=== PATIENT | female | born 1955 | race Caucasian/White ===

== ENCOUNTER 2016-08-14 08:03 | Outpatient (CLI) | payer MEDICAID | END 2016-08-14 08:04 | disposition home or self-care (01) | DX: I10 Essential (primary) hypertension (principal); Z13.1 Encounter for screening for diabetes mellitus; Z13.220 Encounter for screening for lipoid disorders; Z13.29 Encounter for screening for other suspected endocrine disorder ==

== ENCOUNTER 2016-09-26 16:17 | Outpatient (CLI) | payer MEDICAID | END 2016-09-26 16:18 | disposition home or self-care (01) | DX: M19.012 Primary osteoarthritis, left shoulder (principal); M75.92 Shoulder lesion, unspecified, left shoulder ==

== ENCOUNTER 2017-04-07 09:47 | Outpatient (CLI) | payer MEDICAID ==
--- NOTE | 2017-04-07 13:15 | XRAY Report ---
COMPLETE LUMBAR SPINE: 04/07/2017 CLINICAL INDICATION: Degenerative disk disease. COMPARISON: 12/24/2010 FINDINGS: AP, lateral, oblique, coned-down views of the lumbar spine demonstrate moderate degenerati ve changes, with disk space narrowing worst at L5-S1. There is no evidence of interval compression f racture. Left nephrolithiasis has decreased in the interval. IMPRESSION: MODERATE DEGENERATIVE DISC AND FACET DISEASE. 13:9:18 JOB #: [id number] EXT JOB #:[id number]
== END 2017-04-07 09:48 | disposition home or self-care (01) ==
LOC: DI.S 09:47
PROVIDERS: ATTEND Nurse Practitioner Family
DX: M51.36 Other intervertebral disc degeneration, lumbar region (principal); M47.896 Other spondylosis, lumbar region
CPT/HCPCS: 72110

== ENCOUNTER 2017-05-09 09:53 | Emergency (ER) | payer MEDICAID ==
--- NOTE | 2017-05-09 11:29 | ED Physician Documentation ---
PD HPI UPPER EXT INJURY - Stated complaint Stated Complaint: LEFT SHOULDER PX - Chief complaint Chief Complaint: Ext Problem - History obtained from History obtained from: Patient - History of Present Illness Location: Left, Shoulder Type of injury: Other (has had pain in the shoulder due to arthritis, with prior steroid injection to it. Has increased pain over baseline, without new injury. Same symptoms at anterolateral shoulder, worse with any ROM. Does not have sling.). No: Fall, Twist Timing - duration: Days (increased pain in shoulder for several days without apparent new injury.) Timing - details: Gradual onset, Still present Improved by: Immobilization Worsened by: Moving, Palpating Associated symptoms: Numbness (lateral upper arm). No: Weakness, Swelling, Discolored Similar symptoms before: Diagnosis (shoulder arthritis) Review of Systems Constitutional: denies: Fever, Chills Skin: denies: Rash, Lesions Musculoskeletal: denies: Neck pain, Back pain Neurologic: reports: Numbness (lateral upper arm. 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 : Incontinence, Frequency HEENT: None Psych: Anxiety, Panic attacks Musculoskeletal: None Derm: None - Past Surgical History Past Surgical History: Yes General: Appendectomy Ortho: Hip replacement - Present Medications Home Medications: Ambulatory Orders Medication Instructions Recorded Confirmed Loratadine [Claritin] 10 mg PO DAILY 02/01/13 05/09/17 Oxybutynin [Ditropan] 5 mg PO BID 02/01/13 05/09/17 Ranitidine HCl 75 mg PO DAILY 02/01/13 05/09/17 Ipratropium/Albuterol [Duoneb] 3 ml INH BID #1 08/31/15 05/09/17 Albuterol Sulfate [Proair 1 puffs INH DAILY 11/09/15 05/09/17 Respiclick] Esomeprazole Magnesium [Nexium] 20 mg PO DAILY 11/09/15 05/09/17 Senna [Senokot] 1 tab PO DAILY PRN 11/09/15 05/09/17 Dexamethasone [Decadron] 4 mg PO DAILY #5 tablet 05/09/17 HYDROcod/ACETAM 5/325 [[place] 5/325] 1 tab PO Q6H PRN #15 tablet 05/09/17 - Allergies Allergies/Adverse Reactions: Allergies Allergy/AdvReac Type Severity Reaction Status Date / Time morphine Allergy Severe Rash Verified 05/09/17 10:03 Penicillins Allergy Intermediate Rash Verified 05/09/17 10:03 - Social History Does the pt smoke?: No Smoking Status: Never smoker Does the pt drink ETOH?: No Does the pt have substance abuse?: No - Immunizations Immunizations are current?: No Immunizations: TDAP >10years/unknown - POLST Patient has POLST: No PD ED PE NORMAL - Vitals Vital signs reviewed: Yes - General General: Alert and oriented X 3, No acute distress, Well developed/nourished - Neck Neck: Supple, no meningeal sign, No bony TTP, No adenopathy - Cardiac Cardiac: RRR, No murmur - Respiratory Respiratory: Clear bilaterally - Derm Derm: Normal color, Warm and dry, No rash - Extremities Extremities: Other (left shoulder tender lateral and anteriorly mostly. No obvious deformity. No rash. She is guarding motion of the shoulder. Pain with any attempted ROM, but owrse with abduction and external rotation. ) Results - Vitals Vitals: Vital Signs - 24 hr 05/09/17 05/09/17 10:00 12:29 Temperature 36.5 C Heart Rate 89 77 Respiratory 16 17 Rate Blood Pressure 148/83 H 131/65 H O2 Saturation 100 100 Oxygen O2 Source Room air Departure - Departure Disposition: 01 Home, Self Care Clinical Impression: Shoulder pain, left Qualifiers: Chronicity: acute Qualified Code(s): M25.512 - Pain in left shoulder Condition: Stable Record reviewed to determine appropriate education?: Yes Follow-Up: Debby Hendrix ARNP [Primary Care Provider] - Prescriptions: Dexamethasone [Decadron] 4 mg PO DAILY #5 tablet HYDROcod/ACETAM 5/325 [[place] 5/325] 1 tab PO Q6H PRN #15 tablet PRN Reason: Pain Comments: Continue the Aleve twice daily. Add Decadron daily for 5 more days to try to reduce inflammation in the shoulder. Add Tylenol 500 mg every 6 hours as needed for pain. Alternatively hydrocodone every 6 hours for pain. Follow-up with your primary care or orthopedics, call for an appointment. Discharge Date/Time: 05/09/17 12:39
[2017-05-09] MEDS ORDERED: DEXAMETHASONE 10 MG/ML VIAL PO STA (12:18)
[2017-05-09] MEDS ORDERED: HYDROcod/ACETAM 5/325 MG TABLET PO STA (12:18)
[2017-05-09] MEDS ORDERED: DEXAMETHASONE 10 MG/ML VIAL ONE (12:29)
[2017-05-09] MEDS ORDERED: HYDROcod/ACETAM 5/325 MG TABLET ONE (12:29)
[2017-05-09] MEDS ORDERED: CHERRY SYRUP 10 ML UDC PO ONE (12:30)
[2017-05-09 12:32] VITALS: BP 131/65
== END 2017-05-09 12:39 | disposition home or self-care (01) ==
LOC: ED 09:53
DX: M25.512 Pain in left shoulder (principal); I10 Essential (primary) hypertension; J45.909 Unspecified asthma, uncomplicated; K21.9 Gastro-esophageal reflux disease without esophagitis
CPT/HCPCS: 99283; A9270

== ENCOUNTER 2017-06-16 07:41 | Outpatient (CLI) | payer MEDICAID ==
--- NOTE | 2017-06-16 11:27 | MRI Report ---
EXAM: LEFT SHOULDER MRI WITHOUT CONTRAST EXAM DATE: 06/16/2017 08:19 AM. CLINICAL HISTORY: Left rotator cuff tear. Chronic pain. COMPARISON: Prior MRI 09/26/2016. TECHNIQUE: Multiplanar, multisequence T1-weighted and fluid-sensitive sequences of the shoulder witho ut contrast. Other: None. FINDINGS: Acromioclavicular Region: The acromion is type II. There is marked edema of the distal acromion where it overlies the humeral head. The inferior cortical surface of the acromion appears discontinuous jansen ggesting erosion or fracture. The acromioclavicular joint appears unremarkable. There is fluid in the subacromial bursa. Glenohumeral Region: There is subchondral cyst formation in the posterior half of the bony glenoid, w ith remodeling of the subchondral bone and thinning of the overlying hyaline cartilage. There is post erior and superior subluxation of the humeral head with osteophyte formation. There is moderate thick ening of the humeral hyaline cartilage. Bone Marrow: See above. Labrum: The posterior labrum appears torn in both the posterior superior and posteroinferior quadrant s. The anterior and superior labrum appear intact. Musculature/Rotator Cuff: There is tendinosis and low-grade partial thickness tearing of supraspinatu s without atrophy. Infraspinatus and subscapularis appear intact. No edema or fatty atrophy. Biceps Tendon: The long head of the biceps tendon and biceps nicolas are intact. Other: The subcutaneous tissues are unremarkable. IMPRESSION: 1. Findings suggestive of prior posterior dislocation with osteochondral injury of the posterior half of the bony glenoid. There is moderate glenohumeral osteoarthritis. The finding is unchanged when co mpared with the prior study. 2. Posterior and superior subluxation of the humeral head, unchanged. 3. Marked marrow edema affecting the acromion where it overlies the humeral head, suggesting either s evere reactive edema from pseudoarticulation, or a nondisplaced fracture from recent trauma. This fin ding was not present on the prior study. 4. Subacromial bursal effusion. [facility] MUSCULOSKELETAL RADIOLOGY SECTION Referring Provider Line: [phone] SITE ID: [id number]
== END 2017-06-16 07:42 | disposition home or self-care (01) ==
LOC: DI 07:41
PROVIDERS: ATTEND Orthopaedic Surgery
DX: M75.102 Unspecified rotator cuff tear or rupture of left shoulder, not specified as traumatic (principal); M75.02 Adhesive capsulitis of left shoulder; M19.012 Primary osteoarthritis, left shoulder; M25.412 Effusion, left shoulder

== ENCOUNTER 2017-09-05 14:00 | Emergency (ER) | payer MEDICAID ==
[2017-09-05 14:16] VITALS: BP 154/90
--- NOTE | 2017-09-05 15:25 | ED Physician Documentation ---
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 : Incontinence, Frequency HEENT: None Psych: Anxiety, Panic attacks Musculoskeletal: None Derm: None - Past Surgical History Past Surgical History: Yes General: Appendectomy Ortho: Hip replacement - Present Medications Home Medications: Ambulatory Orders Medication Instructions Recorded Confirmed Loratadine [Claritin] 10 mg PO DAILY 02/01/13 05/09/17 Oxybutynin [Ditropan] 5 mg PO BID 02/01/13 05/09/17 Ranitidine HCl 75 mg PO DAILY 02/01/13 05/09/17 Ipratropium/Albuterol [Duoneb] 3 ml INH BID #1 08/31/15 05/09/17 Albuterol Sulfate [Proair 1 puffs INH DAILY 11/09/15 05/09/17 Respiclick] Esomeprazole Magnesium [Nexium] 20 mg PO DAILY 11/09/15 05/09/17 Senna [Senokot] 1 tab PO DAILY PRN 11/09/15 05/09/17 Dexamethasone [Decadron] 4 mg PO DAILY #5 tablet 05/09/17 HYDROcod/ACETAM 5/325 [[place] 5/325] 1 tab PO Q6H PRN #15 tablet 05/09/17 Clindamycin [Cleocin] 300 mg PO Q6H 7 Days capsule 09/05/17 oxyCODONE [Roxicodone] 5 mg PO Q4-6H PRN #6 tablet 09/05/17 - Allergies Allergies/Adverse Reactions: Allergies Allergy/AdvReac Type Severity Reaction Status Date / Time morphine Allergy Severe Rash Verified 05/09/17 10:03 Penicillins Allergy Intermediate Rash Verified 05/09/17 10:03 - Social History Does the pt smoke?: No Smoking Status: Never smoker Does the pt drink ETOH?: No Does the pt have substance abuse?: No - Immunizations Immunizations are current?: No Immunizations: TDAP >10years/unknown - POLST Patient has POLST: No PD ED PE NORMAL - Vitals Vital signs reviewed: Yes - HEENT HEENT: Other (extensive decay with teeth rotted to the gum lines, no trsimus but tender to palpate upper gum line, no visible abscess to anish) - Neck Neck: Supple, no meningeal sign - Cardiac Cardiac: RRR - Respiratory Respiratory: No respiratory distress - Abdomen Abdomen: Soft, Non tender - Neuro Neuro: Alert and oriented X 3 Results - Vitals Vitals: Vital Signs - 24 hr 09/05/17 14:13 Temperature 36.9 C Heart Rate 101 H Respiratory 18 Rate Blood Pressure 154/90 H O2 Saturation 96 Oxygen O2 Source Room air Departure - Departure Disposition: Home, Self Care Clinical Impression: Dental infection Condition: Good Instructions: ED Tooth Pain Prescriptions: Clindamycin [Cleocin] 300 mg PO Q6H 7 Days capsule oxyCODONE [Roxicodone] 5 mg PO Q4-6H PRN #6 tablet PRN Reason: Pain Comments: Take the clindamycin Take tylenol for mild to moderate pain - no more than 3000 mg per day May take oxycodone as needed for severe pain but please limit use of narcotics. Follow up with [facility] - the antibiotics will help for the short term but will not solve the underlying problem
== END 2017-09-05 15:35 | disposition home or self-care (01) ==
LOC: ED 14:00
DX: K04.7 Periapical abscess without sinus (principal); I10 Essential (primary) hypertension; Z96.649 Presence of unspecified artificial hip joint
CPT/HCPCS: 99283

== ENCOUNTER 2017-10-21 07:48 | Day surgery (SDC) | payer MEDICAID ==
[2017-10-21] MEDS ORDERED: KETOROLAC 60 MG/2 ML VIAL IVP STA (08:08)
--- NOTE | 2017-10-21 08:11 | ED Physician Documentation ---
PD HPI ABD PAIN - Stated complaint Stated Complaint: ABD PX - Chief complaint Chief Complaint: Abd Pain - History obtained from History obtained from: Patient - History of Present Illness Timing - onset: How many weeks ago (1) Timing - details: Intermittant Quality: Pain Location: RUQ Worsened by: Eating Associated symptoms: No: Fever, Nausea, Vomiting, Diarrhea, Dysuria Similar symptoms before: Has not had sx before - Additional information Additional information: The patient is a 62-year-old female who presents with right upper quadrant abdominal pain. She has had similar pain intermittently for the past week. It is worse after eating. She denies fever, vomiting, diarrhea, or dysuria. She denies history of similar symptoms in the past. Past medical history is significant for asthma. She is status post appendectomy. Review of Systems Constitutional: denies: Fever Nose: denies: Congestion Throat: denies: Sore throat Cardiac: denies: Chest pain / pressure Respiratory: denies: Dyspnea, Cough GI: reports: Abdominal Pain. 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 : Incontinence, Frequency HEENT: None Psych: Anxiety, Panic attacks Musculoskeletal: None Derm: None - Past Surgical History Past Surgical History: Yes General: Appendectomy Ortho: Hip replacement - Present Medications Home Medications: Ambulatory Orders Medication Instructions Recorded Confirmed Loratadine [Claritin] 10 mg PO DAILY 02/01/13 10/21/17 Oxybutynin [Ditropan] 5 mg PO BID 02/01/13 10/21/17 Ranitidine HCl 75 mg PO DAILY 02/01/13 10/21/17 Ipratropium/Albuterol [Duoneb] 3 ml INH BID #1 08/31/15 10/21/17 Albuterol Sulfate [Proair 1 puffs INH DAILY 11/09/15 10/21/17 Respiclick] Esomeprazole Magnesium [Nexium] 20 mg PO DAILY 11/09/15 10/21/17 Senna [Senokot] 1 tab PO DAILY PRN 11/09/15 10/21/17 - Allergies Allergies/Adverse Reactions: Allergies Allergy/AdvReac Type Severity Reaction Status Date / Time morphine Allergy Severe Rash Verified 05/09/17 10:03 Penicillins Allergy Intermediate Rash Verified 05/09/17 10:03 - Social History Does the pt smoke?: No Smoking Status: Never smoker Does the pt drink ETOH?: No Does the pt have substance abuse?: No - Immunizations Immunizations are current?: No Immunizations: TDAP >10years/unknown - POLST Patient has POLST: No PD ED PE NORMAL - Vitals Vital signs reviewed: Yes (Systolic hypertension initially.) - General General: Alert and oriented X 3, Well developed/nourished - HEENT HEENT: Atraumatic, Pharynx benign - Neck Neck: No adenopathy, No JVD - Cardiac Cardiac: RRR, No murmur - Respiratory Respiratory: No respiratory distress, Clear bilaterally - Abdomen Abdomen: Normal bowel sounds, Soft, No organomegaly, Other (Tenderness to palpation in the right upper quadrant, without rebound tenderness or guarding.) - Back Back: Other (Mild right CVA tenderness to percussion.) - Derm Derm: No rash - Extremities Extremities: No edema, No calf tenderness / cord - Neuro Neuro: Alert and oriented X 3, No motor deficit, Normal speech Results - Vitals Vitals: Vital Signs - 24 hr 10/21/17 10/21/17 07:57 09:47 Temperature 36.0 C L Heart Rate 80 75 Respiratory 17 16 Rate Blood Pressure 148/73 H 119/66 O2 Saturation 100 100 Oxygen O2 Source Room air - Labs Labs: Laboratory Tests 10/21/17 10/21/17 10/21/17 08:08 08:19 08:19 WBC 8.1 RBC 4.56 Hgb 13.7 Hct 40.1 MCV 88.0 MCH 30.0 MCHC 34.1 RDW 13.5 Plt Count 178 MPV 8.9 Neut # 3.4 Lymph # 3.3 [place] # 1.0 Eos # 0.4 Baso # 0.1 Absolute Nucleated RBC 0.00 Nucleated RBC % 0.0 Sodium 137 Potassium 3.9 Chloride 99 L Carbon Dioxide 31 Anion Gap 7.0 BUN 22 H Creatinine 0.7 Estimated GFR (MDRD) 85 L Glucose 89 Calcium 10.1 Total Bilirubin 0.6 AST 43 H ALT 178 H Alkaline Phosphatase 116 Total Protein 7.4 Albumin 4.3 Globulin 3.1 Albumin/Globulin Ratio 1.4 Lipase 19 L Urine Color YELLOW Urine Clarity CLEAR Urine pH 6.5 Ur Specific [place] <=1.005 Urine Protein NEGATIVE Urine Glucose (UA) NEGATIVE Urine Ketones NEGATIVE Urine Occult Blood NEGATIVE Urine Nitrite NEGATIVE Urine Bilirubin NEGATIVE Urine Urobilinogen 0.2 (NORMAL) Ur Leukocyte Esterase NEGATIVE Ur Microscopic Review NOT INDICATED Urine Culture Comments NOT INDICATED - Rads (name of study) RUQ U/S Radiology: Prelim report reviewed, EMP read contemporaneously, See rad report ( Cholelithiasis. No biliary dilatation, common bile duct 5 mm. Fatty liver.) PD MEDICAL DECISION MAKING - ED course Complexity details: reviewed results, re-evaluated patient, considered differential, d/w patient, d/w consultant education ED course: The patient's presentation is most consistent with symptomatic cholelithiasis, with tenderness to palpation of the right upper quadrant, and with ultrasound that reveals gallstones, with out evidence of acute cholecystitis. Her CBC reveals a normal white count of 8.1. Liver enzymes are normal except for mildly elevated ALT of 178. Treatment in the emergency department included administration of ketorolac 30 mg IV. The patient's pain improved with the above treatment. I discussed her condition with Dr. Cruz, who plans surgical intervention. Departure - Departure Disposition: ED Transfer to [facility] Clinical Impression: Symptomatic cholelithiasis Condition: Stable
[2017-10-21 08:22] LABS: BILIRUBIN,URINE NEGATIVE (NEGATIVE); GLUCOSE, URINE (UA) NEGATIVE (NEGATIVE); KETONES,URINE (UA) NEGATIVE (NEGATIVE); LEUKOCYTE ESTERASE, URINE NEGATIVE (NEGATIVE); NITRITE,URINE NEGATIVE (NEGATIVE); OCCULT BLOOD,URINE NEGATIVE (NEGATIVE); PH,URINE 6.5 PH (5.0-7.5); PROTEIN,URINE NEGATIVE (NEGATIVE); UROBILINOGEN,URINE 0.2 (NORMAL) E.U./dL (NORMAL)
[2017-10-21 08:26] LABS: BASOPHILS # (AUTO) 0.1 10^3/uL (0.0-0.1); BASOPHILS % (AUTO) 0.8 %; EOSINOPHILS # (AUTO) 0.4 10^3/uL (0.0-0.7); EOSINOPHILS % (AUTO) 4.8 %; HGB - HEMOGLOBIN 13.7 g/dL (12.0-16.0); LYMPHOCYTES # (AUTO) 3.3 10^3/uL (1.5-3.5); LYMPHOCYTES % (AUTO) 40.6 %; MEAN CORPUSCULAR HGB CONC 34.1 g/dL (32.0-36.0); MEAN PLATELET VOLUME 8.9 fL (7.9-10.8); MONOCYTES % (AUTO) 11.8 %; NEUTROPHILS # (AUTO) 3.4 10^3/uL (1.5-6.6); PLT - PLATELET COUNT 178 10^3/uL (130-450); RED BLOOD COUNT 4.56 10^6/uL (4.20-5.40); RED CELL DISTRIBUTION WIDTH 13.5 % (12.0-15.0); WHITE BLOOD COUNT 8.1 x10^3/uL (4.8-10.8)
[2017-10-21 08:28] LABS: CLARITY,URINE CLEAR (CLEAR)
[2017-10-21 08:38] LABS: ALBUMIN 4.3 g/dL (3.2-5.5); ALBUMIN/GLOBULIN RATIO 1.4 (1.0-2.2); BILIRUBIN,TOTAL 0.6 mg/dL (0.2-1.0); CALCIUM 10.1 mg/dL (8.5-10.3); CREATININE 0.7 mg/dL (0.4-1.0); TOTAL PROTEIN 7.4 g/dL (6.7-8.2)
--- NOTE | 2017-10-21 09:59 | Ultrasound Report ---
RIGHT UPPER QUADRANT ULTRASOUND: 10/21/2017 CLINICAL INDICATION: Pain. TECHNIQUE: Real-time scanning was performed with traffic representative static images obtained. FINDINGS: The liver measures 20 cm. Hepatic echogenicity is increased, compatible with fatty infiltration. No focal hepatic lesion or intrahepatic biliary dilatation is present. The common bile duct measures 5 mm. The gallbladder demonstrates multiple calculi. No wall thickening or pericholecystic fluid is present. The right kidney measures 11.7 cm, and demonstrates no hydronephrosis. No free fluid is present. IMPRESSION: CHOLELITHIASIS, WITHOUT EVIDENCE OF BILIARY OBSTRUCTION. FATTY INFILTRATION OF THE LIVER. TD: 10/21/2017 09:58
--- NOTE | 2017-10-21 10:38 | CONSULTATION NOTE ---
Referring Provider Name of Referring Provider:: MD Tereza Consult Date: 10/21/17 Chief Complaint - Chief Complaint Chief Complaint: RUQ pain worsened with eating History of Present Illness - Admitted From Admitted From:: NOT admitted but brought in as outpatient for outpatient surgery - History Obtained From Records Reviewed: Yes History obtained from: Patient Exam Limitations: None - History of Present Illness HPI Comment/Other: Dr. Starks called me on consultation on this very pleasant 62-year-old female who was interviewed in room 8 at [facility]'s emergency department. Her pain started approximately 1 week ago. She is dieting attempt to lose weight and when the pain started her daughter thought it was because she had not eaten anything. The daughter recommended that she eats some food and she had some chicken which made the pain worse. Since that occurred she has had waxing and waning pain for the past 24-36 hours the pain was unremitting and she came to the emergency department. Has not been associated with nausea, vomiting, melena, hematochezia, hematemesis, constipation, or diarrhea. 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 : reports: Incontinence, Frequency HEENT: reports: None Psych: reports: Anxiety, Panic attacks Musculoskeletal: reports: None Derm: reports: None MRSA Hx?: Yes - Past Surgical History General: reports: Appendectomy Ortho: reports: Hip replacement - Substance History Use: Uses substance without health or social issues: NONE Abuse: Recurrent use of substance despite neg consequences: NONE Dependence: Experiences withdrawal or developed tolerances: NONE - POLST Patient has POLST: No Meds/Allgy - Home Medications Home Medications: Ambulatory Orders Medication Instructions Recorded Confirmed Loratadine [Claritin] 10 mg PO DAILY 02/01/13 10/21/17 Oxybutynin [Ditropan] 5 mg PO BID 02/01/13 10/21/17 Ranitidine HCl 75 mg PO DAILY 02/01/13 10/21/17 Ipratropium/Albuterol [Duoneb] 3 ml INH BID #1 08/31/15 10/21/17 Albuterol Sulfate [Proair 1 puffs INH DAILY 05/12/16 04/24/18 Respiclick] Esomeprazole Magnesium [Nexium] 20 mg PO DAILY 11/09/15 10/21/17 Senna [Senokot] 1 tab PO DAILY PRN 11/09/15 10/21/17 - Allergies Allergies/Adverse Reactions: Allergies Allergy/AdvReac Type Severity Reaction Status Date / Time morphine Allergy Severe Rash Verified 05/09/17 10:03 Penicillins Allergy Intermediate Rash Verified 05/09/17 10:03 Review of Systems - Constitutional Constitutional: denies: Fatigue, Fever, Chills, Malaise - Eyes Eyes: denies: Pain - Ears, Nose & Throat Ears, Nose & Throat: denies: Ear pain - Cardiovascular Cariovascular: denies: Irregular heart rate - Respiratory Respiratory: reports: Wheezing - Gastrointestinal Gastrointestinal: reports: Abdominal pain. denies: Diarrhea, Rectal bleeding, Black stools, Bloody stools, Nausea, Vomiting, Bile emesis, Gautam blood emesis - Genitourinary Genitourinary: denies: Dysuria - Musculoskeletal Musculoskeletal: denies: Muscle pain - Integumentary Integumentary: denies: Rash - Neurological Neurological: denies: General weakness, Focal weakness Exam - Vital Signs Reviewed Vital Signs: Yes Vital Signs: Vital Signs x48h Temp Pulse Resp BP Pulse Ox 10/21/17 09:47 75 16 119/66 100 10/21/17 07:57 36.0 C L 80 17 148/73 H 100 - Physical Exam General Appearance: positive: No acute distress Eyes Bilateral: positive: No lid inflammation, Conjunctivae nml, No scleral icterus ENT: positive: Dry mucous membranes, Other (Poor dentition.) Neck: positive: Trachea midline Respiratory: positive: Chest non-tender, No respiratory distress, Breath sounds nml Cardiovascular: positive: Regular rate & rhythm Abdomen: positive: Nml bowel sounds, Tenderness (In right upper quadrant.). negative: Hepatomegaly, Splenomegaly Skin: positive: Color nml Extremities: positive: Nml appearance Neurologic/Psychiatric: positive: Oriented x3 Conclusion/Plan - Diagnosis Diagnosis: Symptomatic cholelithiasis - Plan Plan: Laparoscopic cholecystectomy, possible open cholecystectomy, possible intraoperative cholangiogran, possible common bile duct exploration. The indications, procedure, alternatives including no surgery, ingestion of Actigall , possible risks including infection (deep or superficial), bleeding requiring transfusion (with all of its risks), common bile duct injury requring repair and additional surgery, and were fully explained to the patient and all questions answered. I also explained the pathophysiology. I explained that following the surgery I did not want her lifting anything over 15 pounds for 6 weeks to allow for optimal healing and to decrease the likelihood that a hernia would occur. All questions were fully answered. Verbal and written consent was obtained. The patient, in preparation for surgery will be nothing by mouth , and receive 2 gm of Cephalexin with induction. I asked her to contact me with any surgical questions and her concerns and she stated that she would. I asked her to let me know if there is any way we can make her stay at [facility] more comfortable and she stated that she would let me know. 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 I explained that she could definitely be part of the paper sealer but that she may be tired. The plan is to do this operation as an outpatient procedure and to discharge her home following the procedure. 35 minutes of [id number] time spent with the patient, over 80% in discussion and coordination of her care - Lab Results Fish Bones: 10/21/17 08:19 10/21/17 08:19 - Diagnostic Imaging Results Diagnostic Imaging Results: positive: Prelim report reviewed (She had a cup of coffee with creamer at 0630 this morning.), Final report reviewed
[2017-10-21] MEDS ORDERED: BUPIVACAINE 0.5% PF 30 ML VIAL ONE (10:40)
[2017-10-21] MEDS ORDERED: LACTATED RINGERS 1,000 ML IV ONE ×2 (11:09→12:01)
[2017-10-21] MEDS ORDERED: ONDANSETRON 4 MG/2 ML VIAL IVP ONE (11:30)
[2017-10-21] MEDS ORDERED: MIDAZOLAM 2 MG/2 ML VIAL IVP ONE (11:30)
[2017-10-21] MEDS ORDERED: SUCCINYLCHOLINE 200 MG/10 ML VIAL IVP ONE (11:30)
[2017-10-21] MEDS ORDERED: METOPROLOL 5 MG/5 ML VIAL IVP ONE (11:30)
[2017-10-21] MEDS ORDERED: ceFAZolin 1 GM VIAL IV ONE (11:30)
[2017-10-21] MEDS ORDERED: KETOROLAC 30 MG/ML VIAL IVP ONE (11:30)
[2017-10-21] MEDS ORDERED: fentaNYL 250 MCG/5 ML VIAL IVP ONE (11:30)
[2017-10-21] MEDS ORDERED: PROPOFOL 200 MG/20 ML VIAL IVP ONE (11:30)
[2017-10-21] MEDS ORDERED: ROCURONIUM 50 MG/5 ML VIAL IVP ONE (11:30)
[2017-10-21] MEDS ORDERED: DEXAMETHASONE 4 MG/ML VIAL IVP ONE (11:30)
[2017-10-21] MEDS ORDERED: LIDOCAINE-MPF 2% 5 ML VIAL IM ONE (11:30)
[2017-10-21] MEDS ORDERED: BUPIVACAINE 0.5% PF 30 ML VIAL INFIL ONE ×2 (11:45→12:09)
--- NOTE | 2017-10-21 12:41 | OPERATIVE REPORT ---
Operative Report - General Procedure Date: 10/21/17 Planned Procedure: Laparoscopic cholecystectomy Pre-Op Diagnosis: Symptomatic cholelithiasis Procedure Performed: Laparoscopic cholecystectomy Post Op Diagnosis: Symptomatic cholelithiasis - Procedure Note Primary Surgeon: Dave Maxwell MD Anesthesia Provider: Yaniv Kidd CRNA Anesthesia Technique: General ET tube, Local (30 mL half percent Marcaine) IV Fluids (mL): 1,200 Estimated Blood Loss (mL): 5 Complications: None. - Other Other Information/Narrative: OPERATIVE DESCRIPTION/REPORT: After verbal and written informed consent was obtained detailing the risks of infection, bleeding with all of its risks including transfusion, common bile duct injury, and the patient was brought to the operative suite and placed in the supine position on the operating room table. Monitoring devices were applied along with TEDs and pneumatic compressive stockings. Care was taken to avoid pressure points. Prophylactic antibiotics were given. An adequate level of general endotracheal anesthesia was established by Yaniv Kidd. The abdomen was then prepped with ChloraPrep and draped in a sterile fashion. A "time in" then confirmed that the patient was identified with 3 identifiers (name, date and medical record number), the history and physical was in the chart, the signed consent confirming the procedure was in the chart, the patient was in the correct position, the aforementioned prophylactic measures were in place or given, we had the correct personnel and equipment to complete the procedure and that anesthesia, surgery and nursing were given an opportunity to express any concerns. The initial incision was at the umbilicus and dissection to the linea alba was completed using blunt dissection. The linea alba was grasped with a Trip and incised. In a similar manner the peritoneum was grasped and incised using Metzenbaum scissors. In this location, a 12 mm blunt tipped, balloon tipped port was placed and the balloon was inflated to keep the port in position. The abdominal cavity was insufflated with carbon dioxide to steady-state pressure of 15 mmHg. Three additional 5 mm ports were placed in standard location for laparoscopic cholecystectomy (subxiphoid and 2 right subcostal) under direct vision of the 30 degree laparoscope and without incident. The patient was then placed in reverse Trendelenburg position and was rotated slightly to their left. The gallbladder fundus was grasped with an atraumatic grasper. Multiple adhesions had to be taken down by blunt and sharp dissection along with electrocautery. Eventually, we identified the infundibulum, and this was then grasped and retracted inferior and laterally. Dissection was then begun in the angle of Calot. The cystic duct and (slightly medially and posteriorly) cystic artery were clearly identified. The critical view was obtained. Two clips proximally and one clip distally were used to control both the cystic duct and cystic artery. The clips were carefully placed to avoid occluding the juncture with the common bile duct. Both the cystic duct and then the cystic artery were then transected with laparoscopic zakia. The gallbladder was then removed from its fossa in a retrograde fashion using electrocautery. With the 30 degree 5 mm scope in the subxiphoid position, the gallbladder was placed in an EndoCatch bag to be extracted through the 12 mm port site. I irrigated the right upper quadrant with a liter of warm sterile saline, and the area was aspirated dry. I inspected the gallbladder fossa and there was no bleeding or bile leak. Clips on the cystic duct and cystic artery appeared to be secure. I briefly visually explored the abdomen. There was no other evidence of overt pathology. I injected the port sites at the peritoneal, fascial, and skin levels under direct vision with 0.5% Marcaine. All ports and the EndoCatch containing the gallbladder were removed. Following gallbladder removal, the remaining carbon dioxide was expelled from the abdomen. The fascia at the umbilicus was reapproximated using 2 gvzvlz-mr-jpzkl 0 Vicryl sutures. The skin at each port site was approximated using a subcuticular 4-0 Monocryl. The surgical count of instruments, needles and sponges was reported as correct twice. Mastisol, Steri-Strips and sterile surgical dressings were applied. The patient was then awakened from anesthesia, extubated, and having tolerated the procedure well, was transported to the recovery room. No complications were encountered. A "time out" confirmed the operation performed , the fluids given, the estimated blood loss and anesthesia, surgery and nursing were given an opportunity to express any concerns.
[2017-10-21] MEDS ORDERED: ONDANSETRON 4 MG/2 ML VIAL ONE (13:39)
[2017-10-21] MEDS ORDERED: oxyCOD/ACETAMIN 5 MG/325 MG TABLET PO ONE (13:39)
[2017-10-21 14:03] VITALS: BP 106/89
== END 2017-10-21 10:11 | disposition home or self-care (01) ==
LOC: ED 07:48 → SDS 10:10
PROVIDERS: ATTEND Surgery
PROC: 0FT44ZZ Resection of Gallbladder, Percutaneous Endoscopic Approach (ICD-10-PCS; principal; 2017-10-21 10:30)
DX: K80.10 Calculus of gallbladder with chronic cholecystitis without obstruction (principal); I10 Essential (primary) hypertension; J45.909 Unspecified asthma, uncomplicated
CPT/HCPCS: 36415; 47562; 76705; 80053; 81003; 83690; 85025; 96374; 99283; 99284; A9270; J0330; J3010; J7120; 81001; 87086

== ENCOUNTER 2018-05-28 08:32 | Emergency (ER) | payer MEDICAID ==
--- NOTE | 2018-05-28 08:49 | ED Physician Documentation ---
PD HPI HEENT - Stated complaint Stated Complaint: FACIAL SWELLING - Chief complaint Chief Complaint: Heent - History obtained from History obtained from: Patient - History of Present Illness Timing - onset: How many days ago (2-3) Timing - duration: Days Timing - details: Abrupt onset, Still present (worse into today) Location: Tooth (left upper tooth pain with swelling and now facial swelling. Extends to lower eyelid. No pain in eye socket nor any feeling of pressure around the eye itself.) Worsens: Temperatures, Other (palpation) Associated symptoms: Facial swelling. 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 HEENT: None Psych: Anxiety, Panic attacks Musculoskeletal: None Derm: None - Past Surgical History Past Surgical History: Yes General: Appendectomy Ortho: Hip replacement - Present Medications Home Medications: Ambulatory Orders Medication Instructions Recorded Confirmed Loratadine [Claritin] 10 mg PO DAILY 02/01/13 10/21/17 Oxybutynin [Ditropan] 5 mg PO BID 02/01/13 10/21/17 Ranitidine HCl 75 mg PO DAILY 02/01/13 10/21/17 Ipratropium/Albuterol [Duoneb] 3 ml INH BID #1 08/31/15 10/21/17 Albuterol Sulfate [Proair 1 puffs INH DAILY 11/09/15 10/21/17 Respiclick] Esomeprazole Magnesium [Nexium] 20 mg PO DAILY 11/09/15 10/21/17 Senna [Senokot] 1 tab PO DAILY PRN 11/09/15 10/21/17 Clindamycin HCl [Clindamycin 300MG 300 mg PO TID #21 capsule 05/28/18 CAP] Ondansetron Odt [Zofran] 4 mg TL Q6H PRN #10 tablet 05/28/18 Oxycodone HCl/Acetaminophen 1 each PO Q6H PRN #15 tablet 05/28/18 [Percocet 5-325 mg Tablet] - Allergies Allergies/Adverse Reactions: Allergies Allergy/AdvReac Type Severity Reaction Status Date / Time morphine Allergy Severe Rash Verified 05/28/18 08:46 Penicillins Allergy Intermediate Rash Verified 05/28/18 08:46 - Social History Does the pt smoke?: No Smoking Status: Never smoker Does the pt drink ETOH?: No Does the pt have substance abuse?: No - Immunizations Immunizations are current?: No Immunizations: TDAP >10years/unknown - POLST Patient has POLST: No PD ED PE NORMAL - Vitals Vital signs reviewed: Yes - General General: Alert and oriented X 3, Well developed/nourished - HEENT HEENT: PERRL, EOMI (without eye pain), Other (left cheek to lower eyelid with redness and swelling. No fluctuance. Some firmness just at cheek adjacent to upper teeth. Gumline with redness and swelling. No fluctuance felt. Teeth decaye d to gumline. ) - Neck Neck: Supple, no meningeal sign, No adenopathy - Cardiac Cardiac: RRR, No murmur - Respiratory Respiratory: Clear bilaterally Results - Vitals Vitals: Vital Signs - 24 hr 05/28/18 05/28/18 08:43 08:57 Temperature 36.5 C 37.1 C Heart Rate 107 H 90 Respiratory 24 18 Rate Blood Pressure 168/82 H 147/79 H O2 Saturation 99 97 Oxygen O2 Source Room air Departure - Departure Disposition: 01 Home, Self Care Clinical Impression: Dental abscess, Facial cellulitis Condition: Stable Record reviewed to determine appropriate education?: Yes Instructions: ED Cellulitis Facial, ED Abscess Dental Follow-Up: Debby Hendrix ARNP [Primary Care Provider] - Prescriptions: Clindamycin HCl [Clindamycin 300MG CAP] 300 mg PO TID #21 capsule Ondansetron Odt [Zofran] 4 mg TL Q6H PRN #10 tablet PRN Reason: Nausea / Vomiting Oxycodone HCl/Acetaminophen [Percocet 5-325 mg Tablet] 1 each PO Q6H PRN #15 tablet PRN Reason: pain Comments: Drink lots of fluids. Warm towels to the area of infection to improve blood flow and help fight the infection. Clindamycin as directed for the infection. Tylenol or Percocet if needed for pain. He can use some Aleve twice a day with food for inflammation and pain. Zofran if need for nausea from medications. Recheck if not improving over the next few days. Call your dentist to make an appointment for next week for more definitive care of the teeth cavities. Discharge Date/Time: 05/28/18 09:25
[2018-05-28 08:58] VITALS: BP 147/79
[2018-05-28] MEDS ORDERED: ACETAMINOPHEN 325 MG TABLET PO STA (09:10)
[2018-05-28] MEDS ORDERED: ONDANSETRON ODT 4 MG TABLET TL STA (09:10)
[2018-05-28] MEDS ORDERED: CLINDAMYCIN 150 MG CAPSULE PO STA (09:10)
[2018-05-28] MEDS ORDERED: DEXAMETHASONE 10 MG/ML VIAL PO STA (09:10)
[2018-05-28] MEDS ORDERED: CHERRY SYRUP 10 ML UDC PO ONE (09:20)
== END 2018-05-28 09:25 | disposition home or self-care (01) ==
LOC: ED 08:32
DX: K04.7 Periapical abscess without sinus (principal); L03.211 Cellulitis of face; I10 Essential (primary) hypertension; Z96.649 Presence of unspecified artificial hip joint
CPT/HCPCS: 99283; A9270; Q0162

== ENCOUNTER 2018-08-24 13:00 | Outpatient (CLI) | payer MEDICAID ==
--- NOTE | 2018-08-25 11:01 | XRAY Report ---
Reason: RIB PAIN,LEFT SIDED Procedure Date: 08/24/2018 Accession Number: [id number] / [id number] Procedure: XR - Ribs 2 View LT CPT Code: FULL RESULT: EXAM: LEFT RIB RADIOGRAPHY EXAM DATE: 08/24/2018 01:41 PM. CLINICAL HISTORY: RIB PAIN,LEFT SIDED. COMPARISON: CHEST 2 VIEW PA/LAT 02/01/2013 10:40 AM. TECHNIQUE: 2 views. FINDINGS: Bones: DJD spine No fracture or bone lesion. Lungs: No focal opacities evident. No pneumothorax or pleural effusions. Mediastinum: Heart and cardiomediastinal contours are unremarkable. Other: None. IMPRESSION: Normal rib radiography. RADIA
== END 2018-08-24 13:01 | disposition home or self-care (01) ==
LOC: DI 13:00
PROVIDERS: ATTEND Registered Nurse
DX: R07.81 Pleurodynia (principal)

== ENCOUNTER 2018-09-22 16:28 | Emergency (ER) | payer MEDICAID ==
[2018-09-22 19:00] LABS: BASOPHILS # (AUTO) 0.1 10^3/uL (0.0-0.1); BASOPHILS % (AUTO) 1.2 %; EOSINOPHILS # (AUTO) 0.6 10^3/uL (0.0-0.7); EOSINOPHILS % (AUTO) 6.6 %; HGB - HEMOGLOBIN 12.9 g/dL (12.0-16.0); LYMPHOCYTES # (AUTO) 3.4 10^3/uL (1.5-3.5); LYMPHOCYTES % (AUTO) 34.9 %; MEAN CORPUSCULAR HGB CONC 32.8 g/dL (32.0-36.0); MEAN CORPUSCULAR VOLUME 85.5 fL (81.0-99.0); MONOCYTES # (AUTO) 0.7 10^3/uL (0.0-1.0); MONOCYTES % (AUTO) 7.4 %; NEUTROPHILS # (AUTO) 4.9 10^3/uL (1.5-6.6); NEUTROPHILS % (AUTO) 49.9 %; PLT - PLATELET COUNT 216 10^3/uL (130-450); RED CELL DISTRIBUTION WIDTH 13.5 % (12.0-15.0); WHITE BLOOD COUNT 9.8 x10^3/uL (4.8-10.8)
[2018-09-22 19:10] LABS: ALBUMIN 4.5 g/dL (3.2-5.5); ALBUMIN/GLOBULIN RATIO 1.6 (1.0-2.2); BILIRUBIN,TOTAL 0.2 mg/dL (0.2-1.0); CALCIUM 10.4 mg/dL (8.5-10.3); CREATININE 0.8 mg/dL (0.4-1.0); TOTAL PROTEIN 7.3 g/dL (6.7-8.2)
--- NOTE | 2018-09-22 19:15 | ED Physician Documentation ---
PD HPI GI BLEED - Stated complaint Stated Complaint: RECTAL BLEED - Chief complaint Chief Complaint: Abd Pain - History obtained from History obtained from: Patient - History of Present Illness Timing - onset: Today Timing - duration: Hours Timing - details: Abrupt onset (she had a firm bowel movement earlier today and noted some blood with wiping, and then had some red blood in underwear later in the day. denies abd pain nor rectal pain.) Associated symptoms: BRBPR. 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 HEENT: None Psych: Anxiety, Panic attacks Musculoskeletal: None Derm: None - Past Surgical History Past Surgical History: Yes General: Appendectomy Ortho: Hip replacement - Present Medications Home Medications: Ambulatory Orders Medication Instructions Recorded Confirmed Loratadine [Claritin] 10 mg PO DAILY 02/01/13 10/21/17 Oxybutynin [Ditropan] 5 mg PO BID 02/01/13 10/21/17 Ranitidine HCl 75 mg PO DAILY 02/01/13 10/21/17 Ipratropium/Albuterol [Duoneb] 3 ml INH BID #1 08/31/15 10/21/17 Albuterol Sulfate [Proair 1 puffs INH DAILY 11/09/15 10/21/17 Respiclick] Esomeprazole Magnesium [Nexium] 20 mg PO DAILY 11/09/15 10/21/17 Senna [Senokot] 1 tab PO DAILY PRN 11/09/15 10/21/17 Clindamycin HCl [Clindamycin 300MG 300 mg PO TID #21 capsule 05/28/18 CAP] Ondansetron Odt [Zofran] 4 mg TL Q6H PRN #10 tablet 05/28/18 Oxycodone HCl/Acetaminophen 1 each PO Q6H PRN #15 tablet 11/29/18 [Percocet 5-325 mg Tablet] Hydrocortisone Acetate [Anucort-Hc] 25 mg RC DAILY #5 supp.rect 09/22/18 - Allergies Allergies/Adverse Reactions: Allergies Allergy/AdvReac Type Severity Reaction Status Date / Time morphine Allergy Severe Rash Verified 05/28/18 08:46 Penicillins Allergy Intermediate Rash Verified 05/28/18 08:46 - Social History Does the pt smoke?: No Smoking Status: Never smoker Does the pt drink ETOH?: No Does the pt have substance abuse?: No - Immunizations Immunizations are current?: No Immunizations: TDAP >10years/unknown - POLST Patient has POLST: No PD ED PE NORMAL - Vitals Vital signs reviewed: Yes - General General: Alert and oriented X 3, No acute distress, Well developed/nourished - Abdomen Abdomen: Soft, Non tender - Female Female : Deferred - Rectal Rectal: Other (external hemorrhoid inflammed but not thrombosed. slight bleeding. Rectal digital exam with soft brown stool in vault, which is guiac negative. ) - Back Back: No CVA TTP, No spinal TTP - Derm Derm: Normal color, Warm and dry Results - Vitals Vitals: Oxygen O2 Source Room air - Labs Labs: Microbiology 09/22/18 19:08 Urine Culture - Preliminary Urine,Random Escherichia Coli Laboratory Tests 09/22/18 09/22/18 09/22/18 18:52 18:52 19:08 WBC 9.8 RBC 4.60 Hgb 12.9 Hct 39.4 MCV 85.5 MCH 28.0 MCHC 32.8 RDW 13.5 Plt Count 216 MPV 10.0 Neut # (Auto) 4.9 Lymph # (Auto) 3.4 [place]ger # (Auto) 0.7 Eos # (Auto) 0.6 Baso # (Auto) 0.1 Absolute Nucleated RBC 0.00 Nucleated RBC % 0.0 Sodium 138 Potassium 3.8 Chloride 103 Carbon Dioxide 25 Anion Gap 10.0 BUN 21 H Creatinine 0.8 Estimated GFR (MDRD) 73 L Glucose 98 Calcium 10.4 H Total Bilirubin 0.2 AST 28 ALT 25 Alkaline Phosphatase 74 Total Protein 7.3 Albumin 4.5 Globulin 2.8 Albumin/Globulin Ratio 1.6 Lipase 24 Urine Color LT. YELLOW Urine Clarity HAZY Urine pH 6.5 Ur Specific Cuddy 1.010 Urine Protein NEGATIVE Urine Glucose (UA) NEGATIVE Urine Ketones NEGATIVE Urine Occult Blood NEGATIVE Urine Nitrite NEGATIVE Urine Bilirubin NEGATIVE Urine Urobilinogen 0.2 (NORMAL) Ur Leukocyte Esterase TRACE H Urine RBC None Seen Urine WBC 4-5 Ur Squamous Epith Cells NONE SEEN Urine Bacteria Many H Ur Microscopic Review INDICATED Urine Culture Comments INDICATED PD MEDICAL DECISION MAKING - ED course Complexity details: considered differential, d/w patient Departure - Departure Disposition: 01 Home, Self Care Clinical Impression: External hemorrhoid, bleeding Condition: Stable Record reviewed to determine appropriate education?: Yes Instructions: ED Hemorrhoids Follow-Up: Maryjane Thrasher ARNP [Primary Care Provider] - Prescriptions: Hydrocortisone Acetate [Anucort-Hc] 25 mg RC DAILY #5 supp.rect Comments: It does look like external hemorrhoids that had been bleeding. There is no signs of colon bleeding at this time. Hemorrhoid is slightly inflamed from and not bleeding currently. You can use thde-oih-mchqdth hemorrhoid cream such as Preparation H. You could use the prescription suppository for inflammation daily for 5 days. You could use both actually. Recheck if persistent over several days or more. Discharge Date/Time: 09/22/18 19:47
[2018-09-22 19:23] LABS: BILIRUBIN,URINE NEGATIVE (NEGATIVE); GLUCOSE, URINE (UA) NEGATIVE (NEGATIVE); KETONES,URINE (UA) NEGATIVE (NEGATIVE); LEUKOCYTE ESTERASE, URINE TRACE (NEGATIVE); NITRITE,URINE NEGATIVE (NEGATIVE); OCCULT BLOOD,URINE NEGATIVE (NEGATIVE); PH,URINE 6.5 PH (5.0-7.5); PROTEIN,URINE NEGATIVE (NEGATIVE); UROBILINOGEN,URINE 0.2 (NORMAL) E.U./dL (NORMAL)
[2018-09-22 19:25] LABS: CLARITY,URINE HAZY (CLEAR)
[2018-09-22 19:45] LABS: BACTERIA,URINE Many /HPF (None Seen); RBC,URINE None Seen /HPF (0-5); SQUAMOUS EPITHELIAL CELL,UR NONE SEEN (<= Few)
[2018-09-22 19:46] VITALS: BP 147/97
== END 2018-09-22 19:47 | disposition home or self-care (01) ==
LOC: ED 16:28
DX: K64.8 Other hemorrhoids (principal); I10 Essential (primary) hypertension
CPT/HCPCS: 36415; 80053; 81001; 81003; 83690; 85025; 87086; 87181; 99283

== ENCOUNTER 2019-12-06 11:05 | Outpatient (CLI) | payer MEDICAID | END 2019-12-06 23:59 | disposition home or self-care (01) | LOC: LAB.R 11:05 | PROVIDERS: ATTEND Registered Nurse | DX: R35.0 Frequency of micturition (principal) | CPT/HCPCS: 87086; 87181 ==

== ENCOUNTER 2020-03-03 09:58 | Outpatient (CLI) | payer MEDICAID ==
[2020-03-03 15:02] LABS: BASOPHILS # (AUTO) 0.1 10^3/uL (0.0-0.1); BASOPHILS % (AUTO) 0.8 %; EOSINOPHILS # (AUTO) 0.6 10^3/uL (0.0-0.7); EOSINOPHILS % (AUTO) 9.3 %; HGB - HEMOGLOBIN 11.3 g/dL (12.0-16.0); LYMPHOCYTES # (AUTO) 2.1 10^3/uL (1.5-3.5); LYMPHOCYTES % (AUTO) 34.5 %; MEAN CORPUSCULAR HEMOGLOBIN 26.2 pg (27.0-31.0); MEAN CORPUSCULAR HGB CONC 30.5 g/dL (32.0-36.0); MEAN CORPUSCULAR VOLUME 85.9 fL (81.0-99.0); MONOCYTES # (AUTO) 0.5 10^3/uL (0.0-1.0); MONOCYTES % (AUTO) 8.1 %; NEUTROPHILS # (AUTO) 2.9 10^3/uL (1.5-6.6); PLT - PLATELET COUNT 212 10^3/uL (130-450); RED BLOOD COUNT 4.32 10^6/uL (4.20-5.40); RED CELL DISTRIBUTION WIDTH 14.8 % (12.0-15.0); WHITE BLOOD COUNT 6.2 x10^3/uL (4.8-10.8)
[2020-03-03 15:25] LABS: ALBUMIN 3.9 g/dL (3.2-5.5); ALBUMIN/GLOBULIN RATIO 1.3 (1.0-2.2); ALKALINE PHOSPHATASE 76 IU/L (42-121); ALT ALANINE AMINOTRANSFERASE 35 IU/L (10-60); AST ASPARTATE AMINOTRANSFERASE 27 IU/L (10-42); BILIRUBIN,TOTAL 0.3 mg/dL (0.2-1.0); BUN - BLOOD UREA NITROGEN 16 mg/dL (6-20); CARBON DIOXIDE - CO2 26 mmol/L (21-32); CHLORIDE 102 mmol/L (101-111); CHOL/HDL RATIO 6.7 (<4.4); CHOLESTEROL 207 mg/dL; CREATININE 0.9 mg/dL (0.4-1.0); GLUCOSE 103 mg/dL (70-100); HDL CHOLESTEROL 31 mg/dL; LDL CHOLESTEROL,CALCULATED 131 mg/dL; LDL/HDL RATIO 4.2 (<4.4); SODIUM 137 mmol/L (135-145); TOTAL PROTEIN 6.9 g/dL (6.7-8.2); VLDL CHOLESTEROL 45 mg/dL
== END 2020-03-03 09:59 | disposition home or self-care (01) ==
LOC: LAB.S 09:58
PROVIDERS: ATTEND Registered Nurse
DX: R35.0 Frequency of micturition (principal); G43.909 Migraine, unspecified, not intractable, without status migrainosus; J45.909 Unspecified asthma, uncomplicated; F41.9 Anxiety disorder, unspecified; R19.8 Other specified symptoms and signs involving the digestive system and abdomen
CPT/HCPCS: 36415; 80053; 80061; 83721; 84443; 85025

== ENCOUNTER 2020-03-17 08:00 | Outpatient (CLI) | payer MEDICAID | END 2020-03-17 23:59 | disposition home or self-care (01) | LOC: LAB.R 08:00 | PROVIDERS: ATTEND Physician Assistant | DX: L03.039 Cellulitis of unspecified toe (principal) | CPT/HCPCS: 81599; 87070; 87075; 87077; 87186; 87205 ==

== ENCOUNTER 2021-07-05 08:00 | Outpatient (CLI) | payer MEDICAID ==
[2021-07-05 15:29] LABS: BASOPHILS # (AUTO) 0.1 10^3/uL (0.0-0.1); BASOPHILS % (AUTO) 1.2 %; EOSINOPHILS # (AUTO) 0.3 10^3/uL (0.0-0.7); EOSINOPHILS % (AUTO) 5.7 %; HCT - HEMATOCRIT 35.8 % (37.0-47.0); HGB - HEMOGLOBIN 11.2 g/dL (12.0-16.0); LYMPHOCYTES # (AUTO) 1.9 10^3/uL (1.5-3.5); LYMPHOCYTES % (AUTO) 31.8 %; MEAN CORPUSCULAR HEMOGLOBIN 26.2 pg (27.0-31.0); MEAN CORPUSCULAR HGB CONC 31.3 g/dL (32.0-36.0); MEAN CORPUSCULAR VOLUME 83.8 fL (81.0-99.0); MEAN PLATELET VOLUME 13.2 fL (7.9-10.8); MONOCYTES # (AUTO) 0.4 10^3/uL (0.0-1.0); MONOCYTES % (AUTO) 6.5 %; NEUTROPHILS # (AUTO) 3.2 10^3/uL (1.5-6.6); NEUTROPHILS % (AUTO) 54.6 %; PLT - PLATELET COUNT 220 10^3/uL (130-450); RED BLOOD COUNT 4.27 10^6/uL (4.20-5.40); RED CELL DISTRIBUTION WIDTH 14.6 % (12.0-15.0); WHITE BLOOD COUNT 5.8 x10^3/uL (4.8-10.8)
[2021-07-05 15:57] LABS: ALBUMIN/GLOBULIN RATIO 1.3 (1.0-2.2); ALKALINE PHOSPHATASE 75 IU/L (42-121); ALT ALANINE AMINOTRANSFERASE 31 IU/L (10-60); AST ASPARTATE AMINOTRANSFERASE 27 IU/L (10-42); BILIRUBIN,TOTAL 0.5 mg/dL (0.2-1.0); BUN - BLOOD UREA NITROGEN 15 mg/dL (6-20); CALCIUM 10.5 mg/dL (8.5-10.3); CARBON DIOXIDE - CO2 26 mmol/L (21-32); CHLORIDE 104 mmol/L (101-111); CHOL/HDL RATIO 6.6 (<4.4); CHOLESTEROL 191 mg/dL; CREATININE 0.9 mg/dL (0.4-1.0); GFR - MDRD 63 (>89); GLUCOSE 103 mg/dL (70-100); HDL CHOLESTEROL 29 mg/dL; LDL CHOLESTEROL,CALCULATED 122 mg/dL; LDL/HDL RATIO 4.2 (<4.4); MAGNESIUM 1.8 mg/dL (1.7-2.8); POTASSIUM 3.9 mmol/L (3.5-5.0); SODIUM 138 mmol/L (135-145); TRIGLYCERIDES 202 mg/dL; VLDL CHOLESTEROL 40 mg/dL
[2021-07-05 16:07] LABS: THYROID STIMULATING HORMONE 2.62 uIU/mL (0.34-5.60)
== END 2021-07-05 23:59 ==
LOC: LAB.S 08:00
PROVIDERS: ATTEND Physician Assistant Medical
DX: Z51.81 Encounter for therapeutic drug level monitoring (principal); E78.5 Hyperlipidemia, unspecified; M62.838 Other muscle spasm; Z79.899 Other long term (current) drug therapy
CPT/HCPCS: 36415; 80053; 80061; 83721; 83735; 84443; 85025

== ENCOUNTER 2022-01-08 08:00 | Outpatient (CLI) | payer MEDICARE, MEDICAID ==
--- NOTE | 2022-01-08 16:37 | XRAY Report ---
PROCEDURE: Lumbar Spine 2 View INDICATIONS: LOW BACK PAIN TECHNIQUE: 3 views of the lumbar spine were acquired. COMPARISON: 04/07/2017 FINDINGS: There are five [id number] lumbar-type vertebral bodies of normal height and alignment. Disc heig ht loss from L2 L3 through L5 S1 with associated degenerative endplate change and facet hypertrophy. Probable moderate to severe neural foraminal narrowing from L3-L4 through L5-S1. Findings are progres sed from the prior study. 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 Consider MRI, particularly if there are radicular symptoms, as there is suspected at leas t mild to moderate spinal canal and neural foraminal narrowing in the lower lumbar spine. Reviewed by: Leonel Chavarria MD on 01/08/2022 4:36 PM PDT Approved by: Leonel Chavarria MD on 01/08/2022 4:36 PM PDT Station ID: [id number]
== END 2022-01-08 23:59 | disposition home or self-care (01) ==
LOC: DI.S 08:00
PROVIDERS: ATTEND Physician Assistant
DX: M47.816 Spondylosis without myelopathy or radiculopathy, lumbar region (principal); M51.36 Other intervertebral disc degeneration, lumbar region; M51.37 Other intervertebral disc degeneration, lumbosacral region; M47.817 Spondylosis without myelopathy or radiculopathy, lumbosacral region

== ENCOUNTER 2022-01-15 08:00 | Outpatient (CLI) | payer MEDICARE, MEDICAID ==
--- NOTE | 2022-01-15 16:01 | XRAY Report ---
PROCEDURE: Shoulder 3 View LT INDICATIONS: SHOULDER PX TECHNIQUE: 3 views of the shoulder were acquired. COMPARISON: None. FINDINGS: Bones: No fractures or dislocations. No suspicious bony lesions. Visualized ribs appear intact. M oderate acromioclavicular degenerative narrowing. Small humeral spur is noted at the acromioclavicula r joint space Soft tissues: No suspicious soft tissue calcifications. IMPRESSION: Arthritic changes as above. Reviewed by: Sally Rodriguez MD on 01/15/2022 3:59 PM PDT Approved by: Sally Rodriguez MD on 01/15/2022 3:59 PM PDT Station ID: [id number]
== END 2022-01-15 23:59 | disposition home or self-care (01) ==
LOC: DI 08:00
PROVIDERS: ATTEND Physician Assistant Surgical
DX: M19.012 Primary osteoarthritis, left shoulder (principal); M25.712 Osteophyte, left shoulder

== ENCOUNTER 2022-05-06 13:15 | Outpatient (CLI) | payer MEDICARE, MEDICAID ==
[~2022-05-06 13:15] MED LIST: TRIAMCINOLONE 40 MG/ML VIAL ONE; iohexoL-240 10 ML VIAL IVP ONE; lidocaine 1% 20 ML MDV ONE
[2022-05-06] MEDS ORDERED: TRIAMCINOLONE 40 MG/ML VIAL IM ONE (14:06)
[2022-05-06] MEDS ORDERED: iohexoL-240 10 ML VIAL IVP ONE (14:07)
[2022-05-06] MEDS ORDERED: lidocaine 1% 20 ML MDV SUBQ ONE (14:08)
--- NOTE | 2022-05-06 14:33 | XRAY Report ---
PROCEDURE: Inj/Aspiration Major Joint INDICATIONS: DJD LEFT SHOULDER CONTRAST: 2 cc Omnipaque 240 FLUORO DOSAGE: 34 mGy FLUORO TIME: 1.4 MIN TECHNIQUE: The indications, alternatives, benefits, risks, and complications of the procedure were explained to the patient. Written informed consent was obtained and placed in the chart. The patient was placed in an appropriate position on the fluoroscopy table, and a site was chosen for percutaneous access un jonah fluoroscopic guidance. Local anesthetic was administered using a 1% lidocaine solution. A hypod ermic or spinal needle was then used to access the symptomatic joint. Intra-articular location of th e needle tip was confirmed by injecting a small amount of contrast, followed by steroid administratio n. The needle was then withdrawn, and a bandage applied to the puncture site. FINDINGS: Joint injected: Left glenohumeral Medications injected: 1 mL of 40 mg/mL Kenalog and I cc 1% lidocaine. Complications: None IMPRESSION: Successful fluoroscopically guided administration of steroid and anaesthetic solution into the left g lenohumeral joint. Reviewed by: Jude Beltran MD on 05/06/2022 2:32 PM PST Approved by: Jude Beltran MD on 05/06/2022 2:32 PM PST Station ID: [id number]
== END 2022-05-06 13:16 | disposition home or self-care (01) ==
LOC: DI 13:15
PROVIDERS: ATTEND Physician Assistant Surgical
DX: M19.012 Primary osteoarthritis, left shoulder (principal)
CPT/HCPCS: 20610; 77002; Q9966

== ENCOUNTER 2022-09-17 12:59 | Outpatient (CLI) | payer MEDICARE, MEDICAID ==
--- NOTE | 2022-09-18 09:28 | Mammography Report ---
BILATERAL DIGITAL SCREENING MAMMOGRAM 3D/2D: 09/17/2022 CLINICAL: Routine screening. Comparison is made to exams dated: 10/24/2015 mammogram and 04/12/2011 mammogram - [facility]. There are scattered areas of fibroglandular density in both breasts (category b / 25%-50% glandular t issue). No significant masses, calcifications, or other findings are seen in either breast. There has been no significant interval change. IMPRESSION: NEGATIVE There is no mammographic evidence of malignancy. A 1 year screening mammogram is recommended. Based on the Tyrer Cuzick model (a risk assessment model) the patients lifetime risk is 5.2% and her 10 year risk is 2.5%. According to the ACR, ACS, and NCCN guidelines, an annual breast MRI exam dami g with mammogram is recommended if the patients lifetime risk is 20% or greater. This exam was interpreted at Station ID: [id number]. NOTE: For mammograms, a report in lay terms will be sent to the patient. Approximately 15% of breast malignancies will not be visualized mammographically. In the management of a palpable breast mass, a negative mammogram must not discourage biopsy of a clinically suspicious lesion. Electronically Signed By: Hien [email or web address]/huy:09/17/2022 17:09:34 letter sent: No_Letter ACR BI-RADS Category 1: Negative 3341F PARENCHYMAL PATTERN: (A) - The breast(s) demonstrate(s) scattered fibroglandular densities. BI-RADS CATEGORY: (1) - 1 Mammogram [id number] 1 year screening LATERALITY: (B)
== END 2022-09-17 13:00 | disposition home or self-care (01) ==
LOC: DI.S 12:59
DX: Z12.31 Encounter for screening mammogram for malignant neoplasm of breast (principal)

== ENCOUNTER 2022-10-02 12:26 | Outpatient (CLI) | payer MEDICARE, MEDICAID ==
[2022-10-02 14:28] LABS: BASOPHILS # (AUTO) 0.1 10^3/uL (0.0-0.1); BASOPHILS % (AUTO) 1.1 %; EOSINOPHILS # (AUTO) 0.5 10^3/uL (0.0-0.7); EOSINOPHILS % (AUTO) 7.4 %; HCT - HEMATOCRIT 35.5 % (37.0-47.0); HGB - HEMOGLOBIN 10.5 g/dL (12.0-16.0); LYMPHOCYTES # (AUTO) 2.7 10^3/uL (1.5-3.5); LYMPHOCYTES % (AUTO) 37.3 %; MEAN CORPUSCULAR HEMOGLOBIN 24.1 pg (27.0-31.0); MEAN CORPUSCULAR HGB CONC 29.6 g/dL (32.0-36.0); MEAN CORPUSCULAR VOLUME 81.4 fL (81.0-99.0); MEAN PLATELET VOLUME 13.3 fL (7.9-10.8); MONOCYTES # (AUTO) 0.5 10^3/uL (0.0-1.0); MONOCYTES % (AUTO) 6.9 %; NEUTROPHILS # (AUTO) 3.4 10^3/uL (1.5-6.6); NEUTROPHILS % (AUTO) 46.9 %; PLT - PLATELET COUNT 236 10^3/uL (130-450); RED BLOOD COUNT 4.36 10^6/uL (4.20-5.40); RED CELL DISTRIBUTION WIDTH 15.2 % (12.0-15.0); WHITE BLOOD COUNT 7.3 x10^3/uL (4.8-10.8)
[2022-10-02 15:24] LABS: ALBUMIN 3.8 g/dL (3.2-5.5); ALBUMIN/GLOBULIN RATIO 1.3 (1.0-2.2); ALKALINE PHOSPHATASE 68 IU/L (42-121); ALT ALANINE AMINOTRANSFERASE 52 IU/L (10-60); AST ASPARTATE AMINOTRANSFERASE 48 IU/L (10-42); BILIRUBIN,TOTAL 0.4 mg/dL (0.2-1.0); BUN - BLOOD UREA NITROGEN 19 mg/dL (6-20); CARBON DIOXIDE - CO2 29 mmol/L (21-32); CHLORIDE 104 mmol/L (101-111); CHOL/HDL RATIO 8.9 (<4.4); CHOLESTEROL 250 mg/dL; GFR - MDRD 56 (>89); GLUCOSE 115 mg/dL (70-100); HDL CHOLESTEROL 28 mg/dL; LDL CHOLESTEROL,CALCULATED 147 mg/dL; LDL/HDL RATIO 5.3 (<4.4); POTASSIUM 4.1 mmol/L (3.5-5.0); SODIUM 138 mmol/L (135-145); TOTAL PROTEIN 6.7 g/dL (6.7-8.2); TRIGLYCERIDES 373 mg/dL; VLDL CHOLESTEROL 75 mg/dL
[2022-10-02 15:32] LABS: THYROID STIMULATING HORMONE 2.8 uIU/mL (0.34-5.60)
== END 2022-10-02 12:27 | disposition home or self-care (01) ==
LOC: LAB.S 12:26
PROVIDERS: ATTEND Registered Nurse
DX: Z79.899 Other long term (current) drug therapy (principal); Z13.220 Encounter for screening for lipoid disorders; Z13.29 Encounter for screening for other suspected endocrine disorder
CPT/HCPCS: 36415; 80053; 80061; 83721; 84443; 85025

== ENCOUNTER 2023-01-04 14:52 | Outpatient (CLI) | payer MEDICARE, MEDICAID | END 2023-01-04 14:53 | disposition EMS.NT | LOC: EMS 14:52 | DX: Z03.89 Encounter for observation for other suspected diseases and conditions ruled out (principal) ==

== ENCOUNTER 2023-01-05 11:48 | Outpatient (CLI) | payer MEDICARE, MEDICAID | END 2023-01-05 23:59 | disposition left against medical advice (07) | LOC: EMS 11:48 | DX: R53.1 Weakness (principal); R63.8 Other symptoms and signs concerning food and fluid intake; R23.8 Other skin changes ==

== ENCOUNTER 2023-01-05 15:25 | Inpatient (IN) | payer MEDICARE, MEDICAID ==
--- NOTE | 2023-01-05 15:58 | ED Physician Documentation ---
History of Present Illness - Stated complaint Stated Complaint: GLF - Chief complaint Chief Complaint: General - Additonal information Additional information: 67-year-old female who has a past medical history most significant for asthma and GERD presents to the emergency department for evaluation of syncope and confusion. Reportedly over the last 24 hours she has had 2 falls at home. She does not remember falling and thinks that she fainted. EMS has been out to her house twice but twice she refused transport. This morning she notified her family that she had fallen in the bathroom and family members found her in the bathroom on the floor. On presentation to the emergency department she appears quite disheveled. She is having a large volume of diarrhea. She also has large areas of abrasion and blistering on her left arm and left leg. She at this time her Son reports that she seems confused though she is able to answer person place, date and time correctly. She also has no focal deficits. Review of Systems Unable to obtain: Confused Skin: reports: Abrasion (s) Neurologic: reports: Syncope, Confused. denies: Headache, Head injury PD PAST MEDICAL HISTORY - Past Medical History Cardiovascular: Hypertension Respiratory: Asthma, Shortness of breath Endocrine/Autoimmune: None GI: GERD, Chronic constipation COLD ROLL CATCHER: None : Incontinence, Frequency HEENT: None Psych: Anxiety, Panic attacks Musculoskeletal: None Derm: None - Past Surgical History Past Surgical History: Yes General: Appendectomy Ortho: Hip replacement - Present Medications Home Medications: Ambulatory Orders Medication Instructions Recorded Confirmed Loratadine [Claritin] 10 mg PO DAILY 02/01/13 10/21/17 Oxybutynin [Ditropan] 5 mg PO BID 02/01/13 10/21/17 Ranitidine HCl 75 mg PO DAILY 02/01/13 10/21/17 Ipratropium/Albuterol [Duoneb] 3 ml INH BID #1 08/31/15 10/21/17 Albuterol Sulfate [Proair 1 puffs INH DAILY 11/09/15 10/21/17 Respiclick] Esomeprazole Magnesium [Nexium] 20 mg PO DAILY 11/09/15 10/21/17 Senna [Senokot] 1 tab PO DAILY PRN 11/09/15 10/21/17 Clindamycin HCl [Clindamycin 300MG 300 mg PO TID #21 capsule 05/28/18 CAP] Ondansetron Odt [Zofran] 4 mg TL Q6H PRN #10 tablet 05/28/18 Oxycodone HCl/Acetaminophen 1 each PO Q6H PRN #15 tablet 05/28/18 [Percocet 5-325 mg Tablet] Hydrocortisone Acetate [Anucort-Hc] 25 mg RC DAILY #5 supp.rect 09/22/18 - Allergies Allergies/Adverse Reactions: Allergies Allergy/AdvReac Type Severity Reaction Status Date / Time morphine Allergy Severe Rash Verified 05/28/18 08:46 Penicillins Allergy Intermediate Rash Verified 05/28/18 08:46 - Social History Does the pt smoke?: No Smoking Status: Never smoker Does the pt drink ETOH?: No Does the pt have substance abuse?: No - Immunizations Immunizations are current?: No Immunizations: TDAP >10years/unknown - POLST Patient has POLST: No PD ED PE EXPANDED - General General: Alert, Other (Disheveled, poor hygiene) - Cardiac Cardiac: Regular Rate, Radial strong equal, Pedal strong equal, Cap refill < 2 sec. No: Murmur Present - Respiratory Respiratory: Clear to ausultation karen. No: Distress, Labored - Abdomen Abdomen: Normal Bowel sounds, Distended. No: Tender to palpation - Derm Derm: Other (Large areas of abrasion and blistering on the left forearm left lateral thigh and hip) - Neuro Neuro: Alert and Oriented X 3, CNII-XII intact - GCS Eye Opening: Spontaneous Motor: Obeys Commands Verbal: Oriented Total: 15 Results - Vitals Vitals: Vital Signs - 24 hr 01/05/23 01/05/23 01/05/23 15:33 18:07 18:41 Temperature 36.4 C L 36.4 C L Heart Rate 108 H 100 99 Respiratory 22 16 20 Rate Blood Pressure 108/50 L 124/103 H 156/70 H O2 Saturation 96 100 100 Oxygen O2 Source Room air - EKG (time done) 1650 EKG releavant findings:: EKG personally interpreted by author of this note. Relevant findings are: Rate: Rate (enter#) (107) Rhythm: Sinus tachycardia [place]: Normal Intervals: Normal [place] QRS: Normal Ischemia: Non specific changes Compare to prior EKG: Old EKG unavailable Computer interpretation: Agree with computer - Labs Labs: Microbiology 01/05/23 16:30 Occult Blood - Final Stool Laboratory Tests 01/05/23 01/05/23 01/05/23 16:13 16:13 16:13 WBC 22.3 H RBC 4.00 L Hgb 10.2 L Hct 32.8 L MCV 82.0 MCH 25.5 L MCHC 31.1 L RDW 17.4 H Plt Count 245 MPV 13.1 H Neut # (Auto) Not Reportable Lymph # (Auto) Not Reportable [place] # (Auto) Not Reportable Eos # (Auto) Not Reportable Baso # (Auto) Not Reportable Absolute Nucleated RBC Not Reportable Total Counted 100 Band Neuts % (Manual) 3 Abnorm Lymph % (Manual) 0 Nucleated RBC % Not Reportable Neutrophils # (Manual) 19.2 H Lymphocytes # (Manual) 1.6 Monocytes # (Manual) 1.3 H Eosinophils # (Manual) 0.2 Basophils # (Manual) 0.0 Differential Comment MANUAL DIFFERENTIAL Platelet Estimate NORMAL (130-450,000) Platelet Morphology NORMAL APPEARANCE RBC Morph Micro Appear NORMAL APPEARANCE Sodium 140 Potassium 4.1 Chloride 107 Carbon Dioxide 23 Anion Gap 10.0 BUN 48 H Creatinine 3.3 H Estimated GFR (MDRD) 14 L Glucose 205 H Lactic Acid Calcium 10.5 H Total Bilirubin 0.7 AST 273 H ALT 112 H Alkaline Phosphatase 73 B-Natriuretic Peptide 34 Total Protein 7.2 Albumin 3.9 Globulin 3.3 Albumin/Globulin Ratio 1.2 Lipase 20 L Urine Color Urine Clarity Urine pH Ur Specific [place] Urine Protein Urine Glucose (UA) Urine Ketones Urine Occult Blood Urine Nitrite Urine Bilirubin Urine Urobilinogen Ur Leukocyte Esterase Urine RBC Urine WBC Ur Squamous Epith Cells Amorphous Sediment Urine Bacteria Urine Casts Ur Microscopic Review Urine Culture Comments Stl C. diff Tox B Gene 01/05/23 01/05/23 01/05/23 16:38 16:43 17:23 WBC RBC Hgb Hct MCV MCH MCHC RDW Plt Count MPV Neut # (Auto) Lymph # (Auto) [place] # (Auto) Eos # (Auto) Baso # (Auto) Absolute Nucleated RBC Total Counted Band Neuts % (Manual) Abnorm Lymph % (Manual) Nucleated RBC % Neutrophils # (Manual) Lymphocytes # (Manual) Monocytes # (Manual) Eosinophils # (Manual) Basophils # (Manual) Differential Comment Platelet Estimate Platelet Morphology RBC Morph Micro Appear Sodium Potassium Chloride Carbon Dioxide Anion Gap BUN Creatinine Estimated GFR (MDRD) Glucose Lactic Acid 1.4 Calcium Total Bilirubin AST ALT Alkaline Phosphatase B-Natriuretic Peptide Total Protein Albumin Globulin Albumin/Globulin Ratio Lipase Urine Color YELLOW Urine Clarity CLOUDY Urine pH 5.0 Ur Specific [place] >=1.030 H Urine Protein 100 H Urine Glucose (UA) NEGATIVE Urine Ketones 15 H Urine Occult Blood LARGE H Urine Nitrite POSITIVE H Urine Bilirubin NEGATIVE Urine Urobilinogen 0.2 (NORMAL) Ur Leukocyte Esterase NEGATIVE Urine RBC 6-10 H Urine WBC 6-10 H Ur Squamous Epith Cells FEW Squamous Amorphous Sediment Few Urine Bacteria Many H Urine Casts 6-10 Fine Granular Ur Microscopic Review INDICATED Urine Culture Comments INDICATED Stl C. diff Tox B Gene NEGATIVE - Rads (name of study) Ct head Relevant Findings:: Final report received (No acute intracranial abnormality. Microvascular scheming disease and age-related cerebral volume loss.) Ct abd wo Relevant Findings:: Final report received (No hydronephrosis or obstructing renal stone) PD Medical Decision Making - ED course Complexity details: reviewed results, re-evaluated patient, d/w patient ED course: 67-year-old female presents emergency department for evaluation of 2 syncopal episodes over the last 24 hours. She is also been having some diarrhea. When she is fallen she has bumped her left arm and left leg against the wall and now has some bruising and blistering. On presentation to the emergency department she was alert oriented and talkative as well as ambulatory but was having a large volume of diarrhea. She appeared very disheveled and with poor hygiene. She was difficult to understand that she is a dentulous. Initially her vital signs showed no fever, tachycardia or hypotension. We did obtain CBC, electrolytes and urinalysis. CBC shows marked leukocytosis white count of 22,000. LFTs also show acute kidney injury with an elevated BUN of 48 and creatinine of 3.8. Most recent labs several years ago however showed normal renal function. She does have some elevated AST ALT. No abdominal tenderness was elicited on exam. An in and out urine Alysis showed that the patient does have acute cystitis. Blood cultures are pending. C. difficile was negative. We did obtain a CT of the head that showed no acute intracranial findings and a noncontrast CT of the belly was also without obvious findings. Clinically the patient presents as septic with a urinary tract infection and leukocytosis though she is not in shock. Patient was administered 2 L of IV fluids here in the immediate emergency department as well as a gram of ceftriaxone for her urinary tract infection I attempted to contact the admitting hospitalist at 1645 several times but the phone call was never returned as such we contacted the nighttime telehospitalist at 1900 Dr. Colon who graciously agrees to admit the patient for further evaluation and management of her sepsis - Sepsis Event Sepsis Onset Date: 01/05/23 Sepsis Onset Time: 16:15 Current Stage of Sepsis: Sepsis Initial Hypotension: Not hypotensive Possible source of Sepsis: Genitourinary Mental/Cognitive Status: Alert/Oriented X3 Reason for not giving 30ml/kg crystalloid fluids: Not in septic shock Capillary refill: Less than 2 seconds Peripheral Pulse Strength: 2+ Slightly Diminished Peripheral Pulse Location: Pedal Bedside ultrasound performed: No Departure - Departure Disposition: 67 [facility] DC/Xfer Clinical Impression: Acute kidney injury, Encephalopathy, LFTs abnormal Diarrhea Qualifiers: Diarrhea type: unspecified type Qualified Code(s): R19.7 - Diarrhea, unspecified Leukocytosis Qualifiers: Leukocytosis type: unspecified Qualified Code(s): D72.829 - Elevated white blood cell count, unspecified Sepsis Qualifiers: Sepsis type: sepsis due to unspecified organism Sepsis acute organ dysfunction status: with acute organ dysfunction Severe sepsis acute organ dysfunction type: acute renal failure Acute renal failure type: unspecified Severe sepsis shock status: without septic shock Qualified Code(s): A41.9 - Sepsis, unspecified organism UTI (urinary tract infection) Qualifiers: Urinary tract infection type: site unspecified Hematuria presence: without hematuria Qualified Code(s): N39.0 - Urinary tract infection, site not specified Condition: Poor
[2023-01-05] MEDS ORDERED: SODIUM CHLORIDE 0.9% 1,000 ML IV STA ×2 (16:01→17:06)
[2023-01-05 16:22] LABS: BASOPHILS % (AUTO) 0.4 %; EOSINOPHILS % (AUTO) 0.3 %; HCT - HEMATOCRIT 32.8 % (37.0-47.0); HGB - HEMOGLOBIN 10.2 g/dL (12.0-16.0); LYMPHOCYTES % (AUTO) 11.1 %; MEAN CORPUSCULAR HEMOGLOBIN 25.5 pg (27.0-31.0); MEAN CORPUSCULAR HGB CONC 31.1 g/dL (32.0-36.0); MEAN PLATELET VOLUME 13.1 fL (7.9-10.8); MONOCYTES % (AUTO) 6.1 %; NEUTROPHILS % (AUTO) 81.6 %; PLT - PLATELET COUNT 245 10^3/uL (130-450); RED CELL DISTRIBUTION WIDTH 17.4 % (12.0-15.0); WHITE BLOOD COUNT 22.3 x10^3/uL (4.8-10.8)
[2023-01-05 16:23] LABS: ABNORMAL LYMPHS % (MANUAL) 0 %
--- OUTSIDE RECORDS SUMMARY | 2023-01-05 16:23 | EXTERNAL MEDICAL SUMMARY RPT | Continuity of Care Document ---
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 Name Role Phone Jaylene Mishra Unavailable Unavailable Allergies and Intolerances date description facility type (no date) [facility] (unknown) Medications date description facility 2022-10-16 00:00 Omeprazole [facility] 2022-10-16 00:00 Acetaminophen [facility] 2022-10-16 00:00 Albuterol Sulfate [facility] 2022-10-16 00:00 Loratadine [facility] 2022-10-16 00:00 Methylprednisolone [facility] 2022-11-18 00:00 Cyclobenzaprine [facility] 2022-10-16 00:00 Diclofenac Sodium [facility] 2022-10-16 00:00 Amitriptyline [facility] 2022-10-16 00:00 Metoprolol Succinate [facility] Problems date description facility 2022-10-15 15:15 Primary osteoarthritis, left [facility] 2022-10-16 00:00 Lumbar [facility]iculopathy [facility] 2022-10-16 00:00 Low back pain [facility] 2022-10-24 10:11 Radiculopathy, lumbar region Is [facility] 2022-10-24 10:23 Radiculopathy, lumbar region Is [facility] 2022-10-28 14:08 Other chronic pain [facility] 2022-10-28 14:08 Radiculopathy, lumbar region Is [facility] 2022-10-28 14:08 Lumbago with sciatica, left jey e [facility] 2022-11-18 00:00 Spinal stenosis of l umbar region with neurogenic claudication [facility] 2022-12-04 09:31 Spinal stenosis, lum bar region with neurogenic claudication [facility] 2022-12-04 09:31 Radiculopathy, lumbar region Is [facility] 2022-12-04 10:00 Spinal stenosis, lum bar region with neurogenic claudication [facility] 2022-12-04 10:00 Radiculopathy, lumbar region Is [facility] Results/Labs test date author facility value unit interpretation Result panel 1 (unknown) (no date) (unknown) (unknown) (no value) (units unknown) (unknown) (unknown) (no date) (unknown) (unknown) (0=absent, 1=s light response, 2=brisk/normal, 3=very brisk, 4=clonus) (units unknown) (unknown) (unknown) (no date) (unknown) (unknown) (segments are from the International Standards for Neurological Classification (units unknown) (unknown) (unknown) (no date) (unknown) (unknown) - Activity: Co ntinue activity as tolerated. [] (units unknown) (unknown) (unknown) (no date) (unknown) (unknown) - Chiropractor , acupuncture[] (units unknown) (unknown) (unknown) (no date) (unknown) (unknown) - Continues cl inician directed home exercise program including exercises learned (units unknown) (unknown) (unknown) (no date) (unknown) (unknown) - Education: C auda equina and associated symptoms, including motor weakness, (units unknown) (unknown) (unknown) (no date) (unknown) (unknown) - FADIR: [(-/+ ) on the R side / L side / bilaterally] (units unknown) (unknown) (unknown) (no date) (unknown) (unknown) - Follow-up: [] (uni ts unknown) (unknown) (unknown) (no date) (unknown) (unknown) - Hip ROM is: [WNL / limited and painful on the R sided / L side / bilaterally] (units unknown) (unknown) (unknown) (no date) (unknown) (unknown) - I discussed risks, benefits and side effects. Additionally, patient was (units unknown) (unknown) (unknown) (no date) (unknown) (unknown) - Imaging: No new imaging indicated at this time. [] (units unknown) (unknown) (unknown) (no date) (unknown) (unknown) - Interventional/Surgica l procedures: None indicated at this time. [] (units unknown) (unknown) (unknown) (no date) (unknown) (unknown) - Lumbar facet loading: [(-/+) on the R side / L side / bilaterally] (units unknown) (unknown) (unknown) (no date) (unknown) (unknown) - Medications: No new prescription at this time. Patient will continue current (units unknown) (unknown) (unknown) (no date) (unknown) (unknown) - Medications: acetaminophen, NSAIDS, neuropathics, muscle relaxants [] (units unknown) (unknown) (unknown) (no date) (unknown) (unknown) - Physical The rapy: Completed 6 week course in the last 6 months OR Patient (units unknown) (unknown) (unknown) (no date) (unknown) (unknown) - Physical therapy/modalities/DME : Patient will likely benefit from physical (units unknown) (unknown) (unknown) (no date) (unknown) (unknown) - Prescription provided and uptitration instructions given if necessary. [] (units unknown) (unknown) (unknown) (no date) (unknown) (unknown) - Previous [] on [] provided []% relief of pain for the expected duration of the (units unknown) (unknown) (unknown) (no date) (unknown) (unknown) - Referrals: N one indicated at this time. [] (units unknown) (unknown) (unknown) (no date) (unknown) (unknown) - SIJ provocat ion testing: [ (+/-) Kristen's finger test, posterior thrust, (units unknown) (unknown) (unknown) (no date) (unknown) (unknown) - Straight Leg Raise: [(-/+) on the L side / R side / bilaterally] (units unknown) (unknown) (unknown) (no date) (unknown) (unknown) [id number] (units unknown) (unknown) (unknown) (no date) (unknown) (unknown) 10/04/22 (units unknown) (unknown) (unknown) (no date) (unknown) (unknown) 1.?Multilevel? degenera tive?disc?and?facet?di sease,?as?well?as?liga mentum?flavum? (units unknown) (unknown) (unknown) (no date) (unknown) (unknown) 1.Limited?rang e?of?mot ion?and?multilevel?lum bar?spine?spondylosis, ?most?notably? (units unknown) (unknown) (unknown) (no date) (unknown) (unknown) 15:37??? (units unknown) (unknown) (unknown) (no date) (unknown) (unknown) 2.?Multilevel? canal?st enoses,?worst?at?L4-L5 ?where?there?is?severe ?canal?stenosi (units unknown) (unknown) (unknown) (no date) (unknown) (unknown) ,?14:34. (uni ts unknown) (unknown) (unknown) (no date) (unknown) (unknown) 3.?Multilevel? foramina l?stenoses,?worst?at?L 5-S1?where?there?is?as sociated?intra (units unknown) (unknown) (unknown) (no date) (unknown) (unknown) 4.??Left?iliop soas?mus ronald?atrophy.?? (units unknown) (unknown) (unknown) (no date) (unknown) (unknown) ? Inspection - ? No gross appendicular or axial deformities (units unknown) (unknown) (unknown) (no date) (unknown) (unknown) ? Palpation -? [Tender to palpation of / No tenderness to palpation] (units unknown) (unknown) (unknown) (no date) (unknown) (unknown) ? ROM - [Lumba r flexion/ extension/ lateral rotation is limited due to pain / (units unknown) (unknown) (unknown) (no date) (unknown) (unknown) ? Special tests (uni ts unknown) (unknown) (unknown) (no date) (unknown) (unknown) ?09/20/2022?at?15:01 (units unknown) (unknown) (unknown) (no date) (unknown) (unknown) ??5?lumbar?typ e?verteb ral?bodies?are?present ?by?plain?film.??There ?is?loss?of?no (units unknown) (unknown) (unknown) (no date) (unknown) (unknown) ??5?nonrib-viviana ring?bre tebrae?are?present.??3 ?mm?retrolisthesis?L2- L3,?L3-L4?and? (units unknown) (unknown) (unknown) (no date) (unknown) (unknown) ??5?views?of?t he?lumba r?spine?acquired,?incl uding?flexion?and?exte nsion?views.? (units unknown) (unknown) (unknown) (no date) (unknown) (unknown) ? Acetaminophen (units unknown) (unknown) (unknown) (no date) (unknown) (unknown) ? Antidepressants (units unknown) (unknown) (unknown) (no date) (unknown) (unknown) ? Antiepileptics (units unknown) (unknown) (unknown) (no date) (unknown) (unknown) ? Mu scle Relaxants (units unknown) (unknown) (unknown) (no date) (unknown) (unknown) ? NSAIDs ( units unknown) (unknown) (unknown) (no date) (unknown) (unknown) ? Opioids (units unknown) (unknown) (unknown) (no date) (unknown) (unknown) ? Steroids (units unknown) (unknown) (unknown) (no date) (unknown) (unknown) ? Topicals (units unknown) (unknown) (unknown) (no date) (unknown) (unknown) ???Transcribed?by:?J C (units unknown) (unknown) (unknown) (no date) (unknown) (unknown) ??Conus?medull cade?ter minates?at?the?lower?L 1?level.??Visualized?c ord?demonstrat (units unknown) (unknown) (unknown) (no date) (unknown) (unknown) ??Marrow?is?of ?normal? overall?signal.??No?ac [place]?vertebral?body?com pression?fract (units unknown) (unknown) (unknown) (no date) (unknown) (unknown) ??Moderate?dis c?desicc ation.??Mild?disc?heig ht?loss?and?diffuse?di sc?bulge.??Mil (units unknown) (unknown) (unknown) (no date) (unknown) (unknown) ??Moderate?dis c?desicc ation.??Mild?disc?heig ht?loss?and?diffuse?di sc?bulge.??Mod (units unknown) (unknown) (unknown) (no date) (unknown) (unknown) ??Moderate?dis c?height ?loss?and?desiccation. ??Mild?diffuse?disc?bu lge.??Mild?fac (units unknown) (unknown) (unknown) (no date) (unknown) (unknown) ??Moderate?dis c?height ?loss?and?desiccation. ??No?significant?canal ,?or?foraminal (units unknown) (unknown) (unknown) (no date) (unknown) (unknown) ??No?paraverte bral?mas ses.??There?is?asymmet david?left?ileo?psoas?at rophy. (units unknown) (unknown) (unknown) (no date) (unknown) (unknown) ??Overlying?israel wel?gas? pattern?is?normal.??No ?suspicious?soft?tissu e?calcificatio (units unknown) (unknown) (unknown) (no date) (unknown) (unknown) ??[facility],?CR,?XR?LUMBAR?SPIN E?WITH?FLEXION?EXTENSI ON?5?VIEWS,?1/ (units unknown) (unknown) (unknown) (no date) (unknown) (unknown) ??There?is?sanchez ited?ran ge?of?motion,?with?pre served?normal?alignmen t.?? (units unknown) (unknown) (unknown) (no date) (unknown) (unknown) ?at?the?L5-S1? level.?? Moderate?facet?petros (units unknown) (unknown) (unknown) (no date) (unknown) (unknown) ?canal?stenosi s.??Mode rate?bilateral?foramin al?stenosis. (units unknown) (unknown) (unknown) (no date) (unknown) (unknown) ?stenosis. (units unknown) (unknown) (unknown) (no date) (unknown) (unknown) ?subarticular? foramina l?stenosis?bilaterally . (units unknown) (unknown) (unknown) (no date) (unknown) (unknown) Age/Sex: 67 / F Date of Service: (units unknown) (unknown) (unknown) (no date) (unknown) (unknown) Aggravating fa ctors include: (units unknown) (unknown) (unknown) (no date) (unknown) (unknown) Alignment?and? [place]: (units unknown) (unknown) (unknown) (no date) (unknown) (unknown) All other syst ems reviewed and are unremarkable except as noted in HPI. (units unknown) (unknown) (unknown) (no date) (unknown) (unknown) Allergies (units unknown) (unknown) (unknown) (no date) (unknown) (unknown) Amitriptyline 10 mg (units unknown) (unknown) (unknown) (no date) (unknown) (unknown) [place] [address] (units unknown) (unknown) (unknown) (no date) (unknown) (unknown) Assessment + Plan (u nits unknown) (unknown) (unknown) (no date) (unknown) (unknown) Assessment: (units unknown) (unknown) (unknown) (no date) (unknown) (unknown) Attending Dr: Robin Morel MD (units unknown) (unknown) (unknown) (no date) (unknown) (unknown) Erika's Caitlin ngoing Downgoing (units unknown) (unknown) (unknown) (no date) (unknown) (unknown) Bilateral?hip? arthropl asties?incompletely?vi sualized. (units unknown) (unknown) (unknown) (no date) (unknown) (unknown) Bone?Marrow: (units unknown) (unknown) (unknown) (no date) (unknown) (unknown) Bones: (units unknown) (unknown) (unknown) (no date) (unknown) (unknown) Bowel and blad jonah: No loss of control (units unknown) (unknown) (unknown) (no date) (unknown) (unknown) COMPARISON: (units unknown) (unknown) (unknown) (no date) (unknown) (unknown) COMPARISON:??None. ( units unknown) (unknown) (unknown) (no date) (unknown) (unknown) Cardiovascular : No edema or cyanosis. 2+ peripheral pulses (units unknown) (unknown) (unknown) (no date) (unknown) (unknown) Chart review: (units unknown) (unknown) (unknown) (no date) (unknown) (unknown) Judi is a 67-year-old female with a history of [PMH] who presents for further (units unknown) (unknown) (unknown) (no date) (unknown) (unknown) Chief Complaint (uni ts unknown) (unknown) (unknown) (no date) (unknown) (unknown) Chief Complain t: Low back and leg pain (units unknown) (unknown) (unknown) (no date) (unknown) (unknown) Clonus None None (un its unknown) (unknown) (unknown) (no date) (unknown) (unknown) Conservative management includes: (units unknown) (unknown) (unknown) (no date) (unknown) (unknown) Continue [facility] physical therapy. [] (units unknown) (unknown) (unknown) (no date) (unknown) (unknown) Continue home exercise program. [] (units unknown) (unknown) (unknown) (no date) (unknown) (unknown) : 7 Acct:[id number] (units unknown) (unknown) (unknown) (no date) (unknown) (unknown) Denies recent trauma, fever or weight loss of unknown origin, immunocompromise (units unknown) (unknown) (unknown) (no date) (unknown) (unknown) Dept at . (units unknown) (unknown) (unknown) (no date) (unknown) (unknown) Details: (units unknown) (unknown) (unknown) (no date) (unknown) (unknown) Diclofenac 75 mg (un its unknown) (unknown) (unknown) (no date) (unknown) (unknown) Documented By: Robin Morel MD 10/15/22 1511 (units unknown) (unknown) (unknown) (no date) (unknown) (unknown) Draft (units unknown) (unknown) (unknown) (no date) (unknown) (unknown) Exam Narrative (unit s unknown) (unknown) (unknown) (no date) (unknown) (unknown) Exam Narrative: (uni ts unknown) (unknown) (unknown) (no date) (unknown) (unknown) Exam (units unknown) (unknown) (unknown) (no date) (unknown) (unknown) Fay MUHAMMAD n's, Pelvic rocking on the R/L side / bilaterally] (units unknown) (unknown) (unknown) (no date) (unknown) (unknown) FINDINGS:?? (units unknown) (unknown) (unknown) (no date) (unknown) (unknown) Flexion/extension: ( units unknown) (unknown) (unknown) (no date) (unknown) (unknown) Gait/Station - [Non-antalgic gait. Heel (L5 strength) and toe (S1 strength) (units unknown) (unknown) (unknown) (no date) (unknown) (unknown) General: Well-nourished, well-developed, [sex] in no acute distress (units unknown) (unknown) (unknown) (no date) (unknown) (unknown) HPI (units unknown) (unknown) (unknown) (no date) (unknown) (unknown) IMPRESSION:?? (units unknown) (unknown) (unknown) (no date) (unknown) (unknown) INDICATIONS:?? lumbar?p ain (units unknown) (unknown) (unknown) (no date) (unknown) (unknown) INDICATIONS:??pain ( units unknown) (unknown) (unknown) (no date) (unknown) (unknown) Image?quality: ??Excell ent.?? (units unknown) (unknown) (unknown) (no date) (unknown) (unknown) Injections: (units unknown) (unknown) (unknown) (no date) (unknown) (unknown) Intake (units unknown) (unknown) (unknown) (no date) (unknown) (unknown) Intervention: Date: Outcome: (units unknown) (unknown) (unknown) (no date) (unknown) (unknown) JUSTIFICATION OF MEDICAL NECESSITY (units unknown) (unknown) (unknown) (no date) (unknown) (unknown) L-spine/T-spin e/C-spin e MRI ordered to better delineate the anatomy and help (units unknown) (unknown) (unknown) (no date) (unknown) (unknown) L1-L2: (units unknown) (unknown) (unknown) (no date) (unknown) (unknown) L2 Hip Flexion 5/5 5/5? (units unknown) (unknown) (unknown) (no date) (unknown) (unknown) L2-L3: (units unknown) (unknown) (unknown) (no date) (unknown) (unknown) L3 Knee Extens ion 5/5 5/5 (units unknown) (unknown) (unknown) (no date) (unknown) (unknown) L3-L4: (units unknown) (unknown) (unknown) (no date) (unknown) (unknown) L4 Ankle Dorsi flexion 5/5 5/5 (units unknown) (unknown) (unknown) (no date) (unknown) (unknown) L4 Patella 2+ 2 (uni ts unknown) (unknown) (unknown) (no date) (unknown) (unknown) L4-L5: (units unknown) (unknown) (unknown) (no date) (unknown) (unknown) L5 Long Toe Ex tension 5/ 5/5 (units unknown) (unknown) (unknown) (no date) (unknown) (unknown) L5-S1.??Multil evel?dis c?height?loss?with?end plate?sclerosis?and?sp urring,?severe (units unknown) (unknown) (unknown) (no date) (unknown) (unknown) L5-S1: (units unknown) (unknown) (unknown) (no date) (unknown) (unknown) Loc: PAIN (units unknown) (unknown) (unknown) (no date) (unknown) (unknown) Lyrica 150 mg (units unknown) (unknown) (unknown) (no date) (unknown) (unknown) MSK: System re viewed and no additional complaints, except as documented. (units unknown) (unknown) (unknown) (no date) (unknown) (unknown) Medications: (units unknown) (unknown) (unknown) (no date) (unknown) (unknown) Morphine Aller gy (Unknown, Uncoded 10/08/17 11:46) (units unknown) (unknown) (unknown) (no date) (unknown) (unknown) Motor (units unknown) (unknown) (unknown) (no date) (unknown) (unknown) Musculoskeletal: (un its unknown) (unknown) (unknown) (no date) (unknown) (unknown) Neuro: System reviewed and no additional complaints, except as documented. (units unknown) (unknown) (unknown) (no date) (unknown) (unknown) Neurologic: (units unknown) (unknown) (unknown) (no date) (unknown) (unknown) Noncontrast?sa gittal?T 1?spin?echo?and?T2?fas t?echo,?sagittal?STIR, ?and?T2?fast?s (units unknown) (unknown) (unknown) (no date) (unknown) (unknown) Not indicated at this time. 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 SPINE?WITHOUT?CONTRAST (units unknown) (unknown) (unknown) (no date) (unknown) (unknown) PROCEDURE:??XR ?LUMBAR? SPINE?WITH?FLEXION?EXT ENSION?5?VIEWS (units unknown) (unknown) (unknown) (no date) (unknown) (unknown) PT: Last PT wa s on []. [He/she] has attended for [sessions] (units unknown) (unknown) (unknown) (no date) (unknown) (unknown) Pain Visit (units unknown) (unknown) (unknown) (no date) (unknown) (unknown) Pain location/Radiation: (units unknown) (unknown) (unknown) (no date) (unknown) (unknown) Pain rating: / 10 today, /10 at worst (units unknown) (unknown) (unknown) (no date) (unknown) (unknown) Paraspinous?So ft?Tissu es: (units unknown) (unknown) (unknown) (no date) (unknown) (unknown) Patient will r eturn for []. Risks and benefits were discussed. (units unknown) (unknown) (unknown) (no date) (unknown) (unknown) Patient's pain has been present for >6 weeks and is an average of >6/10 on 0-10 (units unknown) (unknown) (unknown) (no date) (unknown) (unknown) Patient: Judi Aguilar MR#: [id number] (units unknown) (unknown) (unknown) (no date) (unknown) (unknown) Penicillins Al miangy (Verified 10/15/22 15:14) (units unknown) (unknown) (unknown) (no date) (unknown) (unknown) Pertinent medi cations include: (units unknown) (unknown) (unknown) (no date) (unknown) (unknown) Plan (units unknown) (unknown) (unknown) (no date) (unknown) (unknown) Plan/Recommendations : (units unknown) (unknown) (unknown) (no date) (unknown) (unknown) Prescriptions Written: [] (units unknown) (unknown) (unknown) (no date) (unknown) (unknown) Previous pain treatments included: (units unknown) (unknown) (unknown) (no date) (unknown) (unknown) Psych: Appropr iate affect, answers questions appropriately (units unknown) (unknown) (unknown) (no date) (unknown) (unknown) Quality and ti alirio of pain: (units unknown) (unknown) (unknown) (no date) (unknown) (unknown) LUISA?on?07/24?at ?14:50?Approved?by: ?Leonel?Luisa?Clayton?on ?07/24/2022?at? (units unknown) (unknown) (unknown) (no date) (unknown) (unknown) ROS Narrative (units unknown) (unknown) (unknown) (no date) (unknown) (unknown) ROS Narrative: (unit s unknown) (unknown) (unknown) (no date) (unknown) (unknown) ROS (units unknown) (unknown) (unknown) (no date) (unknown) (unknown) Reason For Visit (un its unknown) (unknown) (unknown) (no date) (unknown) (unknown) Red flag symptoms: ( units unknown) (unknown) (unknown) (no date) (unknown) (unknown) Reflex Right Left (u nits unknown) (unknown) (unknown) (no date) (unknown) (unknown) Reflexes: (units unknown) (unknown) (unknown) (no date) (unknown) (unknown) Relieving fact ors include: (units unknown) (unknown) (unknown) (no date) (unknown) (unknown) Respiratory: Non-labored breathing pattern on RA. No respiratory distress (units unknown) (unknown) (unknown) (no date) (unknown) (unknown) Reviewed?by:?J eff?Chof fel?RRA?Interpreted:?Luther pathakn?Luisa??on?07/24?at?14:49 (units unknown) (unknown) (unknown) (no date) (unknown) (unknown) Reviewed?by:?Johnathon lutz?Gonzalo yolanda,?M.D.?on?09/20/2022 ?at?14:57???Transcribe d?by:?CANNON?on (units unknown) (unknown) (unknown) (no date) (unknown) (unknown) S1 Achilles 2+ 2 (un its unknown) (unknown) (unknown) (no date) (unknown) (unknown) S1 Ankle Plantarflexion 5/5 5/5 (units unknown) (unknown) (unknown) (no date) (unknown) (unknown) Saddle anesthe kelby: denies (units unknown) (unknown) (unknown) (no date) (unknown) (unknown) Segment Action Right Left (units unknown) (unknown) (unknown) (no date) (unknown) (unknown) Segment Reflex Right Left (units unknown) (unknown) (unknown) (no date) (unknown) (unknown) Sensory -? Int act to light touch of bilateral lower extremities. Allodynia (units unknown) (unknown) (unknown) (no date) (unknown) (unknown) Signed By: (units unknown) (unknown) (unknown) (no date) (unknown) (unknown) Skin: No appre ciable rashes or skin breakdown (units unknown) (unknown) (unknown) (no date) (unknown) (unknown) Soft?tissues: (units unknown) (unknown) (unknown) (no date) (unknown) (unknown) Spinal?Cord: (units unknown) (unknown) (unknown) (no date) (unknown) (unknown) Standing: (units unknown) (unknown) (unknown) (no date) (unknown) (unknown) Surgery: Patie nt is s/p (units unknown) (unknown) (unknown) (no date) (unknown) (unknown) T12-L1: (units unknown) (unknown) (unknown) (no date) (unknown) (unknown) T2?fast?spin?e cho?may? be?performed.?? (units unknown) (unknown) (unknown) (no date) (unknown) (unknown) TECHNIQUE: (units unknown) (unknown) (unknown) (no date) (unknown) (unknown) TECHNIQUE:?? 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 (units unknown) (unknown) (unknown) (no date) (unknown) (unknown) We reviewed et iology, predisposing factor(s), natural course, imaging results as (units unknown) (unknown) (unknown) (no date) (unknown) (unknown) Weakness: denies (un its unknown) (unknown) (unknown) (no date) (unknown) (unknown) at?the?L5-S1?level. (units unknown) (unknown) (unknown) (no date) (unknown) (unknown) benefits of va rious treatment options were discussed with the patient in great (units unknown) (unknown) (unknown) (no date) (unknown) (unknown) bowel/bladder dysfunction, and perineal numbness were discussed. The patient was (units unknown) (unknown) (unknown) (no date) (unknown) (unknown) cannot tolerat e physical therapy at the current time due to the intensity of the (units unknown) (unknown) (unknown) (no date) (unknown) (unknown) d?facet?and?li gamentum ?flavum?hypertrophy.?? Mild?epidural?lipomato sis.??Moderate (units unknown) (unknown) (unknown) (no date) (unknown) (unknown) detail. (units unknown) (unknown) (unknown) (no date) (unknown) (unknown) enosis.??Mild? bilatera l?foraminal?stenosis. (units unknown) (unknown) (unknown) (no date) (unknown) (unknown) erate?facet?an d?ligame ntum?flavum?hypertroph y.??Severe?canal?steno sis.??Moderate (units unknown) (unknown) (unknown) (no date) (unknown) (unknown) es?normal?sign al?and?s ize.?? (units unknown) (unknown) (unknown) (no date) (unknown) (unknown) et?and?ligamen jolly?flav um?hypertrophy.??Mild? canal?stenosis.??Sever e?bilateral?fo (units unknown) (unknown) (unknown) (no date) (unknown) (unknown) et?and?ligamen jolly?flav um?hypertrophy.??Mild? epidural?lipomatosis.? ?Mild?canal?st (units unknown) (unknown) (unknown) (no date) (unknown) (unknown) et?and?ligamen jolly?flav um?hypertrophy.??Moder ate?canal?stenosis.??M ild?bi (units unknown) (unknown) (unknown) (no date) (unknown) (unknown) evaluation of low back and leg pain. (units unknown) (unknown) (unknown) (no date) (unknown) (unknown) foraminal?nerv e?root?c ompression.?Recommend? correlation?with?clini rashaad?symptoms?t (units unknown) (unknown) (unknown) (no date) (unknown) (unknown) have occurred. If there are any questions, please contact the Medical Records (units unknown) (unknown) (unknown) (no date) (unknown) (unknown) hypertrophy?an d?epidur al?lipomatosis. (units unknown) (unknown) (unknown) (no date) (unknown) (unknown) improved sleep , improved mobility, etc. (units unknown) (unknown) (unknown) (no date) (unknown) (unknown) in PT. [] (units unknown) (unknown) (unknown) (no date) (unknown) (unknown) instructed to report to the Emergency department, if these symptoms occur. (units unknown) (unknown) (unknown) (no date) (unknown) (unknown) instructed to stop if any side effects. [] (units unknown) (unknown) (unknown) (no date) (unknown) (unknown) intravenous dr ug use, sustained glucocorticoid use, osteoporosis, or a focal (units unknown) (unknown) (unknown) (no date) (unknown) (unknown) lateral?forami nal?sten osis. (units unknown) (unknown) (unknown) (no date) (unknown) (unknown) local anesthet ic. During that time patient able to participate in ADLs, had (units unknown) (unknown) (unknown) (no date) (unknown) (unknown) may occur. Occ asional wrong-word or 'sound-alike' substitutions may have (units unknown) (unknown) (unknown) (no date) (unknown) (unknown) meds. [] (units unknown) (unknown) (unknown) (no date) (unknown) (unknown) nd?L5?on?S1. (units unknown) (unknown) (unknown) (no date) (unknown) (unknown) negative, Hype ralgesia - negative (units unknown) (unknown) (unknown) (no date) (unknown) (unknown) neurological d eficit with progressive or disabling symptoms. (units unknown) (unknown) (unknown) (no date) (unknown) (unknown) ns.??Cholecyst ectomy?c lips. (units unknown) (unknown) (unknown) (no date) (unknown) (unknown) nt?arthropathy ?L4-L5?a nd?L5-S1.??No?vertebra l?body?compression?fra ctures.??No?jansen (units unknown) (unknown) (unknown) (no date) (unknown) (unknown) o?ascertain?re levance? of?this?finding.? (units unknown) (unknown) (unknown) (no date) (unknown) (unknown) occurred due t o the inherent limitations of voice recognition software. Please (units unknown) (unknown) (unknown) (no date) (unknown) (unknown) of Spinal Cord Injur y) (units unknown) (unknown) (unknown) (no date) (unknown) (unknown) or immunosuppr essive therapy, previous or current cancer diagnosis, history of (units unknown) (unknown) (unknown) (no date) (unknown) (unknown) pain. [] (units unknown) (unknown) (unknown) (no date) (unknown) (unknown) pin?echo?throu gh?the?l umbar?spine.??In?cases ?with?scoliosis,?addit ional?coronal? (units unknown) (unknown) (unknown) (no date) (unknown) (unknown) racic?spine. (units unknown) (unknown) (unknown) (no date) (unknown) (unknown) raminal?stenos is?with? bilateral?L5?nerve?ghanshyam t?compression. (units unknown) (unknown) (unknown) (no date) (unknown) (unknown) read the note carefully and recognize, using context, where these substitutions (units unknown) (unknown) (unknown) (no date) (unknown) (unknown) record, includ ing relevant provider notes, laboratory work, and imaging. (units unknown) (unknown) (unknown) (no date) (unknown) (unknown) rmal?lumbar?lo rdosis.? ?3?mm?of?retrolisthesi s?of?L1?on?L2,?L2?on?L 3,?L3?on?L4,?a (units unknown) (unknown) (unknown) (no date) (unknown) (unknown) s.??Moderate?c anal?james nosis?at?L2-L3?and?L3- L4. (units unknown) (unknown) (unknown) (no date) (unknown) (unknown) scale and/or p ain interferes with ADLs. (units unknown) (unknown) (unknown) (no date) (unknown) (unknown) software. 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 lesions. ?? (units unknown) (unknown) (unknown) (no date) (unknown) (unknown) stability intact.] ( units unknown) (unknown) (unknown) (no date) (unknown) (unknown) therapeutic in jections and surgery. The risks, consequences, alternatives and (units unknown) (unknown) (unknown) (no date) (unknown) (unknown) therapy. ?A re ferral was provided for the patient. [] (units unknown) (unknown) (unknown) (no date) (unknown) (unknown) ures.??Mild?re active?s ignal?throughout?the?e ndplates?of?the?lumbar ?and?lower?tho (units unknown) (unknown) (unknown) (no date) (unknown) (unknown) walking intact . Tandem gait normal without evidence of ataxia. Lower quarter (units unknown) (unknown) (unknown) (no date) (unknown) (unknown) well as treatm ent options including medications, physical therapy/exercise, (units unknown) (unknown) (unknown) (no date) (unknown) (unknown) with future tr eatment planning. [] (units unknown) (unknown) Result panel 2 (unknown) (no date) (unknown) (unknown) (no value) (units unknown) (unknown) (unknown) (no date) (unknown) (unknown) (0=absent, 1=s light response, 2=brisk/normal, 3=very brisk, 4=clonus) (units unknown) (unknown) (unknown) (no date) (unknown) (unknown) (segments are from the International Standards for Neurological Classification (units unknown) (unknown) (unknown) (no date) (unknown) (unknown) - Activity: Co ntinue activity as tolerated. [] (units unknown) (unknown) (unknown) (no date) (unknown) (unknown) - Chiropractor , acupuncture[] (units unknown) (unknown) (unknown) (no date) (unknown) (unknown) - Continues cl inician directed home exercise program including exercises learned (units unknown) (unknown) (unknown) (no date) (unknown) (unknown) - Education: C auda equina and associated symptoms, including motor weakness, (units unknown) (unknown) (unknown) (no date) (unknown) (unknown) - FADIR: [(-/+ ) on the R side / L side / bilaterally] (units unknown) (unknown) (unknown) (no date) (unknown) (unknown) - Follow-up: [] (uni ts unknown) (unknown) (unknown) (no date) (unknown) (unknown) - Hip ROM is: [WNL / limited and painful on the R sided / L side / bilaterally] (units unknown) (unknown) (unknown) (no date) (unknown) (unknown) - I discussed risks, benefits and side effects. Additionally, patient was (units unknown) (unknown) (unknown) (no date) (unknown) (unknown) - Imaging: No new imaging indicated at this time. [] (units unknown) (unknown) (unknown) (no date) (unknown) (unknown) - Interventional/Surgica l procedures: None indicated at this time. [] (units unknown) (unknown) (unknown) (no date) (unknown) (unknown) - Lumbar facet loading: [(-/+) on the R side / L side / bilaterally] (units unknown) (unknown) (unknown) (no date) (unknown) (unknown) - Medications: No new prescription at this time. Patient will continue current (units unknown) (unknown) (unknown) (no date) (unknown) (unknown) - Medications: acetaminophen, NSAIDS, neuropathics, muscle relaxants [] (units unknown) (unknown) (unknown) (no date) (unknown) (unknown) - Physical The rapy: Completed 6 week course in the last 6 months OR Patient (units unknown) (unknown) (unknown) (no date) (unknown) (unknown) - Physical therapy/modalities/DME : Patient will likely benefit from physical (units unknown) (unknown) (unknown) (no date) (unknown) (unknown) - Prescription provided and uptitration instructions given if necessary. [] (units unknown) (unknown) (unknown) (no date) (unknown) (unknown) - Previous [] on [] provided []% relief of pain for the expected duration of the (units unknown) (unknown) (unknown) (no date) (unknown) (unknown) - Referrals: N one indicated at this time. [] (units unknown) (unknown) (unknown) (no date) (unknown) (unknown) - SIJ provocat ion testing: [ (+/-) Kristen's finger test, posterior thrust, (units unknown) (unknown) (unknown) (no date) (unknown) (unknown) - Straight Leg Raise: [(-/+) on the L side / R side / bilaterally] (units unknown) (unknown) (unknown) (no date) (unknown) (unknown) [id number] (units unknown) (unknown) (unknown) (no date) (unknown) (unknown) 10/04/22 (units unknown) (unknown) (unknown) (no date) (unknown) (unknown) 1.?Multilevel? degenera tive?disc?and?facet?di sease,?as?well?as?liga mentum?flavum? (units unknown) (unknown) (unknown) (no date) (unknown) (unknown) 1.Limited?rang e?of?mot ion?and?multilevel?lum bar?spine?spondylosis, ?most?notably? (units unknown) (unknown) (unknown) (no date) (unknown) (unknown) 2.?Multilevel? canal?st enoses,?worst?at?L4-L5 ?where?there?is?severe ?canal?stenosi (units unknown) (unknown) (unknown) (no date) (unknown) (unknown) ,?14:34. (uni ts unknown) (unknown) (unknown) (no date) (unknown) (unknown) 3.?Multilevel? foramina l?stenoses,?worst?at?L 5 (units unknown) (unknown) (unknown) (no date) (unknown) (unknown) 4.??Left?iliop soas?mus ronald?atrophy.?? (units unknown) (unknown) (unknown) (no date) (unknown) (unknown) ? Inspection - ? No gross appendicular or axial deformities (units unknown) (unknown) (unknown) (no date) (unknown) (unknown) ? Palpation -? [Tender to palpation of / No tenderness to palpation] (units unknown) (unknown) (unknown) (no date) (unknown) (unknown) ? ROM - [Lumba r flexion/ extension/ lateral rotation is limited due to pain / (units unknown) (unknown) (unknown) (no date) (unknown) (unknown) ? Special tests (uni ts unknown) (unknown) (unknown) (no date) (unknown) (unknown) ?09/20/2022?at?15:01 (units unknown) (unknown) (unknown) (no date) (unknown) (unknown) ??5?lumbar?typ e?verteb ral?bodies?are?present ?by?plain?film.??There ?is?loss?of?no (units unknown) (unknown) (unknown) (no date) (unknown) (unknown) ??5?nonrib-viviana ring?bre tebrae?are?present.??3 ?mm?retrolisthesis?L2- L3,?L3-L4?and? (units unknown) (unknown) (unknown) (no date) (unknown) (unknown) ??5?views?of?t he?lumba r?spine?acquired,?incl uding?flexion?and?exte nsion?views.? (units unknown) (unknown) (unknown) (no date) (unknown) (unknown) ? Acetaminophen (units unknown) (unknown) (unknown) (no date) (unknown) (unknown) ? Antidepressants -current (units unknown) (unknown) (unknown) (no date) (unknown) (unknown) ? Antiepileptics -current (units unknown) (unknown) (unknown) (no date) (unknown) (unknown) ? Mu scle Relaxants -cyclobenzaprine (units unknown) (unknown) (unknown) (no date) (unknown) (unknown) ? NS AIDs -current (units unknown) (unknown) (unknown) (no date) (unknown) (unknown) ? Opioids (units unknown) (unknown) (unknown) (no date) (unknown) (unknown) ? Steroids (units unknown) (unknown) (unknown) (no date) (unknown) (unknown) ? Topicals (units unknown) (unknown) (unknown) (no date) (unknown) (unknown) ???Transcribed ?by:?DIANA MORAN?on?07/24/2022?at ?14:50?Approved?by: ?Leonel?Luisa, (units unknown) (unknown) (unknown) (no date) (unknown) (unknown) ??Conus?medull cade?ter minates?at?the?lower?L 1?level.??Visualized?c ord?demonstrat (units unknown) (unknown) (unknown) (no date) (unknown) (unknown) ??Marrow?is?of ?normal? overall?signal.??No?ac [place]?vertebral?body?com pression?fract (units unknown) (unknown) (unknown) (no date) (unknown) (unknown) ??Moderate?dis c?desicc ation.??Mild?disc?heig ht?loss?and?diffuse?di sc?bulge.??Mil (units unknown) (unknown) (unknown) (no date) (unknown) (unknown) ??Moderate?dis c?desicc ation.??Mild?disc?heig ht?loss?and?diffuse?di sc?bulge.??Mod (units unknown) (unknown) (unknown) (no date) (unknown) (unknown) ??Moderate?dis c?height ?loss?and?desiccation. ??Mild?diffuse?disc?bu lge.??Mild?fac (units unknown) (unknown) (unknown) (no date) (unknown) (unknown) ??Moderate?dis c?height ?loss?and?desiccation. ??No?significant?canal ,?or?foraminal (units unknown) (unknown) (unknown) (no date) (unknown) (unknown) ??No?paraverte bral?mas ses.??There?is?asymmet david?left?ileo?psoas?at rophy. (units unknown) (unknown) (unknown) (no date) (unknown) (unknown) ??Overlying?israel wel?gas? pattern?is?normal.??No ?suspicious?soft?tissu e?calcificatio (units unknown) (unknown) (unknown) (no date) (unknown) (unknown) ??[facility],?CR,?XR?LUMBAR?SPIN E?WITH?FLEXION?EXTENSI ON?5?VIEWS,?1/ (units unknown) (unknown) (unknown) (no date) (unknown) (unknown) ??There?is?sanchez ited?ran ge?of?motion,?with?pre served?normal?alignmen t.?? (units unknown) (unknown) (unknown) (no date) (unknown) (unknown) ?M.D.?on?2022?at? 15:37??? (units unknown) (unknown) (unknown) (no date) (unknown) (unknown) ?canal?stenosi s.??Mode rate?bilateral?foramin al?stenosis. (units unknown) (unknown) (unknown) (no date) (unknown) (unknown) ?stenosis. (units unknown) (unknown) (unknown) (no date) (unknown) (unknown) ?subarticular? foramina l?stenosis?bilaterally . (units unknown) (unknown) (unknown) (no date) (unknown) (unknown) ?vertebral?bod y?compre ssion?fractures.??No?s uspicious?bony?lesions .?? (units unknown) (unknown) (unknown) (no date) (unknown) (unknown) Age/Sex: 67 / F Date of Service: (units unknown) (unknown) (unknown) (no date) (unknown) (unknown) Aggravating fa ctors include: (units unknown) (unknown) (unknown) (no date) (unknown) (unknown) Alignment?and? [place]: (units unknown) (unknown) (unknown) (no date) (unknown) (unknown) All other syst ems reviewed and are unremarkable except as noted in HPI. (units unknown) (unknown) (unknown) (no date) (unknown) (unknown) Allergies (units unknown) (unknown) (unknown) (no date) (unknown) (unknown) Amitriptyline 10 mg (units unknown) (unknown) (unknown) (no date) (unknown) (unknown) Lang HEIDY [id number] (units unknown) (unknown) (unknown) (no date) (unknown) (unknown) Assessment + Plan (u nits unknown) (unknown) (unknown) (no date) (unknown) (unknown) Assessment: (units unknown) (unknown) (unknown) (no date) (unknown) (unknown) Attending Dr: Robin Morel MD (units unknown) (unknown) (unknown) (no date) (unknown) (unknown) Erika's Caitlin ngoing Downgoing (units unknown) (unknown) (unknown) (no date) (unknown) (unknown) Bilateral?hip? arthropl asties?incompletely?vi sualized. (units unknown) (unknown) (unknown) (no date) (unknown) (unknown) Bone?Marrow: (units unknown) (unknown) (unknown) (no date) (unknown) (unknown) Bones: (units unknown) (unknown) (unknown) (no date) (unknown) (unknown) Bowel and blad jonah: No loss of control (units unknown) (unknown) (unknown) (no date) (unknown) (unknown) COMPARISON: (units unknown) (unknown) (unknown) (no date) (unknown) (unknown) COMPARISON:??None. ( units unknown) (unknown) (unknown) (no date) (unknown) (unknown) Cardiovascular : No edema or cyanosis. 2+ peripheral pulses (units unknown) (unknown) (unknown) (no date) (unknown) (unknown) Chart review: (units unknown) (unknown) (unknown) (no date) (unknown) (unknown) Judi is a 67-year-old female with a history of chronic low back pain, lumbar (units unknown) (unknown) (unknown) (no date) (unknown) (unknown) Chief Complaint (uni ts unknown) (unknown) (unknown) (no date) (unknown) (unknown) Chief Complain t: Low back and leg pain (units unknown) (unknown) (unknown) (no date) (unknown) (unknown) Clonus None None (un its unknown) (unknown) (unknown) (no date) (unknown) (unknown) Conservative management includes: (units unknown) (unknown) (unknown) (no date) (unknown) (unknown) Continue [facility] physical therapy. [] (units unknown) (unknown) (unknown) (no date) (unknown) (unknown) Continue home exercise program. [] (units unknown) (unknown) (unknown) (no date) (unknown) (unknown) : 7 Acct:[id number] (units unknown) (unknown) (unknown) (no date) (unknown) (unknown) Denies recent trauma, fever or weight loss of unknown origin, immunocompromise (units unknown) (unknown) (unknown) (no date) (unknown) (unknown) Dept at [phone]. (units unknown) (unknown) (unknown) (no date) (unknown) (unknown) Details: (units unknown) (unknown) (unknown) (no date) (unknown) (unknown) Diclofenac 75 mg (un its unknown) (unknown) (unknown) (no date) (unknown) (unknown) Documented By: Robin Morel MD 10/15/22 1511 (units unknown) (unknown) (unknown) (no date) (unknown) (unknown) Draft (units unknown) (unknown) (unknown) (no date) (unknown) (unknown) Exam Narrative (unit s unknown) (unknown) (unknown) (no date) (unknown) (unknown) Exam Narrative: (uni ts unknown) (unknown) (unknown) (no date) (unknown) (unknown) Exam (units unknown) (unknown) (unknown) (no date) (unknown) (unknown) Fay MUHAMMAD's, Pelvic rocking on the R/L side / bilaterally] (units unknown) (unknown) (unknown) (no date) (unknown) (unknown) FINDINGS:?? (units unknown) (unknown) (unknown) (no date) (unknown) (unknown) Flexion/extension: ( units unknown) (unknown) (unknown) (no date) (unknown) (unknown) Gait/Station - [Non-antalgic gait. Heel (L5 strength) and toe (S1 strength) (units unknown) (unknown) (unknown) (no date) (unknown) (unknown) General: Well-nourished, well-developed, [sex] in no acute distress (units unknown) (unknown) (unknown) (no date) (unknown) (unknown) HPI (units unknown) (unknown) (unknown) (no date) (unknown) (unknown) IMPRESSION:?? (units unknown) (unknown) (unknown) (no date) (unknown) (unknown) INDICATIONS:?? lumbar?p ain (units unknown) (unknown) (unknown) (no date) (unknown) (unknown) INDICATIONS:??pain ( units unknown) (unknown) (unknown) (no date) (unknown) (unknown) Image?quality: ??Excell ent.?? (units unknown) (unknown) (unknown) (no date) (unknown) (unknown) Injections: (units unknown) (unknown) (unknown) (no date) (unknown) (unknown) Intake (units unknown) (unknown) (unknown) (no date) (unknown) (unknown) Intervention: Date: Outcome: (units unknown) (unknown) (unknown) (no date) (unknown) (unknown) JUSTIFICATION OF MEDICAL NECESSITY (units unknown) (unknown) (unknown) (no date) (unknown) (unknown) L-spine/T-spin e/C-spin e MRI ordered to better delineate the anatomy and help (units unknown) (unknown) (unknown) (no date) (unknown) (unknown) L1-L2: (units unknown) (unknown) (unknown) (no date) (unknown) (unknown) L2 Hip Flexion 5/5 5/5? (units unknown) (unknown) (unknown) (no date) (unknown) (unknown) L2-L3: (units unknown) (unknown) (unknown) (no date) (unknown) (unknown) L3 Knee Extens ion 5/5 5/5 (units unknown) (unknown) (unknown) (no date) (unknown) (unknown) L3-L4: (units unknown) (unknown) (unknown) (no date) (unknown) (unknown) L4 Ankle Dorsi flexion 5/5 5/5 (units unknown) (unknown) (unknown) (no date) (unknown) (unknown) L4 Patella 2+ 2 (uni ts unknown) (unknown) (unknown) (no date) (unknown) (unknown) L4-L5: (units unknown) (unknown) (unknown) (no date) (unknown) (unknown) L5 Long Toe Ex tension 5/5 5/5 (units unknown) (unknown) (unknown) (no date) (unknown) (unknown) L5-S1.??Multil evel?dis c?height?loss?with?end plate?sclerosis?and?sp urring,?s (units unknown) (unknown) (unknown) (no date) (unknown) (unknown) L5-S1: (units unknown) (unknown) (unknown) (no date) (unknown) (unknown) Loc: PAIN (units unknown) (unknown) (unknown) (no date) (unknown) (unknown) Lyrica 150 mg (units unknown) (unknown) (unknown) (no date) (unknown) (unknown) MSK: System re viewed and no additional complaints, except as documented. (units unknown) (unknown) (unknown) (no date) (unknown) (unknown) Medications: (units unknown) (unknown) (unknown) (no date) (unknown) (unknown) Morphine Aller gy (Unknown, Uncoded 10/08/17 11:46) (units unknown) (unknown) (unknown) (no date) (unknown) (unknown) Motor (units unknown) (unknown) (unknown) (no date) (unknown) (unknown) Musculoskeletal: (un its unknown) (unknown) (unknown) (no date) (unknown) (unknown) Neuro: System reviewed and no additional complaints, except as documented. (units unknown) (unknown) (unknown) (no date) (unknown) (unknown) Neurologic: (units unknown) (unknown) (unknown) (no date) (unknown) (unknown) Noncontrast?sa gittal?T 1?spin?echo?and?T2?fas t?echo,?sagittal?STIR, ?and?T2?fast?s (units unknown) (unknown) (unknown) (no date) (unknown) (unknown) Not indicated at this time. 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 SPINE?WITHOUT?CONTRAST (units unknown) (unknown) (unknown) (no date) (unknown) (unknown) PROCEDURE:??XR ?LUMBAR? SPINE?WITH?FLEXION?EXT ENSION?5?VIEWS (units unknown) (unknown) (unknown) (no date) (unknown) (unknown) PT:[employer] (u nits unknown) (unknown) (unknown) (no date) (unknown) (unknown) Pain Visit (units unknown) (unknown) (unknown) (no date) (unknown) (unknown) Pain location/Radiation: (units unknown) (unknown) (unknown) (no date) (unknown) (unknown) Pain rating: / 10 today, /10 at worst (units unknown) (unknown) (unknown) (no date) (unknown) (unknown) Paraspinous?So ft?Tissu es: (units unknown) (unknown) (unknown) (no date) (unknown) (unknown) Patient will r eturn for []. Risks and benefits were discussed. (units unknown) (unknown) (unknown) (no date) (unknown) (unknown) Patient's pain has been present for >6 weeks and is an average of >6/10 on 0-10 (units unknown) (unknown) (unknown) (no date) (unknown) (unknown) Patient: Judi Aguilar MR#: [id number] (units unknown) (unknown) (unknown) (no date) (unknown) (unknown) [place] Al t[place]mina (Verified 10/15/22 15:14) (units unknown) (unknown) (unknown) (no date) (unknown) (unknown) Pertinent medi cations include: (units unknown) (unknown) (unknown) (no date) (unknown) (unknown) Plan (units unknown) (unknown) (unknown) (no date) (unknown) (unknown) Plan/Recommendations : (units unknown) (unknown) (unknown) (no date) (unknown) (unknown) Prescriptions Written: [] (units unknown) (unknown) (unknown) (no date) (unknown) (unknown) Previous pain treatments included: (units unknown) (unknown) (unknown) (no date) (unknown) (unknown) Psych: Appropr iate affect, answers questions appropriately (units unknown) (unknown) (unknown) (no date) (unknown) (unknown) Quality and ti alirio of pain: (units unknown) (unknown) (unknown) (no date) (unknown) (unknown) ROS Narrative (units unknown) (unknown) (unknown) (no date) (unknown) (unknown) ROS Narrative: (unit s unknown) (unknown) (unknown) (no date) (unknown) (unknown) ROS (units unknown) (unknown) (unknown) (no date) (unknown) (unknown) Reason For Visit (un its unknown) (unknown) (unknown) (no date) (unknown) (unknown) Red flag symptoms: ( units unknown) (unknown) (unknown) (no date) (unknown) (unknown) Reflex Right Left (u nits unknown) (unknown) (unknown) (no date) (unknown) (unknown) Reflexes: (units unknown) (unknown) (unknown) (no date) (unknown) (unknown) Relieving fact ors include: (units unknown) (unknown) (unknown) (no date) (unknown) (unknown) Respiratory: Non-labored breathing pattern on RA. No respiratory distress (units unknown) (unknown) (unknown) (no date) (unknown) (unknown) Reviewed?by:?J eff?Chof fel?RRA?Interpreted:?J ason?Luisa??on?07/24?at?14:49 (units unknown) (unknown) (unknown) (no date) (unknown) (unknown) Reviewed?by:?Johnathon lutz?Kyle?Clayton?on?09/20/2022 ?at?14:57???Transcribe d?by:?KASSANDRA?on (units unknown) (unknown) (unknown) (no date) (unknown) (unknown) S1 Achilles 2+ 2 (un its unknown) (unknown) (unknown) (no date) (unknown) (unknown) S1 Ankle Plantarflexion 5/5 5/5 (units unknown) (unknown) (unknown) (no date) (unknown) (unknown) S1?where?there ?is?asso ciated?intraforaminal? nerve?root?compression .?Recommend?co (units unknown) (unknown) (unknown) (no date) (unknown) (unknown) Saddle anesthe kelby: denies (units unknown) (unknown) (unknown) (no date) (unknown) (unknown) Segment Action Right Left (units unknown) (unknown) (unknown) (no date) (unknown) (unknown) Segment Reflex Right Left (units unknown) (unknown) (unknown) (no date) (unknown) (unknown) Sensory -? Int act to light touch of bilateral lower extremities. Allodynia (units unknown) (unknown) (unknown) (no date) (unknown) (unknown) Signed By: (units unknown) (unknown) (unknown) (no date) (unknown) (unknown) Skin: No appre ciable rashes or skin breakdown (units unknown) (unknown) (unknown) (no date) (unknown) (unknown) Soft?tissues: (units unknown) (unknown) (unknown) (no date) (unknown) (unknown) Spinal?Cord: (units unknown) (unknown) (unknown) (no date) (unknown) (unknown) Standing: (units unknown) (unknown) (unknown) (no date) (unknown) (unknown) Surgery: Patie nt is s/p (units unknown) (unknown) (unknown) (no date) (unknown) (unknown) T12-L1: (units unknown) (unknown) (unknown) (no date) (unknown) (unknown) T2?fast?spin?e cho?may? be?performed.?? (units unknown) (unknown) (unknown) (no date) (unknown) (unknown) TECHNIQUE: (units unknown) (unknown) (unknown) (no date) (unknown) (unknown) TECHNIQUE:?? 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 (units unknown) (unknown) (unknown) (no date) (unknown) (unknown) We reviewed et iology, predisposing factor(s), natural course, imaging results as (units unknown) (unknown) (unknown) (no date) (unknown) (unknown) Weakness: denies (un its unknown) (unknown) (unknown) (no date) (unknown) (unknown) X-ray has been performed which is consistent with lumbar spondylosis, most (units unknown) (unknown) (unknown) (no date) (unknown) (unknown) at?the?L5-S1?level. (units unknown) (unknown) (unknown) (no date) (unknown) (unknown) benefits of va rious treatment options were discussed with the patient in great (units unknown) (unknown) (unknown) (no date) (unknown) (unknown) bowel/bladder dysfunction, and perineal numbness were discussed. The patient was (units unknown) (unknown) (unknown) (no date) (unknown) (unknown) cannot tolerat e physical therapy at the current time due to the intensity of the (units unknown) (unknown) (unknown) (no date) (unknown) (unknown) d?facet?and?li gamentum ?flavum?hypertrophy.?? Mild?epidural?lipomato sis.??Moderate (units unknown) (unknown) (unknown) (no date) (unknown) (unknown) detail. (units unknown) (unknown) (unknown) (no date) (unknown) (unknown) enosis.??Mild? bilatera l?foraminal?stenosis. (units unknown) (unknown) (unknown) (no date) (unknown) (unknown) erate?facet?an d?ligame ntum?flavum?hypertroph y.??Severe?canal?steno sis.??Moderate (units unknown) (unknown) (unknown) (no date) (unknown) (unknown) es?normal?sign al?and?s ize.?? (units unknown) (unknown) (unknown) (no date) (unknown) (unknown) et?and?ligamen jolly?flav um?hypertrophy.??Mild? canal?stenosis.??Sever e?bilateral?fo (units unknown) (unknown) (unknown) (no date) (unknown) (unknown) et?and?ligamen jolly?flav um?hypertrophy.??Mild? epidural?lipomatosis.? ?Mild?canal?st (units unknown) (unknown) (unknown) (no date) (unknown) (unknown) et?and?ligamen jolly?flav um?hypertrophy.??Moder ate?canal?stenosis.??M ild?bilateral? (units unknown) (unknown) (unknown) (no date) (unknown) (unknown) evere?at?the?L 5-S1?lev el.??Moderate?facet?ddee int?arthropathy?L4-L5? and?L5-S1.??No (units unknown) (unknown) (unknown) (no date) (unknown) (unknown) facet arthropa thy who presents for further evaluation of low back and leg pain. (units unknown) (unknown) (unknown) (no date) (unknown) (unknown) foraminal?stenosis. (units unknown) (unknown) (unknown) (no date) (unknown) (unknown) have occurred. If there are any questions, please contact the Medical Records (units unknown) (unknown) (unknown) (no date) (unknown) (unknown) hypertrophy?an d?epidur al?lipomatosis. (units unknown) (unknown) (unknown) (no date) (unknown) (unknown) improved sleep , improved mobility, etc. (units unknown) (unknown) (unknown) (no date) (unknown) (unknown) in PT. [] (units unknown) (unknown) (unknown) (no date) (unknown) (unknown) instructed to report to the Emergency department, if these symptoms occur. (units unknown) (unknown) (unknown) (no date) (unknown) (unknown) instructed to stop if any side effects. [] (units unknown) (unknown) (unknown) (no date) (unknown) (unknown) intravenous dr ug use, sustained glucocorticoid use, osteoporosis, or a focal (units unknown) (unknown) (unknown) (no date) (unknown) (unknown) local anesthet ic. During that time patient able to participate in ADLs, had (units unknown) (unknown) (unknown) (no date) (unknown) (unknown) may occur. Occ asional wrong-word or 'sound-alike' substitutions may have (units unknown) (unknown) (unknown) (no date) (unknown) (unknown) meds. [] (units unknown) (unknown) (unknown) (no date) (unknown) (unknown) nd?L5?on?S1. (units unknown) (unknown) (unknown) (no date) (unknown) (unknown) negative, Hype ralgesia - negative (units unknown) (unknown) (unknown) (no date) (unknown) (unknown) neurological d eficit with progressive or disabling symptoms. (units unknown) (unknown) (unknown) (no date) (unknown) (unknown) ns.??Cholecyst ectomy?c lips. (units unknown) (unknown) (unknown) (no date) (unknown) (unknown) occurred due t o the inherent limitations of voice recognition software. Please (units unknown) (unknown) (unknown) (no date) (unknown) (unknown) of Spinal Cord Injur y) (units unknown) (unknown) (unknown) (no date) (unknown) (unknown) or immunosuppr essive therapy, previous or current cancer diagnosis, history of (units unknown) (unknown) (unknown) (no date) (unknown) (unknown) pain. [] (units unknown) (unknown) (unknown) (no date) (unknown) (unknown) pin?echo?throu gh?the?l umbar?spine.??In?cases ?with?scoliosis,?addit ional?coronal? (units unknown) (unknown) (unknown) (no date) (unknown) (unknown) racic?spine. (units unknown) (unknown) (unknown) (no date) (unknown) (unknown) radiculopathy, lumbar spinal stenosis with neurogenic claudication and lumbar (units unknown) (unknown) (unknown) (no date) (unknown) (unknown) raminal?stenos is?with? bilateral?L5?nerve?ghanshyam t?compression. (units unknown) (unknown) (unknown) (no date) (unknown) (unknown) read the note carefully and recognize, using context, where these substitutions (units unknown) (unknown) (unknown) (no date) (unknown) (unknown) record, includ ing relevant provider notes, laboratory work, and imaging. (units unknown) (unknown) (unknown) (no date) (unknown) (unknown) rmal?lumbar?lo rdosis.? ?3?mm?of?retrolisthesi s?of?L1?on?L2,?L2?on?L 3,?L3?on?L4,?a (units unknown) (unknown) (unknown) (no date) (unknown) (unknown) rrelation?with ?clinica l?symptoms?to?ascertai n?relevance?of?this?fi nding.? (units unknown) (unknown) (unknown) (no date) (unknown) (unknown) s.??Moderate?c anal?james nosis?at?L2-L3?and?L3- L4. (units unknown) (unknown) (unknown) (no date) (unknown) (unknown) scale and/or p ain interferes with ADLs. (units unknown) (unknown) (unknown) (no date) (unknown) (unknown) severe at the L5-S1 level. MRI concerning for multilevel central canal (units unknown) (unknown) (unknown) (no date) (unknown) (unknown) software. Alth ough every effort is made to edit content, managed security sales consultant errors (units unknown) (unknown) (unknown) (no date) (unknown) (unknown) stability intact.] ( units unknown) (unknown) (unknown) (no date) (unknown) (unknown) stenosis at L5 -S1. She is seen by Dr. Licona with Orthopedic spine surgery and (units unknown) (unknown) (unknown) (no date) (unknown) (unknown) stenosis, wors e at L4-5 and L5-S1. There is also bilateral neural foraminal (units unknown) (unknown) (unknown) (no date) (unknown) (unknown) therapeutic in jections and surgery. The risks, consequences, alternatives and (units unknown) (unknown) (unknown) (no date) (unknown) (unknown) therapy. ?A re ferral was provided for the patient. [] (units unknown) (unknown) (unknown) (no date) (unknown) (unknown) ures.??Mild?re active?s ignal?throughout?the?e ndplates?of?the?lumbar ?and?lower?tho (units unknown) (unknown) (unknown) (no date) (unknown) (unknown) wait for surge ry until after consultation with pain management. (units unknown) (unknown) (unknown) (no date) (unknown) (unknown) walking intact . Tandem gait normal without evidence of ataxia. Lower quarter (units unknown) (unknown) (unknown) (no date) (unknown) (unknown) was felt to be a surgical candidate for laminectomy at L4-5. Patient elected to (units unknown) (unknown) (unknown) (no date) (unknown) (unknown) well as treatm ent options including medications, physical therapy/exercise, (units unknown) (unknown) (unknown) (no date) (unknown) (unknown) with future tr eatment planning. [] (units unknown) (unknown) Result panel 3 (unknown) (no date) (unknown) (unknown) (no value) (units unknown) (unknown) (unknown) (no date) (unknown) (unknown) (0=absent, 1=s light response, 2=brisk/normal, 3=very brisk, 4=clonus) (units unknown) (unknown) (unknown) (no date) (unknown) (unknown) (segments are from the International Standards for Neurological Classification (units unknown) (unknown) (unknown) (no date) (unknown) (unknown) - Activity: Co ntinue activity as tolerated. [] (units unknown) (unknown) (unknown) (no date) (unknown) (unknown) - Chiropractor , acupuncture[] (units unknown) (unknown) (unknown) (no date) (unknown) (unknown) - Continues cl inician directed home exercise program including exercises learned (units unknown) (unknown) (unknown) (no date) (unknown) (unknown) - Education: C auda equina and associated symptoms, including motor weakness, (units unknown) (unknown) (unknown) (no date) (unknown) (unknown) - FADIR: [(-/+ ) on the R side / L side / bilaterally] (units unknown) (unknown) (unknown) (no date) (unknown) (unknown) - Follow-up: [] (uni ts unknown) (unknown) (unknown) (no date) (unknown) (unknown) - Hip ROM is: [WNL / limited and painful on the R sided / L side / bilaterally] (units unknown) (unknown) (unknown) (no date) (unknown) (unknown) - I discussed risks, benefits and side effects. Additionally, patient was (units unknown) (unknown) (unknown) (no date) (unknown) (unknown) - Imaging: No new imaging indicated at this time. [] (units unknown) (unknown) (unknown) (no date) (unknown) (unknown) - Interventional/Surgica l procedures: None indicated at this time. [] (units unknown) (unknown) (unknown) (no date) (unknown) (unknown) - Lumbar facet loading: [(-/+) on the R side / L side / bilaterally] (units unknown) (unknown) (unknown) (no date) (unknown) (unknown) - Medications: No new prescription at this time. Patient will continue current (units unknown) (unknown) (unknown) (no date) (unknown) (unknown) - Medications: acetaminophen, NSAIDS, neuropathics, muscle relaxants [] (units unknown) (unknown) (unknown) (no date) (unknown) (unknown) - Physical The rapy: Completed 6 week course in the last 6 months OR Patient (units unknown) (unknown) (unknown) (no date) (unknown) (unknown) - Physical therapy/modalities/DME : Patient will likely benefit from physical (units unknown) (unknown) (unknown) (no date) (unknown) (unknown) - Prescription provided and uptitration instructions given if necessary. [] (units unknown) (unknown) (unknown) (no date) (unknown) (unknown) - Previous [] on [] provided []% relief of pain for the expected duration of the (units unknown) (unknown) (unknown) (no date) (unknown) (unknown) - Referrals: N one indicated at this time. [] (units unknown) (unknown) (unknown) (no date) (unknown) (unknown) - SIJ provocat ion testing: [ (+/-) Kristen's finger test, posterior thrust, (units unknown) (unknown) (unknown) (no date) (unknown) (unknown) - Straight Leg Raise: [(-/+) on the L side / R side / bilaterally] (units unknown) (unknown) (unknown) (no date) (unknown) (unknown) [id number] (units unknown) (unknown) (unknown) (no date) (unknown) (unknown) 10/04/22 (units unknown) (unknown) (unknown) (no date) (unknown) (unknown) 1.?Multilevel? degenera tive?disc?and?facet?di sease,?as?well?as?liga mentum?flavum? (units unknown) (unknown) (unknown) (no date) (unknown) (unknown) 1.Limited?rang e?of?mot ion?and?multilevel?lum bar?spine?spondylosis, ?most?notably? (units unknown) (unknown) (unknown) (no date) (unknown) (unknown) 2.?Multilevel? canal?st enoses,?worst?at?L4-L5 ?where?there?is?severe ?canal?stenosi (units unknown) (unknown) (unknown) (no date) (unknown) (unknown) ,?14:34. (uni ts unknown) (unknown) (unknown) (no date) (unknown) (unknown) 3.?Multilevel? foramina l?stenoses,?worst?at?L 5 (units unknown) (unknown) (unknown) (no date) (unknown) (unknown) 4.??Left?iliop soas?mus ronald?atrophy.?? (units unknown) (unknown) (unknown) (no date) (unknown) (unknown) ? Inspection - ? No gross appendicular or axial deformities (units unknown) (unknown) (unknown) (no date) (unknown) (unknown) ? Palpation -? [Tender to palpation of / No tenderness to palpation] (units unknown) (unknown) (unknown) (no date) (unknown) (unknown) ? ROM - [Lumba r flexion/ extension/ lateral rotation is limited due to pain / (units unknown) (unknown) (unknown) (no date) (unknown) (unknown) ? Special tests (uni ts unknown) (unknown) (unknown) (no date) (unknown) (unknown) ?09/20/2022?at?15:01 (units unknown) (unknown) (unknown) (no date) (unknown) (unknown) ??5?lumbar?typ e?verteb ral?bodies?are?present ?by?plain?film.??There ?is?loss?of?no (units unknown) (unknown) (unknown) (no date) (unknown) (unknown) ??5?nonrib-viviana ring?bre tebrae?are?present.??3 ?mm?retrolisthesis?L2- L3,?L3-L4?and? (units unknown) (unknown) (unknown) (no date) (unknown) (unknown) ??5?views?of?t he?lumba r?spine?acquired,?incl uding?flexion?and?exte nsion?views.? (units unknown) (unknown) (unknown) (no date) (unknown) (unknown) ? Acetaminophen (units unknown) (unknown) (unknown) (no date) (unknown) (unknown) ? Antidepressants -current (units unknown) (unknown) (unknown) (no date) (unknown) (unknown) ? Antiepileptics -current (units unknown) (unknown) (unknown) (no date) (unknown) (unknown) ? Mu scle Relaxants -cyclobenzaprine (units unknown) (unknown) (unknown) (no date) (unknown) (unknown) ? NS AIDs -current (units unknown) (unknown) (unknown) (no date) (unknown) (unknown) ? Opioids (units unknown) (unknown) (unknown) (no date) (unknown) (unknown) ? Steroids (units unknown) (unknown) (unknown) (no date) (unknown) (unknown) ? Topicals (units unknown) (unknown) (unknown) (no date) (unknown) (unknown) ???Transcribed ?by:?DIANA MORAN?on?07/24/2022?at ?14:50?Approved?by: ?Leonel?Luisa, (units unknown) (unknown) (unknown) (no date) (unknown) (unknown) ??Conus?medull cade?ter minates?at?the?lower?L 1?level.??Visualized?c ord?demonstrat (units unknown) (unknown) (unknown) (no date) (unknown) (unknown) ??Marrow?is?of ?normal? overall?signal.??No?ac [place]?vertebral?body?com pression?fract (units unknown) (unknown) (unknown) (no date) (unknown) (unknown) ??Moderate?dis c?desicc ation.??Mild?disc?heig ht?loss?and?diffuse?di sc?bulge.??Mil (units unknown) (unknown) (unknown) (no date) (unknown) (unknown) ??Moderate?dis c?desicc ation.??Mild?disc?heig ht?loss?and?diffuse?di sc?bulge.??Mod (units unknown) (unknown) (unknown) (no date) (unknown) (unknown) ??Moderate?dis c?height ?loss?and?desiccation. ??Mild?diffuse?disc?bu lge.??Mild?fac (units unknown) (unknown) (unknown) (no date) (unknown) (unknown) ??Moderate?dis c?height ?loss?and?desiccation. ??No?significant?canal ,?or?foraminal (units unknown) (unknown) (unknown) (no date) (unknown) (unknown) ??No?paraverte bral?mas ses.??There?is?asymmet david?left?ileo?psoas?at rophy. (units unknown) (unknown) (unknown) (no date) (unknown) (unknown) ??Overlying?israel wel?gas? pattern?is?normal.??No ?suspicious?soft?tissu e?calcificatio (units unknown) (unknown) (unknown) (no date) (unknown) (unknown) ??[facility],?CR,?XR?LUMBAR?SPIN E?WITH?FLEXION?EXTENSI ON?5?VIEWS,?1/ (units unknown) (unknown) (unknown) (no date) (unknown) (unknown) ??There?is?sanchez ited?ran ge?of?motion,?with?pre served?normal?alignmen t.?? (units unknown) (unknown) (unknown) (no date) (unknown) (unknown) ?M.D.?on?2022?at? 15:37??? (units unknown) (unknown) (unknown) (no date) (unknown) (unknown) ?canal?stenosi s.??Mode rate?bilateral?foramin al?stenosis. (units unknown) (unknown) (unknown) (no date) (unknown) (unknown) ?stenosis. (units unknown) (unknown) (unknown) (no date) (unknown) (unknown) ?subarticular? foramina l?stenosis?bilaterally . (units unknown) (unknown) (unknown) (no date) (unknown) (unknown) ?vertebral?bod y?compre ssion?fractures.??No?s uspicious?bony?lesions .?? (units unknown) (unknown) (unknown) (no date) (unknown) (unknown) Age/Sex: 67 / F Date of Service: (units unknown) (unknown) (unknown) (no date) (unknown) (unknown) Aggravating fa ctors include: (units unknown) (unknown) (unknown) (no date) (unknown) (unknown) Alignment?and? [place]: (units unknown) (unknown) (unknown) (no date) (unknown) (unknown) All other syst ems reviewed and are unremarkable except as noted in HPI. (units unknown) (unknown) (unknown) (no date) (unknown) (unknown) Allergies (units unknown) (unknown) (unknown) (no date) (unknown) (unknown) Amitriptyline 10 mg (units unknown) (unknown) (unknown) (no date) (unknown) (unknown) [place] [id number] (units unknown) (unknown) (unknown) (no date) (unknown) (unknown) Assessment + Plan (u nits unknown) (unknown) (unknown) (no date) (unknown) (unknown) Assessment: (units unknown) (unknown) (unknown) (no date) (unknown) (unknown) Attending Dr: Robin Morel MD (units unknown) (unknown) (unknown) (no date) (unknown) (unknown) Erika's Caitlin ngoing Downgoing (units unknown) (unknown) (unknown) (no date) (unknown) (unknown) Bilateral?hip? arthropl asties?incompletely?vi sualized. (units unknown) (unknown) (unknown) (no date) (unknown) (unknown) Bone?Marrow: (units unknown) (unknown) (unknown) (no date) (unknown) (unknown) Bones: (units unknown) (unknown) (unknown) (no date) (unknown) (unknown) Bowel and blad jonah: No loss of control (units unknown) (unknown) (unknown) (no date) (unknown) (unknown) COMPARISON: (units unknown) (unknown) (unknown) (no date) (unknown) (unknown) COMPARISON:??None. ( units unknown) (unknown) (unknown) (no date) (unknown) (unknown) Cardiovascular : No edema or cyanosis. 2+ peripheral pulses (units unknown) (unknown) (unknown) (no date) (unknown) (unknown) Chart review: (units unknown) (unknown) (unknown) (no date) (unknown) (unknown) Judi is a 67-year-old female with a history of chronic low back pain, lumbar (units unknown) (unknown) (unknown) (no date) (unknown) (unknown) Chief Complaint (uni ts unknown) (unknown) (unknown) (no date) (unknown) (unknown) Chief Complain t: Low back and leg pain (units unknown) (unknown) (unknown) (no date) (unknown) (unknown) Clonus None None (un its unknown) (unknown) (unknown) (no date) (unknown) (unknown) Conservative management includes: (units unknown) (unknown) (unknown) (no date) (unknown) (unknown) Continue curre nt physical therapy. [] (units unknown) (unknown) (unknown) (no date) (unknown) (unknown) Continue home exercise program. [] (units unknown) (unknown) (unknown) (no date) (unknown) (unknown) : 7 Acct:[id number] (units unknown) (unknown) (unknown) (no date) (unknown) (unknown) Denies recent trauma, fever or weight loss of unknown origin, immunocompromise (units unknown) (unknown) (unknown) (no date) (unknown) (unknown) Dept at [phone]. (units unknown) (unknown) (unknown) (no date) (unknown) (unknown) Details: (units unknown) (unknown) (unknown) (no date) (unknown) (unknown) Diclofenac 75 mg (un its unknown) (unknown) (unknown) (no date) (unknown) (unknown) Documented By: Robin Morel MD 10/15/22 1511 (units unknown) (unknown) (unknown) (no date) (unknown) (unknown) Draft (units unknown) (unknown) (unknown) (no date) (unknown) (unknown) Exam Narrative (unit s unknown) (unknown) (unknown) (no date) (unknown) (unknown) Exam Narrative: (uni ts unknown) (unknown) (unknown) (no date) (unknown) (unknown) Exam (units unknown) (unknown) (unknown) (no date) (unknown) (unknown) Fay [facility] n's, Pelvic rocking on the R/L side / bilaterally] (units unknown) (unknown) (unknown) (no date) (unknown) (unknown) FINDINGS:?? (units unknown) (unknown) (unknown) (no date) (unknown) (unknown) Flexion/extension: ( units unknown) (unknown) (unknown) (no date) (unknown) (unknown) Gait/Station - [Non-antalgic gait. Heel (L5 strength) and toe (S1 strength) (units unknown) (unknown) (unknown) (no date) (unknown) (unknown) General: Well-nourished, well-developed, [sex] in no acute distress (units unknown) (unknown) (unknown) (no date) (unknown) (unknown) HPI (units unknown) (unknown) (unknown) (no date) (unknown) (unknown) IMPRESSION:?? (units unknown) (unknown) (unknown) (no date) (unknown) (unknown) INDICATIONS:?? lumbar?p ain (units unknown) (unknown) (unknown) (no date) (unknown) (unknown) INDICATIONS:??pain ( units unknown) (unknown) (unknown) (no date) (unknown) (unknown) Image?quality: ??Excell ent.?? (units unknown) (unknown) (unknown) (no date) (unknown) (unknown) Injections: (units unknown) (unknown) (unknown) (no date) (unknown) (unknown) Intake (units unknown) (unknown) (unknown) (no date) (unknown) (unknown) Intervention: Date: Outcome: (units unknown) (unknown) (unknown) (no date) (unknown) (unknown) JUSTIFICATION OF MEDICAL NECESSITY (units unknown) (unknown) (unknown) (no date) (unknown) (unknown) L-spine/T-spin e/C-spin e MRI ordered to better delineate the anatomy and help (units unknown) (unknown) (unknown) (no date) (unknown) (unknown) L1-L2: (units unknown) (unknown) (unknown) (no date) (unknown) (unknown) L2 Hip Flexion 5/5 5/5? (units unknown) (unknown) (unknown) (no date) (unknown) (unknown) L2-L3: (units unknown) (unknown) (unknown) (no date) (unknown) (unknown) L3 Knee Extens ion 5/5 5/5 (units unknown) (unknown) (unknown) (no date) (unknown) (unknown) L3-L4: (units unknown) (unknown) (unknown) (no date) (unknown) (unknown) L4 Ankle Dorsi flexion 5/5 5/5 (units unknown) (unknown) (unknown) (no date) (unknown) (unknown) L4 Patella 2+ 2 (uni ts unknown) (unknown) (unknown) (no date) (unknown) (unknown) L4-L5: (units unknown) (unknown) (unknown) (no date) (unknown) (unknown) L5 Long Toe Ex tension 5/5 5/5 (units unknown) (unknown) (unknown) (no date) (unknown) (unknown) L5-S1.??Multil evel?dis c?height?loss?with?end plate?sclerosis?and?sp urring,?s (units unknown) (unknown) (unknown) (no date) (unknown) (unknown) L5-S1: (units unknown) (unknown) (unknown) (no date) (unknown) (unknown) Loc: PAIN (units unknown) (unknown) (unknown) (no date) (unknown) (unknown) Lyrica 150 mg (units unknown) (unknown) (unknown) (no date) (unknown) (unknown) MSK: System re viewed and no additional complaints, except as documented. (units unknown) (unknown) (unknown) (no date) (unknown) (unknown) Medications: (units unknown) (unknown) (unknown) (no date) (unknown) (unknown) Morphine Aller gy (Unknown, Uncoded 10/08/17 11:46) (units unknown) (unknown) (unknown) (no date) (unknown) (unknown) Motor (units unknown) (unknown) (unknown) (no date) (unknown) (unknown) Musculoskeletal: (un its unknown) (unknown) (unknown) (no date) (unknown) (unknown) Neuro: System reviewed and no additional complaints, except as documented. (units unknown) (unknown) (unknown) (no date) (unknown) (unknown) Neurologic: (units unknown) (unknown) (unknown) (no date) (unknown) (unknown) Noncontrast?sa gittal?T 1?spin?echo?and?T2?fas t?echo,?sagittal?STIR, ?and?T2?fast?s (units unknown) (unknown) (unknown) (no date) (unknown) (unknown) Not indicated at this time. 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 SPINE?WITHOUT?CONTRAST (units unknown) (unknown) (unknown) (no date) (unknown) (unknown) PROCEDURE:??XR ?LUMBAR? SPINE?WITH?FLEXION?EXT ENSION?5?VIEWS (units unknown) (unknown) (unknown) (no date) (unknown) (unknown) PT:[employer] (u nits unknown) (unknown) (unknown) (no date) (unknown) (unknown) Pain Visit (units unknown) (unknown) (unknown) (no date) (unknown) (unknown) Pain location/Radiation: (units unknown) (unknown) (unknown) (no date) (unknown) (unknown) Pain rating: / 10 today, /10 at worst (units unknown) (unknown) (unknown) (no date) (unknown) (unknown) Paraspinous?So ft?Tissu es: (units unknown) (unknown) (unknown) (no date) (unknown) (unknown) Patient will r eturn for []. Risks and benefits were discussed. (units unknown) (unknown) (unknown) (no date) (unknown) (unknown) Patient's pain has been present for >6 weeks and is an average of >6/10 on 0-10 (units unknown) (unknown) (unknown) (no date) (unknown) (unknown) Patient: Judi Aguilar MR#: [id number] (units unknown) (unknown) (unknown) (no date) (unknown) (unknown) [place] Al t[place]mina (Verified 10/15/22 15:14) (units unknown) (unknown) (unknown) (no date) (unknown) (unknown) Pertinent medi cations include: (units unknown) (unknown) (unknown) (no date) (unknown) (unknown) Plan (units unknown) (unknown) (unknown) (no date) (unknown) (unknown) Plan/Recommendations : (units unknown) (unknown) (unknown) (no date) (unknown) (unknown) Prescriptions Written: [] (units unknown) (unknown) (unknown) (no date) (unknown) (unknown) Previous pain treatments included: (units unknown) (unknown) (unknown) (no date) (unknown) (unknown) Psych: Appropr iate affect, answers questions appropriately (units unknown) (unknown) (unknown) (no date) (unknown) (unknown) Quality and ti alirio of pain: (units unknown) (unknown) (unknown) (no date) (unknown) (unknown) ROS Narrative (units unknown) (unknown) (unknown) (no date) (unknown) (unknown) ROS Narrative: (unit s unknown) (unknown) (unknown) (no date) (unknown) (unknown) ROS (units unknown) (unknown) (unknown) (no date) (unknown) (unknown) Reason For Visit (un its unknown) (unknown) (unknown) (no date) (unknown) (unknown) Red flag symptoms: ( units unknown) (unknown) (unknown) (no date) (unknown) (unknown) Reflex Right Left (u nits unknown) (unknown) (unknown) (no date) (unknown) (unknown) Reflexes: (units unknown) (unknown) (unknown) (no date) (unknown) (unknown) Relieving fact ors include: (units unknown) (unknown) (unknown) (no date) (unknown) (unknown) Respiratory: Non-labored breathing pattern on RA. No respiratory distress (units unknown) (unknown) (unknown) (no date) (unknown) (unknown) Reviewed?by:?J eff?Chof fel?RRA?Interpreted:?Luther pathakn?Luisa??on?07/24?at?14:49 (units unknown) (unknown) (unknown) (no date) (unknown) (unknown) Reviewed?by:?Johnathon lutz?Kyle?Clayton?on?09/20/2022 ?at?14:57???Transcribe d?by:?KASSANDRA?on (units unknown) (unknown) (unknown) (no date) (unknown) (unknown) S1 Achilles 2+ 2 (un its unknown) (unknown) (unknown) (no date) (unknown) (unknown) S1 Ankle Plantarflexion 5/5 5/5 (units unknown) (unknown) (unknown) (no date) (unknown) (unknown) S1?where?there ?is?asso ciated?intraforaminal? nerve?root?compression .?Recommend?co (units unknown) (unknown) (unknown) (no date) (unknown) (unknown) Saddle anesthe kelby: denies (units unknown) (unknown) (unknown) (no date) (unknown) (unknown) Segment Action Right Left (units unknown) (unknown) (unknown) (no date) (unknown) (unknown) Segment Reflex Right Left (units unknown) (unknown) (unknown) (no date) (unknown) (unknown) Sensory -? Int act to light touch of bilateral lower extremities. Allodynia (units unknown) (unknown) (unknown) (no date) (unknown) (unknown) Signed By: (units unknown) (unknown) (unknown) (no date) (unknown) (unknown) Skin: No appre ciable rashes or skin breakdown (units unknown) (unknown) (unknown) (no date) (unknown) (unknown) Soft?tissues: (units unknown) (unknown) (unknown) (no date) (unknown) (unknown) Spinal?Cord: (units unknown) (unknown) (unknown) (no date) (unknown) (unknown) Standing: (units unknown) (unknown) (unknown) (no date) (unknown) (unknown) Surgery: Patie nt is s/p (units unknown) (unknown) (unknown) (no date) (unknown) (unknown) T12-L1: (units unknown) (unknown) (unknown) (no date) (unknown) (unknown) T2?fast?spin?e cho?may? be?performed.?? (units unknown) (unknown) (unknown) (no date) (unknown) (unknown) TECHNIQUE: (units unknown) (unknown) (unknown) (no date) (unknown) (unknown) TECHNIQUE:?? 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 (units unknown) (unknown) (unknown) (no date) (unknown) (unknown) We reviewed et iology, predisposing factor(s), natural course, imaging results as (units unknown) (unknown) (unknown) (no date) (unknown) (unknown) Weakness: denies (un its unknown) (unknown) (unknown) (no date) (unknown) (unknown) X-ray has been performed which is consistent with lumbar spondylosis, most (units unknown) (unknown) (unknown) (no date) (unknown) (unknown) at?the?L5-S1?level. (units unknown) (unknown) (unknown) (no date) (unknown) (unknown) benefits of va rious treatment options were discussed with the patient in great (units unknown) (unknown) (unknown) (no date) (unknown) (unknown) bowel/bladder dysfunction, and perineal numbness were discussed. The patient was (units unknown) (unknown) (unknown) (no date) (unknown) (unknown) cannot tolerat e physical therapy at the current time due to the intensity of the (units unknown) (unknown) (unknown) (no date) (unknown) (unknown) d?facet?and?li gamentum ?flavum?hypertrophy.?? Mild?epidural?lipomato sis.??Moderate (units unknown) (unknown) (unknown) (no date) (unknown) (unknown) detail. (units unknown) (unknown) (unknown) (no date) (unknown) (unknown) enosis.??Mild? bilatera l?foraminal?stenosis. (units unknown) (unknown) (unknown) (no date) (unknown) (unknown) erate?facet?an d?ligame ntum?flavum?hypertroph y.??Severe?canal?steno sis.??Moderate (units unknown) (unknown) (unknown) (no date) (unknown) (unknown) es?normal?sign al?and?s ize.?? (units unknown) (unknown) (unknown) (no date) (unknown) (unknown) et?and?ligamen jolly?flav um?hypertrophy.??Mild? canal?stenosis.??Sever e?bilateral?fo (units unknown) (unknown) (unknown) (no date) (unknown) (unknown) et?and?ligamen jolly?flav um?hypertrophy.??Mild? epidural?lipomatosis.? ?Mild?canal?st (units unknown) (unknown) (unknown) (no date) (unknown) (unknown) et?and?ligamen jolly?flav um?hypertrophy.??Moder ate?canal?stenosis.??M ild?bilateral? (units unknown) (unknown) (unknown) (no date) (unknown) (unknown) evere?at?the?L 5-S1?lev el.??Moderate?facet?dede int?arthropathy?L4-L5? and?L5-S1.??No (units unknown) (unknown) (unknown) (no date) (unknown) (unknown) facet arthropa thy who presents for further evaluation of low back and leg pain. (units unknown) (unknown) (unknown) (no date) (unknown) (unknown) foraminal?stenosis. (units unknown) (unknown) (unknown) (no date) (unknown) (unknown) have occurred. If there are any questions, please contact the Medical Records (units unknown) (unknown) (unknown) (no date) (unknown) (unknown) hypertrophy?an d?epidur al?lipomatosis. (units unknown) (unknown) (unknown) (no date) (unknown) (unknown) improved sleep , improved mobility, etc. (units unknown) (unknown) (unknown) (no date) (unknown) (unknown) in PT. [] (units unknown) (unknown) (unknown) (no date) (unknown) (unknown) instructed to report to the Emergency department, if these symptoms occur. (units unknown) (unknown) (unknown) (no date) (unknown) (unknown) instructed to stop if any side effects. [] (units unknown) (unknown) (unknown) (no date) (unknown) (unknown) intravenous dr ug use, sustained glucocorticoid use, osteoporosis, or a focal (units unknown) (unknown) (unknown) (no date) (unknown) (unknown) local anesthet ic. During that time patient able to participate in ADLs, had (units unknown) (unknown) (unknown) (no date) (unknown) (unknown) may occur. Occ asional wrong-word or 'sound-alike' substitutions may have (units unknown) (unknown) (unknown) (no date) (unknown) (unknown) meds. [] (units unknown) (unknown) (unknown) (no date) (unknown) (unknown) nd?L5?on?S1. (units unknown) (unknown) (unknown) (no date) (unknown) (unknown) negative, Hype ralgesia - negative (units unknown) (unknown) (unknown) (no date) (unknown) (unknown) neurological d eficit with progressive or disabling symptoms. (units unknown) (unknown) (unknown) (no date) (unknown) (unknown) ns.??Cholecyst ectomy?c lips. (units unknown) (unknown) (unknown) (no date) (unknown) (unknown) occurred due t o the inherent limitations of voice recognition software. Please (units unknown) (unknown) (unknown) (no date) (unknown) (unknown) of Spinal Cord Injur y) (units unknown) (unknown) (unknown) (no date) (unknown) (unknown) or immunosuppr essive therapy, previous or current cancer diagnosis, history of (units unknown) (unknown) (unknown) (no date) (unknown) (unknown) pain. [] (units unknown) (unknown) (unknown) (no date) (unknown) (unknown) pin?echo?throu gh?the?l umbar?spine.??In?cases ?with?scoliosis,?addit ional?coronal? (units unknown) (unknown) (unknown) (no date) (unknown) (unknown) racic?spine. (units unknown) (unknown) (unknown) (no date) (unknown) (unknown) radiculopathy, lumbar spinal stenosis with neurogenic claudication and lumbar (units unknown) (unknown) (unknown) (no date) (unknown) (unknown) raminal?stenos is?with? bilateral?L5?nerve?ghanshyam t?compression. (units unknown) (unknown) (unknown) (no date) (unknown) (unknown) read the note carefully and recognize, using context, where these substitutions (units unknown) (unknown) (unknown) (no date) (unknown) (unknown) record, includ ing relevant provider notes, laboratory work, and imaging. (units unknown) (unknown) (unknown) (no date) (unknown) (unknown) rmal?lumbar?lo rdosis.? ?3?mm?of?retrolisthesi s?of?L1?on?L2,?L2?on?L 3,?L3?on?L4,?a (units unknown) (unknown) (unknown) (no date) (unknown) (unknown) rrelation?with ?clinica l?symptoms?to?ascertai n?relevance?of?this?fi nding.? (units unknown) (unknown) (unknown) (no date) (unknown) (unknown) s.??Moderate?c anal?james nosis?at?L2-L3?and?L3- L4. (units unknown) (unknown) (unknown) (no date) (unknown) (unknown) scale and/or p ain interferes with ADLs. (units unknown) (unknown) (unknown) (no date) (unknown) (unknown) severe at the L5-S1 level. MRI concerning for multilevel central canal (units unknown) (unknown) (unknown) (no date) (unknown) (unknown) software. Alth ough every effort is made to edit content, managed security sales consultant errors (units unknown) (unknown) (unknown) (no date) (unknown) (unknown) stability intact.] ( units unknown) (unknown) (unknown) (no date) (unknown) (unknown) stenosis at L5 -S1. She is seen by Dr. Licona with Orthopedic spine surgery and (units unknown) (unknown) (unknown) (no date) (unknown) (unknown) stenosis, wors e at L4-5 and L5-S1. There is also bilateral neural foraminal (units unknown) (unknown) (unknown) (no date) (unknown) (unknown) therapeutic in jections and surgery. The risks, consequences, alternatives and (units unknown) (unknown) (unknown) (no date) (unknown) (unknown) therapy. ?A re ferral was provided for the patient. [] (units unknown) (unknown) (unknown) (no date) (unknown) (unknown) ures.??Mild?re active?s ignal?throughout?the?e ndplates?of?the?lumbar ?and?lower?tho (units unknown) (unknown) (unknown) (no date) (unknown) (unknown) wait for surge ry until after consultation with pain management. (units unknown) (unknown) (unknown) (no date) (unknown) (unknown) walking intact . Tandem gait normal without evidence of ataxia. Lower quarter (units unknown) (unknown) (unknown) (no date) (unknown) (unknown) was felt to be a surgical candidate for laminectomy at L4-5. Patient elected to (units unknown) (unknown) (unknown) (no date) (unknown) (unknown) well as treatm ent options including medications, physical therapy/exercise, (units unknown) (unknown) (unknown) (no date) (unknown) (unknown) with future tr eatment planning. [] (units unknown) (unknown) Result panel 4 (unknown) (no date) (unknown) (unknown) (no value) (units unknown) (unknown) (unknown) (no date) (unknown) (unknown) (0=absent, 1=s light response, 2=brisk/normal, 3=very brisk, 4=clonus) (units unknown) (unknown) (unknown) (no date) (unknown) (unknown) (segments are from the International Standards for Neurological Classification (units unknown) (unknown) (unknown) (no date) (unknown) (unknown) - Activity: Co ntinue activity as tolerated. [] (units unknown) (unknown) (unknown) (no date) (unknown) (unknown) - Chiropractor , acupuncture[] (units unknown) (unknown) (unknown) (no date) (unknown) (unknown) - Continues cl inician directed home exercise program including exercises learned (units unknown) (unknown) (unknown) (no date) (unknown) (unknown) - Education: C auda equina and associated symptoms, including motor weakness, (units unknown) (unknown) (unknown) (no date) (unknown) (unknown) - FADIR: [(-/+ ) on the R side / L side / bilaterally] (units unknown) (unknown) (unknown) (no date) (unknown) (unknown) - Follow-up: [] (uni ts unknown) (unknown) (unknown) (no date) (unknown) (unknown) - Hip ROM is: [WNL / limited and painful on the R sided / L side / bilaterally] (units unknown) (unknown) (unknown) (no date) (unknown) (unknown) - I discussed risks, benefits and side effects. Additionally, patient was (units unknown) (unknown) (unknown) (no date) (unknown) (unknown) - Imaging: No new imaging indicated at this time. [] (units unknown) (unknown) (unknown) (no date) (unknown) (unknown) - Interventional/Surgica l procedures: None indicated at this time. [] (units unknown) (unknown) (unknown) (no date) (unknown) (unknown) - Lumbar facet loading: [(-/+) on the R side / L side / bilaterally] (units unknown) (unknown) (unknown) (no date) (unknown) (unknown) - Medications: No new prescription at this time. Patient will continue current (units unknown) (unknown) (unknown) (no date) (unknown) (unknown) - Medications: acetaminophen, NSAIDS, neuropathics, muscle relaxants [] (units unknown) (unknown) (unknown) (no date) (unknown) (unknown) - Physical The rapy: Completed 6 week course in the last 6 months OR Patient (units unknown) (unknown) (unknown) (no date) (unknown) (unknown) - Physical therapy/modalities/DME : Patient will likely benefit from physical (units unknown) (unknown) (unknown) (no date) (unknown) (unknown) - Prescription provided and uptitration instructions given if necessary. [] (units unknown) (unknown) (unknown) (no date) (unknown) (unknown) - Previous [] on [] provided []% relief of pain for the expected duration of the (units unknown) (unknown) (unknown) (no date) (unknown) (unknown) - Referrals: N one indicated at this time. [] (units unknown) (unknown) (unknown) (no date) (unknown) (unknown) - SIJ provocat ion testing: [ (+/-) Kristen's finger test, posterior thrust, (units unknown) (unknown) (unknown) (no date) (unknown) (unknown) - Straight Leg Raise: [(-/+) on the L side / R side / bilaterally] (units unknown) (unknown) (unknown) (no date) (unknown) (unknown) [id number] (units unknown) (unknown) (unknown) (no date) (unknown) (unknown) 10/16/22 [Hist ory Confirmed 10/16/22] (units unknown) (unknown) (unknown) (no date) (unknown) (unknown) 10/16/22 (units unknown) (unknown) (unknown) (no date) (unknown) (unknown) 10/16/22] (units unknown) (unknown) (unknown) (no date) (unknown) (unknown) 1.?Multilevel? degenera tive?disc?and?facet?di sease,?as?well?as?liga mentum?flavum? (units unknown) (unknown) (unknown) (no date) (unknown) (unknown) 1.Limited?rang e?of?mot ion?and?multilevel?lum bar?spine?spondylosis, ?most?notably? (units unknown) (unknown) (unknown) (no date) (unknown) (unknown) 15:37??? (units unknown) (unknown) (unknown) (no date) (unknown) (unknown) 2.?Multilevel? canal?st enoses,?worst?at?L4-L5 ?where?there?is?severe ?canal?stenosi (units unknown) (unknown) (unknown) (no date) (unknown) (unknown) ,?14:34. (uni ts unknown) (unknown) (unknown) (no date) (unknown) (unknown) 3.?Multilevel? foramina l?stenoses,?worst?at?L 5-S1?where?there?is?as sociated?intra (units unknown) (unknown) (unknown) (no date) (unknown) (unknown) 4.??Left?iliop soas?mus ronald?atrophy.?? (units unknown) (unknown) (unknown) (no date) (unknown) (unknown) ? Inspection - ? No gross appendicular or axial deformities (units unknown) (unknown) (unknown) (no date) (unknown) (unknown) ? Palpation -? [Tender to palpation of / No tenderness to palpation] (units unknown) (unknown) (unknown) (no date) (unknown) (unknown) ? ROM - [Lumba r flexion/ extension/ lateral rotation is limited due to pain / (units unknown) (unknown) (unknown) (no date) (unknown) (unknown) ? Special tests (uni ts unknown) (unknown) (unknown) (no date) (unknown) (unknown) ?09/20/2022?at?15:01 (units unknown) (unknown) (unknown) (no date) (unknown) (unknown) ??5?lumbar?typ e?verteb ral?bodies?are?present ?by?plain?film.??There ?is?loss?of?no (units unknown) (unknown) (unknown) (no date) (unknown) (unknown) ??5?nonrib-viviana ring?bre tebrae?are?present.??3 ?mm?retrolisthesis?L2- L3,?L3-L4?and? (units unknown) (unknown) (unknown) (no date) (unknown) (unknown) ??5?views?of?t he?lumba r?spine?acquired,?incl uding?flexion?and?exte nsion?views.? (units unknown) (unknown) (unknown) (no date) (unknown) (unknown) ? Acetaminophen (units unknown) (unknown) (unknown) (no date) (unknown) (unknown) ? Antidepressants -current (units unknown) (unknown) (unknown) (no date) (unknown) (unknown) ? Antiepileptics -current (units unknown) (unknown) (unknown) (no date) (unknown) (unknown) ? Mu scle Relaxants -cyclobenzaprine (units unknown) (unknown) (unknown) (no date) (unknown) (unknown) ? NS AIDs -current (units unknown) (unknown) (unknown) (no date) (unknown) (unknown) ? Opioids (units unknown) (unknown) (unknown) (no date) (unknown) (unknown) ? Steroids (units unknown) (unknown) (unknown) (no date) (unknown) (unknown) ? Topicals (units unknown) (unknown) (unknown) (no date) (unknown) (unknown) ???Transcribed?by:?J C (units unknown) (unknown) (unknown) (no date) (unknown) (unknown) ??Conus?medull cade?ter minates?at?the?lower?L 1?level.??Visualized?c ord?demonstrat (units unknown) (unknown) (unknown) (no date) (unknown) (unknown) ??Marrow?is?of ?normal? overall?signal.??No?ac [place]?vertebral?body?com pression?fract (units unknown) (unknown) (unknown) (no date) (unknown) (unknown) ??Moderate?dis c?desicc ation.??Mild?disc?heig ht?loss?and?diffuse?di sc?bulge.??Mil (units unknown) (unknown) (unknown) (no date) (unknown) (unknown) ??Moderate?dis c?desicc ation.??Mild?disc?heig ht?loss?and?diffuse?di sc?bulge.??Mod (units unknown) (unknown) (unknown) (no date) (unknown) (unknown) ??Moderate?dis c?height ?loss?and?desiccation. ??Mild?diffuse?disc?bu lge.??Mild?fac (units unknown) (unknown) (unknown) (no date) (unknown) (unknown) ??Moderate?dis c?height ?loss?and?desiccation. ??No?significant?canal ,?or?foraminal (units unknown) (unknown) (unknown) (no date) (unknown) (unknown) ??No?paraverte bral?mas ses.??There?is?asymmet david?left?ileo?psoas?at rophy. (units unknown) (unknown) (unknown) (no date) (unknown) (unknown) ??Overlying?israel wel?gas? pattern?is?normal.??No ?suspicious?soft?tissu e?calcificatio (units unknown) (unknown) (unknown) (no date) (unknown) (unknown) ??[facility],?CR,?XR?LUMBAR?SPIN E?WITH?FLEXION?EXTENSI ON?5?VIEWS,?1/ (units unknown) (unknown) (unknown) (no date) (unknown) (unknown) ??There?is?sanchez ited?ran ge?of?motion,?with?pre served?normal?alignmen t.?? (units unknown) (unknown) (unknown) (no date) (unknown) (unknown) ?and?L5?on?S1. (unit s unknown) (unknown) (unknown) (no date) (unknown) (unknown) ?at?the?L5-S1? level.?? Moderate?facet?petros (units unknown) (unknown) (unknown) (no date) (unknown) (unknown) ?canal?stenosi s.??Mode rate?bilateral?foramin al?stenosis. (units unknown) (unknown) (unknown) (no date) (unknown) (unknown) ?foraminal?james nosis?wi th?bilateral?L5?nerve? root?compression. (units unknown) (unknown) (unknown) (no date) (unknown) (unknown) ?stenosis. (units unknown) (unknown) (unknown) (no date) (unknown) (unknown) ?subarticular? foramina l?stenosis?bilaterally . (units unknown) (unknown) (unknown) (no date) (unknown) (unknown) Accompanied by : Self / Same As Patient (units unknown) (unknown) (unknown) (no date) (unknown) (unknown) Age/Sex: 67 / F Date of Service: (units unknown) (unknown) (unknown) (no date) (unknown) (unknown) Aggravating fa ctors include: (units unknown) (unknown) (unknown) (no date) (unknown) (unknown) Alignment?and? [place]: (units unknown) (unknown) (unknown) (no date) (unknown) (unknown) All other syst ems reviewed and are unremarkable except as noted in HPI. (units unknown) (unknown) (unknown) (no date) (unknown) (unknown) Allergies (units unknown) (unknown) (unknown) (no date) (unknown) (unknown) Amitriptyline 10 mg (units unknown) (unknown) (unknown) (no date) (unknown) (unknown) [place] [address] (units unknown) (unknown) (unknown) (no date) (unknown) (unknown) Assessment + Plan (u nits unknown) (unknown) (unknown) (no date) (unknown) (unknown) Assessment: (units unknown) (unknown) (unknown) (no date) (unknown) (unknown) Attending Dr: Robin Morel MD (units unknown) (unknown) (unknown) (no date) (unknown) (unknown) [employer]going (units unknown) (unknown) (unknown) (no date) (unknown) (unknown) Bilateral?hip? arthropl asties?incompletely?vi sualized. (units unknown) (unknown) (unknown) (no date) (unknown) (unknown) Bone?Marrow: (units unknown) (unknown) (unknown) (no date) (unknown) (unknown) Bones: (units unknown) (unknown) (unknown) (no date) (unknown) (unknown) Bowel and blad jonah: No loss of control (units unknown) (unknown) (unknown) (no date) (unknown) (unknown) COMPARISON: (units unknown) (unknown) (unknown) (no date) (unknown) (unknown) COMPARISON:??None. ( units unknown) (unknown) (unknown) (no date) (unknown) (unknown) Cardiovascular : No edema or cyanosis. 2+ peripheral pulses (units unknown) (unknown) (unknown) (no date) (unknown) (unknown) Chart review: (units unknown) (unknown) (unknown) (no date) (unknown) (unknown) Judi is a 67-year-old female with a history of chronic low back pain, lumbar (units unknown) (unknown) (unknown) (no date) (unknown) (unknown) Chief Complaint (uni ts unknown) (unknown) (unknown) (no date) (unknown) (unknown) Chief Complain t: Low back and leg pain (units unknown) (unknown) (unknown) (no date) (unknown) (unknown) Clonus None None (un its unknown) (unknown) (unknown) (no date) (unknown) (unknown) Confirmed 10/16/22] (units unknown) (unknown) (unknown) (no date) (unknown) (unknown) Conservative management includes: (units unknown) (unknown) (unknown) (no date) (unknown) (unknown) Continue [facility] physical therapy. [] (units unknown) (unknown) (unknown) (no date) (unknown) (unknown) Continue home exercise program. [] (units unknown) (unknown) (unknown) (no date) (unknown) (unknown) : 7 Acct:[id number] (units unknown) (unknown) (unknown) (no date) (unknown) (unknown) Denies recent trauma, fever or weight loss of unknown origin, immunocompromise (units unknown) (unknown) (unknown) (no date) (unknown) (unknown) Dept at . (units unknown) (unknown) (unknown) (no date) (unknown) (unknown) Details: (units unknown) (unknown) (unknown) (no date) (unknown) (unknown) Diclofenac 75 mg (un its unknown) (unknown) (unknown) (no date) (unknown) (unknown) Documented By: Robin Morel MD 10/15/22 1511 (units unknown) (unknown) (unknown) (no date) (unknown) (unknown) Draft (units unknown) (unknown) (unknown) (no date) (unknown) (unknown) Exam Narrative (unit s unknown) (unknown) (unknown) (no date) (unknown) (unknown) Exam Narrative: (uni ts unknown) (unknown) (unknown) (no date) (unknown) (unknown) Exam (units unknown) (unknown) (unknown) (no date) (unknown) (unknown) Fay [facility] n's, Pelvic rocking on the R/L side / bilaterally] (units unknown) (unknown) (unknown) (no date) (unknown) (unknown) FINDINGS:?? (units unknown) (unknown) (unknown) (no date) (unknown) (unknown) Flexion/extension: ( units unknown) (unknown) (unknown) (no date) (unknown) (unknown) Gait/Station - [Non-antalgic gait. Heel (L5 strength) and toe (S1 strength) (units unknown) (unknown) (unknown) (no date) (unknown) (unknown) General: Well-nourished, well-developed, [sex] in no acute distress (units unknown) (unknown) (unknown) (no date) (unknown) (unknown) HPI (units unknown) (unknown) (unknown) (no date) (unknown) (unknown) IMPRESSION:?? (units unknown) (unknown) (unknown) (no date) (unknown) (unknown) INDICATIONS:?? lumbar?p ain (units unknown) (unknown) (unknown) (no date) (unknown) (unknown) INDICATIONS:??pain ( units unknown) (unknown) (unknown) (no date) (unknown) (unknown) Image?quality: ??Excell ent.?? (units unknown) (unknown) (unknown) (no date) (unknown) (unknown) Injections: (units unknown) (unknown) (unknown) (no date) (unknown) (unknown) Intake Clinical Staf f (units unknown) (unknown) (unknown) (no date) (unknown) (unknown) Intake Note: (units unknown) (unknown) (unknown) (no date) (unknown) (unknown) Intake perform ed by: Gisselle Gastelum (units unknown) (unknown) (unknown) (no date) (unknown) (unknown) Intake (units unknown) (unknown) (unknown) (no date) (unknown) (unknown) Intervention: Date: Outcome: (units unknown) (unknown) (unknown) (no date) (unknown) (unknown) Is patient in pain?: Yes Pain scale (1-10): 6 (units unknown) (unknown) (unknown) (no date) (unknown) (unknown) JUSTIFICATION OF MEDICAL NECESSITY (units unknown) (unknown) (unknown) (no date) (unknown) (unknown) L-spine/T-spin e/C-spin e MRI ordered to better delineate the anatomy and help (units unknown) (unknown) (unknown) (no date) (unknown) (unknown) L1-L2: (units unknown) (unknown) (unknown) (no date) (unknown) (unknown) L2 Hip Flexion 5/5 5/5? (units unknown) (unknown) (unknown) (no date) (unknown) (unknown) L2-L3: (units unknown) (unknown) (unknown) (no date) (unknown) (unknown) L3 Knee Extens ion 5/5 5/5 (units unknown) (unknown) (unknown) (no date) (unknown) (unknown) L3-L4: (units unknown) (unknown) (unknown) (no date) (unknown) (unknown) L4 Ankle Dorsi flexion 5/5 5/5 (units unknown) (unknown) (unknown) (no date) (unknown) (unknown) L4 Patella 2+ 2 (uni ts unknown) (unknown) (unknown) (no date) (unknown) (unknown) L4-L5: (units unknown) (unknown) (unknown) (no date) (unknown) (unknown) L5 Long Toe Ex tension 5/5 5/5 (units unknown) (unknown) (unknown) (no date) (unknown) (unknown) L5-S1.??Multil evel?dis c?height?loss?with?end plate?sclerosis?and?sp urring,?severe (units unknown) (unknown) (unknown) (no date) (unknown) (unknown) L5-S1: (units unknown) (unknown) (unknown) (no date) (unknown) (unknown) Loc: PAIN (units unknown) (unknown) (unknown) (no date) (unknown) (unknown) Lyrica 150 mg (units unknown) (unknown) (unknown) (no date) (unknown) (unknown) MSK: System re viewed and no additional complaints, except as documented. (units unknown) (unknown) (unknown) (no date) (unknown) (unknown) Medications (units unknown) (unknown) (unknown) (no date) (unknown) (unknown) Medications: (units unknown) (unknown) (unknown) (no date) (unknown) (unknown) Morphine Aller gy (Mild, Uncoded 10/16/22 13:06) (units unknown) (unknown) (unknown) (no date) (unknown) (unknown) Motor (units unknown) (unknown) (unknown) (no date) (unknown) (unknown) Musculoskeletal: (un its unknown) (unknown) (unknown) (no date) (unknown) (unknown) Neuro: System reviewed and no additional complaints, except as documented. (units unknown) (unknown) (unknown) (no date) (unknown) (unknown) Neurologic: (units unknown) (unknown) (unknown) (no date) (unknown) (unknown) Noncontrast?sa gittal?T 1?spin?echo?and?T2?fas t?echo,?sagittal?STIR, ?and?T2?fast?s (units unknown) (unknown) (unknown) (no date) (unknown) (unknown) Not indicated at this time. 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 SPINE?WITHOUT?CONTRAST (units unknown) (unknown) (unknown) (no date) (unknown) (unknown) PROCEDURE:??XR ?LUMBAR? SPINE?WITH?FLEXION?EXT ENSION?5?VIEWS (units unknown) (unknown) (unknown) (no date) (unknown) (unknown) PT:[facility] (u nits unknown) (unknown) (unknown) (no date) (unknown) (unknown) Pain Scale (units unknown) (unknown) (unknown) (no date) (unknown) (unknown) Pain Visit (units unknown) (unknown) (unknown) (no date) (unknown) (unknown) Pain location/Radiation: (units unknown) (unknown) (unknown) (no date) (unknown) (unknown) Pain rating: / 10 today, /10 at worst (units unknown) (unknown) (unknown) (no date) (unknown) (unknown) Paraspinous?So ft?Tissu es: (units unknown) (unknown) (unknown) (no date) (unknown) (unknown) Patient will r eturn for []. Risks and benefits were discussed. (units unknown) (unknown) (unknown) (no date) (unknown) (unknown) Patient's pain has been present for >6 weeks and is an average of >6/10 on 0-10 (units unknown) (unknown) (unknown) (no date) (unknown) (unknown) Patient: Judi Aguilar MR#: [id number] (units unknown) (unknown) (unknown) (no date) (unknown) (unknown) Penicillins Al lergy (Verified 10/16/22 13:06) (units unknown) (unknown) (unknown) (no date) (unknown) (unknown) Pertinent medi cations include: (units unknown) (unknown) (unknown) (no date) (unknown) (unknown) Plan (units unknown) (unknown) (unknown) (no date) (unknown) (unknown) Plan/Recommendations : (units unknown) (unknown) (unknown) (no date) (unknown) (unknown) Prescriptions Written: [] (units unknown) (unknown) (unknown) (no date) (unknown) (unknown) Previous pain treatments included: (units unknown) (unknown) (unknown) (no date) (unknown) (unknown) Psych: Appropr iate affect, answers questions appropriately (units unknown) (unknown) (unknown) (no date) (unknown) (unknown) Quality and ti alirio of pain: (units unknown) (unknown) (unknown) (no date) (unknown) (unknown) LUISA?on?07/24?at ?14:50?Approved?by: ?Leonel?Luisa?Clayton?on ?07/24/2022?at? (units unknown) (unknown) (unknown) (no date) (unknown) (unknown) ROS Narrative (units unknown) (unknown) (unknown) (no date) (unknown) (unknown) ROS Narrative: (unit s unknown) (unknown) (unknown) (no date) (unknown) (unknown) ROS (units unknown) (unknown) (unknown) (no date) (unknown) (unknown) Rash (units unknown) (unknown) (unknown) (no date) (unknown) (unknown) Reason For Visit (un its unknown) (unknown) (unknown) (no date) (unknown) (unknown) Red flag symptoms: ( units unknown) (unknown) (unknown) (no date) (unknown) (unknown) Reflex Right Left (u nits unknown) (unknown) (unknown) (no date) (unknown) (unknown) Reflexes: (units unknown) (unknown) (unknown) (no date) (unknown) (unknown) Relieving fact ors include: (units unknown) (unknown) (unknown) (no date) (unknown) (unknown) Respiratory: Non-labored breathing pattern on RA. No respiratory distress (units unknown) (unknown) (unknown) (no date) (unknown) (unknown) Reviewed?by:?J eff?Chof fel?RRA?Interpreted:?Luther eric?Luisa??on?07/24?at?14:49 (units unknown) (unknown) (unknown) (no date) (unknown) (unknown) Reviewed?by:?Johnathon lutz?Kyle,?M.D.?on?09/20/2022 ?at?14:57???Transcribe d?by:?CANNON?on (units unknown) (unknown) (unknown) (no date) (unknown) (unknown) S1 Achilles 2+ 2 (un its unknown) (unknown) (unknown) (no date) (unknown) (unknown) S1 Ankle Plantarflexion 5/5 5/5 (units unknown) (unknown) (unknown) (no date) (unknown) (unknown) Saddle anesthe kelby: denies (units unknown) (unknown) (unknown) (no date) (unknown) (unknown) Segment Action Right Left (units unknown) (unknown) (unknown) (no date) (unknown) (unknown) Segment Reflex Right Left (units unknown) (unknown) (unknown) (no date) (unknown) (unknown) Sensory -? Int act to light touch of bilateral lower extremities. Allodynia (units unknown) (unknown) (unknown) (no date) (unknown) (unknown) Signed By: (units unknown) (unknown) (unknown) (no date) (unknown) (unknown) Skin: No appre ciable rashes or skin breakdown (units unknown) (unknown) (unknown) (no date) (unknown) (unknown) Smoking Status : Never smoker (units unknown) (unknown) (unknown) (no date) (unknown) (unknown) Soft?tissues: (units unknown) (unknown) (unknown) (no date) (unknown) (unknown) Spinal?Cord: (units unknown) (unknown) (unknown) (no date) (unknown) (unknown) Standing: (units unknown) (unknown) (unknown) (no date) (unknown) (unknown) Surgery: Patie nt is s/p (units unknown) (unknown) (unknown) (no date) (unknown) (unknown) T12-L1: (units unknown) (unknown) (unknown) (no date) (unknown) (unknown) T2?fast?spin?e cho?may? be?performed.?? (units unknown) (unknown) (unknown) (no date) (unknown) (unknown) TECHNIQUE: (units unknown) (unknown) (unknown) (no date) (unknown) (unknown) TECHNIQUE:?? (units unknown) (unknown) (unknown) (no date) (unknown) (unknown) [facility] (units unknown) (unknown) (unknown) (no date) (unknown) (unknown) This note may have been all or partially generated using voice recognition (units unknown) (unknown) (unknown) (no date) (unknown) (unknown) Tobacco + Subs tance Use (units unknown) (unknown) (unknown) (no date) (unknown) (unknown) Tobacco Status (unit s unknown) (unknown) (unknown) (no date) (unknown) (unknown) Today I have r eviewed available medical information in the patient's medical (units unknown) (unknown) (unknown) (no date) (unknown) (unknown) Upper Motor Ne uron Signs: (units unknown) (unknown) (unknown) (no date) (unknown) (unknown) 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 (units unknown) (unknown) (unknown) (no date) (unknown) (unknown) We reviewed et iology, predisposing factor(s), natural course, imaging results as (units unknown) (unknown) (unknown) (no date) (unknown) (unknown) Weakness: denies (un its unknown) (unknown) (unknown) (no date) (unknown) (unknown) X-ray has been performed which is consistent with lumbar spondylosis, most (units unknown) (unknown) (unknown) (no date) (unknown) (unknown) [History Confi rmed 10/16/22] (units unknown) (unknown) (unknown) (no date) (unknown) (unknown) acetaminophen 500 mg tablet (Tylenol Extra Strength) 500 mg PO Q6H PRN 10/16/22 (units unknown) (unknown) (unknown) (no date) (unknown) (unknown) albuterol sulf ate 90 mcg/actuation aerosol inhaler 2 puff inhalation Q6H PRN (units unknown) (unknown) (unknown) (no date) (unknown) (unknown) amitriptyline 10 mg tablet 10 mg PO BEDTIME 10/16/22 [History Confirmed (units unknown) (unknown) (unknown) (no date) (unknown) (unknown) at?the?L5-S1?level. (units unknown) (unknown) (unknown) (no date) (unknown) (unknown) benefits of va rious treatment options were discussed with the patient in great (units unknown) (unknown) (unknown) (no date) (unknown) (unknown) bowel/bladder dysfunction, and perineal numbness were discussed. The patient was (units unknown) (unknown) (unknown) (no date) (unknown) (unknown) cannot tolerat e physical therapy at the current time due to the intensity of the (units unknown) (unknown) (unknown) (no date) (unknown) (unknown) cyclobenzaprin e 10 mg tablet 10 mg PO BEDTIME 10/16/22 [History Confirmed (units unknown) (unknown) (unknown) (no date) (unknown) (unknown) d?facet?and?li gamentum ?flavum?hypertrophy.?? Mild?epidural?lipomato sis.??Moderate (units unknown) (unknown) (unknown) (no date) (unknown) (unknown) detail. (units unknown) (unknown) (unknown) (no date) (unknown) (unknown) diclofenac sod ium 75 mg tablet,delayed release 75 mg PO BID PRN 10/16/22 (units unknown) (unknown) (unknown) (no date) (unknown) (unknown) enosis.??Mild? bilatera l?foraminal?stenosis. (units unknown) (unknown) (unknown) (no date) (unknown) (unknown) erate?facet?an d?ligame ntum?flavum?hypertroph y.??Severe?canal?steno sis.??Moderate (units unknown) (unknown) (unknown) (no date) (unknown) (unknown) es?normal?sign al?and?s ize.?? (units unknown) (unknown) (unknown) (no date) (unknown) (unknown) et?and?ligamen jolly?flav um?hypertrophy.??Mild? canal?stenosis.??Sever e?bilateral (units unknown) (unknown) (unknown) (no date) (unknown) (unknown) et?and?ligamen jolly?flav um?hypertrophy.??Mild? epidural?lipomatosis.? ?Mild?canal?st (units unknown) (unknown) (unknown) (no date) (unknown) (unknown) et?and?ligamen jolly?flav um?hypertrophy.??Moder ate?canal?stenosis.??M ild?bilateral? (units unknown) (unknown) (unknown) (no date) (unknown) (unknown) facet arthropa thy who presents for further evaluation of low back and leg pain. (units unknown) (unknown) (unknown) (no date) (unknown) (unknown) foraminal?nerv e?root?c ompression.?Recommend? correlation?with?clini rashaad?symptoms?t (units unknown) (unknown) (unknown) (no date) (unknown) (unknown) foraminal?stenosis. (units unknown) (unknown) (unknown) (no date) (unknown) (unknown) have occurred. If there are any questions, please contact the Medical Records (units unknown) (unknown) (unknown) (no date) (unknown) (unknown) hypertrophy?an d?epidur al?lipomatosis. (units unknown) (unknown) (unknown) (no date) (unknown) (unknown) improved sleep , improved mobility, etc. (units unknown) (unknown) (unknown) (no date) (unknown) (unknown) in PT. [] (units unknown) (unknown) (unknown) (no date) (unknown) (unknown) instructed to report to the Emergency department, if these symptoms occur. (units unknown) (unknown) (unknown) (no date) (unknown) (unknown) instructed to stop if any side effects. [] (units unknown) (unknown) (unknown) (no date) (unknown) (unknown) intravenous dr ug use, sustained glucocorticoid use, osteoporosis, or a focal (units unknown) (unknown) (unknown) (no date) (unknown) (unknown) local anesthet ic. During that time patient able to participate in ADLs, had (units unknown) (unknown) (unknown) (no date) (unknown) (unknown) loratadine 10 mg tablet (Allergy Relief (loratadine)) 10 mg PO DAILY 10/16/22 (units unknown) (unknown) (unknown) (no date) (unknown) (unknown) may occur. Occ asional wrong-word or 'sound-alike' substitutions may have (units unknown) (unknown) (unknown) (no date) (unknown) (unknown) meds. [] (units unknown) (unknown) (unknown) (no date) (unknown) (unknown) metoprolol suc cinate 25 mg tablet,extended release 24 hr 25 mg PO DAILY 10/16/22 (units unknown) (unknown) (unknown) (no date) (unknown) (unknown) negative, Hype ralgesia - negative (units unknown) (unknown) (unknown) (no date) (unknown) (unknown) neurological d eficit with progressive or disabling symptoms. (units unknown) (unknown) (unknown) (no date) (unknown) (unknown) ns.??Cholecyst ectomy?c lips. (units unknown) (unknown) (unknown) (no date) (unknown) (unknown) nt?arthropathy ?L4-L5?a nd?L5-S1.??No?vertebra l?body?compression?fra ctures.??No?jansen (units unknown) (unknown) (unknown) (no date) (unknown) (unknown) o?ascertain?re levance? of?this?finding.? (units unknown) (unknown) (unknown) (no date) (unknown) (unknown) occurred due t o the inherent limitations of voice recognition software. Please (units unknown) (unknown) (unknown) (no date) (unknown) (unknown) of Spinal Cord Injur y) (units unknown) (unknown) (unknown) (no date) (unknown) (unknown) omeprazole 20 mg capsule,delayed release 20 mg PO DAILY 10/16/22 [History (units unknown) (unknown) (unknown) (no date) (unknown) (unknown) or immunosuppr essive therapy, previous or current cancer diagnosis, history of (units unknown) (unknown) (unknown) (no date) (unknown) (unknown) ower?thoracic?spine. (units unknown) (unknown) (unknown) (no date) (unknown) (unknown) pain. [] (units unknown) (unknown) (unknown) (no date) (unknown) (unknown) pin?echo?throu gh?the?l umbar?spine.??In?cases ?with?scoliosis,?addit ional?coronal? (units unknown) (unknown) (unknown) (no date) (unknown) (unknown) pregabalin 150 mg capsule 150 mg PO BID 10/16/22 [History Confirmed 10/16/22] (units unknown) (unknown) (unknown) (no date) (unknown) (unknown) radiculopathy, lumbar spinal stenosis with neurogenic claudication and lumbar (units unknown) (unknown) (unknown) (no date) (unknown) (unknown) read the note carefully and recognize, using context, where these substitutions (units unknown) (unknown) (unknown) (no date) (unknown) (unknown) record, includ ing relevant provider notes, laboratory work, and imaging. (units unknown) (unknown) (unknown) (no date) (unknown) (unknown) rmal?lumbar?lo rdosis.? ?3?mm?of?retrolisthesi s?of?L1?on?L2,?L2?on?L 3,?L3?on?L4, (units unknown) (unknown) (unknown) (no date) (unknown) (unknown) s.??Moderate?c anal?james nosis?at?L2-L3?and?L3- L4. (units unknown) (unknown) (unknown) (no date) (unknown) (unknown) scale and/or p ain interferes with ADLs. (units unknown) (unknown) (unknown) (no date) (unknown) (unknown) severe at the L5-S1 level. MRI concerning for multilevel central canal (units unknown) (unknown) (unknown) (no date) (unknown) (unknown) software. 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 lesions. ?? (units unknown) (unknown) (unknown) (no date) (unknown) (unknown) stability intact.] ( units unknown) (unknown) (unknown) (no date) (unknown) (unknown) stenosis at L5 -S1. She is seen by Dr. Licona with Orthopedic spine surgery and (units unknown) (unknown) (unknown) (no date) (unknown) (unknown) stenosis, wors e at L4-5 and L5-S1. There is also bilateral neural foraminal (units unknown) (unknown) (unknown) (no date) (unknown) (unknown) therapeutic in jections and surgery. The risks, consequences, alternatives and (units unknown) (unknown) (unknown) (no date) (unknown) (unknown) therapy. ?A re ferral was provided for the patient. [] (units unknown) (unknown) (unknown) (no date) (unknown) (unknown) ures.??Mild?re active?s ignal?throughout?the?e ndplates?of?the?lumbar ?and?l (units unknown) (unknown) (unknown) (no date) (unknown) (unknown) wait for surge ry until after consultation with pain management. (units unknown) (unknown) (unknown) (no date) (unknown) (unknown) walking intact . Tandem gait normal without evidence of ataxia. Lower quarter (units unknown) (unknown) (unknown) (no date) (unknown) (unknown) was felt to be a surgical candidate for laminectomy at L4-5. Patient elected to (units unknown) (unknown) (unknown) (no date) (unknown) (unknown) well as treatm ent options including medications, physical therapy/exercise, (units unknown) (unknown) (unknown) (no date) (unknown) (unknown) with future tr eatment planning. [] (units unknown) (unknown) Result panel 5 (unknown) (no date) (unknown) (unknown) (no value) (units unknown) (unknown) (unknown) (no date) (unknown) (unknown) (0=absent, 1=s light response, 2=brisk/normal, 3=very brisk, 4=clonus) (units unknown) (unknown) (unknown) (no date) (unknown) (unknown) (segments are from the International Standards for Neurological Classification (units unknown) (unknown) (unknown) (no date) (unknown) (unknown) - Activity: Co ntinue activity as tolerated. [] (units unknown) (unknown) (unknown) (no date) (unknown) (unknown) - Chiropractor , acupuncture[] (units unknown) (unknown) (unknown) (no date) (unknown) (unknown) - Continues cl inician directed home exercise program including exercises learned (units unknown) (unknown) (unknown) (no date) (unknown) (unknown) - Education: C auda equina and associated symptoms, including motor weakness, (units unknown) (unknown) (unknown) (no date) (unknown) (unknown) - FADIR: [(-/+ ) on the R side / L side / bilaterally] (units unknown) (unknown) (unknown) (no date) (unknown) (unknown) - Follow-up: [] (uni ts unknown) (unknown) (unknown) (no date) (unknown) (unknown) - Hip ROM is: [WNL / limited and painful on the R sided / L side / bilaterally] (units unknown) (unknown) (unknown) (no date) (unknown) (unknown) - I discussed risks, benefits and side effects. Additionally, patient was (units unknown) (unknown) (unknown) (no date) (unknown) (unknown) - Imaging: No new imaging indicated at this time. [] (units unknown) (unknown) (unknown) (no date) (unknown) (unknown) - Interventional/Surgica l procedures: None indicated at this time. [] (units unknown) (unknown) (unknown) (no date) (unknown) (unknown) - Lumbar facet loading: [(-/+) on the R side / L side / bilaterally] (units unknown) (unknown) (unknown) (no date) (unknown) (unknown) - Medications: No new prescription at this time. Patient will continue current (units unknown) (unknown) (unknown) (no date) (unknown) (unknown) - Medications: acetaminophen, NSAIDS, neuropathics, muscle relaxants [] (units unknown) (unknown) (unknown) (no date) (unknown) (unknown) - Physical The rapy: Completed 6 week course in the last 6 months OR Patient (units unknown) (unknown) (unknown) (no date) (unknown) (unknown) - Physical therapy/modalities/DME : Patient will likely benefit from physical (units unknown) (unknown) (unknown) (no date) (unknown) (unknown) - Prescription provided and uptitration instructions given if necessary. [] (units unknown) (unknown) (unknown) (no date) (unknown) (unknown) - Previous [] on [] provided []% relief of pain for the expected duration of the (units unknown) (unknown) (unknown) (no date) (unknown) (unknown) - Referrals: N one indicated at this time. [] (units unknown) (unknown) (unknown) (no date) (unknown) (unknown) - SIJ provocat ion testing: [ (+/-) Kristen's finger test, posterior thrust, (units unknown) (unknown) (unknown) (no date) (unknown) (unknown) - Straight Leg Raise: [(-/+) on the L side / R side / bilaterally] (units unknown) (unknown) (unknown) (no date) (unknown) (unknown) [id number] (units unknown) (unknown) (unknown) (no date) (unknown) (unknown) 10/16/22 [Hist ory Confirmed 10/16/22] (units unknown) (unknown) (unknown) (no date) (unknown) (unknown) 10/16/22 (units unknown) (unknown) (unknown) (no date) (unknown) (unknown) 10/16/22] (units unknown) (unknown) (unknown) (no date) (unknown) (unknown) 1.?Multilevel? degenera tive?disc?and?facet?di sease,?as?well?as?liga mentum?flavum? (units unknown) (unknown) (unknown) (no date) (unknown) (unknown) 1.Limited?rang e?of?mot ion?and?multilevel?lum bar?spine?spondylosis, ?most?notably? (units unknown) (unknown) (unknown) (no date) (unknown) (unknown) 13:16 (units unknown) (unknown) (unknown) (no date) (unknown) (unknown) 2.?Multilevel? canal?st enoses,?worst?at?L4-L5 ?where?there?is?severe ?canal?stenosi (units unknown) (unknown) (unknown) (no date) (unknown) (unknown) ,?14:34. (uni ts unknown) (unknown) (unknown) (no date) (unknown) (unknown) 3.?Multilevel? foramina l?stenoses,?worst?at?L 5-S1?where?there?is?as sociated?intra (units unknown) (unknown) (unknown) (no date) (unknown) (unknown) 4.??Left?iliop soas?mus ronald?atrophy.?? (units unknown) (unknown) (unknown) (no date) (unknown) (unknown) ? Inspection - ? No gross appendicular or axial deformities (units unknown) (unknown) (unknown) (no date) (unknown) (unknown) ? Palpation -? [Tender to palpation of / No tenderness to palpation] (units unknown) (unknown) (unknown) (no date) (unknown) (unknown) ? ROM - [Lumba r flexion/ extension/ lateral rotation is limited due to pain / (units unknown) (unknown) (unknown) (no date) (unknown) (unknown) ? Special tests (uni ts unknown) (unknown) (unknown) (no date) (unknown) (unknown) ?09/20/2022?at?15:01 (units unknown) (unknown) (unknown) (no date) (unknown) (unknown) ??5?lumbar?typ e?verteb ral?bodies?are?present ?by?plain?film.??There ?is?loss?of?no (units unknown) (unknown) (unknown) (no date) (unknown) (unknown) ??5?nonrib-viviana ring?bre tebrae?are?present.??3 ?mm?retrolisthesis?L2- L3,?L3-L4?and? (units unknown) (unknown) (unknown) (no date) (unknown) (unknown) ??5?views?of?t he?lumba r?spine?acquired,?incl uding?flexion?and?exte nsion?views.? (units unknown) (unknown) (unknown) (no date) (unknown) (unknown) ? Acetaminophen (units unknown) (unknown) (unknown) (no date) (unknown) (unknown) ? Antidepressants -current (units unknown) (unknown) (unknown) (no date) (unknown) (unknown) ? Antiepileptics -current (units unknown) (unknown) (unknown) (no date) (unknown) (unknown) ? Mu scle Relaxants -cyclobenzaprine (units unknown) (unknown) (unknown) (no date) (unknown) (unknown) ? NS AIDs -current (units unknown) (unknown) (unknown) (no date) (unknown) (unknown) ? Opioids (units unknown) (unknown) (unknown) (no date) (unknown) (unknown) ? Steroids (units unknown) (unknown) (unknown) (no date) (unknown) (unknown) ? Topicals (units unknown) (unknown) (unknown) (no date) (unknown) (unknown) ???Transcribed ?by:?DIANA MORAN?on?07/24/2022?at ?14:50?Approved?by: ?Leonel (units unknown) (unknown) (unknown) (no date) (unknown) (unknown) ??Conus?medull cade?ter minates?at?the?lower?L 1?level.??Visualized?c ord?demonstrat (units unknown) (unknown) (unknown) (no date) (unknown) (unknown) ??Marrow?is?of ?normal? overall?signal.??No?ac [place]?vertebral?body?com pression?fract (units unknown) (unknown) (unknown) (no date) (unknown) (unknown) ??Moderate?dis c?desicc ation.??Mild?disc?heig ht?loss?and?diffuse?di sc?bulge.??Mil (units unknown) (unknown) (unknown) (no date) (unknown) (unknown) ??Moderate?dis c?desicc ation.??Mild?disc?heig ht?loss?and?diffuse?di sc?bulge.??Mod (units unknown) (unknown) (unknown) (no date) (unknown) (unknown) ??Moderate?dis c?height ?loss?and?desiccation. ??Mild?diffuse?disc?bu lge.??Mild?fac (units unknown) (unknown) (unknown) (no date) (unknown) (unknown) ??Moderate?dis c?height ?loss?and?desiccation. ??No?significant?canal ,?or?foraminal (units unknown) (unknown) (unknown) (no date) (unknown) (unknown) ??No?paraverte bral?mas ses.??There?is?asymmet david?left?ileo?psoas?at rophy. (units unknown) (unknown) (unknown) (no date) (unknown) (unknown) ??Overlying?israel wel?gas? pattern?is?normal.??No ?suspicious?soft?tissu e?calcificatio (units unknown) (unknown) (unknown) (no date) (unknown) (unknown) ??[facility],?CR,?XR?LUMBAR?SPIN E?WITH?FLEXION?EXTENSI ON?5?VIEWS,?1/ (units unknown) (unknown) (unknown) (no date) (unknown) (unknown) ??There?is?sanchez ited?ran ge?of?motion,?with?pre served?normal?alignmen t.?? (units unknown) (unknown) (unknown) (no date) (unknown) (unknown) ?Moran,?M.D.? on?2022?at?15:37??? (units unknown) (unknown) (unknown) (no date) (unknown) (unknown) ?at?the?L5-S1? level.?? Moderate?facet?petros (units unknown) (unknown) (unknown) (no date) (unknown) (unknown) ?canal?stenosi s.??Mode rate?bilateral?foramin al?stenosis. (units unknown) (unknown) (unknown) (no date) (unknown) (unknown) ?stenosis. (units unknown) (unknown) (unknown) (no date) (unknown) (unknown) ?subarticular? foramina l?stenosis?bilaterally . (units unknown) (unknown) (unknown) (no date) (unknown) (unknown) Accompanied by : Self / Same As Patient (units unknown) (unknown) (unknown) (no date) (unknown) (unknown) Age/Sex: 67 / F Date of Service: (units unknown) (unknown) (unknown) (no date) (unknown) (unknown) Aggravating fa ctors include: (units unknown) (unknown) (unknown) (no date) (unknown) (unknown) Alignment?and? [place]: (units unknown) (unknown) (unknown) (no date) (unknown) (unknown) All other syst ems reviewed and are unremarkable except as noted in HPI. (units unknown) (unknown) (unknown) (no date) (unknown) (unknown) Allergies (units unknown) (unknown) (unknown) (no date) (unknown) (unknown) Amitriptyline 10 mg (units unknown) (unknown) (unknown) (no date) (unknown) (unknown) [place] [address] (units unknown) (unknown) (unknown) (no date) (unknown) (unknown) Assessment + Plan (u nits unknown) (unknown) (unknown) (no date) (unknown) (unknown) Assessment: (units unknown) (unknown) (unknown) (no date) (unknown) (unknown) Attending Dr: Robin Morel MD (units unknown) (unknown) (unknown) (no date) (unknown) (unknown) BMI 40.8 (units unknown) (unknown) (unknown) (no date) (unknown) (unknown) BP 156/90 H (units unknown) (unknown) (unknown) (no date) (unknown) (unknown) Erika's Caitlin ngoing Downgoing (units unknown) (unknown) (unknown) (no date) (unknown) (unknown) Bilateral?hip? arthropl asties?incompletely?vi sualized. (units unknown) (unknown) (unknown) (no date) (unknown) (unknown) Blood Pressure Location Rt brachial (units unknown) (unknown) (unknown) (no date) (unknown) (unknown) Bone?Marrow: (units unknown) (unknown) (unknown) (no date) (unknown) (unknown) Bones: (units unknown) (unknown) (unknown) (no date) (unknown) (unknown) Bowel and blad jonah: No loss of control (units unknown) (unknown) (unknown) (no date) (unknown) (unknown) COMPARISON: (units unknown) (unknown) (unknown) (no date) (unknown) (unknown) COMPARISON:??None. ( units unknown) (unknown) (unknown) (no date) (unknown) (unknown) Cardiovascular : No edema or cyanosis. 2+ peripheral pulses (units unknown) (unknown) (unknown) (no date) (unknown) (unknown) Chart review: (units unknown) (unknown) (unknown) (no date) (unknown) (unknown) Judi is a 67-year-old female with a history of chronic low back pain, lumbar (units unknown) (unknown) (unknown) (no date) (unknown) (unknown) Chief Complaint (uni ts unknown) (unknown) (unknown) (no date) (unknown) (unknown) Chief Complain t: Low back and leg pain (units unknown) (unknown) (unknown) (no date) (unknown) (unknown) Clonus None None (un its unknown) (unknown) (unknown) (no date) (unknown) (unknown) Confirmed 10/16/22] (units unknown) (unknown) (unknown) (no date) (unknown) (unknown) Conservative management includes: (units unknown) (unknown) (unknown) (no date) (unknown) (unknown) [facility]. [] (units unknown) (unknown) (unknown) (no date) (unknown) (unknown) Continue home exercise program. [] (units unknown) (unknown) (unknown) (no date) (unknown) (unknown) : 7 Acct:[id number] (units unknown) (unknown) (unknown) (no date) (unknown) (unknown) Denies recent trauma, fever or weight loss of unknown origin, immunocompromise (units unknown) (unknown) (unknown) (no date) (unknown) (unknown) Dept at . (units unknown) (unknown) (unknown) (no date) (unknown) (unknown) Details: (units unknown) (unknown) (unknown) (no date) (unknown) (unknown) Diclofenac 75 mg (un its unknown) (unknown) (unknown) (no date) (unknown) (unknown) Documented By: Robin Morel MD 10/15/22 1511 (units unknown) (unknown) (unknown) (no date) (unknown) (unknown) Draft (units unknown) (unknown) (unknown) (no date) (unknown) (unknown) Exam Narrative (unit s unknown) (unknown) (unknown) (no date) (unknown) (unknown) Exam Narrative: (uni ts unknown) (unknown) (unknown) (no date) (unknown) (unknown) Exam (units unknown) (unknown) (unknown) (no date) (unknown) (unknown) Fay [place] n's, Pelvic rocking on the R/L side / bilaterally] (units unknown) (unknown) (unknown) (no date) (unknown) (unknown) FINDINGS:?? (units unknown) (unknown) (unknown) (no date) (unknown) (unknown) Flexion/extension: ( units unknown) (unknown) (unknown) (no date) (unknown) (unknown) Gait/Station - [Non-antalgic gait. Heel (L5 strength) and toe (S1 strength) (units unknown) (unknown) (unknown) (no date) (unknown) (unknown) General: Well-nourished, well-developed, [sex] in no acute distress (units unknown) (unknown) (unknown) (no date) (unknown) (unknown) HPI (units unknown) (unknown) (unknown) (no date) (unknown) (unknown) Height 5 ft 7 in (un its unknown) (unknown) (unknown) (no date) (unknown) (unknown) IMPRESSION:?? (units unknown) (unknown) (unknown) (no date) (unknown) (unknown) INDICATIONS:?? lumbar?p ain (units unknown) (unknown) (unknown) (no date) (unknown) (unknown) INDICATIONS:??pain ( units unknown) (unknown) (unknown) (no date) (unknown) (unknown) Image?quality: ??Excell ent.?? (units unknown) (unknown) (unknown) (no date) (unknown) (unknown) Injections: (units unknown) (unknown) (unknown) (no date) (unknown) (unknown) Intake Clinical Staf f (units unknown) (unknown) (unknown) (no date) (unknown) (unknown) Intake Note: (units unknown) (unknown) (unknown) (no date) (unknown) (unknown) Intake perform ed by: Gisselle Gastelum (units unknown) (unknown) (unknown) (no date) (unknown) (unknown) Intake (units unknown) (unknown) (unknown) (no date) (unknown) (unknown) Intervention: Date: Outcome: (units unknown) (unknown) (unknown) (no date) (unknown) (unknown) Is patient in pain?: Yes Pain scale (1-10): 6 (units unknown) (unknown) (unknown) (no date) (unknown) (unknown) JUSTIFICATION OF MEDICAL NECESSITY (units unknown) (unknown) (unknown) (no date) (unknown) (unknown) L-spine/T-spin e/C-spin e MRI ordered to better delineate the anatomy and help (units unknown) (unknown) (unknown) (no date) (unknown) (unknown) L1-L2: (units unknown) (unknown) (unknown) (no date) (unknown) (unknown) L2 Hip Flexion 5/5 5/5? (units unknown) (unknown) (unknown) (no date) (unknown) (unknown) L2-L3: (units unknown) (unknown) (unknown) (no date) (unknown) (unknown) L3 Knee Extens ion 5/5 5/5 (units unknown) (unknown) (unknown) (no date) (unknown) (unknown) L3-L4: (units unknown) (unknown) (unknown) (no date) (unknown) (unknown) L4 Ankle Dorsi flexion 5/5 5/5 (units unknown) (unknown) (unknown) (no date) (unknown) (unknown) L4 Patella 2+ 2 (uni ts unknown) (unknown) (unknown) (no date) (unknown) (unknown) L4-L5: (units unknown) (unknown) (unknown) (no date) (unknown) (unknown) L5 Long Toe Ex tension 5/5 5/5 (units unknown) (unknown) (unknown) (no date) (unknown) (unknown) L5-S1.??Multil evel?dis c?height?loss?with?end plate?sclerosis?and?sp urring,?severe (units unknown) (unknown) (unknown) (no date) (unknown) (unknown) L5-S1: (units unknown) (unknown) (unknown) (no date) (unknown) (unknown) Loc: PAIN (units unknown) (unknown) (unknown) (no date) (unknown) (unknown) Lyrica 150 mg (units unknown) (unknown) (unknown) (no date) (unknown) (unknown) MSK: System re viewed and no additional complaints, except as documented. (units unknown) (unknown) (unknown) (no date) (unknown) (unknown) Medications (units unknown) (unknown) (unknown) (no date) (unknown) (unknown) Medications: (units unknown) (unknown) (unknown) (no date) (unknown) (unknown) Morphine Aller gy (Mild, Uncoded 10/16/22 13:06) (units unknown) (unknown) (unknown) (no date) (unknown) (unknown) Motor (units unknown) (unknown) (unknown) (no date) (unknown) (unknown) Musculoskeletal: (un its unknown) (unknown) (unknown) (no date) (unknown) (unknown) Neuro: System reviewed and no additional complaints, except as documented. (units unknown) (unknown) (unknown) (no date) (unknown) (unknown) Neurologic: (units unknown) (unknown) (unknown) (no date) (unknown) (unknown) Noncontrast?sa gittal?T 1?spin?echo?and?T2?fas t?echo,?sagittal?STIR, ?and?T2?fast?s (units unknown) (unknown) (unknown) (no date) (unknown) (unknown) Not indicated at this time. 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 SPINE?WITHOUT?CONTRAST (units unknown) (unknown) (unknown) (no date) (unknown) (unknown) PROCEDURE:??XR ?LUMBAR? SPINE?WITH?FLEXION?EXT ENSION?5?VIEWS (units unknown) (unknown) (unknown) (no date) (unknown) (unknown) PT:TencentidStorrz (u nits unknown) (unknown) (unknown) (no date) (unknown) (unknown) Pain Scale (units unknown) (unknown) (unknown) (no date) (unknown) (unknown) Pain Visit (units unknown) (unknown) (unknown) (no date) (unknown) (unknown) Pain location/Radiation: (units unknown) (unknown) (unknown) (no date) (unknown) (unknown) Pain rating: / 10 today, /10 at worst (units unknown) (unknown) (unknown) (no date) (unknown) (unknown) Paraspinous?So ft?Tissu es: (units unknown) (unknown) (unknown) (no date) (unknown) (unknown) Patient will r eturn for []. Risks and benefits were discussed. (units unknown) (unknown) (unknown) (no date) (unknown) (unknown) Patient's pain has been present for >6 weeks and is an average of >6/10 on 0-10 (units unknown) (unknown) (unknown) (no date) (unknown) (unknown) Patient: Judi Aguilar MR#: [id number] (units unknown) (unknown) (unknown) (no date) (unknown) (unknown) Penicillins Al miangy (Verified 10/16/22 13:06) (units unknown) (unknown) (unknown) (no date) (unknown) (unknown) Pertinent medi cations include: (units unknown) (unknown) (unknown) (no date) (unknown) (unknown) Plan (units unknown) (unknown) (unknown) (no date) (unknown) (unknown) Plan/Recommendations : (units unknown) (unknown) (unknown) (no date) (unknown) (unknown) Position Sitting (un its unknown) (unknown) (unknown) (no date) (unknown) (unknown) Prescriptions Written: [] (units unknown) (unknown) (unknown) (no date) (unknown) (unknown) Previous pain treatments included: (units unknown) (unknown) (unknown) (no date) (unknown) (unknown) Psych: Appropr iate affect, answers questions appropriately (units unknown) (unknown) (unknown) (no date) (unknown) (unknown) Pulse 86 (units unknown) (unknown) (unknown) (no date) (unknown) (unknown) Pulse Oximetry (%) 9 6 (units unknown) (unknown) (unknown) (no date) (unknown) (unknown) Pulse Source Monitor (units unknown) (unknown) (unknown) (no date) (unknown) (unknown) Quality and ti alirio of pain: (units unknown) (unknown) (unknown) (no date) (unknown) (unknown) REFERRAL FROM DR. JEAN LICONA (units unknown) (unknown) (unknown) (no date) (unknown) (unknown) ROS Narrative (units unknown) (unknown) (unknown) (no date) (unknown) (unknown) ROS Narrative: (unit s unknown) (unknown) (unknown) (no date) (unknown) (unknown) ROS (units unknown) (unknown) (unknown) (no date) (unknown) (unknown) Rash (units unknown) (unknown) (unknown) (no date) (unknown) (unknown) Reason For Visit (un its unknown) (unknown) (unknown) (no date) (unknown) (unknown) Red flag symptoms: ( units unknown) (unknown) (unknown) (no date) (unknown) (unknown) Reflex Right Left (u nits unknown) (unknown) (unknown) (no date) (unknown) (unknown) Reflexes: (units unknown) (unknown) (unknown) (no date) (unknown) (unknown) Relieving fact ors include: (units unknown) (unknown) (unknown) (no date) (unknown) (unknown) Respiratory: Non-labored breathing pattern on RA. No respiratory distress (units unknown) (unknown) (unknown) (no date) (unknown) (unknown) Reviewed?by:?J eff?Chof fel?RRA?Interpreted:?Luther eric?Luisa??on?07/24?at?14:49 (units unknown) (unknown) (unknown) (no date) (unknown) (unknown) Reviewed?by:?Johnathon lutz?Kyle?Clayton?on?09/20/2022 ?at?14:57???Transcribe d?by:?KASSANDRA?on (units unknown) (unknown) (unknown) (no date) (unknown) (unknown) S1 Achilles 2+ 2 (un its unknown) (unknown) (unknown) (no date) (unknown) (unknown) S1 Ankle Plantarflexion 5/5 5/5 (units unknown) (unknown) (unknown) (no date) (unknown) (unknown) Saddle anesthe kelby: denies (units unknown) (unknown) (unknown) (no date) (unknown) (unknown) Segment Action Right Left (units unknown) (unknown) (unknown) (no date) (unknown) (unknown) Segment Reflex Right Left (units unknown) (unknown) (unknown) (no date) (unknown) (unknown) Sensory -? Int act to light touch of bilateral lower extremities. Allodynia (units unknown) (unknown) (unknown) (no date) (unknown) (unknown) Signed By: (units unknown) (unknown) (unknown) (no date) (unknown) (unknown) Skin: No appre ciable rashes or skin breakdown (units unknown) (unknown) (unknown) (no date) (unknown) (unknown) Smoking Status : Never smoker (units unknown) (unknown) (unknown) (no date) (unknown) (unknown) Soft?tissues: (units unknown) (unknown) (unknown) (no date) (unknown) (unknown) Spinal?Cord: (units unknown) (unknown) (unknown) (no date) (unknown) (unknown) Standing: (units unknown) (unknown) (unknown) (no date) (unknown) (unknown) Surgery: Patie nt is s/p (units unknown) (unknown) (unknown) (no date) (unknown) (unknown) T12-L1: (units unknown) (unknown) (unknown) (no date) (unknown) (unknown) T2?fast?spin?e cho?may? be?performed.?? (units unknown) (unknown) (unknown) (no date) (unknown) (unknown) TECHNIQUE: (units unknown) (unknown) (unknown) (no date) (unknown) (unknown) TECHNIQUE:?? (units unknown) (unknown) (unknown) (no date) (unknown) (unknown) Temp 98.4 F (units unknown) (unknown) (unknown) (no date) (unknown) (unknown) Temp Source Te mporal Artery Scan (units unknown) (unknown) (unknown) (no date) (unknown) (unknown) [facility] (units unknown) (unknown) (unknown) (no date) (unknown) (unknown) This note may have been all or partially generated using voice recognition (units unknown) (unknown) (unknown) (no date) (unknown) (unknown) Tobacco + Subs tance Use (units unknown) (unknown) (unknown) (no date) (unknown) (unknown) Tobacco Status (unit s unknown) (unknown) (unknown) (no date) (unknown) (unknown) Today I have r eviewed available medical information in the patient's medical (units unknown) (unknown) (unknown) (no date) (unknown) (unknown) Upper Motor [place] uron Signs: (units unknown) (unknown) (unknown) (no date) (unknown) (unknown) 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 (units unknown) (unknown) (unknown) (no date) (unknown) (unknown) We reviewed et iology, predisposing factor(s), natural course, imaging results as (units unknown) (unknown) (unknown) (no date) (unknown) (unknown) Weakness: denies (un its unknown) (unknown) (unknown) (no date) (unknown) (unknown) Weight 261 lb (units unknown) (unknown) (unknown) (no date) (unknown) (unknown) X-ray has been performed which is consistent with lumbar spondylosis, most (units unknown) (unknown) (unknown) (no date) (unknown) (unknown) [History Confi rmed 10/16/22] (units unknown) (unknown) (unknown) (no date) (unknown) (unknown) acetaminophen 500 mg tablet (Tylenol Extra Strength) 500 mg PO Q6H PRN 10/16/22 (units unknown) (unknown) (unknown) (no date) (unknown) (unknown) al?foraminal?stenosi s. (units unknown) (unknown) (unknown) (no date) (unknown) (unknown) albuterol sulf ate 90 mcg/actuation aerosol inhaler 2 puff inhalation Q6H PRN (units unknown) (unknown) (unknown) (no date) (unknown) (unknown) amitriptyline 10 mg tablet 10 mg PO BEDTIME 10/16/22 [History Confirmed (units unknown) (unknown) (unknown) (no date) (unknown) (unknown) at?the?L5-S1?level. (units unknown) (unknown) (unknown) (no date) (unknown) (unknown) benefits of va julio césar treatment options were discussed with the patient in great (units unknown) (unknown) (unknown) (no date) (unknown) (unknown) bowel/bladder dysfunction, and perineal numbness were discussed. The patient was (units unknown) (unknown) (unknown) (no date) (unknown) (unknown) cannot tolerat e physical therapy at the current time due to the intensity of the (units unknown) (unknown) (unknown) (no date) (unknown) (unknown) cyclobenzaprin e 10 mg tablet 10 mg PO BEDTIME 10/16/22 [History Confirmed (units unknown) (unknown) (unknown) (no date) (unknown) (unknown) d?facet?and?li gamentum ?flavum?hypertrophy.?? Mild?epidural?lipomato sis.??Moderate (units unknown) (unknown) (unknown) (no date) (unknown) (unknown) detail. (units unknown) (unknown) (unknown) (no date) (unknown) (unknown) diclofenac sod ium 75 mg tablet,delayed release 75 mg PO BID PRN 10/16/22 (units unknown) (unknown) (unknown) (no date) (unknown) (unknown) enosis.??Mild? bilatera l?foraminal?stenosis. (units unknown) (unknown) (unknown) (no date) (unknown) (unknown) erate?facet?an d?ligame ntum?flavum?hypertroph y.??Severe?canal?steno sis.??Moderate (units unknown) (unknown) (unknown) (no date) (unknown) (unknown) es?normal?sign al?and?s ize.?? (units unknown) (unknown) (unknown) (no date) (unknown) (unknown) et?and?ligamen jolly?flav um?hypertrophy.??Mild? canal?stenosis.??Sever e?bilateral?fo (units unknown) (unknown) (unknown) (no date) (unknown) (unknown) et?and?ligamen jolly?flav um?hypertrophy.??Mild? epidural?lipomatosis.? ?Mild?canal?st (units unknown) (unknown) (unknown) (no date) (unknown) (unknown) et?and?ligamen jolly?flav um?hypertrophy.??Moder ate?canal?stenosis.??M ild?bilater (units unknown) (unknown) (unknown) (no date) (unknown) (unknown) facet arthropa thy who presents for further evaluation of low back and leg pain. (units unknown) (unknown) (unknown) (no date) (unknown) (unknown) foraminal?nerv e?root?c ompression.?Recommend? correlation?with?clini rashaad?symptoms?t (units unknown) (unknown) (unknown) (no date) (unknown) (unknown) have occurred. If there are any questions, please contact the Medical Records (units unknown) (unknown) (unknown) (no date) (unknown) (unknown) hypertrophy?an d?epidur al?lipomatosis. (units unknown) (unknown) (unknown) (no date) (unknown) (unknown) improved sleep , improved mobility, etc. (units unknown) (unknown) (unknown) (no date) (unknown) (unknown) in PT. [] (units unknown) (unknown) (unknown) (no date) (unknown) (unknown) instructed to report to the Emergency department, if these symptoms occur. (units unknown) (unknown) (unknown) (no date) (unknown) (unknown) instructed to stop if any side effects. [] (units unknown) (unknown) (unknown) (no date) (unknown) (unknown) intravenous dr ug use, sustained glucocorticoid use, osteoporosis, or a focal (units unknown) (unknown) (unknown) (no date) (unknown) (unknown) local anesthet ic. During that time patient able to participate in ADLs, had (units unknown) (unknown) (unknown) (no date) (unknown) (unknown) loratadine 10 mg tablet (Allergy Relief (loratadine)) 10 mg PO DAILY 10/16/22 (units unknown) (unknown) (unknown) (no date) (unknown) (unknown) may occur. Occ asional wrong-word or 'sound-alike' substitutions may have (units unknown) (unknown) (unknown) (no date) (unknown) (unknown) meds. [] (units unknown) (unknown) (unknown) (no date) (unknown) (unknown) metoprolol suc cinate 25 mg tablet,extended release 24 hr 25 mg PO DAILY 10/16/22 (units unknown) (unknown) (unknown) (no date) (unknown) (unknown) nd?L5?on?S1. (units unknown) (unknown) (unknown) (no date) (unknown) (unknown) negative, Hype ralgesia - negative (units unknown) (unknown) (unknown) (no date) (unknown) (unknown) neurological d eficit with progressive or disabling symptoms. (units unknown) (unknown) (unknown) (no date) (unknown) (unknown) ns.??Cholecyst ectomy?c lips. (units unknown) (unknown) (unknown) (no date) (unknown) (unknown) nt?arthropathy ?L4-L5?a nd?L5-S1.??No?vertebra l?body?compression?fra ctures.??No?jansen (units unknown) (unknown) (unknown) (no date) (unknown) (unknown) o?ascertain?re levance? of?this?finding.? (units unknown) (unknown) (unknown) (no date) (unknown) (unknown) occurred due t o the inherent limitations of voice recognition software. Please (units unknown) (unknown) (unknown) (no date) (unknown) (unknown) of Spinal Cord Injur y) (units unknown) (unknown) (unknown) (no date) (unknown) (unknown) omeprazole 20 mg capsule,delayed release 20 mg PO DAILY 10/16/22 [History (units unknown) (unknown) (unknown) (no date) (unknown) (unknown) or immunosuppr essive therapy, previous or current cancer diagnosis, history of (units unknown) (unknown) (unknown) (no date) (unknown) (unknown) pain. [] (units unknown) (unknown) (unknown) (no date) (unknown) (unknown) pin?echo?throu gh?the?l umbar?spine.??In?cases ?with?scoliosis,?addit ional?coronal? (units unknown) (unknown) (unknown) (no date) (unknown) (unknown) pregabalin 150 mg capsule 150 mg PO BID 10/16/22 [History Confirmed 10/16/22] (units unknown) (unknown) (unknown) (no date) (unknown) (unknown) racic?spine. (units unknown) (unknown) (unknown) (no date) (unknown) (unknown) radiculopathy, lumbar spinal stenosis with neurogenic claudication and lumbar (units unknown) (unknown) (unknown) (no date) (unknown) (unknown) raminal?stenos is?with? bilateral?L5?nerve?ghanshyam t?compression. (units unknown) (unknown) (unknown) (no date) (unknown) (unknown) read the note carefully and recognize, using context, where these substitutions (units unknown) (unknown) (unknown) (no date) (unknown) (unknown) record, includ ing relevant provider notes, laboratory work, and imaging. (units unknown) (unknown) (unknown) (no date) (unknown) (unknown) rmal?lumbar?lo rdosis.? ?3?mm?of?retrolisthesi s?of?L1?on?L2,?L2?on?L 3,?L3?on?L4,?a (units unknown) (unknown) (unknown) (no date) (unknown) (unknown) s.??Moderate?c anal?james nosis?at?L2-L3?and?L3- L4. (units unknown) (unknown) (unknown) (no date) (unknown) (unknown) scale and/or p ain interferes with ADLs. (units unknown) (unknown) (unknown) (no date) (unknown) (unknown) severe at the L5-S1 level. MRI concerning for multilevel central canal (units unknown) (unknown) (unknown) (no date) (unknown) (unknown) software. 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 lesions. ?? (units unknown) (unknown) (unknown) (no date) (unknown) (unknown) stability intact.] ( units unknown) (unknown) (unknown) (no date) (unknown) (unknown) stenosis at L5 -S1. She is seen by Dr. Licona with Orthopedic spine surgery and (units unknown) (unknown) (unknown) (no date) (unknown) (unknown) stenosis, wors e at L4-5 and L5-S1. There is also bilateral neural foraminal (units unknown) (unknown) (unknown) (no date) (unknown) (unknown) therapeutic in jections and surgery. The risks, consequences, alternatives and (units unknown) (unknown) (unknown) (no date) (unknown) (unknown) therapy. ?A re ferral was provided for the patient. [] (units unknown) (unknown) (unknown) (no date) (unknown) (unknown) ures.??Mild?re active?s ignal?throughout?the?e ndplates?of?the?lumbar ?and?lower?tho (units unknown) (unknown) (unknown) (no date) (unknown) (unknown) wait for surge ry until after consultation with pain management. (units unknown) (unknown) (unknown) (no date) (unknown) (unknown) walking intact . Tandem gait normal without evidence of ataxia. Lower quarter (units unknown) (unknown) (unknown) (no date) (unknown) (unknown) was felt to be a surgical candidate for laminectomy at L4-5. Patient elected to (units unknown) (unknown) (unknown) (no date) (unknown) (unknown) well as treatm ent options including medications, physical therapy/exercise, (units unknown) (unknown) (unknown) (no date) (unknown) (unknown) with future tr eatment planning. [] (units unknown) (unknown) Result panel 6 (unknown) (no date) (unknown) (unknown) (no value) (units unknown) (unknown) (unknown) (no date) (unknown) (unknown) (0=absent, 1=s light response, 2=brisk/normal, 3=very brisk, 4=clonus) (units unknown) (unknown) (unknown) (no date) (unknown) (unknown) (segments are from the International Standards for Neurological Classification (units unknown) (unknown) (unknown) (no date) (unknown) (unknown) - Activity: Co ntinue activity as tolerated. [] (units unknown) (unknown) (unknown) (no date) (unknown) (unknown) - Chiropractor , acupuncture[] (units unknown) (unknown) (unknown) (no date) (unknown) (unknown) - Continues cl inician directed home exercise program including exercises learned (units unknown) (unknown) (unknown) (no date) (unknown) (unknown) - Education: C auda equina and associated symptoms, including motor weakness, (units unknown) (unknown) (unknown) (no date) (unknown) (unknown) - FADIR: [(-/+ ) on the R side / L side / bilaterally] (units unknown) (unknown) (unknown) (no date) (unknown) (unknown) - Follow-up: [] (uni ts unknown) (unknown) (unknown) (no date) (unknown) (unknown) - Hip ROM is: [WNL / limited and painful on the R sided / L side / bilaterally] (units unknown) (unknown) (unknown) (no date) (unknown) (unknown) - I discussed risks, benefits and side effects. Additionally, patient was (units unknown) (unknown) (unknown) (no date) (unknown) (unknown) - Imaging: No new imaging indicated at this time. [] (units unknown) (unknown) (unknown) (no date) (unknown) (unknown) - Interventional/Surgica l procedures: None indicated at this time. [] (units unknown) (unknown) (unknown) (no date) (unknown) (unknown) - Lumbar facet loading: [(-/+) on the R side / L side / bilaterally] (units unknown) (unknown) (unknown) (no date) (unknown) (unknown) - Medications: No new prescription at this time. Patient will continue current (units unknown) (unknown) (unknown) (no date) (unknown) (unknown) - Medications: acetaminophen, NSAIDS, neuropathics, muscle relaxants [] (units unknown) (unknown) (unknown) (no date) (unknown) (unknown) - Physical The rapy: Completed 6 week course in the last 6 months OR Patient (units unknown) (unknown) (unknown) (no date) (unknown) (unknown) - Physical therapy/modalities/DME : Patient will likely benefit from physical (units unknown) (unknown) (unknown) (no date) (unknown) (unknown) - Prescription provided and uptitration instructions given if necessary. [] (units unknown) (unknown) (unknown) (no date) (unknown) (unknown) - Previous [] on [] provided []% relief of pain for the expected duration of the (units unknown) (unknown) (unknown) (no date) (unknown) (unknown) - Referrals: N one indicated at this time. [] (units unknown) (unknown) (unknown) (no date) (unknown) (unknown) - SIJ provocat ion testing: [ (+/-) Kristen's finger test, posterior thrust, (units unknown) (unknown) (unknown) (no date) (unknown) (unknown) - Straight Leg Raise: [(-/+) on the L side / R side / bilaterally] (units unknown) (unknown) (unknown) (no date) (unknown) (unknown) [id number] (units unknown) (unknown) (unknown) (no date) (unknown) (unknown) 10/16/22 [Hist ory Confirmed 10/16/22] (units unknown) (unknown) (unknown) (no date) (unknown) (unknown) 10/16/22 (units unknown) (unknown) (unknown) (no date) (unknown) (unknown) 10/16/22] (units unknown) (unknown) (unknown) (no date) (unknown) (unknown) 1.?Multilevel? degenera tive?disc?and?facet?di sease,?as?well?as?liga mentum?flavum? (units unknown) (unknown) (unknown) (no date) (unknown) (unknown) 1.Limited?rang e?of?mot ion?and?multilevel?lum bar?spine?spondylosis, ?most?notably? (units unknown) (unknown) (unknown) (no date) (unknown) (unknown) 13:16 (units unknown) (unknown) (unknown) (no date) (unknown) (unknown) 2.?Multilevel? canal?st enoses,?worst?at?L4-L5 ?where?there?is?severe ?canal?stenosi (units unknown) (unknown) (unknown) (no date) (unknown) (unknown) ,?14:34. (uni ts unknown) (unknown) (unknown) (no date) (unknown) (unknown) 3.?Multilevel? foramina l?stenoses,?worst?at?L 5 (units unknown) (unknown) (unknown) (no date) (unknown) (unknown) 4.??Left?iliop soas?mus ronald?atrophy.?? (units unknown) (unknown) (unknown) (no date) (unknown) (unknown) ? Inspection - ? No gross appendicular or axial deformities (units unknown) (unknown) (unknown) (no date) (unknown) (unknown) ? Palpation -? [Tender to palpation of / No tenderness to palpation] (units unknown) (unknown) (unknown) (no date) (unknown) (unknown) ? ROM - [Lumba r flexion/ extension/ lateral rotation is limited due to pain / (units unknown) (unknown) (unknown) (no date) (unknown) (unknown) ? Special tests (uni ts unknown) (unknown) (unknown) (no date) (unknown) (unknown) ?09/20/2022?at?15:01 (units unknown) (unknown) (unknown) (no date) (unknown) (unknown) ??5?lumbar?typ e?verteb ral?bodies?are?present ?by?plain?film.??There ?is?loss?of?no (units unknown) (unknown) (unknown) (no date) (unknown) (unknown) ??5?nonrib-viviana ring?bre tebrae?are?present.??3 ?mm?retrolisthesis?L2- L3,?L3-L4?and? (units unknown) (unknown) (unknown) (no date) (unknown) (unknown) ??5?views?of?t he?lumba r?spine?acquired,?incl uding?flexion?and?exte nsion?views.? (units unknown) (unknown) (unknown) (no date) (unknown) (unknown) ? Acetaminophen (units unknown) (unknown) (unknown) (no date) (unknown) (unknown) ? Antidepressants -current (units unknown) (unknown) (unknown) (no date) (unknown) (unknown) ? Antiepileptics -current (units unknown) (unknown) (unknown) (no date) (unknown) (unknown) ? Mu scle Relaxants -cyclobenzaprine (units unknown) (unknown) (unknown) (no date) (unknown) (unknown) ? NS AIDs -current (units unknown) (unknown) (unknown) (no date) (unknown) (unknown) ? Opioids (units unknown) (unknown) (unknown) (no date) (unknown) (unknown) ? Steroids (units unknown) (unknown) (unknown) (no date) (unknown) (unknown) ? Topicals (units unknown) (unknown) (unknown) (no date) (unknown) (unknown) ???Transcribed ?by:?DIANA MORAN?on?07/24/2022?at ?14:50?Approved?by: ?Leonel?Luisa, (units unknown) (unknown) (unknown) (no date) (unknown) (unknown) ??Conus?medull cade?ter minates?at?the?lower?L 1?level.??Visualized?c ord?demonstrat (units unknown) (unknown) (unknown) (no date) (unknown) (unknown) ??Marrow?is?of ?normal? overall?signal.??No?ac [place]?vertebral?body?com pression?fract (units unknown) (unknown) (unknown) (no date) (unknown) (unknown) ??Moderate?dis c?desicc ation.??Mild?disc?heig ht?loss?and?diffuse?di sc?bulge.??Mil (units unknown) (unknown) (unknown) (no date) (unknown) (unknown) ??Moderate?dis c?desicc ation.??Mild?disc?heig ht?loss?and?diffuse?di sc?bulge.??Mod (units unknown) (unknown) (unknown) (no date) (unknown) (unknown) ??Moderate?dis c?height ?loss?and?desiccation. ??Mild?diffuse?disc?bu lge.??Mild?fac (units unknown) (unknown) (unknown) (no date) (unknown) (unknown) ??Moderate?dis c?height ?loss?and?desiccation. ??No?significant?canal ,?or?foraminal (units unknown) (unknown) (unknown) (no date) (unknown) (unknown) ??No?paraverte bral?mas ses.??There?is?asymmet david?left?ileo?psoas?at rophy. (units unknown) (unknown) (unknown) (no date) (unknown) (unknown) ??Overlying?israel wel?gas? pattern?is?normal.??No ?suspicious?soft?tissu e?calcificatio (units unknown) (unknown) (unknown) (no date) (unknown) (unknown) ??[facility],?CR,?XR?LUMBAR?SPIN E?WITH?FLEXION?EXTENSI ON?5?VIEWS,?1/ (units unknown) (unknown) (unknown) (no date) (unknown) (unknown) ??There?is?sanchez ited?ran ge?of?motion,?with?pre served?normal?alignmen t.?? (units unknown) (unknown) (unknown) (no date) (unknown) (unknown) ?M.D.?on?2022?at? 15:37??? (units unknown) (unknown) (unknown) (no date) (unknown) (unknown) ?canal?stenosi s.??Mode rate?bilateral?foramin al?stenosis. (units unknown) (unknown) (unknown) (no date) (unknown) (unknown) ?stenosis. (units unknown) (unknown) (unknown) (no date) (unknown) (unknown) ?subarticular? foramina l?stenosis?bilaterally . (units unknown) (unknown) (unknown) (no date) (unknown) (unknown) ?vertebral?bod y?compre ssion?fractures.??No?s uspicious?bony?lesions .?? (units unknown) (unknown) (unknown) (no date) (unknown) (unknown) Accompanied by : Self / Same As Patient (units unknown) (unknown) (unknown) (no date) (unknown) (unknown) Age/Sex: 67 / F Date of Service: (units unknown) (unknown) (unknown) (no date) (unknown) (unknown) Aggravating fa ctors include: standing, walking (units unknown) (unknown) (unknown) (no date) (unknown) (unknown) Alignment?and? [place]: (units unknown) (unknown) (unknown) (no date) (unknown) (unknown) All other syst ems reviewed and are unremarkable except as noted in HPI. (units unknown) (unknown) (unknown) (no date) (unknown) (unknown) Allergies (units unknown) (unknown) (unknown) (no date) (unknown) (unknown) Amitriptyline 10 mg (units unknown) (unknown) (unknown) (no date) (unknown) (unknown) [place] [address] (units unknown) (unknown) (unknown) (no date) (unknown) (unknown) Assessment + Plan (u nits unknown) (unknown) (unknown) (no date) (unknown) (unknown) Assessment: (units unknown) (unknown) (unknown) (no date) (unknown) (unknown) Attending Dr: Robin Morel MD (units unknown) (unknown) (unknown) (no date) (unknown) (unknown) BMI 40.8 (units unknown) (unknown) (unknown) (no date) (unknown) (unknown) BP 156/90 H (units unknown) (unknown) (unknown) (no date) (unknown) (unknown) RosendoComposeright's Caitlin ngoing Downgoing (units unknown) (unknown) (unknown) (no date) (unknown) (unknown) Bilateral?hip? arthropl asties?incompletely?vi sualized. (units unknown) (unknown) (unknown) (no date) (unknown) (unknown) Blood Pressure Location Rt brachial (units unknown) (unknown) (unknown) (no date) (unknown) (unknown) Bone?Marrow: (units unknown) (unknown) (unknown) (no date) (unknown) (unknown) Bones: (units unknown) (unknown) (unknown) (no date) (unknown) (unknown) Bowel and blad jonah: Chronic bladder incontinence (units unknown) (unknown) (unknown) (no date) (unknown) (unknown) COMPARISON: (units unknown) (unknown) (unknown) (no date) (unknown) (unknown) COMPARISON:??None. ( units unknown) (unknown) (unknown) (no date) (unknown) (unknown) Cardiovascular : No edema or cyanosis. 2+ peripheral pulses (units unknown) (unknown) (unknown) (no date) (unknown) (unknown) Chart review: (units unknown) (unknown) (unknown) (no date) (unknown) (unknown) Judi is a 67-year-old female with a history of chronic low back pain, lumbar (units unknown) (unknown) (unknown) (no date) (unknown) (unknown) Chief Complaint (uni ts unknown) (unknown) (unknown) (no date) (unknown) (unknown) Chief Complain t: Low back and leg pain (units unknown) (unknown) (unknown) (no date) (unknown) (unknown) Chronic, inter mittent LBP with radiation to b/l legs without inciting event. (units unknown) (unknown) (unknown) (no date) (unknown) (unknown) Clonus None None (un its unknown) (unknown) (unknown) (no date) (unknown) (unknown) Confirmed 10/16/22] (units unknown) (unknown) (unknown) (no date) (unknown) (unknown) Conservative management includes: (units unknown) (unknown) (unknown) (no date) (unknown) (unknown) Continue [facility] physical therapy. [] (units unknown) (unknown) (unknown) (no date) (unknown) (unknown) Continue home exercise program. [] (units unknown) (unknown) (unknown) (no date) (unknown) (unknown) : 7 Acct:[id number] (units unknown) (unknown) (unknown) (no date) (unknown) (unknown) Denies recent trauma, fever or weight loss of unknown origin, immunocompromise (units unknown) (unknown) (unknown) (no date) (unknown) (unknown) Dept at . (units unknown) (unknown) (unknown) (no date) (unknown) (unknown) Details: (units unknown) (unknown) (unknown) (no date) (unknown) (unknown) Diclofenac 75 mg (un its unknown) (unknown) (unknown) (no date) (unknown) (unknown) Documented By: Robin Morel MD 10/15/22 1511 (units unknown) (unknown) (unknown) (no date) (unknown) (unknown) Draft (units unknown) (unknown) (unknown) (no date) (unknown) (unknown) Exam Narrative (unit s unknown) (unknown) (unknown) (no date) (unknown) (unknown) Exam Narrative: (uni ts unknown) (unknown) (unknown) (no date) (unknown) (unknown) Exam (units unknown) (unknown) (unknown) (no date) (unknown) (unknown) SABINAFay n's, Pelvic rocking on the R/L side / bilaterally] (units unknown) (unknown) (unknown) (no date) (unknown) (unknown) FINDINGS:?? (units unknown) (unknown) (unknown) (no date) (unknown) (unknown) Flexion/extension: ( units unknown) (unknown) (unknown) (no date) (unknown) (unknown) Gait/Station - [Non-antalgic gait. Heel (L5 strength) and toe (S1 strength) (units unknown) (unknown) (unknown) (no date) (unknown) (unknown) General: Well-nourished, well-developed, [sex] in no acute distress (units unknown) (unknown) (unknown) (no date) (unknown) (unknown) HPI (units unknown) (unknown) (unknown) (no date) (unknown) (unknown) Height 5 ft 7 in (un its unknown) (unknown) (unknown) (no date) (unknown) (unknown) IMPRESSION:?? (units unknown) (unknown) (unknown) (no date) (unknown) (unknown) INDICATIONS:?? lumbar?p ain (units unknown) (unknown) (unknown) (no date) (unknown) (unknown) INDICATIONS:??pain ( units unknown) (unknown) (unknown) (no date) (unknown) (unknown) Image?quality: ??Excell ent.?? (units unknown) (unknown) (unknown) (no date) (unknown) (unknown) Injections: (units unknown) (unknown) (unknown) (no date) (unknown) (unknown) Intake Clinical Staf f (units unknown) (unknown) (unknown) (no date) (unknown) (unknown) Intake Note: (units unknown) (unknown) (unknown) (no date) (unknown) (unknown) Intake perform ed by: Gisselle Gastelum (units unknown) (unknown) (unknown) (no date) (unknown) (unknown) Intake (units unknown) (unknown) (unknown) (no date) (unknown) (unknown) Intervention: Date: Outcome: (units unknown) (unknown) (unknown) (no date) (unknown) (unknown) Is patient in pain?: Yes Pain scale (1-10): 6 (units unknown) (unknown) (unknown) (no date) (unknown) (unknown) JUSTIFICATION OF MEDICAL NECESSITY (units unknown) (unknown) (unknown) (no date) (unknown) (unknown) L-spine/T-spin e/C-spin e MRI ordered to better delineate the anatomy and help (units unknown) (unknown) (unknown) (no date) (unknown) (unknown) L1-L2: (units unknown) (unknown) (unknown) (no date) (unknown) (unknown) L2 Hip Flexion 5/5 5/5? (units unknown) (unknown) (unknown) (no date) (unknown) (unknown) L2-L3: (units unknown) (unknown) (unknown) (no date) (unknown) (unknown) L3 Knee Extens ion 5/5 5/5 (units unknown) (unknown) (unknown) (no date) (unknown) (unknown) L3-L4: (units unknown) (unknown) (unknown) (no date) (unknown) (unknown) L4 Ankle Dorsi flexion 5/5 5/5 (units unknown) (unknown) (unknown) (no date) (unknown) (unknown) L4 Patella 2+ 2 (uni ts unknown) (unknown) (unknown) (no date) (unknown) (unknown) L4-L5: (units unknown) (unknown) (unknown) (no date) (unknown) (unknown) L5 Long Toe Ex tension 5/5 5/5 (units unknown) (unknown) (unknown) (no date) (unknown) (unknown) L5-S1.??Multil evel?dis c?height?loss?with?end plate?sclerosis?and?sp urring,?s (units unknown) (unknown) (unknown) (no date) (unknown) (unknown) L5-S1: (units unknown) (unknown) (unknown) (no date) (unknown) (unknown) Loc: PAIN (units unknown) (unknown) (unknown) (no date) (unknown) (unknown) Lyrica 150 mg (units unknown) (unknown) (unknown) (no date) (unknown) (unknown) MSK: System re viewed and no additional complaints, except as documented. (units unknown) (unknown) (unknown) (no date) (unknown) (unknown) Medications (units unknown) (unknown) (unknown) (no date) (unknown) (unknown) Medications: (units unknown) (unknown) (unknown) (no date) (unknown) (unknown) Morphine Aller gy (Mild, Uncoded 10/16/22 13:06) (units unknown) (unknown) (unknown) (no date) (unknown) (unknown) Motor (units unknown) (unknown) (unknown) (no date) (unknown) (unknown) Musculoskeletal: (un its unknown) (unknown) (unknown) (no date) (unknown) (unknown) Neuro: System reviewed and no additional complaints, except as documented. (units unknown) (unknown) (unknown) (no date) (unknown) (unknown) Neurologic: (units unknown) (unknown) (unknown) (no date) (unknown) (unknown) Noncontrast?sa gittal?T 1?spin?echo?and?T2?fas t?echo,?sagittal?STIR, ?and?T2?fast?s (units unknown) (unknown) (unknown) (no date) (unknown) (unknown) Not indicated at this time. [] (units unknown) (unknown) (unknown) (no date) (unknown) (unknown) Numbness/Tingl ing: b/l posterior thighs (units unknown) (unknown) (unknown) (no date) (unknown) (unknown) Objective Data (unit s unknown) (unknown) (unknown) (no date) (unknown) (unknown) Objective Data: (uni ts unknown) (unknown) (unknown) (no date) (unknown) (unknown) Onset/Context of haritha n: (units unknown) (unknown) (unknown) (no date) (unknown) (unknown) Onset: insidious (un its unknown) (unknown) (unknown) (no date) (unknown) (unknown) Other: denies (units unknown) (unknown) (unknown) (no date) (unknown) (unknown) Oxygen Deliver y Method room air (units unknown) (unknown) (unknown) (no date) (unknown) (unknown) PATIENT IS HER E FOR LOW BACK PAIN (units unknown) (unknown) (unknown) (no date) (unknown) (unknown) PFSH (units unknown) (unknown) (unknown) (no date) (unknown) (unknown) PROCEDURE:??MR ?LUMBAR? SPINE?WITHOUT?CONTRAST (units unknown) (unknown) (unknown) (no date) (unknown) (unknown) PROCEDURE:??XR ?LUMBAR? SPINE?WITH?FLEXION?EXT ENSION?5?VIEWS (units unknown) (unknown) (unknown) (no date) (unknown) (unknown) PT: Amilcarjocelynn He alth 6 visits in the last 6 months (units unknown) (unknown) (unknown) (no date) (unknown) (unknown) Pain Scale (units unknown) (unknown) (unknown) (no date) (unknown) (unknown) Pain Visit (units unknown) (unknown) (unknown) (no date) (unknown) (unknown) Pain location/Radiation: low back pain radiating to b/l posterior thighs (units unknown) (unknown) (unknown) (no date) (unknown) (unknown) Pain ratin /10 today, 9/10 at worst (units unknown) (unknown) (unknown) (no date) (unknown) (unknown) Paraspinous?So ft?Tissu es: (units unknown) (unknown) (unknown) (no date) (unknown) (unknown) Patient will r eturn for []. Risks and benefits were discussed. (units unknown) (unknown) (unknown) (no date) (unknown) (unknown) Patient's pain has been present for >6 weeks and is an average of >6/10 on 0-10 (units unknown) (unknown) (unknown) (no date) (unknown) (unknown) Patient: Judi Aguilar MR#: [id number] (units unknown) (unknown) (unknown) (no date) (unknown) (unknown) [facility] (Verified 10/16/22 13:06) (units unknown) (unknown) (unknown) (no date) (unknown) (unknown) Pertinent medi cations include: (units unknown) (unknown) (unknown) (no date) (unknown) (unknown) Plan (units unknown) (unknown) (unknown) (no date) (unknown) (unknown) Plan/Recommendations : (units unknown) (unknown) (unknown) (no date) (unknown) (unknown) Position Sitting (un its unknown) (unknown) (unknown) (no date) (unknown) (unknown) Prescriptions Written: [] (units unknown) (unknown) (unknown) (no date) (unknown) (unknown) Previous pain treatments included: (units unknown) (unknown) (unknown) (no date) (unknown) (unknown) Psych: Appropr iate affect, answers questions appropriately (units unknown) (unknown) (unknown) (no date) (unknown) (unknown) Pulse 86 (units unknown) (unknown) (unknown) (no date) (unknown) (unknown) Pulse Oximetry (%) 9 6 (units unknown) (unknown) (unknown) (no date) (unknown) (unknown) Pulse Source Monitor (units unknown) (unknown) (unknown) (no date) (unknown) (unknown) Quality and ti alirio of pain: Back - sharp or dull, intermittent; Legs - hurt and (units unknown) (unknown) (unknown) (no date) (unknown) (unknown) REFERRAL FROM DR. JEAN LICONA (units unknown) (unknown) (unknown) (no date) (unknown) (unknown) ROS Narrative (units unknown) (unknown) (unknown) (no date) (unknown) (unknown) ROS Narrative: (unit s unknown) (unknown) (unknown) (no date) (unknown) (unknown) ROS (units unknown) (unknown) (unknown) (no date) (unknown) (unknown) Rash (units unknown) (unknown) (unknown) (no date) (unknown) (unknown) Reason For Visit (un its unknown) (unknown) (unknown) (no date) (unknown) (unknown) Red flag symptoms: ( units unknown) (unknown) (unknown) (no date) (unknown) (unknown) Reflex Right Left (u nits unknown) (unknown) (unknown) (no date) (unknown) (unknown) Reflexes: (units unknown) (unknown) (unknown) (no date) (unknown) (unknown) Relieving fact ors include: heat (units unknown) (unknown) (unknown) (no date) (unknown) (unknown) Respiratory: Non-labored breathing pattern on RA. No respiratory distress (units unknown) (unknown) (unknown) (no date) (unknown) (unknown) Reviewed?by:?J eff?Chof fel?RRA?Interpreted:?Luther eric?Luisa??on?07/24?at?14:49 (units unknown) (unknown) (unknown) (no date) (unknown) (unknown) Reviewed?by:?Johnathon lutz?Gonzalo yolanda,?M.D.?on?09/20/2022 ?at?14:57???Transcribe d?by:?CANNON?on (units unknown) (unknown) (unknown) (no date) (unknown) (unknown) S1 Achilles 2+ 2 (un its unknown) (unknown) (unknown) (no date) (unknown) (unknown) S1 Ankle Plantarflexion 5/5 5/5 (units unknown) (unknown) (unknown) (no date) (unknown) (unknown) S1?where?there ?is?asso ciated?intraforaminal? nerve?root?compression .?Recommend?co (units unknown) (unknown) (unknown) (no date) (unknown) (unknown) Saddle anesthe kelby: denies (units unknown) (unknown) (unknown) (no date) (unknown) (unknown) Segment Action Right Left (units unknown) (unknown) (unknown) (no date) (unknown) (unknown) Segment Reflex Right Left (units unknown) (unknown) (unknown) (no date) (unknown) (unknown) Sensory -? Int act to light touch of bilateral lower extremities. Allodynia (units unknown) (unknown) (unknown) (no date) (unknown) (unknown) Signed By: (units unknown) (unknown) (unknown) (no date) (unknown) (unknown) Skin: No appre ciable rashes or skin breakdown (units unknown) (unknown) (unknown) (no date) (unknown) (unknown) Smoking Status : Never smoker (units unknown) (unknown) (unknown) (no date) (unknown) (unknown) Soft?tissues: (units unknown) (unknown) (unknown) (no date) (unknown) (unknown) Spinal?Cord: (units unknown) (unknown) (unknown) (no date) (unknown) (unknown) Standing: incr eased LBP (units unknown) (unknown) (unknown) (no date) (unknown) (unknown) Surgery: denies (uni ts unknown) (unknown) (unknown) (no date) (unknown) (unknown) T12-L1: (units unknown) (unknown) (unknown) (no date) (unknown) (unknown) T2?fast?spin?e cho?may? be?performed.?? (units unknown) (unknown) (unknown) (no date) (unknown) (unknown) TECHNIQUE: (units unknown) (unknown) (unknown) (no date) (unknown) (unknown) TECHNIQUE:?? (units unknown) (unknown) (unknown) (no date) (unknown) (unknown) Temp 98.4 F (units unknown) (unknown) (unknown) (no date) (unknown) (unknown) Temp Source Te mporal Artery Scan (units unknown) (unknown) (unknown) (no date) (unknown) (unknown) [facility] (units unknown) (unknown) (unknown) (no date) (unknown) (unknown) This note may have been all or partially generated using voice recognition (units unknown) (unknown) (unknown) (no date) (unknown) (unknown) Tobacco + Subs tance Use (units unknown) (unknown) (unknown) (no date) (unknown) (unknown) Tobacco Status (unit s unknown) (unknown) (unknown) (no date) (unknown) (unknown) Today I have r eviewed available medical information in the patient's medical (units unknown) (unknown) (unknown) (no date) (unknown) (unknown) Tylenol (units unknown) (unknown) (unknown) (no date) (unknown) (unknown) Upper Motor Ne uron Signs: (units unknown) (unknown) (unknown) (no date) (unknown) (unknown) 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 (units unknown) (unknown) (unknown) (no date) (unknown) (unknown) We reviewed et iology, predisposing factor(s), natural course, imaging results as (units unknown) (unknown) (unknown) (no date) (unknown) (unknown) Weakness: denies (un its unknown) (unknown) (unknown) (no date) (unknown) (unknown) Weight 261 lb (units unknown) (unknown) (unknown) (no date) (unknown) (unknown) X-ray has been performed which is consistent with lumbar spondylosis, most (units unknown) (unknown) (unknown) (no date) (unknown) (unknown) [History Confi rmed 10/16/22] (units unknown) (unknown) (unknown) (no date) (unknown) (unknown) acetaminophen 500 mg tablet (Tylenol Extra Strength) 500 mg PO Q6H PRN 10/16/22 (units unknown) (unknown) (unknown) (no date) (unknown) (unknown) albuterol sulf ate 90 mcg/actuation aerosol inhaler 2 puff inhalation Q6H PRN (units unknown) (unknown) (unknown) (no date) (unknown) (unknown) amitriptyline 10 mg tablet 10 mg PO BEDTIME 10/16/22 [History Confirmed (units unknown) (unknown) (unknown) (no date) (unknown) (unknown) at?the?L5-S1?level. (units unknown) (unknown) (unknown) (no date) (unknown) (unknown) benefits of va rious treatment options were discussed with the patient in great (units unknown) (unknown) (unknown) (no date) (unknown) (unknown) bowel/bladder dysfunction, and perineal numbness were discussed. The patient was (units unknown) (unknown) (unknown) (no date) (unknown) (unknown) cannot tolerat e physical therapy at the current time due to the intensity of the (units unknown) (unknown) (unknown) (no date) (unknown) (unknown) cyclobenzaprin e 10 mg tablet 10 mg PO BEDTIME 10/16/22 [History Confirmed (units unknown) (unknown) (unknown) (no date) (unknown) (unknown) d?facet?and?li gamentum ?flavum?hypertrophy.?? Mild?epidural?lipomato sis.??Moderate (units unknown) (unknown) (unknown) (no date) (unknown) (unknown) detail. (units unknown) (unknown) (unknown) (no date) (unknown) (unknown) diclofenac sod ium 75 mg tablet,delayed release 75 mg PO BID PRN 10/16/22 (units unknown) (unknown) (unknown) (no date) (unknown) (unknown) enosis.??Mild? bilatera l?foraminal?stenosis. (units unknown) (unknown) (unknown) (no date) (unknown) (unknown) erate?facet?an d?ligame ntum?flavum?hypertroph y.??Severe?canal?steno sis.??Moderate (units unknown) (unknown) (unknown) (no date) (unknown) (unknown) es?normal?sign al?and?s ize.?? (units unknown) (unknown) (unknown) (no date) (unknown) (unknown) et?and?ligamen jolly?flav um?hypertrophy.??Mild? canal?stenosis.??Sever e?bilateral?fo (units unknown) (unknown) (unknown) (no date) (unknown) (unknown) et?and?ligamen jolly?flav um?hypertrophy.??Mild? epidural?lipomatosis.? ?Mild?canal?st (units unknown) (unknown) (unknown) (no date) (unknown) (unknown) et?and?ligamen jolly?flav um?hypertrophy.??Moder ate?canal?stenosis.??M ild?bilateral? (units unknown) (unknown) (unknown) (no date) (unknown) (unknown) evere?at?the?L 5-S1?lev el.??Moderate?facet?dede int?arthropathy?L4-L5? and?L5-S1.??No (units unknown) (unknown) (unknown) (no date) (unknown) (unknown) facet arthropa thy who presents for further evaluation of low back and leg pain. (units unknown) (unknown) (unknown) (no date) (unknown) (unknown) foraminal?stenosis. (units unknown) (unknown) (unknown) (no date) (unknown) (unknown) have occurred. If there are any questions, please contact the Medical Records (units unknown) (unknown) (unknown) (no date) (unknown) (unknown) hypertrophy?an d?epidur al?lipomatosis. (units unknown) (unknown) (unknown) (no date) (unknown) (unknown) improved sleep , improved mobility, etc. (units unknown) (unknown) (unknown) (no date) (unknown) (unknown) in PT. [] (units unknown) (unknown) (unknown) (no date) (unknown) (unknown) instructed to report to the Emergency department, if these symptoms occur. (units unknown) (unknown) (unknown) (no date) (unknown) (unknown) instructed to stop if any side effects. [] (units unknown) (unknown) (unknown) (no date) (unknown) (unknown) intravenous dr ug use, sustained glucocorticoid use, osteoporosis, or a focal (units unknown) (unknown) (unknown) (no date) (unknown) (unknown) local anesthet ic. During that time patient able to participate in ADLs, had (units unknown) (unknown) (unknown) (no date) (unknown) (unknown) loratadine 10 mg tablet (Allergy Relief (loratadine)) 10 mg PO DAILY 10/16/22 (units unknown) (unknown) (unknown) (no date) (unknown) (unknown) may occur. Occ asional wrong-word or 'sound-alike' substitutions may have (units unknown) (unknown) (unknown) (no date) (unknown) (unknown) meds. [] (units unknown) (unknown) (unknown) (no date) (unknown) (unknown) metoprolol suc cinate 25 mg tablet,extended release 24 hr 25 mg PO DAILY 10/16/22 (units unknown) (unknown) (unknown) (no date) (unknown) (unknown) nd?L5?on?S1. (units unknown) (unknown) (unknown) (no date) (unknown) (unknown) negative, Hype ralgesia - negative (units unknown) (unknown) (unknown) (no date) (unknown) (unknown) neurological d eficit with progressive or disabling symptoms. (units unknown) (unknown) (unknown) (no date) (unknown) (unknown) ns.??Cholecyst ectomy?c lips. (units unknown) (unknown) (unknown) (no date) (unknown) (unknown) occurred due t o the inherent limitations of voice recognition software. Please (units unknown) (unknown) (unknown) (no date) (unknown) (unknown) of Spinal Cord Injur y) (units unknown) (unknown) (unknown) (no date) (unknown) (unknown) omeprazole 20 mg capsule,delayed release 20 mg PO DAILY 10/16/22 [History (units unknown) (unknown) (unknown) (no date) (unknown) (unknown) or immunosuppr essive therapy, previous or current cancer diagnosis, history of (units unknown) (unknown) (unknown) (no date) (unknown) (unknown) pain. [] (units unknown) (unknown) (unknown) (no date) (unknown) (unknown) pin?echo?throu gh?the?l umbar?spine.??In?cases ?with?scoliosis,?addit ional?coronal? (units unknown) (unknown) (unknown) (no date) (unknown) (unknown) pregabalin 150 mg capsule 150 mg PO BID 10/16/22 [History Confirmed 10/16/22] (units unknown) (unknown) (unknown) (no date) (unknown) (unknown) racic?spine. (units unknown) (unknown) (unknown) (no date) (unknown) (unknown) radiculopathy, lumbar spinal stenosis with neurogenic claudication and lumbar (units unknown) (unknown) (unknown) (no date) (unknown) (unknown) raminal?stenos is?with? bilateral?L5?nerve?ghanshyam t?compression. (units unknown) (unknown) (unknown) (no date) (unknown) (unknown) read the note carefully and recognize, using context, where these substitutions (units unknown) (unknown) (unknown) (no date) (unknown) (unknown) record, includ ing relevant provider notes, laboratory work, and imaging. (units unknown) (unknown) (unknown) (no date) (unknown) (unknown) rmal?lumbar?lo rdosis.? ?3?mm?of?retrolisthesi s?of?L1?on?L2,?L2?on?L 3,?L3?on?L4,?a (units unknown) (unknown) (unknown) (no date) (unknown) (unknown) rrelation?with ?clinica l?symptoms?to?ascertai n?relevance?of?this?fi nding.? (units unknown) (unknown) (unknown) (no date) (unknown) (unknown) s.??Moderate?c anal?jmaes nosis?at?L2-L3?and?L3- L4. (units unknown) (unknown) (unknown) (no date) (unknown) (unknown) scale and/or p ain interferes with ADLs. (units unknown) (unknown) (unknown) (no date) (unknown) (unknown) severe at the L5-S1 level. MRI concerning for multilevel central canal (units unknown) (unknown) (unknown) (no date) (unknown) (unknown) software. Alth ough every effort is made to edit content, managed security sales consultant errors (units unknown) (unknown) (unknown) (no date) (unknown) (unknown) stability intact.] ( units unknown) (unknown) (unknown) (no date) (unknown) (unknown) stenosis at L5 -S1. She is seen by Dr. Licona with Orthopedic spine surgery and (units unknown) (unknown) (unknown) (no date) (unknown) (unknown) stenosis, wors e at L4-5 and L5-S1. There is also bilateral neural foraminal (units unknown) (unknown) (unknown) (no date) (unknown) (unknown) therapeutic in jections and surgery. The risks, consequences, alternatives and (units unknown) (unknown) (unknown) (no date) (unknown) (unknown) therapy. ?A re ferral was provided for the patient. [] (units unknown) (unknown) (unknown) (no date) (unknown) (unknown) ures.??Mild?re active?s ignal?throughout?the?e ndplates?of?the?lumbar ?and?lower?tho (units unknown) (unknown) (unknown) (no date) (unknown) (unknown) wait for surge ry until after consultation with pain management. (units unknown) (unknown) (unknown) (no date) (unknown) (unknown) walking intact . Tandem gait normal without evidence of ataxia. Lower quarter (units unknown) (unknown) (unknown) (no date) (unknown) (unknown) was felt to be a surgical candidate for laminectomy at L4-5. Patient elected to (units unknown) (unknown) (unknown) (no date) (unknown) (unknown) weak (units unknown) (unknown) (unknown) (no date) (unknown) (unknown) well as treatm ent options including medications, physical therapy/exercise, (units unknown) (unknown) (unknown) (no date) (unknown) (unknown) with future tr eatment planning. [] (units unknown) (unknown) Result panel 7 (unknown) (no date) (unknown) (unknown) (no value) (units unknown) (unknown) (unknown) (no date) (unknown) (unknown) (0=absent, 1=s light response, 2=brisk/normal, 3=very brisk, 4=clonus) (units unknown) (unknown) (unknown) (no date) (unknown) (unknown) (segments are from the International Standards for Neurological Classification (units unknown) (unknown) (unknown) (no date) (unknown) (unknown) - Activity: Co ntinue activity as tolerated. [] (units unknown) (unknown) (unknown) (no date) (unknown) (unknown) - Chiropractor , acupuncture[] (units unknown) (unknown) (unknown) (no date) (unknown) (unknown) - Continues cl inician directed home exercise program including exercises learned (units unknown) (unknown) (unknown) (no date) (unknown) (unknown) - Education: C auda equina and associated symptoms, including motor weakness, (units unknown) (unknown) (unknown) (no date) (unknown) (unknown) - FADIR: [(-/+ ) on the R side / L side / bilaterally] (units unknown) (unknown) (unknown) (no date) (unknown) (unknown) - Follow-up: [] (uni ts unknown) (unknown) (unknown) (no date) (unknown) (unknown) - Hip ROM is: [WNL / limited and painful on the R sided / L side / bilaterally] (units unknown) (unknown) (unknown) (no date) (unknown) (unknown) - I discussed risks, benefits and side effects. Additionally, patient was (units unknown) (unknown) (unknown) (no date) (unknown) (unknown) - Imaging: No new imaging indicated at this time. [] (units unknown) (unknown) (unknown) (no date) (unknown) (unknown) - Interventional/Surgica l procedures: None indicated at this time. [] (units unknown) (unknown) (unknown) (no date) (unknown) (unknown) - Lumbar facet loading: [(-/+) on the R side / L side / bilaterally] (units unknown) (unknown) (unknown) (no date) (unknown) (unknown) - Medications: No new prescription at this time. Patient will continue current (units unknown) (unknown) (unknown) (no date) (unknown) (unknown) - Medications: acetaminophen, NSAIDS, neuropathics, muscle relaxants [] (units unknown) (unknown) (unknown) (no date) (unknown) (unknown) - Physical The rapy: Completed 6 week course in the last 6 months OR Patient (units unknown) (unknown) (unknown) (no date) (unknown) (unknown) - Physical therapy/modalities/DME : Patient will likely benefit from physical (units unknown) (unknown) (unknown) (no date) (unknown) (unknown) - Prescription provided and uptitration instructions given if necessary. [] (units unknown) (unknown) (unknown) (no date) (unknown) (unknown) - Previous [] on [] provided []% relief of pain for the expected duration of the (units unknown) (unknown) (unknown) (no date) (unknown) (unknown) - Referrals: N one indicated at this time. [] (units unknown) (unknown) (unknown) (no date) (unknown) (unknown) - SIJ provocat ion testing: [ (+/-) Kristen's finger test, posterior thrust, (units unknown) (unknown) (unknown) (no date) (unknown) (unknown) - Straight Leg Raise: [(-/+) on the L side / R side / bilaterally] (units unknown) (unknown) (unknown) (no date) (unknown) (unknown) [id number] (units unknown) (unknown) (unknown) (no date) (unknown) (unknown) 10/16/22 [Hist ory Confirmed 10/16/22] (units unknown) (unknown) (unknown) (no date) (unknown) (unknown) 10/16/22 (units unknown) (unknown) (unknown) (no date) (unknown) (unknown) 10/16/22] (units unknown) (unknown) (unknown) (no date) (unknown) (unknown) 1.?Multilevel? degenera tive?disc?and?facet?di sease,?as?well?as?liga mentum?flavum? (units unknown) (unknown) (unknown) (no date) (unknown) (unknown) 1.Limited?rang e?of?mot ion?and?multilevel?lum bar?spine?spondylosis, ?most?notably? (units unknown) (unknown) (unknown) (no date) (unknown) (unknown) 13:16 (units unknown) (unknown) (unknown) (no date) (unknown) (unknown) 2.?Multilevel? canal?st enoses,?worst?at?L4-L5 ?where?there?is?severe ?canal?stenosi (units unknown) (unknown) (unknown) (no date) (unknown) (unknown) ,?14:34. (uni ts unknown) (unknown) (unknown) (no date) (unknown) (unknown) 3.?Multilevel? foramina l?stenoses,?worst?at?L 5 (units unknown) (unknown) (unknown) (no date) (unknown) (unknown) 4.??Left?iliop soas?mus ronald?atrophy.?? (units unknown) (unknown) (unknown) (no date) (unknown) (unknown) ? Inspection - ? No gross appendicular or axial deformities (units unknown) (unknown) (unknown) (no date) (unknown) (unknown) ? Palpation -? [Tender to palpation of / No tenderness to palpation] (units unknown) (unknown) (unknown) (no date) (unknown) (unknown) ? ROM - [Lumba r flexion/ extension/ lateral rotation is limited due to pain / (units unknown) (unknown) (unknown) (no date) (unknown) (unknown) ? Special tests (uni ts unknown) (unknown) (unknown) (no date) (unknown) (unknown) ?09/20/2022?at?15:01 (units unknown) (unknown) (unknown) (no date) (unknown) (unknown) ??5?lumbar?typ e?verteb ral?bodies?are?present ?by?plain?film.??There ?is?loss?of?no (units unknown) (unknown) (unknown) (no date) (unknown) (unknown) ??5?nonrib-viviana ring?bre tebrae?are?present.??3 ?mm?retrolisthesis?L2- L3,?L3-L4?and? (units unknown) (unknown) (unknown) (no date) (unknown) (unknown) ??5?views?of?t he?lumba r?spine?acquired,?incl uding?flexion?and?exte nsion?views.? (units unknown) (unknown) (unknown) (no date) (unknown) (unknown) ? Acetaminophen -denies (units unknown) (unknown) (unknown) (no date) (unknown) (unknown) ? Antidepressants -current (units unknown) (unknown) (unknown) (no date) (unknown) (unknown) ? Antiepileptics -current (units unknown) (unknown) (unknown) (no date) (unknown) (unknown) ? Mu scle Relaxants -cyclobenzaprine (units unknown) (unknown) (unknown) (no date) (unknown) (unknown) ? NS AIDs -current (units unknown) (unknown) (unknown) (no date) (unknown) (unknown) ? Op ioids -denies (units unknown) (unknown) (unknown) (no date) (unknown) (unknown) ? St eroids -denies (units unknown) (unknown) (unknown) (no date) (unknown) (unknown) ? To picals -denies (units unknown) (unknown) (unknown) (no date) (unknown) (unknown) ???Transcribed ?by:?PAULINE- MORAN?on?07/24/2022?at ?14:50?Approved?by: ?Leonel?Luisa, (units unknown) (unknown) (unknown) (no date) (unknown) (unknown) ??Conus?medull cade?ter minates?at?the?lower?L 1?level.??Visualized?c ord?demonstrat (units unknown) (unknown) (unknown) (no date) (unknown) (unknown) ??[place]?is?of ?normal? overall?signal.??No?ac [place]?vertebral?body?com pression?fract (units unknown) (unknown) (unknown) (no date) (unknown) (unknown) ??Moderate?dis c?desicc ation.??Mild?disc?heig ht?loss?and?diffuse?di sc?bulge.??Mil (units unknown) (unknown) (unknown) (no date) (unknown) (unknown) ??Moderate?dis c?desicc ation.??Mild?disc?heig ht?loss?and?diffuse?di sc?bulge.??Mod (units unknown) (unknown) (unknown) (no date) (unknown) (unknown) ??Moderate?dis c?height ?loss?and?desiccation. ??Mild?diffuse?disc?bu lge.??Mild?fac (units unknown) (unknown) (unknown) (no date) (unknown) (unknown) ??Moderate?dis c?height ?loss?and?desiccation. ??No?significant?canal ,?or?foraminal (units unknown) (unknown) (unknown) (no date) (unknown) (unknown) ??No?paraverte bral?mas ses.??There?is?asymmet david?left?ileo?psoas?at rophy. (units unknown) (unknown) (unknown) (no date) (unknown) (unknown) ??Overlying?israel wel?gas? pattern?is?normal.??No ?suspicious?soft?tissu e?calcificatio (units unknown) (unknown) (unknown) (no date) (unknown) (unknown) ??[facility],?CR,?XR?LUMBAR?SPIN E?WITH?FLEXION?EXTENSI ON?5?VIEWS,?1/ (units unknown) (unknown) (unknown) (no date) (unknown) (unknown) ??There?is?sanchez ited?ran ge?of?motion,?with?pre served?normal?alignmen t.?? (units unknown) (unknown) (unknown) (no date) (unknown) (unknown) ?M.D.?on?2022?at? 15:37??? (units unknown) (unknown) (unknown) (no date) (unknown) (unknown) ?at?the?L5-S1? level.?? Moderate?facet?petros (units unknown) (unknown) (unknown) (no date) (unknown) (unknown) ?canal?stenosi s.??Mode rate?bilateral?foramin al?stenosis. (units unknown) (unknown) (unknown) (no date) (unknown) (unknown) ?stenosis. (units unknown) (unknown) (unknown) (no date) (unknown) (unknown) ?subarticular? foramina l?stenosis?bilaterally . (units unknown) (unknown) (unknown) (no date) (unknown) (unknown) Accompanied by : Self / Same As Patient (units unknown) (unknown) (unknown) (no date) (unknown) (unknown) Age/Sex: 67 / F Date of Service: (units unknown) (unknown) (unknown) (no date) (unknown) (unknown) Aggravating fa ctors include: standing, walking (units unknown) (unknown) (unknown) (no date) (unknown) (unknown) Alignment?and? [place]: (units unknown) (unknown) (unknown) (no date) (unknown) (unknown) All other syst ems reviewed and are unremarkable except as noted in HPI. (units unknown) (unknown) (unknown) (no date) (unknown) (unknown) Allergies (units unknown) (unknown) (unknown) (no date) (unknown) (unknown) Amitriptyline 10 mg (units unknown) (unknown) (unknown) (no date) (unknown) (unknown) [place] [id number] (units unknown) (unknown) (unknown) (no date) (unknown) (unknown) Assessment + Plan (u nits unknown) (unknown) (unknown) (no date) (unknown) (unknown) Assessment: (units unknown) (unknown) (unknown) (no date) (unknown) (unknown) Attending Dr: Robin Morel MD (units unknown) (unknown) (unknown) (no date) (unknown) (unknown) BMI 40.8 (units unknown) (unknown) (unknown) (no date) (unknown) (unknown) BP 156/90 H (units unknown) (unknown) (unknown) (no date) (unknown) (unknown) Erika's Caitlin ngoing Downgoing (units unknown) (unknown) (unknown) (no date) (unknown) (unknown) Bilateral?hip? arthropl asties?incompletely?vi sualized. (units unknown) (unknown) (unknown) (no date) (unknown) (unknown) Blood Pressure Location Rt brachial (units unknown) (unknown) (unknown) (no date) (unknown) (unknown) Bone?Marrow: (units unknown) (unknown) (unknown) (no date) (unknown) (unknown) Bones: (units unknown) (unknown) (unknown) (no date) (unknown) (unknown) Bowel and blad jonah: Chronic bladder incontinence (units unknown) (unknown) (unknown) (no date) (unknown) (unknown) COMPARISON: (units unknown) (unknown) (unknown) (no date) (unknown) (unknown) COMPARISON:??None. ( units unknown) (unknown) (unknown) (no date) (unknown) (unknown) Cardiovascular : No edema or cyanosis. 2+ peripheral pulses (units unknown) (unknown) (unknown) (no date) (unknown) (unknown) Chart review: (units unknown) (unknown) (unknown) (no date) (unknown) (unknown) Judi is a 67-year-old female with a history of chronic low back pain, lumbar (units unknown) (unknown) (unknown) (no date) (unknown) (unknown) Chief Complaint (uni ts unknown) (unknown) (unknown) (no date) (unknown) (unknown) Chief Complain t: Low back and leg pain (units unknown) (unknown) (unknown) (no date) (unknown) (unknown) Chronic, inter mittent LBP with radiation to b/l legs without inciting event. (units unknown) (unknown) (unknown) (no date) (unknown) (unknown) Clonus None None (un its unknown) (unknown) (unknown) (no date) (unknown) (unknown) Confirmed 10/16/22] (units unknown) (unknown) (unknown) (no date) (unknown) (unknown) Conservative management includes: (units unknown) (unknown) (unknown) (no date) (unknown) (unknown) Continue [facility] physical therapy. [] (units unknown) (unknown) (unknown) (no date) (unknown) (unknown) Continue home exercise program. [] (units unknown) (unknown) (unknown) (no date) (unknown) (unknown) : 7 Acct:[id number] (units unknown) (unknown) (unknown) (no date) (unknown) (unknown) Denies recent trauma, fever or weight loss of unknown origin, immunocompromise (units unknown) (unknown) (unknown) (no date) (unknown) (unknown) Denies (units unknown) (unknown) (unknown) (no date) (unknown) (unknown) Dept at . (units unknown) (unknown) (unknown) (no date) (unknown) (unknown) Details: (units unknown) (unknown) (unknown) (no date) (unknown) (unknown) Diclofenac 75 mg (un its unknown) (unknown) (unknown) (no date) (unknown) (unknown) Documented By: Robin Morel MD 10/15/22 1511 (units unknown) (unknown) (unknown) (no date) (unknown) (unknown) Draft (units unknown) (unknown) (unknown) (no date) (unknown) (unknown) Exam Narrative (unit s unknown) (unknown) (unknown) (no date) (unknown) (unknown) Exam Narrative: (uni ts unknown) (unknown) (unknown) (no date) (unknown) (unknown) Exam (units unknown) (unknown) (unknown) (no date) (unknown) (unknown) Fay [place] n's, Pelvic rocking on the R/L side / bilaterally] (units unknown) (unknown) (unknown) (no date) (unknown) (unknown) FINDINGS:?? (units unknown) (unknown) (unknown) (no date) (unknown) (unknown) Flexion/extension: ( units unknown) (unknown) (unknown) (no date) (unknown) (unknown) Gait/Station - [Non-antalgic gait. Heel (L5 strength) and toe (S1 strength) (units unknown) (unknown) (unknown) (no date) (unknown) (unknown) General: Well-nourished, well-developed, female in no acute distress (units unknown) (unknown) (unknown) (no date) (unknown) (unknown) HPI (units unknown) (unknown) (unknown) (no date) (unknown) (unknown) Height 5 ft 7 in (un its unknown) (unknown) (unknown) (no date) (unknown) (unknown) IMPRESSION:?? (units unknown) (unknown) (unknown) (no date) (unknown) (unknown) INDICATIONS:?? lumbar?p ain (units unknown) (unknown) (unknown) (no date) (unknown) (unknown) INDICATIONS:??pain ( units unknown) (unknown) (unknown) (no date) (unknown) (unknown) Image?quality: ??Excell ent.?? (units unknown) (unknown) (unknown) (no date) (unknown) (unknown) Injections: (units unknown) (unknown) (unknown) (no date) (unknown) (unknown) Instructions P O PER PKG DIR radiculopathy #21 ea 10/16/22 [Rx Confirmed (units unknown) (unknown) (unknown) (no date) (unknown) (unknown) Intake Clinical Staf f (units unknown) (unknown) (unknown) (no date) (unknown) (unknown) Intake Note: (units unknown) (unknown) (unknown) (no date) (unknown) (unknown) Intake perform ed by: Gisselle Gastelum (units unknown) (unknown) (unknown) (no date) (unknown) (unknown) Intake (units unknown) (unknown) (unknown) (no date) (unknown) (unknown) Intervention: Date: Outcome: (units unknown) (unknown) (unknown) (no date) (unknown) (unknown) Is patient in pain?: Yes Pain scale (1-10): 6 (units unknown) (unknown) (unknown) (no date) (unknown) (unknown) JUSTIFICATION OF MEDICAL NECESSITY (units unknown) (unknown) (unknown) (no date) (unknown) (unknown) L-spine/T-spin e/C-spin e MRI ordered to better delineate the anatomy and help (units unknown) (unknown) (unknown) (no date) (unknown) (unknown) L1-L2: (units unknown) (unknown) (unknown) (no date) (unknown) (unknown) L2 Hip Flexion 5/5 5/5? (units unknown) (unknown) (unknown) (no date) (unknown) (unknown) L2-L3: (units unknown) (unknown) (unknown) (no date) (unknown) (unknown) L3 Knee Extens ion 5/5 5/5 (units unknown) (unknown) (unknown) (no date) (unknown) (unknown) L3-L4: (units unknown) (unknown) (unknown) (no date) (unknown) (unknown) L4 Ankle Dorsi flexion 5/5 5/5 (units unknown) (unknown) (unknown) (no date) (unknown) (unknown) L4 Patella 2+ 2 (uni ts unknown) (unknown) (unknown) (no date) (unknown) (unknown) L4-L5: (units unknown) (unknown) (unknown) (no date) (unknown) (unknown) L5 Long Toe Ex tension 5/5 5/5 (units unknown) (unknown) (unknown) (no date) (unknown) (unknown) L5-S1.??Multil evel?dis c?height?loss?with?end plate?sclerosis?and?sp urring,?severe (units unknown) (unknown) (unknown) (no date) (unknown) (unknown) L5-S1: (units unknown) (unknown) (unknown) (no date) (unknown) (unknown) Loc: PAIN (units unknown) (unknown) (unknown) (no date) (unknown) (unknown) Lumbar radiculopathy (units unknown) (unknown) (unknown) (no date) (unknown) (unknown) Lyrica 150 mg (units unknown) (unknown) (unknown) (no date) (unknown) (unknown) MSK: System re viewed and no additional complaints, except as documented. (units unknown) (unknown) (unknown) (no date) (unknown) (unknown) Medical Histor y (units unknown) (unknown) (unknown) (no date) (unknown) (unknown) Medications (units unknown) (unknown) (unknown) (no date) (unknown) (unknown) Medications: (units unknown) (unknown) (unknown) (no date) (unknown) (unknown) Morphine Aller gy (Mild, Uncoded 10/16/22 13:06) (units unknown) (unknown) (unknown) (no date) (unknown) (unknown) Motor (units unknown) (unknown) (unknown) (no date) (unknown) (unknown) Musculoskeletal: (un its unknown) (unknown) (unknown) (no date) (unknown) (unknown) Neuro: System reviewed and no additional complaints, except as documented. (units unknown) (unknown) (unknown) (no date) (unknown) (unknown) Neurologic: (units unknown) (unknown) (unknown) (no date) (unknown) (unknown) New (units unknown) (unknown) (unknown) (no date) (unknown) (unknown) Noncontrast?sa gittal?T 1?spin?echo?and?T2?fas t?echo,?sagittal?STIR, ?and?T2?fast?s (units unknown) (unknown) (unknown) (no date) (unknown) (unknown) Not indicated at this time. [] (units unknown) (unknown) (unknown) (no date) (unknown) (unknown) Numbness/Tingl ing: b/l posterior thighs (units unknown) (unknown) (unknown) (no date) (unknown) (unknown) Objective Data (unit s unknown) (unknown) (unknown) (no date) (unknown) (unknown) Objective Data: (uni ts unknown) (unknown) (unknown) (no date) (unknown) (unknown) Onset/Context of haritha n: (units unknown) (unknown) (unknown) (no date) (unknown) (unknown) Onset: insidious (un its unknown) (unknown) (unknown) (no date) (unknown) (unknown) Orders (units unknown) (unknown) (unknown) (no date) (unknown) (unknown) Orders: (units unknown) (unknown) (unknown) (no date) (unknown) (unknown) Other: denies (units unknown) (unknown) (unknown) (no date) (unknown) (unknown) Oxygen Deliver y Method room air (units unknown) (unknown) (unknown) (no date) (unknown) (unknown) PAIN interlaminar/caudal inj Today M54.16 - Radiculopathy, lumbar region (units unknown) (unknown) (unknown) (no date) (unknown) (unknown) PATIENT IS HER E FOR LOW BACK PAIN (units unknown) (unknown) (unknown) (no date) (unknown) (unknown) PFSH (units unknown) (unknown) (unknown) (no date) (unknown) (unknown) PROCEDURE:??MR ?LUMBAR? SPINE?WITHOUT?CONTRAST (units unknown) (unknown) (unknown) (no date) (unknown) (unknown) PROCEDURE:??XR ?LUMBAR? SPINE?WITH?FLEXION?EXT ENSION?5?VIEWS (units unknown) (unknown) (unknown) (no date) (unknown) (unknown) PT: Aisha He alth 6 visits in the last 6 months (units unknown) (unknown) (unknown) (no date) (unknown) (unknown) Pain Scale (units unknown) (unknown) (unknown) (no date) (unknown) (unknown) Pain Visit (units unknown) (unknown) (unknown) (no date) (unknown) (unknown) Pain location/Radiation: low back pain radiating to b/l posterior thighs (units unknown) (unknown) (unknown) (no date) (unknown) (unknown) Pain ratin /10 today, 9/10 at worst (units unknown) (unknown) (unknown) (no date) (unknown) (unknown) Paraspinous?So ft?Tissu es: (units unknown) (unknown) (unknown) (no date) (unknown) (unknown) Patient will r eturn for []. Risks and benefits were discussed. (units unknown) (unknown) (unknown) (no date) (unknown) (unknown) Patient's pain has been present for >6 weeks and is an average of >6/10 on 0-10 (units unknown) (unknown) (unknown) (no date) (unknown) (unknown) Patient: JeffJudi Lyndon MR#: [id number] (units unknown) (unknown) (unknown) (no date) (unknown) (unknown) Penicillins Clarence tahmina (Verified 10/16/22 13:06) (units unknown) (unknown) (unknown) (no date) (unknown) (unknown) Pertinent medi cations include: (units unknown) (unknown) (unknown) (no date) (unknown) (unknown) Plan (units unknown) (unknown) (unknown) (no date) (unknown) (unknown) Plan/Recommendations : (units unknown) (unknown) (unknown) (no date) (unknown) (unknown) Position Sitting (un its unknown) (unknown) (unknown) (no date) (unknown) (unknown) Prescriptions Written: [] (units unknown) (unknown) (unknown) (no date) (unknown) (unknown) Previous pain treatments included: (units unknown) (unknown) (unknown) (no date) (unknown) (unknown) Psych: Appropr iate affect, answers questions appropriately (units unknown) (unknown) (unknown) (no date) (unknown) (unknown) Pulse 86 (units unknown) (unknown) (unknown) (no date) (unknown) (unknown) Pulse Oximetry (%) 9 6 (units unknown) (unknown) (unknown) (no date) (unknown) (unknown) Pulse Source Monitor (units unknown) (unknown) (unknown) (no date) (unknown) (unknown) Quality and ti alirio of pain: Back - sharp or dull, intermittent; Legs - hurt and (units unknown) (unknown) (unknown) (no date) (unknown) (unknown) REFERRAL FROM DR. JEAN LICONA (units unknown) (unknown) (unknown) (no date) (unknown) (unknown) ROS Narrative (units unknown) (unknown) (unknown) (no date) (unknown) (unknown) ROS Narrative: (unit s unknown) (unknown) (unknown) (no date) (unknown) (unknown) ROS (units unknown) (unknown) (unknown) (no date) (unknown) (unknown) Rash (units unknown) (unknown) (unknown) (no date) (unknown) (unknown) Reason For Visit (un its unknown) (unknown) (unknown) (no date) (unknown) (unknown) Red flag symptoms: ( units unknown) (unknown) (unknown) (no date) (unknown) (unknown) Reflex Right Left (u nits unknown) (unknown) (unknown) (no date) (unknown) (unknown) Reflexes: (units unknown) (unknown) (unknown) (no date) (unknown) (unknown) Relieving fact ors include: heat (units unknown) (unknown) (unknown) (no date) (unknown) (unknown) Respiratory: Non-labored breathing pattern on RA. No respiratory distress (units unknown) (unknown) (unknown) (no date) (unknown) (unknown) Reviewed?by:?J eff?Chof fel?RRA?Interpreted:?J ason?Luisa??on?07/24?at?14:49 (units unknown) (unknown) (unknown) (no date) (unknown) (unknown) Reviewed?by:?Johnathon lutz?Kyle,?M.D.?on?09/20/2022 ?at?14:57???Transcribe d?by:?CANNON?on (units unknown) (unknown) (unknown) (no date) (unknown) (unknown) S1 Achilles 2+ 2 (un its unknown) (unknown) (unknown) (no date) (unknown) (unknown) S1 Ankle Plantarflexion 5/5 5/5 (units unknown) (unknown) (unknown) (no date) (unknown) (unknown) S1?where?there ?is?asso ciated?intraforaminal? nerve?root?compression .?Recommend?co (units unknown) (unknown) (unknown) (no date) (unknown) (unknown) Saddle anesthe kelby: denies (units unknown) (unknown) (unknown) (no date) (unknown) (unknown) Segment Action Right Left (units unknown) (unknown) (unknown) (no date) (unknown) (unknown) Segment Reflex Right Left (units unknown) (unknown) (unknown) (no date) (unknown) (unknown) Sensory -? Int act to light touch of bilateral lower extremities. Allodynia (units unknown) (unknown) (unknown) (no date) (unknown) (unknown) Signed By: (units unknown) (unknown) (unknown) (no date) (unknown) (unknown) Skin: No appre ciable rashes or skin breakdown (units unknown) (unknown) (unknown) (no date) (unknown) (unknown) Smoking Status : Never smoker (units unknown) (unknown) (unknown) (no date) (unknown) (unknown) Soft?tissues: (units unknown) (unknown) (unknown) (no date) (unknown) (unknown) Spinal?Cord: (units unknown) (unknown) (unknown) (no date) (unknown) (unknown) Standing: incr eased LBP (units unknown) (unknown) (unknown) (no date) (unknown) (unknown) Surgery: denies (uni ts unknown) (unknown) (unknown) (no date) (unknown) (unknown) T12-L1: (units unknown) (unknown) (unknown) (no date) (unknown) (unknown) TECHNIQUE: (units unknown) (unknown) (unknown) (no date) (unknown) (unknown) TECHNIQUE:?? (units unknown) (unknown) (unknown) (no date) (unknown) (unknown) Temp 98.4 F (units unknown) (unknown) (unknown) (no date) (unknown) (unknown) Temp Source Te mporal Artery Scan (units unknown) (unknown) (unknown) (no date) (unknown) (unknown) [facility] (units unknown) (unknown) (unknown) (no date) (unknown) (unknown) This note may have been all or partially generated using voice recognition (units unknown) (unknown) (unknown) (no date) (unknown) (unknown) Tobacco + Subs tance Use (units unknown) (unknown) (unknown) (no date) (unknown) (unknown) Tobacco Status (unit s unknown) (unknown) (unknown) (no date) (unknown) (unknown) Today I have r eviewed available medical information in the patient's medical (units unknown) (unknown) (unknown) (no date) (unknown) (unknown) Tylenol (units unknown) (unknown) (unknown) (no date) (unknown) (unknown) Upper Motor Ne uron Signs: (units unknown) (unknown) (unknown) (no date) (unknown) (unknown) 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 (units unknown) (unknown) (unknown) (no date) (unknown) (unknown) We reviewed et iology, predisposing factor(s), natural course, imaging results as (units unknown) (unknown) (unknown) (no date) (unknown) (unknown) Weakness: denies (un its unknown) (unknown) (unknown) (no date) (unknown) (unknown) Weight 261 lb (units unknown) (unknown) (unknown) (no date) (unknown) (unknown) X-ray has been performed which is consistent with lumbar spondylosis, most (units unknown) (unknown) (unknown) (no date) (unknown) (unknown) [History Confi rmed 10/16/22] (units unknown) (unknown) (unknown) (no date) (unknown) (unknown) acetaminophen 500 mg tablet (Tylenol Extra Strength) 500 mg PO Q6H PRN 10/16/22 (units unknown) (unknown) (unknown) (no date) (unknown) (unknown) albuterol sulf ate 90 mcg/actuation aerosol inhaler 2 puff inhalation Q6H PRN (units unknown) (unknown) (unknown) (no date) (unknown) (unknown) amitriptyline 10 mg tablet 10 mg PO BEDTIME 10/16/22 [History Confirmed (units unknown) (unknown) (unknown) (no date) (unknown) (unknown) at?the?L5-S1?level. (units unknown) (unknown) (unknown) (no date) (unknown) (unknown) benefits of va rious treatment options were discussed with the patient in great (units unknown) (unknown) (unknown) (no date) (unknown) (unknown) bowel/bladder dysfunction, and perineal numbness were discussed. The patient was (units unknown) (unknown) (unknown) (no date) (unknown) (unknown) cannot tolerat e physical therapy at the current time due to the intensity of the (units unknown) (unknown) (unknown) (no date) (unknown) (unknown) cyclobenzaprin e 10 mg tablet 10 mg PO BEDTIME 10/16/22 [History Confirmed (units unknown) (unknown) (unknown) (no date) (unknown) (unknown) d?facet?and?li gamentum ?flavum?hypertrophy.?? Mild?epidural?lipomato sis.??Moderate (units unknown) (unknown) (unknown) (no date) (unknown) (unknown) detail. (units unknown) (unknown) (unknown) (no date) (unknown) (unknown) diclofenac sod ium 75 mg tablet,delayed release 75 mg PO BID PRN 10/16/22 (units unknown) (unknown) (unknown) (no date) (unknown) (unknown) enosis.??Mild? bilatera l?foraminal?stenosis. (units unknown) (unknown) (unknown) (no date) (unknown) (unknown) erate?facet?an d?ligame ntum?flavum?hypertroph y.??Severe?canal?steno sis.??Moderate (units unknown) (unknown) (unknown) (no date) (unknown) (unknown) es?normal?sign al?and?s ize.?? (units unknown) (unknown) (unknown) (no date) (unknown) (unknown) et?and?ligamen jolly?flav um?hypertrophy.??Mild? canal?stenosis.??Sever e?bilateral?fo (units unknown) (unknown) (unknown) (no date) (unknown) (unknown) et?and?ligamen jolly?flav um?hypertrophy.??Mild? epidural?lipomatosis.? ?Mild?canal?st (units unknown) (unknown) (unknown) (no date) (unknown) (unknown) et?and?ligamen jolly?flav um?hypertrophy.??Moder ate?canal?stenosis.??M ild?bilateral? (units unknown) (unknown) (unknown) (no date) (unknown) (unknown) facet arthropa thy who presents for further evaluation of low back and leg pain. (units unknown) (unknown) (unknown) (no date) (unknown) (unknown) foraminal?stenosis. (units unknown) (unknown) (unknown) (no date) (unknown) (unknown) have occurred. If there are any questions, please contact the Medical Records (units unknown) (unknown) (unknown) (no date) (unknown) (unknown) hypertrophy?an d?epidur al?lipomatosis. (units unknown) (unknown) (unknown) (no date) (unknown) (unknown) improved sleep , improved mobility, etc. (units unknown) (unknown) (unknown) (no date) (unknown) (unknown) in PT. [] (units unknown) (unknown) (unknown) (no date) (unknown) (unknown) instructed to report to the Emergency department, if these symptoms occur. (units unknown) (unknown) (unknown) (no date) (unknown) (unknown) instructed to stop if any side effects. [] (units unknown) (unknown) (unknown) (no date) (unknown) (unknown) intravenous dr ug use, sustained glucocorticoid use, osteoporosis, or a focal (units unknown) (unknown) (unknown) (no date) (unknown) (unknown) local anesthet ic. During that time patient able to participate in ADLs, had (units unknown) (unknown) (unknown) (no date) (unknown) (unknown) loratadine 10 mg tablet (Allergy Relief (loratadine)) 10 mg PO DAILY 10/16/22 (units unknown) (unknown) (unknown) (no date) (unknown) (unknown) may occur. Occ asional wrong-word or 'sound-alike' substitutions may have (units unknown) (unknown) (unknown) (no date) (unknown) (unknown) meds. [] (units unknown) (unknown) (unknown) (no date) (unknown) (unknown) methylpredniso lone (Medrol (Domingo)) PO PER PKG DIR 21 ea 0RF radiculopathy (units unknown) (unknown) (unknown) (no date) (unknown) (unknown) methylpredniso lone 4 mg tablets in a dose pack (Medrol (Domingo)) See Rx (units unknown) (unknown) (unknown) (no date) (unknown) (unknown) metoprolol suc cinate 25 mg tablet,extended release 24 hr 25 mg PO DAILY 10/16/22 (units unknown) (unknown) (unknown) (no date) (unknown) (unknown) nd?L5?on?S1. (units unknown) (unknown) (unknown) (no date) (unknown) (unknown) negative, Hype ralgesia - negative (units unknown) (unknown) (unknown) (no date) (unknown) (unknown) neurological d eficit with progressive or disabling symptoms. (units unknown) (unknown) (unknown) (no date) (unknown) (unknown) ns.??Cholecyst ectomy?c lips. (units unknown) (unknown) (unknown) (no date) (unknown) (unknown) nt?arthropathy ?L4-L5?a nd?L5-S1.??No?vertebra l?body?compression?fra ctures.??No?jansen (units unknown) (unknown) (unknown) (no date) (unknown) (unknown) occurred due t o the inherent limitations of voice recognition software. Please (units unknown) (unknown) (unknown) (no date) (unknown) (unknown) of Spinal Cord Injur y) (units unknown) (unknown) (unknown) (no date) (unknown) (unknown) omeprazole 20 mg capsule,delayed release 20 mg PO DAILY 10/16/22 [History (units unknown) (unknown) (unknown) (no date) (unknown) (unknown) onal?T2?fast?s pin?echo ?may?be?performed.?? (units unknown) (unknown) (unknown) (no date) (unknown) (unknown) or immunosuppr essive therapy, previous or current cancer diagnosis, history of (units unknown) (unknown) (unknown) (no date) (unknown) (unknown) pain. [] (units unknown) (unknown) (unknown) (no date) (unknown) (unknown) pin?echo?throu gh?the?l umbar?spine.??In?cases ?with?scoliosis,?addit ional?cor (units unknown) (unknown) (unknown) (no date) (unknown) (unknown) pregabalin 150 mg capsule 150 mg PO BID 10/16/22 [History Confirmed 10/16/22] (units unknown) (unknown) (unknown) (no date) (unknown) (unknown) racic?spine. (units unknown) (unknown) (unknown) (no date) (unknown) (unknown) radiculopathy, lumbar spinal stenosis with neurogenic claudication and lumbar (units unknown) (unknown) (unknown) (no date) (unknown) (unknown) raminal?stenos is?with? bilateral?L5?nerve?ghanshyam t?compression. (units unknown) (unknown) (unknown) (no date) (unknown) (unknown) read the note carefully and recognize, using context, where these substitutions (units unknown) (unknown) (unknown) (no date) (unknown) (unknown) record, includ ing relevant provider notes, laboratory work, and imaging. (units unknown) (unknown) (unknown) (no date) (unknown) (unknown) rmal?lumbar?lo rdosis.? ?3?mm?of?retrolisthesi s?of?L1?on?L2,?L2?on?L 3,?L3?on?L4,?a (units unknown) (unknown) (unknown) (no date) (unknown) (unknown) rrelation?with ?clinica l?symptoms?to?ascertai n?relevance?of?this?fi nding.? (units unknown) (unknown) (unknown) (no date) (unknown) (unknown) s.??Moderate?c anal?james nosis?at?L2-L3?and?L3- L4. (units unknown) (unknown) (unknown) (no date) (unknown) (unknown) scale and/or p ain interferes with ADLs. (units unknown) (unknown) (unknown) (no date) (unknown) (unknown) severe at the L5-S1 level. MRI concerning for multilevel central canal (units unknown) (unknown) (unknown) (no date) (unknown) (unknown) software. 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 lesions. ?? (units unknown) (unknown) (unknown) (no date) (unknown) (unknown) stability intact.] ( units unknown) (unknown) (unknown) (no date) (unknown) (unknown) stenosis at L5 -S1. She is seen by Dr. Licona with Orthopedic spine surgery and (units unknown) (unknown) (unknown) (no date) (unknown) (unknown) stenosis, wors e at L4-5 and L5-S1. There is also bilateral neural foraminal (units unknown) (unknown) (unknown) (no date) (unknown) (unknown) therapeutic in jections and surgery. The risks, consequences, alternatives and (units unknown) (unknown) (unknown) (no date) (unknown) (unknown) therapy. ?A re ferral was provided for the patient. [] (units unknown) (unknown) (unknown) (no date) (unknown) (unknown) ures.??Mild?re active?s ignal?throughout?the?e ndplates?of?the?lumbar ?and?lower?tho (units unknown) (unknown) (unknown) (no date) (unknown) (unknown) wait for surge ry until after consultation with pain management. (units unknown) (unknown) (unknown) (no date) (unknown) (unknown) walking intact . Tandem gait normal without evidence of ataxia. Lower quarter (units unknown) (unknown) (unknown) (no date) (unknown) (unknown) was felt to be a surgical candidate for laminectomy at L4-5. Patient elected to (units unknown) (unknown) (unknown) (no date) (unknown) (unknown) weak (units unknown) (unknown) (unknown) (no date) (unknown) (unknown) well as treatm ent options including medications, physical therapy/exercise, (units unknown) (unknown) (unknown) (no date) (unknown) (unknown) with future tr eatment planning. [] (units unknown) (unknown) Result panel 8 (unknown) (no date) (unknown) (unknown) (no value) (units unknown) (unknown) (unknown) (no date) (unknown) (unknown) (0=absent, 1=s light response, 2=brisk/normal, 3=very brisk, 4=clonus) (units unknown) (unknown) (unknown) (no date) (unknown) (unknown) (1) Lumbar radiculopathy: (units unknown) (unknown) (unknown) (no date) (unknown) (unknown) (2) Low back pain: ( units unknown) (unknown) (unknown) (no date) (unknown) (unknown) (segments are from the International Standards for Neurological Classification (units unknown) (unknown) (unknown) (no date) (unknown) (unknown) - Activity: Co ntinue activity as tolerated. (units unknown) (unknown) (unknown) (no date) (unknown) (unknown) - Continues cl inician directed home exercise program including exercises learned (units unknown) (unknown) (unknown) (no date) (unknown) (unknown) - Education: C auda equina and associated symptoms, including motor weakness, (units unknown) (unknown) (unknown) (no date) (unknown) (unknown) - FADIR: Negat eileen bilaterally (units unknown) (unknown) (unknown) (no date) (unknown) (unknown) - Follow-up: After E SI (units unknown) (unknown) (unknown) (no date) (unknown) (unknown) - Hip ROM is: Within normal limits (units unknown) (unknown) (unknown) (no date) (unknown) (unknown) - I discussed risks, benefits and side effects. Additionally, patient was (units unknown) (unknown) (unknown) (no date) (unknown) (unknown) - Imaging: No new imaging indicated at this time. (units unknown) (unknown) (unknown) (no date) (unknown) (unknown) - Interventional/Surgica l procedures: Patient will return for L5-S1 interlaminar (units unknown) (unknown) (unknown) (no date) (unknown) (unknown) - Lumbar facet loading: Positive bilaterally (units unknown) (unknown) (unknown) (no date) (unknown) (unknown) - Medications: Prescriptions Written: Medrol Dosepak (units unknown) (unknown) (unknown) (no date) (unknown) (unknown) - Medications: acetaminophen, NSAIDS, neuropathics, muscle relaxants (units unknown) (unknown) (unknown) (no date) (unknown) (unknown) - Physical The rapy: Completed 6 week course in the last 6 months (units unknown) (unknown) (unknown) (no date) (unknown) (unknown) - Physical therapy/modalities/DME : Continue home exercise program. (units unknown) (unknown) (unknown) (no date) (unknown) (unknown) - Prescription provided and uptitration instructions given if necessary. (units unknown) (unknown) (unknown) (no date) (unknown) (unknown) - Referrals: N one indicated at this time. (units unknown) (unknown) (unknown) (no date) (unknown) (unknown) - SIJ provocat ion testing: Negative bilaterally (units unknown) (unknown) (unknown) (no date) (unknown) (unknown) - Straight Leg Raise: Positive for leg pain on the left (units unknown) (unknown) (unknown) (no date) (unknown) (unknown) .??Moderate?fa cet?join t?arthropathy?L4-L5?an d?L5-S1.??No?vertebral ?body?compress (units unknown) (unknown) (unknown) (no date) (unknown) (unknown) [id number] (units unknown) (unknown) (unknown) (no date) (unknown) (unknown) 10/16/22 1646 (units unknown) (unknown) (unknown) (no date) (unknown) (unknown) 10/16/22 [Hist ory Confirmed 10/16/22] (units unknown) (unknown) (unknown) (no date) (unknown) (unknown) 10/16/22 (units unknown) (unknown) (unknown) (no date) (unknown) (unknown) 10/16/22] (units unknown) (unknown) (unknown) (no date) (unknown) (unknown) 1.?Multilevel? degenera tive?disc?and?facet?di sease,?as?well?as?liga mentum?flavum? (units unknown) (unknown) (unknown) (no date) (unknown) (unknown) 1.Limited?rang e?of?mot ion?and?multilevel?lum bar?spine?spondylosis, ?most?notably? (units unknown) (unknown) (unknown) (no date) (unknown) (unknown) 13:16 (units unknown) (unknown) (unknown) (no date) (unknown) (unknown) 15:37??? (units unknown) (unknown) (unknown) (no date) (unknown) (unknown) 2.?Multilevel? canal?st enoses,?worst?at?L4-L5 ?where?there?is?severe ?canal?stenosi (units unknown) (unknown) (unknown) (no date) (unknown) (unknown) ,?14:34. (uni ts unknown) (unknown) (unknown) (no date) (unknown) (unknown) 3.?Multilevel? foramina l?stenoses,?worst?at?L 5 (units unknown) (unknown) (unknown) (no date) (unknown) (unknown) 4.??Left?iliop soas?mus ronald?atrophy.?? (units unknown) (unknown) (unknown) (no date) (unknown) (unknown) ? Inspection - ? No gross appendicular or axial deformities (units unknown) (unknown) (unknown) (no date) (unknown) (unknown) ? Palpation -n o tenderness to palpation (units unknown) (unknown) (unknown) (no date) (unknown) (unknown) ? ROM -lumbar extension limited due to pain (units unknown) (unknown) (unknown) (no date) (unknown) (unknown) ? Special tests (uni ts unknown) (unknown) (unknown) (no date) (unknown) (unknown) ?09/20/2022?at?15:01 (units unknown) (unknown) (unknown) (no date) (unknown) (unknown) ??5?lumbar?typ e?verteb ral?bodies?are?present ?by?plain?film.??There ?is?loss?of?no (units unknown) (unknown) (unknown) (no date) (unknown) (unknown) ??5?nonrib-viviana ring?bre tebrae?are?present.??3 ?mm?retrolisthesis?L2- L3,?L3-L4?and? (units unknown) (unknown) (unknown) (no date) (unknown) (unknown) ??5?views?of?t he?lumba r?spine?acquired,?incl uding?flexion?and?exte nsion?views.? (units unknown) (unknown) (unknown) (no date) (unknown) (unknown) ? Acetaminophen -denies (units unknown) (unknown) (unknown) (no date) (unknown) (unknown) ? Antidepressants -current (units unknown) (unknown) (unknown) (no date) (unknown) (unknown) ? Antiepileptics -current (units unknown) (unknown) (unknown) (no date) (unknown) (unknown) ? Mu scle Relaxants -cyclobenzaprine (units unknown) (unknown) (unknown) (no date) (unknown) (unknown) ? NS AIDs -current (units unknown) (unknown) (unknown) (no date) (unknown) (unknown) ? Op ioids -denies (units unknown) (unknown) (unknown) (no date) (unknown) (unknown) ? St eroids -denies (units unknown) (unknown) (unknown) (no date) (unknown) (unknown) ? To picals -denies (units unknown) (unknown) (unknown) (no date) (unknown) (unknown) ???Transcribed?by:?J C (units unknown) (unknown) (unknown) (no date) (unknown) (unknown) ??Conus?medull cade?ter minates?at?the?lower?L 1?level.??Visualized?c ord?demonstrat (units unknown) (unknown) (unknown) (no date) (unknown) (unknown) ??Marrow?is?of ?normal? overall?signal.??No?ac [place]?vertebral?body?com pression?fract (units unknown) (unknown) (unknown) (no date) (unknown) (unknown) ??Moderate?dis c?desicc ation.??Mild?disc?heig ht?loss?and?diffuse?di sc?bulge.??Mil (units unknown) (unknown) (unknown) (no date) (unknown) (unknown) ??Moderate?dis c?desicc ation.??Mild?disc?heig ht?loss?and?diffuse?di sc?bulge.??Mod (units unknown) (unknown) (unknown) (no date) (unknown) (unknown) ??Moderate?dis c?height ?loss?and?desiccation. ??Mild?diffuse?disc?bu lge.??Mild?fac (units unknown) (unknown) (unknown) (no date) (unknown) (unknown) ??Moderate?dis c?height ?loss?and?desiccation. ??No?significant?canal ,?or?foraminal (units unknown) (unknown) (unknown) (no date) (unknown) (unknown) ??No?paraverte bral?mas ses.??There?is?asymmet david?left?ileo?psoas?at rophy. (units unknown) (unknown) (unknown) (no date) (unknown) (unknown) ??Overlying?israel wel?gas? pattern?is?normal.??No ?suspicious?soft?tissu e?calcificatio (units unknown) (unknown) (unknown) (no date) (unknown) (unknown) ??[facility],?CR,?XR?LUMBAR?SPIN E?WITH?FLEXION?EXTENSI ON?5?VIEWS,?1/ (units unknown) (unknown) (unknown) (no date) (unknown) (unknown) ??There?is?sanchez ited?ran ge?of?motion,?with?pre served?normal?alignmen t.?? (units unknown) (unknown) (unknown) (no date) (unknown) (unknown) ?at?the?L5-S1?level (units unknown) (unknown) (unknown) (no date) (unknown) (unknown) ?canal?stenosi s.??Mode rate?bilateral?foramin al?stenosis. (units unknown) (unknown) (unknown) (no date) (unknown) (unknown) ?stenosis. (units unknown) (unknown) (unknown) (no date) (unknown) (unknown) ?subarticular? foramina l?stenosis?bilaterally . (units unknown) (unknown) (unknown) (no date) (unknown) (unknown) Accompanied by : Self / Same As Patient (units unknown) (unknown) (unknown) (no date) (unknown) (unknown) Age/Sex: 67 / F Date of Service: (units unknown) (unknown) (unknown) (no date) (unknown) (unknown) Aggravating fa ctors include: standing, walking (units unknown) (unknown) (unknown) (no date) (unknown) (unknown) Alignment?and? [place]: (units unknown) (unknown) (unknown) (no date) (unknown) (unknown) All other syst ems reviewed and are unremarkable except as noted in HPI. (units unknown) (unknown) (unknown) (no date) (unknown) (unknown) Allergies (units unknown) (unknown) (unknown) (no date) (unknown) (unknown) Amitriptyline 10 mg (units unknown) (unknown) (unknown) (no date) (unknown) (unknown) [place] [id number] (units unknown) (unknown) (unknown) (no date) (unknown) (unknown) Assessment + Plan (u nits unknown) (unknown) (unknown) (no date) (unknown) (unknown) Assessment: (units unknown) (unknown) (unknown) (no date) (unknown) (unknown) Attending Dr: Robin Morel MD (units unknown) (unknown) (unknown) (no date) (unknown) (unknown) BMI 40.8 (units unknown) (unknown) (unknown) (no date) (unknown) (unknown) BP 156/90 H (units unknown) (unknown) (unknown) (no date) (unknown) (unknown) Babinski's Caitlin ngoing Downgoing (units unknown) (unknown) (unknown) (no date) (unknown) (unknown) Bilateral?hip? arthropl asties?incompletely?vi sualized. (units unknown) (unknown) (unknown) (no date) (unknown) (unknown) Blood Pressure Location Rt brachial (units unknown) (unknown) (unknown) (no date) (unknown) (unknown) Bone?Marrow: (units unknown) (unknown) (unknown) (no date) (unknown) (unknown) Bones: (units unknown) (unknown) (unknown) (no date) (unknown) (unknown) Bowel and blad jonah: Chronic bladder incontinence (units unknown) (unknown) (unknown) (no date) (unknown) (unknown) COMPARISON: (units unknown) (unknown) (unknown) (no date) (unknown) (unknown) COMPARISON:??None. ( units unknown) (unknown) (unknown) (no date) (unknown) (unknown) Cardiovascular : No edema or cyanosis. 2+ peripheral pulses (units unknown) (unknown) (unknown) (no date) (unknown) (unknown) Chart review: (units unknown) (unknown) (unknown) (no date) (unknown) (unknown) Judi is a 67-year-old female presenting for further evaluation of chronic low (units unknown) (unknown) (unknown) (no date) (unknown) (unknown) Judi is a 67-year-old female with a history of chronic low back pain, lumbar (units unknown) (unknown) (unknown) (no date) (unknown) (unknown) Chief Complaint (uni ts unknown) (unknown) (unknown) (no date) (unknown) (unknown) Chief Complain t: Low back and leg pain (units unknown) (unknown) (unknown) (no date) (unknown) (unknown) Chronic, inter mittent LBP with radiation to b/l legs without inciting event. (units unknown) (unknown) (unknown) (no date) (unknown) (unknown) Chronicity: ch ronic Back pain laterality: bilateral Sciatica presence: (units unknown) (unknown) (unknown) (no date) (unknown) (unknown) Clonus None None (un its unknown) (unknown) (unknown) (no date) (unknown) (unknown) Confirmed 10/16/22] (units unknown) (unknown) (unknown) (no date) (unknown) (unknown) Conservative management includes: (units unknown) (unknown) (unknown) (no date) (unknown) (unknown) : 7 Acct:[id number] (units unknown) (unknown) (unknown) (no date) (unknown) (unknown) Denies recent trauma, fever or weight loss of unknown origin, immunocompromise (units unknown) (unknown) (unknown) (no date) (unknown) (unknown) Denies (units unknown) (unknown) (unknown) (no date) (unknown) (unknown) Dept at . (units unknown) (unknown) (unknown) (no date) (unknown) (unknown) Details: (units unknown) (unknown) (unknown) (no date) (unknown) (unknown) Diclofenac 75 mg (un its unknown) (unknown) (unknown) (no date) (unknown) (unknown) Documented By: Robin Morel MD 10/16/22 8747 (units unknown) (unknown) (unknown) (no date) (unknown) (unknown) ANJEL. Risks and benefits were discussed. (units unknown) (unknown) (unknown) (no date) (unknown) (unknown) Exam Narrative (unit s unknown) (unknown) (unknown) (no date) (unknown) (unknown) Exam Narrative: (uni ts unknown) (unknown) (unknown) (no date) (unknown) (unknown) Exam (units unknown) (unknown) (unknown) (no date) (unknown) (unknown) FINDINGS:?? (units unknown) (unknown) (unknown) (no date) (unknown) (unknown) Flexion/extension: ( units unknown) (unknown) (unknown) (no date) (unknown) (unknown) Gait/Station - Non-antalgic gait. Heel (L5 strength) and toe (S1 strength) (units unknown) (unknown) (unknown) (no date) (unknown) (unknown) General: Well-nourished, well-developed, female in no acute distress (units unknown) (unknown) (unknown) (no date) (unknown) (unknown) HPI (units unknown) (unknown) (unknown) (no date) (unknown) (unknown) Height 5 ft 7 in (un its unknown) (unknown) (unknown) (no date) (unknown) (unknown) IMPRESSION:?? (units unknown) (unknown) (unknown) (no date) (unknown) (unknown) INDICATIONS:?? lumbar?p ain (units unknown) (unknown) (unknown) (no date) (unknown) (unknown) INDICATIONS:??pain ( units unknown) (unknown) (unknown) (no date) (unknown) (unknown) Image?quality: ??Excell ent.?? (units unknown) (unknown) (unknown) (no date) (unknown) (unknown) Injections: (units unknown) (unknown) (unknown) (no date) (unknown) (unknown) Instructions P O PER PKG DIR radiculopathy #21 ea 10/16/22 [Rx Confirmed (units unknown) (unknown) (unknown) (no date) (unknown) (unknown) Intake Clinical Staf f (units unknown) (unknown) (unknown) (no date) (unknown) (unknown) Intake Note: (units unknown) (unknown) (unknown) (no date) (unknown) (unknown) Intake perform ed by: Gisselle Gastelum (units unknown) (unknown) (unknown) (no date) (unknown) (unknown) Intake (units unknown) (unknown) (unknown) (no date) (unknown) (unknown) Intervention: Date: Outcome: (units unknown) (unknown) (unknown) (no date) (unknown) (unknown) Is patient in pain?: Yes Pain scale (1-10): 6 (units unknown) (unknown) (unknown) (no date) (unknown) (unknown) JUSTIFICATION OF MEDICAL NECESSITY (units unknown) (unknown) (unknown) (no date) (unknown) (unknown) L1-L2: (units unknown) (unknown) (unknown) (no date) (unknown) (unknown) L2 Hip Flexion 5/5 5/5? (units unknown) (unknown) (unknown) (no date) (unknown) (unknown) L2-L3: (units unknown) (unknown) (unknown) (no date) (unknown) (unknown) L3 Knee Extens ion 5/5 5/5 (units unknown) (unknown) (unknown) (no date) (unknown) (unknown) L3-L4: (units unknown) (unknown) (unknown) (no date) (unknown) (unknown) L4 Ankle Dorsi flexion 5/5 5/5 (units unknown) (unknown) (unknown) (no date) (unknown) (unknown) L4 [place] 1+ 1 (uni ts unknown) (unknown) (unknown) (no date) (unknown) (unknown) L4-L5: (units unknown) (unknown) (unknown) (no date) (unknown) (unknown) L5 Long Toe Ex tension 5/5 5/5 (units unknown) (unknown) (unknown) (no date) (unknown) (unknown) L5-S1.??Multil evel?dis c?height?loss?with?end plate?sclerosis?and?sp urring,?severe (units unknown) (unknown) (unknown) (no date) (unknown) (unknown) L5-S1: (units unknown) (unknown) (unknown) (no date) (unknown) (unknown) Loc: PAIN (units unknown) (unknown) (unknown) (no date) (unknown) (unknown) Low back pain (units unknown) (unknown) (unknown) (no date) (unknown) (unknown) Lumbar radiculopathy (units unknown) (unknown) (unknown) (no date) (unknown) (unknown) Lyrica 150 mg (units unknown) (unknown) (unknown) (no date) (unknown) (unknown) M54.42 - Lumba go with sciatica, left side; G89.29 - Other chronic pain (units unknown) (unknown) (unknown) (no date) (unknown) (unknown) MSK: System re viewed and no additional complaints, except as documented. (units unknown) (unknown) (unknown) (no date) (unknown) (unknown) Medical Histor y (Updated 10/16/22 @ 16:44 by Robin Morel MD) (units unknown) (unknown) (unknown) (no date) (unknown) (unknown) Medications (units unknown) (unknown) (unknown) (no date) (unknown) (unknown) Medications: (units unknown) (unknown) (unknown) (no date) (unknown) (unknown) Medrol Dosepak was also ordered to help with short-term pain relief. (units unknown) (unknown) (unknown) (no date) (unknown) (unknown) Morphine Aller gy (Mild, Uncoded 10/16/22 13:06) (units unknown) (unknown) (unknown) (no date) (unknown) (unknown) Motor (units unknown) (unknown) (unknown) (no date) (unknown) (unknown) Musculoskeletal: (un its unknown) (unknown) (unknown) (no date) (unknown) (unknown) Neuro: System reviewed and no additional complaints, except as documented. (units unknown) (unknown) (unknown) (no date) (unknown) (unknown) Neurologic: (units unknown) (unknown) (unknown) (no date) (unknown) (unknown) New (units unknown) (unknown) (unknown) (no date) (unknown) (unknown) Noncontrast?sa gittal?T 1?spin?echo?and?T2?fas t?echo,?sagittal?STIR, ?and?T2?fast?s (units unknown) (unknown) (unknown) (no date) (unknown) (unknown) Numbness/Tingl ing: b/l posterior thighs (units unknown) (unknown) (unknown) (no date) (unknown) (unknown) Objective Data (unit s unknown) (unknown) (unknown) (no date) (unknown) (unknown) Objective Data: (uni ts unknown) (unknown) (unknown) (no date) (unknown) (unknown) Onset/Context of haritha n: (units unknown) (unknown) (unknown) (no date) (unknown) (unknown) Onset: insidious (un its unknown) (unknown) (unknown) (no date) (unknown) (unknown) Orders (units unknown) (unknown) (unknown) (no date) (unknown) (unknown) Orders: (units unknown) (unknown) (unknown) (no date) (unknown) (unknown) Other: denies (units unknown) (unknown) (unknown) (no date) (unknown) (unknown) Oxygen Deliver y Method room air (units unknown) (unknown) (unknown) (no date) (unknown) (unknown) PAIN interlaminar/caudal inj Today M54.16 - Radiculopathy, lumbar region (units unknown) (unknown) (unknown) (no date) (unknown) (unknown) PATIENT IS HER E FOR LOW BACK PAIN (units unknown) (unknown) (unknown) (no date) (unknown) (unknown) PFSH (units unknown) (unknown) (unknown) (no date) (unknown) (unknown) PROCEDURE:??MR ?LUMBAR? SPINE?WITHOUT?CONTRAST (units unknown) (unknown) (unknown) (no date) (unknown) (unknown) PROCEDURE:??XR ?LUMBAR? SPINE?WITH?FLEXION?EXT ENSION?5?VIEWS (units unknown) (unknown) (unknown) (no date) (unknown) (unknown) PT: [place] [facility] al[facility] 6 visits in the last 6 months (units unknown) (unknown) (unknown) (no date) (unknown) (unknown) Pain Scale (units unknown) (unknown) (unknown) (no date) (unknown) (unknown) Pain Visit (units unknown) (unknown) (unknown) (no date) (unknown) (unknown) Pain location/Radiation: low back pain radiating to b/l posterior thighs (units unknown) (unknown) (unknown) (no date) (unknown) (unknown) Pain ratin /10 today, 9/10 at worst (units unknown) (unknown) (unknown) (no date) (unknown) (unknown) Paraspinous?So ft?Tissu es: (units unknown) (unknown) (unknown) (no date) (unknown) (unknown) Patient's pain has been present for >6 weeks and is an average of >6/10 on 0-10 (units unknown) (unknown) (unknown) (no date) (unknown) (unknown) Patient: Judi Aguilar MR#: [id number] (units unknown) (unknown) (unknown) (no date) (unknown) (unknown) [place] t[place] (Verified 10/16/22 13:06) (units unknown) (unknown) (unknown) (no date) (unknown) (unknown) Pertinent medi cations include: (units unknown) (unknown) (unknown) (no date) (unknown) (unknown) Plan (units unknown) (unknown) (unknown) (no date) (unknown) (unknown) Plan/Recommendations : (units unknown) (unknown) (unknown) (no date) (unknown) (unknown) Position Sitting (un its unknown) (unknown) (unknown) (no date) (unknown) (unknown) Previous pain treatments included: (units unknown) (unknown) (unknown) (no date) (unknown) (unknown) Psych: Appropr iate affect, answers questions appropriately (units unknown) (unknown) (unknown) (no date) (unknown) (unknown) Pulse 86 (units unknown) (unknown) (unknown) (no date) (unknown) (unknown) Pulse Oximetry (%) 9 6 (units unknown) (unknown) (unknown) (no date) (unknown) (unknown) Pulse Source Monitor (units unknown) (unknown) (unknown) (no date) (unknown) (unknown) Qualifiers: (units unknown) (unknown) (unknown) (no date) (unknown) (unknown) Quality and ti alirio of pain: Back - sharp or dull, intermittent; Legs - hurt and (units unknown) (unknown) (unknown) (no date) (unknown) (unknown) REFERRAL FROM DR. JEAN LICONA (units unknown) (unknown) (unknown) (no date) (unknown) (unknown) LUISA?on?07/24?at ?14:50?Approved?by: ?Leonel?Luisa?Clayton?on ?07/24/2022?at? (units unknown) (unknown) (unknown) (no date) (unknown) (unknown) ROS Narrative (units unknown) (unknown) (unknown) (no date) (unknown) (unknown) ROS Narrative: (unit s unknown) (unknown) (unknown) (no date) (unknown) (unknown) ROS (units unknown) (unknown) (unknown) (no date) (unknown) (unknown) Rash (units unknown) (unknown) (unknown) (no date) (unknown) (unknown) Reason For Visit (un its unknown) (unknown) (unknown) (no date) (unknown) (unknown) Red flag symptoms: ( units unknown) (unknown) (unknown) (no date) (unknown) (unknown) Reflex Right Left (u nits unknown) (unknown) (unknown) (no date) (unknown) (unknown) Reflexes: (units unknown) (unknown) (unknown) (no date) (unknown) (unknown) Relieving fact ors include: heat (units unknown) (unknown) (unknown) (no date) (unknown) (unknown) Respiratory: Non-labored breathing pattern on RA. No respiratory distress (units unknown) (unknown) (unknown) (no date) (unknown) (unknown) Reviewed?by:?J eff?Chof fel?RRA?Interpreted:?J zon?Luisa??on?07/24?at?14:49 (units unknown) (unknown) (unknown) (no date) (unknown) (unknown) Reviewed?by:?Johnathon lutz?Kyle,?M.DUche?on?09/20/2022 ?at?14:57???Transcribe d?by:?CANNON?on (units unknown) (unknown) (unknown) (no date) (unknown) (unknown) S1 Achilles 1+ 1 (un its unknown) (unknown) (unknown) (no date) (unknown) (unknown) S1 Ankle Plantarflexion 5/5 5/5 (units unknown) (unknown) (unknown) (no date) (unknown) (unknown) S1?where?there ?is?asso ciated?intraforaminal? nerve?root?compression .?Recommend?co (units unknown) (unknown) (unknown) (no date) (unknown) (unknown) Saddle anesthe kelby: denies (units unknown) (unknown) (unknown) (no date) (unknown) (unknown) Segment Action Right Left (units unknown) (unknown) (unknown) (no date) (unknown) (unknown) Segment Reflex Right Left (units unknown) (unknown) (unknown) (no date) (unknown) (unknown) Sensory -? Int act to light touch of bilateral lower extremities. Allodynia (units unknown) (unknown) (unknown) (no date) (unknown) (unknown) Signed By: <Electronically signed by Robin Morel MD> (units unknown) (unknown) (unknown) (no date) (unknown) (unknown) Signed (units unknown) (unknown) (unknown) (no date) (unknown) (unknown) Skin: No appre ciable rashes or skin breakdown (units unknown) (unknown) (unknown) (no date) (unknown) (unknown) Smoking Status : Never smoker (units unknown) (unknown) (unknown) (no date) (unknown) (unknown) Soft?tissues: (units unknown) (unknown) (unknown) (no date) (unknown) (unknown) Spinal?Cord: (units unknown) (unknown) (unknown) (no date) (unknown) (unknown) Standing: incr eased LBP (units unknown) (unknown) (unknown) (no date) (unknown) (unknown) Status: Acute (units unknown) (unknown) (unknown) (no date) (unknown) (unknown) Surgery: denies (uni ts unknown) (unknown) (unknown) (no date) (unknown) (unknown) T12-L1: (units unknown) (unknown) (unknown) (no date) (unknown) (unknown) T2?fast?spin?e cho?may? be?performed.?? (units unknown) (unknown) (unknown) (no date) (unknown) (unknown) TECHNIQUE: (units unknown) (unknown) (unknown) (no date) (unknown) (unknown) TECHNIQUE:?? (units unknown) (unknown) (unknown) (no date) (unknown) (unknown) Temp 98.4 F (units unknown) (unknown) (unknown) (no date) (unknown) (unknown) Temp Source Te mporal Artery Scan (units unknown) (unknown) (unknown) (no date) (unknown) (unknown) [facility] (units unknown) (unknown) (unknown) (no date) (unknown) (unknown) This note may have been all or partially generated using voice recognition (units unknown) (unknown) (unknown) (no date) (unknown) (unknown) Tobacco + Subs tance Use (units unknown) (unknown) (unknown) (no date) (unknown) (unknown) Tobacco Status (unit s unknown) (unknown) (unknown) (no date) (unknown) (unknown) Today I have r eviewed available medical information in the patient's medical (units unknown) (unknown) (unknown) (no date) (unknown) (unknown) Tylenol (units unknown) (unknown) (unknown) (no date) (unknown) (unknown) Upper Motor Ne uron Signs: (units unknown) (unknown) (unknown) (no date) (unknown) (unknown) 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 (units unknown) (unknown) (unknown) (no date) (unknown) (unknown) We reviewed et iology, predisposing factor(s), natural course, imaging results as (units unknown) (unknown) (unknown) (no date) (unknown) (unknown) Weakness: denies (un its unknown) (unknown) (unknown) (no date) (unknown) (unknown) Weight 261 lb (units unknown) (unknown) (unknown) (no date) (unknown) (unknown) X-ray has been performed which is consistent with lumbar spondylosis, most (units unknown) (unknown) (unknown) (no date) (unknown) (unknown) [History Confi rmed 10/16/22] (units unknown) (unknown) (unknown) (no date) (unknown) (unknown) acetaminophen 500 mg tablet (Tylenol Extra Strength) 500 mg PO Q6H PRN 10/16/22 (units unknown) (unknown) (unknown) (no date) (unknown) (unknown) albuterol sulf ate 90 mcg/actuation aerosol inhaler 2 puff inhalation Q6H PRN (units unknown) (unknown) (unknown) (no date) (unknown) (unknown) amitriptyline 10 mg tablet 10 mg PO BEDTIME 10/16/22 [History Confirmed (units unknown) (unknown) (unknown) (no date) (unknown) (unknown) at?the?L5-S1?level. (units unknown) (unknown) (unknown) (no date) (unknown) (unknown) back pain with radiation down bilateral lower extremities. Her pain is likely (units unknown) (unknown) (unknown) (no date) (unknown) (unknown) benefits of va rious treatment options were discussed with the patient in great (units unknown) (unknown) (unknown) (no date) (unknown) (unknown) bowel/bladder dysfunction, and perineal numbness were discussed. The patient was (units unknown) (unknown) (unknown) (no date) (unknown) (unknown) cyclobenzaprin e 10 mg tablet 10 mg PO BEDTIME 10/16/22 [History Confirmed (units unknown) (unknown) (unknown) (no date) (unknown) (unknown) d?facet?and?li gamentum ?flavum?hypertrophy.?? Mild?epidural?lipomato sis.??Moderate (units unknown) (unknown) (unknown) (no date) (unknown) (unknown) detail. (units unknown) (unknown) (unknown) (no date) (unknown) (unknown) diclofenac sod ium 75 mg tablet,delayed release 75 mg PO BID PRN 10/16/22 (units unknown) (unknown) (unknown) (no date) (unknown) (unknown) enosis.??Mild? bilatera l?foraminal?stenosis. (units unknown) (unknown) (unknown) (no date) (unknown) (unknown) erate?facet?an d?ligame ntum?flavum?hypertroph y.??Severe?canal?steno sis.??Moderate (units unknown) (unknown) (unknown) (no date) (unknown) (unknown) es?normal?sign al?and?s ize.?? (units unknown) (unknown) (unknown) (no date) (unknown) (unknown) et?and?ligamen jolly?flav um?hypertrophy.??Mild? canal?stenosis.??Sever e?bilateral?fo (units unknown) (unknown) (unknown) (no date) (unknown) (unknown) et?and?ligamen jolly?flav um?hypertrophy.??Mild? epidural?lipomatosis.? ?Mild?canal?st (units unknown) (unknown) (unknown) (no date) (unknown) (unknown) et?and?ligamen jolly?flav um?hypertrophy.??Moder ate?canal?stenosis.??M ild?bilateral? (units unknown) (unknown) (unknown) (no date) (unknown) (unknown) facet arthropa thy who presents for further evaluation of low back and leg pain. (units unknown) (unknown) (unknown) (no date) (unknown) (unknown) foraminal?stenosis. (units unknown) (unknown) (unknown) (no date) (unknown) (unknown) have low back pain after this injection, consider medial branch blocks and RFA. (units unknown) (unknown) (unknown) (no date) (unknown) (unknown) have occurred. If there are any questions, please contact the Medical Records (units unknown) (unknown) (unknown) (no date) (unknown) (unknown) hypertrophy?an d?epidur al?lipomatosis. (units unknown) (unknown) (unknown) (no date) (unknown) (unknown) in PT. (units unknown) (unknown) (unknown) (no date) (unknown) (unknown) instructed to report to the Emergency department, if these symptoms occur. (units unknown) (unknown) (unknown) (no date) (unknown) (unknown) instructed to stop if any side effects. (units unknown) (unknown) (unknown) (no date) (unknown) (unknown) intravenous dr ug use, sustained glucocorticoid use, osteoporosis, or a focal (units unknown) (unknown) (unknown) (no date) (unknown) (unknown) ion?fractures. ??No?jose picious?bony?lesions.? ? (units unknown) (unknown) (unknown) (no date) (unknown) (unknown) likely benefit from an L5-S1 epidural steroid injection. If she continues to (units unknown) (unknown) (unknown) (no date) (unknown) (unknown) loratadine 10 mg tablet (Allergy Relief (loratadine)) 10 mg PO DAILY 10/16/22 (units unknown) (unknown) (unknown) (no date) (unknown) (unknown) may occur. Occ asional wrong-word or 'sound-alike' substitutions may have (units unknown) (unknown) (unknown) (no date) (unknown) (unknown) methylpredniso lone (Medrol (Domingo)) PO PER PKG DIR 21 ea 0RF radiculopathy (units unknown) (unknown) (unknown) (no date) (unknown) (unknown) methylpredniso lone 4 mg tablets in a dose pack (Medrol (Domingo)) See Rx (units unknown) (unknown) (unknown) (no date) (unknown) (unknown) metoprolol suc cinate 25 mg tablet,extended release 24 hr 25 mg PO DAILY 10/16/22 (units unknown) (unknown) (unknown) (no date) (unknown) (unknown) multifactorial with major components of radicular and axial pain. She would (units unknown) (unknown) (unknown) (no date) (unknown) (unknown) nd?L5?on?S1. (units unknown) (unknown) (unknown) (no date) (unknown) (unknown) negative, Hype ralgesia - negative (units unknown) (unknown) (unknown) (no date) (unknown) (unknown) neurological d eficit with progressive or disabling symptoms. (units unknown) (unknown) (unknown) (no date) (unknown) (unknown) ns.??Cholecyst ectomy?c lips. (units unknown) (unknown) (unknown) (no date) (unknown) (unknown) occurred due t o the inherent limitations of voice recognition software. Please (units unknown) (unknown) (unknown) (no date) (unknown) (unknown) of Spinal Cord Injur y) (units unknown) (unknown) (unknown) (no date) (unknown) (unknown) omeprazole 20 mg capsule,delayed release 20 mg PO DAILY 10/16/22 [History (units unknown) (unknown) (unknown) (no date) (unknown) (unknown) or immunosuppr essive therapy, previous or current cancer diagnosis, history of (units unknown) (unknown) (unknown) (no date) (unknown) (unknown) pin?echo?throu gh?the?l umbar?spine.??In?cases ?with?scoliosis,?addit ional?coronal? (units unknown) (unknown) (unknown) (no date) (unknown) (unknown) pregabalin 150 mg capsule 150 mg PO BID 10/16/22 [History Confirmed 10/16/22] (units unknown) (unknown) (unknown) (no date) (unknown) (unknown) racic?spine. (units unknown) (unknown) (unknown) (no date) (unknown) (unknown) radiculopathy, lumbar spinal stenosis with neurogenic claudication and lumbar (units unknown) (unknown) (unknown) (no date) (unknown) (unknown) raminal?stenos is?with? bilateral?L5?nerve?ghanshyam t?compression. (units unknown) (unknown) (unknown) (no date) (unknown) (unknown) read the note carefully and recognize, using context, where these substitutions (units unknown) (unknown) (unknown) (no date) (unknown) (unknown) record, includ ing relevant provider notes, laboratory work, and imaging. (units unknown) (unknown) (unknown) (no date) (unknown) (unknown) rmal?lumbar?lo rdosis.? ?3?mm?of?retrolisthesi s?of?L1?on?L2,?L2?on?L 3,?L3?on?L4,?a (units unknown) (unknown) (unknown) (no date) (unknown) (unknown) rrelation?with ?clinica l?symptoms?to?ascertai n?relevance?of?this?fi nding.? (units unknown) (unknown) (unknown) (no date) (unknown) (unknown) s.??Moderate?c anal?james nosis?at?L2-L3?and?L3- L4. (units unknown) (unknown) (unknown) (no date) (unknown) (unknown) scale and/or p ain interferes with ADLs. (units unknown) (unknown) (unknown) (no date) (unknown) (unknown) severe at the L5-S1 level. MRI concerning for multilevel central canal (units unknown) (unknown) (unknown) (no date) (unknown) (unknown) software. Alth ough every effort is made to edit content, managed security sales consultant errors (units unknown) (unknown) (unknown) (no date) (unknown) (unknown) stability intact. (u nits unknown) (unknown) (unknown) (no date) (unknown) (unknown) stenosis at L5 -S1. She is seen by Dr. Licona with Orthopedic spine surgery and (units unknown) (unknown) (unknown) (no date) (unknown) (unknown) stenosis, wors e at L4-5 and L5-S1. There is also bilateral neural foraminal (units unknown) (unknown) (unknown) (no date) (unknown) (unknown) therapeutic in jections and surgery. The risks, consequences, alternatives and (units unknown) (unknown) (unknown) (no date) (unknown) (unknown) ures.??Mild?re active?s ignal?throughout?the?e ndplates?of?the?lumbar ?and?lower?tho (units unknown) (unknown) (unknown) (no date) (unknown) (unknown) wait for surge ry until after consultation with pain management. (units unknown) (unknown) (unknown) (no date) (unknown) (unknown) walking intact . Tandem gait normal without evidence of ataxia. Lower quarter (units unknown) (unknown) (unknown) (no date) (unknown) (unknown) was felt to be a surgical candidate for laminectomy at L4-5. Patient elected to (units unknown) (unknown) (unknown) (no date) (unknown) (unknown) weak (units unknown) (unknown) (unknown) (no date) (unknown) (unknown) well as treatm ent options including medications, physical therapy/exercise, (units unknown) (unknown) (unknown) (no date) (unknown) (unknown) with sciatica Sciatica laterality: sciatica of left side Qualified Code(s): (units unknown) (unknown) Result panel 9 (unknown) (no date) (unknown) (unknown) (no value) (units unknown) (unknown) (unknown) (no date) (unknown) (unknown) [id number] (units unknown) (unknown) (unknown) (no date) (unknown) (unknown) 10/24/22 (units unknown) (unknown) (unknown) (no date) (unknown) (unknown) 07/24/2022, 14: 34. [facility], MR, MR LUMBAR SPINE WITHOUT CONTRAST, (units unknown) (unknown) (unknown) (no date) (unknown) (unknown) [address] [place] [address] (un its unknown) (unknown) (unknown) (no date) (unknown) (unknown) 09/20/2022, 14:27. (u nits unknown) (unknown) (unknown) (no date) (unknown) (unknown) 5 VIEWS, (units unknown) (unknown) (unknown) (no date) (unknown) (unknown) Accession Numb er: [id number] (units unknown) (unknown) (unknown) (no date) (unknown) (unknown) Age/Sex: 67 / F Date of Service: (units unknown) (unknown) (unknown) (no date) (unknown) (unknown) [place] [address] (units unknown) (unknown) (unknown) (no date) (unknown) (unknown) Approved by: Luther Holder M.D. on 10/24/2022 at 11:22 (units unknown) (unknown) (unknown) (no date) (unknown) (unknown) COMPARISON: [facility], CR, XR LUMBAR SPINE WITH FLEXION EXTENSION (units unknown) (unknown) (unknown) (no date) (unknown) (unknown) : 7 Acct:[id number] (units unknown) (unknown) (unknown) (no date) (unknown) (unknown) Dictated by: Luther Holder M.D. on 10/24/2022 at 11:22 (units unknown) (unknown) (unknown) (no date) (unknown) (unknown) FINDINGS: (units unknown) (unknown) (unknown) (no date) (unknown) (unknown) Fluoroscopic s pot filming was performed to verify placement of a spinal needle (units unknown) (unknown) (unknown) (no date) (unknown) (unknown) IMPRESSION: No significant intraprocedural abnormality. (units unknown) (unknown) (unknown) (no date) (unknown) (unknown) INDICATIONS: L UMBAR RADICULOPATHY (units unknown) (unknown) (unknown) (no date) (unknown) (unknown) [facility] (uni ts unknown) (unknown) (unknown) (no date) (unknown) (unknown) L5-S1 level, a s labeled on the films. Appropriate location of the needle tip (units unknown) (unknown) (unknown) (no date) (unknown) (unknown) Loc: RAD (units unknown) (unknown) (unknown) (no date) (unknown) (unknown) Ordering Provi jonah: Robin Morel MD (units unknown) (unknown) (unknown) (no date) (unknown) (unknown) PROCEDURE: HARITHA N L INTERLAMINAR/CAUDAL INJ (units unknown) (unknown) (unknown) (no date) (unknown) (unknown) Patient: Judi Aguilar MR#: [id number] (units unknown) (unknown) (unknown) (no date) (unknown) (unknown) Procedure: HARITHA N interlaminar/caudal inj (units unknown) (unknown) (unknown) (no date) (unknown) (unknown) Signed (units unknown) (unknown) (unknown) (no date) (unknown) (unknown) XRay Report (units unknown) (unknown) (unknown) (no date) (unknown) (unknown) at the (units unknown) (unknown) (unknown) (no date) (unknown) (unknown) confirmed by i njection of iodinated contrast. (units unknown) (unknown) (unknown) (no date) (unknown) (unknown) was (units unknown) (unknown) Result panel 10 (unknown) (no date) (unknown) (unknown) (no value) (units unknown) (unknown) (unknown) (no date) (unknown) (unknown) [id number] (units unknown) (unknown) (unknown) (no date) (unknown) (unknown) ASA: [] (units unknown) (unknown) (unknown) (no date) (unknown) (unknown) Age/Sex: 67 / F (uni ts unknown) (unknown) (unknown) (no date) (unknown) (unknown) Anesthesia: [l ocal vs sedation] (units unknown) (unknown) (unknown) (no date) (unknown) (unknown) Ax3 (units unknown) (unknown) (unknown) (no date) (unknown) (unknown) Band-Aids appl ied to injection sites. (units unknown) (unknown) (unknown) (no date) (unknown) (unknown) Complications: None (units unknown) (unknown) (unknown) (no date) (unknown) (unknown) Consent: Follo wing review of allergies and potential side effects/complications, (units unknown) (unknown) (unknown) (no date) (unknown) (unknown) Contrast: Isovue 300 M (units unknown) (unknown) (unknown) (no date) (unknown) (unknown) : 7 Acct:[id number] (units unknown) (unknown) (unknown) (no date) (unknown) (unknown) Date of Servic e: 10/24/22 (units unknown) (unknown) (unknown) (no date) (unknown) (unknown) Date of proced ure: 10/24/22 (units unknown) (unknown) (unknown) (no date) (unknown) (unknown) Date/Time/Diagnoses (units unknown) (unknown) (unknown) (no date) (unknown) (unknown) EBL: less than 1 ml (units unknown) (unknown) (unknown) (no date) (unknown) (unknown) Focused Examination: (units unknown) (unknown) (unknown) (no date) (unknown) (unknown) Indications: [ Patient] is presenting for treatment of lumbar radiculopathy with (units unknown) (unknown) (unknown) (no date) (unknown) (unknown) Injectate: Dexamethasone 15mg with 0.25% Bupivacaine 1.5 mL (units unknown) (unknown) (unknown) (no date) (unknown) (unknown) [place] [address] (units unknown) (unknown) (unknown) (no date) (unknown) (unknown) Monitoring: NI BP, Pulse oximetry, 3 lead EKG (units unknown) (unknown) (unknown) (no date) (unknown) (unknown) Mood and affec t are normal (units unknown) (unknown) (unknown) (no date) (unknown) (unknown) Needle used: 1 8 G 3.5? Tuohy (units unknown) (unknown) (unknown) (no date) (unknown) (unknown) Patient: Judi Aguilar MR#: [id number] (units unknown) (unknown) (unknown) (no date) (unknown) (unknown) Physician: Ismael Morel (units unknown) (unknown) (unknown) (no date) (unknown) (unknown) Position: Prone (uni ts unknown) (unknown) (unknown) (no date) (unknown) (unknown) Post Procedure : Patient was taken to the recovery and monitored. The patient was (units unknown) (unknown) (unknown) (no date) (unknown) (unknown) Postoperative diagnosis: Same (units unknown) (unknown) (unknown) (no date) (unknown) (unknown) Preoperative diagnosis: Lumbar radiculopathy (units unknown) (unknown) (unknown) (no date) (unknown) (unknown) Procedure Note (unit s unknown) (unknown) (unknown) (no date) (unknown) (unknown) Procedure Notes (uni ts unknown) (unknown) (unknown) (no date) (unknown) (unknown) Procedure in d etail + Post-procedure care: (units unknown) (unknown) (unknown) (no date) (unknown) (unknown) Provider: Robin Morel MD (units unknown) (unknown) (unknown) (no date) (unknown) (unknown) Signed By: (units unknown) (unknown) (unknown) (no date) (unknown) (unknown) Technique: The skin was prepped with chloraprep and then draped in a sterile (units unknown) (unknown) (unknown) (no date) (unknown) (unknown) Time of proced ure: 11:00 (units unknown) (unknown) (unknown) (no date) (unknown) (unknown) Vital Signs: VSS (un its unknown) (unknown) (unknown) (no date) (unknown) (unknown) [] Interl aminar Epidural Steroid Injection (units unknown) (unknown) (unknown) (no date) (unknown) (unknown) and the spread was consistent with the epidural space. There was no evidence for (units unknown) (unknown) (unknown) (no date) (unknown) (unknown) control, the T uohy needle was guided into the [level] epidural space. The space (units unknown) (unknown) (unknown) (no date) (unknown) (unknown) fashion. Time out was performed as per protocol. Oxygen applied via NC. Skin and (units unknown) (unknown) (unknown) (no date) (unknown) (unknown) including medi cations and physical therapy were reviewed with the patient. All (units unknown) (unknown) (unknown) (no date) (unknown) (unknown) including, but not necessarily limited to, infection, allergic reaction, local (units unknown) (unknown) (unknown) (no date) (unknown) (unknown) instructions w ere provided. Patient was asked to call in the event of worsening (units unknown) (unknown) (unknown) (no date) (unknown) (unknown) intravascular or intrathecal uptake. After negative aspiration, the above (units unknown) (unknown) (unknown) (no date) (unknown) (unknown) low back and leg haritha n. (units unknown) (unknown) (unknown) (no date) (unknown) (unknown) mentioned inje ctate was then slowly administered and the needle withdrawn. The (units unknown) (unknown) (unknown) (no date) (unknown) (unknown) nurse and plac ed in the patient's chart.? Additionally, other treatment options (units unknown) (unknown) (unknown) (no date) (unknown) (unknown) of lidocaine 1 %. Under AP, lateral and contralateral oblique fluoroscopic (units unknown) (unknown) (unknown) (no date) (unknown) (unknown) pain, fever, w eakness, numbness or bladder or bowel incontinence. (units unknown) (unknown) (unknown) (no date) (unknown) (unknown) patient expres sed no unusual discomfort or paresthesias during the injection. (units unknown) (unknown) (unknown) (no date) (unknown) (unknown) physician. Pat ient was stable upon discharge. Detailed post procedure (units unknown) (unknown) (unknown) (no date) (unknown) (unknown) possible , the patient indicated that they understood and agreed to (units unknown) (unknown) (unknown) (no date) (unknown) (unknown) proceed.? An i nformed consent document was signed by the patient, witnessed by a (units unknown) (unknown) (unknown) (no date) (unknown) (unknown) provided a Haritha n Log to continue to record the patient's response to the target (units unknown) (unknown) (unknown) (no date) (unknown) (unknown) questions were answered. Site was then marked. (units unknown) (unknown) (unknown) (no date) (unknown) (unknown) specific proce dure prior to the patient's follow-up visit with the referring (units unknown) (unknown) (unknown) (no date) (unknown) (unknown) subcutaneous structures of the needle entry site was then infiltrated with 3 mL (units unknown) (unknown) (unknown) (no date) (unknown) (unknown) tissue breakdo wn, stroke, temporary or permanent nerve injury, paralysis, and (units unknown) (unknown) (unknown) (no date) (unknown) (unknown) was accessed w ith loss of resistance technique. Isovue 300M was then injected (units unknown) (unknown) Result panel 11 (unknown) (no date) (unknown) (unknown) (no value) (units unknown) (unknown) (unknown) (no date) (unknown) (unknown) [id number] (units unknown) (unknown) (unknown) (no date) (unknown) (unknown) 10/24/22 1057 (units unknown) (unknown) (unknown) (no date) (unknown) (unknown) ASA: 2 (units unknown) (unknown) (unknown) (no date) (unknown) (unknown) Age/Sex: 67 / F (uni ts unknown) (unknown) (unknown) (no date) (unknown) (unknown) Anesthesia: lo rashaad vs sedation (units unknown) (unknown) (unknown) (no date) (unknown) (unknown) Ax3 (units unknown) (unknown) (unknown) (no date) (unknown) (unknown) Complications: None (units unknown) (unknown) (unknown) (no date) (unknown) (unknown) Consent: Follo wing review of allergies and potential side effects/complications, (units unknown) (unknown) (unknown) (no date) (unknown) (unknown) Contrast: Isovue 300 M (units unknown) (unknown) (unknown) (no date) (unknown) (unknown) : 7 Acct:[id number] (units unknown) (unknown) (unknown) (no date) (unknown) (unknown) Date of Servic e: 10/24/22 (units unknown) (unknown) (unknown) (no date) (unknown) (unknown) Date of proced ure: 10/24/22 (units unknown) (unknown) (unknown) (no date) (unknown) (unknown) Date/Time/Diagnoses (units unknown) (unknown) (unknown) (no date) (unknown) (unknown) EBL: less than 1 ml (units unknown) (unknown) (unknown) (no date) (unknown) (unknown) Focused Examination: (units unknown) (unknown) (unknown) (no date) (unknown) (unknown) Indications: Noelle regalado is presenting for treatment of lumbar radiculopathy with low (units unknown) (unknown) (unknown) (no date) (unknown) (unknown) Injectate: Dep o-Medrol 80 mg with 0.25% Bupivacaine 2 mL (units unknown) (unknown) (unknown) (no date) (unknown) (unknown) [place] [address] (units unknown) (unknown) (unknown) (no date) (unknown) (unknown) L5-S1 [place] inar Epidural Steroid Injection (units unknown) (unknown) (unknown) (no date) (unknown) (unknown) Monitoring: NI BP, Pulse oximetry, 3 lead EKG (units unknown) (unknown) (unknown) (no date) (unknown) (unknown) Mood and affec t are normal (units unknown) (unknown) (unknown) (no date) (unknown) (unknown) Needle used: 1 8 G 3.5? Tuohy (units unknown) (unknown) (unknown) (no date) (unknown) (unknown) Patient: Judi Aguilar MR#: [id number] (units unknown) (unknown) (unknown) (no date) (unknown) (unknown) Physician: Ismael Morel (units unknown) (unknown) (unknown) (no date) (unknown) (unknown) Position: Prone (uni ts unknown) (unknown) (unknown) (no date) (unknown) (unknown) Post Procedure : Patient was taken to the recovery and monitored. The patient was (units unknown) (unknown) (unknown) (no date) (unknown) (unknown) Postoperative diagnosis: Same (units unknown) (unknown) (unknown) (no date) (unknown) (unknown) Preoperative diagnosis: Lumbar radiculopathy (units unknown) (unknown) (unknown) (no date) (unknown) (unknown) Procedure Note (unit s unknown) (unknown) (unknown) (no date) (unknown) (unknown) Procedure Notes (uni ts unknown) (unknown) (unknown) (no date) (unknown) (unknown) Procedure in d etail + Post-procedure care: (units unknown) (unknown) (unknown) (no date) (unknown) (unknown) Provider: Robin Morel MD (units unknown) (unknown) (unknown) (no date) (unknown) (unknown) Signed By:<Electronically signed by Robin Morel MD> (units unknown) (unknown) (unknown) (no date) (unknown) (unknown) Technique: The skin was prepped with chloraprep and then draped in a sterile (units unknown) (unknown) (unknown) (no date) (unknown) (unknown) Time of proced ure: 11:00 (units unknown) (unknown) (unknown) (no date) (unknown) (unknown) Total Fluorosc opy time (seconds): 17 (units unknown) (unknown) (unknown) (no date) (unknown) (unknown) Total sedation minutes: 0 (units unknown) (unknown) (unknown) (no date) (unknown) (unknown) Vital Signs: VSS (un its unknown) (unknown) (unknown) (no date) (unknown) (unknown) and the spread was consistent with the epidural space. There was no evidence for (units unknown) (unknown) (unknown) (no date) (unknown) (unknown) aspiration, th e above-mentioned injectate was then slowly administered and the (units unknown) (unknown) (unknown) (no date) (unknown) (unknown) back and leg pain. ( units unknown) (unknown) (unknown) (no date) (unknown) (unknown) control, the T uohy needle was guided into the L5-S1 epidural space. The space (units unknown) (unknown) (unknown) (no date) (unknown) (unknown) during the inj ection. Band-Aids applied to injection sites. (units unknown) (unknown) (unknown) (no date) (unknown) (unknown) fashion. Time out was performed as per protocol. Oxygen applied via NC. Skin and (units unknown) (unknown) (unknown) (no date) (unknown) (unknown) including medi cations and physical therapy were reviewed with the patient. All (units unknown) (unknown) (unknown) (no date) (unknown) (unknown) including, but not necessarily limited to, infection, allergic reaction, local (units unknown) (unknown) (unknown) (no date) (unknown) (unknown) instructions w ere provided. Patient was asked to call in the event of worsening (units unknown) (unknown) (unknown) (no date) (unknown) (unknown) intravascular or intrathecal uptake. Test test was performed with 2 cc 1% (units unknown) (unknown) (unknown) (no date) (unknown) (unknown) lidocaine. Leg strength was maintained after test dose. After negative (units unknown) (unknown) (unknown) (no date) (unknown) (unknown) needle withdra wn. The patient expressed no unusual discomfort or paresthesias (units unknown) (unknown) (unknown) (no date) (unknown) (unknown) nurse and plac ed in the patient's chart.? Additionally, other treatment options (units unknown) (unknown) (unknown) (no date) (unknown) (unknown) of lidocaine 1 %. Under AP, lateral and contralateral oblique fluoroscopic (units unknown) (unknown) (unknown) (no date) (unknown) (unknown) pain, fever, w eakness, numbness or bladder or bowel incontinence. (units unknown) (unknown) (unknown) (no date) (unknown) (unknown) physician. Pat ient was stable upon discharge. Detailed post procedure (units unknown) (unknown) (unknown) (no date) (unknown) (unknown) possible , the patient indicated that they understood and agreed to (units unknown) (unknown) (unknown) (no date) (unknown) (unknown) proceed.? An i nformed consent document was signed by the patient, witnessed by a (units unknown) (unknown) (unknown) (no date) (unknown) (unknown) provided a Haritha n Log to continue to record the patient's response to the target (units unknown) (unknown) (unknown) (no date) (unknown) (unknown) questions were answered. Site was then marked. (units unknown) (unknown) (unknown) (no date) (unknown) (unknown) specific proce dure prior to the patient's follow-up visit with the referring (units unknown) (unknown) (unknown) (no date) (unknown) (unknown) subcutaneous structures of the needle entry site was then infiltrated with 3 mL (units unknown) (unknown) (unknown) (no date) (unknown) (unknown) tissue breakdo wn, stroke, temporary or permanent nerve injury, paralysis, and (units unknown) (unknown) (unknown) (no date) (unknown) (unknown) was accessed w ith loss of resistance technique. Isovue 300M was then injected (units unknown) (unknown) Result panel 12 (unknown) (no date) (unknown) (unknown) (no value) (units unknown) (unknown) (unknown) (no date) (unknown) (unknown) (0=absent, 1=s light response, 2=brisk/normal, 3=very brisk, 4=clonus) (units unknown) (unknown) (unknown) (no date) (unknown) (unknown) (segments are from the International Standards for Neurological Classification (units unknown) (unknown) (unknown) (no date) (unknown) (unknown) - Activity: Co ntinue activity as tolerated. [] (units unknown) (unknown) (unknown) (no date) (unknown) (unknown) - Chiropractor , acupuncture[] (units unknown) (unknown) (unknown) (no date) (unknown) (unknown) - Continues cl inician directed home exercise program including exercises learned (units unknown) (unknown) (unknown) (no date) (unknown) (unknown) - Education: C auda equina and associated symptoms, including motor weakness, (units unknown) (unknown) (unknown) (no date) (unknown) (unknown) - FADIR: Negat eileen bilaterally (units unknown) (unknown) (unknown) (no date) (unknown) (unknown) - Follow-up: [] (uni ts unknown) (unknown) (unknown) (no date) (unknown) (unknown) - Hip ROM is: Within normal limits (units unknown) (unknown) (unknown) (no date) (unknown) (unknown) - I discussed risks, benefits and side effects. Additionally, patient was (units unknown) (unknown) (unknown) (no date) (unknown) (unknown) - Imaging: No new imaging indicated at this time. [] (units unknown) (unknown) (unknown) (no date) (unknown) (unknown) - Interventional/Surgica l procedures: None indicated at this time. [] (units unknown) (unknown) (unknown) (no date) (unknown) (unknown) - Lumbar facet loading: Positive bilaterally (units unknown) (unknown) (unknown) (no date) (unknown) (unknown) - Medications: No new prescription at this time. Patient will continue current (units unknown) (unknown) (unknown) (no date) (unknown) (unknown) - Medications: acetaminophen, NSAIDS, neuropathics, muscle relaxants [] (units unknown) (unknown) (unknown) (no date) (unknown) (unknown) - Physical The rapy: Completed 6 week course in the last 6 months OR Patient (units unknown) (unknown) (unknown) (no date) (unknown) (unknown) - Physical therapy/modalities/DME : Patient will likely benefit from physical (units unknown) (unknown) (unknown) (no date) (unknown) (unknown) - Prescription provided and uptitration instructions given if necessary. [] (units unknown) (unknown) (unknown) (no date) (unknown) (unknown) - Previous [] on [] provided []% relief of pain for the expected duration of the (units unknown) (unknown) (unknown) (no date) (unknown) (unknown) - Referrals: N one indicated at this time. [] (units unknown) (unknown) (unknown) (no date) (unknown) (unknown) - SIJ provocat ion testing: Negative bilaterally (units unknown) (unknown) (unknown) (no date) (unknown) (unknown) - Straight Leg Raise: Positive for leg pain on the left (units unknown) (unknown) (unknown) (no date) (unknown) (unknown) [id number] (units unknown) (unknown) (unknown) (no date) (unknown) (unknown) 10/17/22 (units unknown) (unknown) (unknown) (no date) (unknown) (unknown) 1.?Multilevel? degenera tive?disc?and?facet?di sease,?as?well?as?liga mentum?flavum? (units unknown) (unknown) (unknown) (no date) (unknown) (unknown) 1.Limited?rang e?of?mot ion?and?multilevel?lum bar?spine?spondylosis, ?most?notably? (units unknown) (unknown) (unknown) (no date) (unknown) (unknown) 15:37??? (units unknown) (unknown) (unknown) (no date) (unknown) (unknown) 2.?Multilevel? canal?st enoses,?worst?at?L4-L5 ?where?there?is?severe ?canal?stenosi (units unknown) (unknown) (unknown) (no date) (unknown) (unknown) ,?14:34. (uni ts unknown) (unknown) (unknown) (no date) (unknown) (unknown) 3.?Multilevel? foramina l?stenoses,?worst?at?L 5 (units unknown) (unknown) (unknown) (no date) (unknown) (unknown) 4.??Left?iliop soas?mus ronald?atrophy.?? (units unknown) (unknown) (unknown) (no date) (unknown) (unknown) ? Denies? (units unknown) (unknown) (unknown) (no date) (unknown) (unknown) ? Inspection - ? No gross appendicular or axial deformities (units unknown) (unknown) (unknown) (no date) (unknown) (unknown) ? Palpation -n o tenderness to palpation (units unknown) (unknown) (unknown) (no date) (unknown) (unknown) ? ROM -lumbar extension limited due to pain (units unknown) (unknown) (unknown) (no date) (unknown) (unknown) ? Special tests (uni ts unknown) (unknown) (unknown) (no date) (unknown) (unknown) ?09/20/2022?at?15:01 (units unknown) (unknown) (unknown) (no date) (unknown) (unknown) ??5?lumbar?typ e?verteb ral?bodies?are?present ?by?plain?film.??There ?is?loss?of?no (units unknown) (unknown) (unknown) (no date) (unknown) (unknown) ??5?nonrib-viviana ring?bre tebrae?are?present.??3 ?mm?retrolisthesis?L2- L3,?L3-L4?and? (units unknown) (unknown) (unknown) (no date) (unknown) (unknown) ??5?views?of?t he?lumba r?spine?acquired,?incl uding?flexion?and?exte nsion?views.? (units unknown) (unknown) (unknown) (no date) (unknown) (unknown) ? Acetaminophen -denies (units unknown) (unknown) (unknown) (no date) (unknown) (unknown) ? Antidepressants -current (units unknown) (unknown) (unknown) (no date) (unknown) (unknown) ? Antiepileptics -current (units unknown) (unknown) (unknown) (no date) (unknown) (unknown) ? Mu scle Relaxants -cyclobenzaprine (units unknown) (unknown) (unknown) (no date) (unknown) (unknown) ? NS AIDs -current (units unknown) (unknown) (unknown) (no date) (unknown) (unknown) ? Op ioids -denies (units unknown) (unknown) (unknown) (no date) (unknown) (unknown) ? St eroids -denies (units unknown) (unknown) (unknown) (no date) (unknown) (unknown) ? To picals -denies (units unknown) (unknown) (unknown) (no date) (unknown) (unknown) ???Transcribed?by:?J C (units unknown) (unknown) (unknown) (no date) (unknown) (unknown) ??Conus?medull cade?ter minates?at?the?lower?L 1?level.??Visualized?c ord?demonstrat (units unknown) (unknown) (unknown) (no date) (unknown) (unknown) ??Marrow?is?of ?normal? overall?signal.??No?ac [place]?vertebral?body?com pression?fract (units unknown) (unknown) (unknown) (no date) (unknown) (unknown) ??Moderate?dis c?desicc ation.??Mild?disc?heig ht?loss?and?diffuse?di sc?bulge.??Mil (units unknown) (unknown) (unknown) (no date) (unknown) (unknown) ??Moderate?dis c?desicc ation.??Mild?disc?heig ht?loss?and?diffuse?di sc?bulge.??Mod (units unknown) (unknown) (unknown) (no date) (unknown) (unknown) ??Moderate?dis c?height ?loss?and?desiccation. ??Mild?diffuse?disc?bu lge.??Mild?fac (units unknown) (unknown) (unknown) (no date) (unknown) (unknown) ??Moderate?dis c?height ?loss?and?desiccation. ??No?significant?canal ,?or?foraminal (units unknown) (unknown) (unknown) (no date) (unknown) (unknown) ??No?paraverte bral?mas ses.??There?is?asymmet david?left?ileo?psoas?at rophy. (units unknown) (unknown) (unknown) (no date) (unknown) (unknown) ??Overlying?israel wel?gas? pattern?is?normal.??No ?suspicious?soft?tissu e?calcificatio (units unknown) (unknown) (unknown) (no date) (unknown) (unknown) ??[facility],?CR,?XR?LUMBAR?SPIN E?WITH?FLEXION?EXTENSI ON?5?VIEWS,?1/ (units unknown) (unknown) (unknown) (no date) (unknown) (unknown) ??There?is?sanchez ited?ran ge?of?motion,?with?pre served?normal?alignmen t.?? (units unknown) (unknown) (unknown) (no date) (unknown) (unknown) ?at?the?L5-S1? level.?? Mod (units unknown) (unknown) (unknown) (no date) (unknown) (unknown) ?canal?stenosi s.??Mode rate?bilateral?foramin al?stenosis. (units unknown) (unknown) (unknown) (no date) (unknown) (unknown) ?stenosis. (units unknown) (unknown) (unknown) (no date) (unknown) (unknown) ?subarticular? foramina l?stenosis?bilaterally . (units unknown) (unknown) (unknown) (no date) (unknown) (unknown) Age/Sex: 67 / F Date of Service: (units unknown) (unknown) (unknown) (no date) (unknown) (unknown) Aggravating fa ctors include: standing, walking (units unknown) (unknown) (unknown) (no date) (unknown) (unknown) Alignment?and? [place]: (units unknown) (unknown) (unknown) (no date) (unknown) (unknown) All other syst ems reviewed and are unremarkable except as noted in HPI. (units unknown) (unknown) (unknown) (no date) (unknown) (unknown) Allergies (units unknown) (unknown) (unknown) (no date) (unknown) (unknown) Amitriptyline 10 mg (units unknown) (unknown) (unknown) (no date) (unknown) (unknown) [place] [address] (units unknown) (unknown) (unknown) (no date) (unknown) (unknown) Assessment + Plan (u nits unknown) (unknown) (unknown) (no date) (unknown) (unknown) Assessment: (units unknown) (unknown) (unknown) (no date) (unknown) (unknown) Attending Dr: Robin Morel MD (units unknown) (unknown) (unknown) (no date) (unknown) (unknown) Erika[facility] Caitiln ngoing Downgoing (units unknown) (unknown) (unknown) (no date) (unknown) (unknown) Bilateral?hip? arthropl asties?incompletely?vi sualized. (units unknown) (unknown) (unknown) (no date) (unknown) (unknown) Bone?Marrow: (units unknown) (unknown) (unknown) (no date) (unknown) (unknown) Bones: (units unknown) (unknown) (unknown) (no date) (unknown) (unknown) Bowel and blad jonah: Chronic bladder incontinence (units unknown) (unknown) (unknown) (no date) (unknown) (unknown) Bowel and blad jonah: No loss of control (units unknown) (unknown) (unknown) (no date) (unknown) (unknown) COMPARISON: (units unknown) (unknown) (unknown) (no date) (unknown) (unknown) COMPARISON:??None. ( units unknown) (unknown) (unknown) (no date) (unknown) (unknown) Cardiovascular : No edema or cyanosis. 2+ peripheral pulses (units unknown) (unknown) (unknown) (no date) (unknown) (unknown) Chart review: (units unknown) (unknown) (unknown) (no date) (unknown) (unknown) Chief Complaint (uni ts unknown) (unknown) (unknown) (no date) (unknown) (unknown) Chief Complain t: Follow-up (units unknown) (unknown) (unknown) (no date) (unknown) (unknown) Clonus None None (un its unknown) (unknown) (unknown) (no date) (unknown) (unknown) Conservative management includes: (units unknown) (unknown) (unknown) (no date) (unknown) (unknown) Continue curre physical therapy. [] (units unknown) (unknown) (unknown) (no date) (unknown) (unknown) Continue home exercise program. [] (units unknown) (unknown) (unknown) (no date) (unknown) (unknown) Current VAS: [] ( units unknown) (unknown) (unknown) (no date) (unknown) (unknown) : 7 Acct:[id number] (units unknown) (unknown) (unknown) (no date) (unknown) (unknown) Denies recent trauma, fever or weight loss of unknown origin, immunocompromise (units unknown) (unknown) (unknown) (no date) (unknown) (unknown) Dept at . (units unknown) (unknown) (unknown) (no date) (unknown) (unknown) Details: (units unknown) (unknown) (unknown) (no date) (unknown) (unknown) Diclofenac 75 mg (un its unknown) (unknown) (unknown) (no date) (unknown) (unknown) Documented By: Robin Morel MD 11/14/22 4001 (units unknown) (unknown) (unknown) (no date) (unknown) (unknown) Draft (units unknown) (unknown) (unknown) (no date) (unknown) (unknown) Exam Narrative (unit s unknown) (unknown) (unknown) (no date) (unknown) (unknown) Exam Narrative: (uni ts unknown) (unknown) (unknown) (no date) (unknown) (unknown) Exam (units unknown) (unknown) (unknown) (no date) (unknown) (unknown) FINDINGS:?? (units unknown) (unknown) (unknown) (no date) (unknown) (unknown) Flexion/extension: ( units unknown) (unknown) (unknown) (no date) (unknown) (unknown) Gait/Station - Non-antalgic gait. Heel (L5 strength) and toe (S1 strength) (units unknown) (unknown) (unknown) (no date) (unknown) (unknown) General: Well-nourished, well-developed, female in no acute distress (units unknown) (unknown) (unknown) (no date) (unknown) (unknown) HPI (units unknown) (unknown) (unknown) (no date) (unknown) (unknown) IMPRESSION:?? (units unknown) (unknown) (unknown) (no date) (unknown) (unknown) INDICATIONS:?? lumbar?p ain (units unknown) (unknown) (unknown) (no date) (unknown) (unknown) INDICATIONS:??pain ( units unknown) (unknown) (unknown) (no date) (unknown) (unknown) Image?quality: ??Excell ent.?? (units unknown) (unknown) (unknown) (no date) (unknown) (unknown) Injections: (units unknown) (unknown) (unknown) (no date) (unknown) (unknown) Intake (units unknown) (unknown) (unknown) (no date) (unknown) (unknown) Interval History: (u nits unknown) (unknown) (unknown) (no date) (unknown) (unknown) Intervention:?Date:?Outcome:?? ? (units unknown) (unknown) (unknown) (no date) (unknown) (unknown) JUSTIFICATION OF MEDICAL NECESSITY (units unknown) (unknown) (unknown) (no date) (unknown) (unknown) L-spine/T-spin e/C-spin e MRI ordered to better delineate the anatomy and help (units unknown) (unknown) (unknown) (no date) (unknown) (unknown) L1-L2: (units unknown) (unknown) (unknown) (no date) (unknown) (unknown) L2 Hip Flexion 5/5 5/5? (units unknown) (unknown) (unknown) (no date) (unknown) (unknown) L2-L3: (units unknown) (unknown) (unknown) (no date) (unknown) (unknown) L3 Knee Extens ion 5/5 5/5 (units unknown) (unknown) (unknown) (no date) (unknown) (unknown) L3-L4: (units unknown) (unknown) (unknown) (no date) (unknown) (unknown) L4 Ankle Dorsi flexion 5/5 5/5 (units unknown) (unknown) (unknown) (no date) (unknown) (unknown) L4 Patella 1+ 1 (uni ts unknown) (unknown) (unknown) (no date) (unknown) (unknown) L4-L5: (units unknown) (unknown) (unknown) (no date) (unknown) (unknown) L5 Long Toe Ex tension / 5/5 (units unknown) (unknown) (unknown) (no date) (unknown) (unknown) L5-S1.??Multil evel?dis c?height?loss?with?end plate?sclerosis?and?sp urring,?severe (units unknown) (unknown) (unknown) (no date) (unknown) (unknown) L5-S1: (units unknown) (unknown) (unknown) (no date) (unknown) (unknown) Loc: PAIN (units unknown) (unknown) (unknown) (no date) (unknown) (unknown) Low back pain (units unknown) (unknown) (unknown) (no date) (unknown) (unknown) Lumbar radiculopathy (units unknown) (unknown) (unknown) (no date) (unknown) (unknown) Lyrica 150 mg (units unknown) (unknown) (unknown) (no date) (unknown) (unknown) MSK: System re viewed and no additional complaints, except as documented. (units unknown) (unknown) (unknown) (no date) (unknown) (unknown) Medical Histor y (Updated 10/16/22 @ 16:44 by Robin Morel MD) (units unknown) (unknown) (unknown) (no date) (unknown) (unknown) Medications: (units unknown) (unknown) (unknown) (no date) (unknown) (unknown) Motor (units unknown) (unknown) (unknown) (no date) (unknown) (unknown) Musculoskeletal: (un its unknown) (unknown) (unknown) (no date) (unknown) (unknown) Neuro: System reviewed and no additional complaints, except as documented. (units unknown) (unknown) (unknown) (no date) (unknown) (unknown) Neurologic: (units unknown) (unknown) (unknown) (no date) (unknown) (unknown) Noncontrast?sa gittal?T 1?spin?echo?and?T2?fas t?echo,?sagittal?STIR, ?and?T2?fast?s (units unknown) (unknown) (unknown) (no date) (unknown) (unknown) Not indicated at this time. [] (units unknown) (unknown) (unknown) (no date) (unknown) (unknown) Numbness/Tingl ing: b/l posterior thighs (units unknown) (unknown) (unknown) (no date) (unknown) (unknown) Objective Data (unit s unknown) (unknown) (unknown) (no date) (unknown) (unknown) Objective Data: (uni ts unknown) (unknown) (unknown) (no date) (unknown) (unknown) Onset/Context of haritha n: (units unknown) (unknown) (unknown) (no date) (unknown) (unknown) Onset: insidious (un its unknown) (unknown) (unknown) (no date) (unknown) (unknown) Other: denies (units unknown) (unknown) (unknown) (no date) (unknown) (unknown) PFSH (units unknown) (unknown) (unknown) (no date) (unknown) (unknown) PROCEDURE:??MR ?LUMBAR? SPINE?WITHOUT?CONTRAST (units unknown) (unknown) (unknown) (no date) (unknown) (unknown) PROCEDURE:??XR ?LUMBAR? SPINE?WITH?FLEXION?EXT ENSION?5?VIEWS (units unknown) (unknown) (unknown) (no date) (unknown) (unknown) PT: [place] [facility] 6 visits in the last 6 months (units unknown) (unknown) (unknown) (no date) (unknown) (unknown) Pain Visit (units unknown) (unknown) (unknown) (no date) (unknown) (unknown) Pain location/Radiation: low back pain radiating to b/l posterior thighs (units unknown) (unknown) (unknown) (no date) (unknown) (unknown) Pain ratin /10 today, 9/10 at worst (units unknown) (unknown) (unknown) (no date) (unknown) (unknown) Paraspinous?So ft?Tissu es: (units unknown) (unknown) (unknown) (no date) (unknown) (unknown) Past medical, surgical, social, and family history is unchanged from prior (units unknown) (unknown) (unknown) (no date) (unknown) (unknown) Patient was erickson chi seen here on 10/24/2022 at which time L5-S1 interlaminar ANJEL (units unknown) (unknown) (unknown) (no date) (unknown) (unknown) Patient will r eturn for []. Risks and benefits were discussed. (units unknown) (unknown) (unknown) (no date) (unknown) (unknown) Patient's pain has been present for >6 weeks and is an average of >6/10 on 0-10 (units unknown) (unknown) (unknown) (no date) (unknown) (unknown) Patient: Judi Aguilar MR#: [id number] (units unknown) (unknown) (unknown) (no date) (unknown) (unknown) [place] miangy (Verified 10/16/22 13:06) (units unknown) (unknown) (unknown) (no date) (unknown) (unknown) Pertinent medi cations include: (units unknown) (unknown) (unknown) (no date) (unknown) (unknown) Plan (units unknown) (unknown) (unknown) (no date) (unknown) (unknown) Plan/Recommendations : (units unknown) (unknown) (unknown) (no date) (unknown) (unknown) Prescriptions Written: [] (units unknown) (unknown) (unknown) (no date) (unknown) (unknown) Previous Visit Assessment: Lona is a 67-year-old female presenting for (units unknown) (unknown) (unknown) (no date) (unknown) (unknown) Previous pain treatments included: (units unknown) (unknown) (unknown) (no date) (unknown) (unknown) Psych: Appropr iate affect, answers questions appropriately (units unknown) (unknown) (unknown) (no date) (unknown) (unknown) Quality and ti alirio of pain: Back - sharp or dull, intermittent; Legs - hurt and (units unknown) (unknown) (unknown) (no date) (unknown) (unknown) LUISA?on?07/24?at ?14:50?Approved?by: ?Leonel?Luisa?Clayton?on ?07/24/2022?at? (units unknown) (unknown) (unknown) (no date) (unknown) (unknown) ROS Narrative (units unknown) (unknown) (unknown) (no date) (unknown) (unknown) ROS Narrative: (unit s unknown) (unknown) (unknown) (no date) (unknown) (unknown) ROS (units unknown) (unknown) (unknown) (no date) (unknown) (unknown) Rash (units unknown) (unknown) (unknown) (no date) (unknown) (unknown) Reason For Visit (un its unknown) (unknown) (unknown) (no date) (unknown) (unknown) Red flag symptoms: ( units unknown) (unknown) (unknown) (no date) (unknown) (unknown) Reflex Right Left (u nits unknown) (unknown) (unknown) (no date) (unknown) (unknown) Reflexes: (units unknown) (unknown) (unknown) (no date) (unknown) (unknown) Relieving fact ors include: heat (units unknown) (unknown) (unknown) (no date) (unknown) (unknown) Respiratory: Non-labored breathing pattern on RA. No respiratory distress (units unknown) (unknown) (unknown) (no date) (unknown) (unknown) Reviewed?by:?J eff?Chof fel?RRA?Interpreted:?Luther ason?Luisa??on?07/24?at?14:49 (units unknown) (unknown) (unknown) (no date) (unknown) (unknown) Reviewed?by:?Johnathon lutz?Kyle?Clayton?on?09/20/2022 ?at?14:57???Transcribe d?by:?CANNON?on (units unknown) (unknown) (unknown) (no date) (unknown) (unknown) S1 Achilles 1+ 1 (un its unknown) (unknown) (unknown) (no date) (unknown) (unknown) S1 Ankle Plantarflexion 5/5 5/5 (units unknown) (unknown) (unknown) (no date) (unknown) (unknown) S1?where?there ?is?asso ciated?intraforaminal? nerve?root?compression .?Recommend?co (units unknown) (unknown) (unknown) (no date) (unknown) (unknown) Saddle anesthe kelby: denies (units unknown) (unknown) (unknown) (no date) (unknown) (unknown) Segment Action Right Left (units unknown) (unknown) (unknown) (no date) (unknown) (unknown) Segment Reflex Right Left (units unknown) (unknown) (unknown) (no date) (unknown) (unknown) Sensory -? Int act to light touch of bilateral lower extremities. Allodynia (units unknown) (unknown) (unknown) (no date) (unknown) (unknown) Signed By: (units unknown) (unknown) (unknown) (no date) (unknown) (unknown) Skin: No appre ciable rashes or skin breakdown (units unknown) (unknown) (unknown) (no date) (unknown) (unknown) Smoking Status : Never smoker (units unknown) (unknown) (unknown) (no date) (unknown) (unknown) Soft?tissues: (units unknown) (unknown) (unknown) (no date) (unknown) (unknown) Spinal?Cord: (units unknown) (unknown) (unknown) (no date) (unknown) (unknown) Standing: incr eased LBP (units unknown) (unknown) (unknown) (no date) (unknown) (unknown) Surgery: denies (uni ts unknown) (unknown) (unknown) (no date) (unknown) (unknown) T12-L1: (units unknown) (unknown) (unknown) (no date) (unknown) (unknown) T2?fast?spin?e cho?may? be?performed.?? (units unknown) (unknown) (unknown) (no date) (unknown) (unknown) TECHNIQUE: (units unknown) (unknown) (unknown) (no date) (unknown) (unknown) TECHNIQUE:?? (units unknown) (unknown) (unknown) (no date) (unknown) (unknown) [facility] (units unknown) (unknown) (unknown) (no date) (unknown) (unknown) This note may have been all or partially generated using voice recognition (units unknown) (unknown) (unknown) (no date) (unknown) (unknown) Tobacco + Subs tance Use (units unknown) (unknown) (unknown) (no date) (unknown) (unknown) Tobacco Status (unit s unknown) (unknown) (unknown) (no date) (unknown) (unknown) Today I have r eviewed available medical information in the patient's medical (units unknown) (unknown) (unknown) (no date) (unknown) (unknown) Tylenol (units unknown) (unknown) (unknown) (no date) (unknown) (unknown) Upper Motor Ne uron Signs: (units unknown) (unknown) (unknown) (no date) (unknown) (unknown) Visit Reasons: FOLLOW UP ANJEL (units unknown) (unknown) (unknown) (no date) (unknown) (unknown) Walking: increased L BP (units unknown) (unknown) (unknown) (no date) (unknown) (unknown) [place] Prescription Monitoring Program ([employer]) was reviewed. (units unknown) (unknown) (unknown) (no date) (unknown) (unknown) We reviewed et iology, predisposing factor(s), natural course, imaging results as (units unknown) (unknown) (unknown) (no date) (unknown) (unknown) Weakness: denies (un its unknown) (unknown) (unknown) (no date) (unknown) (unknown) actures.??No?s uspiciou s?bony?lesions.?? (units unknown) (unknown) (unknown) (no date) (unknown) (unknown) anal?stenosis. ??Mild?b ilateral?foraminal?james nosis. (units unknown) (unknown) (unknown) (no date) (unknown) (unknown) at?the?L5-S1?level. (units unknown) (unknown) (unknown) (no date) (unknown) (unknown) benefits of va rious treatment options were discussed with the patient in great (units unknown) (unknown) (unknown) (no date) (unknown) (unknown) bowel/bladder dysfunction, and perineal numbness were discussed. The patient was (units unknown) (unknown) (unknown) (no date) (unknown) (unknown) cannot tolerat e physical therapy at the current time due to the intensity of the (units unknown) (unknown) (unknown) (no date) (unknown) (unknown) consider media l branch blocks and RFA.? Medrol Dosepak was also ordered to help (units unknown) (unknown) (unknown) (no date) (unknown) (unknown) d?facet?and?li gamentum ?flavum?hypertrophy.?? Mild?epidural?lipomato sis.??Moderate (units unknown) (unknown) (unknown) (no date) (unknown) (unknown) detail. (units unknown) (unknown) (unknown) (no date) (unknown) (unknown) erate?facet?an d?ligame ntum?flavum?hypertroph y.??Severe?canal?steno sis.??Moderate (units unknown) (unknown) (unknown) (no date) (unknown) (unknown) erate?facet?dede int?arth ropathy?L4-L5?and?L5-S 1.??No?vertebral?body? compression?fr (units unknown) (unknown) (unknown) (no date) (unknown) (unknown) es?normal?sign al?and?s ize.?? (units unknown) (unknown) (unknown) (no date) (unknown) (unknown) et?and?ligamen jolly?flav um?hypertrophy.??Mild? canal?stenosis.??Sever e?bilateral?fo (units unknown) (unknown) (unknown) (no date) (unknown) (unknown) et?and?ligamen jolly?flav um?hypertrophy.??Mild? epidural?lipomatosis.? ?Mild?c (units unknown) (unknown) (unknown) (no date) (unknown) (unknown) et?and?ligamen jolly?flav um?hypertrophy.??Moder ate?canal?stenosis.??M ild?bilateral? (units unknown) (unknown) (unknown) (no date) (unknown) (unknown) extremities.? Her pain is likely multifactorial with major components of (units unknown) (unknown) (unknown) (no date) (unknown) (unknown) foraminal?stenosis. (units unknown) (unknown) (unknown) (no date) (unknown) (unknown) further evalua tion of chronic low back pain with radiation down bilateral lower (units unknown) (unknown) (unknown) (no date) (unknown) (unknown) have occurred. If there are any questions, please contact the Medical Records (units unknown) (unknown) (unknown) (no date) (unknown) (unknown) hypertrophy?an d?epidur al?lipomatosis. (units unknown) (unknown) (unknown) (no date) (unknown) (unknown) improved sleep , improved mobility, etc. (units unknown) (unknown) (unknown) (no date) (unknown) (unknown) in PT. [] (units unknown) (unknown) (unknown) (no date) (unknown) (unknown) instructed to report to the Emergency department, if these symptoms occur. (units unknown) (unknown) (unknown) (no date) (unknown) (unknown) instructed to stop if any side effects. [] (units unknown) (unknown) (unknown) (no date) (unknown) (unknown) intravenous dr ug use, sustained glucocorticoid use, osteoporosis, or a focal (units unknown) (unknown) (unknown) (no date) (unknown) (unknown) local anesthet ic. During that time patient able to participate in ADLs, had (units unknown) (unknown) (unknown) (no date) (unknown) (unknown) may occur. Occ asional wrong-word or 'sound-alike' substitutions may have (units unknown) (unknown) (unknown) (no date) (unknown) (unknown) meds. [] (units unknown) (unknown) (unknown) (no date) (unknown) (unknown) morphine Aller gy (Mild, Verified 10/24/22 10:22) (units unknown) (unknown) (unknown) (no date) (unknown) (unknown) nd?L5?on?S1. (units unknown) (unknown) (unknown) (no date) (unknown) (unknown) negative, Hype ralgesia - negative (units unknown) (unknown) (unknown) (no date) (unknown) (unknown) neurological d eficit with progressive or disabling symptoms. (units unknown) (unknown) (unknown) (no date) (unknown) (unknown) ns.??Cholecyst ectomy?c lips. (units unknown) (unknown) (unknown) (no date) (unknown) (unknown) occurred due t o the inherent limitations of voice recognition software. Please (units unknown) (unknown) (unknown) (no date) (unknown) (unknown) of Spinal Cord Injur y) (units unknown) (unknown) (unknown) (no date) (unknown) (unknown) or immunosuppr essive therapy, previous or current cancer diagnosis, history of (units unknown) (unknown) (unknown) (no date) (unknown) (unknown) pain. [] (units unknown) (unknown) (unknown) (no date) (unknown) (unknown) pin?echo?throu gh?the?l umbar?spine.??In?cases ?with?scoliosis,?addit ional?coronal? (units unknown) (unknown) (unknown) (no date) (unknown) (unknown) racic?spine. (units unknown) (unknown) (unknown) (no date) (unknown) (unknown) radicular and axial pain.? She would likely benefit from an L5-S1 epidural (units unknown) (unknown) (unknown) (no date) (unknown) (unknown) raminal?stenos is?with? bilateral?L5?nerve?ghanshyam t?compression. (units unknown) (unknown) (unknown) (no date) (unknown) (unknown) read the note carefully and recognize, using context, where these substitutions (units unknown) (unknown) (unknown) (no date) (unknown) (unknown) record, includ ing relevant provider notes, laboratory work, and imaging. (units unknown) (unknown) (unknown) (no date) (unknown) (unknown) rmal?lumbar?lo rdosis.? ?3?mm?of?retrolisthesi s?of?L1?on?L2,?L2?on?L 3,?L3?on?L4,?a (units unknown) (unknown) (unknown) (no date) (unknown) (unknown) rrelation?with ?clinica l?symptoms?to?ascertai n?relevance?of?this?fi nding.? (units unknown) (unknown) (unknown) (no date) (unknown) (unknown) s.??Moderate?c anal?james nosis?at?L2-L3?and?L3- L4. (units unknown) (unknown) (unknown) (no date) (unknown) (unknown) scale and/or p ain interferes with ADLs. (units unknown) (unknown) (unknown) (no date) (unknown) (unknown) software. Alth ough every effort is made to edit content, managed security sales consultant errors (units unknown) (unknown) (unknown) (no date) (unknown) (unknown) stability intact. (u nits unknown) (unknown) (unknown) (no date) (unknown) (unknown) steroid inject ion.? If she continues to have low back pain after this injection, (units unknown) (unknown) (unknown) (no date) (unknown) (unknown) therapeutic in jections and surgery. The risks, consequences, alternatives and (units unknown) (unknown) (unknown) (no date) (unknown) (unknown) therapy. ?A re ferral was provided for the patient. [] (units unknown) (unknown) (unknown) (no date) (unknown) (unknown) ures.??Mild?re active?s ignal?throughout?the?e ndplates?of?the?lumbar ?and?lower?tho (units unknown) (unknown) (unknown) (no date) (unknown) (unknown) visit. (units unknown) (unknown) (unknown) (no date) (unknown) (unknown) walking intact . Tandem gait normal without evidence of ataxia. Lower quarter (units unknown) (unknown) (unknown) (no date) (unknown) (unknown) was performed. Since that time (units unknown) (unknown) (unknown) (no date) (unknown) (unknown) weak (units unknown) (unknown) (unknown) (no date) (unknown) (unknown) well as treatm ent options including medications, physical therapy/exercise, (units unknown) (unknown) (unknown) (no date) (unknown) (unknown) with future tr eatment planning. [] (units unknown) (unknown) (unknown) (no date) (unknown) (unknown) with short-ter m pain relief.' (units unknown) (unknown) Result panel 13 (unknown) (no date) (unknown) (unknown) (no value) (units unknown) (unknown) (unknown) (no date) (unknown) (unknown) (0=absent, 1=s light response, 2=brisk/normal, 3=very brisk, 4=clonus) (units unknown) (unknown) (unknown) (no date) (unknown) (unknown) (segments are from the International Standards for Neurological Classification (units unknown) (unknown) (unknown) (no date) (unknown) (unknown) - Activity: Co ntinue activity as tolerated. [] (units unknown) (unknown) (unknown) (no date) (unknown) (unknown) - Chiropractor , acupuncture[] (units unknown) (unknown) (unknown) (no date) (unknown) (unknown) - Continues cl inician directed home exercise program including exercises learned (units unknown) (unknown) (unknown) (no date) (unknown) (unknown) - Education: C auda equina and associated symptoms, including motor weakness, (units unknown) (unknown) (unknown) (no date) (unknown) (unknown) - FADIR: Negat eileen bilaterally (units unknown) (unknown) (unknown) (no date) (unknown) (unknown) - Follow-up: [] (uni ts unknown) (unknown) (unknown) (no date) (unknown) (unknown) - Hip ROM is: Within normal limits (units unknown) (unknown) (unknown) (no date) (unknown) (unknown) - I discussed risks, benefits and side effects. Additionally, patient was (units unknown) (unknown) (unknown) (no date) (unknown) (unknown) - Imaging: No new imaging indicated at this time. [] (units unknown) (unknown) (unknown) (no date) (unknown) (unknown) - Interventional/Surgica l procedures: None indicated at this time. [] (units unknown) (unknown) (unknown) (no date) (unknown) (unknown) - Lumbar facet loading: Positive bilaterally (units unknown) (unknown) (unknown) (no date) (unknown) (unknown) - Medications: No new prescription at this time. Patient will continue current (units unknown) (unknown) (unknown) (no date) (unknown) (unknown) - Medications: acetaminophen, NSAIDS, neuropathics, muscle relaxants [] (units unknown) (unknown) (unknown) (no date) (unknown) (unknown) - Physical The rapy: Completed 6 week course in the last 6 months OR Patient (units unknown) (unknown) (unknown) (no date) (unknown) (unknown) - Physical therapy/modalities/DME : Patient will likely benefit from physical (units unknown) (unknown) (unknown) (no date) (unknown) (unknown) - Prescription provided and uptitration instructions given if necessary. [] (units unknown) (unknown) (unknown) (no date) (unknown) (unknown) - Previous [] on [] provided []% relief of pain for the expected duration of the (units unknown) (unknown) (unknown) (no date) (unknown) (unknown) - Referrals: N one indicated at this time. [] (units unknown) (unknown) (unknown) (no date) (unknown) (unknown) - SIJ provocat ion testing: Negative bilaterally (units unknown) (unknown) (unknown) (no date) (unknown) (unknown) - Straight Leg Raise: Positive for leg pain on the left (units unknown) (unknown) (unknown) (no date) (unknown) (unknown) [id number] (units unknown) (unknown) (unknown) (no date) (unknown) (unknown) 10/17/22 (units unknown) (unknown) (unknown) (no date) (unknown) (unknown) 1.?Multilevel? degenera tive?disc?and?facet?di sease,?as?well?as?liga mentum?flavum? (units unknown) (unknown) (unknown) (no date) (unknown) (unknown) 1.Limited?rang e?of?mot ion?and?multilevel?lum bar?spine?spondylosis, ?most?notably? (units unknown) (unknown) (unknown) (no date) (unknown) (unknown) 15:37??? (units unknown) (unknown) (unknown) (no date) (unknown) (unknown) 2.?Multilevel? canal?st enoses,?worst?at?L4-L5 ?where?there?is?severe ?canal?stenosi (units unknown) (unknown) (unknown) (no date) (unknown) (unknown) ,?14:34. (uni ts unknown) (unknown) (unknown) (no date) (unknown) (unknown) 3.?Multilevel? foramina l?stenoses,?worst?at?L 5 (units unknown) (unknown) (unknown) (no date) (unknown) (unknown) 4.??Left?iliop soas?mus ronald?atrophy.?? (units unknown) (unknown) (unknown) (no date) (unknown) (unknown) 5-S1?level.??M oderate? facet?joint?arthropath y?L4-L5?and?L5-S1.??No ?vertebral?bod (units unknown) (unknown) (unknown) (no date) (unknown) (unknown) ? Inspection - ? No gross appendicular or axial deformities (units unknown) (unknown) (unknown) (no date) (unknown) (unknown) ? Palpation -n o tenderness to palpation (units unknown) (unknown) (unknown) (no date) (unknown) (unknown) ? ROM -lumbar extension limited due to pain (units unknown) (unknown) (unknown) (no date) (unknown) (unknown) ? Special tests (uni ts unknown) (unknown) (unknown) (no date) (unknown) (unknown) ?09/20/2022?at?15:01 (units unknown) (unknown) (unknown) (no date) (unknown) (unknown) ??5?lumbar?typ e?verteb ral?bodies?are?present ?by?plain?film.??There ?is?loss?of?no (units unknown) (unknown) (unknown) (no date) (unknown) (unknown) ??5?nonrib-viviana ring?bre tebrae?are?present.??3 ?mm?retrolisthesis?L2- L3,?L3-L4?and? (units unknown) (unknown) (unknown) (no date) (unknown) (unknown) ??5?views?of?t he?lumba r?spine?acquired,?incl uding?flexion?and?exte nsion?views.? (units unknown) (unknown) (unknown) (no date) (unknown) (unknown) ? Acetaminophen -denies (units unknown) (unknown) (unknown) (no date) (unknown) (unknown) ? Antidepressants -current (units unknown) (unknown) (unknown) (no date) (unknown) (unknown) ? Antiepileptics -current (units unknown) (unknown) (unknown) (no date) (unknown) (unknown) ? Mu scle Relaxants -cyclobenzaprine (units unknown) (unknown) (unknown) (no date) (unknown) (unknown) ? NS AIDs -current (units unknown) (unknown) (unknown) (no date) (unknown) (unknown) ? Op ioids -denies (units unknown) (unknown) (unknown) (no date) (unknown) (unknown) ? St eroids -denies (units unknown) (unknown) (unknown) (no date) (unknown) (unknown) ? To picals -denies (units unknown) (unknown) (unknown) (no date) (unknown) (unknown) ???Transcribed?by:?J C (units unknown) (unknown) (unknown) (no date) (unknown) (unknown) ??Conus?medull cade?ter minates?at?the?lower?L 1?level.??Visualized?c ord?demonstrat (units unknown) (unknown) (unknown) (no date) (unknown) (unknown) ??Marrow?is?of ?normal? overall?signal.??No?ac [place]?vertebral?body?com pression?fract (units unknown) (unknown) (unknown) (no date) (unknown) (unknown) ??Moderate?dis c?desicc ation.??Mild?disc?heig ht?loss?and?diffuse?di sc?bulge.??Mil (units unknown) (unknown) (unknown) (no date) (unknown) (unknown) ??Moderate?dis c?desicc ation.??Mild?disc?heig ht?loss?and?diffuse?di sc?bulge.??Mod (units unknown) (unknown) (unknown) (no date) (unknown) (unknown) ??Moderate?dis c?height ?loss?and?desiccation. ??Mild?diffuse?disc?bu lge.??Mild?fac (units unknown) (unknown) (unknown) (no date) (unknown) (unknown) ??Moderate?dis c?height ?loss?and?desiccation. ??No?significant?canal ,?or?foraminal (units unknown) (unknown) (unknown) (no date) (unknown) (unknown) ??No?paraverte bral?mas ses.??There?is?asymmet david?left?ileo?psoas?at rophy. (units unknown) (unknown) (unknown) (no date) (unknown) (unknown) ??Overlying?israel wel?gas? pattern?is?normal.??No ?suspicious?soft?tissu e?calcificatio (units unknown) (unknown) (unknown) (no date) (unknown) (unknown) ??[facility],?CR,?XR?LUMBAR?SPIN E?WITH?FLEXION?EXTENSI ON?5?VIEWS,?1/ (units unknown) (unknown) (unknown) (no date) (unknown) (unknown) ??There?is?sanchez ited?ran ge?of?motion,?with?pre served?normal?alignmen t.?? (units unknown) (unknown) (unknown) (no date) (unknown) (unknown) ?at?the?L (units unknown) (unknown) (unknown) (no date) (unknown) (unknown) ?canal?stenosi s.??Mode rate?bilateral?foramin al?stenosis. (units unknown) (unknown) (unknown) (no date) (unknown) (unknown) ?stenosis. (units unknown) (unknown) (unknown) (no date) (unknown) (unknown) Age/Sex: 67 / F Date of Service: (units unknown) (unknown) (unknown) (no date) (unknown) (unknown) Aggravating fa ctors include: standing, walking (units unknown) (unknown) (unknown) (no date) (unknown) (unknown) Alignment?and? [place]: (units unknown) (unknown) (unknown) (no date) (unknown) (unknown) All other syst ems reviewed and are unremarkable except as noted in HPI. (units unknown) (unknown) (unknown) (no date) (unknown) (unknown) Allergies (units unknown) (unknown) (unknown) (no date) (unknown) (unknown) Amitriptyline 10 mg (units unknown) (unknown) (unknown) (no date) (unknown) (unknown) HEIDY [place] [id number] (units unknown) (unknown) (unknown) (no date) (unknown) (unknown) Assessment + Plan (u nits unknown) (unknown) (unknown) (no date) (unknown) (unknown) Assessment: (units unknown) (unknown) (unknown) (no date) (unknown) (unknown) Attending Dr: Robin Morel MD (units unknown) (unknown) (unknown) (no date) (unknown) (unknown) RosendoComposeright's Caitlin ngoing Downgoing (units unknown) (unknown) (unknown) (no date) (unknown) (unknown) Bilateral?hip? arthropl asties?incompletely?vi sualized. (units unknown) (unknown) (unknown) (no date) (unknown) (unknown) Bone?Marrow: (units unknown) (unknown) (unknown) (no date) (unknown) (unknown) Bones: (units unknown) (unknown) (unknown) (no date) (unknown) (unknown) Bowel and blad jonah: Chronic bladder incontinence (units unknown) (unknown) (unknown) (no date) (unknown) (unknown) Bowel and blad jonah: No loss of control (units unknown) (unknown) (unknown) (no date) (unknown) (unknown) COMPARISON: (units unknown) (unknown) (unknown) (no date) (unknown) (unknown) COMPARISON:??None. ( units unknown) (unknown) (unknown) (no date) (unknown) (unknown) Cardiovascular : No edema or cyanosis. 2+ peripheral pulses (units unknown) (unknown) (unknown) (no date) (unknown) (unknown) Chart review: (units unknown) (unknown) (unknown) (no date) (unknown) (unknown) Chief Complaint (uni ts unknown) (unknown) (unknown) (no date) (unknown) (unknown) Chief Complain t: Follow-up (units unknown) (unknown) (unknown) (no date) (unknown) (unknown) Clonus None None (un its unknown) (unknown) (unknown) (no date) (unknown) (unknown) Conservative management includes: (units unknown) (unknown) (unknown) (no date) (unknown) (unknown) Continue [facility] physical therapy. [] (units unknown) (unknown) (unknown) (no date) (unknown) (unknown) Continue home exercise program. [] (units unknown) (unknown) (unknown) (no date) (unknown) (unknown) Current VAS: []10 ( units unknown) (unknown) (unknown) (no date) (unknown) (unknown) : 7 Acct:[id number] (units unknown) (unknown) (unknown) (no date) (unknown) (unknown) Denies recent trauma, fever or weight loss of unknown origin, immunocompromise (units unknown) (unknown) (unknown) (no date) (unknown) (unknown) Dept at . (units unknown) (unknown) (unknown) (no date) (unknown) (unknown) Details: (units unknown) (unknown) (unknown) (no date) (unknown) (unknown) Diclofenac 75 mg (un its unknown) (unknown) (unknown) (no date) (unknown) (unknown) Documented By: Robin Morel MD 11/14/22 [id number] (units unknown) (unknown) (unknown) (no date) (unknown) (unknown) Draft (units unknown) (unknown) (unknown) (no date) (unknown) (unknown) Exam Narrative (unit s unknown) (unknown) (unknown) (no date) (unknown) (unknown) Exam Narrative: (uni ts unknown) (unknown) (unknown) (no date) (unknown) (unknown) Exam (units unknown) (unknown) (unknown) (no date) (unknown) (unknown) FINDINGS:?? (units unknown) (unknown) (unknown) (no date) (unknown) (unknown) Flexion/extension: ( units unknown) (unknown) (unknown) (no date) (unknown) (unknown) Gait/Station - Non-antalgic gait. Heel (L5 strength) and toe (S1 strength) (units unknown) (unknown) (unknown) (no date) (unknown) (unknown) General: Well-nourished, well-developed, female in no acute distress (units unknown) (unknown) (unknown) (no date) (unknown) (unknown) HPI (units unknown) (unknown) (unknown) (no date) (unknown) (unknown) IMPRESSION:?? (units unknown) (unknown) (unknown) (no date) (unknown) (unknown) INDICATIONS:?? lumbar?p ain (units unknown) (unknown) (unknown) (no date) (unknown) (unknown) INDICATIONS:??pain ( units unknown) (unknown) (unknown) (no date) (unknown) (unknown) Image?quality: ??Excell ent.?? (units unknown) (unknown) (unknown) (no date) (unknown) (unknown) Injections: (units unknown) (unknown) (unknown) (no date) (unknown) (unknown) Intake (units unknown) (unknown) (unknown) (no date) (unknown) (unknown) Interval History: (u nits unknown) (unknown) (unknown) (no date) (unknown) (unknown) Intervention:?Date:?Outcome:?? ? (units unknown) (unknown) (unknown) (no date) (unknown) (unknown) JUSTIFICATION OF MEDICAL NECESSITY (units unknown) (unknown) (unknown) (no date) (unknown) (unknown) L-spine/T-spin e/C-spin e MRI ordered to better delineate the anatomy and help (units unknown) (unknown) (unknown) (no date) (unknown) (unknown) L1-L2: (units unknown) (unknown) (unknown) (no date) (unknown) (unknown) L2 Hip Flexion 5/5 5/5? (units unknown) (unknown) (unknown) (no date) (unknown) (unknown) L2-L3: (units unknown) (unknown) (unknown) (no date) (unknown) (unknown) L3 Knee Extens ion 5/5 5/5 (units unknown) (unknown) (unknown) (no date) (unknown) (unknown) L3-L4: (units unknown) (unknown) (unknown) (no date) (unknown) (unknown) L4 Ankle Dorsi flexion 5/5 5/5 (units unknown) (unknown) (unknown) (no date) (unknown) (unknown) L4 Patella 1+ 1 (uni ts unknown) (unknown) (unknown) (no date) (unknown) (unknown) L4-L5: (units unknown) (unknown) (unknown) (no date) (unknown) (unknown) L5 Long Toe Ex tension 5/5 5/5 (units unknown) (unknown) (unknown) (no date) (unknown) (unknown) L5-S1 IL ANJEL? 10/24/2022? (units unknown) (unknown) (unknown) (no date) (unknown) (unknown) L5-S1.??Multil evel?dis c?height?loss?with?end plate?sclerosis?and?sp urring,?severe (units unknown) (unknown) (unknown) (no date) (unknown) (unknown) L5-S1: (units unknown) (unknown) (unknown) (no date) (unknown) (unknown) Loc: PAIN (units unknown) (unknown) (unknown) (no date) (unknown) (unknown) Low back pain (units unknown) (unknown) (unknown) (no date) (unknown) (unknown) Lumbar radiculopathy (units unknown) (unknown) (unknown) (no date) (unknown) (unknown) Lyrica 150 mg (units unknown) (unknown) (unknown) (no date) (unknown) (unknown) MSK: System re viewed and no additional complaints, except as documented. (units unknown) (unknown) (unknown) (no date) (unknown) (unknown) Medical Histor y (Updated 10/16/22 @ 16:44 by Robin Morel MD) (units unknown) (unknown) (unknown) (no date) (unknown) (unknown) Medications: (units unknown) (unknown) (unknown) (no date) (unknown) (unknown) Motor (units unknown) (unknown) (unknown) (no date) (unknown) (unknown) Musculoskeletal: (un its unknown) (unknown) (unknown) (no date) (unknown) (unknown) Neuro: System reviewed and no additional complaints, except as documented. (units unknown) (unknown) (unknown) (no date) (unknown) (unknown) Neurologic: (units unknown) (unknown) (unknown) (no date) (unknown) (unknown) Noncontrast?sa gittal?T 1?spin?echo?and?T2?fas t?echo,?sagittal?STIR, ?and?T2?fast?s (units unknown) (unknown) (unknown) (no date) (unknown) (unknown) Not indicated at this time. [] (units unknown) (unknown) (unknown) (no date) (unknown) (unknown) Numbness/Tingl ing: b/l posterior thighs (units unknown) (unknown) (unknown) (no date) (unknown) (unknown) Objective Data (unit s unknown) (unknown) (unknown) (no date) (unknown) (unknown) Objective Data: (uni ts unknown) (unknown) (unknown) (no date) (unknown) (unknown) Onset/Context of haritha n: (units unknown) (unknown) (unknown) (no date) (unknown) (unknown) Onset: insidious (un its unknown) (unknown) (unknown) (no date) (unknown) (unknown) Other: denies (units unknown) (unknown) (unknown) (no date) (unknown) (unknown) PFSH (units unknown) (unknown) (unknown) (no date) (unknown) (unknown) PROCEDURE:??MR ?LUMBAR? SPINE?WITHOUT?CONTRAST (units unknown) (unknown) (unknown) (no date) (unknown) (unknown) PROCEDURE:??XR ?LUMBAR? SPINE?WITH?FLEXION?EXT ENSION?5?VIEWS (units unknown) (unknown) (unknown) (no date) (unknown) (unknown) PT: Whjocelynn He alth 6 visits in the last 6 months (units unknown) (unknown) (unknown) (no date) (unknown) (unknown) Pain Visit (units unknown) (unknown) (unknown) (no date) (unknown) (unknown) Pain location/Radiation: low back pain radiating to b/l posterior thighs (units unknown) (unknown) (unknown) (no date) (unknown) (unknown) Pain ratin /10 today, 9/10 at worst (units unknown) (unknown) (unknown) (no date) (unknown) (unknown) Paraspinous?So ft?Tissu es: (units unknown) (unknown) (unknown) (no date) (unknown) (unknown) Past medical, surgical, social, and family history is unchanged from prior (units unknown) (unknown) (unknown) (no date) (unknown) (unknown) Patient was la st seen here on 10/24/2022 at which time L5-S1 interlaminar ANJEL (units unknown) (unknown) (unknown) (no date) (unknown) (unknown) Patient will r eturn for []. Risks and benefits were discussed. (units unknown) (unknown) (unknown) (no date) (unknown) (unknown) Patient's pain has been present for >6 weeks and is an average of >6/10 on 0-10 (units unknown) (unknown) (unknown) (no date) (unknown) (unknown) Patient: Judi Aguilar MR#: [id number] (units unknown) (unknown) (unknown) (no date) (unknown) (unknown) [place] miangy (Verified 10/16/22 13:06) (units unknown) (unknown) (unknown) (no date) (unknown) (unknown) Pertinent medi cations include: (units unknown) (unknown) (unknown) (no date) (unknown) (unknown) Plan (units unknown) (unknown) (unknown) (no date) (unknown) (unknown) Plan/Recommendations : (units unknown) (unknown) (unknown) (no date) (unknown) (unknown) Prescriptions Written: [] (units unknown) (unknown) (unknown) (no date) (unknown) (unknown) Previous Visit Assessment: 'Judi is a 67-year-old female presenting for (units unknown) (unknown) (unknown) (no date) (unknown) (unknown) Previous pain treatments included: (units unknown) (unknown) (unknown) (no date) (unknown) (unknown) Psych: Appropr iate affect, answers questions appropriately (units unknown) (unknown) (unknown) (no date) (unknown) (unknown) Quality and ti alirio of pain: Back - sharp or dull, intermittent; Legs - hurt and (units unknown) (unknown) (unknown) (no date) (unknown) (unknown) LUISA?on?07/24?at ?14:50?Approved?by: ?Leonel?Luisa?Clayton?on ?07/24/2022?at? (units unknown) (unknown) (unknown) (no date) (unknown) (unknown) ROS Narrative (units unknown) (unknown) (unknown) (no date) (unknown) (unknown) ROS Narrative: (unit s unknown) (unknown) (unknown) (no date) (unknown) (unknown) ROS (units unknown) (unknown) (unknown) (no date) (unknown) (unknown) Rash (units unknown) (unknown) (unknown) (no date) (unknown) (unknown) Reason For Visit (un its unknown) (unknown) (unknown) (no date) (unknown) (unknown) Red flag symptoms: ( units unknown) (unknown) (unknown) (no date) (unknown) (unknown) Reflex Right Left (u nits unknown) (unknown) (unknown) (no date) (unknown) (unknown) Reflexes: (units unknown) (unknown) (unknown) (no date) (unknown) (unknown) Relieving fact ors include: heat (units unknown) (unknown) (unknown) (no date) (unknown) (unknown) Respiratory: Non-labored breathing pattern on RA. No respiratory distress (units unknown) (unknown) (unknown) (no date) (unknown) (unknown) Reviewed?by:?J eff?Chof fel?RRA?Interpreted:?Luther pathakn?Luisa??on?07/24?at?14:49 (units unknown) (unknown) (unknown) (no date) (unknown) (unknown) Reviewed?by:?Johnathon lutz?Kyle,?M.D.?on?09/20/2022 ?at?14:57???Transcribe d?by:?CANNON?on (units unknown) (unknown) (unknown) (no date) (unknown) (unknown) S1 Achilles 1+ 1 (un its unknown) (unknown) (unknown) (no date) (unknown) (unknown) S1 Ankle Plantarflexion 5/5 5/5 (units unknown) (unknown) (unknown) (no date) (unknown) (unknown) S1?where?there ?is?asso ciated?intraforaminal? nerve?root?compression .?Recommend?co (units unknown) (unknown) (unknown) (no date) (unknown) (unknown) Saddle anesthe kelby: denies (units unknown) (unknown) (unknown) (no date) (unknown) (unknown) Segment Action Right Left (units unknown) (unknown) (unknown) (no date) (unknown) (unknown) Segment Reflex Right Left (units unknown) (unknown) (unknown) (no date) (unknown) (unknown) Sensory -? Int act to light touch of bilateral lower extremities. Allodynia (units unknown) (unknown) (unknown) (no date) (unknown) (unknown) Signed By: (units unknown) (unknown) (unknown) (no date) (unknown) (unknown) Skin: No appre ciable rashes or skin breakdown (units unknown) (unknown) (unknown) (no date) (unknown) (unknown) Smoking Status : Never smoker (units unknown) (unknown) (unknown) (no date) (unknown) (unknown) Soft?tissues: (units unknown) (unknown) (unknown) (no date) (unknown) (unknown) Spinal?Cord: (units unknown) (unknown) (unknown) (no date) (unknown) (unknown) Standing: incr eased LBP (units unknown) (unknown) (unknown) (no date) (unknown) (unknown) Surgery: denies (uni ts unknown) (unknown) (unknown) (no date) (unknown) (unknown) T12-L1: (units unknown) (unknown) (unknown) (no date) (unknown) (unknown) T2?fast?spin?e cho?may? be?performed.?? (units unknown) (unknown) (unknown) (no date) (unknown) (unknown) TECHNIQUE: (units unknown) (unknown) (unknown) (no date) (unknown) (unknown) TECHNIQUE:?? (units unknown) (unknown) (unknown) (no date) (unknown) (unknown) [facility] (units unknown) (unknown) (unknown) (no date) (unknown) (unknown) This note may have been all or partially generated using voice recognition (units unknown) (unknown) (unknown) (no date) (unknown) (unknown) Tobacco + Subs tance Use (units unknown) (unknown) (unknown) (no date) (unknown) (unknown) Tobacco Status (unit s unknown) (unknown) (unknown) (no date) (unknown) (unknown) Today I have r eviewed available medical information in the patient's medical (units unknown) (unknown) (unknown) (no date) (unknown) (unknown) Tylenol (units unknown) (unknown) (unknown) (no date) (unknown) (unknown) Upper Motor Ne uron Signs: (units unknown) (unknown) (unknown) (no date) (unknown) (unknown) Visit Reasons: FOLLOW UP ANJEL (units unknown) (unknown) (unknown) (no date) (unknown) (unknown) Walking: increased L BP (units unknown) (unknown) (unknown) (no date) (unknown) (unknown) [place] Prescription Monitoring Program ([employer]) was reviewed. (units unknown) (unknown) (unknown) (no date) (unknown) (unknown) We reviewed et iology, predisposing factor(s), natural course, imaging results as (units unknown) (unknown) (unknown) (no date) (unknown) (unknown) Weakness: denies (un its unknown) (unknown) (unknown) (no date) (unknown) (unknown) at?the?L5-S1?level. (units unknown) (unknown) (unknown) (no date) (unknown) (unknown) benefits of va rious treatment options were discussed with the patient in great (units unknown) (unknown) (unknown) (no date) (unknown) (unknown) bowel/bladder dysfunction, and perineal numbness were discussed. The patient was (units unknown) (unknown) (unknown) (no date) (unknown) (unknown) cannot tolerat e physical therapy at the current time due to the intensity of the (units unknown) (unknown) (unknown) (no date) (unknown) (unknown) consider media l branch blocks and RFA.? Medrol Dosepak was also ordered to help (units unknown) (unknown) (unknown) (no date) (unknown) (unknown) d?facet?and?li gamentum ?flavum?hypertrophy.?? Mild?epidural?lipomato sis.??Moderate (units unknown) (unknown) (unknown) (no date) (unknown) (unknown) detail. (units unknown) (unknown) (unknown) (no date) (unknown) (unknown) enosis.??Mild? bilatera l?foraminal?stenosis. (units unknown) (unknown) (unknown) (no date) (unknown) (unknown) erate?facet?an d?ligame ntum?flavum?hypertroph y.??Severe?canal?steno sis.??Mod (units unknown) (unknown) (unknown) (no date) (unknown) (unknown) erate?subartic ular?for aminal?stenosis?bilate rally. (units unknown) (unknown) (unknown) (no date) (unknown) (unknown) es?normal?sign al?and?s ize.?? (units unknown) (unknown) (unknown) (no date) (unknown) (unknown) et?and?ligamen jolly?flav um?hypertrophy.??Mild? canal?stenosis.??Sever e?bilateral?fo (units unknown) (unknown) (unknown) (no date) (unknown) (unknown) et?and?ligamen jolly?flav um?hypertrophy.??Mild? epidural?lipomatosis.? ?Mild?canal?st (units unknown) (unknown) (unknown) (no date) (unknown) (unknown) et?and?ligamen jolly?flav um?hypertrophy.??Moder ate?canal?stenosis.??M ild?bilateral? (units unknown) (unknown) (unknown) (no date) (unknown) (unknown) extremities.? Her pain is likely multifactorial with major components of (units unknown) (unknown) (unknown) (no date) (unknown) (unknown) foraminal?stenosis. (units unknown) (unknown) (unknown) (no date) (unknown) (unknown) further evalua tion of chronic low back pain with radiation down bilateral lower (units unknown) (unknown) (unknown) (no date) (unknown) (unknown) have occurred. If there are any questions, please contact the Medical Records (units unknown) (unknown) (unknown) (no date) (unknown) (unknown) hypertrophy?an d?epidur al?lipomatosis. (units unknown) (unknown) (unknown) (no date) (unknown) (unknown) in PT. [] (units unknown) (unknown) (unknown) (no date) (unknown) (unknown) instructed to report to the Emergency department, if these symptoms occur. (units unknown) (unknown) (unknown) (no date) (unknown) (unknown) instructed to stop if any side effects. [] (units unknown) (unknown) (unknown) (no date) (unknown) (unknown) intravenous dr ug use, sustained glucocorticoid use, osteoporosis, or a focal (units unknown) (unknown) (unknown) (no date) (unknown) (unknown) local anesthet ic. During that time patient able to participate in ADLs, had i (units unknown) (unknown) (unknown) (no date) (unknown) (unknown) may occur. Occ asional wrong-word or 'sound-alike' substitutions may have (units unknown) (unknown) (unknown) (no date) (unknown) (unknown) meds. [] (units unknown) (unknown) (unknown) (no date) (unknown) (unknown) morphine Aller gy (Mild, Verified 10/24/22 10:22) (units unknown) (unknown) (unknown) (no date) (unknown) (unknown) mproved sleep, improved mobility, etc. (units unknown) (unknown) (unknown) (no date) (unknown) (unknown) nd?L5?on?S1. (units unknown) (unknown) (unknown) (no date) (unknown) (unknown) negative, Hype ralgesia - negative (units unknown) (unknown) (unknown) (no date) (unknown) (unknown) neurological d eficit with progressive or disabling symptoms. (units unknown) (unknown) (unknown) (no date) (unknown) (unknown) ns.??Cholecyst ectomy?c lips. (units unknown) (unknown) (unknown) (no date) (unknown) (unknown) occurred due t o the inherent limitations of voice recognition software. Please (units unknown) (unknown) (unknown) (no date) (unknown) (unknown) of Spinal Cord Injur y) (units unknown) (unknown) (unknown) (no date) (unknown) (unknown) or immunosuppr essive therapy, previous or current cancer diagnosis, history of (units unknown) (unknown) (unknown) (no date) (unknown) (unknown) pain. [] (units unknown) (unknown) (unknown) (no date) (unknown) (unknown) pin?echo?throu gh?the?l umbar?spine.??In?cases ?with?scoliosis,?addit ional?coronal? (units unknown) (unknown) (unknown) (no date) (unknown) (unknown) racic?spine. (units unknown) (unknown) (unknown) (no date) (unknown) (unknown) radicular and axial pain.? She would likely benefit from an L5-S1 epidural (units unknown) (unknown) (unknown) (no date) (unknown) (unknown) raminal?stenos is?with? bilateral?L5?nerve?ghanshyam t?compression. (units unknown) (unknown) (unknown) (no date) (unknown) (unknown) read the note carefully and recognize, using context, where these substitutions (units unknown) (unknown) (unknown) (no date) (unknown) (unknown) record, includ ing relevant provider notes, laboratory work, and imaging. (units unknown) (unknown) (unknown) (no date) (unknown) (unknown) rmal?lumbar?lo rdosis.? ?3?mm?of?retrolisthesi s?of?L1?on?L2,?L2?on?L 3,?L3?on?L4,?a (units unknown) (unknown) (unknown) (no date) (unknown) (unknown) rrelation?with ?clinica l?symptoms?to?ascertai n?relevance?of?this?fi nding.? (units unknown) (unknown) (unknown) (no date) (unknown) (unknown) s.??Moderate?c anal?james nosis?at?L2-L3?and?L3- L4. (units unknown) (unknown) (unknown) (no date) (unknown) (unknown) scale and/or p ain interferes with ADLs. (units unknown) (unknown) (unknown) (no date) (unknown) (unknown) software. Alth ough every effort is made to edit content, managed security sales consultant errors (units unknown) (unknown) (unknown) (no date) (unknown) (unknown) stability intact. (u nits unknown) (unknown) (unknown) (no date) (unknown) (unknown) steroid inject ion.? If she continues to have low back pain after this injection, (units unknown) (unknown) (unknown) (no date) (unknown) (unknown) therapeutic in jections and surgery. The risks, consequences, alternatives and (units unknown) (unknown) (unknown) (no date) (unknown) (unknown) therapy. ?A re ferral was provided for the patient. [] (units unknown) (unknown) (unknown) (no date) (unknown) (unknown) ures.??Mild?re active?s ignal?throughout?the?e ndplates?of?the?lumbar ?and?lower?tho (units unknown) (unknown) (unknown) (no date) (unknown) (unknown) visit. (units unknown) (unknown) (unknown) (no date) (unknown) (unknown) walking intact . Tandem gait normal without evidence of ataxia. Lower quarter (units unknown) (unknown) (unknown) (no date) (unknown) (unknown) was performed. Since that time (units unknown) (unknown) (unknown) (no date) (unknown) (unknown) weak (units unknown) (unknown) (unknown) (no date) (unknown) (unknown) well as treatm ent options including medications, physical therapy/exercise, (units unknown) (unknown) (unknown) (no date) (unknown) (unknown) with future tr eatment planning. [] (units unknown) (unknown) (unknown) (no date) (unknown) (unknown) with short-ter m pain relief.' (units unknown) (unknown) (unknown) (no date) (unknown) (unknown) y?compression? fracture s.??No?suspicious?bony ?lesions.?? (units unknown) (unknown) Result panel 14 (unknown) (no date) (unknown) (unknown) (no value) (units unknown) (unknown) (unknown) (no date) (unknown) (unknown) (0=absent, 1=s light response, 2=brisk/normal, 3=very brisk, 4=clonus) (units unknown) (unknown) (unknown) (no date) (unknown) (unknown) (segments are from the International Standards for Neurological Classification (units unknown) (unknown) (unknown) (no date) (unknown) (unknown) - Activity: Co ntinue activity as tolerated. [] (units unknown) (unknown) (unknown) (no date) (unknown) (unknown) - Chiropractor , acupuncture[] (units unknown) (unknown) (unknown) (no date) (unknown) (unknown) - Continues cl inician directed home exercise program including exercises learned (units unknown) (unknown) (unknown) (no date) (unknown) (unknown) - Education: C auda equina and associated symptoms, including motor weakness, (units unknown) (unknown) (unknown) (no date) (unknown) (unknown) - FADIR: Negat eileen bilaterally (units unknown) (unknown) (unknown) (no date) (unknown) (unknown) - Follow-up: [] (uni ts unknown) (unknown) (unknown) (no date) (unknown) (unknown) - Hip ROM is: Within normal limits (units unknown) (unknown) (unknown) (no date) (unknown) (unknown) - I discussed risks, benefits and side effects. Additionally, patient was (units unknown) (unknown) (unknown) (no date) (unknown) (unknown) - Imaging: No new imaging indicated at this time. [] (units unknown) (unknown) (unknown) (no date) (unknown) (unknown) - Interventional/Surgica l procedures: None indicated at this time. [] (units unknown) (unknown) (unknown) (no date) (unknown) (unknown) - Lumbar facet loading: Positive bilaterally (units unknown) (unknown) (unknown) (no date) (unknown) (unknown) - Medications: No new prescription at this time. Patient will continue current (units unknown) (unknown) (unknown) (no date) (unknown) (unknown) - Medications: acetaminophen, NSAIDS, neuropathics, muscle relaxants [] (units unknown) (unknown) (unknown) (no date) (unknown) (unknown) - Physical The rapy: Completed 6 week course in the last 6 months OR Patient (units unknown) (unknown) (unknown) (no date) (unknown) (unknown) - Physical therapy/modalities/DME : Patient will likely benefit from physical (units unknown) (unknown) (unknown) (no date) (unknown) (unknown) - Prescription provided and uptitration instructions given if necessary. [] (units unknown) (unknown) (unknown) (no date) (unknown) (unknown) - Previous [] on [] provided []% relief of pain for the expected duration of the (units unknown) (unknown) (unknown) (no date) (unknown) (unknown) - Referrals: N one indicated at this time. [] (units unknown) (unknown) (unknown) (no date) (unknown) (unknown) - SIJ provocat ion testing: Negative bilaterally (units unknown) (unknown) (unknown) (no date) (unknown) (unknown) - Straight Leg Raise: Positive for leg pain on the left (units unknown) (unknown) (unknown) (no date) (unknown) (unknown) [id number] (units unknown) (unknown) (unknown) (no date) (unknown) (unknown) 11/18/22 (units unknown) (unknown) (unknown) (no date) (unknown) (unknown) 1.?Multilevel? degenera tive?disc?and?facet?di sease,?as?well?as?liga mentum?flavum? (units unknown) (unknown) (unknown) (no date) (unknown) (unknown) 1.Limited?rang e?of?mot ion?and?multilevel?lum bar?spine?spondylosis, ?most?notably? (units unknown) (unknown) (unknown) (no date) (unknown) (unknown) 15:37??? (units unknown) (unknown) (unknown) (no date) (unknown) (unknown) 2.?Multilevel? canal?st enoses,?worst?at?L4-L5 ?where?there?is?severe ?canal?stenosi (units unknown) (unknown) (unknown) (no date) (unknown) (unknown) ,?14:34. (uni ts unknown) (unknown) (unknown) (no date) (unknown) (unknown) 3.?Multilevel? foramina l?stenoses,?worst?at?L 5 (units unknown) (unknown) (unknown) (no date) (unknown) (unknown) 4.??Left?iliop soas?mus ronald?atrophy.?? (units unknown) (unknown) (unknown) (no date) (unknown) (unknown) 5-S1?level.??M oderate? facet?joint?arthropath y?L4-L5?and?L5-S1.??No ?vertebral?bod (units unknown) (unknown) (unknown) (no date) (unknown) (unknown) ? Inspection - ? No gross appendicular or axial deformities (units unknown) (unknown) (unknown) (no date) (unknown) (unknown) ? Palpation -n o tenderness to palpation (units unknown) (unknown) (unknown) (no date) (unknown) (unknown) ? ROM -lumbar extension limited due to pain (units unknown) (unknown) (unknown) (no date) (unknown) (unknown) ? Special tests (uni ts unknown) (unknown) (unknown) (no date) (unknown) (unknown) ?09/20/2022?at?15:01 (units unknown) (unknown) (unknown) (no date) (unknown) (unknown) ??5?lumbar?typ e?verteb ral?bodies?are?present ?by?plain?film.??There ?is?loss?of?no (units unknown) (unknown) (unknown) (no date) (unknown) (unknown) ??5?nonrib-viviana ring?bre tebrae?are?present.??3 ?mm?retrolisthesis?L2- L3,?L3-L4?and? (units unknown) (unknown) (unknown) (no date) (unknown) (unknown) ??5?views?of?t he?lumba r?spine?acquired,?incl uding?flexion?and?exte nsion?views.? (units unknown) (unknown) (unknown) (no date) (unknown) (unknown) ? Acetaminophen -denies (units unknown) (unknown) (unknown) (no date) (unknown) (unknown) ? Antidepressants -current (units unknown) (unknown) (unknown) (no date) (unknown) (unknown) ? Antiepileptics -current (units unknown) (unknown) (unknown) (no date) (unknown) (unknown) ? Mu scle Relaxants -cyclobenzaprine (units unknown) (unknown) (unknown) (no date) (unknown) (unknown) ? NS AIDs -current (units unknown) (unknown) (unknown) (no date) (unknown) (unknown) ? Op ioids -denies (units unknown) (unknown) (unknown) (no date) (unknown) (unknown) ? St eroids -denies (units unknown) (unknown) (unknown) (no date) (unknown) (unknown) ? To picals -denies (units unknown) (unknown) (unknown) (no date) (unknown) (unknown) ???Transcribed?by:?J C (units unknown) (unknown) (unknown) (no date) (unknown) (unknown) ??Conus?medull cade?ter minates?at?the?lower?L 1?level.??Visualized?c ord?demonstrat (units unknown) (unknown) (unknown) (no date) (unknown) (unknown) ??Marrow?is?of ?normal? overall?signal.??No?ac [place]?vertebral?body?com pression?fract (units unknown) (unknown) (unknown) (no date) (unknown) (unknown) ??Moderate?dis c?desicc ation.??Mild?disc?heig ht?loss?and?diffuse?di sc?bulge.??Mil (units unknown) (unknown) (unknown) (no date) (unknown) (unknown) ??Moderate?dis c?desicc ation.??Mild?disc?heig ht?loss?and?diffuse?di sc?bulge.??Mod (units unknown) (unknown) (unknown) (no date) (unknown) (unknown) ??Moderate?dis c?height ?loss?and?desiccation. ??Mild?diffuse?disc?bu lge.??Mild?fac (units unknown) (unknown) (unknown) (no date) (unknown) (unknown) ??Moderate?dis c?height ?loss?and?desiccation. ??No?significant?canal ,?or?foraminal (units unknown) (unknown) (unknown) (no date) (unknown) (unknown) ??No?paraverte bral?mas ses.??There?is?asymmet david?left?ileo?psoas?at rophy. (units unknown) (unknown) (unknown) (no date) (unknown) (unknown) ??Overlying?israel wel?gas? pattern?is?normal.??No ?suspicious?soft?tissu e?calcificatio (units unknown) (unknown) (unknown) (no date) (unknown) (unknown) ??[facility],?CR,?XR?LUMBAR?SPIN E?WITH?FLEXION?EXTENSI ON?5?VIEWS,?1/ (units unknown) (unknown) (unknown) (no date) (unknown) (unknown) ??There?is?sanchez ited?ran ge?of?motion,?with?pre served?normal?alignmen t.?? (units unknown) (unknown) (unknown) (no date) (unknown) (unknown) ?at?the?L (units unknown) (unknown) (unknown) (no date) (unknown) (unknown) ?canal?stenosi s.??Mode rate?bilateral?foramin al?stenosis. (units unknown) (unknown) (unknown) (no date) (unknown) (unknown) ?stenosis. (units unknown) (unknown) (unknown) (no date) (unknown) (unknown) Age/Sex: 67 / F Date of Service: (units unknown) (unknown) (unknown) (no date) (unknown) (unknown) Aggravating fa ctors include: standing, walking (units unknown) (unknown) (unknown) (no date) (unknown) (unknown) Alignment?and? [place]: (units unknown) (unknown) (unknown) (no date) (unknown) (unknown) All other syst ems reviewed and are unremarkable except as noted in HPI. (units unknown) (unknown) (unknown) (no date) (unknown) (unknown) Allergies (units unknown) (unknown) (unknown) (no date) (unknown) (unknown) Amitriptyline 10 mg (units unknown) (unknown) (unknown) (no date) (unknown) (unknown) HEIDY [place] [id number] (units unknown) (unknown) (unknown) (no date) (unknown) (unknown) Assessment + Plan (u nits unknown) (unknown) (unknown) (no date) (unknown) (unknown) Assessment: (units unknown) (unknown) (unknown) (no date) (unknown) (unknown) Attending Dr: Robin Morel MD (units unknown) (unknown) (unknown) (no date) (unknown) (unknown) Erika's Caitlin ngoing Downgoing (units unknown) (unknown) (unknown) (no date) (unknown) (unknown) Bilateral?hip? arthropl asties?incompletely?vi sualized. (units unknown) (unknown) (unknown) (no date) (unknown) (unknown) Bone?Marrow: (units unknown) (unknown) (unknown) (no date) (unknown) (unknown) Bones: (units unknown) (unknown) (unknown) (no date) (unknown) (unknown) Bowel and blad jonah: Chronic bladder incontinence (units unknown) (unknown) (unknown) (no date) (unknown) (unknown) Bowel and blad jonah: No loss of control (units unknown) (unknown) (unknown) (no date) (unknown) (unknown) COMPARISON: (units unknown) (unknown) (unknown) (no date) (unknown) (unknown) COMPARISON:??None. ( units unknown) (unknown) (unknown) (no date) (unknown) (unknown) Cardiovascular : No edema or cyanosis. 2+ peripheral pulses (units unknown) (unknown) (unknown) (no date) (unknown) (unknown) Chart review: (units unknown) (unknown) (unknown) (no date) (unknown) (unknown) Chief Complaint (uni ts unknown) (unknown) (unknown) (no date) (unknown) (unknown) Chief Complain t: Follow-up (units unknown) (unknown) (unknown) (no date) (unknown) (unknown) Clonus None None (un its unknown) (unknown) (unknown) (no date) (unknown) (unknown) Conservative management includes: (units unknown) (unknown) (unknown) (no date) (unknown) (unknown) Continue curre nt physical therapy. [] (units unknown) (unknown) (unknown) (no date) (unknown) (unknown) Continue home exercise program. [] (units unknown) (unknown) (unknown) (no date) (unknown) (unknown) Current VAS: [] ( units unknown) (unknown) (unknown) (no date) (unknown) (unknown) : 7 Acct:[id number] (units unknown) (unknown) (unknown) (no date) (unknown) (unknown) Denies recent trauma, fever or weight loss of unknown origin, immunocompromise (units unknown) (unknown) (unknown) (no date) (unknown) (unknown) Dept at . (units unknown) (unknown) (unknown) (no date) (unknown) (unknown) Details: (units unknown) (unknown) (unknown) (no date) (unknown) (unknown) Diclofenac 75 mg (un its unknown) (unknown) (unknown) (no date) (unknown) (unknown) Documented By: Robin Morel MD 11/14/22 7700 (units unknown) (unknown) (unknown) (no date) (unknown) (unknown) Draft (units unknown) (unknown) (unknown) (no date) (unknown) (unknown) Exam Narrative (unit s unknown) (unknown) (unknown) (no date) (unknown) (unknown) Exam Narrative: (uni ts unknown) (unknown) (unknown) (no date) (unknown) (unknown) Exam (units unknown) (unknown) (unknown) (no date) (unknown) (unknown) FINDINGS:?? (units unknown) (unknown) (unknown) (no date) (unknown) (unknown) Flexion/extension: ( units unknown) (unknown) (unknown) (no date) (unknown) (unknown) Gait/Station - Non-antalgic gait. Heel (L5 strength) and toe (S1 strength) (units unknown) (unknown) (unknown) (no date) (unknown) (unknown) General: Well-nourished, well-developed, female in no acute distress (units unknown) (unknown) (unknown) (no date) (unknown) (unknown) HPI (units unknown) (unknown) (unknown) (no date) (unknown) (unknown) IMPRESSION:?? (units unknown) (unknown) (unknown) (no date) (unknown) (unknown) INDICATIONS:?? lumbar?p ain (units unknown) (unknown) (unknown) (no date) (unknown) (unknown) INDICATIONS:??pain ( units unknown) (unknown) (unknown) (no date) (unknown) (unknown) Image?quality: ??Excell ent.?? (units unknown) (unknown) (unknown) (no date) (unknown) (unknown) Injections: (units unknown) (unknown) (unknown) (no date) (unknown) (unknown) Intake (units unknown) (unknown) (unknown) (no date) (unknown) (unknown) Interval History: (u nits unknown) (unknown) (unknown) (no date) (unknown) (unknown) Intervention:?Date:?Outcome:?? ? (units unknown) (unknown) (unknown) (no date) (unknown) (unknown) JUSTIFICATION OF MEDICAL NECESSITY (units unknown) (unknown) (unknown) (no date) (unknown) (unknown) L-spine/T-spin e/C-spin e MRI ordered to better delineate the anatomy and help (units unknown) (unknown) (unknown) (no date) (unknown) (unknown) L1-L2: (units unknown) (unknown) (unknown) (no date) (unknown) (unknown) L2 Hip Flexion 5/5 5/5? (units unknown) (unknown) (unknown) (no date) (unknown) (unknown) L2-L3: (units unknown) (unknown) (unknown) (no date) (unknown) (unknown) L3 Knee Extens ion 5/5 5/5 (units unknown) (unknown) (unknown) (no date) (unknown) (unknown) L3-L4: (units unknown) (unknown) (unknown) (no date) (unknown) (unknown) L4 Ankle Dorsi flexion 5/5 5/5 (units unknown) (unknown) (unknown) (no date) (unknown) (unknown) L4 Patella 1+ 1 (uni ts unknown) (unknown) (unknown) (no date) (unknown) (unknown) L4-L5: (units unknown) (unknown) (unknown) (no date) (unknown) (unknown) L5 Long Toe Ex tension 5/5 5/5 (units unknown) (unknown) (unknown) (no date) (unknown) (unknown) L5-S1 IL ANJEL? 10/24/2022? (units unknown) (unknown) (unknown) (no date) (unknown) (unknown) L5-S1.??Multil evel?dis c?height?loss?with?end plate?sclerosis?and?sp urring,?severe (units unknown) (unknown) (unknown) (no date) (unknown) (unknown) L5-S1: (units unknown) (unknown) (unknown) (no date) (unknown) (unknown) Loc: PAIN (units unknown) (unknown) (unknown) (no date) (unknown) (unknown) Low back pain (units unknown) (unknown) (unknown) (no date) (unknown) (unknown) Lumbar radiculopathy (units unknown) (unknown) (unknown) (no date) (unknown) (unknown) Lyrica 150 mg (units unknown) (unknown) (unknown) (no date) (unknown) (unknown) MSK: System re viewed and no additional complaints, except as documented. (units unknown) (unknown) (unknown) (no date) (unknown) (unknown) Medical Histor y (Updated 10/16/22 @ 16:44 by Robin Morel MD) (units unknown) (unknown) (unknown) (no date) (unknown) (unknown) Medications: (units unknown) (unknown) (unknown) (no date) (unknown) (unknown) Motor (units unknown) (unknown) (unknown) (no date) (unknown) (unknown) Musculoskeletal: (un its unknown) (unknown) (unknown) (no date) (unknown) (unknown) Neuro: System reviewed and no additional complaints, except as documented. (units unknown) (unknown) (unknown) (no date) (unknown) (unknown) Neurologic: (units unknown) (unknown) (unknown) (no date) (unknown) (unknown) Noncontrast?sa gittal?T 1?spin?echo?and?T2?fas t?echo,?sagittal?STIR, ?and?T2?fast?s (units unknown) (unknown) (unknown) (no date) (unknown) (unknown) Not indicated at this time. [] (units unknown) (unknown) (unknown) (no date) (unknown) (unknown) Numbness/Tingl ing: b/l posterior thighs (units unknown) (unknown) (unknown) (no date) (unknown) (unknown) Objective Data (unit s unknown) (unknown) (unknown) (no date) (unknown) (unknown) Objective Data: (uni ts unknown) (unknown) (unknown) (no date) (unknown) (unknown) Onset/Context of haritha n: (units unknown) (unknown) (unknown) (no date) (unknown) (unknown) Onset: insidious (un its unknown) (unknown) (unknown) (no date) (unknown) (unknown) Other: denies (units unknown) (unknown) (unknown) (no date) (unknown) (unknown) PFSH (units unknown) (unknown) (unknown) (no date) (unknown) (unknown) PROCEDURE:??MR ?LUMBAR? SPINE?WITHOUT?CONTRAST (units unknown) (unknown) (unknown) (no date) (unknown) (unknown) PROCEDURE:??XR ?LUMBAR? SPINE?WITH?FLEXION?EXT ENSION?5?VIEWS (units unknown) (unknown) (unknown) (no date) (unknown) (unknown) PT: Amilcarjocelynn He alth 6 visits in the last 6 months (units unknown) (unknown) (unknown) (no date) (unknown) (unknown) Pain Visit (units unknown) (unknown) (unknown) (no date) (unknown) (unknown) Pain location/Radiation: low back pain radiating to b/l posterior thighs (units unknown) (unknown) (unknown) (no date) (unknown) (unknown) Pain ratin /10 today, 9/10 at worst (units unknown) (unknown) (unknown) (no date) (unknown) (unknown) Paraspinous?So ft?Tissu es: (units unknown) (unknown) (unknown) (no date) (unknown) (unknown) Past medical, surgical, social, and family history is unchanged from prior (units unknown) (unknown) (unknown) (no date) (unknown) (unknown) Patient was erickson chi seen here on 10/24/2022 at which time L5-S1 interlaminar ANJEL (units unknown) (unknown) (unknown) (no date) (unknown) (unknown) Patient will r eturn for []. Risks and benefits were discussed. (units unknown) (unknown) (unknown) (no date) (unknown) (unknown) Patient's pain has been present for >6 weeks and is an average of >6/10 on 0-10 (units unknown) (unknown) (unknown) (no date) (unknown) (unknown) Patient: Judi Aguilar MR#: [id number] (units unknown) (unknown) (unknown) (no date) (unknown) (unknown) [place] Clarence martel (Verified 10/16/22 13:06) (units unknown) (unknown) (unknown) (no date) (unknown) (unknown) Pertinent medi cations include: (units unknown) (unknown) (unknown) (no date) (unknown) (unknown) Plan (units unknown) (unknown) (unknown) (no date) (unknown) (unknown) Plan/Recommendations : (units unknown) (unknown) (unknown) (no date) (unknown) (unknown) Prescriptions Written: [] (units unknown) (unknown) (unknown) (no date) (unknown) (unknown) Previous Visit Assessment: Lona is a 67-year-old female presenting for (units unknown) (unknown) (unknown) (no date) (unknown) (unknown) Previous pain treatments included: (units unknown) (unknown) (unknown) (no date) (unknown) (unknown) Psych: Appropr iate affect, answers questions appropriately (units unknown) (unknown) (unknown) (no date) (unknown) (unknown) Quality and ti alirio of pain: Back - sharp or dull, intermittent; Legs - hurt and (units unknown) (unknown) (unknown) (no date) (unknown) (unknown) LUISA?on?07/24?at ?14:50?Approved?by: ?Leonel?Luisa,?Clayton?on ?07/24/2022?at? (units unknown) (unknown) (unknown) (no date) (unknown) (unknown) ROS Narrative (units unknown) (unknown) (unknown) (no date) (unknown) (unknown) ROS Narrative: (unit s unknown) (unknown) (unknown) (no date) (unknown) (unknown) ROS (units unknown) (unknown) (unknown) (no date) (unknown) (unknown) Rash (units unknown) (unknown) (unknown) (no date) (unknown) (unknown) Reason For Visit (un its unknown) (unknown) (unknown) (no date) (unknown) (unknown) Red flag symptoms: ( units unknown) (unknown) (unknown) (no date) (unknown) (unknown) Reflex Right Left (u nits unknown) (unknown) (unknown) (no date) (unknown) (unknown) Reflexes: (units unknown) (unknown) (unknown) (no date) (unknown) (unknown) Relieving fact ors include: heat (units unknown) (unknown) (unknown) (no date) (unknown) (unknown) Respiratory: Non-labored breathing pattern on RA. No respiratory distress (units unknown) (unknown) (unknown) (no date) (unknown) (unknown) Reviewed?by:?J eff?Chof fel?RRA?Interpreted:?J ason?Luisa??on?07/24?at?14:49 (units unknown) (unknown) (unknown) (no date) (unknown) (unknown) Reviewed?by:?Johnathon lutz?Kyle,?M.D.?on?09/20/2022 ?at?14:57???Transcribe d?by:?CANNON?on (units unknown) (unknown) (unknown) (no date) (unknown) (unknown) S1 Achilles 1+ 1 (un its unknown) (unknown) (unknown) (no date) (unknown) (unknown) S1 Ankle Plantarflexion 5/5 5/5 (units unknown) (unknown) (unknown) (no date) (unknown) (unknown) S1?where?there ?is?asso ciated?intraforaminal? nerve?root?compression .?Recommend?co (units unknown) (unknown) (unknown) (no date) (unknown) (unknown) Saddle anesthe kelby: denies (units unknown) (unknown) (unknown) (no date) (unknown) (unknown) Segment Action Right Left (units unknown) (unknown) (unknown) (no date) (unknown) (unknown) Segment Reflex Right Left (units unknown) (unknown) (unknown) (no date) (unknown) (unknown) Sensory -? Int act to light touch of bilateral lower extremities. Allodynia (units unknown) (unknown) (unknown) (no date) (unknown) (unknown) Signed By: (units unknown) (unknown) (unknown) (no date) (unknown) (unknown) Skin: No appre ciable rashes or skin breakdown (units unknown) (unknown) (unknown) (no date) (unknown) (unknown) Smoking Status : Never smoker (units unknown) (unknown) (unknown) (no date) (unknown) (unknown) Soft?tissues: (units unknown) (unknown) (unknown) (no date) (unknown) (unknown) Spinal?Cord: (units unknown) (unknown) (unknown) (no date) (unknown) (unknown) Standing: incr eased LBP (units unknown) (unknown) (unknown) (no date) (unknown) (unknown) Surgery: denies (uni ts unknown) (unknown) (unknown) (no date) (unknown) (unknown) T12-L1: (units unknown) (unknown) (unknown) (no date) (unknown) (unknown) T2?fast?spin?e cho?may? be?performed.?? (units unknown) (unknown) (unknown) (no date) (unknown) (unknown) TECHNIQUE: (units unknown) (unknown) (unknown) (no date) (unknown) (unknown) TECHNIQUE:?? (units unknown) (unknown) (unknown) (no date) (unknown) (unknown) [facility] (units unknown) (unknown) (unknown) (no date) (unknown) (unknown) This note may have been all or partially generated using voice recognition (units unknown) (unknown) (unknown) (no date) (unknown) (unknown) Tobacco + Subs tance Use (units unknown) (unknown) (unknown) (no date) (unknown) (unknown) Tobacco Status (unit s unknown) (unknown) (unknown) (no date) (unknown) (unknown) Today I have r eviewed available medical information in the patient's medical (units unknown) (unknown) (unknown) (no date) (unknown) (unknown) Tylenol (units unknown) (unknown) (unknown) (no date) (unknown) (unknown) Upper Motor Ne uron Signs: (units unknown) (unknown) (unknown) (no date) (unknown) (unknown) Visit Reasons: FOLLOW UP ANJEL (units unknown) (unknown) (unknown) (no date) (unknown) (unknown) Walking: increased L BP (units unknown) (unknown) (unknown) (no date) (unknown) (unknown) [place] Prescription Monitoring Program ([employer]) was reviewed. (units unknown) (unknown) (unknown) (no date) (unknown) (unknown) We reviewed et iology, predisposing factor(s), natural course, imaging results as (units unknown) (unknown) (unknown) (no date) (unknown) (unknown) Weakness: denies (un its unknown) (unknown) (unknown) (no date) (unknown) (unknown) at?the?L5-S1?level. (units unknown) (unknown) (unknown) (no date) (unknown) (unknown) benefits of va rious treatment options were discussed with the patient in great (units unknown) (unknown) (unknown) (no date) (unknown) (unknown) bowel/bladder dysfunction, and perineal numbness were discussed. The patient was (units unknown) (unknown) (unknown) (no date) (unknown) (unknown) cannot tolerat e physical therapy at the current time due to the intensity of the (units unknown) (unknown) (unknown) (no date) (unknown) (unknown) consider media l branch blocks and RFA.? Medrol Dosepak was also ordered to help (units unknown) (unknown) (unknown) (no date) (unknown) (unknown) d?facet?and?li gamentum ?flavum?hypertrophy.?? Mild?epidural?lipomato sis.??Moderate (units unknown) (unknown) (unknown) (no date) (unknown) (unknown) detail. (units unknown) (unknown) (unknown) (no date) (unknown) (unknown) enosis.??Mild? bilatera l?foraminal?stenosis. (units unknown) (unknown) (unknown) (no date) (unknown) (unknown) erate?facet?an d?ligame ntum?flavum?hypertroph y.??Severe?canal?steno sis.??Mod (units unknown) (unknown) (unknown) (no date) (unknown) (unknown) erate?subartic ular?for aminal?stenosis?bilate rally. (units unknown) (unknown) (unknown) (no date) (unknown) (unknown) es?normal?sign al?and?s ize.?? (units unknown) (unknown) (unknown) (no date) (unknown) (unknown) et?and?ligamen jolly?flav um?hypertrophy.??Mild? canal?stenosis.??Sever e?bilateral?fo (units unknown) (unknown) (unknown) (no date) (unknown) (unknown) et?and?ligamen jolly?flav um?hypertrophy.??Mild? epidural?lipomatosis.? ?Mild?canal?st (units unknown) (unknown) (unknown) (no date) (unknown) (unknown) et?and?ligamen jolly?flav um?hypertrophy.??Moder ate?canal?stenosis.??M ild?bilateral? (units unknown) (unknown) (unknown) (no date) (unknown) (unknown) extremities.? Her pain is likely multifactorial with major components of (units unknown) (unknown) (unknown) (no date) (unknown) (unknown) foraminal?stenosis. (units unknown) (unknown) (unknown) (no date) (unknown) (unknown) further evalua tion of chronic low back pain with radiation down bilateral lower (units unknown) (unknown) (unknown) (no date) (unknown) (unknown) have occurred. If there are any questions, please contact the Medical Records (units unknown) (unknown) (unknown) (no date) (unknown) (unknown) hypertrophy?an d?epidur al?lipomatosis. (units unknown) (unknown) (unknown) (no date) (unknown) (unknown) in PT. [] (units unknown) (unknown) (unknown) (no date) (unknown) (unknown) instructed to report to the Emergency department, if these symptoms occur. (units unknown) (unknown) (unknown) (no date) (unknown) (unknown) instructed to stop if any side effects. [] (units unknown) (unknown) (unknown) (no date) (unknown) (unknown) intravenous dr ug use, sustained glucocorticoid use, osteoporosis, or a focal (units unknown) (unknown) (unknown) (no date) (unknown) (unknown) local anesthet ic. During that time patient able to participate in ADLs, had i (units unknown) (unknown) (unknown) (no date) (unknown) (unknown) may occur. Occ asional wrong-word or 'sound-alike' substitutions may have (units unknown) (unknown) (unknown) (no date) (unknown) (unknown) meds. [] (units unknown) (unknown) (unknown) (no date) (unknown) (unknown) morphine Aller gy (Mild, Verified 10/24/22 10:22) (units unknown) (unknown) (unknown) (no date) (unknown) (unknown) mproved sleep, improved mobility, etc. (units unknown) (unknown) (unknown) (no date) (unknown) (unknown) nd?L5?on?S1. (units unknown) (unknown) (unknown) (no date) (unknown) (unknown) negative, Hype ralgesia - negative (units unknown) (unknown) (unknown) (no date) (unknown) (unknown) neurological d eficit with progressive or disabling symptoms. (units unknown) (unknown) (unknown) (no date) (unknown) (unknown) ns.??Cholecyst ectomy?c lips. (units unknown) (unknown) (unknown) (no date) (unknown) (unknown) occurred due t o the inherent limitations of voice recognition software. Please (units unknown) (unknown) (unknown) (no date) (unknown) (unknown) of Spinal Cord Injur y) (units unknown) (unknown) (unknown) (no date) (unknown) (unknown) or immunosuppr essive therapy, previous or current cancer diagnosis, history of (units unknown) (unknown) (unknown) (no date) (unknown) (unknown) pain. [] (units unknown) (unknown) (unknown) (no date) (unknown) (unknown) pin?echo?throu gh?the?l umbar?spine.??In?cases ?with?scoliosis,?addit ional?coronal? (units unknown) (unknown) (unknown) (no date) (unknown) (unknown) racic?spine. (units unknown) (unknown) (unknown) (no date) (unknown) (unknown) radicular and axial pain.? She would likely benefit from an L5-S1 epidural (units unknown) (unknown) (unknown) (no date) (unknown) (unknown) raminal?stenos is?with? bilateral?L5?nerve?ghanshyam t?compression. (units unknown) (unknown) (unknown) (no date) (unknown) (unknown) read the note carefully and recognize, using context, where these substitutions (units unknown) (unknown) (unknown) (no date) (unknown) (unknown) record, includ ing relevant provider notes, laboratory work, and imaging. (units unknown) (unknown) (unknown) (no date) (unknown) (unknown) rmal?lumbar?lo rdosis.? ?3?mm?of?retrolisthesi s?of?L1?on?L2,?L2?on?L 3,?L3?on?L4,?a (units unknown) (unknown) (unknown) (no date) (unknown) (unknown) rrelation?with ?clinica l?symptoms?to?ascertai n?relevance?of?this?fi nding.? (units unknown) (unknown) (unknown) (no date) (unknown) (unknown) s.??Moderate?c anal?james nosis?at?L2-L3?and?L3- L4. (units unknown) (unknown) (unknown) (no date) (unknown) (unknown) scale and/or p ain interferes with ADLs. (units unknown) (unknown) (unknown) (no date) (unknown) (unknown) software. Alth ough every effort is made to edit content, managed security sales consultant errors (units unknown) (unknown) (unknown) (no date) (unknown) (unknown) stability intact. (u nits unknown) (unknown) (unknown) (no date) (unknown) (unknown) steroid inject ion.? If she continues to have low back pain after this injection, (units unknown) (unknown) (unknown) (no date) (unknown) (unknown) therapeutic in jections and surgery. The risks, consequences, alternatives and (units unknown) (unknown) (unknown) (no date) (unknown) (unknown) therapy. ?A re ferral was provided for the patient. [] (units unknown) (unknown) (unknown) (no date) (unknown) (unknown) ures.??Mild?re active?s ignal?throughout?the?e ndplates?of?the?lumbar ?and?lower?tho (units unknown) (unknown) (unknown) (no date) (unknown) (unknown) visit. (units unknown) (unknown) (unknown) (no date) (unknown) (unknown) walking intact . Tandem gait normal without evidence of ataxia. Lower quarter (units unknown) (unknown) (unknown) (no date) (unknown) (unknown) was performed. Since that time (units unknown) (unknown) (unknown) (no date) (unknown) (unknown) weak (units unknown) (unknown) (unknown) (no date) (unknown) (unknown) well as treatm ent options including medications, physical therapy/exercise, (units unknown) (unknown) (unknown) (no date) (unknown) (unknown) with future tr eatment planning. [] (units unknown) (unknown) (unknown) (no date) (unknown) (unknown) with short-ter m pain relief.' (units unknown) (unknown) (unknown) (no date) (unknown) (unknown) y?compression? fracture s.??No?suspicious?bony ?lesions.?? (units unknown) (unknown) Result panel 15 (unknown) (no date) (unknown) (unknown) (no value) (units unknown) (unknown) (unknown) (no date) (unknown) (unknown) (0=absent, 1=s light response, 2=brisk/normal, 3=very brisk, 4=clonus) (units unknown) (unknown) (unknown) (no date) (unknown) (unknown) (segments are from the International Standards for Neurological Classification (units unknown) (unknown) (unknown) (no date) (unknown) (unknown) - Activity: Co ntinue activity as tolerated. [] (units unknown) (unknown) (unknown) (no date) (unknown) (unknown) - Chiropractor , acupuncture[] (units unknown) (unknown) (unknown) (no date) (unknown) (unknown) - Continues cl inician directed home exercise program including exercises learned (units unknown) (unknown) (unknown) (no date) (unknown) (unknown) - Education: C auda equina and associated symptoms, including motor weakness, (units unknown) (unknown) (unknown) (no date) (unknown) (unknown) - FADIR: Negat eileen bilaterally (units unknown) (unknown) (unknown) (no date) (unknown) (unknown) - Follow-up: [] (uni ts unknown) (unknown) (unknown) (no date) (unknown) (unknown) - Hip ROM is: Within normal limits (units unknown) (unknown) (unknown) (no date) (unknown) (unknown) - I discussed risks, benefits and side effects. Additionally, patient was (units unknown) (unknown) (unknown) (no date) (unknown) (unknown) - Imaging: No new imaging indicated at this time. [] (units unknown) (unknown) (unknown) (no date) (unknown) (unknown) - Interventional/Surgica l procedures: None indicated at this time. [] (units unknown) (unknown) (unknown) (no date) (unknown) (unknown) - Lumbar facet loading: Positive bilaterally (units unknown) (unknown) (unknown) (no date) (unknown) (unknown) - Medications: No new prescription at this time. Patient will continue current (units unknown) (unknown) (unknown) (no date) (unknown) (unknown) - Medications: acetaminophen, NSAIDS, neuropathics, muscle relaxants [] (units unknown) (unknown) (unknown) (no date) (unknown) (unknown) - Physical The rapy: Completed 6 week course in the last 6 months OR Patient (units unknown) (unknown) (unknown) (no date) (unknown) (unknown) - Physical therapy/modalities/DME : Patient will likely benefit from physical (units unknown) (unknown) (unknown) (no date) (unknown) (unknown) - Prescription provided and uptitration instructions given if necessary. [] (units unknown) (unknown) (unknown) (no date) (unknown) (unknown) - Previous [] on [] provided []% relief of pain for the expected duration of the (units unknown) (unknown) (unknown) (no date) (unknown) (unknown) - Referrals: N one indicated at this time. [] (units unknown) (unknown) (unknown) (no date) (unknown) (unknown) - SIJ provocat ion testing: Negative bilaterally (units unknown) (unknown) (unknown) (no date) (unknown) (unknown) - Straight Leg Raise: Positive for leg pain on the left (units unknown) (unknown) (unknown) (no date) (unknown) (unknown) .??No?suspicio us?bony? lesions.?? (units unknown) (unknown) (unknown) (no date) (unknown) (unknown) [id number] (units unknown) (unknown) (unknown) (no date) (unknown) (unknown) 10/16/22 [Hist ory Confirmed 11/18/22] (units unknown) (unknown) (unknown) (no date) (unknown) (unknown) 11/18/22 (units unknown) (unknown) (unknown) (no date) (unknown) (unknown) 11/18/22] (units unknown) (unknown) (unknown) (no date) (unknown) (unknown) 1.?Multilevel? degenera tive?disc?and?facet?di sease,?as?well?as?liga mentum?flavum? (units unknown) (unknown) (unknown) (no date) (unknown) (unknown) 1.Limited?rang e?of?mot ion?and?multilevel?lum bar?spine?spondylosis, ?most?notably? (units unknown) (unknown) (unknown) (no date) (unknown) (unknown) 15:37??? (units unknown) (unknown) (unknown) (no date) (unknown) (unknown) 2.?Multilevel? canal?st enoses,?worst?at?L4-L5 ?where?there?is?severe ?canal?stenosi (units unknown) (unknown) (unknown) (no date) (unknown) (unknown) ,?14:34. (uni ts unknown) (unknown) (unknown) (no date) (unknown) (unknown) 3.?Multilevel? foramina l?stenoses,?worst?at?L 5-S1?where?there?is?as sociated?intra (units unknown) (unknown) (unknown) (no date) (unknown) (unknown) 4.??Left?iliop soas?mus ronald?atrophy.?? (units unknown) (unknown) (unknown) (no date) (unknown) (unknown) ? Inspection - ? No gross appendicular or axial deformities (units unknown) (unknown) (unknown) (no date) (unknown) (unknown) ? Palpation -n o tenderness to palpation (units unknown) (unknown) (unknown) (no date) (unknown) (unknown) ? ROM -lumbar extension limited due to pain (units unknown) (unknown) (unknown) (no date) (unknown) (unknown) ? Special tests (uni ts unknown) (unknown) (unknown) (no date) (unknown) (unknown) ?09/20/2022?at?15:01 (units unknown) (unknown) (unknown) (no date) (unknown) (unknown) ??5?lumbar?typ e?verteb ral?bodies?are?present ?by?plain?film.??There ?is?loss?of?no (units unknown) (unknown) (unknown) (no date) (unknown) (unknown) ??5?nonrib-viviana ring?bre tebrae?are?present.??3 ?mm?retrolisthesis?L2- L3,?L3-L4?and? (units unknown) (unknown) (unknown) (no date) (unknown) (unknown) ??5?views?of?t he?lumba r?spine?acquired,?incl uding?flexion?and?exte nsion?views.? (units unknown) (unknown) (unknown) (no date) (unknown) (unknown) ? Acetaminophen -denies (units unknown) (unknown) (unknown) (no date) (unknown) (unknown) ? Antidepressants -current (units unknown) (unknown) (unknown) (no date) (unknown) (unknown) ? Antiepileptics -current (units unknown) (unknown) (unknown) (no date) (unknown) (unknown) ? Mu scle Relaxants -cyclobenzaprine (units unknown) (unknown) (unknown) (no date) (unknown) (unknown) ? NS AIDs -current (units unknown) (unknown) (unknown) (no date) (unknown) (unknown) ? Op ioids -denies (units unknown) (unknown) (unknown) (no date) (unknown) (unknown) ? St eroids -denies (units unknown) (unknown) (unknown) (no date) (unknown) (unknown) ? To picals -denies (units unknown) (unknown) (unknown) (no date) (unknown) (unknown) ???Transcribed?by:?J C (units unknown) (unknown) (unknown) (no date) (unknown) (unknown) ??Conus?medull cade?ter minates?at?the?lower?L 1?level.??Visualized?c ord?demonstrat (units unknown) (unknown) (unknown) (no date) (unknown) (unknown) ??Marrow?is?of ?normal? overall?signal.??No?ac [place]?vertebral?body?com pression?fract (units unknown) (unknown) (unknown) (no date) (unknown) (unknown) ??Moderate?dis c?desicc ation.??Mild?disc?heig ht?loss?and?diffuse?di sc?bulge.??Mil (units unknown) (unknown) (unknown) (no date) (unknown) (unknown) ??Moderate?dis c?desicc ation.??Mild?disc?heig ht?loss?and?diffuse?di sc?bulge.??Mod (units unknown) (unknown) (unknown) (no date) (unknown) (unknown) ??Moderate?dis c?height ?loss?and?desiccation. ??Mild?diffuse?disc?bu lge.??Mild?fac (units unknown) (unknown) (unknown) (no date) (unknown) (unknown) ??Moderate?dis c?height ?loss?and?desiccation. ??No?significant?canal ,?or?foraminal (units unknown) (unknown) (unknown) (no date) (unknown) (unknown) ??No?paraverte bral?mas ses.??There?is?asymmet david?left?ileo?psoas?at rophy. (units unknown) (unknown) (unknown) (no date) (unknown) (unknown) ??Overlying?israel wel?gas? pattern?is?normal.??No ?suspicious?soft?tissu e?calcificatio (units unknown) (unknown) (unknown) (no date) (unknown) (unknown) ??[facility],?CR,?XR?LUMBAR?SPIN E?WITH?FLEXION?EXTENSI ON?5?VIEWS,?1/ (units unknown) (unknown) (unknown) (no date) (unknown) (unknown) ??There?is?sanchez ited?ran ge?of?motion,?with?pre served?normal?alignmen t.?? (units unknown) (unknown) (unknown) (no date) (unknown) (unknown) ?at?the?L5-S1? level.?? Moderate?f (units unknown) (unknown) (unknown) (no date) (unknown) (unknown) ?canal?stenosi s.??Mode rate?bilateral?foramin al?stenosis. (units unknown) (unknown) (unknown) (no date) (unknown) (unknown) ?stenosis. (units unknown) (unknown) (unknown) (no date) (unknown) (unknown) ?subarticular? foramina l?stenosis?bilaterally . (units unknown) (unknown) (unknown) (no date) (unknown) (unknown) Accompanied by : Self / Same As Patient (units unknown) (unknown) (unknown) (no date) (unknown) (unknown) Age/Sex: 67 / F Date of Service: (units unknown) (unknown) (unknown) (no date) (unknown) (unknown) Aggravating fa ctors include: standing, walking (units unknown) (unknown) (unknown) (no date) (unknown) (unknown) Alignment?and? [place]: (units unknown) (unknown) (unknown) (no date) (unknown) (unknown) All other syst ems reviewed and are unremarkable except as noted in HPI. (units unknown) (unknown) (unknown) (no date) (unknown) (unknown) Allergies (units unknown) (unknown) (unknown) (no date) (unknown) (unknown) Amitriptyline 10 mg (units unknown) (unknown) (unknown) (no date) (unknown) (unknown) HEIDY [place]ft [id number] (units unknown) (unknown) (unknown) (no date) (unknown) (unknown) Assessment + Plan (u nits unknown) (unknown) (unknown) (no date) (unknown) (unknown) Assessment: (units unknown) (unknown) (unknown) (no date) (unknown) (unknown) Attending Dr: Robin Morel MD (units unknown) (unknown) (unknown) (no date) (unknown) (unknown) Erika's Caitlin ngoing Downgoing (units unknown) (unknown) (unknown) (no date) (unknown) (unknown) Bilateral?hip? arthropl asties?incompletely?vi sualized. (units unknown) (unknown) (unknown) (no date) (unknown) (unknown) Bone?Marrow: (units unknown) (unknown) (unknown) (no date) (unknown) (unknown) Bones: (units unknown) (unknown) (unknown) (no date) (unknown) (unknown) Bowel and blad jonah: Chronic bladder incontinence (units unknown) (unknown) (unknown) (no date) (unknown) (unknown) Bowel and blad jonah: No loss of control (units unknown) (unknown) (unknown) (no date) (unknown) (unknown) COMPARISON: (units unknown) (unknown) (unknown) (no date) (unknown) (unknown) COMPARISON:??None. ( units unknown) (unknown) (unknown) (no date) (unknown) (unknown) Cardiovascular : No edema or cyanosis. 2+ peripheral pulses (units unknown) (unknown) (unknown) (no date) (unknown) (unknown) Chart review: (units unknown) (unknown) (unknown) (no date) (unknown) (unknown) Chief Complaint (uni ts unknown) (unknown) (unknown) (no date) (unknown) (unknown) Chief Complain t: Follow-up (units unknown) (unknown) (unknown) (no date) (unknown) (unknown) Clonus None None (un its unknown) (unknown) (unknown) (no date) (unknown) (unknown) Confirmed 11/18/22] (units unknown) (unknown) (unknown) (no date) (unknown) (unknown) Conservative management includes: (units unknown) (unknown) (unknown) (no date) (unknown) (unknown) Continue curre nt physical therapy. [] (units unknown) (unknown) (unknown) (no date) (unknown) (unknown) Continue home exercise program. [] (units unknown) (unknown) (unknown) (no date) (unknown) (unknown) Current VAS: [ ( units unknown) (unknown) (unknown) (no date) (unknown) (unknown) : 7 Acct:[id number] (units unknown) (unknown) (unknown) (no date) (unknown) (unknown) Denies recent trauma, fever or weight loss of unknown origin, immunocompromise (units unknown) (unknown) (unknown) (no date) (unknown) (unknown) Dept at . (units unknown) (unknown) (unknown) (no date) (unknown) (unknown) Details: (units unknown) (unknown) (unknown) (no date) (unknown) (unknown) Diclofenac 75 mg (un its unknown) (unknown) (unknown) (no date) (unknown) (unknown) Documented By: Robin Morel MD 11/14/22 [id number] (units unknown) (unknown) (unknown) (no date) (unknown) (unknown) Draft (units unknown) (unknown) (unknown) (no date) (unknown) (unknown) Exam Narrative (unit s unknown) (unknown) (unknown) (no date) (unknown) (unknown) Exam Narrative: (uni ts unknown) (unknown) (unknown) (no date) (unknown) (unknown) Exam (units unknown) (unknown) (unknown) (no date) (unknown) (unknown) FINDINGS:?? (units unknown) (unknown) (unknown) (no date) (unknown) (unknown) FOLLOW UP ANJEL (units unknown) (unknown) (unknown) (no date) (unknown) (unknown) Flexion/extension: ( units unknown) (unknown) (unknown) (no date) (unknown) (unknown) Gait/Station - Non-antalgic gait. Heel (L5 strength) and toe (S1 strength) (units unknown) (unknown) (unknown) (no date) (unknown) (unknown) General: Well-nourished, well-developed, female in no acute distress (units unknown) (unknown) (unknown) (no date) (unknown) (unknown) HPI (units unknown) (unknown) (unknown) (no date) (unknown) (unknown) IMPRESSION:?? (units unknown) (unknown) (unknown) (no date) (unknown) (unknown) INDICATIONS:?? lumbar?p ain (units unknown) (unknown) (unknown) (no date) (unknown) (unknown) INDICATIONS:??pain ( units unknown) (unknown) (unknown) (no date) (unknown) (unknown) Image?quality: ??Excell ent.?? (units unknown) (unknown) (unknown) (no date) (unknown) (unknown) Injections: (units unknown) (unknown) (unknown) (no date) (unknown) (unknown) Instructions P O PER PKG DIR radiculopathy #21 ea 10/16/22 [Rx Confirmed (units unknown) (unknown) (unknown) (no date) (unknown) (unknown) Intake Clinical Staf f (units unknown) (unknown) (unknown) (no date) (unknown) (unknown) Intake Note: (units unknown) (unknown) (unknown) (no date) (unknown) (unknown) Intake perform ed by: Gisselle Gastelum (units unknown) (unknown) (unknown) (no date) (unknown) (unknown) Intake (units unknown) (unknown) (unknown) (no date) (unknown) (unknown) Interval History: (u nits unknown) (unknown) (unknown) (no date) (unknown) (unknown) Intervention:?Date:?Outcome:?? ? (units unknown) (unknown) (unknown) (no date) (unknown) (unknown) JUSTIFICATION OF MEDICAL NECESSITY (units unknown) (unknown) (unknown) (no date) (unknown) (unknown) L-spine/T-spin e/C-spin e MRI ordered to better delineate the anatomy and help (units unknown) (unknown) (unknown) (no date) (unknown) (unknown) L1-L2: (units unknown) (unknown) (unknown) (no date) (unknown) (unknown) L2 Hip Flexion 5/5 5/5? (units unknown) (unknown) (unknown) (no date) (unknown) (unknown) L2-L3: (units unknown) (unknown) (unknown) (no date) (unknown) (unknown) L3 Knee Extens ion 5/5 5/5 (units unknown) (unknown) (unknown) (no date) (unknown) (unknown) L3-L4: (units unknown) (unknown) (unknown) (no date) (unknown) (unknown) L4 Ankle Dorsi flexion 5/5 5/5 (units unknown) (unknown) (unknown) (no date) (unknown) (unknown) L4 Patella 1+ 1 (uni ts unknown) (unknown) (unknown) (no date) (unknown) (unknown) L4-L5: (units unknown) (unknown) (unknown) (no date) (unknown) (unknown) L5 Long Toe Ex tension 5/5 5/5 (units unknown) (unknown) (unknown) (no date) (unknown) (unknown) L5-S1 IL ANJEL? 10/24/2022? (units unknown) (unknown) (unknown) (no date) (unknown) (unknown) L5-S1.??Multil evel?dis c?height?loss?with?end plate?sclerosis?and?sp urring,?severe (units unknown) (unknown) (unknown) (no date) (unknown) (unknown) L5-S1: (units unknown) (unknown) (unknown) (no date) (unknown) (unknown) Loc: PAIN (units unknown) (unknown) (unknown) (no date) (unknown) (unknown) Low back pain (units unknown) (unknown) (unknown) (no date) (unknown) (unknown) Lumbar radiculopathy (units unknown) (unknown) (unknown) (no date) (unknown) (unknown) Lyrica 150 mg (units unknown) (unknown) (unknown) (no date) (unknown) (unknown) MSK: System re viewed and no additional complaints, except as documented. (units unknown) (unknown) (unknown) (no date) (unknown) (unknown) Medical Histor y (Updated 10/16/22 @ 16:44 by Robin Morel MD) (units unknown) (unknown) (unknown) (no date) (unknown) (unknown) Medications (units unknown) (unknown) (unknown) (no date) (unknown) (unknown) Medications: (units unknown) (unknown) (unknown) (no date) (unknown) (unknown) Motor (units unknown) (unknown) (unknown) (no date) (unknown) (unknown) Musculoskeletal: (un its unknown) (unknown) (unknown) (no date) (unknown) (unknown) Neuro: System reviewed and no additional complaints, except as documented. (units unknown) (unknown) (unknown) (no date) (unknown) (unknown) Neurologic: (units unknown) (unknown) (unknown) (no date) (unknown) (unknown) Noncontrast?sa gittal?T 1?spin?echo?and?T2?fas t?echo,?sagittal?STIR, ?and?T2?fast?s (units unknown) (unknown) (unknown) (no date) (unknown) (unknown) Not indicated at this time. [] (units unknown) (unknown) (unknown) (no date) (unknown) (unknown) Numbness/Tingl ing: b/l posterior thighs (units unknown) (unknown) (unknown) (no date) (unknown) (unknown) Objective Data (unit s unknown) (unknown) (unknown) (no date) (unknown) (unknown) Objective Data: (uni ts unknown) (unknown) (unknown) (no date) (unknown) (unknown) Onset/Context of haritha n: (units unknown) (unknown) (unknown) (no date) (unknown) (unknown) Onset: insidious (un its unknown) (unknown) (unknown) (no date) (unknown) (unknown) Other: denies (units unknown) (unknown) (unknown) (no date) (unknown) (unknown) PFSH (units unknown) (unknown) (unknown) (no date) (unknown) (unknown) PROCEDURE:??MR ?LUMBAR? SPINE?WITHOUT?CONTRAST (units unknown) (unknown) (unknown) (no date) (unknown) (unknown) PROCEDURE:??XR ?LUMBAR? SPINE?WITH?FLEXION?EXT ENSION?5?VIEWS (units unknown) (unknown) (unknown) (no date) (unknown) (unknown) PT: [place] [facility] 6 visits in the last 6 months (units unknown) (unknown) (unknown) (no date) (unknown) (unknown) Pain Visit (units unknown) (unknown) (unknown) (no date) (unknown) (unknown) Pain location/Radiation: low back pain radiating to b/l posterior thighs (units unknown) (unknown) (unknown) (no date) (unknown) (unknown) Pain ratin /10 today, 9/10 at worst (units unknown) (unknown) (unknown) (no date) (unknown) (unknown) Paraspinous?So ft?Tissu es: (units unknown) (unknown) (unknown) (no date) (unknown) (unknown) Past medical, surgical, social, and family history is unchanged from prior (units unknown) (unknown) (unknown) (no date) (unknown) (unknown) Patient was erickson chi seen here on 10/24/2022 at which time L5-S1 interlaminar ANJEL (units unknown) (unknown) (unknown) (no date) (unknown) (unknown) Patient will r eturn for []. Risks and benefits were discussed. (units unknown) (unknown) (unknown) (no date) (unknown) (unknown) Patient's pain has been present for >6 weeks and is an average of >6/10 on 0-10 (units unknown) (unknown) (unknown) (no date) (unknown) (unknown) Patient: Judi Aguilar MR#: [id number] (units unknown) (unknown) (unknown) (no date) (unknown) (unknown) [place] (Verified 11/18/22 12:56) (units unknown) (unknown) (unknown) (no date) (unknown) (unknown) Pertinent medi cations include: (units unknown) (unknown) (unknown) (no date) (unknown) (unknown) Plan (units unknown) (unknown) (unknown) (no date) (unknown) (unknown) Plan/Recommendations : (units unknown) (unknown) (unknown) (no date) (unknown) (unknown) Prescriptions Written: [] (units unknown) (unknown) (unknown) (no date) (unknown) (unknown) Previous Visit Assessment: 'Judi is a 67-year-old female presenting for (units unknown) (unknown) (unknown) (no date) (unknown) (unknown) Previous pain treatments included: (units unknown) (unknown) (unknown) (no date) (unknown) (unknown) Psych: Appropr iate affect, answers questions appropriately (units unknown) (unknown) (unknown) (no date) (unknown) (unknown) Quality and ti alirio of pain: Back - sharp or dull, intermittent; Legs - hurt and (units unknown) (unknown) (unknown) (no date) (unknown) (unknown) LUISA?on?07/24?at ?14:50?Approved?by: Marianela?Luisa?Clayton?on ?07/24/2022?at? (units unknown) (unknown) (unknown) (no date) (unknown) (unknown) ROS Narrative (units unknown) (unknown) (unknown) (no date) (unknown) (unknown) ROS Narrative: (unit s unknown) (unknown) (unknown) (no date) (unknown) (unknown) ROS (units unknown) (unknown) (unknown) (no date) (unknown) (unknown) Rash (units unknown) (unknown) (unknown) (no date) (unknown) (unknown) Reason For Visit (un its unknown) (unknown) (unknown) (no date) (unknown) (unknown) Red flag symptoms: ( units unknown) (unknown) (unknown) (no date) (unknown) (unknown) Reflex Right Left (u nits unknown) (unknown) (unknown) (no date) (unknown) (unknown) Reflexes: (units unknown) (unknown) (unknown) (no date) (unknown) (unknown) Relieving fact ors include: heat (units unknown) (unknown) (unknown) (no date) (unknown) (unknown) Respiratory: Non-labored breathing pattern on RA. No respiratory distress (units unknown) (unknown) (unknown) (no date) (unknown) (unknown) Reviewed?by:?J eff?Chof fel?RRA?Interpreted:?Luther eric?Luisa??on?07/24?at?14:49 (units unknown) (unknown) (unknown) (no date) (unknown) (unknown) Reviewed?by:?Johnathon lutz?Kyle?Clayton?on?09/20/2022 ?at?14:57???Transcribe d?by:?KASSANDRA?on (units unknown) (unknown) (unknown) (no date) (unknown) (unknown) S/P L5-S1 IL E SI 10/24/2022 (units unknown) (unknown) (unknown) (no date) (unknown) (unknown) S1 Achilles 1+ 1 (un its unknown) (unknown) (unknown) (no date) (unknown) (unknown) S1 Ankle Plantarflexion 5/5 5/5 (units unknown) (unknown) (unknown) (no date) (unknown) (unknown) Saddle anesthe kelby: denies (units unknown) (unknown) (unknown) (no date) (unknown) (unknown) Segment Action Right Left (units unknown) (unknown) (unknown) (no date) (unknown) (unknown) Segment Reflex Right Left (units unknown) (unknown) (unknown) (no date) (unknown) (unknown) Sensory -? Int act to light touch of bilateral lower extremities. Allodynia (units unknown) (unknown) (unknown) (no date) (unknown) (unknown) Signed By: (units unknown) (unknown) (unknown) (no date) (unknown) (unknown) Skin: No appre ciable rashes or skin breakdown (units unknown) (unknown) (unknown) (no date) (unknown) (unknown) Smoking Status : Never smoker (units unknown) (unknown) (unknown) (no date) (unknown) (unknown) Soft?tissues: (units unknown) (unknown) (unknown) (no date) (unknown) (unknown) Spinal?Cord: (units unknown) (unknown) (unknown) (no date) (unknown) (unknown) Standing: incr eased LBP (units unknown) (unknown) (unknown) (no date) (unknown) (unknown) Surgery: denies (uni ts unknown) (unknown) (unknown) (no date) (unknown) (unknown) T12-L1: (units unknown) (unknown) (unknown) (no date) (unknown) (unknown) T2?fast?spin?e cho?may? be?performed.?? (units unknown) (unknown) (unknown) (no date) (unknown) (unknown) TECHNIQUE: (units unknown) (unknown) (unknown) (no date) (unknown) (unknown) TECHNIQUE:?? (units unknown) (unknown) (unknown) (no date) (unknown) (unknown) [facility] (units unknown) (unknown) (unknown) (no date) (unknown) (unknown) This note may have been all or partially generated using voice recognition (units unknown) (unknown) (unknown) (no date) (unknown) (unknown) Tobacco + Subs tance Use (units unknown) (unknown) (unknown) (no date) (unknown) (unknown) Tobacco Status (unit s unknown) (unknown) (unknown) (no date) (unknown) (unknown) Today I have r eviewed available medical information in the patient's medical (units unknown) (unknown) (unknown) (no date) (unknown) (unknown) Tylenol (units unknown) (unknown) (unknown) (no date) (unknown) (unknown) Upper Motor Ne uron Signs: (units unknown) (unknown) (unknown) (no date) (unknown) (unknown) Visit Reasons: FOLLOW UP ANJEL (units unknown) (unknown) (unknown) (no date) (unknown) (unknown) Walking: increased L BP (units unknown) (unknown) (unknown) (no date) (unknown) (unknown) [place] Prescription Monitoring Program ([employer]) was reviewed. (units unknown) (unknown) (unknown) (no date) (unknown) (unknown) We reviewed et iology, predisposing factor(s), natural course, imaging results as (units unknown) (unknown) (unknown) (no date) (unknown) (unknown) Weakness: denies (un its unknown) (unknown) (unknown) (no date) (unknown) (unknown) [History Confi rmed 11/18/22] (units unknown) (unknown) (unknown) (no date) (unknown) (unknown) acet?joint?art hropathy ?L4-L5?and?L5-S1.??No? vertebral?body?robert noé?fractures (units unknown) (unknown) (unknown) (no date) (unknown) (unknown) acetaminophen 500 mg tablet (Tylenol Extra Strength) 500 mg PO Q6H PRN 10/16/22 (units unknown) (unknown) (unknown) (no date) (unknown) (unknown) albuterol sulf ate 90 mcg/actuation aerosol inhaler 2 puff inhalation Q6H PRN (units unknown) (unknown) (unknown) (no date) (unknown) (unknown) amitriptyline 10 mg tablet 10 mg PO BEDTIME 10/16/22 [History Confirmed (units unknown) (unknown) (unknown) (no date) (unknown) (unknown) at?the?L5-S1?level. (units unknown) (unknown) (unknown) (no date) (unknown) (unknown) benefits of va rious treatment options were discussed with the patient in great (units unknown) (unknown) (unknown) (no date) (unknown) (unknown) bowel/bladder dysfunction, and perineal numbness were discussed. The patient was (units unknown) (unknown) (unknown) (no date) (unknown) (unknown) cannot tolerat e physical therapy at the current time due to the intensity of the (units unknown) (unknown) (unknown) (no date) (unknown) (unknown) consider media l branch blocks and RFA.? Medrol Dosepak was also ordered to help (units unknown) (unknown) (unknown) (no date) (unknown) (unknown) cyclobenzaprin e 10 mg tablet 10 mg PO BEDTIME 10/16/22 [History Confirmed (units unknown) (unknown) (unknown) (no date) (unknown) (unknown) d?facet?and?li gamentum ?flavum?hypertrophy.?? Mild?epidural?lipomato sis.??Moderate (units unknown) (unknown) (unknown) (no date) (unknown) (unknown) detail. (units unknown) (unknown) (unknown) (no date) (unknown) (unknown) diclofenac sod ium 75 mg tablet,delayed release 75 mg PO BID PRN 10/16/22 (units unknown) (unknown) (unknown) (no date) (unknown) (unknown) enosis.??Mild? bilatera l?foraminal?stenosis. (units unknown) (unknown) (unknown) (no date) (unknown) (unknown) erate?facet?an d?ligame ntum?flavum?hypertroph y.??Severe?canal?steno sis.??Moderate (units unknown) (unknown) (unknown) (no date) (unknown) (unknown) es?normal?sign al?and?s ize.?? (units unknown) (unknown) (unknown) (no date) (unknown) (unknown) et?and?ligamen jolly?flav um?hypertrophy.??Mild? canal?stenosis.??Sever e?bilateral?fo (units unknown) (unknown) (unknown) (no date) (unknown) (unknown) et?and?ligamen jolly?flav um?hypertrophy.??Mild? epidural?lipomatosis.? ?Mild?canal?st (units unknown) (unknown) (unknown) (no date) (unknown) (unknown) et?and?ligamen jolly?flav um?hypertrophy.??Moder ate?canal?stenosis.??M ild?bilateral? (units unknown) (unknown) (unknown) (no date) (unknown) (unknown) extremities.? Her pain is likely multifactorial with major components of (units unknown) (unknown) (unknown) (no date) (unknown) (unknown) foraminal?nerv e?root?c ompression.?Recommend? correlation?with?clini rashaad?symp (units unknown) (unknown) (unknown) (no date) (unknown) (unknown) foraminal?stenosis. (units unknown) (unknown) (unknown) (no date) (unknown) (unknown) further evalua tion of chronic low back pain with radiation down bilateral lower (units unknown) (unknown) (unknown) (no date) (unknown) (unknown) have occurred. If there are any questions, please contact the Medical Records (units unknown) (unknown) (unknown) (no date) (unknown) (unknown) herapeutic inj ections and surgery. The risks, consequences, alternatives and (units unknown) (unknown) (unknown) (no date) (unknown) (unknown) hypertrophy?an d?epidur al?lipomatosis. (units unknown) (unknown) (unknown) (no date) (unknown) (unknown) improved sleep , improved mobility, etc. (units unknown) (unknown) (unknown) (no date) (unknown) (unknown) in PT. [] (units unknown) (unknown) (unknown) (no date) (unknown) (unknown) instructed to report to the Emergency department, if these symptoms occur. (units unknown) (unknown) (unknown) (no date) (unknown) (unknown) instructed to stop if any side effects. [] (units unknown) (unknown) (unknown) (no date) (unknown) (unknown) intravenous dr ug use, sustained glucocorticoid use, osteoporosis, or a focal (units unknown) (unknown) (unknown) (no date) (unknown) (unknown) local anesthet ic. During that time patient able to participate in ADLs, had (units unknown) (unknown) (unknown) (no date) (unknown) (unknown) loratadine 10 mg tablet (Allergy Relief (loratadine)) 10 mg PO DAILY 10/16/22 (units unknown) (unknown) (unknown) (no date) (unknown) (unknown) may occur. Occ asional wrong-word or 'sound-alike' substitutions may have (units unknown) (unknown) (unknown) (no date) (unknown) (unknown) meds. [] (units unknown) (unknown) (unknown) (no date) (unknown) (unknown) methylpredniso lone 4 mg tablets in a dose pack (Medrol (Domingo)) See Rx (units unknown) (unknown) (unknown) (no date) (unknown) (unknown) metoprolol suc cinate 25 mg tablet,extended release 24 hr 25 mg PO DAILY 10/16/22 (units unknown) (unknown) (unknown) (no date) (unknown) (unknown) morphine Aller gy (Mild, Verified 11/18/22 12:56) (units unknown) (unknown) (unknown) (no date) (unknown) (unknown) nd?L5?on?S1. (units unknown) (unknown) (unknown) (no date) (unknown) (unknown) negative, Hype ralgesia - negative (units unknown) (unknown) (unknown) (no date) (unknown) (unknown) neurological d eficit with progressive or disabling symptoms. (units unknown) (unknown) (unknown) (no date) (unknown) (unknown) ns.??Cholecyst ectomy?c lips. (units unknown) (unknown) (unknown) (no date) (unknown) (unknown) occurred due t o the inherent limitations of voice recognition software. Please (units unknown) (unknown) (unknown) (no date) (unknown) (unknown) of Spinal Cord Injur y) (units unknown) (unknown) (unknown) (no date) (unknown) (unknown) omeprazole 20 mg capsule,delayed release 20 mg PO DAILY 10/16/22 [History (units unknown) (unknown) (unknown) (no date) (unknown) (unknown) or immunosuppr essive therapy, previous or current cancer diagnosis, history of (units unknown) (unknown) (unknown) (no date) (unknown) (unknown) pain. [] (units unknown) (unknown) (unknown) (no date) (unknown) (unknown) pin?echo?throu gh?the?l umbar?spine.??In?cases ?with?scoliosis,?addit ional?coronal? (units unknown) (unknown) (unknown) (no date) (unknown) (unknown) pregabalin 150 mg capsule 150 mg PO BID 10/16/22 [History Confirmed 11/18/22] (units unknown) (unknown) (unknown) (no date) (unknown) (unknown) racic?spine. (units unknown) (unknown) (unknown) (no date) (unknown) (unknown) radicular and axial pain.? She would likely benefit from an L5-S1 epidural (units unknown) (unknown) (unknown) (no date) (unknown) (unknown) raminal?stenos is?with? bilateral?L5?nerve?ghanshyam t?compression. (units unknown) (unknown) (unknown) (no date) (unknown) (unknown) read the note carefully and recognize, using context, where these substitutions (units unknown) (unknown) (unknown) (no date) (unknown) (unknown) record, includ ing relevant provider notes, laboratory work, and imaging. (units unknown) (unknown) (unknown) (no date) (unknown) (unknown) rmal?lumbar?lo rdosis.? ?3?mm?of?retrolisthesi s?of?L1?on?L2,?L2?on?L 3,?L3?on?L4,?a (units unknown) (unknown) (unknown) (no date) (unknown) (unknown) s.??Moderate?c anal?james nosis?at?L2-L3?and?L3- L4. (units unknown) (unknown) (unknown) (no date) (unknown) (unknown) scale and/or p ain interferes with ADLs. (units unknown) (unknown) (unknown) (no date) (unknown) (unknown) software. Alth ough every effort is made to edit content, managed security sales consultant errors (units unknown) (unknown) (unknown) (no date) (unknown) (unknown) stability intact. (u nits unknown) (unknown) (unknown) (no date) (unknown) (unknown) steroid inject ion.? If she continues to have low back pain after this injection, (units unknown) (unknown) (unknown) (no date) (unknown) (unknown) therapy. ?A re ferral was provided for the patient. [] (units unknown) (unknown) (unknown) (no date) (unknown) (unknown) toms?to?ascert ain?rele ellis?of?this?finding. ? (units unknown) (unknown) (unknown) (no date) (unknown) (unknown) ures.??Mild?re active?s ignal?throughout?the?e ndplates?of?the?lumbar ?and?lower?tho (units unknown) (unknown) (unknown) (no date) (unknown) (unknown) visit. (units unknown) (unknown) (unknown) (no date) (unknown) (unknown) walking intact . Tandem gait normal without evidence of ataxia. Lower quarter (units unknown) (unknown) (unknown) (no date) (unknown) (unknown) was performed. Since that time (units unknown) (unknown) (unknown) (no date) (unknown) (unknown) weak (units unknown) (unknown) (unknown) (no date) (unknown) (unknown) well as treatm ent options including medications, physical therapy/exercise, t (units unknown) (unknown) (unknown) (no date) (unknown) (unknown) with future tr eatment planning. [] (units unknown) (unknown) (unknown) (no date) (unknown) (unknown) with short-ter m pain relief.' (units unknown) (unknown) Result panel 16 (unknown) (no date) (unknown) (unknown) (no value) (units unknown) (unknown) (unknown) (no date) (unknown) (unknown) (0=absent, 1=s light response, 2=brisk/normal, 3=very brisk, 4=clonus) (units unknown) (unknown) (unknown) (no date) (unknown) (unknown) (segments are from the International Standards for Neurological Classification (units unknown) (unknown) (unknown) (no date) (unknown) (unknown) - Activity: Co ntinue activity as tolerated. [] (units unknown) (unknown) (unknown) (no date) (unknown) (unknown) - Chiropractor , acupuncture[] (units unknown) (unknown) (unknown) (no date) (unknown) (unknown) - Continues cl inician directed home exercise program including exercises learned (units unknown) (unknown) (unknown) (no date) (unknown) (unknown) - Education: C auda equina and associated symptoms, including motor weakness, (units unknown) (unknown) (unknown) (no date) (unknown) (unknown) - FADIR: Negat eileen bilaterally (units unknown) (unknown) (unknown) (no date) (unknown) (unknown) - Follow-up: [] (uni ts unknown) (unknown) (unknown) (no date) (unknown) (unknown) - Hip ROM is: Within normal limits (units unknown) (unknown) (unknown) (no date) (unknown) (unknown) - I discussed risks, benefits and side effects. Additionally, patient was (units unknown) (unknown) (unknown) (no date) (unknown) (unknown) - Imaging: No new imaging indicated at this time. [] (units unknown) (unknown) (unknown) (no date) (unknown) (unknown) - Interventional/Surgica l procedures: None indicated at this time. [] (units unknown) (unknown) (unknown) (no date) (unknown) (unknown) - Lumbar facet loading: Positive bilaterally (units unknown) (unknown) (unknown) (no date) (unknown) (unknown) - Medications: No new prescription at this time. Patient will continue current (units unknown) (unknown) (unknown) (no date) (unknown) (unknown) - Medications: acetaminophen, NSAIDS, neuropathics, muscle relaxants [] (units unknown) (unknown) (unknown) (no date) (unknown) (unknown) - Physical The rapy: Completed 6 week course in the last 6 months OR Patient (units unknown) (unknown) (unknown) (no date) (unknown) (unknown) - Physical therapy/modalities/DME : Patient will likely benefit from physical (units unknown) (unknown) (unknown) (no date) (unknown) (unknown) - Prescription provided and uptitration instructions given if necessary. [] (units unknown) (unknown) (unknown) (no date) (unknown) (unknown) - Previous [] on [] provided []% relief of pain for the expected duration of the (units unknown) (unknown) (unknown) (no date) (unknown) (unknown) - Referrals: N one indicated at this time. [] (units unknown) (unknown) (unknown) (no date) (unknown) (unknown) - SIJ provocat ion testing: Negative bilaterally (units unknown) (unknown) (unknown) (no date) (unknown) (unknown) - Straight Leg Raise: Positive for leg pain on the left (units unknown) (unknown) (unknown) (no date) (unknown) (unknown) [id number] (units unknown) (unknown) (unknown) (no date) (unknown) (unknown) 10/16/22 [Hist ory Confirmed 11/18/22] (units unknown) (unknown) (unknown) (no date) (unknown) (unknown) 11/18/22 (units unknown) (unknown) (unknown) (no date) (unknown) (unknown) 11/18/22] (units unknown) (unknown) (unknown) (no date) (unknown) (unknown) 1.?Multilevel? degenera tive?disc?and?facet?di sease,?as?well?as?liga mentum?flavum? (units unknown) (unknown) (unknown) (no date) (unknown) (unknown) 1.Limited?rang e?of?mot ion?and?multilevel?lum bar?spine?spondylosis, ?most?notably? (units unknown) (unknown) (unknown) (no date) (unknown) (unknown) 13:04 (units unknown) (unknown) (unknown) (no date) (unknown) (unknown) 2.?Multilevel? canal?st enoses,?worst?at?L4-L5 ?where?there?is?severe ?canal?stenosi (units unknown) (unknown) (unknown) (no date) (unknown) (unknown) ,?14:34. (uni ts unknown) (unknown) (unknown) (no date) (unknown) (unknown) 3.?Multilevel? foramina l?stenoses,?worst?at?L 5-S1?where?there?is?as sociated?intra (units unknown) (unknown) (unknown) (no date) (unknown) (unknown) 4.??Left?iliop soas?mus ronald?atrophy.?? (units unknown) (unknown) (unknown) (no date) (unknown) (unknown) ? Inspection - ? No gross appendicular or axial deformities (units unknown) (unknown) (unknown) (no date) (unknown) (unknown) ? Palpation -n o tenderness to palpation (units unknown) (unknown) (unknown) (no date) (unknown) (unknown) ? ROM -lumbar extension limited due to pain (units unknown) (unknown) (unknown) (no date) (unknown) (unknown) ? Special tests (uni ts unknown) (unknown) (unknown) (no date) (unknown) (unknown) ?09/20/2022?at?15:01 (units unknown) (unknown) (unknown) (no date) (unknown) (unknown) ??5?lumbar?typ e?verteb ral?bodies?are?present ?by?plain?film.??There ?is?loss?of?no (units unknown) (unknown) (unknown) (no date) (unknown) (unknown) ??5?nonrib-viviana ring?bre tebrae?are?present.??3 ?mm?retrolisthesis?L2- L3,?L3-L4?and? (units unknown) (unknown) (unknown) (no date) (unknown) (unknown) ??5?views?of?t he?lumba r?spine?acquired,?incl uding?flexion?and?exte nsion?views.? (units unknown) (unknown) (unknown) (no date) (unknown) (unknown) ? Acetaminophen -denies (units unknown) (unknown) (unknown) (no date) (unknown) (unknown) ? Antidepressants -current (units unknown) (unknown) (unknown) (no date) (unknown) (unknown) ? Antiepileptics -current (units unknown) (unknown) (unknown) (no date) (unknown) (unknown) ? Mu scle Relaxants -cyclobenzaprine (units unknown) (unknown) (unknown) (no date) (unknown) (unknown) ? NS AIDs -current (units unknown) (unknown) (unknown) (no date) (unknown) (unknown) ? Op ioids -denies (units unknown) (unknown) (unknown) (no date) (unknown) (unknown) ? St eroids -denies (units unknown) (unknown) (unknown) (no date) (unknown) (unknown) ? To picals -denies (units unknown) (unknown) (unknown) (no date) (unknown) (unknown) ???Transcribed ?by:?DIANA MORAN?on?07/24/2022?at ?14:50?Approved?by: ?Leonel?Luisa, (units unknown) (unknown) (unknown) (no date) (unknown) (unknown) ??Conus?medull cade?ter minates?at?the?lower?L 1?level.??Visualized?c ord?demonstrat (units unknown) (unknown) (unknown) (no date) (unknown) (unknown) ??Marrow?is?of ?normal? overall?signal.??No?ac [place]?vertebral?body?com pression?fract (units unknown) (unknown) (unknown) (no date) (unknown) (unknown) ??Moderate?dis c?desicc ation.??Mild?disc?heig ht?loss?and?diffuse?di sc?bulge.??Mil (units unknown) (unknown) (unknown) (no date) (unknown) (unknown) ??Moderate?dis c?desicc ation.??Mild?disc?heig ht?loss?and?diffuse?di sc?bulge.??Mod (units unknown) (unknown) (unknown) (no date) (unknown) (unknown) ??Moderate?dis c?height ?loss?and?desiccation. ??Mild?diffuse?disc?bu lge.??Mild?fac (units unknown) (unknown) (unknown) (no date) (unknown) (unknown) ??Moderate?dis c?height ?loss?and?desiccation. ??No?significant?canal ,?or?foraminal (units unknown) (unknown) (unknown) (no date) (unknown) (unknown) ??No?paraverte bral?mas ses.??There?is?asymmet david?left?ileo?psoas?at rophy. (units unknown) (unknown) (unknown) (no date) (unknown) (unknown) ??Overlying?israel wel?gas? pattern?is?normal.??No ?suspicious?soft?tissu e?calcificatio (units unknown) (unknown) (unknown) (no date) (unknown) (unknown) ??[facility],?CR,?XR?LUMBAR?SPIN E?WITH?FLEXION?EXTENSI ON?5?VIEWS,?1/ (units unknown) (unknown) (unknown) (no date) (unknown) (unknown) ??There?is?sanchez ited?ran ge?of?motion,?with?pre served?normal?alignmen t.?? (units unknown) (unknown) (unknown) (no date) (unknown) (unknown) ?M.D.?on?2022?at? 15:37??? (units unknown) (unknown) (unknown) (no date) (unknown) (unknown) ?at?the?L5-S1? level.?? Moderate?facet?petros (units unknown) (unknown) (unknown) (no date) (unknown) (unknown) ?stenosis. (units unknown) (unknown) (unknown) (no date) (unknown) (unknown) ?subarticular? foramina l?stenosis?bilaterally . (units unknown) (unknown) (unknown) (no date) (unknown) (unknown) Accompanied by : Self / Same As Patient (units unknown) (unknown) (unknown) (no date) (unknown) (unknown) Age/Sex: 67 / F Date of Service: (units unknown) (unknown) (unknown) (no date) (unknown) (unknown) Aggravating fa ctors include: standing, walking (units unknown) (unknown) (unknown) (no date) (unknown) (unknown) Alignment?and? [place]: (units unknown) (unknown) (unknown) (no date) (unknown) (unknown) All other syst ems reviewed and are unremarkable except as noted in HPI. (units unknown) (unknown) (unknown) (no date) (unknown) (unknown) Allergies (units unknown) (unknown) (unknown) (no date) (unknown) (unknown) Amitriptyline 10 mg (units unknown) (unknown) (unknown) (no date) (unknown) (unknown) [place] [id number] (units unknown) (unknown) (unknown) (no date) (unknown) (unknown) Assessment + Plan (u nits unknown) (unknown) (unknown) (no date) (unknown) (unknown) Assessment: (units unknown) (unknown) (unknown) (no date) (unknown) (unknown) Attending Dr: Robin Morel MD (units unknown) (unknown) (unknown) (no date) (unknown) (unknown) BMI 42.0 (units unknown) (unknown) (unknown) (no date) (unknown) (unknown) BP 155/78 H (units unknown) (unknown) (unknown) (no date) (unknown) (unknown) Babinski's Caitlin ngoing Downgoing (units unknown) (unknown) (unknown) (no date) (unknown) (unknown) Bilateral?hip? arthropl asties?incompletely?vi sualized. (units unknown) (unknown) (unknown) (no date) (unknown) (unknown) Blood Pressure Location Rt radial (units unknown) (unknown) (unknown) (no date) (unknown) (unknown) Bone?Marrow: (units unknown) (unknown) (unknown) (no date) (unknown) (unknown) Bones: (units unknown) (unknown) (unknown) (no date) (unknown) (unknown) Bowel and blad jonah: Chronic bladder incontinence (units unknown) (unknown) (unknown) (no date) (unknown) (unknown) Bowel and blad jonah: No loss of control (units unknown) (unknown) (unknown) (no date) (unknown) (unknown) COMPARISON: (units unknown) (unknown) (unknown) (no date) (unknown) (unknown) COMPARISON:??None. ( units unknown) (unknown) (unknown) (no date) (unknown) (unknown) Cardiovascular : No edema or cyanosis. 2+ peripheral pulses (units unknown) (unknown) (unknown) (no date) (unknown) (unknown) Chart review: (units unknown) (unknown) (unknown) (no date) (unknown) (unknown) Chief Complaint (uni ts unknown) (unknown) (unknown) (no date) (unknown) (unknown) Chief Complain t: Follow-up (units unknown) (unknown) (unknown) (no date) (unknown) (unknown) Clonus None None (un its unknown) (unknown) (unknown) (no date) (unknown) (unknown) Confirmed 11/18/22] (units unknown) (unknown) (unknown) (no date) (unknown) (unknown) Conservative management includes: (units unknown) (unknown) (unknown) (no date) (unknown) (unknown) Continue [facility] physical therapy. [] (units unknown) (unknown) (unknown) (no date) (unknown) (unknown) Continue home exercise program. [] (units unknown) (unknown) (unknown) (no date) (unknown) (unknown) Current VAS: [] ( units unknown) (unknown) (unknown) (no date) (unknown) (unknown) : 7 Acct:[id number] (units unknown) (unknown) (unknown) (no date) (unknown) (unknown) Denies recent trauma, fever or weight loss of unknown origin, immunocompromise (units unknown) (unknown) (unknown) (no date) (unknown) (unknown) Dept at . (units unknown) (unknown) (unknown) (no date) (unknown) (unknown) Details: (units unknown) (unknown) (unknown) (no date) (unknown) (unknown) Diclofenac 75 mg (un its unknown) (unknown) (unknown) (no date) (unknown) (unknown) Documented By: Robin Morel MD 11/14/22 2012 (units unknown) (unknown) (unknown) (no date) (unknown) (unknown) Draft (units unknown) (unknown) (unknown) (no date) (unknown) (unknown) Exam Narrative (unit s unknown) (unknown) (unknown) (no date) (unknown) (unknown) Exam Narrative: (uni ts unknown) (unknown) (unknown) (no date) (unknown) (unknown) Exam (units unknown) (unknown) (unknown) (no date) (unknown) (unknown) FINDINGS:?? (units unknown) (unknown) (unknown) (no date) (unknown) (unknown) FOLLOW UP ANJEL (units unknown) (unknown) (unknown) (no date) (unknown) (unknown) Flexion/extension: ( units unknown) (unknown) (unknown) (no date) (unknown) (unknown) Gait/Station - Non-antalgic gait. Heel (L5 strength) and toe (S1 strength) (units unknown) (unknown) (unknown) (no date) (unknown) (unknown) General: Well-nourished, well-developed, female in no acute distress (units unknown) (unknown) (unknown) (no date) (unknown) (unknown) HPI (units unknown) (unknown) (unknown) (no date) (unknown) (unknown) Height 5 ft 7 in (un its unknown) (unknown) (unknown) (no date) (unknown) (unknown) IMPRESSION:?? (units unknown) (unknown) (unknown) (no date) (unknown) (unknown) INDICATIONS:?? lumbar?p ain (units unknown) (unknown) (unknown) (no date) (unknown) (unknown) INDICATIONS:??pain ( units unknown) (unknown) (unknown) (no date) (unknown) (unknown) Image?quality: ??Excell ent.?? (units unknown) (unknown) (unknown) (no date) (unknown) (unknown) Injections: (units unknown) (unknown) (unknown) (no date) (unknown) (unknown) Instructions P O PER PKG DIR radiculopathy #21 ea 10/16/22 [Rx Confirmed (units unknown) (unknown) (unknown) (no date) (unknown) (unknown) Intake Clinical Staf f (units unknown) (unknown) (unknown) (no date) (unknown) (unknown) Intake Note: (units unknown) (unknown) (unknown) (no date) (unknown) (unknown) Intake perform ed by: Gisselle Gastelum (units unknown) (unknown) (unknown) (no date) (unknown) (unknown) Intake (units unknown) (unknown) (unknown) (no date) (unknown) (unknown) Interval History: (u nits unknown) (unknown) (unknown) (no date) (unknown) (unknown) Intervention:?Date:?Outcome:?? ? (units unknown) (unknown) (unknown) (no date) (unknown) (unknown) Is patient in pain?: Yes Pain scale (1-10): 6 (units unknown) (unknown) (unknown) (no date) (unknown) (unknown) JUSTIFICATION OF MEDICAL NECESSITY (units unknown) (unknown) (unknown) (no date) (unknown) (unknown) L-spine/T-spin e/C-spin e MRI ordered to better delineate the anatomy and help (units unknown) (unknown) (unknown) (no date) (unknown) (unknown) L1-L2: (units unknown) (unknown) (unknown) (no date) (unknown) (unknown) L2 Hip Flexion 5/5 5/5? (units unknown) (unknown) (unknown) (no date) (unknown) (unknown) L2-L3: (units unknown) (unknown) (unknown) (no date) (unknown) (unknown) L3 Knee Extens ion 5/5 5/5 (units unknown) (unknown) (unknown) (no date) (unknown) (unknown) L3-L4: (units unknown) (unknown) (unknown) (no date) (unknown) (unknown) L4 Ankle Dorsi flexion 5/5 5/5 (units unknown) (unknown) (unknown) (no date) (unknown) (unknown) L4 Patella 1+ 1 (uni ts unknown) (unknown) (unknown) (no date) (unknown) (unknown) L4-L5: (units unknown) (unknown) (unknown) (no date) (unknown) (unknown) L5 Long Toe Ex tension 5/5 5/5 (units unknown) (unknown) (unknown) (no date) (unknown) (unknown) L5-S1 IL ANJEL? 10/24/2022? (units unknown) (unknown) (unknown) (no date) (unknown) (unknown) L5-S1.??Multil evel?dis c?height?loss?with?end plate?sclerosis?and?sp urring,?severe (units unknown) (unknown) (unknown) (no date) (unknown) (unknown) L5-S1: (units unknown) (unknown) (unknown) (no date) (unknown) (unknown) Loc: PAIN (units unknown) (unknown) (unknown) (no date) (unknown) (unknown) Low back pain (units unknown) (unknown) (unknown) (no date) (unknown) (unknown) Lumbar radiculopathy (units unknown) (unknown) (unknown) (no date) (unknown) (unknown) Lyrica 150 mg (units unknown) (unknown) (unknown) (no date) (unknown) (unknown) MSK: System re viewed and no additional complaints, except as documented. (units unknown) (unknown) (unknown) (no date) (unknown) (unknown) Medical Histor y (Updated 10/16/22 @ 16:44 by Robin Morel MD) (units unknown) (unknown) (unknown) (no date) (unknown) (unknown) Medications (units unknown) (unknown) (unknown) (no date) (unknown) (unknown) Medications: (units unknown) (unknown) (unknown) (no date) (unknown) (unknown) Motor (units unknown) (unknown) (unknown) (no date) (unknown) (unknown) Musculoskeletal: (un its unknown) (unknown) (unknown) (no date) (unknown) (unknown) Neuro: System reviewed and no additional complaints, except as documented. (units unknown) (unknown) (unknown) (no date) (unknown) (unknown) Neurologic: (units unknown) (unknown) (unknown) (no date) (unknown) (unknown) Noncontrast?sa gittal?T 1?spin?echo?and?T2?fas t?echo,?sagittal?STIR, ?and?T2?fast?s (units unknown) (unknown) (unknown) (no date) (unknown) (unknown) Not indicated at this time. [] (units unknown) (unknown) (unknown) (no date) (unknown) (unknown) Numbness/Tingl ing: b/l posterior thighs (units unknown) (unknown) (unknown) (no date) (unknown) (unknown) Objective Data (unit s unknown) (unknown) (unknown) (no date) (unknown) (unknown) Objective Data: (uni ts unknown) (unknown) (unknown) (no date) (unknown) (unknown) Onset/Context of haritha n: (units unknown) (unknown) (unknown) (no date) (unknown) (unknown) Onset: insidious (un its unknown) (unknown) (unknown) (no date) (unknown) (unknown) Other: denies (units unknown) (unknown) (unknown) (no date) (unknown) (unknown) Oxygen Deliver y Method room air (units unknown) (unknown) (unknown) (no date) (unknown) (unknown) PFSH (units unknown) (unknown) (unknown) (no date) (unknown) (unknown) PROCEDURE:??MR ?LUMBAR? SPINE?WITHOUT?CONTRAST (units unknown) (unknown) (unknown) (no date) (unknown) (unknown) PROCEDURE:??XR ?LUMBAR? SPINE?WITH?FLEXION?EXT ENSION?5?VIEWS (units unknown) (unknown) (unknown) (no date) (unknown) (unknown) PT: Whjocelynn He alth 6 visits in the last 6 months (units unknown) (unknown) (unknown) (no date) (unknown) (unknown) Pain Scale (units unknown) (unknown) (unknown) (no date) (unknown) (unknown) Pain Visit (units unknown) (unknown) (unknown) (no date) (unknown) (unknown) Pain location/Radiation: low back pain radiating to b/l posterior thighs (units unknown) (unknown) (unknown) (no date) (unknown) (unknown) Pain ratin /10 today, 9/10 at worst (units unknown) (unknown) (unknown) (no date) (unknown) (unknown) Paraspinous?So ft?Tissu es: (units unknown) (unknown) (unknown) (no date) (unknown) (unknown) Past medical, surgical, social, and family history is unchanged from prior (units unknown) (unknown) (unknown) (no date) (unknown) (unknown) Patient was erickson chi seen here on 10/24/2022 at which time L5-S1 interlaminar ANJEL (units unknown) (unknown) (unknown) (no date) (unknown) (unknown) Patient will r eturn for []. Risks and benefits were discussed. (units unknown) (unknown) (unknown) (no date) (unknown) (unknown) Patient's pain has been present for >6 weeks and is an average of >6/10 on 0-10 (units unknown) (unknown) (unknown) (no date) (unknown) (unknown) Patient: Judi Aguilar MR#: [id number] (units unknown) (unknown) (unknown) (no date) (unknown) (unknown) [place] Clarence martel (Verified 11/18/22 12:56) (units unknown) (unknown) (unknown) (no date) (unknown) (unknown) Pertinent medi cations include: (units unknown) (unknown) (unknown) (no date) (unknown) (unknown) Plan (units unknown) (unknown) (unknown) (no date) (unknown) (unknown) Plan/Recommendations : (units unknown) (unknown) (unknown) (no date) (unknown) (unknown) Position Sitting (un its unknown) (unknown) (unknown) (no date) (unknown) (unknown) Prescriptions Written: [] (units unknown) (unknown) (unknown) (no date) (unknown) (unknown) Previous Visit Assessment: Lona is a 67-year-old female presenting for (units unknown) (unknown) (unknown) (no date) (unknown) (unknown) Previous pain treatments included: (units unknown) (unknown) (unknown) (no date) (unknown) (unknown) Psych: Appropr iate affect, answers questions appropriately (units unknown) (unknown) (unknown) (no date) (unknown) (unknown) Pulse 101 H (units unknown) (unknown) (unknown) (no date) (unknown) (unknown) Pulse Oximetry (%) 9 7 (units unknown) (unknown) (unknown) (no date) (unknown) (unknown) Pulse Source Monitor (units unknown) (unknown) (unknown) (no date) (unknown) (unknown) Quality and ti alirio of pain: Back - sharp or dull, intermittent; Legs - hurt and (units unknown) (unknown) (unknown) (no date) (unknown) (unknown) ROS Narrative (units unknown) (unknown) (unknown) (no date) (unknown) (unknown) ROS Narrative: (unit s unknown) (unknown) (unknown) (no date) (unknown) (unknown) ROS (units unknown) (unknown) (unknown) (no date) (unknown) (unknown) Rash (units unknown) (unknown) (unknown) (no date) (unknown) (unknown) Reason For Visit (un its unknown) (unknown) (unknown) (no date) (unknown) (unknown) Red flag symptoms: ( units unknown) (unknown) (unknown) (no date) (unknown) (unknown) Reflex Right Left (u nits unknown) (unknown) (unknown) (no date) (unknown) (unknown) Reflexes: (units unknown) (unknown) (unknown) (no date) (unknown) (unknown) Relieving fact ors include: heat (units unknown) (unknown) (unknown) (no date) (unknown) (unknown) Respiratory: Non-labored breathing pattern on RA. No respiratory distress (units unknown) (unknown) (unknown) (no date) (unknown) (unknown) Reviewed?by:?J eff?Chof fel?RRA?Interpreted:?Luther eric?Luisa??on?07/24?at?14:49 (units unknown) (unknown) (unknown) (no date) (unknown) (unknown) Reviewed?by:?Johnathon lutz?Kyle,?M.D.?on?09/20/2022 ?at?14:57???Transcribe d?by:?CANNON?on (units unknown) (unknown) (unknown) (no date) (unknown) (unknown) S/P L5-S1 IL E SI 10/24/2022 (units unknown) (unknown) (unknown) (no date) (unknown) (unknown) S1 Achilles 1+ 1 (un its unknown) (unknown) (unknown) (no date) (unknown) (unknown) S1 Ankle Plantarflexion 5/5 5/5 (units unknown) (unknown) (unknown) (no date) (unknown) (unknown) Saddle anesthe kelby: denies (units unknown) (unknown) (unknown) (no date) (unknown) (unknown) Segment Action Right Left (units unknown) (unknown) (unknown) (no date) (unknown) (unknown) Segment Reflex Right Left (units unknown) (unknown) (unknown) (no date) (unknown) (unknown) Sensory -? Int act to light touch of bilateral lower extremities. Allodynia (units unknown) (unknown) (unknown) (no date) (unknown) (unknown) Signed By: (units unknown) (unknown) (unknown) (no date) (unknown) (unknown) Skin: No appre ciable rashes or skin breakdown (units unknown) (unknown) (unknown) (no date) (unknown) (unknown) Smoking Status : Never smoker (units unknown) (unknown) (unknown) (no date) (unknown) (unknown) Soft?tissues: (units unknown) (unknown) (unknown) (no date) (unknown) (unknown) Spinal?Cord: (units unknown) (unknown) (unknown) (no date) (unknown) (unknown) Standing: incr eased LBP (units unknown) (unknown) (unknown) (no date) (unknown) (unknown) Surgery: denies (uni ts unknown) (unknown) (unknown) (no date) (unknown) (unknown) T12-L1: (units unknown) (unknown) (unknown) (no date) (unknown) (unknown) T2?fast?spin?e cho?may? be?performed.?? (units unknown) (unknown) (unknown) (no date) (unknown) (unknown) TECHNIQUE: (units unknown) (unknown) (unknown) (no date) (unknown) (unknown) TECHNIQUE:?? (units unknown) (unknown) (unknown) (no date) (unknown) (unknown) Temp 98.1 F (units unknown) (unknown) (unknown) (no date) (unknown) (unknown) Temp Source Te mporal Artery Scan (units unknown) (unknown) (unknown) (no date) (unknown) (unknown) [facility] (units unknown) (unknown) (unknown) (no date) (unknown) (unknown) This note may have been all or partially generated using voice recognition (units unknown) (unknown) (unknown) (no date) (unknown) (unknown) Tobacco + Subs tance Use (units unknown) (unknown) (unknown) (no date) (unknown) (unknown) Tobacco Status (unit s unknown) (unknown) (unknown) (no date) (unknown) (unknown) Today I have r eviewed available medical information in the patient's medical (units unknown) (unknown) (unknown) (no date) (unknown) (unknown) Tylenol (units unknown) (unknown) (unknown) (no date) (unknown) (unknown) Upper Motor Ne uron Signs: (units unknown) (unknown) (unknown) (no date) (unknown) (unknown) Visit Reasons: FOLLOW UP ANJEL (units unknown) (unknown) (unknown) (no date) (unknown) (unknown) Vitals (units unknown) (unknown) (unknown) (no date) (unknown) (unknown) Walking: increased L BP (units unknown) (unknown) (unknown) (no date) (unknown) (unknown) [place] Prescription Monitoring Program (E[employer]) was reviewed. (units unknown) (unknown) (unknown) (no date) (unknown) (unknown) We reviewed et iology, predisposing factor(s), natural course, imaging results as (units unknown) (unknown) (unknown) (no date) (unknown) (unknown) Weakness: denies (un its unknown) (unknown) (unknown) (no date) (unknown) (unknown) Weight 268 lb 4 oz ( units unknown) (unknown) (unknown) (no date) (unknown) (unknown) [History Confi rmed 11/18/22] (units unknown) (unknown) (unknown) (no date) (unknown) (unknown) acetaminophen 500 mg tablet (Tylenol Extra Strength) 500 mg PO Q6H PRN 10/16/22 (units unknown) (unknown) (unknown) (no date) (unknown) (unknown) albuterol sulf ate 90 mcg/actuation aerosol inhaler 2 puff inhalation Q6H PRN (units unknown) (unknown) (unknown) (no date) (unknown) (unknown) amitriptyline 10 mg tablet 10 mg PO BEDTIME 10/16/22 [History Confirmed (units unknown) (unknown) (unknown) (no date) (unknown) (unknown) at?the?L5-S1?level. (units unknown) (unknown) (unknown) (no date) (unknown) (unknown) benefits of va rious treatment options were discussed with the patient in great (units unknown) (unknown) (unknown) (no date) (unknown) (unknown) bowel/bladder dysfunction, and perineal numbness were discussed. The patient was (units unknown) (unknown) (unknown) (no date) (unknown) (unknown) cannot tolerat e physical therapy at the current time due to the intensity of the (units unknown) (unknown) (unknown) (no date) (unknown) (unknown) consider media l branch blocks and RFA.? Medrol Dosepak was also ordered to help (units unknown) (unknown) (unknown) (no date) (unknown) (unknown) cyclobenzaprin e 10 mg tablet 10 mg PO TID PRN 11/18/22 [History Confirmed (units unknown) (unknown) (unknown) (no date) (unknown) (unknown) d?facet?and?li gamentum ?flavum?hypertrophy.?? Mild?epidural?lipomato sis.??Moderat (units unknown) (unknown) (unknown) (no date) (unknown) (unknown) detail. (units unknown) (unknown) (unknown) (no date) (unknown) (unknown) diclofenac sod ium 75 mg tablet,delayed release 75 mg PO BID PRN 10/16/22 (units unknown) (unknown) (unknown) (no date) (unknown) (unknown) e?canal?stenos is.??Mod erate?bilateral?forami nal?stenosis. (units unknown) (unknown) (unknown) (no date) (unknown) (unknown) enosis.??Mild? bilatera l?foraminal?stenosis. (units unknown) (unknown) (unknown) (no date) (unknown) (unknown) erate?facet?an d?ligame ntum?flavum?hypertroph y.??Severe?canal?steno sis.??Moderate (units unknown) (unknown) (unknown) (no date) (unknown) (unknown) es?normal?sign al?and?s ize.?? (units unknown) (unknown) (unknown) (no date) (unknown) (unknown) et?and?ligamen jolly?flav um?hypertrophy.??Mild? canal?stenosis.??Sever e?bilateral?fo (units unknown) (unknown) (unknown) (no date) (unknown) (unknown) et?and?ligamen jolly?flav um?hypertrophy.??Mild? epidural?lipomatosis.? ?Mild?canal?st (units unknown) (unknown) (unknown) (no date) (unknown) (unknown) et?and?ligamen jolly?flav um?hypertrophy.??Moder ate?canal?stenosis.??M ild?bilateral? (units unknown) (unknown) (unknown) (no date) (unknown) (unknown) extremities.? Her pain is likely multifactorial with major components of (units unknown) (unknown) (unknown) (no date) (unknown) (unknown) foraminal?nerv e?root?c ompression.?Recommend? correlation?with?clini rashaad?symptoms?t (units unknown) (unknown) (unknown) (no date) (unknown) (unknown) foraminal?stenosis. (units unknown) (unknown) (unknown) (no date) (unknown) (unknown) further evalua tion of chronic low back pain with radiation down bilateral lower (units unknown) (unknown) (unknown) (no date) (unknown) (unknown) have occurred. If there are any questions, please contact the Medical Records (units unknown) (unknown) (unknown) (no date) (unknown) (unknown) hypertrophy?an d?epidur al?lipomatosis. (units unknown) (unknown) (unknown) (no date) (unknown) (unknown) improved sleep , improved mobility, etc. (units unknown) (unknown) (unknown) (no date) (unknown) (unknown) in PT. [] (units unknown) (unknown) (unknown) (no date) (unknown) (unknown) instructed to report to the Emergency department, if these symptoms occur. (units unknown) (unknown) (unknown) (no date) (unknown) (unknown) instructed to stop if any side effects. [] (units unknown) (unknown) (unknown) (no date) (unknown) (unknown) intravenous dr ug use, sustained glucocorticoid use, osteoporosis, or a focal (units unknown) (unknown) (unknown) (no date) (unknown) (unknown) local anesthet ic. During that time patient able to participate in ADLs, had (units unknown) (unknown) (unknown) (no date) (unknown) (unknown) loratadine 10 mg tablet (Allergy Relief (loratadine)) 10 mg PO DAILY 10/16/22 (units unknown) (unknown) (unknown) (no date) (unknown) (unknown) may occur. Occ asional wrong-word or 'sound-alike' substitutions may have (units unknown) (unknown) (unknown) (no date) (unknown) (unknown) meds. [] (units unknown) (unknown) (unknown) (no date) (unknown) (unknown) methylpredniso lone 4 mg tablets in a dose pack (Medrol (Domingo)) See Rx (units unknown) (unknown) (unknown) (no date) (unknown) (unknown) metoprolol suc cinate 25 mg tablet,extended release 24 hr 25 mg PO DAILY 10/16/22 (units unknown) (unknown) (unknown) (no date) (unknown) (unknown) morphine Aller gy (Mild, Verified 11/18/22 12:56) (units unknown) (unknown) (unknown) (no date) (unknown) (unknown) nd?L5?on?S1. (units unknown) (unknown) (unknown) (no date) (unknown) (unknown) negative, Hype ralgesia - negative (units unknown) (unknown) (unknown) (no date) (unknown) (unknown) neurological d eficit with progressive or disabling symptoms. (units unknown) (unknown) (unknown) (no date) (unknown) (unknown) ns.??Cholecyst ectomy?c lips. (units unknown) (unknown) (unknown) (no date) (unknown) (unknown) nt?arthropathy ?L4-L5?a nd?L5-S1.??No?vertebra l?body?compression?fra ctures.??No?jansen (units unknown) (unknown) (unknown) (no date) (unknown) (unknown) o?ascertain?re levance? of?this?finding.? (units unknown) (unknown) (unknown) (no date) (unknown) (unknown) occurred due t o the inherent limitations of voice recognition software. Please (units unknown) (unknown) (unknown) (no date) (unknown) (unknown) of Spinal Cord Injur y) (units unknown) (unknown) (unknown) (no date) (unknown) (unknown) omeprazole 20 mg capsule,delayed release 20 mg PO DAILY 10/16/22 [History (units unknown) (unknown) (unknown) (no date) (unknown) (unknown) or immunosuppr essive therapy, previous or current cancer diagnosis, history of (units unknown) (unknown) (unknown) (no date) (unknown) (unknown) pain. [] (units unknown) (unknown) (unknown) (no date) (unknown) (unknown) pin?echo?throu gh?the?l umbar?spine.??In?cases ?with?scoliosis,?addit ional?coronal? (units unknown) (unknown) (unknown) (no date) (unknown) (unknown) pregabalin 150 mg capsule 150 mg PO BID 10/16/22 [History Confirmed 11/18/22] (units unknown) (unknown) (unknown) (no date) (unknown) (unknown) racic?spine. (units unknown) (unknown) (unknown) (no date) (unknown) (unknown) radicular and axial pain.? She would likely benefit from an L5-S1 epidural (units unknown) (unknown) (unknown) (no date) (unknown) (unknown) raminal?stenos is?with? bilateral?L5?nerve?ghanshyam t?compression. (units unknown) (unknown) (unknown) (no date) (unknown) (unknown) read the note carefully and recognize, using context, where these substitutions (units unknown) (unknown) (unknown) (no date) (unknown) (unknown) record, includ ing relevant provider notes, laboratory work, and imaging. (units unknown) (unknown) (unknown) (no date) (unknown) (unknown) rmal?lumbar?lo rdosis.? ?3?mm?of?retrolisthesi s?of?L1?on?L2,?L2?on?L 3,?L3?on?L4,?a (units unknown) (unknown) (unknown) (no date) (unknown) (unknown) s.??Moderate?c anal?james nosis?at?L2-L3?and?L3- L4. (units unknown) (unknown) (unknown) (no date) (unknown) (unknown) scale and/or p ain interferes with ADLs. (units unknown) (unknown) (unknown) (no date) (unknown) (unknown) software. 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 lesions. ?? (units unknown) (unknown) (unknown) (no date) (unknown) (unknown) stability intact. (u nits unknown) (unknown) (unknown) (no date) (unknown) (unknown) steroid inject ion.? If she continues to have low back pain after this injection, (units unknown) (unknown) (unknown) (no date) (unknown) (unknown) therapeutic in jections and surgery. The risks, consequences, alternatives and (units unknown) (unknown) (unknown) (no date) (unknown) (unknown) therapy. ?A re ferral was provided for the patient. [] (units unknown) (unknown) (unknown) (no date) (unknown) (unknown) ures.??Mild?re active?s ignal?throughout?the?e ndplates?of?the?lumbar ?and?lower?tho (units unknown) (unknown) (unknown) (no date) (unknown) (unknown) visit. (units unknown) (unknown) (unknown) (no date) (unknown) (unknown) walking intact . Tandem gait normal without evidence of ataxia. Lower quarter (units unknown) (unknown) (unknown) (no date) (unknown) (unknown) was performed. Since that time (units unknown) (unknown) (unknown) (no date) (unknown) (unknown) weak (units unknown) (unknown) (unknown) (no date) (unknown) (unknown) well as treatm ent options including medications, physical therapy/exercise, (units unknown) (unknown) (unknown) (no date) (unknown) (unknown) with future tr eatment planning. [] (units unknown) (unknown) (unknown) (no date) (unknown) (unknown) with short-ter m pain relief.' (units unknown) (unknown) Result panel 17 (unknown) (no date) (unknown) (unknown) (no value) (units unknown) (unknown) (unknown) (no date) (unknown) (unknown) (0=absent, 1=s light response, 2=brisk/normal, 3=very brisk, 4=clonus) (units unknown) (unknown) (unknown) (no date) (unknown) (unknown) (segments are from the International Standards for Neurological Classification (units unknown) (unknown) (unknown) (no date) (unknown) (unknown) - Activity: Co ntinue activity as tolerated. [] (units unknown) (unknown) (unknown) (no date) (unknown) (unknown) - Chiropractor , acupuncture[] (units unknown) (unknown) (unknown) (no date) (unknown) (unknown) - Continues cl inician directed home exercise program including exercises learned (units unknown) (unknown) (unknown) (no date) (unknown) (unknown) - Education: C auda equina and associated symptoms, including motor weakness, (units unknown) (unknown) (unknown) (no date) (unknown) (unknown) - FADIR: Negat eileen bilaterally (units unknown) (unknown) (unknown) (no date) (unknown) (unknown) - Follow-up: [] (uni ts unknown) (unknown) (unknown) (no date) (unknown) (unknown) - Hip ROM is: Within normal limits (units unknown) (unknown) (unknown) (no date) (unknown) (unknown) - I discussed risks, benefits and side effects. Additionally, patient was (units unknown) (unknown) (unknown) (no date) (unknown) (unknown) - Imaging: No new imaging indicated at this time. [] (units unknown) (unknown) (unknown) (no date) (unknown) (unknown) - Interventional/Surgica l procedures: None indicated at this time. [] (units unknown) (unknown) (unknown) (no date) (unknown) (unknown) - Lumbar facet loading: Positive bilaterally (units unknown) (unknown) (unknown) (no date) (unknown) (unknown) - Medications: No new prescription at this time. Patient will continue current (units unknown) (unknown) (unknown) (no date) (unknown) (unknown) - Medications: acetaminophen, NSAIDS, neuropathics, muscle relaxants [] (units unknown) (unknown) (unknown) (no date) (unknown) (unknown) - Physical The rapy: Completed 6 week course in the last 6 months OR Patient (units unknown) (unknown) (unknown) (no date) (unknown) (unknown) - Physical therapy/modalities/DME : Patient will likely benefit from physical (units unknown) (unknown) (unknown) (no date) (unknown) (unknown) - Prescription provided and uptitration instructions given if necessary. [] (units unknown) (unknown) (unknown) (no date) (unknown) (unknown) - Previous [] on [] provided []% relief of pain for the expected duration of the (units unknown) (unknown) (unknown) (no date) (unknown) (unknown) - Referrals: N one indicated at this time. [] (units unknown) (unknown) (unknown) (no date) (unknown) (unknown) - SIJ provocat ion testing: Negative bilaterally (units unknown) (unknown) (unknown) (no date) (unknown) (unknown) - Straight Leg Raise: Positive for leg pain on the left (units unknown) (unknown) (unknown) (no date) (unknown) (unknown) [id number] (units unknown) (unknown) (unknown) (no date) (unknown) (unknown) 10/16/22 [Hist ory Confirmed 11/18/22] (units unknown) (unknown) (unknown) (no date) (unknown) (unknown) 11/18/22 (units unknown) (unknown) (unknown) (no date) (unknown) (unknown) 11/18/22] (units unknown) (unknown) (unknown) (no date) (unknown) (unknown) 1.?Multilevel? degenera tive?disc?and?facet?di sease,?as?well?as?liga mentum?flavum? (units unknown) (unknown) (unknown) (no date) (unknown) (unknown) 1.Limited?rang e?of?mot ion?and?multilevel?lum bar?spine?spondylosis, ?most?notably? (units unknown) (unknown) (unknown) (no date) (unknown) (unknown) 13:04 (units unknown) (unknown) (unknown) (no date) (unknown) (unknown) 15:37??? (units unknown) (unknown) (unknown) (no date) (unknown) (unknown) 2.?Multilevel? canal?st enoses,?worst?at?L4-L5 ?where?there?is?severe ?canal?stenosi (units unknown) (unknown) (unknown) (no date) (unknown) (unknown) ,?14:34. (uni ts unknown) (unknown) (unknown) (no date) (unknown) (unknown) 3.?Multilevel? foramina l?stenoses,?worst?at?L 5 (units unknown) (unknown) (unknown) (no date) (unknown) (unknown) 4.??Left?iliop soas?mus ronald?atrophy.?? (units unknown) (unknown) (unknown) (no date) (unknown) (unknown) ? Inspection - ? No gross appendicular or axial deformities (units unknown) (unknown) (unknown) (no date) (unknown) (unknown) ? Palpation -n o tenderness to palpation (units unknown) (unknown) (unknown) (no date) (unknown) (unknown) ? ROM -lumbar extension limited due to pain (units unknown) (unknown) (unknown) (no date) (unknown) (unknown) ? Special tests (uni ts unknown) (unknown) (unknown) (no date) (unknown) (unknown) ?09/20/2022?at?15:01 (units unknown) (unknown) (unknown) (no date) (unknown) (unknown) ??5?lumbar?typ e?verteb ral?bodies?are?present ?by?plain?film.??There ?is?loss?of?no (units unknown) (unknown) (unknown) (no date) (unknown) (unknown) ??5?nonrib-viviana ring?bre tebrae?are?present.??3 ?mm?retrolisthesis?L2- L3,?L3-L4?and? (units unknown) (unknown) (unknown) (no date) (unknown) (unknown) ??5?views?of?t he?lumba r?spine?acquired,?incl uding?flexion?and?exte nsion?views.? (units unknown) (unknown) (unknown) (no date) (unknown) (unknown) ? Acetaminophen -denies (units unknown) (unknown) (unknown) (no date) (unknown) (unknown) ? Antidepressants -current (units unknown) (unknown) (unknown) (no date) (unknown) (unknown) ? Antiepileptics -current (units unknown) (unknown) (unknown) (no date) (unknown) (unknown) ? Mu scle Relaxants -cyclobenzaprine (units unknown) (unknown) (unknown) (no date) (unknown) (unknown) ? NS AIDs -current (units unknown) (unknown) (unknown) (no date) (unknown) (unknown) ? Op ioids -denies (units unknown) (unknown) (unknown) (no date) (unknown) (unknown) ? St eroids -denies (units unknown) (unknown) (unknown) (no date) (unknown) (unknown) ? To picals -denies (units unknown) (unknown) (unknown) (no date) (unknown) (unknown) ???Transcribed?by:?J C (units unknown) (unknown) (unknown) (no date) (unknown) (unknown) ??Conus?medull cade?ter minates?at?the?lower?L 1?level.??Visualized?c ord?demonstrat (units unknown) (unknown) (unknown) (no date) (unknown) (unknown) ??Marrow?is?of ?normal? overall?signal.??No?ac [place]?vertebral?body?com pression?fract (units unknown) (unknown) (unknown) (no date) (unknown) (unknown) ??Moderate?dis c?desicc ation.??Mild?disc?heig ht?loss?and?diffuse?di sc?bulge.??Mil (units unknown) (unknown) (unknown) (no date) (unknown) (unknown) ??Moderate?dis c?desicc ation.??Mild?disc?heig ht?loss?and?diffuse?di sc?bulge.??Mod (units unknown) (unknown) (unknown) (no date) (unknown) (unknown) ??Moderate?dis c?height ?loss?and?desiccation. ??Mild?diffuse?disc?bu lge.??Mild?fac (units unknown) (unknown) (unknown) (no date) (unknown) (unknown) ??Moderate?dis c?height ?loss?and?desiccation. ??No?significant?canal ,?or?foraminal (units unknown) (unknown) (unknown) (no date) (unknown) (unknown) ??No?paraverte bral?mas ses.??There?is?asymmet david?left?ileo?psoas?at rophy. (units unknown) (unknown) (unknown) (no date) (unknown) (unknown) ??Overlying?israel wel?gas? pattern?is?normal.??No ?suspicious?soft?tissu e?calcificatio (units unknown) (unknown) (unknown) (no date) (unknown) (unknown) ??[facility],?CR,?XR?LUMBAR?SPIN E?WITH?FLEXION?EXTENSI ON?5?VIEWS,?1/ (units unknown) (unknown) (unknown) (no date) (unknown) (unknown) ??There?is?sanchez ited?ran ge?of?motion,?with?pre served?normal?alignmen t.?? (units unknown) (unknown) (unknown) (no date) (unknown) (unknown) ?at?the?L5-S1?leve ( units unknown) (unknown) (unknown) (no date) (unknown) (unknown) ?canal?stenosi s.??Mode rate?bilateral?foramin al?stenosis. (units unknown) (unknown) (unknown) (no date) (unknown) (unknown) ?stenosis. (units unknown) (unknown) (unknown) (no date) (unknown) (unknown) ?subarticular? foramina l?stenosis?bilaterally . (units unknown) (unknown) (unknown) (no date) (unknown) (unknown) Accompanied by : Self / Same As Patient (units unknown) (unknown) (unknown) (no date) (unknown) (unknown) Age/Sex: 67 / F Date of Service: (units unknown) (unknown) (unknown) (no date) (unknown) (unknown) Aggravating fa ctors include: standing, walking (units unknown) (unknown) (unknown) (no date) (unknown) (unknown) Alignment?and? [place]: (units unknown) (unknown) (unknown) (no date) (unknown) (unknown) All other syst ems reviewed and are unremarkable except as noted in HPI. (units unknown) (unknown) (unknown) (no date) (unknown) (unknown) Allergies (units unknown) (unknown) (unknown) (no date) (unknown) (unknown) Amitriptyline 10 mg (units unknown) (unknown) (unknown) (no date) (unknown) (unknown) [place] [id number] (units unknown) (unknown) (unknown) (no date) (unknown) (unknown) Assessment + Plan (u nits unknown) (unknown) (unknown) (no date) (unknown) (unknown) Assessment: (units unknown) (unknown) (unknown) (no date) (unknown) (unknown) Attending Dr: Robin Morel MD (units unknown) (unknown) (unknown) (no date) (unknown) (unknown) BMI 42.0 (units unknown) (unknown) (unknown) (no date) (unknown) (unknown) BP 155/78 H (units unknown) (unknown) (unknown) (no date) (unknown) (unknown) RoesndoComposeright's Caitlin ngoing Downgoing (units unknown) (unknown) (unknown) (no date) (unknown) (unknown) Bilateral?hip? arthropl asties?incompletely?vi sualized. (units unknown) (unknown) (unknown) (no date) (unknown) (unknown) Blood Pressure Location Rt radial (units unknown) (unknown) (unknown) (no date) (unknown) (unknown) Bone?Marrow: (units unknown) (unknown) (unknown) (no date) (unknown) (unknown) Bones: (units unknown) (unknown) (unknown) (no date) (unknown) (unknown) Bowel and blad jonah: Chronic bladder incontinence (units unknown) (unknown) (unknown) (no date) (unknown) (unknown) Bowel and blad jonah: No loss of control (units unknown) (unknown) (unknown) (no date) (unknown) (unknown) COMPARISON: (units unknown) (unknown) (unknown) (no date) (unknown) (unknown) COMPARISON:??None. ( units unknown) (unknown) (unknown) (no date) (unknown) (unknown) Cardiovascular : No edema or cyanosis. 2+ peripheral pulses (units unknown) (unknown) (unknown) (no date) (unknown) (unknown) Chart review: (units unknown) (unknown) (unknown) (no date) (unknown) (unknown) Chief Complaint (uni ts unknown) (unknown) (unknown) (no date) (unknown) (unknown) Chief Complain t: Follow-up (units unknown) (unknown) (unknown) (no date) (unknown) (unknown) Clonus None None (un its unknown) (unknown) (unknown) (no date) (unknown) (unknown) Confirmed 11/18/22] (units unknown) (unknown) (unknown) (no date) (unknown) (unknown) Conservative management includes: (units unknown) (unknown) (unknown) (no date) (unknown) (unknown) Continue [facility]. [] (units unknown) (unknown) (unknown) (no date) (unknown) (unknown) Continue home exercise program. [] (units unknown) (unknown) (unknown) (no date) (unknown) (unknown) Current VAS: 12/07 (u nits unknown) (unknown) (unknown) (no date) (unknown) (unknown) Cyclobenzaprin e 10 mg TID (units unknown) (unknown) (unknown) (no date) (unknown) (unknown) : 7 Acct:[id number] (units unknown) (unknown) (unknown) (no date) (unknown) (unknown) Denies recent trauma, fever or weight loss of unknown origin, immunocompromise (units unknown) (unknown) (unknown) (no date) (unknown) (unknown) Dept at . (units unknown) (unknown) (unknown) (no date) (unknown) (unknown) Details: (units unknown) (unknown) (unknown) (no date) (unknown) (unknown) Diclofenac 75 mg (un its unknown) (unknown) (unknown) (no date) (unknown) (unknown) Documented By: Robin Morel MD 11/14/22 [id number] (units unknown) (unknown) (unknown) (no date) (unknown) (unknown) Draft (units unknown) (unknown) (unknown) (no date) (unknown) (unknown) Exam Narrative (unit s unknown) (unknown) (unknown) (no date) (unknown) (unknown) Exam Narrative: (uni ts unknown) (unknown) (unknown) (no date) (unknown) (unknown) Exam (units unknown) (unknown) (unknown) (no date) (unknown) (unknown) FINDINGS:?? (units unknown) (unknown) (unknown) (no date) (unknown) (unknown) FOLLOW UP ANJEL (units unknown) (unknown) (unknown) (no date) (unknown) (unknown) Flexion/extension: ( units unknown) (unknown) (unknown) (no date) (unknown) (unknown) Gait/Station - Non-antalgic gait. Heel (L5 strength) and toe (S1 strength) (units unknown) (unknown) (unknown) (no date) (unknown) (unknown) General: Well-nourished, well-developed, female in no acute distress (units unknown) (unknown) (unknown) (no date) (unknown) (unknown) HPI (units unknown) (unknown) (unknown) (no date) (unknown) (unknown) Height 5 ft 7 in (un its unknown) (unknown) (unknown) (no date) (unknown) (unknown) IMPRESSION:?? (units unknown) (unknown) (unknown) (no date) (unknown) (unknown) INDICATIONS:?? lumbar?p ain (units unknown) (unknown) (unknown) (no date) (unknown) (unknown) INDICATIONS:??pain ( units unknown) (unknown) (unknown) (no date) (unknown) (unknown) Image?quality: ??Excell ent.?? (units unknown) (unknown) (unknown) (no date) (unknown) (unknown) Injections: (units unknown) (unknown) (unknown) (no date) (unknown) (unknown) Instructions P O PER PKG DIR radiculopathy #21 ea 10/16/22 [Rx Confirmed (units unknown) (unknown) (unknown) (no date) (unknown) (unknown) Intake Clinical Staf f (units unknown) (unknown) (unknown) (no date) (unknown) (unknown) Intake Note: (units unknown) (unknown) (unknown) (no date) (unknown) (unknown) Intake perform ed by: Gisselle Gastelum (units unknown) (unknown) (unknown) (no date) (unknown) (unknown) Intake (units unknown) (unknown) (unknown) (no date) (unknown) (unknown) Interval History: (u nits unknown) (unknown) (unknown) (no date) (unknown) (unknown) Intervention:?Date:?Outcome:?? ? (units unknown) (unknown) (unknown) (no date) (unknown) (unknown) Is patient in pain?: Yes Pain scale (1-10): 6 (units unknown) (unknown) (unknown) (no date) (unknown) (unknown) JUSTIFICATION OF MEDICAL NECESSITY (units unknown) (unknown) (unknown) (no date) (unknown) (unknown) L-spine/T-spin e/C-spin e MRI ordered to better delineate the anatomy and help (units unknown) (unknown) (unknown) (no date) (unknown) (unknown) L1-L2: (units unknown) (unknown) (unknown) (no date) (unknown) (unknown) L2 Hip Flexion 5/5 5/5? (units unknown) (unknown) (unknown) (no date) (unknown) (unknown) L2-L3: (units unknown) (unknown) (unknown) (no date) (unknown) (unknown) L3 Knee Extens ion 5/5 5/5 (units unknown) (unknown) (unknown) (no date) (unknown) (unknown) L3-L4: (units unknown) (unknown) (unknown) (no date) (unknown) (unknown) L4 Ankle Dorsi flexion 5/5 5/5 (units unknown) (unknown) (unknown) (no date) (unknown) (unknown) L4 Patella 1+ 1 (uni ts unknown) (unknown) (unknown) (no date) (unknown) (unknown) L4-L5: (units unknown) (unknown) (unknown) (no date) (unknown) (unknown) L5 Long Toe Ex tension 5/5 5/5 (units unknown) (unknown) (unknown) (no date) (unknown) (unknown) L5-S1 IL ANJEL? 10/24/2022? no change? (units unknown) (unknown) (unknown) (no date) (unknown) (unknown) L5-S1.??Multil evel?dis c?height?loss?with?end plate?sclerosis?and?sp urring,?severe (units unknown) (unknown) (unknown) (no date) (unknown) (unknown) L5-S1: (units unknown) (unknown) (unknown) (no date) (unknown) (unknown) Loc: PAIN (units unknown) (unknown) (unknown) (no date) (unknown) (unknown) Low back pain (units unknown) (unknown) (unknown) (no date) (unknown) (unknown) Lumbar radiculopathy (units unknown) (unknown) (unknown) (no date) (unknown) (unknown) Lyrica 150 mg (units unknown) (unknown) (unknown) (no date) (unknown) (unknown) MSK: System re viewed and no additional complaints, except as documented. (units unknown) (unknown) (unknown) (no date) (unknown) (unknown) Medical Histor y (Updated 10/16/22 @ 16:44 by Robin Morel MD) (units unknown) (unknown) (unknown) (no date) (unknown) (unknown) Medications (units unknown) (unknown) (unknown) (no date) (unknown) (unknown) Medications: (units unknown) (unknown) (unknown) (no date) (unknown) (unknown) Motor (units unknown) (unknown) (unknown) (no date) (unknown) (unknown) Musculoskeletal: (un its unknown) (unknown) (unknown) (no date) (unknown) (unknown) Neuro: System reviewed and no additional complaints, except as documented. (units unknown) (unknown) (unknown) (no date) (unknown) (unknown) Neurologic: (units unknown) (unknown) (unknown) (no date) (unknown) (unknown) Noncontrast?sa gittal?T 1?spin?echo?and?T2?fas t?echo,?sagittal?STIR, ?and?T2?fast?s (units unknown) (unknown) (unknown) (no date) (unknown) (unknown) Not indicated at this time. [] (units unknown) (unknown) (unknown) (no date) (unknown) (unknown) Numbness/Tingl ing: b/l posterior thighs (units unknown) (unknown) (unknown) (no date) (unknown) (unknown) Objective Data (unit s unknown) (unknown) (unknown) (no date) (unknown) (unknown) Objective Data: (uni ts unknown) (unknown) (unknown) (no date) (unknown) (unknown) Onset/Context of haritha n: (units unknown) (unknown) (unknown) (no date) (unknown) (unknown) Onset: insidious (un its unknown) (unknown) (unknown) (no date) (unknown) (unknown) Other: denies (units unknown) (unknown) (unknown) (no date) (unknown) (unknown) Oxygen Deliver y Method room air (units unknown) (unknown) (unknown) (no date) (unknown) (unknown) PFSH (units unknown) (unknown) (unknown) (no date) (unknown) (unknown) PROCEDURE:??MR ?LUMBAR? SPINE?WITHOUT?CONTRAST (units unknown) (unknown) (unknown) (no date) (unknown) (unknown) PROCEDURE:??XR ?LUMBAR? SPINE?WITH?FLEXION?EXT ENSION?5?VIEWS (units unknown) (unknown) (unknown) (no date) (unknown) (unknown) PT: Whjocelynn He alth 6 visits in the last 6 months (units unknown) (unknown) (unknown) (no date) (unknown) (unknown) Pain Scale (units unknown) (unknown) (unknown) (no date) (unknown) (unknown) Pain Visit (units unknown) (unknown) (unknown) (no date) (unknown) (unknown) Pain location/Radiation: low back pain radiating to b/l posterior thighs (units unknown) (unknown) (unknown) (no date) (unknown) (unknown) Pain ratin /10 today, 9/10 at worst (units unknown) (unknown) (unknown) (no date) (unknown) (unknown) Paraspinous?So ft?Tissu es: (units unknown) (unknown) (unknown) (no date) (unknown) (unknown) Past medical, surgical, social, and family history is unchanged from prior (units unknown) (unknown) (unknown) (no date) (unknown) (unknown) Patient was erickson chi seen here on 10/24/2022 at which time L5-S1 interlaminar ANJEL (units unknown) (unknown) (unknown) (no date) (unknown) (unknown) Patient will r eturn for []. Risks and benefits were discussed. (units unknown) (unknown) (unknown) (no date) (unknown) (unknown) Patient's pain has been present for >6 weeks and is an average of >6/10 on 0-10 (units unknown) (unknown) (unknown) (no date) (unknown) (unknown) Patient: Judi Aguilar MR#: [id number] (units unknown) (unknown) (unknown) (no date) (unknown) (unknown) [place] Clarence martel (Verified 11/18/22 12:56) (units unknown) (unknown) (unknown) (no date) (unknown) (unknown) Pertinent medi cations include: (units unknown) (unknown) (unknown) (no date) (unknown) (unknown) Plan (units unknown) (unknown) (unknown) (no date) (unknown) (unknown) Plan/Recommendations : (units unknown) (unknown) (unknown) (no date) (unknown) (unknown) Position Sitting (un its unknown) (unknown) (unknown) (no date) (unknown) (unknown) Prescriptions Written: [] (units unknown) (unknown) (unknown) (no date) (unknown) (unknown) Previous Visit Assessment: Lona is a 67-year-old female presenting for (units unknown) (unknown) (unknown) (no date) (unknown) (unknown) Previous pain treatments included: (units unknown) (unknown) (unknown) (no date) (unknown) (unknown) Psych: Appropr iate affect, answers questions appropriately (units unknown) (unknown) (unknown) (no date) (unknown) (unknown) Pulse 101 H (units unknown) (unknown) (unknown) (no date) (unknown) (unknown) Pulse Oximetry (%) 9 7 (units unknown) (unknown) (unknown) (no date) (unknown) (unknown) Pulse Source Monitor (units unknown) (unknown) (unknown) (no date) (unknown) (unknown) Quality and ti alirio of pain: Back - sharp or dull, intermittent; Legs - hurt and (units unknown) (unknown) (unknown) (no date) (unknown) (unknown) LUISA?on?07/24?at ?14:50?Approved?by: ?Leonel?Luisa,?Clayton?on ?07/24/2022?at? (units unknown) (unknown) (unknown) (no date) (unknown) (unknown) ROS Narrative (units unknown) (unknown) (unknown) (no date) (unknown) (unknown) ROS Narrative: (unit s unknown) (unknown) (unknown) (no date) (unknown) (unknown) ROS (units unknown) (unknown) (unknown) (no date) (unknown) (unknown) Rash (units unknown) (unknown) (unknown) (no date) (unknown) (unknown) Reason For Visit (un its unknown) (unknown) (unknown) (no date) (unknown) (unknown) Red flag symptoms: ( units unknown) (unknown) (unknown) (no date) (unknown) (unknown) Reflex Right Left (u nits unknown) (unknown) (unknown) (no date) (unknown) (unknown) Reflexes: (units unknown) (unknown) (unknown) (no date) (unknown) (unknown) Relieving fact ors include: heat (units unknown) (unknown) (unknown) (no date) (unknown) (unknown) Respiratory: Non-labored breathing pattern on RA. No respiratory distress (units unknown) (unknown) (unknown) (no date) (unknown) (unknown) Reviewed?by:?J eff?Chof fel?RRA?Interpreted:?Luther pathakn?Luisa??on?07/24?at?14:49 (units unknown) (unknown) (unknown) (no date) (unknown) (unknown) Reviewed?by:?Johnathon lutz?Kyle,?M.D.?on?09/20/2022 ?at?14:57???Transcribe d?by:?CANNON?on (units unknown) (unknown) (unknown) (no date) (unknown) (unknown) S/P L5-S1 IL E SI 10/24/2022 (units unknown) (unknown) (unknown) (no date) (unknown) (unknown) S1 Achilles 1+ 1 (un its unknown) (unknown) (unknown) (no date) (unknown) (unknown) S1 Ankle Plantarflexion 5/5 5/5 (units unknown) (unknown) (unknown) (no date) (unknown) (unknown) S1?where?there ?is?asso ciated?intraforaminal? nerve?root?compression .?Recommend?co (units unknown) (unknown) (unknown) (no date) (unknown) (unknown) Saddle anesthe kelby: denies (units unknown) (unknown) (unknown) (no date) (unknown) (unknown) Segment Action Right Left (units unknown) (unknown) (unknown) (no date) (unknown) (unknown) Segment Reflex Right Left (units unknown) (unknown) (unknown) (no date) (unknown) (unknown) Sensory -? Int act to light touch of bilateral lower extremities. Allodynia (units unknown) (unknown) (unknown) (no date) (unknown) (unknown) She has had so me weakness of bilateral lower extremities, R>L. She notes (units unknown) (unknown) (unknown) (no date) (unknown) (unknown) Signed By: (units unknown) (unknown) (unknown) (no date) (unknown) (unknown) Skin: No appre ciable rashes or skin breakdown (units unknown) (unknown) (unknown) (no date) (unknown) (unknown) Smoking Status : Never smoker (units unknown) (unknown) (unknown) (no date) (unknown) (unknown) Soft?tissues: (units unknown) (unknown) (unknown) (no date) (unknown) (unknown) Spinal?Cord: (units unknown) (unknown) (unknown) (no date) (unknown) (unknown) Standing: incr eased LBP (units unknown) (unknown) (unknown) (no date) (unknown) (unknown) Surgery: denies (uni ts unknown) (unknown) (unknown) (no date) (unknown) (unknown) T12-L1: (units unknown) (unknown) (unknown) (no date) (unknown) (unknown) T2?fast?spin?e cho?may? be?performed.?? (units unknown) (unknown) (unknown) (no date) (unknown) (unknown) TECHNIQUE: (units unknown) (unknown) (unknown) (no date) (unknown) (unknown) TECHNIQUE:?? (units unknown) (unknown) (unknown) (no date) (unknown) (unknown) Temp 98.1 F (units unknown) (unknown) (unknown) (no date) (unknown) (unknown) Temp Source Te mporal Artery Scan (units unknown) (unknown) (unknown) (no date) (unknown) (unknown) [facility] (units unknown) (unknown) (unknown) (no date) (unknown) (unknown) This note may have been all or partially generated using voice recognition (units unknown) (unknown) (unknown) (no date) (unknown) (unknown) Tobacco + Subs tance Use (units unknown) (unknown) (unknown) (no date) (unknown) (unknown) Tobacco Status (unit s unknown) (unknown) (unknown) (no date) (unknown) (unknown) Today I have r eviewed available medical information in the patient's medical (units unknown) (unknown) (unknown) (no date) (unknown) (unknown) Tylenol (units unknown) (unknown) (unknown) (no date) (unknown) (unknown) Upper Motor Ne uron Signs: (units unknown) (unknown) (unknown) (no date) (unknown) (unknown) Visit Reasons: FOLLOW UP ANJEL (units unknown) (unknown) (unknown) (no date) (unknown) (unknown) Vitals (units unknown) (unknown) (unknown) (no date) (unknown) (unknown) Walking: increased L BP (units unknown) (unknown) (unknown) (no date) (unknown) (unknown) [place] Prescription Monitoring Program ([employer]) was reviewed. (units unknown) (unknown) (unknown) (no date) (unknown) (unknown) We reviewed et iology, predisposing factor(s), natural course, imaging results as (units unknown) (unknown) (unknown) (no date) (unknown) (unknown) Weakness: denies (un its unknown) (unknown) (unknown) (no date) (unknown) (unknown) Weight 268 lb 4 oz ( units unknown) (unknown) (unknown) (no date) (unknown) (unknown) [History Confi rmed 11/18/22] (units unknown) (unknown) (unknown) (no date) (unknown) (unknown) acetaminophen 500 mg tablet (Tylenol Extra Strength) 500 mg PO Q6H PRN 10/16/22 (units unknown) (unknown) (unknown) (no date) (unknown) (unknown) albuterol sulf ate 90 mcg/actuation aerosol inhaler 2 puff inhalation Q6H PRN (units unknown) (unknown) (unknown) (no date) (unknown) (unknown) amitriptyline 10 mg tablet 10 mg PO BEDTIME 10/16/22 [History Confirmed (units unknown) (unknown) (unknown) (no date) (unknown) (unknown) at?the?L5-S1?level. (units unknown) (unknown) (unknown) (no date) (unknown) (unknown) benefits of va asifus treatment options were discussed with the patient in great (units unknown) (unknown) (unknown) (no date) (unknown) (unknown) bowel/bladder dysfunction, and perineal numbness were discussed. The patient was (units unknown) (unknown) (unknown) (no date) (unknown) (unknown) cannot tolerat e physical therapy at the current time due to the intensity of the (units unknown) (unknown) (unknown) (no date) (unknown) (unknown) consider media l branch blocks and RFA.? Medrol Dosepak was also ordered to help (units unknown) (unknown) (unknown) (no date) (unknown) (unknown) cyclobenzaprin e 10 mg tablet 10 mg PO TID PRN 11/18/22 [History Confirmed (units unknown) (unknown) (unknown) (no date) (unknown) (unknown) d?facet?and?li gamentum ?flavum?hypertrophy.?? Mild?epidural?lipomato sis.??Moderate (units unknown) (unknown) (unknown) (no date) (unknown) (unknown) detail. (units unknown) (unknown) (unknown) (no date) (unknown) (unknown) diclofenac sod ium 75 mg tablet,delayed release 75 mg PO BID PRN 10/16/22 (units unknown) (unknown) (unknown) (no date) (unknown) (unknown) enosis.??Mild? bilatera l?foraminal?stenosis. (units unknown) (unknown) (unknown) (no date) (unknown) (unknown) erate?facet?an d?ligame ntum?flavum?hypertroph y.??Severe?canal?steno sis.??Moderate (units unknown) (unknown) (unknown) (no date) (unknown) (unknown) es?normal?sign al?and?s ize.?? (units unknown) (unknown) (unknown) (no date) (unknown) (unknown) et?and?ligamen jolly?flav um?hypertrophy.??Mild? canal?stenosis.??Sever e?bilateral?fo (units unknown) (unknown) (unknown) (no date) (unknown) (unknown) et?and?ligamen jolly?flav um?hypertrophy.??Mild? epidural?lipomatosis.? ?Mild?canal?st (units unknown) (unknown) (unknown) (no date) (unknown) (unknown) et?and?ligamen jolly?flav um?hypertrophy.??Moder ate?canal?stenosis.??M ild?bilateral? (units unknown) (unknown) (unknown) (no date) (unknown) (unknown) extremities.? Her pain is likely multifactorial with major components of (units unknown) (unknown) (unknown) (no date) (unknown) (unknown) foraminal?stenosis. (units unknown) (unknown) (unknown) (no date) (unknown) (unknown) further evalua tion of chronic low back pain with radiation down bilateral lower (units unknown) (unknown) (unknown) (no date) (unknown) (unknown) have occurred. If there are any questions, please contact the Medical Records (units unknown) (unknown) (unknown) (no date) (unknown) (unknown) hypertrophy?an d?epidur al?lipomatosis. (units unknown) (unknown) (unknown) (no date) (unknown) (unknown) improved sleep , improved mobility, etc. (units unknown) (unknown) (unknown) (no date) (unknown) (unknown) in PT. [] (units unknown) (unknown) (unknown) (no date) (unknown) (unknown) increased LBP with standing/cooking which is worsening. She denies any other (units unknown) (unknown) (unknown) (no date) (unknown) (unknown) instructed to report to the Emergency department, if these symptoms occur. (units unknown) (unknown) (unknown) (no date) (unknown) (unknown) instructed to stop if any side effects. [] (units unknown) (unknown) (unknown) (no date) (unknown) (unknown) intravenous dr ug use, sustained glucocorticoid use, osteoporosis, or a focal (units unknown) (unknown) (unknown) (no date) (unknown) (unknown) l.??Moderate?f acet?petros nt?arthropathy?L4-L5?a nd?L5-S1.??No?vertebra l?body?robert (units unknown) (unknown) (unknown) (no date) (unknown) (unknown) local anesthet ic. During that time patient able to participate in ADLs, had (units unknown) (unknown) (unknown) (no date) (unknown) (unknown) loratadine 10 mg tablet (Allergy Relief (loratadine)) 10 mg PO DAILY 10/16/22 (units unknown) (unknown) (unknown) (no date) (unknown) (unknown) may occur. Occ asional wrong-word or 'sound-alike' substitutions may have (units unknown) (unknown) (unknown) (no date) (unknown) (unknown) medical changes. (un its unknown) (unknown) (unknown) (no date) (unknown) (unknown) meds. [] (units unknown) (unknown) (unknown) (no date) (unknown) (unknown) methylpredniso lone 4 mg tablets in a dose pack (Medrol (Domingo)) See Rx (units unknown) (unknown) (unknown) (no date) (unknown) (unknown) metoprolol suc cinate 25 mg tablet,extended release 24 hr 25 mg PO DAILY 10/16/22 (units unknown) (unknown) (unknown) (no date) (unknown) (unknown) morphine Aller gy (Mild, Verified 11/18/22 12:56) (units unknown) (unknown) (unknown) (no date) (unknown) (unknown) nd?L5?on?S1. (units unknown) (unknown) (unknown) (no date) (unknown) (unknown) negative, Hype ralgesia - negative (units unknown) (unknown) (unknown) (no date) (unknown) (unknown) neurological d eficit with progressive or disabling symptoms. (units unknown) (unknown) (unknown) (no date) (unknown) (unknown) ns.??Cholecyst ectomy?c lips. (units unknown) (unknown) (unknown) (no date) (unknown) (unknown) occurred due t o the inherent limitations of voice recognition software. Please (units unknown) (unknown) (unknown) (no date) (unknown) (unknown) of Spinal Cord Injur y) (units unknown) (unknown) (unknown) (no date) (unknown) (unknown) omeprazole 20 mg capsule,delayed release 20 mg PO DAILY 10/16/22 [History (units unknown) (unknown) (unknown) (no date) (unknown) (unknown) or immunosuppr essive therapy, previous or current cancer diagnosis, history of (units unknown) (unknown) (unknown) (no date) (unknown) (unknown) pain. [] (units unknown) (unknown) (unknown) (no date) (unknown) (unknown) pin?echo?throu gh?the?l umbar?spine.??In?cases ?with?scoliosis,?addit ional?coronal? (units unknown) (unknown) (unknown) (no date) (unknown) (unknown) pregabalin 150 mg capsule 150 mg PO BID 10/16/22 [History Confirmed 11/18/22] (units unknown) (unknown) (unknown) (no date) (unknown) (unknown) racic?spine. (units unknown) (unknown) (unknown) (no date) (unknown) (unknown) radicular and axial pain.? She would likely benefit from an L5-S1 epidural (units unknown) (unknown) (unknown) (no date) (unknown) (unknown) raminal?stenos is?with? bilateral?L5?nerve?ghanshyam t?compression. (units unknown) (unknown) (unknown) (no date) (unknown) (unknown) read the note carefully and recognize, using context, where these substitutions (units unknown) (unknown) (unknown) (no date) (unknown) (unknown) record, includ ing relevant provider notes, laboratory work, and imaging. (units unknown) (unknown) (unknown) (no date) (unknown) (unknown) rmal?lumbar?lo rdosis.? ?3?mm?of?retrolisthesi s?of?L1?on?L2,?L2?on?L 3,?L3?on?L4,?a (units unknown) (unknown) (unknown) (no date) (unknown) (unknown) rrelation?with ?clinica l?symptoms?to?ascertai n?relevance?of?this?fi nding.? (units unknown) (unknown) (unknown) (no date) (unknown) (unknown) s.??Moderate?c anal?jaems nosis?at?L2-L3?and?L3- L4. (units unknown) (unknown) (unknown) (no date) (unknown) (unknown) scale and/or p ain interferes with ADLs. (units unknown) (unknown) (unknown) (no date) (unknown) (unknown) noé?fractures .??No?jansen spicious?bony?lesions. ?? (units unknown) (unknown) (unknown) (no date) (unknown) (unknown) software. Alth ough every effort is made to edit content, managed security sales consultant errors (units unknown) (unknown) (unknown) (no date) (unknown) (unknown) stability intact. (u nits unknown) (unknown) (unknown) (no date) (unknown) (unknown) steroid inject ion.? If she continues to have low back pain after this injection, (units unknown) (unknown) (unknown) (no date) (unknown) (unknown) therapeutic in jections and surgery. The risks, consequences, alternatives and (units unknown) (unknown) (unknown) (no date) (unknown) (unknown) therapy. ?A re ferral was provided for the patient. [] (units unknown) (unknown) (unknown) (no date) (unknown) (unknown) ures.??Mild?re active?s ignal?throughout?the?e ndplates?of?the?lumbar ?and?lower?tho (units unknown) (unknown) (unknown) (no date) (unknown) (unknown) visit. (units unknown) (unknown) (unknown) (no date) (unknown) (unknown) walking intact . Tandem gait normal without evidence of ataxia. Lower quarter (units unknown) (unknown) (unknown) (no date) (unknown) (unknown) was performed. Since that time she has not had any improvement in her pain. (units unknown) (unknown) (unknown) (no date) (unknown) (unknown) weak (units unknown) (unknown) (unknown) (no date) (unknown) (unknown) well as treatm ent options including medications, physical therapy/exercise, (units unknown) (unknown) (unknown) (no date) (unknown) (unknown) with future tr eatment planning. [] (units unknown) (unknown) (unknown) (no date) (unknown) (unknown) with short-ter m pain relief.' (units unknown) (unknown) Result panel 18 (unknown) (no date) (unknown) (unknown) (no value) (units unknown) (unknown) (unknown) (no date) (unknown) (unknown) (0=absent, 1=s light response, 2=brisk/normal, 3=very brisk, 4=clonus) (units unknown) (unknown) (unknown) (no date) (unknown) (unknown) (1) Spinal james nosis, lumbar region with neurogenic claudication: (units unknown) (unknown) (unknown) (no date) (unknown) (unknown) (2) Low back pain: ( units unknown) (unknown) (unknown) (no date) (unknown) (unknown) (3) Lumbar radiculopathy: (units unknown) (unknown) (unknown) (no date) (unknown) (unknown) (segments are from the International Standards for Neurological Classification (units unknown) (unknown) (unknown) (no date) (unknown) (unknown) - Activity: Co ntinue activity as tolerated. (units unknown) (unknown) (unknown) (no date) (unknown) (unknown) - Chiropractor (unit s unknown) (unknown) (unknown) (no date) (unknown) (unknown) - Education: C auda equina and associated symptoms, including motor weakness, (units unknown) (unknown) (unknown) (no date) (unknown) (unknown) - FADIR: Negat eileen bilaterally (units unknown) (unknown) (unknown) (no date) (unknown) (unknown) - Follow-up: After E SI (units unknown) (unknown) (unknown) (no date) (unknown) (unknown) - Hip ROM is: Within normal limits (units unknown) (unknown) (unknown) (no date) (unknown) (unknown) - Imaging: No new imaging indicated at this time. (units unknown) (unknown) (unknown) (no date) (unknown) (unknown) - Interventional/Surgica l procedures: Patient will return for L4-5 interlaminar (units unknown) (unknown) (unknown) (no date) (unknown) (unknown) - Lumbar facet loading: Positive bilaterally (units unknown) (unknown) (unknown) (no date) (unknown) (unknown) - Medications: No new prescription at this time. Patient will continue current (units unknown) (unknown) (unknown) (no date) (unknown) (unknown) - Medications: acetaminophen, NSAIDS, neuropathics, muscle relaxants (units unknown) (unknown) (unknown) (no date) (unknown) (unknown) - Physical The rapy: Completed 6 week course in the last 6 months OR Patient (units unknown) (unknown) (unknown) (no date) (unknown) (unknown) - Physical therapy/modalities/DME : Not indicated at this time. (units unknown) (unknown) (unknown) (no date) (unknown) (unknown) - Referrals: N one indicated at this time. (units unknown) (unknown) (unknown) (no date) (unknown) (unknown) - SIJ provocat ion testing: Negative bilaterally (units unknown) (unknown) (unknown) (no date) (unknown) (unknown) - Straight Leg Raise: Positive for leg pain on the left (units unknown) (unknown) (unknown) (no date) (unknown) (unknown) [id number] (units unknown) (unknown) (unknown) (no date) (unknown) (unknown) 10/16/22 [Hist ory Confirmed 11/18/22] (units unknown) (unknown) (unknown) (no date) (unknown) (unknown) 11/18/22 1323 (units unknown) (unknown) (unknown) (no date) (unknown) (unknown) 11/18/22 (units unknown) (unknown) (unknown) (no date) (unknown) (unknown) 11/18/22] (units unknown) (unknown) (unknown) (no date) (unknown) (unknown) 1.?Multilevel? degenera tive?disc?and?facet?di sease,?as?well?as?liga mentum?flavum? (units unknown) (unknown) (unknown) (no date) (unknown) (unknown) 1.Limited?rang e?of?mot ion?and?multilevel?lum bar?spine?spondylosis, ?most?notably? (units unknown) (unknown) (unknown) (no date) (unknown) (unknown) 13:04 (units unknown) (unknown) (unknown) (no date) (unknown) (unknown) 15:37??? (units unknown) (unknown) (unknown) (no date) (unknown) (unknown) 2.?Multilevel? canal?st enoses,?worst?at?L4-L5 ?where?there?is?severe ?canal?stenosi (units unknown) (unknown) (unknown) (no date) (unknown) (unknown) ,?14:34. (uni ts unknown) (unknown) (unknown) (no date) (unknown) (unknown) 3.?Multilevel? foramina l?stenoses,?worst?at?L 5-S1?where?there?is?as sociated?intra (units unknown) (unknown) (unknown) (no date) (unknown) (unknown) 4.??Left?iliop soas?mus ronald?atrophy.?? (units unknown) (unknown) (unknown) (no date) (unknown) (unknown) ? Inspection - ? No gross appendicular or axial deformities (units unknown) (unknown) (unknown) (no date) (unknown) (unknown) ? Palpation -n o tenderness to palpation (units unknown) (unknown) (unknown) (no date) (unknown) (unknown) ? ROM -lumbar extension limited due to pain (units unknown) (unknown) (unknown) (no date) (unknown) (unknown) ? Special tests (uni ts unknown) (unknown) (unknown) (no date) (unknown) (unknown) ?09/20/2022?at?15:01 (units unknown) (unknown) (unknown) (no date) (unknown) (unknown) ??5?lumbar?typ e?verteb ral?bodies?are?present ?by?plain?film.??There ?is?loss?of?no (units unknown) (unknown) (unknown) (no date) (unknown) (unknown) ??5?nonrib-viviana ring?bre tebrae?are?present.??3 ?mm?retrolisthesis?L2- L3,?L3-L4?and? (units unknown) (unknown) (unknown) (no date) (unknown) (unknown) ??5?views?of?t he?lumba r?spine?acquired,?incl uding?flexion?and?exte nsion?views.? (units unknown) (unknown) (unknown) (no date) (unknown) (unknown) ? Acetaminophen -denies (units unknown) (unknown) (unknown) (no date) (unknown) (unknown) ? Antidepressants -current (units unknown) (unknown) (unknown) (no date) (unknown) (unknown) ? Antiepileptics -current (units unknown) (unknown) (unknown) (no date) (unknown) (unknown) ? Mu scle Relaxants -cyclobenzaprine (units unknown) (unknown) (unknown) (no date) (unknown) (unknown) ? NS AIDs -current (units unknown) (unknown) (unknown) (no date) (unknown) (unknown) ? Op ioids -denies (units unknown) (unknown) (unknown) (no date) (unknown) (unknown) ? St eroids -denies (units unknown) (unknown) (unknown) (no date) (unknown) (unknown) ? To picals -denies (units unknown) (unknown) (unknown) (no date) (unknown) (unknown) ???Transcribed?by:?J C (units unknown) (unknown) (unknown) (no date) (unknown) (unknown) ??Conus?medull cade?ter minates?at?the?lower?L 1?level.??Visualized?c ord?demonstrat (units unknown) (unknown) (unknown) (no date) (unknown) (unknown) ??Marrow?is?of ?normal? overall?signal.??No?ac [place]?vertebral?body?com pression?fract (units unknown) (unknown) (unknown) (no date) (unknown) (unknown) ??Moderate?dis c?desicc ation.??Mild?disc?heig ht?loss?and?diffuse?di sc?bulge.??Mil (units unknown) (unknown) (unknown) (no date) (unknown) (unknown) ??Moderate?dis c?desicc ation.??Mild?disc?heig ht?loss?and?diffuse?di sc?bulge.??Mod (units unknown) (unknown) (unknown) (no date) (unknown) (unknown) ??Moderate?dis c?height ?loss?and?desiccation. ??Mild?diffuse?disc?bu lge.??Mild?fac (units unknown) (unknown) (unknown) (no date) (unknown) (unknown) ??Moderate?dis c?height ?loss?and?desiccation. ??No?significant?canal ,?or?foraminal (units unknown) (unknown) (unknown) (no date) (unknown) (unknown) ??No?paraverte bral?mas ses.??There?is?asymmet david?left?ileo?psoas?at rophy. (units unknown) (unknown) (unknown) (no date) (unknown) (unknown) ??Overlying?israel wel?gas? pattern?is?normal.??No ?suspicious?soft?tissu e?calcificatio (units unknown) (unknown) (unknown) (no date) (unknown) (unknown) ??[facility],?CR,?XR?LUMBAR?SPIN E?WITH?FLEXION?EXTENSI ON?5?VIEWS,?1/ (units unknown) (unknown) (unknown) (no date) (unknown) (unknown) ??There?is?sanchez ited?ran ge?of?motion,?with?pre served?normal?alignmen t.?? (units unknown) (unknown) (unknown) (no date) (unknown) (unknown) ?at?the?L5-S1? level.?? Moderate?facet?petros (units unknown) (unknown) (unknown) (no date) (unknown) (unknown) ?canal?stenosi s.??Mode rate?bilateral?foramin al?stenosis. (units unknown) (unknown) (unknown) (no date) (unknown) (unknown) ?stenosis. (units unknown) (unknown) (unknown) (no date) (unknown) (unknown) ?subarticular? foramina l?stenosis?bilaterally . (units unknown) (unknown) (unknown) (no date) (unknown) (unknown) Accompanied by : Self / Same As Patient (units unknown) (unknown) (unknown) (no date) (unknown) (unknown) Age/Sex: 67 / F Date of Service: (units unknown) (unknown) (unknown) (no date) (unknown) (unknown) Aggravating fa ctors include: standing, walking (units unknown) (unknown) (unknown) (no date) (unknown) (unknown) Alignment?and? [place]: (units unknown) (unknown) (unknown) (no date) (unknown) (unknown) All other syst ems reviewed and are unremarkable except as noted in HPI. (units unknown) (unknown) (unknown) (no date) (unknown) (unknown) Allergies (units unknown) (unknown) (unknown) (no date) (unknown) (unknown) Amitriptyline 10 mg (units unknown) (unknown) (unknown) (no date) (unknown) (unknown) [place] [address] (units unknown) (unknown) (unknown) (no date) (unknown) (unknown) Assessment + Plan (u nits unknown) (unknown) (unknown) (no date) (unknown) (unknown) Assessment: (units unknown) (unknown) (unknown) (no date) (unknown) (unknown) Attending Dr: Robin Morel MD (units unknown) (unknown) (unknown) (no date) (unknown) (unknown) BMI 42.0 (units unknown) (unknown) (unknown) (no date) (unknown) (unknown) BP 155/78 H (units unknown) (unknown) (unknown) (no date) (unknown) (unknown) [employer] Caitlin ngoing Downgoing (units unknown) (unknown) (unknown) (no date) (unknown) (unknown) Bilateral?hip? arthropl asties?incompletely?vi sualized. (units unknown) (unknown) (unknown) (no date) (unknown) (unknown) Blood Pressure Location Rt radial (units unknown) (unknown) (unknown) (no date) (unknown) (unknown) Bone?Marrow: (units unknown) (unknown) (unknown) (no date) (unknown) (unknown) Bones: (units unknown) (unknown) (unknown) (no date) (unknown) (unknown) Bowel and blad jonah: Chronic bladder incontinence (units unknown) (unknown) (unknown) (no date) (unknown) (unknown) Bowel and blad jonah: No loss of control (units unknown) (unknown) (unknown) (no date) (unknown) (unknown) COMPARISON: (units unknown) (unknown) (unknown) (no date) (unknown) (unknown) COMPARISON:??None. ( units unknown) (unknown) (unknown) (no date) (unknown) (unknown) Cardiovascular : No edema or cyanosis. 2+ peripheral pulses (units unknown) (unknown) (unknown) (no date) (unknown) (unknown) Chart review: (units unknown) (unknown) (unknown) (no date) (unknown) (unknown) Judi follow- up status post L5-S1 interlaminar ANJEL. She notes no change in her (units unknown) (unknown) (unknown) (no date) (unknown) (unknown) Chief Complaint (uni ts unknown) (unknown) (unknown) (no date) (unknown) (unknown) Chief Complain t: Follow-up (units unknown) (unknown) (unknown) (no date) (unknown) (unknown) Chronicity: ch ronic Back pain laterality: bilateral Sciatica presence: (units unknown) (unknown) (unknown) (no date) (unknown) (unknown) Clonus None None (un its unknown) (unknown) (unknown) (no date) (unknown) (unknown) Confirmed 11/18/22] (units unknown) (unknown) (unknown) (no date) (unknown) (unknown) Conservative management includes: (units unknown) (unknown) (unknown) (no date) (unknown) (unknown) Current VAS: 12/07 (u nits unknown) (unknown) (unknown) (no date) (unknown) (unknown) Cyclobenzaprin e 10 mg TID (units unknown) (unknown) (unknown) (no date) (unknown) (unknown) : 7 Acct:[id number] (units unknown) (unknown) (unknown) (no date) (unknown) (unknown) Denies recent trauma, fever or weight loss of unknown origin, immunocompromise (units unknown) (unknown) (unknown) (no date) (unknown) (unknown) Dept at . (units unknown) (unknown) (unknown) (no date) (unknown) (unknown) Details: (units unknown) (unknown) (unknown) (no date) (unknown) (unknown) Diclofenac 75 mg (un its unknown) (unknown) (unknown) (no date) (unknown) (unknown) Documented By: Robin Morel MD 11/18/22 1322 (units unknown) (unknown) (unknown) (no date) (unknown) (unknown) ANJEL. If she co ntinues to have symptoms after the injection, we will refer her (units unknown) (unknown) (unknown) (no date) (unknown) (unknown) ANJEL. Risks and benefits were discussed. (units unknown) (unknown) (unknown) (no date) (unknown) (unknown) Exam Narrative (unit s unknown) (unknown) (unknown) (no date) (unknown) (unknown) Exam Narrative: (uni ts unknown) (unknown) (unknown) (no date) (unknown) (unknown) Exam (units unknown) (unknown) (unknown) (no date) (unknown) (unknown) FINDINGS:?? (units unknown) (unknown) (unknown) (no date) (unknown) (unknown) FOLLOW UP ANJEL (units unknown) (unknown) (unknown) (no date) (unknown) (unknown) Flexion/extension: ( units unknown) (unknown) (unknown) (no date) (unknown) (unknown) Gait/Station - Non-antalgic gait. Heel (L5 strength) and toe (S1 strength) (units unknown) (unknown) (unknown) (no date) (unknown) (unknown) General: Well-nourished, well-developed, female in no acute distress (units unknown) (unknown) (unknown) (no date) (unknown) (unknown) HPI (units unknown) (unknown) (unknown) (no date) (unknown) (unknown) Height 5 ft 7 in (un its unknown) (unknown) (unknown) (no date) (unknown) (unknown) IMPRESSION:?? (units unknown) (unknown) (unknown) (no date) (unknown) (unknown) INDICATIONS:?? lumbar?p ain (units unknown) (unknown) (unknown) (no date) (unknown) (unknown) INDICATIONS:??pain ( units unknown) (unknown) (unknown) (no date) (unknown) (unknown) Image?quality: ??Excell ent.?? (units unknown) (unknown) (unknown) (no date) (unknown) (unknown) Injections: (units unknown) (unknown) (unknown) (no date) (unknown) (unknown) Instructions P O PER PKG DIR radiculopathy #21 ea 10/16/22 [Rx Confirmed (units unknown) (unknown) (unknown) (no date) (unknown) (unknown) Intake Clinical Staf f (units unknown) (unknown) (unknown) (no date) (unknown) (unknown) Intake Note: (units unknown) (unknown) (unknown) (no date) (unknown) (unknown) Intake perform ed by: Gisselle Gastelum (units unknown) (unknown) (unknown) (no date) (unknown) (unknown) Intake (units unknown) (unknown) (unknown) (no date) (unknown) (unknown) Interval History: (u nits unknown) (unknown) (unknown) (no date) (unknown) (unknown) Intervention:?Date:?Outcome:?? ? (units unknown) (unknown) (unknown) (no date) (unknown) (unknown) Is patient in pain?: Yes Pain scale (1-10): 6 (units unknown) (unknown) (unknown) (no date) (unknown) (unknown) JUSTIFICATION OF MEDICAL NECESSITY (units unknown) (unknown) (unknown) (no date) (unknown) (unknown) L1-L2: (units unknown) (unknown) (unknown) (no date) (unknown) (unknown) L2 Hip Flexion 5/5 5/5? (units unknown) (unknown) (unknown) (no date) (unknown) (unknown) L2-L3: (units unknown) (unknown) (unknown) (no date) (unknown) (unknown) L3 Knee Extens ion 5/5 5/5 (units unknown) (unknown) (unknown) (no date) (unknown) (unknown) L3-L4: (units unknown) (unknown) (unknown) (no date) (unknown) (unknown) L4 Ankle Dorsi flexion 5/5 5/5 (units unknown) (unknown) (unknown) (no date) (unknown) (unknown) L4 Patella 1+ 1 (uni ts unknown) (unknown) (unknown) (no date) (unknown) (unknown) L4-L5: (units unknown) (unknown) (unknown) (no date) (unknown) (unknown) L5 Long Toe Ex tension 5/5 5/5 (units unknown) (unknown) (unknown) (no date) (unknown) (unknown) L5-S1 IL ANJEL? 10/24/2022? no change? (units unknown) (unknown) (unknown) (no date) (unknown) (unknown) L5-S1.??Multil evel?dis c?height?loss?with?end plate?sclerosis?and?sp urring,?severe (units unknown) (unknown) (unknown) (no date) (unknown) (unknown) L5-S1: (units unknown) (unknown) (unknown) (no date) (unknown) (unknown) Loc: PAIN (units unknown) (unknown) (unknown) (no date) (unknown) (unknown) Low back pain (units unknown) (unknown) (unknown) (no date) (unknown) (unknown) Lumbar radiculopathy (units unknown) (unknown) (unknown) (no date) (unknown) (unknown) Lyrica 150 mg (units unknown) (unknown) (unknown) (no date) (unknown) (unknown) M54.42 - Lumba go with sciatica, left side; G89.29 - Other chronic pain (units unknown) (unknown) (unknown) (no date) (unknown) (unknown) MSK: System re viewed and no additional complaints, except as documented. (units unknown) (unknown) (unknown) (no date) (unknown) (unknown) Medical Histor y (Updated 11/18/22 @ 13:20 by Robin Morel MD) (units unknown) (unknown) (unknown) (no date) (unknown) (unknown) Medications (units unknown) (unknown) (unknown) (no date) (unknown) (unknown) Medications: (units unknown) (unknown) (unknown) (no date) (unknown) (unknown) Mehdi, her sp ine surgeon. Also discussed performing an ANJEL at the L4-5 level (units unknown) (unknown) (unknown) (no date) (unknown) (unknown) Motor (units unknown) (unknown) (unknown) (no date) (unknown) (unknown) Musculoskeletal: (un its unknown) (unknown) (unknown) (no date) (unknown) (unknown) Neuro: System reviewed and no additional complaints, except as documented. (units unknown) (unknown) (unknown) (no date) (unknown) (unknown) Neurologic: (units unknown) (unknown) (unknown) (no date) (unknown) (unknown) Noncontrast?sa gittal?T 1?spin?echo?and?T2?fas t?echo,?sagittal?STIR, ?and?T2?fast?s (units unknown) (unknown) (unknown) (no date) (unknown) (unknown) Numbness/Tingl ing: b/l posterior thighs (units unknown) (unknown) (unknown) (no date) (unknown) (unknown) Objective Data (unit s unknown) (unknown) (unknown) (no date) (unknown) (unknown) Objective Data: (uni ts unknown) (unknown) (unknown) (no date) (unknown) (unknown) Onset/Context of haritha n: (units unknown) (unknown) (unknown) (no date) (unknown) (unknown) Onset: insidious (un its unknown) (unknown) (unknown) (no date) (unknown) (unknown) Orders (units unknown) (unknown) (unknown) (no date) (unknown) (unknown) Orders: (units unknown) (unknown) (unknown) (no date) (unknown) (unknown) Other: denies (units unknown) (unknown) (unknown) (no date) (unknown) (unknown) Oxygen Deliver y Method room air (units unknown) (unknown) (unknown) (no date) (unknown) (unknown) PAIN interlaminar/caudal inj Today M48.062 - Spinal stenosis, lumbar region with (units unknown) (unknown) (unknown) (no date) (unknown) (unknown) PFSH (units unknown) (unknown) (unknown) (no date) (unknown) (unknown) PROCEDURE:??MR ?LUMBAR? SPINE?WITHOUT?CONTRAST (units unknown) (unknown) (unknown) (no date) (unknown) (unknown) PROCEDURE:??XR ?LUMBAR? SPINE?WITH?FLEXION?EXT ENSION?5?VIEWS (units unknown) (unknown) (unknown) (no date) (unknown) (unknown) PT: Aisha He alth 6 visits in the last 6 months (units unknown) (unknown) (unknown) (no date) (unknown) (unknown) Pain Scale (units unknown) (unknown) (unknown) (no date) (unknown) (unknown) Pain Visit (units unknown) (unknown) (unknown) (no date) (unknown) (unknown) Pain location/Radiation: low back pain radiating to b/l posterior thighs (units unknown) (unknown) (unknown) (no date) (unknown) (unknown) Pain ratin /10 today, 9/10 at worst (units unknown) (unknown) (unknown) (no date) (unknown) (unknown) Paraspinous?So ft?Tissu es: (units unknown) (unknown) (unknown) (no date) (unknown) (unknown) Past medical, surgical, social, and family history is unchanged from prior (units unknown) (unknown) (unknown) (no date) (unknown) (unknown) Patient was la st seen here on 10/24/2022 at which time L5-S1 interlaminar ANJEL (units unknown) (unknown) (unknown) (no date) (unknown) (unknown) Patient's pain has been present for >6 weeks and is an average of >6/10 on 0-10 (units unknown) (unknown) (unknown) (no date) (unknown) (unknown) Patient: Judi Aguilar MR#: [id number] (units unknown) (unknown) (unknown) (no date) (unknown) (unknown) [place] Al miangy (Verified 11/18/22 12:56) (units unknown) (unknown) (unknown) (no date) (unknown) (unknown) Pertinent medi cations include: (units unknown) (unknown) (unknown) (no date) (unknown) (unknown) Plan (units unknown) (unknown) (unknown) (no date) (unknown) (unknown) Plan/Recommendations : (units unknown) (unknown) (unknown) (no date) (unknown) (unknown) Position Sitting (un its unknown) (unknown) (unknown) (no date) (unknown) (unknown) Previous Visit Assessment: 'Judi is a 67-year-old female presenting for (units unknown) (unknown) (unknown) (no date) (unknown) (unknown) Previous pain treatments included: (units unknown) (unknown) (unknown) (no date) (unknown) (unknown) Psych: Appropr iate affect, answers questions appropriately (units unknown) (unknown) (unknown) (no date) (unknown) (unknown) Pulse 101 H (units unknown) (unknown) (unknown) (no date) (unknown) (unknown) Pulse Oximetry (%) 9 7 (units unknown) (unknown) (unknown) (no date) (unknown) (unknown) Pulse Source Monitor (units unknown) (unknown) (unknown) (no date) (unknown) (unknown) Qualifiers: (units unknown) (unknown) (unknown) (no date) (unknown) (unknown) Quality and ti alirio of pain: Back - sharp or dull, intermittent; Legs - hurt and (units unknown) (unknown) (unknown) (no date) (unknown) (unknown) LUISA?on?07/24?at ?14:50?Approved?by: ?Leonel?Luisa,?Clayton?on ?07/24/2022?at? (units unknown) (unknown) (unknown) (no date) (unknown) (unknown) ROS Narrative (units unknown) (unknown) (unknown) (no date) (unknown) (unknown) ROS Narrative: (unit s unknown) (unknown) (unknown) (no date) (unknown) (unknown) ROS (units unknown) (unknown) (unknown) (no date) (unknown) (unknown) Rash (units unknown) (unknown) (unknown) (no date) (unknown) (unknown) Reason For Visit (un its unknown) (unknown) (unknown) (no date) (unknown) (unknown) Red flag symptoms: ( units unknown) (unknown) (unknown) (no date) (unknown) (unknown) Reflex Right Left (u nits unknown) (unknown) (unknown) (no date) (unknown) (unknown) Reflexes: (units unknown) (unknown) (unknown) (no date) (unknown) (unknown) Relieving fact ors include: heat (units unknown) (unknown) (unknown) (no date) (unknown) (unknown) Respiratory: Non-labored breathing pattern on RA. No respiratory distress (units unknown) (unknown) (unknown) (no date) (unknown) (unknown) Reviewed?by:?J eff?Chof fel?RRA?Interpreted:?Luther eric?Luisa??on?07/24?at?14:49 (units unknown) (unknown) (unknown) (no date) (unknown) (unknown) Reviewed?by:?Johnathon lutz?Gonzalo yolanda,?M.D.?on?09/20/2022 ?at?14:57???Transcribe d?by:?CANNON?on (units unknown) (unknown) (unknown) (no date) (unknown) (unknown) S/P L5-S1 IL E SI 10/24/2022 (units unknown) (unknown) (unknown) (no date) (unknown) (unknown) S1 Achilles 1+ 1 (un its unknown) (unknown) (unknown) (no date) (unknown) (unknown) S1 Ankle Plantarflexion 5/5 5/5 (units unknown) (unknown) (unknown) (no date) (unknown) (unknown) Saddle anesthe kelby: denies (units unknown) (unknown) (unknown) (no date) (unknown) (unknown) Segment Action Right Left (units unknown) (unknown) (unknown) (no date) (unknown) (unknown) Segment Reflex Right Left (units unknown) (unknown) (unknown) (no date) (unknown) (unknown) Sensory -? Int act to light touch of bilateral lower extremities. Allodynia (units unknown) (unknown) (unknown) (no date) (unknown) (unknown) She has had so me weakness of bilateral lower extremities, R>L. She notes (units unknown) (unknown) (unknown) (no date) (unknown) (unknown) Signed By: <Electronically signed by Robin Morel MD> (units unknown) (unknown) (unknown) (no date) (unknown) (unknown) Signed (units unknown) (unknown) (unknown) (no date) (unknown) (unknown) Skin: No appre ciable rashes or skin breakdown (units unknown) (unknown) (unknown) (no date) (unknown) (unknown) Smoking Status : Never smoker (units unknown) (unknown) (unknown) (no date) (unknown) (unknown) Soft?tissues: (units unknown) (unknown) (unknown) (no date) (unknown) (unknown) Spinal stenosi s, lumbar region with neurogenic claudication (units unknown) (unknown) (unknown) (no date) (unknown) (unknown) Spinal?Cord: (units unknown) (unknown) (unknown) (no date) (unknown) (unknown) Standing: incr eased LBP (units unknown) (unknown) (unknown) (no date) (unknown) (unknown) Status: Acute (units unknown) (unknown) (unknown) (no date) (unknown) (unknown) Surgery: denies (uni ts unknown) (unknown) (unknown) (no date) (unknown) (unknown) T12-L1: (units unknown) (unknown) (unknown) (no date) (unknown) (unknown) T2?fast?spin?e cho?may? be?performed.?? (units unknown) (unknown) (unknown) (no date) (unknown) (unknown) TECHNIQUE: (units unknown) (unknown) (unknown) (no date) (unknown) (unknown) TECHNIQUE:?? (units unknown) (unknown) (unknown) (no date) (unknown) (unknown) Temp 98.1 F (units unknown) (unknown) (unknown) (no date) (unknown) (unknown) Temp Source Te mporal Artery Scan (units unknown) (unknown) (unknown) (no date) (unknown) (unknown) [facility] (units unknown) (unknown) (unknown) (no date) (unknown) (unknown) This note may have been all or partially generated using voice recognition (units unknown) (unknown) (unknown) (no date) (unknown) (unknown) Tobacco + Subs tance Use (units unknown) (unknown) (unknown) (no date) (unknown) (unknown) Tobacco Status (unit s unknown) (unknown) (unknown) (no date) (unknown) (unknown) Today I have r eviewed available medical information in the patient's medical (units unknown) (unknown) (unknown) (no date) (unknown) (unknown) Tylenol (units unknown) (unknown) (unknown) (no date) (unknown) (unknown) Upper Motor Ne uron Signs: (units unknown) (unknown) (unknown) (no date) (unknown) (unknown) Visit Reasons: FOLLOW UP ANJEL (units unknown) (unknown) (unknown) (no date) (unknown) (unknown) Vitals (units unknown) (unknown) (unknown) (no date) (unknown) (unknown) Walking: increased L BP (units unknown) (unknown) (unknown) (no date) (unknown) (unknown) [place] Prescription Monitoring Program ([employer]) was reviewed. (units unknown) (unknown) (unknown) (no date) (unknown) (unknown) We reviewed et iology, predisposing factor(s), natural course, imaging results as (units unknown) (unknown) (unknown) (no date) (unknown) (unknown) Weakness: denies (un its unknown) (unknown) (unknown) (no date) (unknown) (unknown) Weight 268 lb 4 oz ( units unknown) (unknown) (unknown) (no date) (unknown) (unknown) [History Confi rmed 11/18/22] (units unknown) (unknown) (unknown) (no date) (unknown) (unknown) acetaminophen 500 mg tablet (Tylenol Extra Strength) 500 mg PO Q6H PRN 10/16/22 (units unknown) (unknown) (unknown) (no date) (unknown) (unknown) albuterol sulf ate 90 mcg/actuation aerosol inhaler 2 puff inhalation Q6H PRN (units unknown) (unknown) (unknown) (no date) (unknown) (unknown) amitriptyline 10 mg tablet 10 mg PO BEDTIME 10/16/22 [History Confirmed (units unknown) (unknown) (unknown) (no date) (unknown) (unknown) and would like to try another ANJEL. We will schedule her for L4-5 interlaminar (units unknown) (unknown) (unknown) (no date) (unknown) (unknown) at?the?L5-S1?level. (units unknown) (unknown) (unknown) (no date) (unknown) (unknown) back to Dr. Wesley denson for further evaluation. (units unknown) (unknown) (unknown) (no date) (unknown) (unknown) benefits of va rious treatment options were discussed with the patient in great (units unknown) (unknown) (unknown) (no date) (unknown) (unknown) bowel/bladder dysfunction, and perineal numbness were discussed. The patient was (units unknown) (unknown) (unknown) (no date) (unknown) (unknown) cannot tolerat e physical therapy at the current time due to the intensity of the (units unknown) (unknown) (unknown) (no date) (unknown) (unknown) consider media l branch blocks and RFA.? Medrol Dosepak was also ordered to help (units unknown) (unknown) (unknown) (no date) (unknown) (unknown) cyclobenzaprin e 10 mg tablet 10 mg PO TID PRN 11/18/22 [History Confirmed (units unknown) (unknown) (unknown) (no date) (unknown) (unknown) d?facet?and?li gamentum ?flavum?hypertrophy.?? Mild?epidural?lipomato sis.??Moderate (units unknown) (unknown) (unknown) (no date) (unknown) (unknown) detail. (units unknown) (unknown) (unknown) (no date) (unknown) (unknown) diclofenac sod ium 75 mg tablet,delayed release 75 mg PO BID PRN 10/16/22 (units unknown) (unknown) (unknown) (no date) (unknown) (unknown) discomfort. We discussed options going forward including follow-up with (units unknown) (unknown) (unknown) (no date) (unknown) (unknown) enosis.??Mild? bilatera l?foraminal?stenosis. (units unknown) (unknown) (unknown) (no date) (unknown) (unknown) eral?foraminal ?stenosi s. (units unknown) (unknown) (unknown) (no date) (unknown) (unknown) erate?facet?an d?ligame ntum?flavum?hypertroph y.??Severe?canal?steno sis.??Moderate (units unknown) (unknown) (unknown) (no date) (unknown) (unknown) es?normal?sign al?and?s ize.?? (units unknown) (unknown) (unknown) (no date) (unknown) (unknown) et?and?ligamen jolly?flav um?hypertrophy.??Mild? canal?stenosis.??Sever e?bilateral?fo (units unknown) (unknown) (unknown) (no date) (unknown) (unknown) et?and?ligamen jolly?flav um?hypertrophy.??Mild? epidural?lipomatosis.? ?Mild?canal?st (units unknown) (unknown) (unknown) (no date) (unknown) (unknown) et?and?ligamen jolly?flav um?hypertrophy.??Moder ate?canal?stenosis.??M ild?bilat (units unknown) (unknown) (unknown) (no date) (unknown) (unknown) extremities.? Her pain is likely multifactorial with major components of (units unknown) (unknown) (unknown) (no date) (unknown) (unknown) foraminal?nerv e?root?c ompression.?Recommend? correlation?with?clini rashaad?symptoms?t (units unknown) (unknown) (unknown) (no date) (unknown) (unknown) further evalua tion of chronic low back pain with radiation down bilateral lower (units unknown) (unknown) (unknown) (no date) (unknown) (unknown) have occurred. If there are any questions, please contact the Medical Records (units unknown) (unknown) (unknown) (no date) (unknown) (unknown) hypertrophy?an d?epidur al?lipomatosis. (units unknown) (unknown) (unknown) (no date) (unknown) (unknown) increased LBP with standing/cooking which is worsening. She denies any other (units unknown) (unknown) (unknown) (no date) (unknown) (unknown) instructed to report to the Emergency department, if these symptoms occur. (units unknown) (unknown) (unknown) (no date) (unknown) (unknown) intravenous dr ug use, sustained glucocorticoid use, osteoporosis, or a focal (units unknown) (unknown) (unknown) (no date) (unknown) (unknown) loratadine 10 mg tablet (Allergy Relief (loratadine)) 10 mg PO DAILY 10/16/22 (units unknown) (unknown) (unknown) (no date) (unknown) (unknown) may occur. Occ asional wrong-word or 'sound-alike' substitutions may have (units unknown) (unknown) (unknown) (no date) (unknown) (unknown) medical changes. (un its unknown) (unknown) (unknown) (no date) (unknown) (unknown) meds. (units unknown) (unknown) (unknown) (no date) (unknown) (unknown) methylpredniso lone 4 mg tablets in a dose pack (Medrol (Domingo)) See Rx (units unknown) (unknown) (unknown) (no date) (unknown) (unknown) metoprolol suc cinate 25 mg tablet,extended release 24 hr 25 mg PO DAILY 10/16/22 (units unknown) (unknown) (unknown) (no date) (unknown) (unknown) morphine Aller gy (Mild, Verified 11/18/22 12:56) (units unknown) (unknown) (unknown) (no date) (unknown) (unknown) nd?L5?on?S1. (units unknown) (unknown) (unknown) (no date) (unknown) (unknown) negative, Hype ralgesia - negative (units unknown) (unknown) (unknown) (no date) (unknown) (unknown) neurogenic claudication, M54.16 - Radiculopathy, lumbar region (units unknown) (unknown) (unknown) (no date) (unknown) (unknown) neurological d eficit with progressive or disabling symptoms. (units unknown) (unknown) (unknown) (no date) (unknown) (unknown) ns.??Cholecyst ectomy?c lips. (units unknown) (unknown) (unknown) (no date) (unknown) (unknown) nt?arthropathy ?L4-L5?a nd?L5-S1.??No?vertebra l?body?compression?fra ctures.??No?jansen (units unknown) (unknown) (unknown) (no date) (unknown) (unknown) o?ascertain?re levance? of?this?finding.? (units unknown) (unknown) (unknown) (no date) (unknown) (unknown) occurred due t o the inherent limitations of voice recognition software. Please (units unknown) (unknown) (unknown) (no date) (unknown) (unknown) of Spinal Cord Injur y) (units unknown) (unknown) (unknown) (no date) (unknown) (unknown) omeprazole 20 mg capsule,delayed release 20 mg PO DAILY 10/16/22 [History (units unknown) (unknown) (unknown) (no date) (unknown) (unknown) or immunosuppr essive therapy, previous or current cancer diagnosis, history of (units unknown) (unknown) (unknown) (no date) (unknown) (unknown) pain. (units unknown) (unknown) (unknown) (no date) (unknown) (unknown) pin?echo?throu gh?the?l umbar?spine.??In?cases ?with?scoliosis,?addit ional?coronal? (units unknown) (unknown) (unknown) (no date) (unknown) (unknown) pregabalin 150 mg capsule 150 mg PO BID 10/16/22 [History Confirmed 11/18/22] (units unknown) (unknown) (unknown) (no date) (unknown) (unknown) racic?spine. (units unknown) (unknown) (unknown) (no date) (unknown) (unknown) radicular and axial pain.? She would likely benefit from an L5-S1 epidural (units unknown) (unknown) (unknown) (no date) (unknown) (unknown) raminal?stenos is?with? bilateral?L5?nerve?ghanshyam t?compression. (units unknown) (unknown) (unknown) (no date) (unknown) (unknown) read the note carefully and recognize, using context, where these substitutions (units unknown) (unknown) (unknown) (no date) (unknown) (unknown) record, includ ing relevant provider notes, laboratory work, and imaging. (units unknown) (unknown) (unknown) (no date) (unknown) (unknown) rmal?lumbar?lo rdosis.? ?3?mm?of?retrolisthesi s?of?L1?on?L2,?L2?on?L 3,?L3?on?L4,?a (units unknown) (unknown) (unknown) (no date) (unknown) (unknown) s.??Moderate?c anal?james nosis?at?L2-L3?and?L3- L4. (units unknown) (unknown) (unknown) (no date) (unknown) (unknown) scale and/or p ain interferes with ADLs. (units unknown) (unknown) (unknown) (no date) (unknown) (unknown) software. 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 lesions. ?? (units unknown) (unknown) (unknown) (no date) (unknown) (unknown) stability intact. (u nits unknown) (unknown) (unknown) (no date) (unknown) (unknown) steroid inject ion.? If she continues to have low back pain after this injection, (units unknown) (unknown) (unknown) (no date) (unknown) (unknown) therapeutic in jections and surgery. The risks, consequences, alternatives and (units unknown) (unknown) (unknown) (no date) (unknown) (unknown) to see if she has any further relief. Time she would like to avoid back surgery (units unknown) (unknown) (unknown) (no date) (unknown) (unknown) ures.??Mild?re active?s ignal?throughout?the?e ndplates?of?the?lumbar ?and?lower?tho (units unknown) (unknown) (unknown) (no date) (unknown) (unknown) visit. (units unknown) (unknown) (unknown) (no date) (unknown) (unknown) walking intact . Tandem gait normal without evidence of ataxia. Lower quarter (units unknown) (unknown) (unknown) (no date) (unknown) (unknown) was performed. Since that time she has not had any improvement in her pain. (units unknown) (unknown) (unknown) (no date) (unknown) (unknown) weak (units unknown) (unknown) (unknown) (no date) (unknown) (unknown) well as treatm ent options including medications, physical therapy/exercise, (units unknown) (unknown) (unknown) (no date) (unknown) (unknown) with sciatica Sciatica laterality: sciatica of left side Qualified Code(s): (units unknown) (unknown) (unknown) (no date) (unknown) (unknown) with short-ter m pain relief.' (units unknown) (unknown) Result panel 19 (unknown) (no date) (unknown) (unknown) (no value) (units unknown) (unknown) (unknown) (no date) (unknown) (unknown) [id number] (units unknown) (unknown) (unknown) (no date) (unknown) (unknown) 12/04/22 (units unknown) (unknown) (unknown) (no date) (unknown) (unknown) 10:39. (units unknown) (unknown) (unknown) (no date) (unknown) (unknown) [address] [place] [address] (un its unknown) (unknown) (unknown) (no date) (unknown) (unknown) Accession Numb er: [id number] (units unknown) (unknown) (unknown) (no date) (unknown) (unknown) Age/Sex: 67 / F Date of Service: (units unknown) (unknown) (unknown) (no date) (unknown) (unknown) [place] [address] (units unknown) (unknown) (unknown) (no date) (unknown) (unknown) Approved by: Luther Holder M.D. on 12/04/2022 at 12:17 (units unknown) (unknown) (unknown) (no date) (unknown) (unknown) COMPARISON: [facility], , PAIN L INTERLAMINAR/CAUDAL INJ, 10/24/2022, (units unknown) (unknown) (unknown) (no date) (unknown) (unknown) : 7 Acct:[id number] (units unknown) (unknown) (unknown) (no date) (unknown) (unknown) Dictated by: Luther Holder M.D. on 12/04/2022 at 12:17 (units unknown) (unknown) (unknown) (no date) (unknown) (unknown) FINDINGS: (units unknown) (unknown) (unknown) (no date) (unknown) (unknown) Fluoroscopic s pot filming was performed to verify placement of a spinal needle (units unknown) (unknown) (unknown) (no date) (unknown) (unknown) IMPRESSION: Intraprocedural examination within normal limits. (units unknown) (unknown) (unknown) (no date) (unknown) (unknown) INDICATIONS: L 4-5 ILESI (units unknown) (unknown) (unknown) (no date) (unknown) (unknown) [facility] (uni ts unknown) (unknown) (unknown) (no date) (unknown) (unknown) L4-L5 level, a s labeled on the films. Appropriate location of the needle tip (units unknown) (unknown) (unknown) (no date) (unknown) (unknown) Loc: RAD (units unknown) (unknown) (unknown) (no date) (unknown) (unknown) Ordering Provi jonah: Robin Morel MD (units unknown) (unknown) (unknown) (no date) (unknown) (unknown) PROCEDURE: HARITHA N L INTERLAMINAR/CAUDAL INJ (units unknown) (unknown) (unknown) (no date) (unknown) (unknown) Patient: Judi Aguilar MR#: [id number] (units unknown) (unknown) (unknown) (no date) (unknown) (unknown) Procedure: HARITHA N interlaminar/caudal inj (units unknown) (unknown) (unknown) (no date) (unknown) (unknown) Signed (units unknown) (unknown) (unknown) (no date) (unknown) (unknown) XRay Report (units unknown) (unknown) (unknown) (no date) (unknown) (unknown) at the (units unknown) (unknown) (unknown) (no date) (unknown) (unknown) confirmed by i njection of iodinated contrast. (units unknown) (unknown) (unknown) (no date) (unknown) (unknown) was (units unknown) (unknown) Result panel 20 (unknown) (no date) (unknown) (unknown) (no value) (units unknown) (unknown) (unknown) (no date) (unknown) (unknown) [id number] (units unknown) (unknown) (unknown) (no date) (unknown) (unknown) 12/04/22 1153 (units unknown) (unknown) (unknown) (no date) (unknown) (unknown) Age/Sex: 67 / F (uni ts unknown) (unknown) (unknown) (no date) (unknown) (unknown) Anesthesia: Local (u nits unknown) (unknown) (unknown) (no date) (unknown) (unknown) Ax3 (units unknown) (unknown) (unknown) (no date) (unknown) (unknown) Band-Aids appl ied to injection sites. (units unknown) (unknown) (unknown) (no date) (unknown) (unknown) Complications: None (units unknown) (unknown) (unknown) (no date) (unknown) (unknown) Consent: Follo wing review of allergies and potential side effects/complications, (units unknown) (unknown) (unknown) (no date) (unknown) (unknown) Contrast: Isovue 300 M (units unknown) (unknown) (unknown) (no date) (unknown) (unknown) : 7 Acct:[id number] (units unknown) (unknown) (unknown) (no date) (unknown) (unknown) Date of Servic e: 12/04/22 (units unknown) (unknown) (unknown) (no date) (unknown) (unknown) Date of proced ure: 12/04/22 (units unknown) (unknown) (unknown) (no date) (unknown) (unknown) Date/Time/Diagnoses (units unknown) (unknown) (unknown) (no date) (unknown) (unknown) EBL: less than 1 ml (units unknown) (unknown) (unknown) (no date) (unknown) (unknown) Focused Examination: (units unknown) (unknown) (unknown) (no date) (unknown) (unknown) Indications: Noelle regalado is presenting for treatment of lumbar radiculopathy with low (units unknown) (unknown) (unknown) (no date) (unknown) (unknown) Injectate: Dexamethasone 15 mg with 0.25% Bupivacaine 1.5 mL (units unknown) (unknown) (unknown) (no date) (unknown) (unknown) [place] [address] (units unknown) (unknown) (unknown) (no date) (unknown) (unknown) L4-5 Interlami kavita Epidural Steroid Injection (units unknown) (unknown) (unknown) (no date) (unknown) (unknown) Monitoring: NI BP, Pulse oximetry, 3 lead EKG (units unknown) (unknown) (unknown) (no date) (unknown) (unknown) Mood and affec t are normal (units unknown) (unknown) (unknown) (no date) (unknown) (unknown) Needle used: 1 8 G 3.5? Tuohy (units unknown) (unknown) (unknown) (no date) (unknown) (unknown) Patient: Judi Aguilar MR#: [id number] (units unknown) (unknown) (unknown) (no date) (unknown) (unknown) Physician: Ismael Morel (units unknown) (unknown) (unknown) (no date) (unknown) (unknown) Position: Prone (uni ts unknown) (unknown) (unknown) (no date) (unknown) (unknown) Post Procedure : Patient was taken to the recovery and monitored. The patient was (units unknown) (unknown) (unknown) (no date) (unknown) (unknown) Postoperative diagnosis: Same (units unknown) (unknown) (unknown) (no date) (unknown) (unknown) Preoperative diagnosis: Lumbar radiculopathy (units unknown) (unknown) (unknown) (no date) (unknown) (unknown) Procedure Note (unit s unknown) (unknown) (unknown) (no date) (unknown) (unknown) Procedure Notes (uni ts unknown) (unknown) (unknown) (no date) (unknown) (unknown) Procedure in d etail + Post-procedure care: (units unknown) (unknown) (unknown) (no date) (unknown) (unknown) Provider: Robin Morel MD (units unknown) (unknown) (unknown) (no date) (unknown) (unknown) Signed By:<Electronically signed by Robin Morel MD> (units unknown) (unknown) (unknown) (no date) (unknown) (unknown) Technique: The skin was prepped with chloraprep and then draped in a sterile (units unknown) (unknown) (unknown) (no date) (unknown) (unknown) Time of proced ure: 11:50 (units unknown) (unknown) (unknown) (no date) (unknown) (unknown) Total Fluorosc opy time (seconds): 13 (units unknown) (unknown) (unknown) (no date) (unknown) (unknown) Total sedation minutes: 0 (units unknown) (unknown) (unknown) (no date) (unknown) (unknown) Vital Signs: VSS (un its unknown) (unknown) (unknown) (no date) (unknown) (unknown) accessed with loss of resistance technique. Isovue 300M was then injected and (units unknown) (unknown) (unknown) (no date) (unknown) (unknown) back and leg pain. ( units unknown) (unknown) (unknown) (no date) (unknown) (unknown) control, the T uohy needle was guided into the L4-5 epidural space. The space was (units unknown) (unknown) (unknown) (no date) (unknown) (unknown) fashion. Time out was performed as per protocol. Oxygen applied via NC. Skin and (units unknown) (unknown) (unknown) (no date) (unknown) (unknown) including medi cations and physical therapy were reviewed with the patient. All (units unknown) (unknown) (unknown) (no date) (unknown) (unknown) including, but not necessarily limited to, infection, allergic reaction, local (units unknown) (unknown) (unknown) (no date) (unknown) (unknown) instructions w ere provided. Patient was asked to call in the event of worsening (units unknown) (unknown) (unknown) (no date) (unknown) (unknown) intravascular or intrathecal uptake. After negative aspiration, the above (units unknown) (unknown) (unknown) (no date) (unknown) (unknown) mentioned inje ctate was then slowly administered and the needle withdrawn. The (units unknown) (unknown) (unknown) (no date) (unknown) (unknown) nurse and plac ed in the patient's chart.? Additionally, other treatment options (units unknown) (unknown) (unknown) (no date) (unknown) (unknown) of lidocaine 1 %. Under AP, lateral and contralateral oblique fluoroscopic (units unknown) (unknown) (unknown) (no date) (unknown) (unknown) pain, fever, w eakness, numbness or bladder or bowel incontinence. (units unknown) (unknown) (unknown) (no date) (unknown) (unknown) patient expres sed no unusual discomfort or paresthesias during the injection. (units unknown) (unknown) (unknown) (no date) (unknown) (unknown) physician. Pat ient was stable upon discharge. Detailed post procedure (units unknown) (unknown) (unknown) (no date) (unknown) (unknown) possible , the patient indicated that they understood and agreed to (units unknown) (unknown) (unknown) (no date) (unknown) (unknown) proceed.? An i nformed consent document was signed by the patient, witnessed by a (units unknown) (unknown) (unknown) (no date) (unknown) (unknown) provided a Haritha n Log to continue to record the patient's response to the target (units unknown) (unknown) (unknown) (no date) (unknown) (unknown) questions were answered. Site was then marked. (units unknown) (unknown) (unknown) (no date) (unknown) (unknown) specific proce dure prior to the patient's follow-up visit with the referring (units unknown) (unknown) (unknown) (no date) (unknown) (unknown) subcutaneous structures of the needle entry site was then infiltrated with 3 mL (units unknown) (unknown) (unknown) (no date) (unknown) (unknown) the spread was consistent with the epidural space. There was no evidence for (units unknown) (unknown) (unknown) (no date) (unknown) (unknown) tissue breakdo wn, stroke, temporary or permanent nerve injury, paralysis, and (units unknown) (unknown) Result panel 21 (unknown) (no date) (unknown) (unknown) (no value) (units unknown) (unknown) (unknown) (no date) (unknown) (unknown) (0=absent, 1=s light response, 2=brisk/normal, 3=very brisk, 4=clonus) (units unknown) (unknown) (unknown) (no date) (unknown) (unknown) (segments are from the International Standards for Neurological Classification (units unknown) (unknown) (unknown) (no date) (unknown) (unknown) - Activity: Co ntinue activity as tolerated. [] (units unknown) (unknown) (unknown) (no date) (unknown) (unknown) - Chiropractor , acupuncture[] (units unknown) (unknown) (unknown) (no date) (unknown) (unknown) - Continues cl inician directed home exercise program including exercises learned (units unknown) (unknown) (unknown) (no date) (unknown) (unknown) - Education: C auda equina and associated symptoms, including motor weakness, (units unknown) (unknown) (unknown) (no date) (unknown) (unknown) - FADIR: Negat eileen bilaterally (units unknown) (unknown) (unknown) (no date) (unknown) (unknown) - Follow-up: [] (uni ts unknown) (unknown) (unknown) (no date) (unknown) (unknown) - Hip ROM is: Within normal limits (units unknown) (unknown) (unknown) (no date) (unknown) (unknown) - I discussed risks, benefits and side effects. Additionally, patient was (units unknown) (unknown) (unknown) (no date) (unknown) (unknown) - Imaging: No new imaging indicated at this time. [] (units unknown) (unknown) (unknown) (no date) (unknown) (unknown) - Interventional/Surgica l procedures: None indicated at this time. [] (units unknown) (unknown) (unknown) (no date) (unknown) (unknown) - Lumbar facet loading: Positive bilaterally (units unknown) (unknown) (unknown) (no date) (unknown) (unknown) - Medications: No new prescription at this time. Patient will continue current (units unknown) (unknown) (unknown) (no date) (unknown) (unknown) - Medications: acetaminophen, NSAIDS, neuropathics, muscle relaxants [] (units unknown) (unknown) (unknown) (no date) (unknown) (unknown) - Physical The rapy: Completed 6 week course in the last 6 months OR Patient (units unknown) (unknown) (unknown) (no date) (unknown) (unknown) - Physical therapy/modalities/DME : Patient will likely benefit from physical (units unknown) (unknown) (unknown) (no date) (unknown) (unknown) - Prescription provided and uptitration instructions given if necessary. [] (units unknown) (unknown) (unknown) (no date) (unknown) (unknown) - Previous [] on [] provided []% relief of pain for the expected duration of the (units unknown) (unknown) (unknown) (no date) (unknown) (unknown) - Referrals: N one indicated at this time. [] (units unknown) (unknown) (unknown) (no date) (unknown) (unknown) - SIJ provocat ion testing: Negative bilaterally (units unknown) (unknown) (unknown) (no date) (unknown) (unknown) - Straight Leg Raise: Positive for leg pain on the left (units unknown) (unknown) (unknown) (no date) (unknown) (unknown) [id number] (units unknown) (unknown) (unknown) (no date) (unknown) (unknown) 11/26/22 (units unknown) (unknown) (unknown) (no date) (unknown) (unknown) 1.?Multilevel? degenera tive?disc?and?facet?di sease,?as?well?as?liga mentum?flavum? (units unknown) (unknown) (unknown) (no date) (unknown) (unknown) 1.Limited?rang e?of?mot ion?and?multilevel?lum bar?spine?spondylosis, ?most?notably? (units unknown) (unknown) (unknown) (no date) (unknown) (unknown) 15:37??? (units unknown) (unknown) (unknown) (no date) (unknown) (unknown) 2.?Multilevel? canal?st enoses,?worst?at?L4-L5 ?where?there?is?severe ?canal?stenosi (units unknown) (unknown) (unknown) (no date) (unknown) (unknown) ,?14:34. (uni ts unknown) (unknown) (unknown) (no date) (unknown) (unknown) 3.?Multilevel? foramina l?stenoses,?worst?at?L 5-S1?where?there?is?as sociated?intra (units unknown) (unknown) (unknown) (no date) (unknown) (unknown) 4.??Left?iliop soas?mus ronald?atrophy.?? (units unknown) (unknown) (unknown) (no date) (unknown) (unknown) ? Inspection - ? No gross appendicular or axial deformities (units unknown) (unknown) (unknown) (no date) (unknown) (unknown) ? L5-S1 IL ANJEL ? 10/24/2022? no change? (units unknown) (unknown) (unknown) (no date) (unknown) (unknown) ? Palpation -n o tenderness to palpation (units unknown) (unknown) (unknown) (no date) (unknown) (unknown) ? ROM -lumbar extension limited due to pain (units unknown) (unknown) (unknown) (no date) (unknown) (unknown) ? Special tests (uni ts unknown) (unknown) (unknown) (no date) (unknown) (unknown) ?09/20/2022?at?15:01 (units unknown) (unknown) (unknown) (no date) (unknown) (unknown) ??5?lumbar?typ e?verteb ral?bodies?are?present ?by?plain?film.??There ?is?loss?of?no (units unknown) (unknown) (unknown) (no date) (unknown) (unknown) ??5?nonrib-viviana ring?bre tebrae?are?present.??3 ?mm?retrolisthesis?L2- L3,?L3-L4?and? (units unknown) (unknown) (unknown) (no date) (unknown) (unknown) ??5?views?of?t he?lumba r?spine?acquired,?incl uding?flexion?and?exte nsion?views.? (units unknown) (unknown) (unknown) (no date) (unknown) (unknown) ? Acetaminophen -denies (units unknown) (unknown) (unknown) (no date) (unknown) (unknown) ? Antidepressants -current (units unknown) (unknown) (unknown) (no date) (unknown) (unknown) ? Antiepileptics -current (units unknown) (unknown) (unknown) (no date) (unknown) (unknown) ? Mu scle Relaxants -cyclobenzaprine (units unknown) (unknown) (unknown) (no date) (unknown) (unknown) ? NS AIDs -current (units unknown) (unknown) (unknown) (no date) (unknown) (unknown) ? Op ioids -denies (units unknown) (unknown) (unknown) (no date) (unknown) (unknown) ? St eroids -denies (units unknown) (unknown) (unknown) (no date) (unknown) (unknown) ? To picals -denies (units unknown) (unknown) (unknown) (no date) (unknown) (unknown) ???Transcribed?by:?J C (units unknown) (unknown) (unknown) (no date) (unknown) (unknown) ??Conus?medull cade?ter minates?at?the?lower?L 1?level.??Visualized?c ord?demonstrat (units unknown) (unknown) (unknown) (no date) (unknown) (unknown) ??Marrow?is?of ?normal? overall?signal.??No?ac [place]?vertebral?body?com pression?fract (units unknown) (unknown) (unknown) (no date) (unknown) (unknown) ??Moderate?dis c?desicc ation.??Mild?disc?heig ht?loss?and?diffuse?di sc?bulge.??Mil (units unknown) (unknown) (unknown) (no date) (unknown) (unknown) ??Moderate?dis c?desicc ation.??Mild?disc?heig ht?loss?and?diffuse?di sc?bulge.??Mod (units unknown) (unknown) (unknown) (no date) (unknown) (unknown) ??Moderate?dis c?height ?loss?and?desiccation. ??Mild?diffuse?disc?bu lge.??Mild?fac (units unknown) (unknown) (unknown) (no date) (unknown) (unknown) ??Moderate?dis c?height ?loss?and?desiccation. ??No?significant?canal ,?or?foraminal (units unknown) (unknown) (unknown) (no date) (unknown) (unknown) ??No?paraverte bral?mas ses.??There?is?asymmet david?left?ileo?psoas?at rophy. (units unknown) (unknown) (unknown) (no date) (unknown) (unknown) ??Overlying?israel wel?gas? pattern?is?normal.??No ?suspicious?soft?tissu e?calcificatio (units unknown) (unknown) (unknown) (no date) (unknown) (unknown) ??[facility],?CR,?XR?LUMBAR?SPIN E?WITH?FLEXION?EXTENSI ON?5?VIEWS,?1/ (units unknown) (unknown) (unknown) (no date) (unknown) (unknown) ??There?is?sanchez ited?ran ge?of?motion,?with?pre served?normal?alignmen t.?? (units unknown) (unknown) (unknown) (no date) (unknown) (unknown) ?at?the?L5-S1? level.?? Moderate?facet?petros (units unknown) (unknown) (unknown) (no date) (unknown) (unknown) ?canal?stenosi s.??Mode rate?bilateral?foramin al?stenosis. (units unknown) (unknown) (unknown) (no date) (unknown) (unknown) ?stenosis. (units unknown) (unknown) (unknown) (no date) (unknown) (unknown) ?subarticular? foramina l?stenosis?bilaterally . (units unknown) (unknown) (unknown) (no date) (unknown) (unknown) Age/Sex: 67 / F Date of Service: (units unknown) (unknown) (unknown) (no date) (unknown) (unknown) Aggravating fa ctors include: standing, walking (units unknown) (unknown) (unknown) (no date) (unknown) (unknown) Alignment?and? [place]: (units unknown) (unknown) (unknown) (no date) (unknown) (unknown) All other syst ems reviewed and are unremarkable except as noted in HPI. (units unknown) (unknown) (unknown) (no date) (unknown) (unknown) Allergies (units unknown) (unknown) (unknown) (no date) (unknown) (unknown) Amitriptyline 10 mg (units unknown) (unknown) (unknown) (no date) (unknown) (unknown) [place] [address] (units unknown) (unknown) (unknown) (no date) (unknown) (unknown) Assessment + Plan (u nits unknown) (unknown) (unknown) (no date) (unknown) (unknown) Assessment: (units unknown) (unknown) (unknown) (no date) (unknown) (unknown) Attending Dr: Robin Morel MD (units unknown) (unknown) (unknown) (no date) (unknown) (unknown) Erika's Caitlin ngoing Downgoing (units unknown) (unknown) (unknown) (no date) (unknown) (unknown) Bilateral?hip? arthropl asties?incompletely?vi sualized. (units unknown) (unknown) (unknown) (no date) (unknown) (unknown) Bone?Marrow: (units unknown) (unknown) (unknown) (no date) (unknown) (unknown) Bones: (units unknown) (unknown) (unknown) (no date) (unknown) (unknown) Bowel and blad jonah: Chronic bladder incontinence (units unknown) (unknown) (unknown) (no date) (unknown) (unknown) COMPARISON: (units unknown) (unknown) (unknown) (no date) (unknown) (unknown) COMPARISON:??None. ( units unknown) (unknown) (unknown) (no date) (unknown) (unknown) Cardiovascular : No edema or cyanosis. 2+ peripheral pulses (units unknown) (unknown) (unknown) (no date) (unknown) (unknown) Chart review: (units unknown) (unknown) (unknown) (no date) (unknown) (unknown) Chief Complaint (uni ts unknown) (unknown) (unknown) (no date) (unknown) (unknown) Chief Complain t: Follow-up (units unknown) (unknown) (unknown) (no date) (unknown) (unknown) Chronic, inter mittent LBP with radiation to b/l legs without inciting event. (units unknown) (unknown) (unknown) (no date) (unknown) (unknown) Clonus None None (un its unknown) (unknown) (unknown) (no date) (unknown) (unknown) Conservative management includes: (units unknown) (unknown) (unknown) (no date) (unknown) (unknown) Continue [facility] physical therapy. [] (units unknown) (unknown) (unknown) (no date) (unknown) (unknown) Continue home exercise program. [] (units unknown) (unknown) (unknown) (no date) (unknown) (unknown) Current VAS: []/10 ( units unknown) (unknown) (unknown) (no date) (unknown) (unknown) Cyclobenzaprin e 10 mg TID (units unknown) (unknown) (unknown) (no date) (unknown) (unknown) : 7 Acct:[id number] (units unknown) (unknown) (unknown) (no date) (unknown) (unknown) Denies recent trauma, fever or weight loss of unknown origin, immunocompromise (units unknown) (unknown) (unknown) (no date) (unknown) (unknown) Dept at . (units unknown) (unknown) (unknown) (no date) (unknown) (unknown) Details: (units unknown) (unknown) (unknown) (no date) (unknown) (unknown) Diclofenac 75 mg (un its unknown) (unknown) (unknown) (no date) (unknown) (unknown) Documented By: Robin Morel MD 01/01/23 1142 (units unknown) (unknown) (unknown) (no date) (unknown) (unknown) Draft (units unknown) (unknown) (unknown) (no date) (unknown) (unknown) ANJEL.? She note s no change in her discomfort.? We discussed options going forward (units unknown) (unknown) (unknown) (no date) (unknown) (unknown) Exam Narrative (unit s unknown) (unknown) (unknown) (no date) (unknown) (unknown) Exam Narrative: (uni ts unknown) (unknown) (unknown) (no date) (unknown) (unknown) Exam (units unknown) (unknown) (unknown) (no date) (unknown) (unknown) FINDINGS:?? (units unknown) (unknown) (unknown) (no date) (unknown) (unknown) Flexion/extension: ( units unknown) (unknown) (unknown) (no date) (unknown) (unknown) Gait/Station - Non-antalgic gait. Heel (L5 strength) and toe (S1 strength) (units unknown) (unknown) (unknown) (no date) (unknown) (unknown) General: Well-nourished, well-developed, female in no acute distress (units unknown) (unknown) (unknown) (no date) (unknown) (unknown) HPI (units unknown) (unknown) (unknown) (no date) (unknown) (unknown) IMPRESSION:?? (units unknown) (unknown) (unknown) (no date) (unknown) (unknown) INDICATIONS:?? lumbar?p ain (units unknown) (unknown) (unknown) (no date) (unknown) (unknown) INDICATIONS:??pain ( units unknown) (unknown) (unknown) (no date) (unknown) (unknown) Image?quality: ??Excell ent.?? (units unknown) (unknown) (unknown) (no date) (unknown) (unknown) Initial Onset/ Context of pain: Lona is a 67-year-old female with a history of (units unknown) (unknown) (unknown) (no date) (unknown) (unknown) Injections: (units unknown) (unknown) (unknown) (no date) (unknown) (unknown) Intake (units unknown) (unknown) (unknown) (no date) (unknown) (unknown) Interval History: (u nits unknown) (unknown) (unknown) (no date) (unknown) (unknown) Intervention:?Date:?Outcome:?? ? (units unknown) (unknown) (unknown) (no date) (unknown) (unknown) JUSTIFICATION OF MEDICAL NECESSITY (units unknown) (unknown) (unknown) (no date) (unknown) (unknown) L-spine/T-spin e/C-spin e MRI ordered to better delineate the anatomy and help (units unknown) (unknown) (unknown) (no date) (unknown) (unknown) L1-L2: (units unknown) (unknown) (unknown) (no date) (unknown) (unknown) L2 Hip Flexion 5/5 5/5? (units unknown) (unknown) (unknown) (no date) (unknown) (unknown) L2-L3: (units unknown) (unknown) (unknown) (no date) (unknown) (unknown) L3 Knee Extens ion 5/5 5/5 (units unknown) (unknown) (unknown) (no date) (unknown) (unknown) L3-L4: (units unknown) (unknown) (unknown) (no date) (unknown) (unknown) L4 Ankle Dorsi flexion 5/5 5/5 (units unknown) (unknown) (unknown) (no date) (unknown) (unknown) L4 Patella 1+ 1 (uni ts unknown) (unknown) (unknown) (no date) (unknown) (unknown) L4,?and?L5?on?S1. (u nits unknown) (unknown) (unknown) (no date) (unknown) (unknown) L4-5 IL ANJEL 12/05/19 23 (units unknown) (unknown) (unknown) (no date) (unknown) (unknown) L4-L5: (units unknown) (unknown) (unknown) (no date) (unknown) (unknown) L5 Long Toe Ex tension 5/5 5/5 (units unknown) (unknown) (unknown) (no date) (unknown) (unknown) L5-S1.??Multil evel?dis c?height?loss?with?end plate?sclerosis?and?sp urring,?severe (units unknown) (unknown) (unknown) (no date) (unknown) (unknown) L5-S1: (units unknown) (unknown) (unknown) (no date) (unknown) (unknown) Loc: PAIN (units unknown) (unknown) (unknown) (no date) (unknown) (unknown) Low back pain (units unknown) (unknown) (unknown) (no date) (unknown) (unknown) Lumbar radiculopathy (units unknown) (unknown) (unknown) (no date) (unknown) (unknown) Lyrica 150 mg (units unknown) (unknown) (unknown) (no date) (unknown) (unknown) MSK: System re viewed and no additional complaints, except as documented. (units unknown) (unknown) (unknown) (no date) (unknown) (unknown) Medical Histor y (Updated 11/18/22 @ 13:20 by Robin Morel MD) (units unknown) (unknown) (unknown) (no date) (unknown) (unknown) Medications: (units unknown) (unknown) (unknown) (no date) (unknown) (unknown) Motor (units unknown) (unknown) (unknown) (no date) (unknown) (unknown) Musculoskeletal: (un its unknown) (unknown) (unknown) (no date) (unknown) (unknown) Neuro: System reviewed and no additional complaints, except as documented. (units unknown) (unknown) (unknown) (no date) (unknown) (unknown) Neurologic: (units unknown) (unknown) (unknown) (no date) (unknown) (unknown) Noncontrast?sa gittal?T 1?spin?echo?and?T2?fas t?echo,?sagittal?STIR, ?and?T2?fast?s (units unknown) (unknown) (unknown) (no date) (unknown) (unknown) Not indicated at this time. [] (units unknown) (unknown) (unknown) (no date) (unknown) (unknown) Numbness/Tingl ing: b/l posterior thighs (units unknown) (unknown) (unknown) (no date) (unknown) (unknown) Objective Data (unit s unknown) (unknown) (unknown) (no date) (unknown) (unknown) Objective Data: (uni ts unknown) (unknown) (unknown) (no date) (unknown) (unknown) Onset/Context of haritha n: (units unknown) (unknown) (unknown) (no date) (unknown) (unknown) Onset: insidious (un its unknown) (unknown) (unknown) (no date) (unknown) (unknown) Other: denies (units unknown) (unknown) (unknown) (no date) (unknown) (unknown) PFSH (units unknown) (unknown) (unknown) (no date) (unknown) (unknown) PROCEDURE:??MR ?LUMBAR? SPINE?WITHOUT?CONTRAST (units unknown) (unknown) (unknown) (no date) (unknown) (unknown) PROCEDURE:??XR ?LUMBAR? SPINE?WITH?FLEXION?EXT ENSION?5?VIEWS (units unknown) (unknown) (unknown) (no date) (unknown) (unknown) PT: [place] [facility] 6 visits in the last 6 months (units unknown) (unknown) (unknown) (no date) (unknown) (unknown) Pain Visit (units unknown) (unknown) (unknown) (no date) (unknown) (unknown) Pain location/Radiation: low back pain radiating to b/l posterior thighs (units unknown) (unknown) (unknown) (no date) (unknown) (unknown) Pain ratin /10 today, 9/10 at worst (units unknown) (unknown) (unknown) (no date) (unknown) (unknown) Paraspinous?So ft?Tissu es: (units unknown) (unknown) (unknown) (no date) (unknown) (unknown) Past medical, surgical, social, and family history is unchanged from prior (units unknown) (unknown) (unknown) (no date) (unknown) (unknown) Patient was erickson chi seen here on 12/04/2022 at which time L4-5 interlaminar ANJEL was (units unknown) (unknown) (unknown) (no date) (unknown) (unknown) Patient will r eturn for []. Risks and benefits were discussed. (units unknown) (unknown) (unknown) (no date) (unknown) (unknown) Patient's pain has been present for >6 weeks and is an average of >6/10 on 0-10 (units unknown) (unknown) (unknown) (no date) (unknown) (unknown) Patient: Judi Aguilar MR#: [id number] (units unknown) (unknown) (unknown) (no date) (unknown) (unknown) [place] Clarence martel (Verified 11/18/22 12:56) (units unknown) (unknown) (unknown) (no date) (unknown) (unknown) Pertinent medi cations include: (units unknown) (unknown) (unknown) (no date) (unknown) (unknown) Plan (units unknown) (unknown) (unknown) (no date) (unknown) (unknown) Plan/Recommendations : (units unknown) (unknown) (unknown) (no date) (unknown) (unknown) Prescriptions Written: [] (units unknown) (unknown) (unknown) (no date) (unknown) (unknown) Previous Visit Assessment: Lona follow-up status post L5-S1 interlaminar (units unknown) (unknown) (unknown) (no date) (unknown) (unknown) Previous pain treatments included: (units unknown) (unknown) (unknown) (no date) (unknown) (unknown) Psych: Appropr iate affect, answers questions appropriately (units unknown) (unknown) (unknown) (no date) (unknown) (unknown) Quality and ti alirio of pain: Back - sharp or dull, intermittent; Legs - hurt and (units unknown) (unknown) (unknown) (no date) (unknown) (unknown) LUISA?on?07/24?at ?14:50?Approved?by: ?Leonel?Luisa?Clayton?on ?07/24/2022?at? (units unknown) (unknown) (unknown) (no date) (unknown) (unknown) ROS Narrative (units unknown) (unknown) (unknown) (no date) (unknown) (unknown) ROS Narrative: (unit s unknown) (unknown) (unknown) (no date) (unknown) (unknown) ROS (units unknown) (unknown) (unknown) (no date) (unknown) (unknown) Rash (units unknown) (unknown) (unknown) (no date) (unknown) (unknown) Reason For Visit (un its unknown) (unknown) (unknown) (no date) (unknown) (unknown) Red flag symptoms: ( units unknown) (unknown) (unknown) (no date) (unknown) (unknown) Reflex Right Left (u nits unknown) (unknown) (unknown) (no date) (unknown) (unknown) Reflexes: (units unknown) (unknown) (unknown) (no date) (unknown) (unknown) Relieving fact ors include: heat (units unknown) (unknown) (unknown) (no date) (unknown) (unknown) Respiratory: Non-labored breathing pattern on RA. No respiratory distress (units unknown) (unknown) (unknown) (no date) (unknown) (unknown) Reviewed?by:?J eff?Chof fel?RRA?Interpreted:?Luther eric?Luisa??on?07/24?at?14:49 (units unknown) (unknown) (unknown) (no date) (unknown) (unknown) Reviewed?by:?Johnathon lutz?Gonzalo yolanda,?M.D.?on?09/20/2022 ?at?14:57???Transcribe d?by:?CANNON?on (units unknown) (unknown) (unknown) (no date) (unknown) (unknown) S1 Achilles 1+ 1 (un its unknown) (unknown) (unknown) (no date) (unknown) (unknown) S1 Ankle Plantarflexion 5/5 5/5 (units unknown) (unknown) (unknown) (no date) (unknown) (unknown) Saddle anesthe kelby: denies (units unknown) (unknown) (unknown) (no date) (unknown) (unknown) Segment Action Right Left (units unknown) (unknown) (unknown) (no date) (unknown) (unknown) Segment Reflex Right Left (units unknown) (unknown) (unknown) (no date) (unknown) (unknown) Sensory -? Int act to light touch of bilateral lower extremities. Allodynia (units unknown) (unknown) (unknown) (no date) (unknown) (unknown) Signed By: (units unknown) (unknown) (unknown) (no date) (unknown) (unknown) Skin: No appre ciable rashes or skin breakdown (units unknown) (unknown) (unknown) (no date) (unknown) (unknown) Smoking Status : Never smoker (units unknown) (unknown) (unknown) (no date) (unknown) (unknown) Soft?tissues: (units unknown) (unknown) (unknown) (no date) (unknown) (unknown) Spinal stenosi s, lumbar region with neurogenic claudication (units unknown) (unknown) (unknown) (no date) (unknown) (unknown) Spinal?Cord: (units unknown) (unknown) (unknown) (no date) (unknown) (unknown) Standing: incr eased LBP (units unknown) (unknown) (unknown) (no date) (unknown) (unknown) Surgery: denies (uni ts unknown) (unknown) (unknown) (no date) (unknown) (unknown) T12-L1: (units unknown) (unknown) (unknown) (no date) (unknown) (unknown) T2?fast?spin?e cho?may? be?performed.?? (units unknown) (unknown) (unknown) (no date) (unknown) (unknown) TECHNIQUE: (units unknown) (unknown) (unknown) (no date) (unknown) (unknown) TECHNIQUE:?? (units unknown) (unknown) (unknown) (no date) (unknown) (unknown) [facility] (units unknown) (unknown) (unknown) (no date) (unknown) (unknown) This note may have been all or partially generated using voice recognition (units unknown) (unknown) (unknown) (no date) (unknown) (unknown) Tobacco + Subs tance Use (units unknown) (unknown) (unknown) (no date) (unknown) (unknown) Tobacco Status (unit s unknown) (unknown) (unknown) (no date) (unknown) (unknown) Today I have r eviewed available medical information in the patient's medical (units unknown) (unknown) (unknown) (no date) (unknown) (unknown) Tylenol (units unknown) (unknown) (unknown) (no date) (unknown) (unknown) Upper Motor Ne uron Signs: (units unknown) (unknown) (unknown) (no date) (unknown) (unknown) Visit Reasons: anjel f /u (units unknown) (unknown) (unknown) (no date) (unknown) (unknown) Walking: increased L BP (units unknown) (unknown) (unknown) (no date) (unknown) (unknown) [place] Prescription Monitoring Program ([employer]) was reviewed. (units unknown) (unknown) (unknown) (no date) (unknown) (unknown) We reviewed et iology, predisposing factor(s), natural course, imaging results as (units unknown) (unknown) (unknown) (no date) (unknown) (unknown) Weakness: denies (un its unknown) (unknown) (unknown) (no date) (unknown) (unknown) X-ray has been performed which is consistent with lumbar spondylosis, most (units unknown) (unknown) (unknown) (no date) (unknown) (unknown) at?the?L5-S1?level. (units unknown) (unknown) (unknown) (no date) (unknown) (unknown) benefits of va rious treatment options were discussed with the patient in great (units unknown) (unknown) (unknown) (no date) (unknown) (unknown) bowel/bladder dysfunction, and perineal numbness were discussed. The patient was (units unknown) (unknown) (unknown) (no date) (unknown) (unknown) cannot tolerat e physical therapy at the current time due to the intensity of the (units unknown) (unknown) (unknown) (no date) (unknown) (unknown) chronic low ba ck pain, lumbar radiculopathy, lumbar spinal stenosis with (units unknown) (unknown) (unknown) (no date) (unknown) (unknown) d?facet?and?li gamentum ?flavum?hypertrophy.?? Mild?epidural?lipomato sis.??Moderate (units unknown) (unknown) (unknown) (no date) (unknown) (unknown) detail. (units unknown) (unknown) (unknown) (no date) (unknown) (unknown) enosis.??Mild? bilatera l?foraminal?stenosis. (units unknown) (unknown) (unknown) (no date) (unknown) (unknown) erate?facet?an d?ligame ntum?flavum?hypertroph y.??Severe?canal?steno sis.??Moderate (units unknown) (unknown) (unknown) (no date) (unknown) (unknown) es?normal?sign al?and?s ize.?? (units unknown) (unknown) (unknown) (no date) (unknown) (unknown) et?and?ligamen jolly?flav um?hypertrophy.??Mild? canal?stenosis.??Sever e?bilate (units unknown) (unknown) (unknown) (no date) (unknown) (unknown) et?and?ligamen jolly?flav um?hypertrophy.??Mild? epidural?lipomatosis.? ?Mild?canal?st (units unknown) (unknown) (unknown) (no date) (unknown) (unknown) et?and?ligamen jolly?flav um?hypertrophy.??Moder ate?canal?stenosis.??M ild?bilateral? (units unknown) (unknown) (unknown) (no date) (unknown) (unknown) evaluation of low back and leg pain. (units unknown) (unknown) (unknown) (no date) (unknown) (unknown) foraminal?nerv e?root?c ompression.?Recommend? correlation?with?clini rashaad?symptoms?t (units unknown) (unknown) (unknown) (no date) (unknown) (unknown) foraminal?stenosis. (units unknown) (unknown) (unknown) (no date) (unknown) (unknown) have occurred. If there are any questions, please contact the Medical Records (units unknown) (unknown) (unknown) (no date) (unknown) (unknown) hypertrophy?an d?epidur al?lipomatosis. (units unknown) (unknown) (unknown) (no date) (unknown) (unknown) improved sleep , improved mobility, etc. (units unknown) (unknown) (unknown) (no date) (unknown) (unknown) in PT. [] (units unknown) (unknown) (unknown) (no date) (unknown) (unknown) including foll ow-up with Dr. Licona, her spine surgeon.? Also discussed (units unknown) (unknown) (unknown) (no date) (unknown) (unknown) instructed to report to the Emergency department, if these symptoms occur. (units unknown) (unknown) (unknown) (no date) (unknown) (unknown) instructed to stop if any side effects. [] (units unknown) (unknown) (unknown) (no date) (unknown) (unknown) intravenous dr ug use, sustained glucocorticoid use, osteoporosis, or a focal (units unknown) (unknown) (unknown) (no date) (unknown) (unknown) local anesthet ic. During that time patient able to participate in ADLs, had (units unknown) (unknown) (unknown) (no date) (unknown) (unknown) may occur. Occ asional wrong-word or 'sound-alike' substitutions may have (units unknown) (unknown) (unknown) (no date) (unknown) (unknown) meds. [] (units unknown) (unknown) (unknown) (no date) (unknown) (unknown) morphine Aller gy (Mild, Verified 11/18/22 12:56) (units unknown) (unknown) (unknown) (no date) (unknown) (unknown) negative, Hype ralgesia - negative (units unknown) (unknown) (unknown) (no date) (unknown) (unknown) neurogenic claudication and lumbar facet arthropathy who presents for further (units unknown) (unknown) (unknown) (no date) (unknown) (unknown) neurological d eficit with progressive or disabling symptoms. (units unknown) (unknown) (unknown) (no date) (unknown) (unknown) ns.??Cholecyst ectomy?c lips. (units unknown) (unknown) (unknown) (no date) (unknown) (unknown) nt?arthropathy ?L4-L5?a nd?L5-S1.??No?vertebra l?body?compression?fra ctures.??No?jansen (units unknown) (unknown) (unknown) (no date) (unknown) (unknown) o?ascertain?re levance? of?this?finding.? (units unknown) (unknown) (unknown) (no date) (unknown) (unknown) occurred due t o the inherent limitations of voice recognition software. Please (units unknown) (unknown) (unknown) (no date) (unknown) (unknown) of Spinal Cord Injur y) (units unknown) (unknown) (unknown) (no date) (unknown) (unknown) or immunosuppr essive therapy, previous or current cancer diagnosis, history of (units unknown) (unknown) (unknown) (no date) (unknown) (unknown) pain. [] (units unknown) (unknown) (unknown) (no date) (unknown) (unknown) performed. Sin ce that time (units unknown) (unknown) (unknown) (no date) (unknown) (unknown) performing an ANJEL at the L4-5 level to see if she has any further relief.? Time (units unknown) (unknown) (unknown) (no date) (unknown) (unknown) pin?echo?throu gh?the?l umbar?spine.??In?cases ?with?scoliosis,?addit ional?coronal? (units unknown) (unknown) (unknown) (no date) (unknown) (unknown) racic?spine. (units unknown) (unknown) (unknown) (no date) (unknown) (unknown) ral?foraminal? stenosis ?with?bilateral?L5?ner ve?root?compression. (units unknown) (unknown) (unknown) (no date) (unknown) (unknown) read the note carefully and recognize, using context, where these substitutions (units unknown) (unknown) (unknown) (no date) (unknown) (unknown) record, includ ing relevant provider notes, laboratory work, and imaging. (units unknown) (unknown) (unknown) (no date) (unknown) (unknown) rmal?lumbar?lo rdosis.? ?3?mm?of?retrolisthesi s?of?L1?on?L2,?L2?on?L 3,?L3?on? (units unknown) (unknown) (unknown) (no date) (unknown) (unknown) s.??Moderate?c anal?james nosis?at?L2-L3?and?L3- L4. (units unknown) (unknown) (unknown) (no date) (unknown) (unknown) scale and/or p ain interferes with ADLs. (units unknown) (unknown) (unknown) (no date) (unknown) (unknown) schedule her f or L4-5 interlaminar ANJEL.? If she continues to have symptoms after (units unknown) (unknown) (unknown) (no date) (unknown) (unknown) severe at the L5-S1 level.? MRI concerning for multilevel central canal (units unknown) (unknown) (unknown) (no date) (unknown) (unknown) she would like to avoid back surgery and would like to try another ANJEL.? We will (units unknown) (unknown) (unknown) (no date) (unknown) (unknown) software. 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 lesions. ?? (units unknown) (unknown) (unknown) (no date) (unknown) (unknown) stability intact. (u nits unknown) (unknown) (unknown) (no date) (unknown) (unknown) stenosis at L5 -S1.? She is seen by Dr. Licona with Orthopedic spine surgery and (units unknown) (unknown) (unknown) (no date) (unknown) (unknown) stenosis, wors e at L4-5 and L5-S1.? There is also bilateral neural foraminal (units unknown) (unknown) (unknown) (no date) (unknown) (unknown) the injection, we will refer her back to Dr. Licona for further evaluation.' (units unknown) (unknown) (unknown) (no date) (unknown) (unknown) therapeutic in jections and surgery. The risks, consequences, alternatives and (units unknown) (unknown) (unknown) (no date) (unknown) (unknown) therapy. ?A re ferral was provided for the patient. [] (units unknown) (unknown) (unknown) (no date) (unknown) (unknown) ures.??Mild?re active?s ignal?throughout?the?e ndplates?of?the?lumbar ?and?lower?tho (units unknown) (unknown) (unknown) (no date) (unknown) (unknown) visit. (units unknown) (unknown) (unknown) (no date) (unknown) (unknown) wait for surge ry until after consultation with pain management.' (units unknown) (unknown) (unknown) (no date) (unknown) (unknown) walking intact . Tandem gait normal without evidence of ataxia. Lower quarter (units unknown) (unknown) (unknown) (no date) (unknown) (unknown) was felt to be a surgical candidate for laminectomy at L4-5.? Patient elected to (units unknown) (unknown) (unknown) (no date) (unknown) (unknown) weak (units unknown) (unknown) (unknown) (no date) (unknown) (unknown) well as treatm ent options including medications, physical therapy/exercise, (units unknown) (unknown) (unknown) (no date) (unknown) (unknown) with future tr eatment planning. [] (units unknown) (unknown) Social History date description facility 2022-10-16 00:00 Never smoked tobacco (finding) [facility] 2022-11-14 00:00 Never smoked tobacco (finding) [facility] Vital Signs date measurement value units 2022-10-16 00:00 BMI 40.8 kg/m2 2022-10-16 00:00 BP_diastolic 90 mmHg 2022-10-16 00:00 BP_systolic 156 mmHg 2022-10-16 00:00 heart_rate 86 /min 2022-10-16 00:00 height_metric 170.18 cm 2022-10-16 00:00 height_standard 67 in 2022-10-16 00:00 o2_saturation 96 % 2022-10-16 00:00 temperature_metric 36.89 C 2022-10-16 00:00 temperature_standard 98.4 F 2022-10-16 00:00 weight_metric 118.38 kg 2022-10-16 00:00 weight_standard 260.98 lb 2022-10-24 00:00 BP_diastolic 65 mmHg 2022-10-24 00:00 BP_systolic 150 mmHg 2022-10-24 00:00 heart_rate 86 /min 2022-10-24 00:00 o2_saturation 96 % 2022-10-24 00:00 respiration_rate 18 /min 2022-10-24 00:00 temperature_metric 36.11 C 2022-10-24 00:00 temperature_standard 97 F 2022-11-18 00:00 BMI 42.0 kg/m2 2022-11-18 00:00 BP_diastolic 78 mmHg 2022-11-18 00:00 BP_systolic 155 mmHg 2022-11-18 00:00 heart_rate 101 /min 2022-11-18 00:00 height_metric 170.18 cm 2022-11-18 00:00 height_standard 67 in 2022-11-18 00:00 o2_saturation 97 % 2022-11-18 00:00 temperature_metric 36.72 C 2022-11-18 00:00 temperature_standard 98.1 F 2022-11-18 00:00 weight_metric 121.67 kg 2022-11-18 00:00 weight_standard 268.24 lb 2022-12-04 00:00 BP_diastolic 65 mmHg 2022-12-04 00:00 BP_systolic 137 mmHg 2022-12-04 00:00 heart_rate 90 /min 2022-12-04 00:00 o2_saturation 96 % 2022-12-04 00:00 respiration_rate 18 /min 2022-12-04 00:00 temperature_metric 36.11 C 2022-12-04 00:00 temperature_standard 97 F
[2023-01-05 16:32] LABS: ALBUMIN 3.9 g/dL (3.2-5.5); ALBUMIN/GLOBULIN RATIO 1.2 (1.0-2.2); BILIRUBIN,TOTAL 0.7 mg/dL (0.2-1.0); CALCIUM 10.5 mg/dL (8.5-10.3); CREATININE 3.3 mg/dL (0.4-1.0); POTASSIUM 4.1 mmol/L (3.5-5.0); TOTAL PROTEIN 7.2 g/dL (6.7-8.2)
--- NOTE | 2023-01-05 16:42 | XRAY Report ---
PROCEDURE: Chest 1 View X-Ray INDICATIONS: Chest Pain TECHNIQUE: One view of the chest was acquired. COMPARISON: None. FINDINGS: Surgical changes and devices: None. Lungs and pleura: No pleural effusions or pneumothorax. Lungs are clear. Mediastinum: Mediastinal contours appear normal. Heart size is normal. Bones and chest wall: No suspicious bony lesions. Overlying soft tissues appear unremarkable. IMPRESSION: No acute cardiopulmonary process. Reviewed by: Brando Rodriguez on 01/05/2023 3:41 PM MIN Approved by: Brando Rodriguez on 01/05/2023 3:41 PM AKSUNIL Station ID: [id number]
[2023-01-05 16:43] LABS: BAND NEUTROPHILS % (MANUAL) 3 %; DIFFERENTIAL COMMENT MANUAL DIFFERENTIAL; EOSINOPHILS # (MANUAL) 0.2 10^3/uL (0-0.7); LYMPHOCYTES # (MANUAL) 1.6 10^3/uL (1.5-3.5); LYMPHOCYTES % (MANUAL) 7 %; MONOCYTES # (MANUAL) 1.3 10^3/uL (0.0-1.0); NEUTROPHILS # (MANUAL) 19.2 10^3/uL (1.5-6.6); PLATELET ESTIMATE, MANUAL NORMAL (130-450,000) (NORMAL); PLATELET MORPHOLOGY NORMAL APPEARANCE (NORMAL); RBC MORPHOLOGY (MULTIPLE) NORMAL APPEARANCE (NORMAL)
[2023-01-05 16:54] LABS: BILIRUBIN,URINE NEGATIVE (NEGATIVE); GLUCOSE, URINE (UA) NEGATIVE (NEGATIVE); KETONES,URINE (UA) 15 mg/dL (NEGATIVE); LEUKOCYTE ESTERASE, URINE NEGATIVE (NEGATIVE); NITRITE,URINE POSITIVE (NEGATIVE); OCCULT BLOOD,URINE LARGE (NEGATIVE); PROTEIN,URINE 100 mg/dL (NEGATIVE); UROBILINOGEN,URINE 0.2 (NORMAL) E.U./dL (NORMAL)
[2023-01-05 16:57] LABS: CLARITY,URINE CLOUDY (CLEAR)
[2023-01-05] MEDS ORDERED: cefTRIAXone 1 GM in SODIUM CHLORIDE 0.9% MINIBAG 100 ML IV STA (17:04)
[2023-01-05 17:10] LABS: AMORPHOUS SEDIMENT,UR Few /LPF; BACTERIA,URINE Many /HPF (None Seen); CASTS, URINE 6-10 Fine Granular /LPF; SQUAMOUS EPITHELIAL CELL,UR FEW Squamous (<= Few)
--- NOTE | 2023-01-05 17:44 | CT Report ---
PROCEDURE: HEAD WO INDICATIONS: ams; syncope TECHNIQUE: Noncontrast 4.5 mm thick angled axial sections acquired from the foramen magnum to the vertex. For r adiation dose reduction, the following was used: automated exposure control, adjustment of mA and/or kV according to patient size. COMPARISON: None. FINDINGS: Image quality: Excellent. CSF spaces: Basal cisterns are patent. No extra-axial fluid collections. Ventricles are normal in size and shape. Brain: No midline shift. No intracranial masses or hemorrhage. Hill-white matter interface is norm al. Skull and face: Calvarium and visualized facial bones are intact, without suspicious lesions. Sinuses: Visualized sinuses and mastoids are clear. IMPRESSION: 1. No acute intracranial abnormality. 2. Microvascular ischemic disease and age-related cerebral volume loss. Reviewed by: Brando Rodriguez on 01/05/2023 4:43 PM MIN Approved by: Brando Rodriguez on 01/05/2023 4:43 PM [facility] Station ID: [id number]
--- NOTE | 2023-01-05 17:49 | CT Report ---
PROCEDURE: ABDOMEN/PELVIS WO INDICATIONS: leukocytosis, diarrhea, isabella TECHNIQUE: A CT scan of the abdomen and pelvis was performed without the use of intravenous contrast. Images we re recorded and evaluated at appropriate window settings. Reformats: coronal and sagittal. For radiat ion dose reduction, the following was used: automated exposure control, adjustment of mA and/or kV ac cording to patient size. COMPARISON: None. FINDINGS: Image quality: Excellent. Lung bases and heart: Unremarkable. Liver: No solid mass. Gallbladder and biliary tree: Status post cholecystectomy. Spleen: No splenomegaly. Pancreas: No pancreatic ductal dilation. Adrenals: No adrenal nodule. Kidneys and ureters: No hydronephrosis. No renal cystic lesion which requires follow up. No solid mas s. The left kidney has a nonobstructing 10 mm calcification in a lower pole calyx. Bowel and peritoneum: No bowel distension. No pathologic free fluid. Lymph nodes: No central or retroperitoneal adenopathy. Vessels: No infrarenal aortic aneurysm. PELVIS Reproductive organs: Unremarkable. Bladder: No wall thickness, accounting for underdistention. Pelvic lymph nodes: No pelvic adenopathy by size criteria. Bones: No aggressive osseous abnormality. Other: No significant ventral or inguinal hernia. IMPRESSION: No hydronephrosis or obstructing renal stone. Reviewed by: Brando Rodriguez on 01/05/2023 4:47 PM MIN Approved by: Brando Rodriguez on 01/05/2023 4:47 PM MIN Station ID: [id number]
[2023-01-05] MEDS ORDERED: cefTRIAXone 1 GM VIAL ONE (17:55)
--- NOTE | 2023-01-05 19:17 | HISTORY & PHYSICAL EXAMINATION ---
Chief Complaint - Chief Complaint Chief Complaint: confusion, syncope, weakness History of Present Illness - History of Present Illness HPI Comment/Other: pt presents with generalized weakness and multiple falls over last 1-2 days. she states she has been feeling overall weak over last 2 weeks. her daughter lives with her, but she is now in rehab and will be in rehab for 1 yr, so currently, she is living alone. she states she had fallen yesterday after feeling dizzy and she had "blacked out." the paramedics had arrived and helped pick her up and offered to take her to hospital, and she refused. this episode occurred again. most recently, she had woke up last night to use the bathroom and the next thing she remembers is that she was lying on the floor. her son had tried callling her but when she did not answer, he sent his girlfriend to check and she found pt on the floor. paramedics were called and pt was brought to hospital. pt denies any dysuria, headache, chest pain, fevers, chills. she does feel overall achy. no seizures noted or reported. 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 : reports: Incontinence, Frequency HEENT: reports: None Psych: reports: Anxiety, Panic attacks Musculoskeletal: reports: None Derm: reports: None MRSA Hx?: Yes - Past Surgical History General: reports: Appendectomy Ortho: reports: Hip replacement - Family & Social History Family History: Other family: Diabetes, Type 2, Hypertension - Substance History Use: Uses substance without health or social issues: NONE - POLST Patient has POLST: No Meds/Allgy - Home Medications Home Medications: Ambulatory Orders Medication Instructions Recorded Confirmed Loratadine [Claritin] 10 mg PO DAILY 02/01/13 10/21/17 Oxybutynin [Ditropan] 5 mg PO BID 02/01/13 10/21/17 Ranitidine HCl 75 mg PO DAILY 02/01/13 10/21/17 Ipratropium/Albuterol [Duoneb] 3 ml INH BID #1 08/31/15 10/21/17 Albuterol Sulfate [Proair 1 puffs INH DAILY 11/09/15 10/21/17 Respiclick] Esomeprazole Magnesium [Nexium] 20 mg PO DAILY 11/09/15 10/21/17 Senna [Senokot] 1 tab PO DAILY PRN 11/09/15 10/21/17 Clindamycin HCl [Clindamycin 300MG 300 mg PO TID #21 capsule 05/28/18 CAP] Ondansetron Odt [Zofran] 4 mg TL Q6H PRN #10 tablet 05/28/18 Oxycodone HCl/Acetaminophen 1 each PO Q6H PRN #15 tablet 05/28/18 [Percocet 5-325 mg Tablet] Hydrocortisone Acetate [Anucort-Hc] 25 mg RC DAILY #5 supp.rect 09/22/18 - Allergies Allergies/Adverse Reactions: Allergies Allergy/AdvReac Type Severity Reaction Status Date / Time morphine Allergy Severe Rash Verified 05/28/18 08:46 Penicillins Allergy Intermediate Rash Verified 05/28/18 08:46 Review of Systems - Other Findings Other Findings: 14 pt review done with positives per hpi; all others reviewed as negative Exam - Vital Signs Vital Signs: Vital Signs x48h Temp Pulse Resp BP Pulse Ox 01/05/23 18:41 36.4 C L 99 20 156/70 H 100 01/05/23 18:07 100 16 124/103 H 100 01/05/23 15:33 36.4 C L 108 H 22 108/50 L 96 - Physical Exam Comments/Other: gen - aaox3, nad, polite, son at bedside heent - eomi, dry mouth heart - tachy lungs - ctab abd - soft, distended but compressible, upper abdomen tenderness noted msk - no acute trauma, b/l LE 1+ pitting edemia skin - abrasions on arms Sepsis Event Note (H) - Evaluation Possible source of Sepsis: positive: Genitourinary Conclusion/Plan - Lab Results Fish Bones: 01/05/23 16:13 01/05/23 16:13 - Other Other Results/Comments: pt with - - toxic, metabolic encephalopathy in setting of sepsis (below) no focal neuro deficits, and head CT NEG for acute pathology mentation improving with treatment as per below check ammonia levels - sepsis with shock in setting uti / bacteremia vitals improving with IVF, but still with tachycardia repeat lactate, continue IVF, check cultures, further details below - uti contributory to above and below continue rocephin, check urine cultures - isabella Cr >3, likely d/t above pre-renal azotemia and also diabetic nephropathy check renal sono, renally dose meds, avoid nephrotoxins as much as possible continue IVF concern for ATN, will also give bicarb - transaminitis shock liver injury d/t above + hepato-renal dysfunction check hepatitis panel, check liver US avoid hepatotoxins as much as possible check ammonia levels - hyperglycemia with new-onset t2dm glucose >200s, exacerbated d/t above check a1c, start ssi - anemia check FOBT, iron studies pt has h/o hemorrhoids - diarrhea likely reactive in setting of sepsis / bacteremia CT abd/pelvis NEG for acute pathology C.diff negative probiotics, IVF, supportive mgmt - frequent falls in setting of sepsis + uti CT head NEG for acute pathology no focal neuro deficits pt eval and treat to improve strength / mobility f/u labs, cultures, replete electrolytes further orders per clinical course
[2023-01-05] MEDS ORDERED: SENNA 8.6 MG TABLET PO PRN (19:27)
[2023-01-05] MEDS ORDERED: ONDANSETRON ODT 4 MG TABLET TL PRN (19:27)
[2023-01-05] MEDS ORDERED: SODIUM CHLORIDE FLUSH 0.9% 10 ML SYRINGE IVP PRN (19:32)
[2023-01-05] MEDS: SODIUM CHLORIDE 0.9% 1,000 ML IV SCH (19:41)
[2023-01-05] MEDS ORDERED: SODIUM BICARBONATE 150 MEQ in DEXTROSE 5% 1,000 ML IV STA (19:47)
[2023-01-05 19:58] LABS: CHOL/HDL RATIO 4.7 (<4.4); CHOLESTEROL 112 mg/dL; HDL CHOLESTEROL 24 mg/dL; LDL CHOLESTEROL,CALCULATED 34 mg/dL; LDL/HDL RATIO 1.4 (<4.4); TRIGLYCERIDES 272 mg/dL; VLDL CHOLESTEROL 54 mg/dL
[2023-01-05 20:01] LABS: % IRON SATURATION 4 % (20-50); IRON 20 ug/dL (28-170); TOTAL IRON BINDING CAPACITY 472 ug/dL (250-450); TRANSFERRIN 337 mg/dL (192-382)
[2023-01-05 20:07] LABS: ESTIMATED AVERAGE GLUCOSE 134 mg/dL (70-100); HEMOGLOBIN A1c% 6.3 % (4.27-6.07)
[2023-01-05] MEDS ORDERED: NON FORMULARY MED (Oxybutynin [Ditropan] 5 MG Tablet) PO SCH (21:00)
[2023-01-05] MEDS: IPRATROPIUM/ALBUTEROL 3 ML NEB INH SCH (21:40)
[2023-01-05] MEDS: INSULIN LISPRO 300 UNIT/3 ML PEN SUBQ SCH (21:43)
[2023-01-05] MEDS: HEPARIN 5,000 UNIT/ML VIAL SUBQ SCH (21:51)
[2023-01-05] MEDS: SODIUM CHLORIDE FLUSH 0.9% 10 ML SYRINGE IVP SCH (21:56)
--- NOTE | 2023-01-05 22:17 | Ultrasound Report ---
PROCEDURE: Abdomen Complete INDICATIONS: elevated LFTs TECHNIQUE: Real-time scanning was performed of the abdominal and retroperitoneal organs, with image documentatio n. COMPARISON: None. FINDINGS: Liver: The liver is enlarged with increased hepatic echogenicity compatible with fatty infiltration. Gallbladder: Surgically absent. Biliary ducts: Intrahepatic bile ducts are non-dilated. The visualized common bile duct is normal in caliber measuring up to 0.5 cm. Pancreas: Visualized portions of the pancreatic head appears sonographically normal. Spleen: Spleen is normal in size and homogeneous in echotexture. Kidneys: Right kidney measures 11.5 cm long; left kidney measures 9.6 cm long. No hydronephrosis. T here is a nonspecific and stone in the left kidney measuring up to approximately 1.4 cm. Aorta: Visualized aorta appears mildly ectatic. Iliacs: Proximal common iliac arteries are not well seen. IVC: Intrahepatic inferior vena cava is patent. Miscellaneous: No free abdominal fluid. IMPRESSION: 1. Increased hepatic echogenicity compatible with steatosis. 2. No evidence of biliary ductal dilatation. 3. Left nephrolithiasis redemonstrated. Reviewed by: Jarett Santiago MD on 01/05/2023 10:15 PM PDT Approved by: Jarett Santiago MD on 01/05/2023 10:15 PM PDT Station ID: [id number]
[2023-01-06 06:14] LABS: BASOPHILS # (AUTO) 0.1 10^3/uL (0.0-0.1); BASOPHILS % (AUTO) 0.3 %; EOSINOPHILS # (AUTO) 0.5 10^3/uL (0.0-0.7); EOSINOPHILS % (AUTO) 3.5 %; HCT - HEMATOCRIT 30.1 % (37.0-47.0); HGB - HEMOGLOBIN 9.2 g/dL (12.0-16.0); LYMPHOCYTES # (AUTO) 2.6 10^3/uL (1.5-3.5); LYMPHOCYTES % (AUTO) 17.6 %; MEAN CORPUSCULAR HGB CONC 30.6 g/dL (32.0-36.0); MEAN CORPUSCULAR VOLUME 81.8 fL (81.0-99.0); MEAN PLATELET VOLUME 13.5 fL (7.9-10.8); MONOCYTES % (AUTO) 6.9 %; NEUTROPHILS # (AUTO) 10.5 10^3/uL (1.5-6.6); NEUTROPHILS % (AUTO) 71.2 %; PLT - PLATELET COUNT 175 10^3/uL (130-450); RED BLOOD COUNT 3.68 10^6/uL (4.20-5.40); RED CELL DISTRIBUTION WIDTH 17.4 % (12.0-15.0); WHITE BLOOD COUNT 14.7 x10^3/uL (4.8-10.8)
[2023-01-06 06:28] LABS: ALBUMIN 3.3 g/dL (3.2-5.5); ALBUMIN/GLOBULIN RATIO 1.2 (1.0-2.2); BILIRUBIN,TOTAL 0.4 mg/dL (0.2-1.0); CALCIUM 9.3 mg/dL (8.5-10.3); CREATININE 1.7 mg/dL (0.4-1.0); MAGNESIUM 1.7 mg/dL (1.7-2.8); PHOSPHORUS 2.7 mg/dL (2.5-4.6)
[2023-01-06] MEDS: PANTOPRAZOLE 40 MG TABLET PO SCH (06:54)
[2023-01-06] MEDS: IPRATROPIUM/ALBUTEROL 3 ML NEB INH SCH ×2 (07:37→19:38)
[2023-01-06] MEDS ORDERED: MULTIVITAMIN TABLET PO SCH (08:00)
[2023-01-06] MEDS: cefTRIAXone 1 GM in SODIUM CHLORIDE 0.9% MINIBAG 100 ML IV SCH (08:56)
[2023-01-06] MEDS: ASCORBIC ACID 500 MG TABLET PO SCH (08:56)
[2023-01-06] MEDS: SOLIFENACIN SUCCINATE 5 MG TABLET PO SCH (08:56)
[2023-01-06] MEDS: THIAMINE 100 MG TABLET PO SCH (08:56)
[2023-01-06] MEDS: SACCHAROMYCES BOULARDII 250 MG CAPSULE PO SCH ×2 (08:56→16:48)
[2023-01-06] MEDS: FERROUS SULFATE 325 MG TABLET PO SCH ×2 (08:56→16:48)
[2023-01-06] MEDS: SODIUM CHLORIDE FLUSH 0.9% 10 ML SYRINGE IVP SCH ×3 (08:57→23:57)
[2023-01-06] MEDS: HEPARIN 5,000 UNIT/ML VIAL SUBQ SCH ×2 (08:57→22:03)
[2023-01-06] MEDS ORDERED: FOLIC ACID 1 MG TABLET PO SCH (09:00)
[2023-01-06] MEDS: INSULIN LISPRO 300 UNIT/3 ML PEN SUBQ SCH ×4 (09:02→20:23)
[2023-01-06] MEDS: POTASSIUM CHLORIDE 20 MEQ TABLET PO SCH (10:26)
--- NOTE | 2023-01-06 11:39 | PHARMACY PROGRESS NOTE ---
- Best Possible Medication History Admit Date and Time: 01/05/231931 Processed by: Pharmacy Medication History completed: Yes Patient Interview: Completed Secondary Source(s): Pharmacy records, Insurance records As the person ultimately responsible for medication therapy, providers are able to order a medication from an existing home medication list in [facility] via the "Reconcile Routine" prior to Confirmation of that medication by help desk support. Such practice is discouraged except when the physician, in their clinical judgment, deems that a medical need exists for a medication without regard to previous use.
[2023-01-06] MEDS: SODIUM CHLORIDE 0.9% 1,000 ML IV SCH ×3 (14:16→23:51)
[2023-01-06] MEDS: ACETAMINOPHEN 325 MG TABLET PO PRN ×2 (15:34→22:03)
[2023-01-06] MEDS: ALBUTEROL NEB 2.5 MG/3 ML INH SCH (19:38)
--- NOTE | 2023-01-06 22:37 | PROVIDER PROGRESS NOTE ---
Progress Note January 06, 2023 7 PM Patient was seen this morning with her son at the bedside. He describes her sudden deterioration that was quick over the last few days with falling. She herself does not remember much. She knows she is in the hospital but she is confused about how she got here. She says that she hurts all over. Neck hurts, back hurts. She denies cough, shortness of breath. She denies abdominal pain. Active Medications Acetaminophen (Acetaminophen 325 Mg Tablet) 650 mg PO Q4HR PRN PRN Reason: Pain 1-4 or Fever > 38C Last Admin: 01/06/23 22:03 Dose: 650 mg Albuterol (Albuterol Neb 2.5 Mg/3 Ml) 2.5 mg INH DAILY [facility] Last Admin: 01/06/23 19:38 Dose: Not Given Albuterol/Ipratropium (Ipratropium/Albuterol 3 Ml Neb) 3 ml INH BID [facility] Last Admin: 01/06/23 19:38 Dose: 3 ml Ascorbic Acid (Ascorbic Acid 500 Mg Tablet) 500 mg PO DAILY [facility] Last Admin: 01/06/23 08:56 Dose: 500 mg Ferrous Sulfate (Ferrous Sulfate 325 Mg Tablet) 325 mg PO BIDWM [facility] Last Admin: 01/06/23 16:48 Dose: 325 mg Heparin Sodium (Porcine) (Heparin 5,000 Unit/Ml Vial) 5,000 unit SUBQ BID [facility] Last Admin: 01/06/23 22:03 Dose: 5,000 unit Ceftriaxone Sodium 1 gm/ (Sodium Chloride) 100 mls @ 200 mls/hr IV DAILY [facility] Stop: 01/13/23 08:59 Last Infusion: 01/06/23 09:30 Dose: Infused Sodium Chloride (Normal Saline 0.9%) 1,000 mls @ 100 mls/hr IV .Q10H [facility] Last Admin: 01/06/23 16:49 Dose: Not Given Insulin Human Lispro (Insulin Lispro 300 Unit/3 Ml Pen) 1 - 5 unit SUBQ 0800,1200,1700,2100 [facility]; Protocol Last Admin: 01/06/23 20:23 Dose: Not Given Ondansetron HCl (Ondansetron Odt 4 Mg Tablet) 4 mg TL Q6H PRN PRN Reason: Nausea / Vomiting Pantoprazole Sodium (Pantoprazole 40 Mg Tablet) 40 mg PO QDAC [facility] Last Admin: 01/06/23 06:54 Dose: 40 mg Potassium Chloride (Potassium Chloride 20 Meq Tablet) 40 meq PO DAILYWM [facility] Last Admin: 01/06/23 10:26 Dose: 40 meq Multivit/Folic Acid/Iron ( Vitamin Tablet) 1 tab PO DAILY [facility] Saccharomyces Boulardii (Saccharomyces Boulardii 250 Mg Capsule) 250 mg PO BIDWM [facility] Last Admin: 01/06/23 16:48 Dose: 250 mg Senna (Senna 8.6 Mg Tablet) 8.6 mg PO DAILY PRN PRN Reason: Constipation Sodium Chloride (Sodium Chloride Flush 0.9% 10 Ml Syringe) 10 ml IVP PRN PRN PRN Reason: NEEDED PER PROVIDER ORDERS Sodium Chloride (Sodium Chloride Flush 0.9% 10 Ml Syringe) 10 ml IVP 0100,0900,1700 [facility] Last Admin: 01/06/23 16:49 Dose: 10 ml Solifenacin (Solifenacin Succinate 5 Mg Tablet) 10 mg PO DAILY [facility] Last Admin: 01/06/23 08:56 Dose: 10 mg Thiamine HCl (Thiamine 100 Mg Tablet) 100 mg PO DAILY [facility] Last Admin: 01/06/23 08:56 Dose: 100 mg Loratadine [Claritin] 10 mg PO DAILY 02/01/13 Albuterol Sulfate [Proair Respiclick] 1 puffs INH Q4H PRN 11/09/15 Esomeprazole Magnesium [Nexium] 20 mg PO QDAC 11/09/15 Acetaminophen [Tylenol] 500 mg PO BID 01/06/23 Amitriptyline [Elavil] 10 mg PO QPM 01/06/23 Atorvastatin Calcium [Lipitor] 80 mg PO QPM 01/06/23 Cyanocobalamin (Vitamin B-12) [Vitamin B-12] 1 cap PO DAILY 01/06/23 Cyclobenzaprine [Flexeril] 10 mg PO TID PRN 01/06/[address] [Voltaren] 75 mg PO BID PRN 01/06/23 Metoprolol Succinate [Toprol Xl] 25 mg PO DAILY 01/06/23 Multivit-Minerals/Folic Acid [Centrum Adult 50 Plus Gummy] 1 tab PO DAILY 01/06/23 Oxybutynin Chloride [Ditropan Xl] 15 mg PO DAILY 01/06/23 Pregabalin [Lyrica] 150 mg PO BID 01/06/23 lisinopriL [Lisinopril] 10 mg PO QPM 01/06/23 Vitals: Temperature is 37. Heart rate 94. Blood pressure 156/60. Respirations 20. She is a 5 foot 7 inch female 118 kg. She appears older than stated age, very disheveled, with choreoathetotic head movements and lip smacking. I asked her son how long she has been doing that and he said that her lip smacking it has been all of her life. But the choreoathetotic head movement is "because her neck hurts and she is uncomfortable". She says that the left side of her neck hurts she is just trying to get herself comfortable. Neck is supple and she does have pain along the trapezius insertion site on the backside of her left neck, and down to the shoulder. But no JVD. Lungs are clear to auscultation and percussion Regular rate and rhythm Abdomen is soft, nontender, hypoactive bowel sounds Extremities are without edema and she is moving them spontaneously with purposeful movement. Oriented to person, place, but not situation or date. Speech is intact. But she just does not remember why she is here or what happened. No focal deficits. Movement disorder discussed as above. Lab: Sodium 141, potassium 3.0, BUN 33, creatinine 1.7. Her creatinine yesterday was 3.3. BUN yesterday was 4.8. So hydration and antibiotics have definitely of helped acute kidney insufficiency. Glucose today has been 134, 123, 110, 139. Total bili 0.4 and AST is 219, ALT 106 White cell count is 14.7 which is improved from yesterday's white cell count of 22.3. Hemoglobin 9.2. In 2019 she had a normal hemoglobin of 12.9. By 2019 she was 11.3. In 2022 she was down to 10.5. And today 9.2. Urine culture is growing out E. coli sensitivities pending Blood culture is negative after 1 day Fecal occult blood is negative Assessment/plan 1. Toxic metabolic encephalopathy due to sepsis. She has definitely improved this morning. In the outpatient setting I do not know what her baseline would be. Son describes her as definitely improved today. But more confused than baseline. The lipsmacking is normal, and the head movement is only because her neck hurts. I would expect her to continue to improve as her infection resolves. 2. Sepsis with shock. Systolic was 108/50 in the ER. With IV fluids, antibiotics blood pressure is now 156/60 this afternoon. White cell count is still elevated above 12 but responding to antibiotics and is coming down. Lactic acid was never elevated. Tachycardia has resolved. As such, sepsis criteria have resolved, and shock has resolved. 3. E. coli UTI. Patient is on empiric ceftriaxone therapy. We will await sensitivities and will adjust antibiotics as necessary. CT of the abdomen was already done to make sure she did not have obstruction. She does have a single left kidney cyst that is nonobstructing. 4. Acute on chronic kidney injury. With the hypotension and shock her creatinine breezy abruptly. She most likely is also dehydrated. Her creatinine is responding nicely to the IV fluids and normalization of blood pressure. We will continue to monitor daily, avoid nephrotoxic agents. Consider stopping IV fluids once she has enough oral intake and her creatinine is normal. 5. Transaminitis due to shock liver. That is also currently improving. Admitting telemedicine physician recommended hepatitis panel and ultrasound. Hepatitis panel was not done, and abdominal ultrasound has fatty liver, no biliary duct dilation. And left kidney stones. I will hold off on doing hepatitis panel since she is rapidly improving. 6. Possible new onset diabetes mellitus. Glucose in the ER was 205. This morning is 134. A1c is 6.3%. Most likely she has type 2 diabetes mellitus, but not needing medications. With the stress of sepsis, she has elevated sugar. She does not require sliding scale insulin. We will monitor this and start insulin if glucose goes above 180. 7. Anemia. Iron was low at 20, TIBC 472, percent saturation 4, transferrin 37. TSH is 1.05. She is fecal occult blood negative. She was already started on oral iron last night. She will need follow-up with her primary care provider to complete the work-up. 8. History of falls at home. PT and OT will work with her today. 9. Movement disorder. She is not on medication such as Reglan, and son feels that this is baseline status for mom. He does not remember if she is ever taken antipsychotics. We will continue to follow this. Possibly need an outpatient neurological referral if PCP feels that is warranted.
[2023-01-07] MEDS: PANTOPRAZOLE 40 MG TABLET PO SCH (06:13)
[2023-01-07] MEDS: ACETAMINOPHEN 325 MG TABLET PO PRN ×2 (07:27→21:31)
[2023-01-07] MEDS: INSULIN LISPRO 300 UNIT/3 ML PEN SUBQ SCH ×4 (07:48→21:31)
[2023-01-07] MEDS: HEPARIN 5,000 UNIT/ML VIAL SUBQ SCH ×2 (08:00→21:28)
[2023-01-07] MEDS: SOLIFENACIN SUCCINATE 5 MG TABLET PO SCH (08:00)
[2023-01-07] MEDS: FERROUS SULFATE 325 MG TABLET PO SCH ×2 (08:01→16:50)
[2023-01-07] MEDS: cefTRIAXone 1 GM in SODIUM CHLORIDE 0.9% MINIBAG 100 ML IV SCH (08:01)
[2023-01-07] MEDS: THIAMINE 100 MG TABLET PO SCH (08:01)
[2023-01-07] MEDS: ASCORBIC ACID 500 MG TABLET PO SCH (08:01)
[2023-01-07] MEDS: POTASSIUM CHLORIDE 20 MEQ TABLET PO SCH (08:05)
[2023-01-07] MEDS: PRENATAL VITAMIN TABLET PO SCH (08:05)
[2023-01-07] MEDS: SACCHAROMYCES BOULARDII 250 MG CAPSULE PO SCH ×2 (08:27→16:50)
[2023-01-07 08:39] LABS: BASOPHILS % (AUTO) 0.5 %; EOSINOPHILS # (AUTO) 0.4 10^3/uL (0.0-0.7); EOSINOPHILS % (AUTO) 5.3 %; HCT - HEMATOCRIT 29.6 % (37.0-47.0); HGB - HEMOGLOBIN 8.9 g/dL (12.0-16.0); LYMPHOCYTES % (AUTO) 25.5 %; MEAN CORPUSCULAR HEMOGLOBIN 24.8 pg (27.0-31.0); MEAN CORPUSCULAR HGB CONC 30.1 g/dL (32.0-36.0); MEAN CORPUSCULAR VOLUME 82.5 fL (81.0-99.0); MEAN PLATELET VOLUME 12.9 fL (7.9-10.8); MONOCYTES # (AUTO) 0.5 10^3/uL (0.0-1.0); MONOCYTES % (AUTO) 6.9 %; NEUTROPHILS # (AUTO) 4.8 10^3/uL (1.5-6.6); NEUTROPHILS % (AUTO) 61.5 %; PLT - PLATELET COUNT 164 10^3/uL (130-450); RED BLOOD COUNT 3.59 10^6/uL (4.20-5.40); RED CELL DISTRIBUTION WIDTH 17.4 % (12.0-15.0); WHITE BLOOD COUNT 7.8 x10^3/uL (4.8-10.8)
[2023-01-07 09:01] LABS: ALBUMIN 3.2 g/dL (3.2-5.5); ALBUMIN/GLOBULIN RATIO 1.1 (1.0-2.2); BILIRUBIN,TOTAL 0.5 mg/dL (0.2-1.0); CALCIUM 9.3 mg/dL (8.5-10.3); POTASSIUM 3.8 mmol/L (3.5-5.0); TOTAL PROTEIN 6.2 g/dL (6.7-8.2)
[2023-01-07] MEDS: IPRATROPIUM/ALBUTEROL 3 ML NEB INH SCH ×2 (09:12→20:44)
[2023-01-07] MEDS: SODIUM CHLORIDE FLUSH 0.9% 10 ML SYRINGE IVP SCH ×3 (10:16→23:25)
[2023-01-07] MEDS ORDERED: LORazepam 1 MG TABLET PO PRN (10:30)
[2023-01-07 11:17] LABS: BASOPHILS # (AUTO) 0.1 10^3/uL (0.0-0.1); BASOPHILS % (AUTO) 0.6 %; EOSINOPHILS # (AUTO) 0.6 10^3/uL (0.0-0.7); EOSINOPHILS % (AUTO) 6.2 %; HCT - HEMATOCRIT 31.9 % (37.0-47.0); HGB - HEMOGLOBIN 9.8 g/dL (12.0-16.0); LYMPHOCYTES # (AUTO) 2.1 10^3/uL (1.5-3.5); LYMPHOCYTES % (AUTO) 23.6 %; MEAN CORPUSCULAR HEMOGLOBIN 25.5 pg (27.0-31.0); MEAN CORPUSCULAR HGB CONC 30.7 g/dL (32.0-36.0); MEAN CORPUSCULAR VOLUME 82.9 fL (81.0-99.0); MONOCYTES # (AUTO) 0.5 10^3/uL (0.0-1.0); MONOCYTES % (AUTO) 5.7 %; NEUTROPHILS # (AUTO) 5.6 10^3/uL (1.5-6.6); NEUTROPHILS % (AUTO) 63.6 %; PLT - PLATELET COUNT 193 10^3/uL (130-450); RED BLOOD COUNT 3.85 10^6/uL (4.20-5.40); RED CELL DISTRIBUTION WIDTH 17.5 % (12.0-15.0); WHITE BLOOD COUNT 8.9 x10^3/uL (4.8-10.8)
[2023-01-07] MEDS: SODIUM CHLORIDE 0.9% 1,000 ML IV SCH ×2 (11:30→21:31)
[2023-01-07 11:37] LABS: ALBUMIN 3.2 g/dL (3.2-5.5); BILIRUBIN,TOTAL 0.4 mg/dL (0.2-1.0); CALCIUM 9.5 mg/dL (8.5-10.3); POTASSIUM 3.7 mmol/L (3.5-5.0); TOTAL PROTEIN 6.5 g/dL (6.7-8.2)
--- NOTE | 2023-01-07 12:12 | PROVIDER PROGRESS NOTE ---
Assessment/Plan - Problem List (1) Rhabdomyolysis Assessment/Plan: patient report She was laying on the floor for 6 to 7 hours At home from her fall. Skin of left arm with bruise and skin is closing and healing now. pt has hx of left freeze shoulder with limited ROM. Pt report she has no other injury. CT of head without acute process. CK is still over 1700. Patient's kidney function had significantly improved. Creatinine is 1.0 from 3.3 from admission. We will continue gentle intravenous fluids, continue laboratory monitoring Consult with physical therapist and occupational therapist. 2. Toxic metabolic encephalopathy due to sepsis. Significantly improved with alert and oriented plus two. CT of head show no acute process. pt has no focal neurological deficits. In the outpatient setting, I do not know what her baseline would be. I would expect her to continue to improve as her infection resolves. 3. Sepsis with shock. resolved. WBC became normal. Lactic acid was never elevated. Tachycardia has resolved. As such, sepsis criteria have resolved, and shock has resolved. 4. E. coli UTI. Patient is on empiric ceftriaxone therapy. UA culture show E.coli with panosensitive to antibiotics. CT of the abdomen was already done to make sure she did not have obstruction. She does have a single left kidney cyst that is nonobstructing. 5. Acute on chronic kidney injury. resolved, creatinine became 1.0 on today. 6. Transaminitis due to shock liver. That is also currently improving. Admitting telemedicine physician recommended hepatitis panel and ultrasound. Hepatitis panel was not done, and abdominal ultrasound has fatty liver, no biliary duct dilation. And left kidney stones. I will hold off on doing hepatitis panel since she is rapidly improving. pt denies drinking of alcohol. 7. Possible new onset diabetes mellitus. Glucose in the ER was 205. This morning is 134. A1c is 6.3%. Most likely she has type 2 diabetes mellitus, but not needing medications. With the stress of sepsis, she has elevated sugar. She does not require sliding scale insulin. We will monitor this and start insulin if glucose goes above 180. 8. Anemia. Iron was low at 20, TIBC 472, percent saturation 4, transferrin 37. TSH is 1.05. She is fecal occult blood negative. She was already started on oral iron last night. She will need follow-up with her primary care provider to complete the work-up. 9. History of falls at home. PT and OT will work with pt and recommend to SNF, consult with community mental health social worker for d/c planning 10. Movement disorder. She is not on medication such as Reglan, and son feels that this is baseline status for mom. He does not remember if she is ever taken antipsychotics. - Current Meds Current Meds: Current Medications Generic Name Dose Route Start Last Admin Trade Name Freq PRN Reason Stop Dose Admin Albuterol/Ipratropium 3 ml 01/05/23 21:00 01/07/23 09:12 Ipratropium/Albuterol 3 Ml Neb INH 3 ml BID LESLEE Administration Ascorbic Acid 500 mg 01/06/23 09:00 01/07/23 08:01 Ascorbic Acid 500 Mg Tablet PO 500 mg DAILY LESLEE Administration Ferrous Sulfate 325 mg 01/06/23 08:00 01/07/23 08:01 Ferrous Sulfate 325 Mg Tablet PO 325 mg BIDWM LESLEE Administration Heparin Sodium (Porcine) 5,000 unit 01/05/23 21:00 01/07/23 08:00 Heparin 5,000 Unit/Ml Vial SUBQ 5,000 unit BID LESLEE Administration Ceftriaxone Sodium 1 gm/ 100 mls @ 200 mls/hr 01/06/23 09:00 01/07/23 09:12 Sodium Chloride IV 01/13/23 08:59 Infused DAILY LESLEE Infusion Sodium Chloride 1,000 mls @ 100 mls/hr 01/05/23 20:00 01/07/23 11:30 Normal Saline 0.9% IV 100 mls/hr .Q10H LESLEE Administration Insulin Human Lispro 1 - 5 unit 01/05/23 21:00 01/07/23 07:48 Insulin Lispro 300 Unit/3 Ml Pen SUBQ Not Given 0800,1200,1700,2100 LESLEE Protocol Pantoprazole Sodium 40 mg 01/06/23 07:00 01/07/23 06:13 Pantoprazole 40 Mg Tablet PO 40 mg QDAC LESLEE Administration Potassium Chloride 40 meq 01/06/23 10:00 01/07/23 08:05 Potassium Chloride 20 Meq Tablet PO 40 meq DAILYWM LESLEE Administration Multivit/Folic Acid/Iron 1 tab 01/07/23 09:00 01/07/23 08:05 Vitamin Tablet PO 1 tab DAILY LESLEE Administration Saccharomyces Boulardii 250 mg 01/06/23 08:00 01/07/23 08:27 Saccharomyces Boulardii 250 Mg Capsule PO 250 mg BIDWM LESLEE Administration Sodium Chloride 10 ml 01/06/23 01:00 01/07/23 10:16 Sodium Chloride Flush 0.9% 10 Ml Syringe IVP 10 ml 0100,0900,1700 LESLEE Administration Solifenacin 10 mg 01/06/23 09:00 01/07/23 08:00 Solifenacin Succinate 5 Mg Tablet PO 10 mg DAILY LESLEE Administration Thiamine HCl 100 mg 01/06/23 09:00 01/07/23 08:01 Thiamine 100 Mg Tablet PO 100 mg DAILY LESLEE Administration - Lab Result Fish Bone Diagrams: 01/07/23 11:05 01/07/23 11:05 - Additional Planning My Orders: My Active Orders 01/07/23 Evaluate and Treat OT [OT] Routine 01/07/23 08:26 Echo Limited [ECHO] Routine 01/07/23 08:31 Acetaminophen [Tylenol] 650 mg PO Q4HR PRN 01/07/23 09:13 traMADol [Ultram] 50 mg PO Q4HR PRN 01/07/23 10:30 CIWA - AR Score Card [RC] Q4HR Social Work Consult [CONS] Routine LORazepam [Ativan] 1 mg PO Q1H PRN 01/07/23 Lunch Carb-controlled Diet [DIET] 01/07/23 12:03 Albuterol 2.5 mg INH RTQ4H PRN 01/08/23 05:00 CBC - COMP BLD CT W/AUTO DIFF [HEME] DAILYLAB CMP [COMPREHENSIVE METABOLIC PANEL] [CHEM] DAILYLAB Subjective - Subjective Patient Reports: Feeling Better (pt denies drinking of alcohol), Resting Comfortably Objective Vital Signs: Vital Signs - 24 hr 01/06/23 01/06/23 01/06/23 15:28 19:35 23:24 Temperature 37.0 C 37.2 C Heart Rate 94 Heart Rate [ 94 Brachial] Respiratory 20 20 Rate Blood Pressure 156/60 H [Right Brachial artery] O2 Saturation 98 01/07/23 01/07/23 01/07/23 00:00 07:38 09:15 Temperature 36.9 C 36.7 C Heart Rate 86 Heart Rate [ 89 89 Brachial] Respiratory 16 20 18 Rate Blood Pressure 131/60 H 147/81 H [Right Brachial artery] O2 Saturation 96 97 Oxygen O2 Source Room air I&O (Last 24 Hrs): Intake and Output Totals x24h 01/05/23 01/06/23 01/07/23 23:59 23:59 23:59 Intake Total 2670 3865.000 2074 Output Total 650 1100 Balance 2670 3215.000 974 General: Alert, Cooperative, Other (oriented two) HEENT: PERRLA Neck: Supple Neuro: Alert, Non Focal Cardiovascular: Regular rate, Normal S1, Normal S2 Respiratory: Chest non-tender, No respiratory distress Abdomen: Normal bowel sounds, Soft, No tenderness Extremities: Other (left arm with bruise, and skin is healing without tenderness) - Results Results: Laboratory Results WBC 8.9 x10^3/uL (4.8-10.8) 01/07/23 11:05 RBC 3.85 10^6/uL (4.20-5.40) L 01/07/23 11:05 Hgb 9.8 g/dL (12.0-16.0) L 01/07/23 11:05 Hct 31.9 % (37.0-47.0) L 01/07/23 11:05 MCV 82.9 fL (81.0-99.0) 01/07/23 11:05 MCH 25.5 pg (27.0-31.0) L 01/07/23 11:05 MCHC 30.7 g/dL (32.0-36.0) L 01/07/23 11:05 RDW 17.5 % (12.0-15.0) H 01/07/23 11:05 Plt Count 193 10^3/uL (130-450) 01/07/23 11:05 MPV 13.0 fL (7.9-10.8) H 01/07/23 11:05 Neut # (Auto) 5.6 10^3/uL (1.5-6.6) 01/07/23 11:05 Lymph # (Auto) 2.1 10^3/uL (1.5-3.5) 01/07/23 11:05 [place] # (Auto) 0.5 10^3/uL (0.0-1.0) 01/07/23 11:05 Eos # (Auto) 0.6 10^3/uL (0.0-0.7) 01/07/23 11:05 Baso # (Auto) 0.1 10^3/uL (0.0-0.1) 01/07/23 11:05 Absolute Nucleated RBC 0.00 x10^3/uL 01/07/23 11:05 Total Counted 100 01/05/23 16:13 Band Neuts % (Manual) 3 % (0-10) 01/05/23 16:13 Abnorm Lymph % (Manual) 0 % 01/05/23 16:13 Nucleated RBC % 0.0 /100WBC 01/07/23 11:05 Neutrophils # (Manual) 19.2 10^3/uL (1.5-6.6) H 01/05/23 16:13 Lymphocytes # (Manual) 1.6 10^3/uL (1.5-3.5) 01/05/23 16:13 Monocytes # (Manual) 1.3 10^3/uL (0.0-1.0) H 01/05/23 16:13 Eosinophils # (Manual) 0.2 10^3/uL (0-0.7) 01/05/23 16:13 Basophils # (Manual) 0.0 10^3/uL (0-0.1) 01/05/23 16:13 Differential Comment MANUAL DIFFERENTIAL 01/05/23 16:13 Platelet Estimate NORMAL (130-450,000) (NORMAL) 01/05/23 16:13 Platelet Morphology NORMAL APPEARANCE (NORMAL) 01/05/23 16:13 RBC Morph Micro Appear NORMAL APPEARANCE (NORMAL) 01/05/23 16:13 Sodium 143 mmol/L (135-145) 01/07/23 11:05 Potassium 3.7 mmol/L (3.5-5.0) 01/07/23 11:05 Chloride 112 mmol/L (101-111) H 01/07/23 11:05 Carbon Dioxide 24 mmol/L (21-32) 01/07/23 11:05 Anion Gap 7.0 (6-13) 01/07/23 11:05 BUN 15 mg/dL (6-20) 01/07/23 11:05 Creatinine 1.0 mg/dL (0.4-1.0) 01/07/23 11:05 Estimated GFR (MDRD) 55 (>89) L 01/07/23 11:05 Glucose 172 mg/dL (70-100) H 01/07/23 11:05 POC Whole Bld Glucose 172 mg/dL (70 - 100) H 01/07/23 11:12 Estimat Average Glucose 134 mg/dL (70-100) H 01/05/23 16:13 Hemoglobin A1c % 6.3 % (4.27-6.07) H 01/05/23 16:13 Lactic Acid 1.1 mmol/L (0.5-2.2) 01/05/23 22:56 Calcium 9.5 mg/dL (8.5-10.3) 01/07/23 11:05 Phosphorus 2.7 mg/dL (2.5-4.6) 01/06/23 05:39 Magnesium 1.7 mg/dL (1.7-2.8) 01/07/23 11:05 Iron 20 ug/dL (28-170) L 01/05/23 16:13 TIBC 472 ug/dL (250-450) H 01/05/23 16:13 % Saturation 4 % (20-50) L 01/05/23 16:13 Transferrin 337 mg/dL (192-382) 01/05/23 16:13 Total Bilirubin 0.4 mg/dL (0.2-1.0) 01/07/23 11:05 AST 126 IU/L (10-42) H 01/07/23 11:05 ALT 102 IU/L (10-60) H 01/07/23 11:05 Alkaline Phosphatase 55 IU/L (42-121) 01/07/23 11:05 Ammonia < 10.0 umol/L (7-35) 01/05/23 22:56 Total Creatine Kinase 1713 IU/L (22-269) H* 01/07/23 08:35 B-Natriuretic Peptide 34 pg/mL (5-100) 01/05/23 16:13 Total Protein 6.5 g/dL (6.7-8.2) L 01/07/23 11:05 Albumin 3.2 g/dL (3.2-5.5) 01/07/23 11:05 Globulin 3.3 g/dL (2.1-4.2) 01/07/23 11:05 Albumin/Globulin Ratio 1.0 (1.0-2.2) 01/07/23 11:05 Triglycerides 272 mg/dL (-149) H 01/05/23 16:13 Cholesterol 112 mg/dL (-199) 01/05/23 16:13 LDL Cholesterol, Calc 34 mg/dL (-129) 01/05/23 16:13 VLDL Cholesterol 54 mg/dL 01/05/23 16:13 HDL Cholesterol 24 mg/dL (60-) L 01/05/23 16:13 LDL/HDL Ratio 1.4 (<4.4) 01/05/23 16:13 Cholesterol/HDL Ratio 4.7 (<4.4) 01/05/23 16:13 Lipase 20 U/L (22-51) L 01/05/23 16:13 TSH 1.05 uIU/mL (0.34-5.60) 01/05/23 16:13 Urine Color YELLOW 01/05/23 16:43 Urine Clarity CLOUDY (CLEAR) 01/05/23 16:43 Urine pH 5.0 PH (5.0-7.5) 01/05/23 16:43 Ur Specific [place] >=1.030 (1.002-1.030) H 01/05/23 16:43 Urine Protein 100 mg/dL (NEGATIVE) H 01/05/23 16:43 Urine Glucose (UA) NEGATIVE mg/dL (NEGATIVE) 01/05/23 16:43 Urine Ketones 15 mg/dL (NEGATIVE) H 01/05/23 16:43 Urine Occult Blood LARGE (NEGATIVE) H 01/05/23 16:43 Urine Nitrite POSITIVE (NEGATIVE) H 01/05/23 16:43 Urine Bilirubin NEGATIVE (NEGATIVE) 01/05/23 16:43 Urine Urobilinogen 0.2 (NORMAL) E.U./dL (NORMAL) 01/05/23 16:43 Ur Leukocyte Esterase NEGATIVE (NEGATIVE) 01/05/23 16:43 Urine RBC 6-10 /HPF (0-5) H 01/05/23 16:43 Urine WBC 6-10 /HPF (0-5) H 01/05/23 16:43 Ur Squamous Epith Cells FEW Squamous (<= Few) 01/05/23 16:43 Amorphous Sediment Few /LPF 01/05/23 16:43 Urine Bacteria Many /HPF (None Seen) H 01/05/23 16:43 Urine Casts 6-10 Fine Granular /LPF 01/05/23 16:43 Ur Microscopic Review INDICATED 01/05/23 16:43 Urine Culture Comments INDICATED 01/05/23 16:43 Stl C. diff Tox B Gene NEGATIVE (NEGATIVE) 01/05/23 16:38 - Procedures Procedures: Procedures EXCISION OF CECUM, ENDO (11/09/15) RESECTION OF GALLBLADDER, PERCUTANEOUS ENDOSCOPIC APPROACH (10/21/17) Sepsis Event Note (H) - Evaluation Possible source of Sepsis: positive: Genitourinary ABX Reporting Has patient been on IV antibiotics over the past 48 hours?: Yes
[2023-01-07] MEDS: ALBUTEROL NEB 2.5 MG/3 ML INH SCH (14:33)
[2023-01-08 05:33] LABS: BASOPHILS # (AUTO) 0.1 10^3/uL (0.0-0.1); BASOPHILS % (AUTO) 0.8 %; EOSINOPHILS # (AUTO) 0.5 10^3/uL (0.0-0.7); EOSINOPHILS % (AUTO) 8.2 %; HGB - HEMOGLOBIN 9.2 g/dL (12.0-16.0); LYMPHOCYTES # (AUTO) 2.1 10^3/uL (1.5-3.5); LYMPHOCYTES % (AUTO) 33.9 %; MEAN CORPUSCULAR HEMOGLOBIN 25.4 pg (27.0-31.0); MEAN CORPUSCULAR HGB CONC 30.7 g/dL (32.0-36.0); MEAN CORPUSCULAR VOLUME 82.9 fL (81.0-99.0); MONOCYTES # (AUTO) 0.5 10^3/uL (0.0-1.0); MONOCYTES % (AUTO) 7.4 %; NEUTROPHILS # (AUTO) 3.1 10^3/uL (1.5-6.6); NEUTROPHILS % (AUTO) 49.2 %; PLT - PLATELET COUNT 171 10^3/uL (130-450); RED BLOOD COUNT 3.62 10^6/uL (4.20-5.40); RED CELL DISTRIBUTION WIDTH 17.9 % (12.0-15.0); WHITE BLOOD COUNT 6.3 x10^3/uL (4.8-10.8)
[2023-01-08 06:03] LABS: ALBUMIN 3.4 g/dL (3.2-5.5); ALBUMIN/GLOBULIN RATIO 1.1 (1.0-2.2); BILIRUBIN,TOTAL 0.4 mg/dL (0.2-1.0); CALCIUM 10.1 mg/dL (8.5-10.3); CREATININE 0.9 mg/dL (0.4-1.0); POTASSIUM 3.9 mmol/L (3.5-5.0); TOTAL PROTEIN 6.4 g/dL (6.7-8.2)
[2023-01-08] MEDS: FERROUS SULFATE 325 MG TABLET PO SCH ×2 (07:03→16:46)
[2023-01-08] MEDS: PANTOPRAZOLE 40 MG TABLET PO SCH (07:03)
[2023-01-08] MEDS: IPRATROPIUM/ALBUTEROL 3 ML NEB INH SCH ×2 (07:07→19:40)
[2023-01-08] MEDS: SODIUM CHLORIDE 0.9% 1,000 ML IV SCH (07:43)
[2023-01-08] MEDS: ACETAMINOPHEN 325 MG TABLET PO PRN ×2 (07:52→16:46)
[2023-01-08] MEDS: SOLIFENACIN SUCCINATE 5 MG TABLET PO SCH (08:27)
[2023-01-08] MEDS: ASCORBIC ACID 500 MG TABLET PO SCH (08:28)
[2023-01-08] MEDS: POTASSIUM CHLORIDE 20 MEQ TABLET PO SCH (08:28)
[2023-01-08] MEDS: PRENATAL VITAMIN TABLET PO SCH (08:28)
[2023-01-08] MEDS: SACCHAROMYCES BOULARDII 250 MG CAPSULE PO SCH ×2 (08:28→16:46)
[2023-01-08] MEDS: HEPARIN 5,000 UNIT/ML VIAL SUBQ SCH ×2 (08:29→21:18)
[2023-01-08] MEDS: cefTRIAXone 1 GM in SODIUM CHLORIDE 0.9% MINIBAG 100 ML IV SCH (08:32)
[2023-01-08] MEDS: hydrALAZINE INJ 20 MG/ML VIAL IVP PRN (08:45)
[2023-01-08] MEDS: INSULIN LISPRO 300 UNIT/3 ML PEN SUBQ SCH ×4 (08:45→21:19)
[2023-01-08] MEDS: SODIUM CHLORIDE FLUSH 0.9% 10 ML SYRINGE IVP SCH ×2 (08:46→16:47)
[2023-01-08] MEDS ORDERED: LORazepam 0.5 MG TABLET PO PRN (10:52)
[2023-01-08] MEDS ORDERED: LORazepam 1 MG TABLET PO PRN ×2 (10:53→10:55)
[2023-01-08] MEDS ORDERED: LABETALOL 20 MG/4 ML SYRINGE IVP ONE (10:57)
--- NOTE | 2023-01-08 11:44 | PROVIDER PROGRESS NOTE ---
Assessment/Plan - Problem List (1) Rhabdomyolysis Assessment/Plan: improved. CK is down to 850 from yesterday 1700. patient report She was laying on the floor for 6 to 7 hours At home from her fall. Skin of left arm with bruise and skin is closing and healing now. pt has hx of left freeze shoulder with limited ROM. Pt report she has no other injury. CT of head without acute process. CK is still over 1700. Patient's kidney function had significantly improved. Creatinine is 1.0 from 3.3 from admission. We will continue gentle intravenous fluids, continue laboratory monitoring Consult with physical therapist and occupational therapist. 2. Toxic metabolic encephalopathy due to sepsis. Significantly improved with alert and oriented plus two. CT of head show no acute process. pt has no focal neurological deficits. In the outpatient setting, I do not know what her baseline would be. I would expect her to continue to improve as her infection resolves. 3. Sepsis with shock. resolved. WBC became normal. Lactic acid was never elevated. Tachycardia has resolved. As such, sepsis criteria have resolved, and shock has resolved. 4. E. coli UTI. Patient is on empiric ceftriaxone therapy. UA culture show E.coli with panosensitive to antibiotics. CT of the abdomen was already done to make sure she did not have obstruction. She does have a single left kidney cyst that is nonobstructing. 5. Acute on chronic kidney injury. resolved, creatinine became 1.0 on today. 6. Transaminitis due to shock liver. That is also currently improving. Admitting telemedicine physician recommended hepatitis panel and ultrasound. Hepatitis panel was not done, and abdominal ultrasound has fatty liver, no biliary duct dilation. And left kidney stones. I will hold off on doing hepatitis panel since she is rapidly improving. pt denies drinking of alcohol. 7. Possible new onset diabetes mellitus. Glucose in the ER was 205. This morning is 134. A1c is 6.3%. Most likely she has type 2 diabetes mellitus, but not needing medications. With the stress of sepsis, she has elevated sugar. She does not require sliding scale insulin. We will monitor this and start insulin if glucose goes above 180. 8. Anemia. Iron was low at 20, TIBC 472, percent saturation 4, transferrin 37. TSH is 1.05. She is fecal occult blood negative. She was already started on oral iron last night. She will need follow-up with her primary care provider to complete the work-up. 9. History of falls at home. PT and OT will work with pt and recommend to SNF, consult with social media community manager for d/c planning 10. Movement disorder. She is not on medication such as Reglan, and son feels that this is baseline status for mom. He does not remember if she is ever taken antipsychotics. 11 wound at left arm. the wound from her fall at left elbow seems infected with yellow drainage. wound culture continue antibiotics nurse has daily dressing change for pt 12, anxiety pt present anxiety, we will add ativan PRN. pt denies alcohol drink at home 13. HTN, likely caused by her anxiety add PRN hydralazine and labetolol continue vital sign monitor closely 14. weakness/frequent fall at home consulted with PT, and recommended to SNF - Current Meds Current Meds: Current Medications Generic Name Dose Route Start Last Admin Trade Name Freq PRN Reason Stop Dose Admin Acetaminophen 650 mg 01/07/23 08:31 01/08/23 07:52 Acetaminophen 325 Mg Tablet PO 650 mg Q4HR PRN Administration Pain 1-4 or Fever > 38C Albuterol/Ipratropium 3 ml 01/05/23 21:00 01/08/23 07:07 Ipratropium/Albuterol 3 Ml Neb INH 3 ml BID LESLEE Administration Ascorbic Acid 500 mg 01/06/23 09:00 01/08/23 08:28 Ascorbic Acid 500 Mg Tablet PO 500 mg DAILY LESLEE Administration Ferrous Sulfate 325 mg 01/06/23 08:00 01/08/23 07:03 Ferrous Sulfate 325 Mg Tablet PO 325 mg BIDWM LESLEE Administration Heparin Sodium (Porcine) 5,000 unit 01/05/23 21:00 01/08/23 08:29 Heparin 5,000 Unit/Ml Vial SUBQ 5,000 unit BID LESLEE Administration Hydralazine HCl 10 mg 01/08/23 08:24 01/08/23 08:45 Hydralazine Inj 20 Mg/Ml Vial IVP 10 mg Q6H PRN Administration Hypertensive Emergency Ceftriaxone Sodium 1 gm/ 100 mls @ 200 mls/hr 01/06/23 09:00 01/08/23 09:02 Sodium Chloride IV 01/13/23 08:59 Infused DAILY LESLEE Infusion Sodium Chloride 1,000 mls @ 100 mls/hr 01/05/23 20:00 01/08/23 07:43 Normal Saline 0.9% IV 100 mls/hr .Q10H LESLEE Administration Insulin Human Lispro 1 - 5 unit 01/05/23 21:00 01/08/23 08:45 Insulin Lispro 300 Unit/3 Ml Pen SUBQ Not Given 0800,1200,1700,2100 [facility] Protocol Pantoprazole Sodium 40 mg 01/06/23 07:00 01/08/23 07:03 Pantoprazole 40 Mg Tablet PO 40 mg QDAC LESLEE Administration Potassium Chloride 40 meq 01/06/23 10:00 01/08/23 08:28 Potassium Chloride 20 Meq Tablet PO 40 meq DAILYWM LESLEE Administration Multivit/Folic Acid/Iron 1 tab 01/07/23 09:00 01/08/23 08:28 Vitamin Tablet PO 1 tab DAILY LESLEE Administration Saccharomyces Boulardii 250 mg 01/06/23 08:00 01/08/23 08:28 Saccharomyces Boulardii 250 Mg Capsule PO 250 mg BIDWM LESLEE Administration Sodium Chloride 10 ml 01/06/23 01:00 01/08/23 08:46 Sodium Chloride Flush 0.9% 10 Ml Syringe IVP 10 ml 0100,0900,1700 LESLEE Administration Solifenacin 10 mg 01/06/23 09:00 01/08/23 08:27 Solifenacin Succinate 5 Mg Tablet PO 10 mg DAILY LESLEE Administration - Lab Result Fish Bone Diagrams: 01/08/23 05:12 01/08/23 05:12 - Additional Planning My Orders: My Active Orders 01/07/23 Lunch Carb-controlled Diet [DIET] 01/07/23 12:03 Albuterol 2.5 mg INH RTQ4H PRN 01/08/23 CUL,WOUND (AEROBIC) [RM] Urgent 01/08/23 08:24 hydrALAZINE INJ [Apresoline Inj] 10 mg IVP Q6H PRN 01/08/23 09:27 Wound Care - MAC [RC] .ONCE 01/08/23 10:55 LORazepam [Ativan] 1 mg PO Q8H PRN 01/09/23 05:00 CBC - COMP BLD CT W/AUTO DIFF [HEME] DAILYLAB CK- CREATINE KINASE [CHEM] DAILYLAB CMP [COMPREHENSIVE METABOLIC PANEL] [CHEM] DAILYLAB Subjective - Subjective Patient Reports: Other (axiety and restless) Objective Vital Signs: Vital Signs - 24 hr 01/07/23 01/07/23 01/07/23 13:45 16:00 20:45 Temperature 37.2 C Heart Rate 91 Heart Rate [ 87 Brachial] Heart Rate [ 104 H Sitting] Heart Rate [ 113 H Standing] Respiratory 16 18 Rate Blood Pressure Blood Pressure 153/68 H [Right Brachial artery] Blood Pressure 89/43 L [Sitting] Blood Pressure 130/62 [Standing] O2 Saturation 98 O2 Saturation [ 95 Sitting] 01/08/23 01/08/23 01/08/23 00:42 07:12 07:45 Temperature 37.0 C 36.9 C Heart Rate 76 Heart Rate [ 87 79 Brachial] Heart Rate [ Sitting] Heart Rate [ Standing] Respiratory 16 17 20 Rate Blood Pressure Blood Pressure 160/79 H 179/77 H [Right Brachial artery] Blood Pressure [Sitting] Blood Pressure [Standing] O2 Saturation 97 97 O2 Saturation [ Sitting] 01/08/23 01/08/23 01/08/23 08:44 08:45 08:50 Temperature Heart Rate Heart Rate [ 85 85 Brachial] Heart Rate [ Sitting] Heart Rate [ Standing] Respiratory Rate Blood Pressure 178/68 H Blood Pressure 178/68 H 185/82 H [Right Brachial artery] Blood Pressure [Sitting] Blood Pressure [Standing] O2 Saturation O2 Saturation [ Sitting] 01/08/23 01/08/23 01/08/23 08:55 09:00 09:15 Temperature 36.7 C Heart Rate Heart Rate [ 84 89 94 Brachial] Heart Rate [ Sitting] Heart Rate [ Standing] Respiratory Rate Blood Pressure 191/60 H Blood Pressure 185/72 H 184/81 H 190/73 H [Right Brachial artery] Blood Pressure [Sitting] Blood Pressure [Standing] O2 Saturation O2 Saturation [ Sitting] 01/08/23 01/08/23 01/08/23 09:30 10:37 11:35 Temperature Heart Rate Heart Rate [ 82 97 98 Brachial] Heart Rate [ Sitting] Heart Rate [ Standing] Respiratory Rate Blood Pressure Blood Pressure 191/60 H 182/73 H 170/72 H [Right Brachial artery] Blood Pressure [Sitting] Blood Pressure [Standing] O2 Saturation O2 Saturation [ Sitting] Oxygen O2 Source Room air I&O (Last 24 Hrs): Intake and Output Totals x24h 01/06/23 01/07/23 01/08/23 23:59 23:59 23:59 Intake Total 3865.000 3684 1540 Output Total 650 2050 1100 Balance 3215.000 1634 440 General: Alert, Mild distress HEENT: Atraumatic Neck: Supple Lymphatic: no adenopathy Neuro: Alert, Non Focal Cardiovascular: Regular rate, Normal S1 Respiratory: Chest non-tender, No respiratory distress Abdomen: Normal bowel sounds, Soft - Results Results: Laboratory Results WBC 6.3 x10^3/uL (4.8-10.8) 01/08/23 05:12 RBC 3.62 10^6/uL (4.20-5.40) L 01/08/23 05:12 Hgb 9.2 g/dL (12.0-16.0) L 01/08/23 05:12 Hct 30.0 % (37.0-47.0) L 01/08/23 05:12 MCV 82.9 fL (81.0-99.0) 01/08/23 05:12 MCH 25.4 pg (27.0-31.0) L 01/08/23 05:12 MCHC 30.7 g/dL (32.0-36.0) L 01/08/23 05:12 RDW 17.9 % (12.0-15.0) H 01/08/23 05:12 Plt Count 171 10^3/uL (130-450) 01/08/23 05:12 MPV 13.0 fL (7.9-10.8) H 01/08/23 05:12 Neut # (Auto) 3.1 10^3/uL (1.5-6.6) 01/08/23 05:12 Lymph # (Auto) 2.1 10^3/uL (1.5-3.5) 01/08/23 05:12 [place]ar # (Auto) 0.5 10^3/uL (0.0-1.0) 01/08/23 05:12 Eos # (Auto) 0.5 10^3/uL (0.0-0.7) 01/08/23 05:12 Baso # (Auto) 0.1 10^3/uL (0.0-0.1) 01/08/23 05:12 Absolute Nucleated RBC 0.00 x10^3/uL 01/08/23 05:12 Total Counted 100 01/05/23 16:13 Band Neuts % (Manual) 3 % (0-10) 01/05/23 16:13 Abnorm Lymph % (Manual) 0 % 01/05/23 16:13 Nucleated RBC % 0.0 /100WBC 01/08/23 05:12 Neutrophils # (Manual) 19.2 10^3/uL (1.5-6.6) H 01/05/23 16:13 Lymphocytes # (Manual) 1.6 10^3/uL (1.5-3.5) 01/05/23 16:13 Monocytes # (Manual) 1.3 10^3/uL (0.0-1.0) H 01/05/23 16:13 Eosinophils # (Manual) 0.2 10^3/uL (0-0.7) 01/05/23 16:13 Basophils # (Manual) 0.0 10^3/uL (0-0.1) 01/05/23 16:13 Differential Comment MANUAL DIFFERENTIAL 01/05/23 16:13 Platelet Estimate NORMAL (130-450,000) (NORMAL) 01/05/23 16:13 Platelet Morphology NORMAL APPEARANCE (NORMAL) 01/05/23 16:13 RBC Morph Micro Appear NORMAL APPEARANCE (NORMAL) 01/05/23 16:13 Sodium 141 mmol/L (135-145) 01/08/23 05:12 Potassium 3.9 mmol/L (3.5-5.0) 01/08/23 05:12 Chloride 113 mmol/L (101-111) H 01/08/23 05:12 Carbon Dioxide 25 mmol/L (21-32) 01/08/23 05:12 Anion Gap 3.0 (6-13) L 01/08/23 05:12 BUN 10 mg/dL (6-20) 01/08/23 05:12 Creatinine 0.9 mg/dL (0.4-1.0) 01/08/23 05:12 Estimated GFR (MDRD) 63 (>89) L 01/08/23 05:12 Glucose 124 mg/dL (70-100) H 01/08/23 05:12 POC Whole Bld Glucose 125 mg/dL (70 - 100) H 01/08/23 11:25 Estimat Average Glucose 134 mg/dL (70-100) H 01/05/23 16:13 Hemoglobin A1c % 6.3 % (4.27-6.07) H 01/05/23 16:13 Lactic Acid 1.1 mmol/L (0.5-2.2) 01/05/23 22:56 Calcium 10.1 mg/dL (8.5-10.3) 01/08/23 05:12 Phosphorus 2.7 mg/dL (2.5-4.6) 01/06/23 05:39 Magnesium 1.7 mg/dL (1.7-2.8) 01/07/23 11:05 Iron 20 ug/dL (28-170) L 01/05/23 16:13 TIBC 472 ug/dL (250-450) H 01/05/23 16:13 % Saturation 4 % (20-50) L 01/05/23 16:13 Transferrin 337 mg/dL (192-382) 01/05/23 16:13 Total Bilirubin 0.4 mg/dL (0.2-1.0) 01/08/23 05:12 AST 77 IU/L (10-42) H 01/08/23 05:12 ALT 86 IU/L (10-60) H 01/08/23 05:12 Alkaline Phosphatase 56 IU/L (42-121) 01/08/23 05:12 Ammonia < 10.0 umol/L (7-35) 01/05/23 22:56 Total Creatine Kinase 860 IU/L (22-269) H 01/08/23 05:12 B-Natriuretic Peptide 34 pg/mL (5-100) 01/05/23 16:13 Total Protein 6.4 g/dL (6.7-8.2) L 01/08/23 05:12 Albumin 3.4 g/dL (3.2-5.5) 01/08/23 05:12 Globulin 3.0 g/dL (2.1-4.2) 01/08/23 05:12 Albumin/Globulin Ratio 1.1 (1.0-2.2) 01/08/23 05:12 Triglycerides 272 mg/dL (-149) H 01/05/23 16:13 Cholesterol 112 mg/dL (-199) 01/05/23 16:13 LDL Cholesterol, Calc 34 mg/dL (-129) 01/05/23 16:13 VLDL Cholesterol 54 mg/dL 01/05/23 16:13 HDL Cholesterol 24 mg/dL (60-) L 01/05/23 16:13 LDL/HDL Ratio 1.4 (<4.4) 01/05/23 16:13 Cholesterol/HDL Ratio 4.7 (<4.4) 01/05/23 16:13 Lipase 20 U/L (22-51) L 01/05/23 16:13 TSH 1.05 uIU/mL (0.34-5.60) 01/05/23 16:13 Urine Color YELLOW 01/05/23 16:43 Urine Clarity CLOUDY (CLEAR) 01/05/23 16:43 Urine pH 5.0 PH (5.0-7.5) 01/05/23 16:43 Ur Specific [place] >=1.030 (1.002-1.030) H 01/05/23 16:43 Urine Protein 100 mg/dL (NEGATIVE) H 01/05/23 16:43 Urine Glucose (UA) NEGATIVE mg/dL (NEGATIVE) 01/05/23 16:43 Urine Ketones 15 mg/dL (NEGATIVE) H 01/05/23 16:43 Urine Occult Blood LARGE (NEGATIVE) H 01/05/23 16:43 Urine Nitrite POSITIVE (NEGATIVE) H 01/05/23 16:43 Urine Bilirubin NEGATIVE (NEGATIVE) 01/05/23 16:43 Urine Urobilinogen 0.2 (NORMAL) E.U./dL (NORMAL) 01/05/23 16:43 Ur Leukocyte Esterase NEGATIVE (NEGATIVE) 01/05/23 16:43 Urine RBC 6-10 /HPF (0-5) H 01/05/23 16:43 Urine WBC 6-10 /HPF (0-5) H 01/05/23 16:43 Ur Squamous Epith Cells FEW Squamous (<= Few) 01/05/23 16:43 Amorphous Sediment Few /LPF 01/05/23 16:43 Urine Bacteria Many /HPF (None Seen) H 01/05/23 16:43 Urine Casts 6-10 Fine Granular /LPF 01/05/23 16:43 Ur Microscopic Review INDICATED 01/05/23 16:43 Urine Culture Comments INDICATED 01/05/23 16:43 Stl C. diff Tox B Gene NEGATIVE (NEGATIVE) 01/05/23 16:38 - Procedures Procedures: Procedures EXCISION OF CECUM, ENDO (11/09/15) RESECTION OF GALLBLADDER, PERCUTANEOUS ENDOSCOPIC APPROACH (10/21/17) Sepsis Event Note (H) - Evaluation Possible source of Sepsis: positive: Genitourinary ABX Reporting Has patient been on IV antibiotics over the past 48 hours?: Yes
[2023-01-08] MEDS: ALBUTEROL NEB 2.5 MG/3 ML INH PRN (12:43)
[2023-01-08] MEDS ORDERED: METOPROLOL SUCCINATE 25 MG TABLET PO SCH (17:01)
[2023-01-08] MEDS ORDERED: lisinopriL 5 MG TABLET PO SCH (21:00)
[2023-01-08] MEDS: ATORVASTATIN 40 MG TABLET PO SCH (21:18)
[2023-01-08] MEDS: AMITRIPTYLINE 10 MG TABLET PO SCH (21:18)
[2023-01-09] MEDS: hydrALAZINE INJ 20 MG/ML VIAL IVP PRN (00:16)
[2023-01-09] MEDS: SODIUM CHLORIDE FLUSH 0.9% 10 ML SYRINGE IVP SCH ×3 (00:19→16:54)
[2023-01-09] MEDS: ACETAMINOPHEN 325 MG TABLET PO PRN ×2 (02:21→13:02)
[2023-01-09 04:42] LABS: BASOPHILS # (AUTO) 0.1 10^3/uL (0.0-0.1); BASOPHILS % (AUTO) 0.8 %; EOSINOPHILS # (AUTO) 0.6 10^3/uL (0.0-0.7); EOSINOPHILS % (AUTO) 7.4 %; HGB - HEMOGLOBIN 9.7 g/dL (12.0-16.0); LYMPHOCYTES # (AUTO) 2.3 10^3/uL (1.5-3.5); LYMPHOCYTES % (AUTO) 29.7 %; MEAN CORPUSCULAR HEMOGLOBIN 25.2 pg (27.0-31.0); MEAN CORPUSCULAR HGB CONC 30.3 g/dL (32.0-36.0); MEAN CORPUSCULAR VOLUME 83.1 fL (81.0-99.0); MEAN PLATELET VOLUME 12.8 fL (7.9-10.8); MONOCYTES # (AUTO) 0.6 10^3/uL (0.0-1.0); MONOCYTES % (AUTO) 8.5 %; NEUTROPHILS % (AUTO) 52.4 %; PLT - PLATELET COUNT 205 10^3/uL (130-450); RED BLOOD COUNT 3.85 10^6/uL (4.20-5.40); RED CELL DISTRIBUTION WIDTH 17.9 % (12.0-15.0); WHITE BLOOD COUNT 7.6 x10^3/uL (4.8-10.8)
[2023-01-09 04:54] LABS: ALBUMIN 3.5 g/dL (3.2-5.5); ALBUMIN/GLOBULIN RATIO 1.3 (1.0-2.2); BILIRUBIN,TOTAL 0.3 mg/dL (0.2-1.0); CALCIUM 10.8 mg/dL (8.5-10.3); TOTAL PROTEIN 6.3 g/dL (6.7-8.2)
[2023-01-09] MEDS: PANTOPRAZOLE 40 MG TABLET PO SCH (06:29)
[2023-01-09] MEDS: IPRATROPIUM/ALBUTEROL 3 ML NEB INH SCH (07:27)
[2023-01-09] MEDS: SOLIFENACIN SUCCINATE 5 MG TABLET PO SCH (09:05)
[2023-01-09] MEDS: METOPROLOL SUCCINATE 25 MG TABLET PO SCH (09:05)
[2023-01-09] MEDS: FERROUS SULFATE 325 MG TABLET PO SCH ×2 (09:06→16:54)
[2023-01-09] MEDS: POTASSIUM CHLORIDE 20 MEQ TABLET PO SCH (09:06)
[2023-01-09] MEDS: cefTRIAXone 1 GM in SODIUM CHLORIDE 0.9% MINIBAG 100 ML IV SCH (09:06)
[2023-01-09] MEDS: ASCORBIC ACID 500 MG TABLET PO SCH (09:06)
[2023-01-09] MEDS: PRENATAL VITAMIN TABLET PO SCH (09:06)
[2023-01-09] MEDS: HEPARIN 5,000 UNIT/ML VIAL SUBQ SCH ×2 (09:07→21:14)
--- NOTE | 2023-01-09 11:43 | PROVIDER PROGRESS NOTE ---
Assessment/Plan - Problem List (1) Rhabdomyolysis Assessment/Plan: Assessment/Plan: resolved. CK is trending town to 400 arrange. creatinine 1.0 Consult with physical therapist and occupational therapist and prevention of her falls 2. Toxic metabolic encephalopathy due to sepsis. Significantly improved with alert and oriented. pt report she feel better. CT of head show no acute process. pt has no focal neurological deficits. 3. Sepsis with shock. resolved. WBC became normal. Lactic acid was never elevated. Tachycardia has resolved. As such, sepsis criteria have resolved, and shock has resolved. 4. E. coli UTI. Patient is on empiric ceftriaxone therapy. UA culture show E.coli with panosensitive to antibiotics. CT of the abdomen was already done to make sure she did not have obstruction. She does have a single left kidney cyst that is nonobstructing. 5. Acute on chronic kidney injury. resolved, creatinine became 1.0 on today. 6. Transaminitis due to shock liver. improved. pt denies drinking of alcohol. 7. pre-diabetes mellitus. A1c is 6.3%. She does not require sliding scale insulin. We will monitor this and start insulin if glucose goes above 180. 8. Anemia. Iron was low at 20, TIBC 472, percent saturation 4, transferrin 37. TSH is 1.05. She is fecal occult blood negative. She was already started on oral iron last night. She will need follow-up with her primary care provider to complete the work-up. 9. History of falls at home. PT and OT will work with pt and recommend to SNF, consult with perinatal social worker for d/c planning 10. Movement disorder. She is not on medication such as Reglan, and son feels that this is baseline status for mom. He does not remember if she is ever taken antipsychotics. 11 wound at left arm. the wound from her fall at left elbow seems infected with yellow drainage. wound culture is pending continue antibiotics nurse has daily dressing change for pt 12, anxiety pt present anxiety, we will add ativan PRN. pt denies alcohol drink at home 13. HTN, increase the dosage of lis(1) Rhabdomyolysis Assessment/Plan: improved. CK is down to 850 from yesterday 1700. patient report She was laying on the floor for 6 to 7 hours At home from her fall. Skin of left arm with bruise and skin is closing and healing now. pt has hx of left freeze shoulder with limited ROM. Pt report she has no other injury. CT of head without acute process. CK is still over 1700. Patient's kidney function had significantly improved. Creatinine is 1.0 from 3.3 from admission. We will continue gentle intravenous fluids, continue laboratory monitoring Consult with physical therapist and occupational therapist. 2. Toxic metabolic encephalopathy due to sepsis. Significantly improved with alert and oriented plus two. CT of head show no acute process. pt has no focal neurological deficits. In the outpatient setting, I do not know what her baseline would be. I would expect her to continue to improve as her infection resolves. 3. Sepsis with shock. resolved. WBC became normal. Lactic acid was never elevated. Tachycardia has resolved. As such, sepsis criteria have resolved, and shock has resolved. 4. E. coli UTI. Patient is on empiric ceftriaxone therapy. UA culture show E.coli with panosensitive to antibiotics. CT of the abdomen was already done to make sure she did not have obstruction. She does have a single left kidney cyst that is nonobstructing. 5. Acute on chronic kidney injury. resolved, creatinine became 1.0 on today. 6. Transaminitis due to shock liver. That is also currently improving. Admi tting telemedicine physician recommended hepatitis panel and ultrasound. Hepatitis panel was not done, and abdominal ultrasound has fatty liver, no biliary duct dilation. And left kidney stones. I will hold off on doing hepatitis panel since she is rapidly improving. pt denies drinking of alcohol. 7. Possible new onset diabetes mellitus. Glucose in the ER was 205. This morning is 134. A1c is 6.3%. Most likely she has type 2 diabetes mellitus, but not needing medications. With the stress of sepsis, she has elevated sugar. She does not require sliding scale insulin. We will monitor this and start insulin if glucose goes above 180. 8. Anemia. Iron was low at 20, TIBC 472, percent saturation 4, transferrin 37. TSH is 1.05. She is fecal occult blood negative. She was already started on oral iron last night. She will need follow-up with her primary care provider to complete the work-up. 9. History of falls at home. PT and OT will work with pt and recommend to SNF, consult with perinatal social worker for d/c planning 10. Movement disorder. She is not on medication such as Reglan, and son feels that this is baseline status for mom. He does not remember if she is ever taken antipsychotics. 11 wound at left arm. the wound from her fall at left elbow seems infected with yellow drainage. wound culture continue antibiotics nurse has daily dressing change for pt 12, anxiety pt present anxiety, we will add ativan PRN. pt denies alcohol drink at home 13. HTN, Increase dosage of lisinopril and metoprololIncrease dosage of lisinopril and metoprolol, continue vital signs monitoring add PRN hydralazine and labetolol continue vital sign monitor closely - Current Meds Current Meds: Current Medications Generic Name Dose Route Start Last Admin Trade Name Freq PRN Reason Stop Dose Admin Acetaminophen 650 mg 01/07/23 08:31 01/09/23 02:21 Acetaminophen 325 Mg Tablet PO 650 mg Q4HR PRN Administration Pain 1-4 or Fever > 38C Albuterol 2.5 mg 01/07/23 12:03 01/08/23 12:43 Albuterol Neb 2.5 Mg/3 Ml INH 2.5 mg RTQ4H PRN Administration Shortness of Air/Wheezing Albuterol/Ipratropium 3 ml 01/05/23 21:00 01/09/23 07:27 Ipratropium/Albuterol 3 Ml Neb INH 3 ml BID LESLEE Administration Amitriptyline HCl 10 mg 01/08/23 21:00 01/08/23 21:18 Amitriptyline 10 Mg Tablet PO 10 mg QPM LESLEE Administration Ascorbic Acid 500 mg 01/06/23 09:00 01/09/23 09:06 Ascorbic Acid 500 Mg Tablet PO 500 mg DAILY LESLEE Administration Atorvastatin Calcium 80 mg 01/08/23 21:00 01/08/23 21:18 Atorvastatin 40 Mg Tablet PO 80 mg QPM LESLEE Administration Ferrous Sulfate 325 mg 01/06/23 08:00 01/09/23 09:06 Ferrous Sulfate 325 Mg Tablet PO 325 mg BIDWM LESLEE Administration Heparin Sodium (Porcine) 5,000 unit 01/05/23 21:00 01/09/23 09:07 Heparin 5,000 Unit/Ml Vial SUBQ 5,000 unit BID LESLEE Administration Hydralazine HCl 10 mg 01/08/23 08:24 01/09/23 00:16 Hydralazine Inj 20 Mg/Ml Vial IVP 10 mg Q6H PRN Administration Hypertensive Emergency Ceftriaxone Sodium 1 gm/ 100 mls @ 200 mls/hr 01/06/23 09:00 01/09/23 09:36 Sodium Chloride IV 01/13/23 08:59 Infused DAILY LESLEE Infusion Insulin Human Lispro 1 - 5 unit 01/05/23 21:00 01/08/23 21:19 Insulin Lispro 300 Unit/3 Ml Pen SUBQ Not Given 0800,1200,1700,2100 [facility] Protocol Metoprolol Succinate 50 mg 01/09/23 09:00 01/09/23 09:05 Metoprolol Succinate 25 Mg Tablet PO 50 mg DAILY LESLEE Administration Pantoprazole Sodium 40 mg 01/06/23 07:00 01/09/23 06:29 Pantoprazole 40 Mg Tablet PO 40 mg QDAC LESLEE Administration Potassium Chloride 40 meq 01/06/23 10:00 01/09/23 09:06 Potassium Chloride 20 Meq Tablet PO 40 meq DAILYWM [facility]LEE Administration Multivit/Folic Acid/Iron 1 tab 01/07/23 09:00 01/09/23 09:06 Vitamin Tablet PO 1 tab DAILY LESLEE Administration Saccharomyces Boulardii 250 mg 01/06/23 08:00 01/08/23 16:46 Saccharomyces Boulardii 250 Mg Capsule PO 250 mg BIDWM LESLEE Administration Sodium Chloride 10 ml 01/06/23 01:00 01/09/23 00:19 Sodium Chloride Flush 0.9% 10 Ml Syringe IVP 10 ml 0100,0900,1700 L[facility]LEE Administration Solifenacin 10 mg 01/06/23 09:00 01/09/23 09:05 Solifenacin Succinate 5 Mg Tablet PO 10 mg DAILY LESLEE Administration - Lab Result Fish Bone Diagrams: 01/09/23 04:31 01/09/23 04:31 - Additional Planning My Orders: My Active Orders 01/08/23 10:55 LORazepam [Ativan] 1 mg PO Q8H PRN 01/08/23 14:05 CUL,WOUND (AEROBIC) [RM] Urgent 01/08/23 17:00 Cyclobenzaprine [Flexeril] 10 mg PO TID PRN 01/08/23 21:00 Amitriptyline [Elavil] 10 mg PO QPM Atorvastatin [Lipitor] 80 mg PO QPM 01/09/23 09:00 Metoprolol Succinate [Toprol Xl] 50 mg PO DAILY 01/09/23 21:00 lisinopriL [Zestril] 20 mg PO QPM Subjective - Subjective Patient Reports: Feeling Better Objective Vital Signs: Vital Signs - 24 hr 01/08/23 01/08/23 01/08/23 11:45 11:50 12:05 Temperature Heart Rate Heart Rate [ Brachial] Respiratory Rate Blood Pressure Blood Pressure 140/63 H [Left Brachial artery] Blood Pressure 141/100 H 112/62 [Right Brachial artery] O2 Saturation 01/08/23 01/08/23 01/08/23 12:20 12:35 12:43 Temperature Heart Rate 80 Heart Rate [ Brachial] Respiratory 19 Rate Blood Pressure Blood Pressure [Left Brachial artery] Blood Pressure 159/70 H 145/65 H [Right Brachial artery] O2 Saturation 01/08/23 01/08/23 01/08/23 16:00 16:07 19:40 Temperature 36.6 C Heart Rate 82 Heart Rate [ 83 Brachial] Respiratory 16 20 Rate Blood Pressure Blood Pressure [Left Brachial artery] Blood Pressure 162/72 H 167/62 H [Right Brachial artery] O2 Saturation 99 01/08/23 01/09/23 01/09/23 21:15 00:07 00:16 Temperature 36.7 C Heart Rate Heart Rate [ 87 84 Brachial] Respiratory 18 Rate Blood Pressure 194/70 H Blood Pressure [Left Brachial artery] Blood Pressure 167/62 H 194/70 H [Right Brachial artery] O2 Saturation 99 01/09/23 01/09/23 01/09/23 00:21 00:26 00:31 Temperature Heart Rate Heart Rate [ 84 88 87 Brachial] Respiratory Rate Blood Pressure Blood Pressure [Left Brachial artery] Blood Pressure 159/75 H 169/70 H 169/74 H [Right Brachial artery] O2 Saturation 01/09/23 01/09/23 01/09/23 00:46 01:01 01:16 Temperature Heart Rate Heart Rate [ 86 85 83 Brachial] Respiratory Rate Blood Pressure 171/70 H Blood Pressure [Left Brachial artery] Blood Pressure 159/67 H 182/67 H 171/70 H [Right Brachial artery] O2 Saturation 01/09/23 01/09/23 01/09/23 02:00 07:28 08:00 Temperature 36.6 C Heart Rate 90 Heart Rate [ 86 89 Brachial] Respiratory 16 18 Rate Blood Pressure Blood Pressure [Left Brachial artery] Blood Pressure 195/74 H 168/76 H [Right Brachial artery] O2 Saturation 96 Oxygen O2 Source Room air I&O (Last 24 Hrs): Intake and Output Totals x24h 01/07/23 01/08/23 01/09/23 23:59 23:59 23:59 Intake Total 3684 3410 220 Output Total 2050 1950 1900 Balance 1634 1460 -1680 General: Alert, No acute distress HEENT: Atraumatic Neck: Supple Lymphatic: no adenopathy Neuro: Alert, Non Focal Cardiovascular: Regular rate, Normal S1, Normal S2 Respiratory: Chest non-tender, No respiratory distress Abdomen: Normal bowel sounds, Soft Extremities: No clubbing - Results Results: Laboratory Results WBC 7.6 x10^3/uL (4.8-10.8) 01/09/23 04:31 RBC 3.85 10^6/uL (4.20-5.40) L 01/09/23 04:31 Hgb 9.7 g/dL (12.0-16.0) L 01/09/23 04:31 Hct 32.0 % (37.0-47.0) L 01/09/23 04:31 MCV 83.1 fL (81.0-99.0) 01/09/23 04:31 MCH 25.2 pg (27.0-31.0) L 01/09/23 04:31 MCHC 30.3 g/dL (32.0-36.0) L 01/09/23 04:31 RDW 17.9 % (12.0-15.0) H 01/09/23 04:31 Plt Count 205 10^3/uL (130-450) 01/09/23 04:31 MPV 12.8 fL (7.9-10.8) H 01/09/23 04:31 Neut # (Auto) 4.0 10^3/uL (1.5-6.6) 01/09/23 04:31 Lymph # (Auto) 2.3 10^3/uL (1.5-3.5) 01/09/23 04:31 Harper # (Auto) 0.6 10^3/uL (0.0-1.0) 01/09/23 04:31 Eos # (Auto) 0.6 10^3/uL (0.0-0.7) 01/09/23 04:31 Baso # (Auto) 0.1 10^3/uL (0.0-0.1) 01/09/23 04:31 Absolute Nucleated RBC 0.00 x10^3/uL 01/09/23 04:31 Total Counted 100 01/05/23 16:13 Band Neuts % (Manual) 3 % (0-10) 01/05/23 16:13 Abnorm Lymph % (Manual) 0 % 01/05/23 16:13 Nucleated RBC % 0.0 /100WBC 01/09/23 04:31 Neutrophils # (Manual) 19.2 10^3/uL (1.5-6.6) H 01/05/23 16:13 Lymphocytes # (Manual) 1.6 10^3/uL (1.5-3.5) 01/05/23 16:13 Monocytes # (Manual) 1.3 10^3/uL (0.0-1.0) H 01/05/23 16:13 Eosinophils # (Manual) 0.2 10^3/uL (0-0.7) 01/05/23 16:13 Basophils # (Manual) 0.0 10^3/uL (0-0.1) 01/05/23 16:13 Differential Comment MANUAL DIFFERENTIAL 01/05/23 16:13 Platelet Estimate NORMAL (130-450,000) (NORMAL) 01/05/23 16:13 Platelet Morphology NORMAL APPEARANCE (NORMAL) 01/05/23 16:13 RBC Morph Micro Appear NORMAL APPEARANCE (NORMAL) 01/05/23 16:13 Sodium 142 mmol/L (135-145) 01/09/23 04:31 Potassium 4.0 mmol/L (3.5-5.0) 01/09/23 04:31 Chloride 110 mmol/L (101-111) 01/09/23 04:31 Carbon Dioxide 24 mmol/L (21-32) 01/09/23 04:31 Anion Gap 8.0 (6-13) 01/09/23 04:31 BUN 11 mg/dL (6-20) 01/09/23 04:31 Creatinine 1.0 mg/dL (0.4-1.0) 01/09/23 04:31 Estimated GFR (MDRD) 55 (>89) L 01/09/23 04:31 Glucose 131 mg/dL (70-100) H 01/09/23 04:31 POC Whole Bld Glucose 129 mg/dL (70 - 100) H 01/09/23 11:16 Estimat Average Glucose 134 mg/dL (70-100) H 01/05/23 16:13 Hemoglobin A1c % 6.3 % (4.27-6.07) H 01/05/23 16:13 Lactic Acid 1.1 mmol/L (0.5-2.2) 01/05/23 22:56 Calcium 10.8 mg/dL (8.5-10.3) H 01/09/23 04:31 Phosphorus 2.7 mg/dL (2.5-4.6) 01/06/23 05:39 Magnesium 1.7 mg/dL (1.7-2.8) 01/07/23 11:05 Iron 20 ug/dL (28-170) L 01/05/23 16:13 TIBC 472 ug/dL (250-450) H 01/05/23 16:13 % Saturation 4 % (20-50) L 01/05/23 16:13 Transferrin 337 mg/dL (192-382) 01/05/23 16:13 Total Bilirubin 0.3 mg/dL (0.2-1.0) 01/09/23 04:31 AST 54 IU/L (10-42) H 01/09/23 04:31 ALT 74 IU/L (10-60) H 01/09/23 04:31 Alkaline Phosphatase 54 IU/L (42-121) 01/09/23 04:31 Ammonia < 10.0 umol/L (7-35) 01/05/23 22:56 Total Creatine Kinase 439 IU/L (22-269) H 01/09/23 04:31 B-Natriuretic Peptide 34 pg/mL (5-100) 01/05/23 16:13 Total Protein 6.3 g/dL (6.7-8.2) L 01/09/23 04:31 Albumin 3.5 g/dL (3.2-5.5) 01/09/23 04:31 Globulin 2.8 g/dL (2.1-4.2) 01/09/23 04:31 Albumin/Globulin Ratio 1.3 (1.0-2.2) 01/09/23 04:31 Triglycerides 272 mg/dL (-149) H 01/05/23 16:13 Cholesterol 112 mg/dL (-199) 01/05/23 16:13 LDL Cholesterol, Calc 34 mg/dL (-129) 01/05/23 16:13 VLDL Cholesterol 54 mg/dL 01/05/23 16:13 HDL Cholesterol 24 mg/dL (60-) L 01/05/23 16:13 LDL/HDL Ratio 1.4 (<4.4) 01/05/23 16:13 Cholesterol/HDL Ratio 4.7 (<4.4) 01/05/23 16:13 Lipase 20 U/L (22-51) L 01/05/23 16:13 TSH 1.05 uIU/mL (0.34-5.60) 01/05/23 16:13 Urine Color YELLOW 01/05/23 16:43 Urine Clarity CLOUDY (CLEAR) 01/05/23 16:43 Urine pH 5.0 PH (5.0-7.5) 01/05/23 16:43 Ur Specific [place] >=1.030 (1.002-1.030) H 01/05/23 16:43 Urine Protein 100 mg/dL (NEGATIVE) H 01/05/23 16:43 Urine Glucose (UA) NEGATIVE mg/dL (NEGATIVE) 01/05/23 16:43 Urine Ketones 15 mg/dL (NEGATIVE) H 01/05/23 16:43 Urine Occult Blood LARGE (NEGATIVE) H 01/05/23 16:43 Urine Nitrite POSITIVE (NEGATIVE) H 01/05/23 16:43 Urine Bilirubin NEGATIVE (NEGATIVE) 01/05/23 16:43 Urine Urobilinogen 0.2 (NORMAL) E.U./dL (NORMAL) 01/05/23 16:43 Ur Leukocyte Esterase NEGATIVE (NEGATIVE) 01/05/23 16:43 Urine RBC 6-10 /HPF (0-5) H 01/05/23 16:43 Urine WBC 6-10 /HPF (0-5) H 01/05/23 16:43 Ur Squamous Epith Cells FEW Squamous (<= Few) 01/05/23 16:43 Amorphous Sediment Few /LPF 01/05/23 16:43 Urine Bacteria Many /HPF (None Seen) H 01/05/23 16:43 Urine Casts 6-10 Fine Granular /LPF 01/05/23 16:43 Ur Microscopic Review INDICATED 01/05/23 16:43 Urine Culture Comments INDICATED 01/05/23 16:43 Stl C. diff Tox B Gene NEGATIVE (NEGATIVE) 01/05/23 16:38 - Procedures Procedures: Procedures EXCISION OF CECUM, ENDO (11/09/15) RESECTION OF GALLBLADDER, PERCUTANEOUS ENDOSCOPIC APPROACH (10/21/17) Sepsis Event Note (H) - Evaluation Possible source of Sepsis: positive: Genitourinary ABX Reporting Has patient been on IV antibiotics over the past 48 hours?: Yes Current Medications - Current Medications Current Medications: Active Medications Acetaminophen (Acetaminophen 325 Mg Tablet) 650 mg PO Q4HR PRN PRN Reason: Pain 1-4 or Fever > 38C Last Admin: 01/09/23 02:21 Dose: 650 mg Albuterol (Albuterol Neb 2.5 Mg/3 Ml) 2.5 mg INH RTQ4H PRN PRN Reason: Shortness of Air/Wheezing Last Admin: 01/08/23 12:43 Dose: 2.5 mg Albuterol/Ipratropium (Ipratropium/Albuterol 3 Ml Neb) 3 ml INH BID [facility] Last Admin: 01/09/23 07:27 Dose: 3 ml Amitriptyline HCl (Amitriptyline 10 Mg Tablet) 10 mg PO QPM [facility] Last Admin: 01/08/23 21:18 Dose: 10 mg Ascorbic Acid (Ascorbic Acid 500 Mg Tablet) 500 mg PO DAILY [facility] Last Admin: 01/09/23 09:06 Dose: 500 mg Atorvastatin Calcium (Atorvastatin 40 Mg Tablet) 80 mg PO QPM [facility] Last Admin: 01/08/23 21:18 Dose: 80 mg Cyclobenzaprine HCl (Cyclobenzaprine 10 Mg Tablet) 10 mg PO TID PRN PRN Reason: Spasms Ferrous Sulfate (Ferrous Sulfate 325 Mg Tablet) 325 mg PO BIDWM [facility] Last Admin: 01/09/23 09:06 Dose: 325 mg Heparin Sodium (Porcine) (Heparin 5,000 Unit/Ml Vial) 5,000 unit SUBQ BID [facility] Last Admin: 01/09/23 09:07 Dose: 5,000 unit Hydralazine HCl (Hydralazine Inj 20 Mg/Ml Vial) 10 mg IVP Q6H PRN PRN Reason: Hypertensive Emergency Last Admin: 01/09/23 00:16 Dose: 10 mg Ceftriaxone Sodium 1 gm/ (Sodium Chloride) 100 mls @ 200 mls/hr IV DAILY [facility] Stop: 01/13/23 08:59 Last Infusion: 01/09/23 09:36 Dose: Infused Insulin Human Lispro (Insulin Lispro 300 Unit/3 Ml Pen) 1 - 5 unit SUBQ 0800,1200,1700,2100 [facility]; Protocol Last Admin: 01/09/23 11:52 Dose: Not Given Lisinopril (Lisinopril 20 Mg Tablet) 20 mg PO QPM [facility] Lorazepam (Lorazepam 1 Mg Tablet) 1 mg PO Q8H PRN PRN Reason: Anxiety Metoprolol Succinate (Metoprolol Succinate 25 Mg Tablet) 50 mg PO DAILY [facility] Last Admin: 01/09/23 09:05 Dose: 50 mg Ondansetron HCl (Ondansetron Odt 4 Mg Tablet) 4 mg TL Q6H PRN PRN Reason: Nausea / Vomiting Pantoprazole Sodium (Pantoprazole 40 Mg Tablet) 40 mg PO QDAC [facility] Last Admin: 01/09/23 06:29 Dose: 40 mg Potassium Chloride (Potassium Chloride 20 Meq Tablet) 40 meq PO DAILYWM [facility] Last Admin: 01/09/23 09:06 Dose: 40 meq Multivit/Folic Acid/Iron ( Vitamin Tablet) 1 tab PO DAILY [facility] Last Admin: 01/09/23 09:06 Dose: 1 tab Saccharomyces Boulardii (Saccharomyces Boulardii 250 Mg Capsule) 250 mg PO BIDWM [facility] Last Admin: 01/08/23 16:46 Dose: 250 mg Senna (Senna 8.6 Mg Tablet) 8.6 mg PO DAILY PRN PRN Reason: Constipation Sodium Chloride (Sodium Chloride Flush 0.9% 10 Ml Syringe) 10 ml IVP PRN PRN PRN Reason: NEEDED PER PROVIDER ORDERS Sodium Chloride (Sodium Chloride Flush 0.9% 10 Ml Syringe) 10 ml IVP 0100,0900,1700 [facility] Last Admin: 01/09/23 11:53 Dose: 10 ml Solifenacin (Solifenacin Succinate 5 Mg Tablet) 10 mg PO DAILY [facility] Last Admin: 01/09/23 09:05 Dose: 10 mg Tramadol HCl (Tramadol 50 Mg Tablet) 50 mg PO Q4HR PRN PRN Reason: Moderate Pain (Level 4-6) Loratadine [Claritin] 10 mg PO DAILY 02/01/13 Albuterol Sulfate [Proair Respiclick] 1 puffs INH Q4H PRN 11/09/15 Esomeprazole Magnesium [Nexium] 20 mg PO QDAC 11/09/15 Acetaminophen [Tylenol] 500 mg PO BID 01/06/23 Amitriptyline [Elavil] 10 mg PO QPM 01/06/23 Atorvastatin Calcium [Lipitor] 80 mg PO QPM 01/06/23 Cyanocobalamin (Vitamin B-12) [Vitamin B-12] 1 cap PO DAILY 01/06/23 Cyclobenzaprine [Flexeril] 10 mg PO TID PRN 01/06/[address] [Voltaren] 75 mg PO BID PRN 01/06/23 Metoprolol Succinate [Toprol Xl] 25 mg PO DAILY 01/06/23 Multivit-Minerals/Folic Acid [Centrum Adult 50 Plus Gummy] 1 tab PO DAILY 01/06/23 Oxybutynin Chloride [Ditropan Xl] 15 mg PO DAILY 01/06/23 Pregabalin [Lyrica] 150 mg PO BID 01/06/23 lisinopriL [Lisinopril] 10 mg PO QPM 01/06/23
[2023-01-09] MEDS: INSULIN LISPRO 300 UNIT/3 ML PEN SUBQ SCH ×4 (11:52→21:14)
[2023-01-09] MEDS: SACCHAROMYCES BOULARDII 250 MG CAPSULE PO SCH ×2 (13:41→16:54)
[2023-01-09] MEDS ORDERED: lisinopriL 20 MG TABLET PO SCH (21:00)
[2023-01-09] MEDS: AMITRIPTYLINE 10 MG TABLET PO SCH (21:13)
[2023-01-09] MEDS: ATORVASTATIN 40 MG TABLET PO SCH (21:19)
[2023-01-10] MEDS: ACETAMINOPHEN 325 MG TABLET PO PRN ×2 (00:11→17:45)
[2023-01-10] MEDS ORDERED: METOPROLOL 5 MG/5 ML VIAL IVP STA (00:48)
[2023-01-10] MEDS: SODIUM CHLORIDE FLUSH 0.9% 10 ML SYRINGE IVP SCH ×3 (01:01→17:38)
[2023-01-10] MEDS: PANTOPRAZOLE 40 MG TABLET PO SCH (06:13)
[2023-01-10] MEDS: INSULIN LISPRO 300 UNIT/3 ML PEN SUBQ SCH ×4 (07:50→21:02)
[2023-01-10 08:06] LABS: BASOPHILS # (AUTO) 0.1 10^3/uL (0.0-0.1); BASOPHILS % (AUTO) 1.2 %; EOSINOPHILS # (AUTO) 0.5 10^3/uL (0.0-0.7); EOSINOPHILS % (AUTO) 6.4 %; HGB - HEMOGLOBIN 10.2 g/dL (12.0-16.0); LYMPHOCYTES # (AUTO) 2.5 10^3/uL (1.5-3.5); MEAN CORPUSCULAR HGB CONC 30.9 g/dL (32.0-36.0); MEAN PLATELET VOLUME 12.7 fL (7.9-10.8); MONOCYTES # (AUTO) 0.7 10^3/uL (0.0-1.0); NEUTROPHILS # (AUTO) 3.9 10^3/uL (1.5-6.6); NEUTROPHILS % (AUTO) 49.6 %; PLT - PLATELET COUNT 233 10^3/uL (130-450); RED BLOOD COUNT 3.93 10^6/uL (4.20-5.40); RED CELL DISTRIBUTION WIDTH 17.7 % (12.0-15.0); WHITE BLOOD COUNT 7.8 x10^3/uL (4.8-10.8)
[2023-01-10] MEDS: SOLIFENACIN SUCCINATE 5 MG TABLET PO SCH (08:18)
[2023-01-10] MEDS: PRENATAL VITAMIN TABLET PO SCH (08:18)
[2023-01-10 08:19] LABS: ALBUMIN 3.5 g/dL (3.2-5.5); ALBUMIN/GLOBULIN RATIO 1.1 (1.0-2.2); BILIRUBIN,TOTAL 0.4 mg/dL (0.2-1.0); CALCIUM 10.9 mg/dL (8.5-10.3); CREATININE 0.9 mg/dL (0.4-1.0); POTASSIUM 4.1 mmol/L (3.5-5.0); TOTAL PROTEIN 6.6 g/dL (6.7-8.2)
[2023-01-10] MEDS: FERROUS SULFATE 325 MG TABLET PO SCH ×2 (08:19→17:37)
[2023-01-10] MEDS: POTASSIUM CHLORIDE 20 MEQ TABLET PO SCH (08:19)
[2023-01-10] MEDS: METOPROLOL SUCCINATE 25 MG TABLET PO SCH (08:19)
[2023-01-10] MEDS: SACCHAROMYCES BOULARDII 250 MG CAPSULE PO SCH ×2 (08:19→17:37)
[2023-01-10] MEDS: amLODIPine 5 MG TABLET PO SCH (08:19)
[2023-01-10] MEDS: ASCORBIC ACID 500 MG TABLET PO SCH (08:19)
[2023-01-10] MEDS: cefTRIAXone 1 GM in SODIUM CHLORIDE 0.9% MINIBAG 100 ML IV SCH (08:20)
[2023-01-10] MEDS: HEPARIN 5,000 UNIT/ML VIAL SUBQ SCH ×2 (08:20→21:59)
[2023-01-10] MEDS: lisinopriL 20 MG TABLET PO SCH (10:23)
--- NOTE | 2023-01-10 12:01 | PROVIDER PROGRESS NOTE ---
Assessment/Plan - Problem List (1) Rhabdomyolysis Assessment/Plan: resolved. CK is trending town, and creatinine 1.0 Consult with physical therapist and occupational therapist, and prevention of her falls 2. Toxic metabolic encephalopathy due to sepsis. resolved. 3 uncontrolled HTN Patient presents with uncontrolled blood pressure. We will move her lisinopril to the daytime and increase this dosage, add amlodipine, increase the metoprolol dosage as well, and overnight monitor pt. 4. Sepsis with shock. resolved. WBC became normal. Lactic acid was never elevated. Tachycardia has resolved. As such, sepsis criteria have resolved, and shock has resolved. 5. E. coli UTI. Patient is on empiric ceftriaxone therapy. UA culture show E.coli with panosensitive to antibiotics. CT of the abdomen was already done to make sure she did not have obstruction. She does have a single left kidney cyst that is nonobstructing. 6. Acute on chronic kidney injury. resolved, creatinine became 1.0 on today. 7. Transaminitis due to shock liver. improved, close to normal arrange. pt denies drinking of alcohol. 8. pre-diabetes mellitus. A1c is 6.3%. She does not require sliding scale insulin. We will monitor this and start insulin if glucose goes above 180. 9. Anemia. Iron was low at 20, TIBC 472, percent saturation 4, transferrin 37. TSH is 1.05. She is fecal occult blood negative. She was already started on oral iron last night. She will need follow-up with her primary care provider to complete the work-up. 10. History of falls at home. PT and OT will work with pt and recommend to SNF, consult with social services technician for d/c planning 11. Movement disorder. She is not on medication such as Reglan, and son feels that this is baseline status for mom. He does not remember if she is ever taken antipsychotics. 12 wound at left arm. wound is improved. drainage is reduce. The wound edge is clear without erythema or swelling. wound culture show rare gram positive cocci, and 2+ normal skin hai continue antibiotics nurse continue daily dressing change for pt 13, anxiety pt present anxiety, we will add ativan PRN. pt denies alcohol drink at home At this point, pt is pending social services technician for SNF replacement. - Current Meds Current Meds: Current Medications Generic Name Dose Route Start Last Admin Trade Name Freq PRN Reason Stop Dose Admin Acetaminophen 650 mg 01/07/23 08:31 01/10/23 00:11 Acetaminophen 325 Mg Tablet PO 650 mg Q4HR PRN Administration Pain 1-4 or Fever > 38C Albuterol 2.5 mg 01/07/23 12:03 01/08/23 12:43 Albuterol Neb 2.5 Mg/3 Ml INH 2.5 mg RTQ4H PRN Administration Shortness of Air/Wheezing Amitriptyline HCl 10 mg 01/08/23 21:00 01/09/23 21:13 Amitriptyline 10 Mg Tablet PO 10 mg QPM LESLEE Administration Amlodipine Besylate 10 mg 01/10/23 09:00 01/10/23 08:19 Amlodipine 5 Mg Tablet PO 10 mg DAILY LESLEE Administration Ascorbic Acid 500 mg 01/06/23 09:00 01/10/23 08:19 Ascorbic Acid 500 Mg Tablet PO 500 mg DAILY LESLEE Administration Atorvastatin Calcium 80 mg 01/08/23 21:00 01/09/23 21:19 Atorvastatin 40 Mg Tablet PO 80 mg QPM LESLEE Administration Ferrous Sulfate 325 mg 01/06/23 08:00 01/10/23 08:19 Ferrous Sulfate 325 Mg Tablet PO 325 mg BIDWM LESLEE Administration Heparin Sodium (Porcine) 5,000 unit 01/05/23 21:00 01/10/23 08:20 Heparin 5,000 Unit/Ml Vial SUBQ 5,000 unit BID LESLEE Administration Hydralazine HCl 10 mg 01/08/23 08:24 01/09/23 00:16 Hydralazine Inj 20 Mg/Ml Vial IVP 10 mg Q6H PRN Administration Hypertensive Emergency Ceftriaxone Sodium 1 gm/ 100 mls @ 200 mls/hr 01/06/23 09:00 01/10/23 10:24 Sodium Chloride IV 01/13/23 08:59 Infused DAILY PENDING SALE TO [facility] Infusion Insulin Human Lispro 1 - 5 unit 01/05/23 21:00 01/10/23 07:50 Insulin Lispro 300 Unit/3 Ml Pen SUBQ Not Given 0800,1200,1700,2100 PENDING SALE TO [facility] Protocol Lisinopril 30 mg 01/10/23 10:00 01/10/23 10:23 Lisinopril 20 Mg Tablet PO 30 mg 0900 LESLEE Administration Metoprolol Succinate 50 mg 01/09/23 09:00 01/10/23 08:19 Metoprolol Succinate 25 Mg Tablet PO 50 mg DAILY LESLEE Administration Pantoprazole Sodium 40 mg 01/06/23 07:00 01/10/23 06:13 Pantoprazole 40 Mg Tablet PO 40 mg QDAC LESLEE Administration Potassium Chloride 40 meq 01/06/23 10:00 01/10/23 08:19 Potassium Chloride 20 Meq Tablet PO 40 meq DAILYWM LESLEE Administration Multivit/Folic Acid/Iron 1 tab 01/07/23 09:00 01/10/23 08:18 Vitamin Tablet PO 1 tab DAILY LESLEE Administration Saccharomyces Boulardii 250 mg 01/06/23 08:00 01/10/23 08:19 Saccharomyces Boulardii 250 Mg Capsule PO 250 mg BIDWM LESLEE Administration Sodium Chloride 10 ml 01/06/23 01:00 01/10/23 08:20 Sodium Chloride Flush 0.9% 10 Ml Syringe IVP 10 ml 0100,0900,1700 LESLEE Administration Solifenacin 10 mg 01/06/23 09:00 01/10/23 08:18 Solifenacin Succinate 5 Mg Tablet PO 10 mg DAILY LESLEE Administration - Lab Result Fish Bone Diagrams: 01/10/23 08:00 01/10/23 08:00 - Additional Planning My Orders: My Active Orders 01/10/23 CK- CREATINE KINASE [CHEM] Urgent 01/10/23 09:00 amLODIPine [Norvasc] 10 mg PO DAILY 01/10/23 10:00 lisinopriL [Zestril] 30 mg PO 0900 01/11/23 05:00 CBC - COMP BLD CT W/AUTO DIFF [HEME] DAILYLAB CMP [COMPREHENSIVE METABOLIC PANEL] [CHEM] DAILYLAB 01/12/23 05:00 CBC - COMP BLD CT W/AUTO DIFF [HEME] DAILYLAB CMP [COMPREHENSIVE METABOLIC PANEL] [CHEM] DAILYLAB 01/13/23 05:00 CBC - COMP BLD CT W/AUTO DIFF [HEME] DAILYLAB CMP [COMPREHENSIVE METABOLIC PANEL] [CHEM] DAILYLAB 01/14/23 05:00 CBC - COMP BLD CT W/AUTO DIFF [HEME] DAILYLAB CMP [COMPREHENSIVE METABOLIC PANEL] [CHEM] DAILYLAB Subjective - Subjective Patient Reports: Feeling Better Objective Vital Signs: Vital Signs - 24 hr 01/09/23 01/09/23 01/10/23 14: 16:00 00:13 Temperature 36.9 C 37.1 C Heart Rate [ 85 85 93 Brachial] Respiratory 16 20 Rate Blood Pressure Blood Pressure 153/65 H 173/68 H 198/72 H [Right Brachial artery] O2 Saturation 95 95 01/10/23 01/10/23 01/10/23 00:58 01:06 01:11 Temperature Heart Rate [ 77 76 Brachial] Respiratory Rate Blood Pressure 182/59 H Blood Pressure 176/60 H 171/60 H [Right Brachial artery] O2 Saturation 01/10/23 01/10/23 01/10/23 01:16 01:31 01:46 Temperature Heart Rate [ 77 78 76 Brachial] Respiratory Rate Blood Pressure Blood Pressure 155/62 H 165/63 H 173/70 H [Right Brachial artery] O2 Saturation 01/10/23 01/10/23 01/10/23 02:01 08:00 10:12 Temperature 36.9 C Heart Rate [ 83 89 87 Brachial] Respiratory 18 Rate Blood Pressure Blood Pressure 160/71 H 191/68 H 153/62 H [Right Brachial artery] O2 Saturation 94 01/10/23 11:32 Temperature Heart Rate [ 95 Brachial] Respiratory Rate Blood Pressure Blood Pressure 122/72 [Right Brachial artery] O2 Saturation Oxygen O2 Source Room air I&O (Last 24 Hrs): Intake and Output Totals x24h 01/08/23 01/09/23 01/10/23 23:59 23:59 23:59 Intake Total 3410 1410 240 Output Total 1950 1900 300 Balance 1460 -490 -60 General: Alert, No acute distress HEENT: Atraumatic Neck: Supple Neuro: Alert, Non Focal, Oriented Times 3 Cardiovascular: Regular rate, Normal S1, Normal S2 Respiratory: Chest non-tender, No respiratory distress Abdomen: Normal bowel sounds, Soft Comments/Notes: partial skin at lateral left upper arm and left low extremity was broken with mild drainage, the skin edge without erythema or swelling - Results Results: Laboratory Results WBC 7.8 x10^3/uL (4.8-10.8) 01/10/23 08:00 RBC 3.93 10^6/uL (4.20-5.40) L 01/10/23 08:00 Hgb 10.2 g/dL (12.0-16.0) L 01/10/23 08:00 Hct 33.0 % (37.0-47.0) L 01/10/23 08:00 MCV 84.0 fL (81.0-99.0) 01/10/23 08:00 MCH 26.0 pg (27.0-31.0) L 01/10/23 08:00 MCHC 30.9 g/dL (32.0-36.0) L 01/10/23 08:00 RDW 17.7 % (12.0-15.0) H 01/10/23 08:00 Plt Count 233 10^3/uL (130-450) 01/10/23 08:00 MPV 12.7 fL (7.9-10.8) H 01/10/23 08:00 Neut # (Auto) 3.9 10^3/uL (1.5-6.6) 01/10/23 08:00 Lymph # (Auto) 2.5 10^3/uL (1.5-3.5) 01/10/23 08:00 [place] # (Auto) 0.7 10^3/uL (0.0-1.0) 01/10/23 08:00 Eos # (Auto) 0.5 10^3/uL (0.0-0.7) 01/10/23 08:00 Baso # (Auto) 0.1 10^3/uL (0.0-0.1) 01/10/23 08:00 Absolute Nucleated RBC 0.00 x10^3/uL 01/10/23 08:00 Total Counted 100 01/05/23 16:13 Band Neuts % (Manual) 3 % (0-10) 01/05/23 16:13 Abnorm Lymph % (Manual) 0 % 01/05/23 16:13 Nucleated RBC % 0.0 /100WBC 01/10/23 08:00 Neutrophils # (Manual) 19.2 10^3/uL (1.5-6.6) H 01/05/23 16:13 Lymphocytes # (Manual) 1.6 10^3/uL (1.5-3.5) 01/05/23 16:13 Monocytes # (Manual) 1.3 10^3/uL (0.0-1.0) H 01/05/23 16:13 Eosinophils # (Manual) 0.2 10^3/uL (0-0.7) 01/05/23 16:13 Basophils # (Manual) 0.0 10^3/uL (0-0.1) 01/05/23 16:13 Differential Comment MANUAL DIFFERENTIAL 01/05/23 16:13 Platelet Estimate NORMAL (130-450,000) (NORMAL) 01/05/23 16:13 Platelet Morphology NORMAL APPEARANCE (NORMAL) 01/05/23 16:13 RBC Morph Micro Appear NORMAL APPEARANCE (NORMAL) 01/05/23 16:13 Sodium 140 mmol/L (135-145) 01/10/23 08:00 Potassium 4.1 mmol/L (3.5-5.0) 01/10/23 08:00 Chloride 106 mmol/L (101-111) 01/10/23 08:00 Carbon Dioxide 27 mmol/L (21-32) 01/10/23 08:00 Anion Gap 7.0 (6-13) 01/10/23 08:00 BUN 14 mg/dL (6-20) 01/10/23 08:00 Creatinine 0.9 mg/dL (0.4-1.0) 01/10/23 08:00 Estimated GFR (MDRD) 63 (>89) L 01/10/23 08:00 Glucose 121 mg/dL (70-100) H 01/10/23 08:00 POC Whole Bld Glucose 117 mg/dL (70 - 100) H 01/10/23 07:24 Estimat Average Glucose 134 mg/dL (70-100) H 01/05/23 16:13 Hemoglobin A1c % 6.3 % (4.27-6.07) H 01/05/23 16:13 Lactic Acid 1.1 mmol/L (0.5-2.2) 01/05/23 22:56 Calcium 10.9 mg/dL (8.5-10.3) H 01/10/23 08:00 Phosphorus 2.7 mg/dL (2.5-4.6) 01/06/23 05:39 Magnesium 1.7 mg/dL (1.7-2.8) 01/07/23 11:05 Iron 20 ug/dL (28-170) L 01/05/23 16:13 TIBC 472 ug/dL (250-450) H 01/05/23 16:13 % Saturation 4 % (20-50) L 01/05/23 16:13 Transferrin 337 mg/dL (192-382) 01/05/23 16:13 Total Bilirubin 0.4 mg/dL (0.2-1.0) 01/10/23 08:00 AST 54 IU/L (10-42) H 01/10/23 08:00 ALT 74 IU/L (10-60) H 01/10/23 08:00 Alkaline Phosphatase 55 IU/L (42-121) 01/10/23 08:00 Ammonia < 10.0 umol/L (7-35) 01/05/23 22:56 Total Creatine Kinase 439 IU/L (22-269) H 01/09/23 04:31 B-Natriuretic Peptide 34 pg/mL (5-100) 01/05/23 16:13 Total Protein 6.6 g/dL (6.7-8.2) L 01/10/23 08:00 Albumin 3.5 g/dL (3.2-5.5) 01/10/23 08:00 Globulin 3.1 g/dL (2.1-4.2) 01/10/23 08:00 Albumin/Globulin Ratio 1.1 (1.0-2.2) 01/10/23 08:00 Triglycerides 272 mg/dL (-149) H 01/05/23 16:13 Cholesterol 112 mg/dL (-199) 01/05/23 16:13 LDL Cholesterol, Calc 34 mg/dL (-129) 01/05/23 16:13 VLDL Cholesterol 54 mg/dL 01/05/23 16:13 HDL Cholesterol 24 mg/dL (60-) L 01/05/23 16:13 LDL/HDL Ratio 1.4 (<4.4) 01/05/23 16:13 Cholesterol/HDL Ratio 4.7 (<4.4) 01/05/23 16:13 Lipase 20 U/L (22-51) L 01/05/23 16:13 TSH 1.05 uIU/mL (0.34-5.60) 01/05/23 16:13 Urine Color YELLOW 01/05/23 16:43 Urine Clarity CLOUDY (CLEAR) 01/05/23 16:43 Urine pH 5.0 PH (5.0-7.5) 01/05/23 16:43 Ur Specific [place] >=1.030 (1.002-1.030) H 01/05/23 16:43 Urine Protein 100 mg/dL (NEGATIVE) H 01/05/23 16:43 Urine Glucose (UA) NEGATIVE mg/dL (NEGATIVE) 01/05/23 16:43 Urine Ketones 15 mg/dL (NEGATIVE) H 01/05/23 16:43 Urine Occult Blood LARGE (NEGATIVE) H 01/05/23 16:43 Urine Nitrite POSITIVE (NEGATIVE) H 01/05/23 16:43 Urine Bilirubin NEGATIVE (NEGATIVE) 01/05/23 16:43 Urine Urobilinogen 0.2 (NORMAL) E.U./dL (NORMAL) 01/05/23 16:43 Ur Leukocyte Esterase NEGATIVE (NEGATIVE) 01/05/23 16:43 Urine RBC 6-10 /HPF (0-5) H 01/05/23 16:43 Urine WBC 6-10 /HPF (0-5) H 01/05/23 16:43 Ur Squamous Epith Cells FEW Squamous (<= Few) 01/05/23 16:43 Amorphous Sediment Few /LPF 01/05/23 16:43 Urine Bacteria Many /HPF (None Seen) H 01/05/23 16:43 Urine Casts 6-10 Fine Granular /LPF 01/05/23 16:43 Ur Microscopic Review INDICATED 01/05/23 16:43 Urine Culture Comments INDICATED 01/05/23 16:43 Stl C. diff Tox B Gene NEGATIVE (NEGATIVE) 01/05/23 16:38 - Procedures Procedures: Procedures EXCISION OF CECUM, ENDO (11/09/15) RESECTION OF GALLBLADDER, PERCUTANEOUS ENDOSCOPIC APPROACH (10/21/17) Sepsis Event Note (H) - Evaluation Possible source of Sepsis: positive: Genitourinary ABX Reporting Has patient been on IV antibiotics over the past 48 hours?: Yes Current Medications - Current Medications Current Medications: Active Medications Acetaminophen (Acetaminophen 325 Mg Tablet) 650 mg PO Q4HR PRN PRN Reason: Pain 1-4 or Fever > 38C Last Admin: 01/10/23 00:11 Dose: 650 mg Albuterol (Albuterol Neb 2.5 Mg/3 Ml) 2.5 mg INH RTQ4H PRN PRN Reason: Shortness of Air/Wheezing Last Admin: 01/08/23 12:43 Dose: 2.5 mg Amitriptyline HCl (Amitriptyline 10 Mg Tablet) 10 mg PO QPM PENDING SALE TO [facility] Last Admin: 01/09/23 21:13 Dose: 10 mg Amlodipine Besylate (Amlodipine 5 Mg Tablet) 10 mg PO DAILY PENDING SALE TO [facility] Last Admin: 01/10/23 08:19 Dose: 10 mg Ascorbic Acid (Ascorbic Acid 500 Mg Tablet) 500 mg PO DAILY PENDING SALE TO [facility] Last Admin: 01/10/23 08:19 Dose: 500 mg Atorvastatin Calcium (Atorvastatin 40 Mg Tablet) 80 mg PO QPM PENDING SALE TO [facility] Last Admin: 01/09/23 21:19 Dose: 80 mg Cyclobenzaprine HCl (Cyclobenzaprine 10 Mg Tablet) 10 mg PO TID PRN PRN Reason: Spasms Ferrous Sulfate (Ferrous Sulfate 325 Mg Tablet) 325 mg PO BIDWM PENDING SALE TO [facility] Last Admin: 01/10/23 08:19 Dose: 325 mg Heparin Sodium (Porcine) (Heparin 5,000 Unit/Ml Vial) 5,000 unit SUBQ BID PENDING SALE TO [facility] Last Admin: 01/10/23 08:20 Dose: 5,000 unit Hydralazine HCl (Hydralazine Inj 20 Mg/Ml Vial) 10 mg IVP Q6H PRN PRN Reason: Hypertensive Emergency Last Admin: 01/09/23 00:16 Dose: 10 mg Ceftriaxone Sodium 1 gm/ (Sodium Chloride) 100 mls @ 200 mls/hr IV DAILY PENDING SALE TO [facility] Stop: 01/13/23 08:59 Last Infusion: 01/10/23 10:24 Dose: Infused Insulin Human Lispro (Insulin Lispro 300 Unit/3 Ml Pen) 1 - 5 unit SUBQ 0800,1200,1700,2100 PENDING SALE TO [facility]; Protocol Last Admin: 01/10/23 07:50 Dose: Not Given Lisinopril (Lisinopril 20 Mg Tablet) 30 mg PO 0900 PENDING SALE TO [facility] Last Admin: 01/10/23 10:23 Dose: 30 mg Lorazepam (Lorazepam 1 Mg Tablet) 1 mg PO Q8H PRN PRN Reason: Anxiety Metoprolol Succinate (Metoprolol Succinate 25 Mg Tablet) 50 mg PO DAILY PENDING SALE TO [facility] Last Admin: 01/10/23 08:19 Dose: 50 mg Ondansetron HCl (Ondansetron Odt 4 Mg Tablet) 4 mg TL Q6H PRN PRN Reason: Nausea / Vomiting Pantoprazole Sodium (Pantoprazole 40 Mg Tablet) 40 mg PO QDAC PENDING SALE TO [facility] Last Admin: 01/10/23 06:13 Dose: 40 mg Potassium Chloride (Potassium Chloride 20 Meq Tablet) 40 meq PO DAILYWM PENDING SALE TO [facility] Last Admin: 01/10/23 08:19 Dose: 40 meq Multivit/Folic Acid/Iron ( Vitamin Tablet) 1 tab PO DAILY PENDING SALE TO [facility] Last Admin: 01/10/23 08:18 Dose: 1 tab Saccharomyces Boulardii (Saccharomyces Boulardii 250 Mg Capsule) 250 mg PO BIDWM PENDING SALE TO [facility] Last Admin: 01/10/23 08:19 Dose: 250 mg Senna (Senna 8.6 Mg Tablet) 8.6 mg PO DAILY PRN PRN Reason: Constipation Sodium Chloride (Sodium Chloride Flush 0.9% 10 Ml Syringe) 10 ml IVP PRN PRN PRN Reason: NEEDED PER PROVIDER ORDERS Sodium Chloride (Sodium Chloride Flush 0.9% 10 Ml Syringe) 10 ml IVP 0100,0900,1700 PENDING SALE TO [facility] Last Admin: 01/10/23 08:20 Dose: 10 ml Solifenacin (Solifenacin Succinate 5 Mg Tablet) 10 mg PO DAILY PENDING SALE TO [facility] Last Admin: 01/10/23 08:18 Dose: 10 mg Tramadol HCl (Tramadol 50 Mg Tablet) 50 mg PO Q4HR PRN PRN Reason: Moderate Pain (Level 4-6) Loratadine [Claritin] 10 mg PO DAILY 02/01/13 Albuterol Sulfate [Proair Respiclick] 1 puffs INH Q4H PRN 11/09/15 Esomeprazole Magnesium [Nexium] 20 mg PO QDAC 11/09/15 Acetaminophen [Tylenol] 500 mg PO BID 01/06/23 Amitriptyline [Elavil] 10 mg PO QPM 01/06/23 Atorvastatin Calcium [Lipitor] 80 mg PO QPM 01/06/23 Cyanocobalamin (Vitamin B-12) [Vitamin B-12] 1 cap PO DAILY 01/06/23 Cyclobenzaprine [Flexeril] 10 mg PO TID PRN 01/06/[address] [Voltaren] 75 mg PO BID PRN 01/06/23 Metoprolol Succinate [Toprol Xl] 25 mg PO DAILY 01/06/23 Multivit-Minerals/Folic Acid [Centrum Adult 50 Plus Gummy] 1 tab PO DAILY 01/06/23 Oxybutynin Chloride [Ditropan Xl] 15 mg PO DAILY 01/06/23 Pregabalin [Lyrica] 150 mg PO BID 01/06/23 lisinopriL [Lisinopril] 10 mg PO QPM 01/06/23
[2023-01-10] MEDS: ATORVASTATIN 40 MG TABLET PO SCH (21:02)
[2023-01-10] MEDS: AMITRIPTYLINE 10 MG TABLET PO SCH (21:02)
[2023-01-11] MEDS: SODIUM CHLORIDE FLUSH 0.9% 10 ML SYRINGE IVP SCH ×2 (00:53→08:47)
[2023-01-11] MEDS: PANTOPRAZOLE 40 MG TABLET PO SCH (05:19)
[2023-01-11 05:50] LABS: BASOPHILS # (AUTO) 0.1 10^3/uL (0.0-0.1); BASOPHILS % (AUTO) 1.1 %; EOSINOPHILS # (AUTO) 0.7 10^3/uL (0.0-0.7); EOSINOPHILS % (AUTO) 5.8 %; HGB - HEMOGLOBIN 11.2 g/dL (12.0-16.0); LYMPHOCYTES # (AUTO) 3.9 10^3/uL (1.5-3.5); LYMPHOCYTES % (AUTO) 34.3 %; MEAN CORPUSCULAR HEMOGLOBIN 25.4 pg (27.0-31.0); MEAN CORPUSCULAR HGB CONC 30.3 g/dL (32.0-36.0); MEAN CORPUSCULAR VOLUME 83.9 fL (81.0-99.0); MEAN PLATELET VOLUME 12.9 fL (7.9-10.8); MONOCYTES % (AUTO) 8.7 %; NEUTROPHILS # (AUTO) 5.4 10^3/uL (1.5-6.6); NEUTROPHILS % (AUTO) 47.5 %; PLT - PLATELET COUNT 295 10^3/uL (130-450); RED BLOOD COUNT 4.41 10^6/uL (4.20-5.40); RED CELL DISTRIBUTION WIDTH 18.5 % (12.0-15.0); WHITE BLOOD COUNT 11.4 x10^3/uL (4.8-10.8)
[2023-01-11 06:00] LABS: ALBUMIN/GLOBULIN RATIO 1.3 (1.0-2.2); BILIRUBIN,TOTAL 0.5 mg/dL (0.2-1.0); CALCIUM 11.9 mg/dL (8.5-10.3); CREATININE 1.1 mg/dL (0.4-1.0); POTASSIUM 4.5 mmol/L (3.5-5.0); TOTAL PROTEIN 7.2 g/dL (6.7-8.2)
[2023-01-11] MEDS: METOPROLOL SUCCINATE 25 MG TABLET PO SCH (08:45)
[2023-01-11] MEDS: cefTRIAXone 1 GM in SODIUM CHLORIDE 0.9% MINIBAG 100 ML IV SCH (08:45)
[2023-01-11] MEDS: lisinopriL 20 MG TABLET PO SCH (08:45)
[2023-01-11] MEDS: FERROUS SULFATE 325 MG TABLET PO SCH ×2 (08:45→17:50)
[2023-01-11] MEDS: SOLIFENACIN SUCCINATE 5 MG TABLET PO SCH (08:45)
[2023-01-11] MEDS: amLODIPine 5 MG TABLET PO SCH (08:46)
[2023-01-11] MEDS: SACCHAROMYCES BOULARDII 250 MG CAPSULE PO SCH ×2 (08:46→16:23)
[2023-01-11] MEDS: PRENATAL VITAMIN TABLET PO SCH (08:46)
[2023-01-11] MEDS: ASCORBIC ACID 500 MG TABLET PO SCH (08:47)
[2023-01-11] MEDS: INSULIN LISPRO 300 UNIT/3 ML PEN SUBQ SCH ×4 (08:47→20:09)
[2023-01-11] MEDS: HEPARIN 5,000 UNIT/ML VIAL SUBQ SCH ×2 (08:48→22:04)
[2023-01-11] MEDS: POTASSIUM CHLORIDE 20 MEQ TABLET PO SCH (09:03)
[2023-01-11] MEDS ORDERED: LORazepam 1 MG TABLET PO PRN (10:23)
[2023-01-11] MEDS: ACETAMINOPHEN 325 MG TABLET PO PRN (12:30)
[2023-01-11] MEDS: CYCLOBENZAPRINE 10 MG TABLET PO PRN (12:30)
[2023-01-11] MEDS: traMADol 50 MG TABLET PO PRN (13:57)
--- NOTE | 2023-01-11 17:22 | PROVIDER PROGRESS NOTE ---
Assessment/Plan - Problem List (1) Wound of left upper extremity Assessment/Plan: L arm wound has improved. drainage has reduce. The wound edge is clear without erythema or swelling. wound culture show rare gram positive cocci, and 2+ normal skin hai continue antibiotics nurse continue daily dressing changes on pt 2. Uncontrolled HTN Patient presented with uncontrolled blood pressure, as high as 200 systolic We have moved her lisinopril to the daytime and increased this dosage, added new amlodipine, and increased the metoprolol dosage as well, BP has improved. VS were reviewed 3. E. coli UTI. Patient is on empiric ceftriaxone therapy. UA culture show E.coli with panosensitive to antibiotics. CT of the abdomen was already done to make sure she did not have obstruction. She does have a left kidney cyst that is nonobstructing. Finishing antibx. 4. Acute on chronic kidney injury. All labs were reviwed, BREANNA has resolved, creatinine down to 1.0 5. Transaminitis due to shock liver. pt denies drinking alcohol. improved, close to normal arrange. 6. New onset diabetes mellitus. A1c is 6.3%. She is actually a Borderline Diabetic w=ith this A1c. She does not require sliding scale insulin. We will monitor her fingerstick glu and start insulin if glucose goes above 180. 7. Anemia. Iron was low at 20, TIBC 472, percent saturation 4, transferrin 37. TSH is 1.05. She is fecal occult blood negative. She was already started on oral iron last night. She will need follow-up with her primary care provider to complete the work-up. 8. History of freq falls at home. PT and OT will work with pt and have recommended she go to SNF, consult with social contact worker for d/c planning, arranging a SNF 9. Movement disorder. She is not on specific medications for this, and son feels that this is baseline status for mom. He does not remember if she is ever taken antipsychotics. 10. Toxic metabolic encephalopathy due to sepsis. resolved. 11. Sepsis WBC became normal. Lactic acid was never elevated. Tachycardia has resolved. As such, sepsis criteria have resolved, and shock has resolved. resolved. 12. Rhabdomyolysis resolved. [place] is trending town, and creatinine 1.0 Consult with physical therapist and occupational therapist, and prevention of her falls, she is at risk and more rehab advised. awaiting a SNF placement. - Current Meds Current Meds: Current Medications Generic Name Dose Route Start Last Admin Trade Name Freq PRN Reason Stop Dose Admin Acetaminophen 650 mg 01/07/23 08:31 01/11/23 12:30 Acetaminophen 325 Mg Tablet PO 650 mg Q4HR PRN Administration Pain 1-4 or Fever > 38C Albuterol 2.5 mg 01/07/23 12:03 01/08/23 12:43 Albuterol Neb 2.5 Mg/3 Ml INH 2.5 mg RTQ4H PRN Administration Shortness of Air/Wheezing Amitriptyline HCl 10 mg 01/08/23 21:00 01/10/23 21:02 Amitriptyline 10 Mg Tablet PO 10 mg QPM LESLEE Administration Amlodipine Besylate 10 mg 01/10/23 09:00 01/11/23 08:46 Amlodipine 5 Mg Tablet PO 10 mg DAILY LESLEE Administration Ascorbic Acid 500 mg 01/06/23 09:00 01/11/23 08:47 Ascorbic Acid 500 Mg Tablet PO 500 mg DAILY LESLEE Administration Atorvastatin Calcium 80 mg 01/08/23 21:00 01/10/23 21:02 Atorvastatin 40 Mg Tablet PO 80 mg QPM LSELEE Administration Cyclobenzaprine HCl 10 mg 01/08/23 17:00 01/11/23 12:30 Cyclobenzaprine 10 Mg Tablet PO 10 mg TID PRN Administration Spasms Ferrous Sulfate 325 mg 01/06/23 08:00 01/11/23 08:45 Ferrous Sulfate 325 Mg Tablet PO 325 mg BIDWM LESLEE Administration Heparin Sodium (Porcine) 5,000 unit 01/05/23 21:00 01/11/23 08:48 Heparin 5,000 Unit/Ml Vial SUBQ 5,000 unit BID LESLEE Administration Insulin Human Lispro 1 - 5 unit 01/05/23 21:00 01/11/23 12:53 Insulin Lispro 300 Unit/3 Ml Pen SUBQ Not Given 0800,1200,1700,2100 [facility] Protocol Lisinopril 30 mg 01/10/23 10:00 01/11/23 08:45 Lisinopril 20 Mg Tablet PO 30 mg 0900 LESLEE Administration Metoprolol Succinate 50 mg 01/09/23 09:00 01/11/23 08:45 Metoprolol Succinate 25 Mg Tablet PO 50 mg DAILY LESLEE Administration Pantoprazole Sodium 40 mg 01/06/23 07:00 01/11/23 05:19 Pantoprazole 40 Mg Tablet PO 40 mg QDAC LESLEE Administration Potassium Chloride 40 meq 01/06/23 10:00 01/11/23 09:03 Potassium Chloride 20 Meq Tablet PO 40 meq DAILYWM LESLEE Administration Multivit/Folic Acid/Iron 1 tab 01/07/23 09:00 01/11/23 08:46 Vitamin Tablet PO 1 tab DAILY LESLEE Administration Saccharomyces Boulardii 250 mg 01/06/23 08:00 01/11/23 16:23 Saccharomyces Boulardii 250 Mg Capsule PO 250 mg BIDWM LESLEE Administration Senna 8.6 mg 01/05/23 19:27 01/11/23 08:47 Senna 8.6 Mg Tablet PO 8.6 mg DAILY PRN Administration Constipation Solifenacin 10 mg 01/06/23 09:00 01/11/23 08:45 Solifenacin Succinate 5 Mg Tablet PO 10 mg DAILY LESLEE Administration Tramadol HCl 50 mg 01/07/23 09:13 01/11/23 13:57 Tramadol 50 Mg Tablet PO 50 mg Q4HR PRN Administration Moderate Pain (Level 4-6) - Lab Result Fish Bone Diagrams: 01/14/23 05:57 01/12/23 05:18 - Additional Planning My Orders: My Active Orders 01/11/23 10:21 IV Discontinuation [RC] .ONCE 01/11/23 10:23 LORazepam [Ativan] 1 mg PO DAILY PRN 01/12/23 05:00 BMP - BASIC METABOLIC PANEL [CHEM] DAILYLAB 01/12/23 09:00 levoFLOXacin [Levaquin] 500 mg PO DAILY Subjective - Subjective Patient Reports: Feeling Better, No Complaints Objective Vital Signs: Vital Signs - 24 hr 01/10/23 01/10/23 01/11/23 20:56 23:21 08:12 Temperature 36.4 C L 36.7 C 36.7 C Heart Rate 92 Heart Rate [ 91 92 Brachial] Respiratory 18 18 20 Rate Blood Pressure 151/76 H 150/63 H [Right Brachial artery] O2 Saturation 96 93 93 01/11/23 16:23 Temperature 36.7 C Heart Rate Heart Rate [ 86 Brachial] Respiratory 16 Rate Blood Pressure 116/95 H [Right Brachial artery] O2 Saturation 98 Oxygen O2 Source Room air I&O (Last 24 Hrs): Intake and Output Totals x24h 01/09/23 01/10/23 01/11/23 23:59 23:59 23:59 Intake Total 3594 145 1987 Output Total 1900 300 650 Balance -490 540 360 General: Alert, Oriented x3 HEENT: Mucous membr. moist/pink, Other (Obese) Neck: Supple, No JVD Neuro: Alert, Non Focal Cardiovascular: Regular rate, No murmurs Respiratory: No respiratory distress, Breath sounds nml Abdomen: Normal bowel sounds, Soft, Other (Obese) Extremities: No clubbing, Other (L mid arm bandgaed) - Results Results: Laboratory Results WBC 11.4 x10^3/uL (4.8-10.8) H 01/11/23 05:34 RBC 4.41 10^6/uL (4.20-5.40) 01/11/23 05:34 Hgb 11.2 g/dL (12.0-16.0) L 01/11/23 05:34 Hct 37.0 % (37.0-47.0) 01/11/23 05:34 MCV 83.9 fL (81.0-99.0) 01/11/23 05:34 MCH 25.4 pg (27.0-31.0) L 01/11/23 05:34 MCHC 30.3 g/dL (32.0-36.0) L 01/11/23 05:34 RDW 18.5 % (12.0-15.0) H 01/11/23 05:34 Plt Count 295 10^3/uL (130-450) 01/11/23 05:34 MPV 12.9 fL (7.9-10.8) H 01/11/23 05:34 Neut # (Auto) 5.4 10^3/uL (1.5-6.6) 01/11/23 05:34 Lymph # (Auto) 3.9 10^3/uL (1.5-3.5) H 01/11/23 05:34 [place] # (Auto) 1.0 10^3/uL (0.0-1.0) 01/11/23 05:34 Eos # (Auto) 0.7 10^3/uL (0.0-0.7) 01/11/23 05:34 Baso # (Auto) 0.1 10^3/uL (0.0-0.1) 01/11/23 05:34 Absolute Nucleated RBC 0.00 x10^3/uL 01/11/23 05:34 Total Counted 100 01/05/23 16:13 Band Neuts % (Manual) 3 % (0-10) 01/05/23 16:13 Abnorm Lymph % (Manual) 0 % 01/05/23 16:13 Nucleated RBC % 0.0 /100WBC 01/11/23 05:34 Neutrophils # (Manual) 19.2 10^3/uL (1.5-6.6) H 01/05/23 16:13 Lymphocytes # (Manual) 1.6 10^3/uL (1.5-3.5) 01/05/23 16:13 Monocytes # (Manual) 1.3 10^3/uL (0.0-1.0) H 01/05/23 16:13 Eosinophils # (Manual) 0.2 10^3/uL (0-0.7) 01/05/23 16:13 Basophils # (Manual) 0.0 10^3/uL (0-0.1) 01/05/23 16:13 Differential Comment MANUAL DIFFERENTIAL 01/05/23 16:13 Platelet Estimate NORMAL (130-450,000) (NORMAL) 01/05/23 16:13 Platelet Morphology NORMAL APPEARANCE (NORMAL) 01/05/23 16:13 RBC Morph Micro Appear NORMAL APPEARANCE (NORMAL) 01/05/23 16:13 Sodium 140 mmol/L (135-145) 01/11/23 05:34 Potassium 4.5 mmol/L (3.5-5.0) 01/11/23 05:34 Chloride 106 mmol/L (101-111) 01/11/23 05:34 Carbon Dioxide 26 mmol/L (21-32) 01/11/23 05:34 Anion Gap 8.0 (6-13) 01/11/23 05:34 BUN 20 mg/dL (6-20) 01/11/23 05:34 Creatinine 1.1 mg/dL (0.4-1.0) H 01/11/23 05:34 Estimated GFR (MDRD) 50 (>89) L 01/11/23 05:34 Glucose 129 mg/dL (70-100) H 01/11/23 05:34 POC Whole Bld Glucose 117 mg/dL (70 - 100) H 01/11/23 16:40 Estimat Average Glucose 134 mg/dL (70-100) H 01/05/23 16:13 Hemoglobin A1c % 6.3 % (4.27-6.07) H 01/05/23 16:13 Lactic Acid 1.1 mmol/L (0.5-2.2) 01/05/23 22:56 Calcium 11.9 mg/dL (8.5-10.3) H 01/11/23 05:34 Phosphorus 2.7 mg/dL (2.5-4.6) 01/06/23 05:39 Magnesium 1.7 mg/dL (1.7-2.8) 01/07/23 11:05 Iron 20 ug/dL (28-170) L 01/05/23 16:13 TIBC 472 ug/dL (250-450) H 01/05/23 16:13 % Saturation 4 % (20-50) L 01/05/23 16:13 Transferrin 337 mg/dL (192-382) 01/05/23 16:13 Total Bilirubin 0.5 mg/dL (0.2-1.0) 01/11/23 05:34 AST 58 IU/L (10-42) H 01/11/23 05:34 ALT 79 IU/L (10-60) H 01/11/23 05:34 Alkaline Phosphatase 61 IU/L (42-121) 01/11/23 05:34 Ammonia < 10.0 umol/L (7-35) 01/05/23 22:56 Total Creatine Kinase 185 IU/L (22-269) 01/10/23 08:00 B-Natriuretic Peptide 34 pg/mL (5-100) 01/05/23 16:13 Total Protein 7.2 g/dL (6.7-8.2) 01/11/23 05:34 Albumin 4.0 g/dL (3.2-5.5) 01/11/23 05:34 Globulin 3.2 g/dL (2.1-4.2) 01/11/23 05:34 Albumin/Globulin Ratio 1.3 (1.0-2.2) 01/11/23 05:34 Triglycerides 272 mg/dL (-149) H 01/05/23 16:13 Cholesterol 112 mg/dL (-199) 01/05/23 16:13 LDL Cholesterol, Calc 34 mg/dL (-129) 01/05/23 16:13 VLDL Cholesterol 54 mg/dL 01/05/23 16:13 HDL Cholesterol 24 mg/dL (60-) L 01/05/23 16:13 LDL/HDL Ratio 1.4 (<4.4) 01/05/23 16:13 Cholesterol/HDL Ratio 4.7 (<4.4) 01/05/23 16:13 Lipase 20 U/L (22-51) L 01/05/23 16:13 TSH 1.05 uIU/mL (0.34-5.60) 01/05/23 16:13 Urine Color YELLOW 01/05/23 16:43 Urine Clarity CLOUDY (CLEAR) 01/05/23 16:43 Urine pH 5.0 PH (5.0-7.5) 01/05/23 16:43 Ur Specific [place] >=1.030 (1.002-1.030) H 01/05/23 16:43 Urine Protein 100 mg/dL (NEGATIVE) H 01/05/23 16:43 Urine Glucose (UA) NEGATIVE mg/dL (NEGATIVE) 01/05/23 16:43 Urine Ketones 15 mg/dL (NEGATIVE) H 01/05/23 16:43 Urine Occult Blood LARGE (NEGATIVE) H 01/05/23 16:43 Urine Nitrite POSITIVE (NEGATIVE) H 01/05/23 16:43 Urine Bilirubin NEGATIVE (NEGATIVE) 01/05/23 16:43 Urine Urobilinogen 0.2 (NORMAL) E.U./dL (NORMAL) 01/05/23 16:43 Ur Leukocyte Esterase NEGATIVE (NEGATIVE) 01/05/23 16:43 Urine RBC 6-10 /HPF (0-5) H 01/05/23 16:43 Urine WBC 6-10 /HPF (0-5) H 01/05/23 16:43 Ur Squamous Epith Cells FEW Squamous (<= Few) 01/05/23 16:43 Amorphous Sediment Few /LPF 01/05/23 16:43 Urine Bacteria Many /HPF (None Seen) H 01/05/23 16:43 Urine Casts 6-10 Fine Granular /LPF 01/05/23 16:43 Ur Microscopic Review INDICATED 01/05/23 16:43 Urine Culture Comments INDICATED 01/05/23 16:43 Stl C. diff Tox B Gene NEGATIVE (NEGATIVE) 01/05/23 16:38 - Procedures Procedures: Procedures EXCISION OF CECUM, ENDO (11/09/15) RESECTION OF GALLBLADDER, PERCUTANEOUS ENDOSCOPIC APPROACH (10/21/17) Sepsis Event Note (H) - Evaluation Possible source of Sepsis: positive: Genitourinary
[2023-01-11] MEDS: AMITRIPTYLINE 10 MG TABLET PO SCH (22:02)
[2023-01-11] MEDS: ATORVASTATIN 40 MG TABLET PO SCH (22:02)
[2023-01-12] MEDS: PANTOPRAZOLE 40 MG TABLET PO SCH (05:22)
[2023-01-12 05:27] LABS: BASOPHILS # (AUTO) 0.1 10^3/uL (0.0-0.1); BASOPHILS % (AUTO) 0.9 %; EOSINOPHILS # (AUTO) 0.5 10^3/uL (0.0-0.7); EOSINOPHILS % (AUTO) 5.5 %; HCT - HEMATOCRIT 34.7 % (37.0-47.0); HGB - HEMOGLOBIN 10.3 g/dL (12.0-16.0); LYMPHOCYTES # (AUTO) 3.4 10^3/uL (1.5-3.5); LYMPHOCYTES % (AUTO) 35.3 %; MEAN CORPUSCULAR HEMOGLOBIN 25.2 pg (27.0-31.0); MEAN CORPUSCULAR HGB CONC 29.7 g/dL (32.0-36.0); MEAN CORPUSCULAR VOLUME 84.8 fL (81.0-99.0); MEAN PLATELET VOLUME 13.3 fL (7.9-10.8); MONOCYTES # (AUTO) 0.8 10^3/uL (0.0-1.0); MONOCYTES % (AUTO) 8.6 %; NEUTROPHILS # (AUTO) 4.5 10^3/uL (1.5-6.6); NEUTROPHILS % (AUTO) 47.1 %; PLT - PLATELET COUNT 231 10^3/uL (130-450); RED BLOOD COUNT 4.09 10^6/uL (4.20-5.40); RED CELL DISTRIBUTION WIDTH 17.9 % (12.0-15.0); WHITE BLOOD COUNT 9.6 x10^3/uL (4.8-10.8)
[2023-01-12 05:32] LABS: CALCIUM 11.5 mg/dL (8.5-10.3); CREATININE 1.1 mg/dL (0.4-1.0); POTASSIUM 4.6 mmol/L (3.5-5.0)
[2023-01-12] MEDS: SOLIFENACIN SUCCINATE 5 MG TABLET PO SCH (08:46)
[2023-01-12] MEDS: ASCORBIC ACID 500 MG TABLET PO SCH (08:47)
[2023-01-12] MEDS: POTASSIUM CHLORIDE 20 MEQ TABLET PO SCH (08:47)
[2023-01-12] MEDS: SACCHAROMYCES BOULARDII 250 MG CAPSULE PO SCH ×2 (08:47→16:24)
[2023-01-12] MEDS: amLODIPine 5 MG TABLET PO SCH (08:47)
[2023-01-12] MEDS: PRENATAL VITAMIN TABLET PO SCH (08:47)
[2023-01-12] MEDS: METOPROLOL SUCCINATE 25 MG TABLET PO SCH (08:47)
[2023-01-12] MEDS: lisinopriL 20 MG TABLET PO SCH (08:47)
[2023-01-12] MEDS: HEPARIN 5,000 UNIT/ML VIAL SUBQ SCH ×2 (08:48→19:55)
[2023-01-12] MEDS: levoFLOXacin 250 MG TABLET PO SCH (08:48)
[2023-01-12] MEDS: FERROUS SULFATE 325 MG TABLET PO SCH ×2 (08:48→16:23)
[2023-01-12] MEDS: INSULIN LISPRO 300 UNIT/3 ML PEN SUBQ SCH ×4 (08:55→20:25)
[2023-01-12] MEDS ORDERED: LORazepam 1 MG TABLET PO SCH (09:00)
[2023-01-12] MEDS: traMADol 50 MG TABLET PO PRN ×2 (09:49→21:24)
--- NOTE | 2023-01-12 16:40 | PROVIDER PROGRESS NOTE ---
Assessment/Plan - Problem List (1) Wound of left upper extremity Assessment/Plan: L arm wound has improved. drainage has reduce. The wound edge is clear without erythema or swelling. wound culture show rare gram positive cocci, and 2+ normal skin hai continue antibiotics nurse continue daily dressing changes on pt The patient is stable. There are no changes in her medications or management. This is nonbillable rounding visit. We are just awaiting for her to be accepted in a SNF that will accept the payment which her insurance provides 2. Uncontrolled HTN Patient presented with uncontrolled blood pressure, as high as 200 systolic We have moved her lisinopril to the daytime and increased this dosage, added new amlodipine, and increased the metoprolol dosage as well, BP has improved. VS were reviewed 3. E. coli UTI. Patient is on empiric ceftriaxone therapy. UA culture show E.coli with panosensitive to antibiotics. CT of the abdomen was already done to make sure she did not have obstruction. She does have a left kidney cyst that is nonobstructing. Finishing antibx. 4. Acute on chronic kidney injury. All labs were reviwed, BREANNA has resolved, creatinine down to 1.0 5. Transaminitis due to shock liver. pt denies drinking alcohol. improved, close to normal arrange. 6. New onset diabetes mellitus. A1c is 6.3%. She is actually a Borderline Diabetic with this A1c. She does not require sliding scale insulin. We will monitor her fingerstick glu and start insulin if glucose goes above 180. 7. Anemia. Iron was low at 20, TIBC 472, percent saturation 4, transferrin 37. TSH is 1.05. She is fecal occult blood negative. She was already started on oral iron last night. She will need follow-up with her primary care provider to complete the work-up. 8. History of freq falls at home. PT and OT will work with pt and have recommended she go to SNF, consult with social insurance adviser for d/c planning, arranging a SNF 9. Movement disorder. She is not on specific medications for this, and son feels that this is baseline status for mom. He does not remember if she is ever taken antipsychotics. 10. Toxic metabolic encephalopathy due to sepsis. resolved. 11. Sepsis WBC became normal. Lactic acid was never elevated. Tachycardia has resolved. As such, sepsis criteria have resolved, and shock has resolved. resolved. 12. Rhabdomyolysis resolved. [place] is trending town, and creatinine 1.0 Consult with physical therapist and occupational therapist, and prevention of her falls, she is at risk and more rehab advised. awaiting a SNF placement. - Current Meds Current Meds: Current Medications Generic Name Dose Route Start Last Admin Trade Name Freq PRN Reason Stop Dose Admin Acetaminophen 650 mg 01/07/23 08:31 01/11/23 12:30 Acetaminophen 325 Mg Tablet PO 650 mg Q4HR PRN Administration Pain 1-4 or Fever > 38C Albuterol 2.5 mg 01/07/23 12:03 01/08/23 12:43 Albuterol Neb 2.5 Mg/3 Ml INH 2.5 mg RTQ4H PRN Administration Shortness of Air/Wheezing Amitriptyline HCl 10 mg 01/08/23 21:00 01/11/23 22:02 Amitriptyline 10 Mg Tablet PO 10 mg QPM LESLEE Administration Amlodipine Besylate 10 mg 01/10/23 09:00 01/12/23 08:47 Amlodipine 5 Mg Tablet PO 10 mg DAILY LESLEE Administration Ascorbic Acid 500 mg 01/06/23 09:00 01/12/23 08:47 Ascorbic Acid 500 Mg Tablet PO 500 mg DAILY LESLEE Administration Atorvastatin Calcium 80 mg 01/08/23 21:00 01/11/23 22:02 Atorvastatin 40 Mg Tablet PO 80 mg QPM LESLEE Administration Cyclobenzaprine HCl 10 mg 01/08/23 17:00 01/11/23 12:30 Cyclobenzaprine 10 Mg Tablet PO 10 mg TID PRN Administration Spasms Ferrous Sulfate 325 mg 01/06/23 08:00 01/12/23 16:23 Ferrous Sulfate 325 Mg Tablet PO 325 mg BIDWM LESLEE Administration Heparin Sodium (Porcine) 5,000 unit 01/05/23 21:00 01/12/23 08:48 Heparin 5,000 Unit/Ml Vial SUBQ 5,000 unit BID LESLEE Administration Insulin Human Lispro 1 - 5 unit 01/05/23 21:00 01/12/23 16:24 Insulin Lispro 300 Unit/3 Ml Pen SUBQ Not Given 0800,1200,1700,2100 [facility] Protocol Levofloxacin 500 mg 01/12/23 09:00 01/12/23 08:48 Levofloxacin 250 Mg Tablet PO 500 mg DAILY LESLEE Administration Lisinopril 30 mg 01/10/23 10:00 01/12/23 08:47 Lisinopril 20 Mg Tablet PO 30 mg 0900 LESLEE Administration Metoprolol Succinate 50 mg 01/09/23 09:00 01/12/23 08:47 Metoprolol Succinate 25 Mg Tablet PO 50 mg DAILY LESLEE Administration Pantoprazole Sodium 40 mg 01/06/23 07:00 01/12/23 05:22 Pantoprazole 40 Mg Tablet PO 40 mg QDAC LESLEE Administration Potassium Chloride 40 meq 01/06/23 10:00 01/12/23 08:47 Potassium Chloride 20 Meq Tablet PO 40 meq DAILYWM LESLEE Administration Multivit/Folic Acid/Iron 1 tab 01/07/23 09:00 01/12/23 08:47 Vitamin Tablet PO 1 tab DAILY LESLEE Administration Saccharomyces Boulardii 250 mg 01/06/23 08:00 01/12/23 16:24 Saccharomyces Boulardii 250 Mg Capsule PO 250 mg BIDWM LESLEE Administration Senna 8.6 mg 01/05/23 19:27 01/11/23 08:47 Senna 8.6 Mg Tablet PO 8.6 mg DAILY PRN Administration Constipation Solifenacin 10 mg 01/06/23 09:00 01/12/23 08:46 Solifenacin Succinate 5 Mg Tablet PO 10 mg DAILY LESLEE Administration Tramadol HCl 50 mg 01/07/23 09:13 01/12/23 09:49 Tramadol 50 Mg Tablet PO 50 mg Q4HR PRN Administration Moderate Pain (Level 4-6) - Lab Result Fish Bone Diagrams: 01/14/23 05:57 01/12/23 05:18 - Additional Planning My Orders: My Active Orders 01/12/23 09:00 levoFLOXacin [Levaquin] 500 mg PO DAILY Subjective - Subjective Patient Reports: Feeling Better, Resting Comfortably, No Complaints Objective Vital Signs: Vital Signs - 24 hr 01/12/23 01/12/23 01/12/23 01:33 07:27 15:32 Temperature 36.7 C 36.7 C 36.7 C Heart Rate [ 81 85 79 Brachial] Respiratory 18 16 18 Rate Blood Pressure 139/48 H 133/58 H 114/54 L [Right Brachial artery] O2 Saturation 94 93 95 Oxygen O2 Source Room air I&O (Last 24 Hrs): Intake and Output Totals x24h 01/10/23 01/11/23 01/12/23 23:59 23:59 23:59 Intake Total 840 1480 1000 Output Total 300 650 375 Balance 540 830 625 General: Alert, Oriented x3, Other (Obese) HEENT: Mucous membr. moist/pink Neck: Supple Neuro: Alert, Non Focal Cardiovascular: Regular rate Respiratory: No respiratory distress Abdomen: Soft, Other (Obese) Extremities: No clubbing, No edema, Other (L mid arm is bandaged) - Results Results: Laboratory Results WBC 9.6 x10^3/uL (4.8-10.8) 01/12/23 05:18 RBC 4.09 10^6/uL (4.20-5.40) L 01/12/23 05:18 Hgb 10.3 g/dL (12.0-16.0) L 01/12/23 05:18 Hct 34.7 % (37.0-47.0) L 01/12/23 05:18 MCV 84.8 fL (81.0-99.0) 01/12/23 05:18 MCH 25.2 pg (27.0-31.0) L 01/12/23 05:18 MCHC 29.7 g/dL (32.0-36.0) L 01/12/23 05:18 RDW 17.9 % (12.0-15.0) H 01/12/23 05:18 Plt Count 231 10^3/uL (130-450) 01/12/23 05:18 MPV 13.3 fL (7.9-10.8) H 01/12/23 05:18 Neut # (Auto) 4.5 10^3/uL (1.5-6.6) 01/12/23 05:18 Lymph # (Auto) 3.4 10^3/uL (1.5-3.5) 01/12/23 05:18 [place] # (Auto) 0.8 10^3/uL (0.0-1.0) 01/12/23 05:18 Eos # (Auto) 0.5 10^3/uL (0.0-0.7) 01/12/23 05:18 Baso # (Auto) 0.1 10^3/uL (0.0-0.1) 01/12/23 05:18 Absolute Nucleated RBC 0.00 x10^3/uL 01/12/23 05:18 Total Counted 100 01/05/23 16:13 Band Neuts % (Manual) 3 % (0-10) 01/05/23 16:13 Abnorm Lymph % (Manual) 0 % 01/05/23 16:13 Nucleated RBC % 0.0 /100WBC 01/12/23 05:18 Neutrophils # (Manual) 19.2 10^3/uL (1.5-6.6) H 01/05/23 16:13 Lymphocytes # (Manual) 1.6 10^3/uL (1.5-3.5) 01/05/23 16:13 Monocytes # (Manual) 1.3 10^3/uL (0.0-1.0) H 01/05/23 16:13 Eosinophils # (Manual) 0.2 10^3/uL (0-0.7) 01/05/23 16:13 Basophils # (Manual) 0.0 10^3/uL (0-0.1) 01/05/23 16:13 Differential Comment MANUAL DIFFERENTIAL 01/05/23 16:13 Platelet Estimate NORMAL (130-450,000) (NORMAL) 01/05/23 16:13 Platelet Morphology NORMAL APPEARANCE (NORMAL) 01/05/23 16:13 RBC Morph Micro Appear NORMAL APPEARANCE (NORMAL) 01/05/23 16:13 Sodium 139 mmol/L (135-145) 01/12/23 05:18 Potassium 4.6 mmol/L (3.5-5.0) 01/12/23 05:18 Chloride 106 mmol/L (101-111) 01/12/23 05:18 Carbon Dioxide 27 mmol/L (21-32) 01/12/23 05:18 Anion Gap 6.0 (6-13) 01/12/23 05:18 BUN 26 mg/dL (6-20) H 01/12/23 05:18 Creatinine 1.1 mg/dL (0.4-1.0) H 01/12/23 05:18 Estimated GFR (MDRD) 50 (>89) L 01/12/23 05:18 Glucose 108 mg/dL (70-100) H 01/12/23 05:18 POC Whole Bld Glucose 97 mg/dL (70 - 100) 01/12/23 16:24 Estimat Average Glucose 134 mg/dL (70-100) H 01/05/23 16:13 Hemoglobin A1c % 6.3 % (4.27-6.07) H 01/05/23 16:13 Lactic Acid 1.1 mmol/L (0.5-2.2) 01/05/23 22:56 Calcium 11.5 mg/dL (8.5-10.3) H 01/12/23 05:18 Phosphorus 2.7 mg/dL (2.5-4.6) 01/06/23 05:39 Magnesium 1.7 mg/dL (1.7-2.8) 01/07/23 11:05 Iron 20 ug/dL (28-170) L 01/05/23 16:13 TIBC 472 ug/dL (250-450) H 01/05/23 16:13 % Saturation 4 % (20-50) L 01/05/23 16:13 Transferrin 337 mg/dL (192-382) 01/05/23 16:13 Total Bilirubin 0.5 mg/dL (0.2-1.0) 01/11/23 05:34 AST 58 IU/L (10-42) H 01/11/23 05:34 ALT 79 IU/L (10-60) H 01/11/23 05:34 Alkaline Phosphatase 61 IU/L (42-121) 01/11/23 05:34 Ammonia < 10.0 umol/L (7-35) 01/05/23 22:56 Total Creatine Kinase 185 IU/L (22-269) 01/10/23 08:00 B-Natriuretic Peptide 34 pg/mL (5-100) 01/05/23 16:13 Total Protein 7.2 g/dL (6.7-8.2) 01/11/23 05:34 Albumin 4.0 g/dL (3.2-5.5) 01/11/23 05:34 Globulin 3.2 g/dL (2.1-4.2) 01/11/23 05:34 Albumin/Globulin Ratio 1.3 (1.0-2.2) 01/11/23 05:34 Triglycerides 272 mg/dL (-149) H 01/05/23 16:13 Cholesterol 112 mg/dL (-199) 01/05/23 16:13 LDL Cholesterol, Calc 34 mg/dL (-129) 01/05/23 16:13 VLDL Cholesterol 54 mg/dL 01/05/23 16:13 HDL Cholesterol 24 mg/dL (60-) L 01/05/23 16:13 LDL/HDL Ratio 1.4 (<4.4) 01/05/23 16:13 Cholesterol/HDL Ratio 4.7 (<4.4) 01/05/23 16:13 Lipase 20 U/L (22-51) L 01/05/23 16:13 TSH 1.05 uIU/mL (0.34-5.60) 01/05/23 16:13 Urine Color YELLOW 01/05/23 16:43 Urine Clarity CLOUDY (CLEAR) 01/05/23 16:43 Urine pH 5.0 PH (5.0-7.5) 01/05/23 16:43 Ur Specific [place] >=1.030 (1.002-1.030) H 01/05/23 16:43 Urine Protein 100 mg/dL (NEGATIVE) H 01/05/23 16:43 Urine Glucose (UA) NEGATIVE mg/dL (NEGATIVE) 01/05/23 16:43 Urine Ketones 15 mg/dL (NEGATIVE) H 01/05/23 16:43 Urine Occult Blood LARGE (NEGATIVE) H 01/05/23 16:43 Urine Nitrite POSITIVE (NEGATIVE) H 01/05/23 16:43 Urine Bilirubin NEGATIVE (NEGATIVE) 01/05/23 16:43 Urine Urobilinogen 0.2 (NORMAL) E.U./dL (NORMAL) 01/05/23 16:43 Ur Leukocyte Esterase NEGATIVE (NEGATIVE) 01/05/23 16:43 Urine RBC 6-10 /HPF (0-5) H 01/05/23 16:43 Urine WBC 6-10 /HPF (0-5) H 01/05/23 16:43 Ur Squamous Epith Cells FEW Squamous (<= Few) 01/05/23 16:43 Amorphous Sediment Few /LPF 01/05/23 16:43 Urine Bacteria Many /HPF (None Seen) H 01/05/23 16:43 Urine Casts 6-10 Fine Granular /LPF 01/05/23 16:43 Ur Microscopic Review INDICATED 01/05/23 16:43 Urine Culture Comments INDICATED 01/05/23 16:43 Stl C. diff Tox B Gene NEGATIVE (NEGATIVE) 01/05/23 16:38 - Procedures Procedures: Procedures EXCISION OF CECUM, ENDO (11/09/15) RESECTION OF GALLBLADDER, PERCUTANEOUS ENDOSCOPIC APPROACH (10/21/17) Sepsis Event Note (H) - Evaluation Possible source of Sepsis: positive: Genitourinary
[2023-01-12] MEDS: AMITRIPTYLINE 10 MG TABLET PO SCH (19:56)
[2023-01-12] MEDS: CALCIUM CARBONATE CHEW 500 MG TABLET PO PRN (19:56)
[2023-01-12] MEDS: ATORVASTATIN 40 MG TABLET PO SCH (19:56)
--- NOTE | 2023-01-12 21:34 | PROVIDER PROGRESS NOTE ---
Reservations Manager Note - Reservations Manager Note Reservations Manager Note: Patient complaining of heart burn and have ordered TUMS prn discussed with RN
[2023-01-13 05:57] LABS: BASOPHILS # (AUTO) 0.1 10^3/uL (0.0-0.1); BASOPHILS % (AUTO) 0.8 %; EOSINOPHILS # (AUTO) 0.5 10^3/uL (0.0-0.7); EOSINOPHILS % (AUTO) 5.6 %; HGB - HEMOGLOBIN 10.2 g/dL (12.0-16.0); LYMPHOCYTES # (AUTO) 3.3 10^3/uL (1.5-3.5); MEAN CORPUSCULAR HEMOGLOBIN 26.1 pg (27.0-31.0); MEAN CORPUSCULAR HGB CONC 30.9 g/dL (32.0-36.0); MEAN CORPUSCULAR VOLUME 84.4 fL (81.0-99.0); MEAN PLATELET VOLUME 13.2 fL (7.9-10.8); MONOCYTES # (AUTO) 0.9 10^3/uL (0.0-1.0); MONOCYTES % (AUTO) 9.3 %; NEUTROPHILS # (AUTO) 4.4 10^3/uL (1.5-6.6); NEUTROPHILS % (AUTO) 46.7 %; PLT - PLATELET COUNT 233 10^3/uL (130-450); RED BLOOD COUNT 3.91 10^6/uL (4.20-5.40); RED CELL DISTRIBUTION WIDTH 18.2 % (12.0-15.0); WHITE BLOOD COUNT 9.5 x10^3/uL (4.8-10.8)
[2023-01-13] MEDS: PANTOPRAZOLE 40 MG TABLET PO SCH (06:23)
[2023-01-13] MEDS: POTASSIUM CHLORIDE 20 MEQ TABLET PO SCH (08:19)
[2023-01-13] MEDS: SOLIFENACIN SUCCINATE 5 MG TABLET PO SCH (08:19)
[2023-01-13] MEDS: METOPROLOL SUCCINATE 25 MG TABLET PO SCH (08:20)
[2023-01-13] MEDS: amLODIPine 5 MG TABLET PO SCH (08:20)
[2023-01-13] MEDS: ASCORBIC ACID 500 MG TABLET PO SCH (08:21)
[2023-01-13] MEDS: SACCHAROMYCES BOULARDII 250 MG CAPSULE PO SCH ×2 (08:21→18:00)
[2023-01-13] MEDS: levoFLOXacin 250 MG TABLET PO SCH (08:21)
[2023-01-13] MEDS: PRENATAL VITAMIN TABLET PO SCH (08:22)
[2023-01-13] MEDS: traMADol 50 MG TABLET PO PRN (08:22)
[2023-01-13] MEDS: lisinopriL 20 MG TABLET PO SCH (08:22)
[2023-01-13] MEDS: HEPARIN 5,000 UNIT/ML VIAL SUBQ SCH ×2 (08:24→20:38)
[2023-01-13] MEDS: INSULIN LISPRO 300 UNIT/3 ML PEN SUBQ SCH ×4 (08:24→20:38)
[2023-01-13] MEDS: CALCIUM CARBONATE CHEW 500 MG TABLET PO PRN (11:24)
[2023-01-13] MEDS: CYCLOBENZAPRINE 10 MG TABLET PO PRN (15:39)
--- NOTE | 2023-01-13 17:44 | PROVIDER PROGRESS NOTE ---
Assessment/Plan - Problem List (1) Wound of left upper extremity Assessment/Plan: wound has improved. drainage is reduce. The wound edge is clear without erythema or swelling. wound culture show rare gram positive cocci, and 2+ normal skin hai continue antibiotics nurse continue daily dressing change for pt The patient is stable. There are no changes in her medications or management. This is nonbillable rounding visit. Plan: We were waiting for her to be accepted in a SNF that will accept the payment which her insurance provides. Today social contact worker informed me that she has been accepted at [facility] tomorrow, and she will be discharged to there tomorrow 2. HTN Patient presents with uncontrolled blood pressure. We moved her lisinopril to the daytime and increased this dosage, add amlodipine, increase the metoprolol dosage as well, and overnight monitor pt. BP with this has been controlled 3. E. coli UTI. Patient is on empiric ceftriaxone therapy. UA culture show E.coli with panosensitive to antibiotics. CT of the abdomen was already done to make sure she did not have obstruction. She does have a single left kidney cyst that is nonobstructing. She will be completing her course of treatment while here 4. Acute on chronic kidney injury. resolved, creatinine became 1.0 on today. 5. Transaminitis due to shock liver. improved, close to normal arrange. pt denies drinking of alcohol. 6. New onset diabetes mellitus. A1c is 6.3%. She does not require sliding scale insulin. We will monitor this and start insulin if glucose goes above 180. 7. Anemia. Iron was low at 20, TIBC 472, percent saturation 4, transferrin 37. TSH is 1.05. She is fecal occult blood negative. She was already started on oral iron last night. She will need follow-up with her primary care provider to complete the work-up. 8. History of freq falls at home. PT and OT are working with pt and recommend to SNF. We are waiting for her to be accepted in a SNF that will accept the payment which her insurance provides. Today social contact worker informed me that she has been accepted at [facility] tomorrow, and she will be discharged to there tomorrow 9. Movement disorder. She is not on medication such as Reglan, and son feels that this is baseline status for mom. He does not remember if she is ever taken antipsychotics. 10. Toxic metabolic encephalopathy due to sepsis. Resolved. 11. Sepsis Resolved. WBC became normal. Lactic acid was never elevated. Tachycardia has resolved. As such, sepsis criteria have resolved, and shock has resolved. 12. Rhabdomyolysis Resolved. CK is trending town, and creatinine 1.0 Consult with physical therapist and occupational therapist, and prevention of her falls - Current Meds Current Meds: Current Medications Generic Name Dose Route Start Last Admin Trade Name Freq PRN Reason Stop Dose Admin Acetaminophen 650 mg 01/07/23 08:31 01/11/23 12:30 Acetaminophen 325 Mg Tablet PO 650 mg Q4HR PRN Administration Pain 1-4 or Fever > 38C Albuterol 2.5 mg 01/07/23 12:03 01/08/23 12:43 Albuterol Neb 2.5 Mg/3 Ml INH 2.5 mg RTQ4H PRN Administration Shortness of Air/Wheezing Amitriptyline HCl 10 mg 01/08/23 21:00 01/12/23 19:56 Amitriptyline 10 Mg Tablet PO 10 mg QPM LESLEE Administration Amlodipine Besylate 10 mg 01/10/23 09:00 01/13/23 08:20 Amlodipine 5 Mg Tablet PO 10 mg DAILY LESLEE Administration Ascorbic Acid 500 mg 01/06/23 09:00 01/13/23 08:21 Ascorbic Acid 500 Mg Tablet PO 500 mg DAILY LESLEE Administration Atorvastatin Calcium 80 mg 01/08/23 21:00 01/12/23 19:56 Atorvastatin 40 Mg Tablet PO 80 mg QPM LESLEE Administration Calcium Carbonate/Glycine 500 mg 01/12/23 19:42 01/13/23 11:24 Calcium Carbonate Chew 500 Mg Tablet PO 500 mg BID PRN Administration Heartburn Cyclobenzaprine HCl 10 mg 01/08/23 17:00 01/13/23 15:39 Cyclobenzaprine 10 Mg Tablet PO 10 mg TID PRN Administration Spasms Ferrous Sulfate 325 mg 01/06/23 08:00 01/12/23 16:23 Ferrous Sulfate 325 Mg Tablet PO 325 mg BIDWM LESLEE Administration Heparin Sodium (Porcine) 5,000 unit 01/05/23 21:00 01/13/23 08:24 Heparin 5,000 Unit/Ml Vial SUBQ 5,000 unit BID LESLEE Administration Insulin Human Lispro 1 - 5 unit 01/05/23 21:00 01/13/23 16:58 Insulin Lispro 300 Unit/3 Ml Pen SUBQ Not Given 0800,1200,1700,2100 [facility] Protocol Levofloxacin 500 mg 01/12/23 09:00 01/13/23 08:21 Levofloxacin 250 Mg Tablet PO 500 mg DAILY LESLEE Administration Lisinopril 30 mg 01/10/23 10:00 01/13/23 08:22 Lisinopril 20 Mg Tablet PO 30 mg 0900 [facility] Administration Metoprolol Succinate 50 mg 01/09/23 09:00 01/13/23 08:20 Metoprolol Succinate 25 Mg Tablet PO 50 mg DAILY LESLEE Administration Ondansetron HCl 4 mg 01/05/23 19:27 01/13/23 16:55 Ondansetron Odt 4 Mg Tablet TL 4 mg Q6H PRN Administration Nausea / Vomiting Pantoprazole Sodium 40 mg 01/06/23 07:00 01/13/23 06:23 Pantoprazole 40 Mg Tablet PO 40 mg QDAC [facility] Administration Potassium Chloride 40 meq 01/06/23 10:00 01/13/23 08:19 Potassium Chloride 20 Meq Tablet PO 40 meq DAILYWM [facility] Administration Multivit/Folic Acid/Iron 1 tab 01/07/23 09:00 01/13/23 08:22 Vitamin Tablet PO 1 tab DAILY [facility] Administration Saccharomyces Boulardii 250 mg 01/06/23 08:00 01/13/23 08:21 Saccharomyces Boulardii 250 Mg Capsule PO 250 mg BIDWM [facility] Administration Senna 8.6 mg 01/05/23 19:27 01/11/23 08:47 Senna 8.6 Mg Tablet PO 8.6 mg DAILY PRN Administration Constipation Solifenacin 10 mg 01/06/23 09:00 01/13/23 08:19 Solifenacin Succinate 5 Mg Tablet PO 10 mg DAILY [facility] Administration Tramadol HCl 50 mg 01/07/23 09:13 01/13/23 08:22 Tramadol 50 Mg Tablet PO 50 mg Q4HR PRN Administration Moderate Pain (Level 4-6) - Lab Result Fish Bone Diagrams: 01/13/23 05:14 01/12/23 05:18 Subjective - Subjective Patient Reports: Resting Comfortably, No Complaints Objective Vital Signs: Vital Signs - 24 hr 01/13/23 01/13/23 01/13/23 00:07 07:20 16:00 Temperature 36.8 C 36.8 C 36.5 C Heart Rate [ 83 85 82 Brachial] Respiratory 16 16 18 Rate Blood Pressure 134/61 H 128/63 114/53 L [Right Brachial artery] O2 Saturation 95 93 99 Oxygen O2 Source Room air I&O (Last 24 Hrs): Intake and Output Totals x24h 01/11/23 01/12/23 01/13/23 23:59 23:59 23:59 Intake Total 1480 1640 560 Output Total 650 375 Balance 830 1265 560 General: Alert, Oriented x3, Other (Obese female, BMI is 40) HEENT: Mucous membr. moist/pink Neck: Supple, No JVD Neuro: Alert, Non Focal Cardiovascular: No murmurs Respiratory: No respiratory distress Abdomen: Soft, No tenderness Extremities: No clubbing, No edema, Other (Left upper extremity medial side has a bandage) - Results Results: Laboratory Results WBC 9.5 x10^3/uL (4.8-10.8) 01/13/23 05:14 RBC 3.91 10^6/uL (4.20-5.40) L 01/13/23 05:14 Hgb 10.2 g/dL (12.0-16.0) L 01/13/23 05:14 Hct 33.0 % (37.0-47.0) L 01/13/23 05:14 MCV 84.4 fL (81.0-99.0) 01/13/23 05:14 MCH 26.1 pg (27.0-31.0) L 01/13/23 05:14 MCHC 30.9 g/dL (32.0-36.0) L 01/13/23 05:14 RDW 18.2 % (12.0-15.0) H 01/13/23 05:14 Plt Count 233 10^3/uL (130-450) 01/13/23 05:14 MPV 13.2 fL (7.9-10.8) H 01/13/23 05:14 Neut # (Auto) 4.4 10^3/uL (1.5-6.6) 01/13/23 05:14 Lymph # (Auto) 3.3 10^3/uL (1.5-3.5) 01/13/23 05:14 Brooke # (Auto) 0.9 10^3/uL (0.0-1.0) 01/13/23 05:14 Eos # (Auto) 0.5 10^3/uL (0.0-0.7) 01/13/23 05:14 Baso # (Auto) 0.1 10^3/uL (0.0-0.1) 01/13/23 05:14 Absolute Nucleated RBC 0.00 x10^3/uL 01/13/23 05:14 Total Counted 100 01/05/23 16:13 Band Neuts % (Manual) 3 % (0-10) 01/05/23 16:13 Abnorm Lymph % (Manual) 0 % 01/05/23 16:13 Nucleated RBC % 0.0 /100WBC 01/13/23 05:14 Neutrophils # (Manual) 19.2 10^3/uL (1.5-6.6) H 01/05/23 16:13 Lymphocytes # (Manual) 1.6 10^3/uL (1.5-3.5) 01/05/23 16:13 Monocytes # (Manual) 1.3 10^3/uL (0.0-1.0) H 01/05/23 16:13 Eosinophils # (Manual) 0.2 10^3/uL (0-0.7) 01/05/23 16:13 Basophils # (Manual) 0.0 10^3/uL (0-0.1) 01/05/23 16:13 Differential Comment MANUAL DIFFERENTIAL 01/05/23 16:13 Platelet Estimate NORMAL (130-450,000) (NORMAL) 01/05/23 16:13 Platelet Morphology NORMAL APPEARANCE (NORMAL) 01/05/23 16:13 RBC Morph Micro Appear NORMAL APPEARANCE (NORMAL) 01/05/23 16:13 Sodium 139 mmol/L (135-145) 01/12/23 05:18 Potassium 4.6 mmol/L (3.5-5.0) 01/12/23 05:18 Chloride 106 mmol/L (101-111) 01/12/23 05:18 Carbon Dioxide 27 mmol/L (21-32) 01/12/23 05:18 Anion Gap 6.0 (6-13) 01/12/23 05:18 BUN 26 mg/dL (6-20) H 01/12/23 05:18 Creatinine 1.1 mg/dL (0.4-1.0) H 01/12/23 05:18 Estimated GFR (MDRD) 50 (>89) L 01/12/23 05:18 Glucose 108 mg/dL (70-100) H 01/12/23 05:18 POC Whole Bld Glucose 113 mg/dL (70 - 100) H 01/13/23 16:45 Estimat Average Glucose 134 mg/dL (70-100) H 01/05/23 16:13 Hemoglobin A1c % 6.3 % (4.27-6.07) H 01/05/23 16:13 Lactic Acid 1.1 mmol/L (0.5-2.2) 01/05/23 22:56 Calcium 11.5 mg/dL (8.5-10.3) H 01/12/23 05:18 Phosphorus 2.7 mg/dL (2.5-4.6) 01/06/23 05:39 Magnesium 1.7 mg/dL (1.7-2.8) 01/07/23 11:05 Iron 20 ug/dL (28-170) L 01/05/23 16:13 TIBC 472 ug/dL (250-450) H 01/05/23 16:13 % Saturation 4 % (20-50) L 01/05/23 16:13 Transferrin 337 mg/dL (192-382) 01/05/23 16:13 Total Bilirubin 0.5 mg/dL (0.2-1.0) 01/11/23 05:34 AST 58 IU/L (10-42) H 01/11/23 05:34 ALT 79 IU/L (10-60) H 01/11/23 05:34 Alkaline Phosphatase 61 IU/L (42-121) 01/11/23 05:34 Ammonia < 10.0 umol/L (7-35) 01/05/23 22:56 Total Creatine Kinase 185 IU/L (22-269) 01/10/23 08:00 B-Natriuretic Peptide 34 pg/mL (5-100) 01/05/23 16:13 Total Protein 7.2 g/dL (6.7-8.2) 01/11/23 05:34 Albumin 4.0 g/dL (3.2-5.5) 01/11/23 05:34 Globulin 3.2 g/dL (2.1-4.2) 01/11/23 05:34 Albumin/Globulin Ratio 1.3 (1.0-2.2) 01/11/23 05:34 Triglycerides 272 mg/dL (-149) H 01/05/23 16:13 Cholesterol 112 mg/dL (-199) 01/05/23 16:13 LDL Cholesterol, Calc 34 mg/dL (-129) 01/05/23 16:13 VLDL Cholesterol 54 mg/dL 01/05/23 16:13 HDL Cholesterol 24 mg/dL (60-) L 01/05/23 16:13 LDL/HDL Ratio 1.4 (<4.4) 01/05/23 16:13 Cholesterol/HDL Ratio 4.7 (<4.4) 01/05/23 16:13 Lipase 20 U/L (22-51) L 01/05/23 16:13 TSH 1.05 uIU/mL (0.34-5.60) 01/05/23 16:13 Urine Color YELLOW 01/05/23 16:43 Urine Clarity CLOUDY (CLEAR) 01/05/23 16:43 Urine pH 5.0 PH (5.0-7.5) 01/05/23 16:43 Ur Specific [place] >=1.030 (1.002-1.030) H 01/05/23 16:43 Urine Protein 100 mg/dL (NEGATIVE) H 01/05/23 16:43 Urine Glucose (UA) NEGATIVE mg/dL (NEGATIVE) 01/05/23 16:43 Urine Ketones 15 mg/dL (NEGATIVE) H 01/05/23 16:43 Urine Occult Blood LARGE (NEGATIVE) H 01/05/23 16:43 Urine Nitrite POSITIVE (NEGATIVE) H 01/05/23 16:43 Urine Bilirubin NEGATIVE (NEGATIVE) 01/05/23 16:43 Urine Urobilinogen 0.2 (NORMAL) E.U./dL (NORMAL) 01/05/23 16:43 Ur Leukocyte Esterase NEGATIVE (NEGATIVE) 01/05/23 16:43 Urine RBC 6-10 /HPF (0-5) H 01/05/23 16:43 Urine WBC 6-10 /HPF (0-5) H 01/05/23 16:43 Ur Squamous Epith Cells FEW Squamous (<= Few) 01/05/23 16:43 Amorphous Sediment Few /LPF 01/05/23 16:43 Urine Bacteria Many /HPF (None Seen) H 01/05/23 16:43 Urine Casts 6-10 Fine Granular /LPF 01/05/23 16:43 Ur Microscopic Review INDICATED 01/05/23 16:43 Urine Culture Comments INDICATED 01/05/23 16:43 Stl C. diff Tox B Gene NEGATIVE (NEGATIVE) 01/05/23 16:38 - Procedures Procedures: Procedures EXCISION OF CECUM, ENDO (11/09/15) RESECTION OF GALLBLADDER, PERCUTANEOUS ENDOSCOPIC APPROACH (10/21/17) Sepsis Event Note (H) - Evaluation Possible source of Sepsis: positive: Genitourinary
[2023-01-13] MEDS: FERROUS SULFATE 325 MG TABLET PO SCH (18:00)
[2023-01-13] MEDS: AMITRIPTYLINE 10 MG TABLET PO SCH (20:37)
[2023-01-13] MEDS: ATORVASTATIN 40 MG TABLET PO SCH (20:38)
[2023-01-14] MEDS: ACETAMINOPHEN 325 MG TABLET PO PRN ×2 (01:07→08:21)
[2023-01-14] MEDS: PANTOPRAZOLE 40 MG TABLET PO SCH (06:31)
[2023-01-14 07:17] LABS: BASOPHILS # (AUTO) 0.1 10^3/uL (0.0-0.1); BASOPHILS % (AUTO) 0.6 %; EOSINOPHILS # (AUTO) 0.5 10^3/uL (0.0-0.7); EOSINOPHILS % (AUTO) 4.4 %; HCT - HEMATOCRIT 34.1 % (37.0-47.0); HGB - HEMOGLOBIN 10.2 g/dL (12.0-16.0); LYMPHOCYTES # (AUTO) 3.4 10^3/uL (1.5-3.5); LYMPHOCYTES % (AUTO) 31.3 %; MEAN CORPUSCULAR HEMOGLOBIN 25.9 pg (27.0-31.0); MEAN CORPUSCULAR HGB CONC 29.9 g/dL (32.0-36.0); MEAN CORPUSCULAR VOLUME 86.5 fL (81.0-99.0); MEAN PLATELET VOLUME 13.6 fL (7.9-10.8); MONOCYTES # (AUTO) 0.9 10^3/uL (0.0-1.0); MONOCYTES % (AUTO) 7.9 %; NEUTROPHILS # (AUTO) 5.9 10^3/uL (1.5-6.6); NEUTROPHILS % (AUTO) 53.8 %; PLT - PLATELET COUNT 246 10^3/uL (130-450); RED BLOOD COUNT 3.94 10^6/uL (4.20-5.40); RED CELL DISTRIBUTION WIDTH 17.9 % (12.0-15.0)
--- NOTE | 2023-01-14 07:36 | Discharge Plan ---
"Discharge Plan for SNF / [facility] - Discharge Plan And Transition Orders Problem Reviewed?: Yes Disposition: 03 SNF DC/Xfer Condition: Stable Allergies and Adverse Reactions: Allergies Allergy/AdvReac Type Severity Reaction Status Date / Time morphine Allergy Severe Rash Verified 05/28/18 08:46 Penicillins Allergy Intermediate Rash Verified 05/28/18 08:46 Health Concerns: This patient was hospitalized due to frequent falls, sepsis, UTI, had rhabdomyolysis, BREANNA, bruises and wounds and newly diagnosed DM (borderline). She completed antibiotics. The patient needs rehab at a SNF. Plan of Treatment: Daily or twice daily PT and OT. Care Goals: Improvement in symptoms and stabilization are the goals. Assessment: The patient understands and is agreeable with the plan. - SNF / CORRECTION Transition Orders Admit to (Facility): [facility] Under the care of (Name): Maryjane Thrasher NP Discharge Diagnosis: 1. Sepsis Resolved 2. Toxic metabolic encephalopathy Due to sepsis, it resolved. 3. Transaminitis Due to shock liver, it improved 4. E. coli UTI. Completed her course of treatment while here 5. History of freq falls at home. Needs rehab at SNF 6. Wound of left upper extremity A skin tear that became a wound, from one of her falls 7. Rhabdomyolysis Resolved. 8. BREANNA Resolved. 9. New onset diabetes mellitus. A1c was 6.3%. She is on a Diabetic diet only. 10. HTN Initially uncontrolled and meds were adjusted 11. Anemia, iron deficiency On new oral iron. Stool was guaic negative. 12. Movement disorder. She takes Lyrica Medicare Certification Statement: I certify that Post Hospital correction care is medically necessary on a continuing basis for any of the conditions for which she/he is receiving care during hospitalization. Notify PCP of admission and forward orders to primary provider for signature. Weight on admission and: Weekly Call PCP immediately if weight increases by: 5 kg Other Notification Orders: Call PCP immediately if patient develops dyspnea, chest pain/tightness or edema. House Bowel Program: Yes Additional Bowel Program Orders: If no BM after 2 days, nurse may give M.O.M. 30ml PO PRN and/or ducolax Supp 1 AK and/or HUGO 250mg P.O., and/or senna 1-2 tabs PO. On day 3 nurse may give repeat above order until residents constipation is resolved. Annual Influenza Vaccine (between Feb 28 and September 27): Yes Two-step PPD per [facility] [phone] or approved exception documents: Yes Treatments & Other Orders: Daily or twice daily PT and OT Medication Orders: PLEASE REFER TO THE DISCHARGE MEDICATION LIST. Insulin Orders?: No - Medications New Prescriptions: Ferrous Sulfate [Feosol] 325 mg PO DAILY #30 tab amLODIPine [Norvasc] 10 mg PO DAILY #30 tab - Diet Type: Geriatric (Diabetic diet) Texture: Regular Liquids: Thin May have monthly special meal: Yes - Therapies | Activity Therapy: Evaluation | Treat if indicated: PT, OT Rehabilitation Potential: Maximize functional status Activity: Activity as Tolerated Weight Bearing: Full Weight Assistance Devices: Walker Follow Up: Patient to see her PCP, Brigida Thrasher NP, after discharge from SNF. Insulin Orders - SNF Basal | Correction | Custom Orders: Diagnosis: Diabetes Initiate hypo and hyperglycemia protocols for BG <70 and BG >375. May check BG PRN for signs/symptoms of dysglycemia. Frequency of BG checks: AM Basal Insulin: None Correction Insulin: - None"
[2023-01-14] MEDS: ALBUTEROL NEB 2.5 MG/3 ML INH PRN (08:07)
--- NOTE | 2023-01-14 08:15 | DISCHARGE SUMMARY ---
Discharge Summary Admit Date: 01/05/23 Discharge Date: 01/14/23 Discharging Provider: Breann Ugalde MD Primary Care Provider: Maryjane Thrasher NP Condition at Discharge: Stable Discharge Disposition: SNF DC/Xfer Discharge Facility Name: [facility] History of Present Illness: his 67 y/o WF pt presents with generalized weakness and multiple falls over last 1-2 days. she states she has been feeling overall weak over last 2 weeks. her daughter lives with her, but she is now in rehab and will be in rehab for 1 yr, so currently, she is living alone. she states she had fallen yesterday after feeling dizzy and she had "blacked out." the paramedics had arrived and helped pick her up and offered to take her to hospital, and she refused. this episode occurred again. most recently, she had woke up last night to use the bathroom and the next thing she remembers is that she was lying on the floor. her son had tried callling her but when she did not answer, he sent his girlfriend to check and she found pt on the floor. paramedics were called and pt was brought to hospital. pt denies any dysuria, headache, chest pain, fevers, chills. she does feel overall achy. no seizures noted or reported. - HOSPITAL COURSE Hospital Course: 1. Sepsis She presented with white blood count of 22.3, tachycardic at 108, her lactic acid was normal. Her blood pressure was "soft" at 108/50. She was obtunded and lethargic. Sepsis resolved with iv fluids and antibiotics. The source was felt to be a UTI. 2. Toxic metabolic encephalopathy Due to sepsis, her confusion and somnolence resolved. 3. Transaminitis Due to shock liver, it improved during this hospital stay. 4. E. coli UTI. She was initially put on IV ceftriaxone empirically. This was later changed to p.o. Levaquin. She completed her course of antibiotic treatment while here 5. Frequent falls at home. This was felt to be due to her confusion, infection, underlying weakness and movement disorder and her "soft" BP. She was seen by PT and OT and advised that she needs rehab at SNF. She was discharged to [facility] for PT and OT rehab. 6. Wound of left upper extremity This was a skin tear from one of her falls, that became a wound. It was managed with dressing changes and local care. 7. Rhabdomyolysis At presentation she had a CK of 1713. This resolved with iv hydration. 8. BREANNA At presentation she had a creatinine of 3.3. Her renal function improved with IV hydration. At discharge her creatinine was 1.1. 9. New onset type 2 diabetes mellitus. A1c was 6.3%. She is on a Diabetic diet only. 10. HTN Initially poorly controlled and meds were adjusted. She is now on Lisinopril and Metoprolol and new amlodipine 11. Anemia, iron deficiency She is on new oral iron. Stool was guaic negative. Hemoglobin at discharge was 10.2. 12. Hx Movement disorder. She takes Lyrica. PT and OT evaluations were done. She was not yet back to her baseline thus rehab at a SNF was advised. - ALLERGIES Allergies/Adverse Reactions: Allergies Allergy/AdvReac Type Severity Reaction Status Date / Time morphine Allergy Severe Rash Verified 05/28/18 08:46 Penicillins Allergy Intermediate Rash Verified 05/28/18 08:46 - MEDICATIONS Home Medications: Ambulatory Orders Medication Instructions Recorded Confirmed Loratadine [Claritin] 10 mg PO DAILY 02/01/13 01/06/23 Albuterol Sulfate [Proair 1 puffs INH Q4H PRN 11/09/15 01/06/23 Respiclick] Esomeprazole Magnesium [Nexium] 20 mg PO QDAC 11/09/15 01/06/23 Acetaminophen [Tylenol] 500 mg PO BID 01/06/23 01/06/23 Amitriptyline [Elavil] 10 mg PO QPM 01/06/23 01/06/23 Atorvastatin Calcium [Lipitor] 80 mg PO QPM 01/06/23 01/06/23 Cyanocobalamin (Vitamin B-12) 1 cap PO DAILY 01/06/23 01/06/23 [Vitamin B-12] Cyclobenzaprine [Flexeril] 10 mg PO TID PRN 01/06/23 01/06/[address] [Voltaren] 75 mg PO BID PRN 01/06/23 01/06/23 Metoprolol Succinate [Toprol Xl] 25 mg PO DAILY 01/06/23 01/06/23 Multivit-Minerals/Folic Acid 1 tab PO DAILY 01/06/23 01/06/23 [Centrum Adult 50 Plus Gummy] Oxybutynin Chloride [Ditropan Xl] 15 mg PO DAILY 01/06/23 01/06/23 Pregabalin [Lyrica] 150 mg PO BID 01/06/23 01/06/23 lisinopriL [Lisinopril] 10 mg PO QPM 01/06/23 01/06/23 Amitriptyline [Elavil] 10 mg PO HS #30 tablet 01/14/23 Ferrous Sulfate [Feosol] 325 mg PO DAILY #30 tab 01/14/23 Pregabalin [Lyrica] 150 mg PO BID #60 cap 01/14/23 amLODIPine [Norvasc] 10 mg PO DAILY #30 tab 01/14/23 - PHYSICAL EXAM AT DISCHARGE General Appearance: positive: No acute distress, Alert, Other (Obese, BMI 40) Eyes Bilateral: positive: Normal inspection, EOMI ENT: positive: ENT inspection nml, No signs of dehydration Neck: positive: Nml inspection, No JVD Respiratory: positive: No respiratory distress, Breath sounds nml Cardiovascular: positive: Regular rate & rhythm, No murmur Abdomen: positive: Non-tender, No distention, Other (Obese with a pannus) Skin: positive: Warm, Dry Extremities: positive: Non-tender, Other (Skin tear that has a bandage on it, on the left distal medial arm) Neurologic/Psychiatric: positive: Oriented x3, Motor nml - LABS Result Diagrams: 01/14/23 05:57 01/12/23 05:18 - DIAGNOSTIC IMAGING Diagnostic Imaging Results: Final report reviewed - SEPSIS Current Stage of Sepsis: Sepsis Possible source of Sepsis: Genitourinary - FOLLOW UP Follow Up: Patient to have a follow-up with PCP after discharge from [facility] at [facility]. - TIME SPENT Time Spent in Discharge (Minutes): 45
[2023-01-14] MEDS: ASCORBIC ACID 500 MG TABLET PO SCH (08:17)
[2023-01-14] MEDS: lisinopriL 20 MG TABLET PO SCH (08:17)
[2023-01-14] MEDS: HEPARIN 5,000 UNIT/ML VIAL SUBQ SCH (08:17)
[2023-01-14] MEDS: PRENATAL VITAMIN TABLET PO SCH (08:17)
[2023-01-14] MEDS: SOLIFENACIN SUCCINATE 5 MG TABLET PO SCH (08:18)
[2023-01-14] MEDS: POTASSIUM CHLORIDE 20 MEQ TABLET PO SCH (08:18)
[2023-01-14] MEDS: METOPROLOL SUCCINATE 25 MG TABLET PO SCH (08:18)
[2023-01-14] MEDS: levoFLOXacin 250 MG TABLET PO SCH (08:18)
[2023-01-14] MEDS: FERROUS SULFATE 325 MG TABLET PO SCH (08:18)
[2023-01-14] MEDS: amLODIPine 5 MG TABLET PO SCH (08:19)
[2023-01-14] MEDS: SACCHAROMYCES BOULARDII 250 MG CAPSULE PO SCH (08:19)
[2023-01-14] MEDS: INSULIN LISPRO 300 UNIT/3 ML PEN SUBQ SCH (08:27)
[2023-01-14 08:56] VITALS: BP 123/47
[2023-01-14] MEDS: CALCIUM CARBONATE CHEW 500 MG TABLET PO PRN (11:18)
== END 2023-01-14 12:18 | DRG 871 ==
LOC: ED 15:25 → MS2 19:32
PROVIDERS: ADMIT Student in an Organized Health Care Education/Training Program; ATTEND Internal Medicine
DX: A41.9 Sepsis, unspecified organism (principal); A41.51 Sepsis due to Escherichia coli [E. coli]; G92.8 Other toxic encephalopathy; R65.21 Severe sepsis with septic shock; S40.022A Contusion of left upper arm, initial encounter; K72.00 Acute and subacute hepatic failure without coma; N17.9 Acute kidney failure, unspecified; D72.829 Elevated white blood cell count, unspecified; N39.0 Urinary tract infection, site not specified; N30.00 Acute cystitis without hematuria; G25.9 Extrapyramidal and movement disorder, unspecified; R94.5 Abnormal results of liver function studies; R07.9 Chest pain, unspecified; M62.82 Rhabdomyolysis; R55 Syncope and collapse; E11.29 Type 2 diabetes mellitus with other diabetic kidney complication; I10 Essential (primary) hypertension; D64.9 Anemia, unspecified; R19.7 Diarrhea, unspecified; R74.01 Elevation of levels of liver transaminase levels; J45.909 Unspecified asthma, uncomplicated; E11.65 Type 2 diabetes mellitus with hyperglycemia; B96.22 Other specified Shiga toxin-producing Escherichia coli [E. coli] [STEC] as the cause of diseases classified elsewhere; S51.002A Unspecified open wound of left elbow, initial encounter; W19.XXXA Unspecified fall, initial encounter; Y92.002 Bathroom of unspecified non-institutional (private) residence as the place of occurrence of the external cause; D50.9 Iron deficiency anemia, unspecified; K21.9 Gastro-esophageal reflux disease without esophagitis; K59.09 Other constipation; E11.22 Type 2 diabetes mellitus with diabetic chronic kidney disease; N18.9 Chronic kidney disease, unspecified; F41.9 Anxiety disorder, unspecified; Z91.81 History of falling
CPT/HCPCS: 36415; 51701; 70450; 71045; 74176; 76700; 80048; 80053; 80061; 81001; 82140; 82272; 82550; 83036; 83540; 83605; 83690; 83735; 83880; 84100; 84443; 84466; 85025; 87040; 87070; 87086; 87181; 87205; 87493; 93005; 93308; 94640; 96361; 96365; 97116; 97162; 97166; 97530; 97535; 99285; A9270; Q0162; 81003; 83721

== ENCOUNTER 2023-01-30 07:46 | Observation (INO) | payer MEDICARE, MEDICAID ==
[2023-01-30] MEDS ORDERED: IPRATROPIUM/ALBUTEROL 3 ML NEB INH STA (08:01)
--- NOTE | 2023-01-30 08:03 | ED Physician Documentation ---
PD HPI DYSPNEA - Stated complaint Stated Complaint: SOA/LEG SWELLING - History obtained from History obtained from: Patient, Family - History of Present Illness Timing - onset: Today Timing - onset during: Rest Timing - duration: Hours Timing - details: Abrupt onset, Still present Inciting event(s): Other (history of astma/RAD.). No: URI Review of Systems Musculoskeletal: reports: Extremity swelling (bilateral leg edema for a week or so, increasing.) PD PAST MEDICAL HISTORY - Past Medical History Cardiovascular: Hypertension Respiratory: Asthma, Shortness of breath Neuro: None Endocrine/Autoimmune: None GI: GERD, Chronic constipation [employer]: None : Incontinence, Frequency HEENT: None Psych: Anxiety, Panic attacks Musculoskeletal: None Derm: None - Past Surgical History Past Surgical History: Yes General: Appendectomy Ortho: Hip replacement - Present Medications Home Medications: Ambulatory Orders Medication Instructions Recorded Confirmed Albuterol Sulfate [Proair 1 puffs INH Q4H PRN 11/09/15 01/30/23 Respiclick] Atorvastatin Calcium [Lipitor] 80 mg PO QPM 01/06/23 01/30/23 Cyclobenzaprine [Flexeril] 10 mg PO TID PRN 01/06/23 01/30/[address] [Voltaren] 75 mg PO BID PRN 01/06/23 01/30/23 Metoprolol Succinate [Toprol Xl] 25 mg PO DAILY 01/06/23 01/30/23 Pregabalin [Lyrica] 150 mg PO BID 01/06/23 01/30/23 lisinopriL [Lisinopril] 10 mg PO QPM 01/06/23 01/30/23 Amitriptyline [Elavil] 10 mg PO HS #30 tablet 01/14/23 01/30/23 amLODIPine [Norvasc] 10 mg PO DAILY #30 tab 01/14/23 01/30/23 Acetaminophen [Aphen] 1 tab PO BID PRN 01/30/23 01/30/23 oxyBUTYnin chloride [Oxybutynin 15 mg PO DAILY 01/30/23 01/30/23 Chloride ER] - Allergies Allergies/Adverse Reactions: Allergies Allergy/AdvReac Type Severity Reaction Status Date / Time morphine Allergy Severe Rash Verified 01/30/23 08:01 Penicillins Allergy Intermediate Rash Verified 01/30/23 08:01 - Social History Does the pt smoke?: No Smoking Status: Never smoker Does the pt drink ETOH?: No Does the pt have substance abuse?: No - Immunizations Immunizations are current?: No Immunizations: TDAP >10years/unknown - POLST Patient has POLST: No PD ED PE NORMAL - General General: Alert and oriented X 3, Well developed/nourished, Other (appears in distress with work of breathing and dyspnea. ) - HEENT HEENT: Atraumatic - Neck Neck: Supple, no meningeal sign, No adenopathy - Cardiac Cardiac: RRR, No murmur - Respiratory Respiratory: Other (The patient does have tachypnea with diffuse wheezing and work of breathing. Her oxygenation initially 74% on room air. Improves with high flow nonrebreather.) - Abdomen Abdomen: Soft, Non tender - Back Back: No CVA TTP - Derm Derm: Normal color, Warm and dry - Extremities Extremities: No calf tenderness / cord, Other (2+ bilateral pitting edema in both legs up to the knees. No tenderness per se. No redness or infection appearance.) - Neuro Neuro: Alert and oriented X 3, No motor deficit, Normal speech Eye Opening: Spontaneous Motor: Obeys Commands Verbal: Oriented GCS Score: 15 Results - Vitals Vitals: Vital Signs - 24 hr 01/30/23 01/30/23 01/30/23 07:56 08:01 08:10 Temperature 36.6 C Heart Rate 99 95 Respiratory 34 H 24 Rate Blood Pressure 123/100 H O2 Saturation 74 L 74 L If not protocol 15 : Oxygen Flow, liters/minute 01/30/23 01/30/23 01/30/23 08:17 08:47 08:52 Temperature Heart Rate 99 96 96 Respiratory 20 20 20 Rate Blood Pressure 106/93 H 107/44 L O2 Saturation 100 95 If not protocol 4 5 4 : Oxygen Flow, liters/minute 01/30/23 01/30/23 01/30/23 09:17 09:30 10:00 Temperature 36 C L Heart Rate 96 94 Respiratory 20 15 Rate Blood Pressure 104/46 L 107/57 L O2 Saturation 100 100 94 If not protocol 4 4 : Oxygen Flow, liters/minute 01/30/23 01/30/23 01/30/23 10:30 11:00 11:16 Temperature Heart Rate 88 94 94 Respiratory 20 18 16 Rate Blood Pressure 114/57 L 116/51 L O2 Saturation 99 96 If not protocol 4 4 3 : Oxygen Flow, liters/minute 01/30/23 01/30/23 01/30/23 11:30 11:59 12:30 Temperature Heart Rate 95 94 95 Respiratory 22 20 15 Rate Blood Pressure 116/51 L 116/51 L 112/68 O2 Saturation 100 100 100 If not protocol 4 4 : Oxygen Flow, liters/minute 01/30/23 13:00 Temperature Heart Rate 95 Respiratory 16 Rate Blood Pressure 123/66 O2 Saturation 99 If not protocol 4 : Oxygen Flow, liters/minute Oxygen O2 Source Nasal cannula Oxygen Flow Rate 4 - Labs Labs: Laboratory Tests 01/30/23 01/30/23 01/30/23 08:05 08:08 08:08 WBC 10.8 RBC 3.45 L Hgb 9.4 L Hct 30.2 L MCV 87.5 MCH 27.2 MCHC 31.1 L RDW 18.5 H Plt Count 150 MPV 13.0 H Neut # (Auto) 6.8 H Lymph # (Auto) 2.6 Ness # (Auto) 0.8 Eos # (Auto) 0.5 Baso # (Auto) 0.1 Absolute Nucleated RBC 0.00 Nucleated RBC % 0.0 D-Dimer Sodium 133 L Potassium 3.3 L Chloride 101 Carbon Dioxide 20 L Anion Gap 12.0 BUN 41 H Creatinine 3.4 H Estimated GFR (MDRD) 14 L Glucose 125 H Lactic Acid Calcium 9.4 Magnesium Total Bilirubin 0.4 AST 35 ALT 32 Alkaline Phosphatase 62 Troponin I High Sens B-Natriuretic Peptide Total Protein 6.4 L Albumin 3.7 Globulin 2.7 Albumin/Globulin Ratio 1.4 Lipase 21 L Nasal Adenovirus (PCR) NOT DETECTED Nasal B. parapertussis DNA (PCR) NOT DETECTED Nasal Coronavir 229E PCR NOT DETECTED Nasal Coronavir HKU1 PCR NOT DETECTED Nasal Coronavir NL63 PCR NOT DETECTED Nasal Coronavir OC43 PCR NOT DETECTED Nasal Enterovir/Rhinovir PCR NOT DETECTED Nasal Influenza B PCR NOT DETECTED Nasal Influenza A PCR NOT DETECTED Nasal Parainfluen 1 PCR NOT DETECTED Nasal Parainfluen 2 PCR NOT DETECTED Nasal Parainfluen 3 PCR NOT DETECTED Nasal Parainfluen 4 PCR NOT DETECTED Nasal RSV (PCR) NOT DETECTED Nasal B.pertussis DNA PCR NOT DETECTED Nasal C.pneumoniae (PCR) NOT DETECTED Robinson Human Metapneumo PCR NOT DETECTED Nasal M.pneumoniae (PCR) NOT DETECTED Nasal SARS-CoV-2 (PCR) NOT DETECTED 01/30/23 01/30/23 01/30/23 08:08 08:08 08:13 WBC RBC Hgb Hct MCV MCH MCHC RDW Plt Count MPV Neut # (Auto) Lymph # (Auto) Ness # (Auto) Eos # (Auto) Baso # (Auto) Absolute Nucleated RBC Nucleated RBC % D-Dimer 357.4 H Sodium Potassium Chloride Carbon Dioxide Anion Gap BUN Creatinine Estimated GFR (MDRD) Glucose Lactic Acid Calcium Magnesium 1.2 L Total Bilirubin AST ALT Alkaline Phosphatase Troponin I High Sens 7.0 B-Natriuretic Peptide 83 Total Protein Albumin Globulin Albumin/Globulin Ratio Lipase Nasal Adenovirus (PCR) Nasal B. parapertussis DNA (PCR) Nasal Coronavir 229E PCR Nasal Coronavir HKU1 PCR Nasal Coronavir NL63 PCR Nasal Coronavir OC43 PCR Nasal Enterovir/Rhinovir PCR Nasal Influenza B PCR Nasal Influenza A PCR Nasal Parainfluen 1 PCR Nasal Parainfluen 2 PCR Nasal Parainfluen 3 PCR Nasal Parainfluen 4 PCR Nasal RSV (PCR) Nasal B.pertussis DNA PCR Nasal C.pneumoniae (PCR) Robinson Human Metapneumo PCR Nasal M.pneumoniae (PCR) Nasal SARS-CoV-2 (PCR) 01/30/23 08:13 WBC RBC Hgb Hct MCV MCH MCHC RDW Plt Count MPV Neut # (Auto) Lymph # (Auto) Ness # (Auto) Eos # (Auto) Baso # (Auto) Absolute Nucleated RBC Nucleated RBC % D-Dimer Sodium Potassium Chloride Carbon Dioxide Anion Gap BUN Creatinine Estimated GFR (MDRD) Glucose Lactic Acid 0.8 Calcium Magnesium Total Bilirubin AST ALT Alkaline Phosphatase Troponin I High Sens B-Natriuretic Peptide Total Protein Albumin Globulin Albumin/Globulin Ratio Lipase Nasal Adenovirus (PCR) Nasal B. 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 ) chest xray Relevant Findings:: Prelim report reviewed, EMP independent interpretation of test (mild increased vascularity suggestive of edema. ) PD Medical Decision Making - ED course Complexity details: reviewed results (CXR showing no pneumonia/infiltrates, does not appear vascular congestion. Duplex US legs withut DVT. ), considered differential, d/w patient Reviewed Lab Results: The patient's respiratory PCR panel is negative. Chest x-ray was read as no infiltrates and just some mild congestion vascular. BNP and troponin were both normal. White count was normal as well. D-dimer was elevated. The monitor showed a normal sinus rhythm ED course: The patient presented with marked dyspnea and hypoxia that had started just this morning. She has had increased leg edema bilaterally for several days to week. No tenderness per se. She has not noticed orthopnea. No fevers or cough. She does have some wheeziness and history of asthma/reactive airway disease. She had been in the hospital recently and then in assisted living or a care facility for rehab. She has been back home for about a week. This dyspnea came on abruptly today. The patient was given nasal high flow oxygen by facemask and given DuoNeb. est x-ray was done promptly. No obvious significant abnormality noted on x-ray. Her oxygenation did improve with supplemental facemask. She did have improvement in her breathing with a DuoNeb and then a repeat albuterol. We were able to titrate down the oxygen input to subsequently nasal cannula at 4 L. However below that she was desaturating below 90%. She did not have any apparent pneumonia no pneumothorax and did not appear to be in CHF based on just the chest x-ray. There is no JVD. She had had progressive edema both legs for the last week. This raise concern for possible DVTs and PE. Her creatinine was acutely elevated to 3.4 so could not do a chest CTA at this point safely. I did ultrasound both legs and there is no DVT noted. This makes PE less likely but not excluded per se. I had already given the patient a shot of Lovenox earlier in the ED stay for concern of that with high probability clinically. The patient was more stable now with improved oxygenation and minimal work of breathing. However there was still some wheeziness noted and she was still needing nasal cannula. I talked with the hospitalist Dr. Pizano who agreed to place the patient in the hospital for further treatment and evaluation. - Critical Care Time(min): 50 Time Includes: Direct patient care, Reassess patient, Coordinate care Data interpretation: Labs, Pulse ox, CXR Procedures excluded from critical care time: EKG Departure - Departure Disposition: ED Place in Observation Clinical Impression: Hypoxia, Dyspnea, Bilateral edema of lower extremity Reactive airway disease with acute exacerbation Qualifiers: Asthma severity: severe Discharge Date/Time: 01/30/23 13:30
[2023-01-30 08:15] LABS: BASOPHILS # (AUTO) 0.1 10^3/uL (0.0-0.1); BASOPHILS % (AUTO) 0.5 %; EOSINOPHILS # (AUTO) 0.5 10^3/uL (0.0-0.7); EOSINOPHILS % (AUTO) 4.4 %; HCT - HEMATOCRIT 30.2 % (37.0-47.0); HGB - HEMOGLOBIN 9.4 g/dL (12.0-16.0); LYMPHOCYTES # (AUTO) 2.6 10^3/uL (1.5-3.5); LYMPHOCYTES % (AUTO) 24.2 %; MEAN CORPUSCULAR HEMOGLOBIN 27.2 pg (27.0-31.0); MEAN CORPUSCULAR HGB CONC 31.1 g/dL (32.0-36.0); MEAN CORPUSCULAR VOLUME 87.5 fL (81.0-99.0); MONOCYTES # (AUTO) 0.8 10^3/uL (0.0-1.0); MONOCYTES % (AUTO) 7.7 %; NEUTROPHILS # (AUTO) 6.8 10^3/uL (1.5-6.6); NEUTROPHILS % (AUTO) 62.8 %; PLT - PLATELET COUNT 150 10^3/uL (130-450); RED BLOOD COUNT 3.45 10^6/uL (4.20-5.40); RED CELL DISTRIBUTION WIDTH 18.5 % (12.0-15.0); WHITE BLOOD COUNT 10.8 x10^3/uL (4.8-10.8)
[2023-01-30 08:33] LABS: MAGNESIUM 1.2 mg/dL (1.7-2.3)
[2023-01-30] MEDS ORDERED: ALBUTEROL NEB 2.5 MG/3 ML INH STA ×2 (08:40→11:06)
[2023-01-30] MEDS ORDERED: MAGNESIUM SULFATE 2 GRAM 2 GM/50 ML BAG IV ONE (08:40)
[2023-01-30 09:07] LABS: ALBUMIN 3.7 g/dL (3.2-5.5); ALBUMIN/GLOBULIN RATIO 1.4 (1.0-2.2); BILIRUBIN,TOTAL 0.4 mg/dL (0.2-1.0); CALCIUM 9.4 mg/dL (8.5-10.3); CREATININE 3.4 mg/dL (0.4-1.0); POTASSIUM 3.3 mmol/L (3.5-5.0); TOTAL PROTEIN 6.4 g/dL (6.7-8.2)
[2023-01-30 09:15] LABS: B. PARAPERTUSSIS- RESP PCR PAN NOT DETECTED; B. PERTUSSIS- RESP PCR PANEL NOT DETECTED; C. PNEUMONIAE- RESP PCR PANEL NOT DETECTED; CORONAVIRUS 229E-RESP PCR NOT DETECTED; CORONAVIRUS HKU1-RESP PCR NOT DETECTED; CORONAVIRUS NL63-RESP PCR NOT DETECTED; CORONAVIRUS OC43-RESP PCR NOT DETECTED; HUMAN METAPNEUMOVIRUS NOT DETECTED; INFLUENZA A- RESP PCR PANEL NOT DETECTED; INFLUENZA B - RESP PCR PANEL NOT DETECTED; M. PNEUMONIAE- RESP PCR PANEL NOT DETECTED; PARAINFLUENZA VIRUS 1 NOT DETECTED; PARAINFLUENZA VIRUS 2 NOT DETECTED; PARAINFLUENZA VIRUS 3 NOT DETECTED; PARAINFLUENZA VIRUS 4 NOT DETECTED; RHINOVIRUS/ENTEROVIRUS NOT DETECTED; RSV- RESP PCR PANEL NOT DETECTED; SARS-CoV-2 -RESP PCR PANEL NOT DETECTED
[2023-01-30] MEDS ORDERED: ENOXAPARIN 100 MG/ML SYRINGE SUBQ STA (09:15)
--- NOTE | 2023-01-30 09:15 | XRAY Report ---
PROCEDURE: Chest 1 View X-Ray INDICATIONS: dyspnea TECHNIQUE: One view of the chest was acquired. COMPARISON: None. FINDINGS: Surgical changes and devices: None. Lungs and pleura: No pleural effusions or pneumothorax. Mild increased pulmonary vascularity. Mediastinum: Mediastinal contours appear normal. Heart size is mildly enlarged. Bones and chest wall: No suspicious bony lesions. Overlying soft tissues appear unremarkable. IMPRESSION: Mild appearance of increased vascularity suggestive of edema Reviewed by: Sally Rodriguez MD on 01/30/2023 9:13 AM PDT Approved by: Sally Rodriguez MD on 01/30/2023 9:13 AM PDT Station ID: [id number]
[2023-01-30] MEDS ORDERED: SODIUM CHLORIDE 0.9% 1,000 ML IV STA (09:54)
[2023-01-30] MEDS ORDERED: DEXAMETHASONE 10 MG/ML VIAL IVP STA (11:06)
--- NOTE | 2023-01-30 11:36 | Ultrasound Report ---
PROCEDURE: Duplex Ext Veins Bilateral INDICATIONS: Dave Bentley MD TECHNIQUE: Real-time imaging, as well as color and pulse Doppler interrogation, were performed of the deep veins of both legs from the inguinal ligament to the popliteal fossa. COMPARISON: None FINDINGS: The deep veins are normally compressible, and free of intraluminal thrombus. Color and pu lse Doppler demonstrate normal phasic intravascular flow. There is normal augmentation response to d istal compression maneuver. Tovar's cyst is present measuring 3.7 cm. IMPRESSION: No deep venous thrombosis. Tovar's cyst. Reviewed by: Sally Rodriguez MD on 01/30/2023 11:35 AM PDT Approved by: Sally Rodriguez MD on 01/30/2023 11:35 AM PDT Station ID: [id number]
[2023-01-30] MEDS ORDERED: SODIUM CHLORIDE FLUSH 0.9% 10 ML SYRINGE IVP PRN (13:01)
[2023-01-30] MEDS ORDERED: ONDANSETRON ODT 4 MG TABLET TL PRN (13:01)
[2023-01-30] MEDS ORDERED: oxyCODONE 5 MG TABLET PO PRN (13:01)
[2023-01-30] MEDS ORDERED: ONDANSETRON 4 MG/2 ML VIAL IVP PRN (13:01)
[2023-01-30] MEDS ORDERED: CYCLOBENZAPRINE 10 MG TABLET PO PRN (13:03)
[2023-01-30] MEDS ORDERED: DICLOFENAC SODIUM DR 75 MG TABLET PO PRN (13:03)
[2023-01-30] MEDS ORDERED: ALBUTEROL NEB 2.5 MG/3 ML INH PRN (13:04)
--- NOTE | 2023-01-30 14:05 | HISTORY & PHYSICAL EXAMINATION ---
Chief Complaint - Chief Complaint Chief Complaint: Sudden onset shortness of breath and wheezing and a known RAD patient History of Present Illness - Admitted From Admitted From:: home - [facility] History obtained from: Dr. Bentley Exam Limitations: none - History of Present Illness HPI Comment/Other: This is a 67-year-old female who was just recently [facility] after a hospital stay dated January 05 through January 14. That hospital stay was for sepsis from a UTI. She had a metabolic encephalopathy, was found down, and required IV antibiotics and pressors for short time. She was found to be deconditioned due to the nature of her illness and sent to a rehab facility. She was just discharged this last week and has been home. She does have a history of reactive airways disease. She has been seen in the emergency room a few times over the last 10 years. But she has never been intubated and never hospitalized. Her medication is out of [id number] antihistamines, and a rescue inhaler. She is not on a LABA nor has she been ever on prolonged steroids. With this current exacerbation she states that there is no antecedent illness. There is no fever, chills, sore throat or indications of a URI. There is no phlegm production. She had an abrupt onset of wheezing on FridayJanuary 25 when she was still in the SNF. It woke her up in the middle of the night. Before that episode, she had not needed to use an inhaler at all the entire time she was there. They gave her some nebulizers and she was fine and she went home on Friday. The . But prior to the wheezing, she had bilateral leg edema for the last week or so. She does not have a history of heart disease. An echocardiogram done with her sepsis admission (associated with syncope) had normal ventricular ejection fraction, and no valvular heart disease. She was seen by home health nurse yesterday. No wheezing then. Was complaining of the edema. She had had some diarrhea the day before yesterday and had 3 liquid bowel movements that day. Then yesterday she had 5 liquid bowel movements. Today she has not had any. The home health nurse noted that her blood pressure was 84 systolic and 1 arm, and 98 systolic and another arm. While she was at t he retirement her blood pressure was normal and she knows that it was over 120 there. The only other complaint that she has is that of a headache. Its intermittent. Almost daily. Its been ongoing for weeks now. It is a new problem. She has no history of migraines. No photophobia. That will be abrupt in onset, and very uncomfortable. Sometimes to Tylenol takes it away, sometimes it does not. There is no antecedent fall or blow to the head. In the emergency room temperature was 36.6. Heart rate 99. Blood pressure 123/100. Respirations 34 and she was 74% on room air. After nebulizers, high flow nasal cannula oxygen she was satting 100% on 4 L. Respiratory rate had come down to 20. However she still wheezing. Chest x-ray has mild increased vascularity suggestive of edema. Venous duplex was done and there are no DVTs. Her BMP shows mild hyponatremia at 133, a low potassium at 3.3. Her baseline creatinine is 0.9 and she is 3.4. She did the same thing with her sepsis ad mission where she was admitted at 3.3 and was 0.9 by the time of discharge. Glucose is 125. Magnesium is low at 1.2. Lactic acid is 0.8. White cell count is normal at 10.8. Hemoglobin with chronic anemia of 9.4 and MCV of 87. The emergency room provider and I discussed the case. We both feel that she does not have any indications of congestive heart failure but more exacerbation of reactive airways disease. As such I am placing her in observation status to see if she improves with continue nebulizers, and pulse dose steroids. 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 Mom in her 70s of complications of Parkinson's and renal failure. 2 siblings have . 1 of cancer, and the other one she was not close to and does not know what her sister of. Her remaining siblings do have high blood pressure, diabetes, thyroid, heart disease. 4 children. 1 in an accident at the age of 17. 1 daughter has problems with alcoholism is in a 1 year rehab facility. Living arrangement: At home Living Situation: Alone Social History Notes: Never smoked. Does not drink. Has no history of alcohol abuse and says "1 alcoholic in the family is enough". She has been for decades. She said she was from him longer than she was to him. On Social Security disability for decades now because of back pain and hip pain. No history of recreational substance abuse. - Substance History Use: Uses substance without health or social issues: NONE - POLST Patient has POLST: No POLST Status: DNR (Daughter is in the room when mom says she wants to be DNR, DNI) Meds/Allgy - Home Medications Home Medications: Ambulatory Orders Medication Instructions Recorded Confirmed Albuterol Sulfate [Proair 1 puffs INH Q4H PRN 11/09/15 01/30/23 Respiclick] Atorvastatin Calcium [Lipitor] 80 mg PO QPM 01/06/23 01/30/23 Cyclobenzaprine [Flexeril] 10 mg PO TID PRN 01/06/23 01/30/[address] [Voltaren] 75 mg PO BID PRN 01/06/23 01/30/23 Metoprolol Succinate [Toprol Xl] 25 mg PO DAILY 01/06/23 01/30/23 Pregabalin [Lyrica] 150 mg PO BID 01/06/23 01/30/23 lisinopriL [Lisinopril] 10 mg PO QPM 01/06/23 01/30/23 Amitriptyline [Elavil] 10 mg PO HS #30 tablet 01/14/23 01/30/23 amLODIPine [Norvasc] 10 mg PO DAILY #30 tab 01/14/23 01/30/23 Acetaminophen [Aphen] 1 tab PO BID PRN 01/30/23 01/30/23 oxyBUTYnin chloride [Oxybutynin 15 mg PO DAILY 01/30/23 01/30/23 Chloride ER] - Allergies Allergies/Adverse Reactions: Allergies Allergy/AdvReac Type Severity Reaction Status Date / Time morphine Allergy Severe Rash Verified 01/30/23 08:01 Penicillins Allergy Intermediate Rash Verified 01/30/23 08:01 Review of Systems - Constitutional Constitutional: denies: Fatigue, Fever, Chills, Malaise, Weakness, Poor appetite - Eyes Eyes: denies: Pain, Irritation, Amaurosis, Blurred vision, Vision loss - Ears, Nose & Throat Ears, Nose & Throat: reports: Hearing loss, Nasal congestion. denies: Hearing aids, Nasal discharge, Nasal obstruction, Sore throat, Hoarseness - Cardiovascular Cariovascular: reports: Edema, Exertional dyspnea, Decr. exercise tolerance. denies: Irregular heart rate, Palpitations, Chest pain - Respiratory Respiratory: reports: SOB with exertion. denies: Cough, Sputum production, Wh eezing, Snoring, Hemoptysis, Orthopnea, SOB at rest - Gastrointestinal Gastrointestinal: reports: Diarrhea. denies: Abdominal pain, Abdominal distention, Constipation - Genitourinary Genitourinary: reports: Incontinence. denies: Dysuria, Frequency - Musculoskeletal Musculoskeletal: reports: Back pain, Muscle aches, Stiffness, Joint pain - Integumentary Integumentary: denies: Rash, Pruritis, Lesions, Dryness - Neurological Neurological: reports: Headache. denies: General weakness, Focal weakness, D izziness, Memory problems, Pre-existing deficit - Psychiatric Psychiatric: denies: Depression, Anxiety, Suicidal - Endocrine Endocrine: denies: Polyuria, Polydypsia, Polyphagia - Hematologic/Lymphatic Hematologic/Lymphatic: denies: Anemia, Bruising, Petechiae Prior Level of Functionality: able to complete ADLs, lives alone. It is notable that her first admission was right after her daughter went into rehab. And now readmitted again after short time. Prior to that patient has not been admitted while her daughter was living with her. Current daughter in the room states that mom is just not taking care of her self Exam - Vital Signs Reviewed Vital Signs: Yes Vital Signs: Vital Signs x48h Temp Pulse Pulse Resp BP BP Pulse Ox 01/30/23 13:34 36.9 C 98 20 145/125 H 96 01/30/23 13:00 95 16 123/66 99 01/30/23 12:30 95 15 112/68 100 01/30/23 11:59 94 20 116/51 L 100 01/30/23 11:30 95 22 116/51 L 100 01/30/23 11:16 94 16 01/30/23 11:00 94 18 116/51 L 96 01/30/23 10:30 88 20 114/57 L 99 01/30/23 10:00 36 C L 94 15 107/57 L 94 01/30/23 09:30 100 01/30/23 09:17 96 20 104/46 L 100 01/30/23 08:52 96 20 01/30/23 08:47 96 20 107/44 L 95 01/30/23 08:17 99 20 106/93 H 100 01/30/23 08:10 95 24 01/30/23 08:01 74 L 01/30/23 07:56 36.6 C 99 34 H 123/100 H 74 L O2 Flow Rate 01/30/23 13:34 01/30/23 13:00 4 01/30/23 12:30 4 01/30/23 11:59 01/30/23 11:30 4 01/30/23 11:16 3 01/30/23 11:00 4 01/30/23 10:30 4 01/30/23 10:00 4 01/30/23 09:30 01/30/23 09:17 4 01/30/23 08:52 4 01/30/23 08:47 5 01/30/23 08:17 4 01/30/23 08:10 15 01/30/23 08:01 01/30/23 07:56 - Physical Exam General Appearance: positive: Alert, Other (Short statured, morbidly obese, 1 or 2 deep bronchitic coughs. Very interesting choreoathetoid head movement that is nonstop. Arm movement is nonstop. She says she started doing this a year or so ago and does not know why she does it) Eyes Bilateral: positive: PERRL, EOMI ENT: positive: No signs of dehydration, Other (Loss of teeth) Neck: negative: Stiff neck Respiratory: positive: No respiratory distress, Other (Now that she is on MedSurg, she is easily tachypneic with getting up out of the bed to get to the bathroom and back. It takes her about 5 minutes to recover. But wheezing has resolved and O2 sats are now normal on room air). negative: Wheezes, Rales, Rhonchi Cardiovascular: positive: Regular rate & rhythm, Tachycardia (When she got out of bed she became tachycardic to the 110s. After getting back in bed pulse dropped into the 90s.) Abdomen: positive: Non-tender, Nml bowel sounds, Other (Huge, obese abdominal pannus. Really cannot assess for organomegaly.). negative: Tenderness Skin: positive: Warm, Dry, Pallor Extremities: positive: Full ROM, Pedal edema Neurologic/Psychiatric: positive: Oriented x3, CN's nml (2-12). negative: Motor nml (No loss of focal strength. It is the movement disorder that is interesting.) Conclusion/Plan - Problem List (1) Acute respiratory failure with hypoxia Conclusion/Plan: Due to exacerbation of reactive airways disease. In the ER she did respond to nebulizers and oxygen in that her O2 sat started in the 70s on room air and improved to the low 90s with oxygen. But she is still actively wheezing, not at baseline. As such I will be placing her in observation status to treat her with nebs and steroids. (2) Reactive airway disease with acute exacerbation Conclusion/Plan: Already improving in the short-term she has been here. The ER doctor had given her nebulizer treatments, I added steroids. No evidence of URI, CHF. In coming home she does have a dog that lives with her. But she is live with that doctor 5 years so she does not think there is any allergy problems. She does live in a small trailer, a little bit crowded and probably not well clean. Plan: Observation status. I will call in a prescription for nebulized solutions to [facility] in [place]. She says nebulize solution works much better than the handheld inhaler she has Medrol Dosepak at home Now that she is much improved, most likely discharge tomorrow Add singular 10 mg at night Qualifiers: Asthma severity: severe (3) Headache Conclusion/Plan: Is been ongoing for several months now. No history of traumatic brain injury. Does have photophobia but not unilateral. Is more all over her head. Plan: Check CT of head without contrast tomorrow morning Qualifiers: Headache type: new daily persistent Qualified Code(s): G44.52 - New daily persistent headache (NDPH) (4) Acute kidney injury Conclusion/Plan: My suspicion is this patient has had 2 problems. One is hypotension that the home health nurse noted yesterday. And the other is diarrhea with dehydration. No diarrhea today so I am will not be ordering stool studies. I have initially ordered only 1 L of IV fluids. But I will give her 2 L. I expect she will improve her creatinine since her blood pressure is up, and she is getting hydrated. I plan on rechecking BMP tomorrow. I have encouraged her to push p.o. fluids in the form of water (5) Hypokalemia Conclusion/Plan: 20 mEq p.o. now, and 20 mEq p.o. tomorrow morning. Recheck potassium before discharge (6) Hypertension Conclusion/Plan: At home she takes lisinopril 10 mg daily and metoprolol XL 25 mg daily. Norvasc 5 mg daily. I have resumed her usual home meds since her blood pressure is coming up. Diastolic was as high as 125 later this afternoon. But this woman has very large arms, and I am going to be asking nursing to do manual blood pressures. Qualifiers: Hypertension type: primary hypertension Qualified Code(s): I10 - Essential (primary) hypertension (7) Diarrhea Conclusion/Plan: She says that she did not have any diarrhea in the prison facility. It started the first day she got home. 3 bowel movements that day, and then 5 bow el movements yesterday. None today. There is no blood. No fever. No tenesmus. If she has further diarrhea I will order stool studies Qualifiers: Diarrhea type: unspecified type Qualified Code(s): R19.7 - Diarrhea, unspecified - Lab Results Lab results reviewed: Yes Fish Bones: 01/30/23 08:08 01/30/23 08:08 - Diagnostic Imaging Results Diagnostic Imaging Results: positive: Final report reviewed (Venous duplex study of her legs without any DVT Chest x-ray without any acute cardiopulmonary infiltrate) Core Measures - Anticipated LOS I expect patient to be DC'd or transferred within 96 hours.: Yes - DVT/VTE - Prophylaxis VTE/DVT Prophylaxis med ordered at admit?: Yes
--- NOTE | 2023-01-30 14:51 | PHARMACY PROGRESS NOTE ---
- Best Possible Medication History Admit Date and Time: 01/30/23 1301 Processed by: Pharmacy Medication History completed: Yes Patient Interview: Completed Secondary Source(s): Pharmacy records As the person ultimately responsible for medication therapy, providers are able to order a medication from an existing home medication list in [facility] via the "Reconcile Routine" prior to Confirmation of that medication by credit support counselor. Such practice is discouraged except when the physician, in their clinical judgment, deems that a medical need exists for a medication without regard to previous use.
[2023-01-30] MEDS: SODIUM CHLORIDE 0.9% 1,000 ML IV SCH ×2 (15:08→23:56)
[2023-01-30] MEDS: AMITRIPTYLINE 10 MG TABLET PO SCH ×2 (15:08→21:07)
[2023-01-30] MEDS: methylPREDNISolone SUCCINATE 40 MG/ML VIAL IVP SCH ×2 (15:08→22:19)
[2023-01-30] MEDS: ACETAMINOPHEN 325 MG TABLET PO PRN ×2 (15:09→23:55)
[2023-01-30] MEDS: IPRATROPIUM/ALBUTEROL 3 ML NEB INH SCH ×2 (15:31→18:58)
[2023-01-30] MEDS: SODIUM CHLORIDE FLUSH 0.9% 10 ML SYRINGE IVP SCH (16:03)
[2023-01-30] MEDS ORDERED: ZINC OXIDE 20% OINT 30 GM TUBE TOP PRN (17:20)
[2023-01-30] MEDS: POTASSIUM CHLORIDE 10 MEQ CAPSULE PO SCH (18:50)
[2023-01-30] MEDS: PREGABALIN 100 MG CAPSULE PO SCH (21:07)
[2023-01-30] MEDS: lisinopriL 5 MG TABLET PO SCH (21:07)
[2023-01-30] MEDS: MONTELUKAST 10 MG TABLET PO SCH (21:07)
[2023-01-30] MEDS: PREGABALIN 25 MG CAPSULE PO SCH (21:07)
[2023-01-30] MEDS: ATORVASTATIN 40 MG TABLET PO SCH (21:07)
[2023-01-31] MEDS: SODIUM CHLORIDE FLUSH 0.9% 10 ML SYRINGE IVP SCH ×4 (00:13→23:55)
[2023-01-31 05:18] LABS: BASOPHILS % (AUTO) 0.1 %; HCT - HEMATOCRIT 27.7 % (37.0-47.0); HGB - HEMOGLOBIN 8.6 g/dL (12.0-16.0); LYMPHOCYTES # (AUTO) 0.8 10^3/uL (1.5-3.5); LYMPHOCYTES % (AUTO) 11.2 %; MEAN CORPUSCULAR VOLUME 87.1 fL (81.0-99.0); MEAN PLATELET VOLUME 12.6 fL (7.9-10.8); MONOCYTES # (AUTO) 0.1 10^3/uL (0.0-1.0); MONOCYTES % (AUTO) 1.1 %; NEUTROPHILS # (AUTO) 6.2 10^3/uL (1.5-6.6); PLT - PLATELET COUNT 119 10^3/uL (130-450); RED BLOOD COUNT 3.18 10^6/uL (4.20-5.40); RED CELL DISTRIBUTION WIDTH 18.6 % (12.0-15.0); WHITE BLOOD COUNT 7.1 x10^3/uL (4.8-10.8)
[2023-01-31 05:32] LABS: CALCIUM 9.3 mg/dL (8.5-10.3); CREATININE 1.7 mg/dL (0.6-1.3); POTASSIUM 4.3 mmol/L (3.5-4.5)
[2023-01-31] MEDS: methylPREDNISolone SUCCINATE 40 MG/ML VIAL IVP SCH ×3 (06:05→21:36)
[2023-01-31] MEDS: IPRATROPIUM/ALBUTEROL 3 ML NEB INH SCH ×4 (07:36→19:25)
[2023-01-31] MEDS: ENOXAPARIN 40 MG/0.4 ML SYRINGE SUBQ SCH (08:02)
[2023-01-31] MEDS: POTASSIUM CHLORIDE 10 MEQ CAPSULE PO SCH ×2 (08:03→16:04)
[2023-01-31] MEDS: PREGABALIN 100 MG CAPSULE PO SCH ×2 (08:03→20:20)
[2023-01-31] MEDS: METOPROLOL SUCCINATE 25 MG TABLET PO SCH (08:03)
[2023-01-31] MEDS: SOLIFENACIN SUCCINATE 5 MG TABLET PO SCH (08:03)
[2023-01-31] MEDS: amLODIPine 5 MG TABLET PO SCH (08:03)
[2023-01-31] MEDS: PREGABALIN 25 MG CAPSULE PO SCH ×2 (08:03→20:20)
[2023-01-31] MEDS ORDERED: BENZOCAINE/MENTHOL LOZENGE MM PRN (09:53)
--- NOTE | 2023-01-31 10:43 | CT Report ---
PROCEDURE: HEAD WO INDICATIONS: new daily headache for weeks TECHNIQUE: Noncontrast 4.5 mm thick angled axial sections acquired from the foramen magnum to the vertex. For r adiation dose reduction, the following was used: automated exposure control, adjustment of mA and/or kV according to patient size. COMPARISON: 01/05/2023 FINDINGS: Image quality: Excellent. CSF spaces: Basal cisterns are patent. No extra-axial fluid collections. Ventricles are normal in size and shape. Brain: No midline shift. No intracranial masses or hemorrhage. Hill-white matter interface is norm al. Skull and face: Calvarium and visualized facial bones are intact, without suspicious lesions. Sinuses: Visualized sinuses and mastoids are clear. IMPRESSION: Noncontrast head CT within normal limits for age, without a cause of daily headache identified. No significant change from the recent prior. No intracranial hemorrhage is seen. The limits of noncontrast CT, no findings of masses or mass effect can be seen. No hydrocephalus. Reviewed by: Danny Holder MD on 01/31/2023 9:42 AM IMN Approved by: Danny Holder MD on 01/31/2023 9:42 AM MIN Station ID: [id number]
--- NOTE | 2023-01-31 12:07 | PROVIDER PROGRESS NOTE ---
Progress Note January 31, 2023 12 PM Patient seen this morning with her son at the bedside. He is very very anxious. He feels there is something terribly wrong with mom that we have not discovered. He is very forceful and states he wants another echocardiogram done under because she has water retention in her legs and she is short of breath. I have explained to him that she had an echo done less than a month ago. That echo was normal. Her edema is minimal. And at this time I think her shortness of breath is due to asthma. I explained to him our work-up of the chest x-ray. That we did blood work for congestive heart failure including a BNP which is very low. So I really did not want to do another echocardiogram and he was very unhappy with that. He and his mother also explained to me that they are at odds with his sister, her daughter. She is an employee here at our hospital and was in the room with mom yesterday when mom was admitted. Mom states that she is uncomfortable with her daughter being in the room. She no longer wants any of her case discussed in front of her daughter. That her son is the DPOA. So we have changed the patient's status that no one is to discuss her case with any family member other than her son. Active Medications Acetaminophen (Acetaminophen 325 Mg Tablet) 650 mg PO Q4HR PRN PRN Reason: Pain 1 to 4, or Fever Last Admin: 01/30/23 23:55 Dose: 650 mg Albuterol (Albuterol Neb 2.5 Mg/3 Ml) 2.5 mg INH RTQ4H PRN PRN Reason: Wheezing Last Admin: 01/31/23 01:26 Dose: 2.5 mg Albuterol/Ipratropium (Ipratropium/Albuterol 3 Ml Neb) 3 ml INH RTQID [facility] Last Admin: 01/31/23 07:36 Dose: 3 ml Amitriptyline HCl (Amitriptyline 10 Mg Tablet) 10 mg PO HS [facility] Last Admin: 01/30/23 21:07 Dose: 10 mg Amlodipine Besylate (Amlodipine 5 Mg Tablet) 10 mg PO DAILY [facility] Last Admin: 01/31/23 08:03 Dose: 10 mg Atorvastatin Calcium (Atorvastatin 40 Mg Tablet) 80 mg PO QPM [facility] Last Admin: 01/30/23 21:07 Dose: 80 mg Cyclobenzaprine HCl (Cyclobenzaprine 10 Mg Tablet) 10 mg PO TID PRN PRN Reason: Spasms Last Admin: 01/30/23 23:55 Dose: 10 mg Diclofenac Sodium (Diclofenac Sodium Dr 75 Mg Tablet) 75 mg PO BID PRN PRN Reason: PAIN 5-7 Enoxaparin Sodium (Enoxaparin 40 Mg/0.4 Ml Syringe) 40 mg SUBQ DAILY [facility] Last Admin: 01/31/23 08:02 Dose: 40 mg Lisinopril (Lisinopril 5 Mg Tablet) 10 mg PO QPM [facility] Last Admin: 01/30/23 21:07 Dose: 10 mg Metoprolol Succinate (Metoprolol Succinate 25 Mg Tablet) 25 mg PO DAILY [facility] Last Admin: 01/31/23 08:03 Dose: 25 mg Montelukast Sodium (Montelukast 10 Mg Tablet) 10 mg PO QPM [facility] Last Admin: 01/30/23 21:07 Dose: 10 mg Multi-Ingredient Ointment (Zinc Oxide 20% Oint 30 Gm Tube) 1 applic TOP PRN PRN PRN Reason: Skin Care Last Admin: 01/30/23 19:48 Dose: 1 applic Ondansetron HCl (Ondansetron Odt 4 Mg Tablet) 4 mg TL Q6HR PRN PRN Reason: Nausea / Vomiting Ondansetron HCl (Ondansetron 4 Mg/2 Ml Vial) 4 mg IVP Q6HR PRN PRN Reason: Nausea / Vomiting Oxycodone HCl (Oxycodone 5 Mg Tablet) 5 mg PO Q4HR PRN PRN Reason: Pain 5 to 7 Potassium Chloride (Potassium Chloride 10 Meq Capsule) 20 meq PO BIDWM [facility] Last Admin: 01/31/23 08:03 Dose: 20 meq Pregabalin (Pregabalin 100 Mg Capsule) 100 mg PO BID [facility] Last Admin: 01/31/23 08:03 Dose: 100 mg Pregabalin (Pregabalin 25 Mg Capsule) 50 mg PO BID [facility] Last Admin: 01/31/23 08:03 Dose: 50 mg Sodium Chloride (Sodium Chloride Flush 0.9% 10 Ml Syringe) 10 ml IVP PRN PRN PRN Reason: NEEDED PER PROVIDER ORDERS Sodium Chloride (Sodium Chloride Flush 0.9% 10 Ml Syringe) 10 ml IVP 0100,0900,1700 [facility] Last Admin: 01/31/23 08:03 Dose: Not Given Solifenacin (Solifenacin Succinate 5 Mg Tablet) 10 mg PO DAILY [facility] Last Admin: 01/31/23 08:03 Dose: 10 mg Throat Lozenges (Benzocaine/Menthol Lozenge) 1 lozenge MM Q2HR PRN PRN Reason: Throat pain Albuterol Sulfate [Proair Respiclick] 1 puffs INH Q4H PRN 11/09/15 Atorvastatin Calcium [Lipitor] 80 mg PO QPM 01/06/23 Cyclobenzaprine [Flexeril] 10 mg PO TID PRN 01/06/[address] [Voltaren] 75 mg PO BID PRN 01/06/23 Metoprolol Succinate [Toprol Xl] 25 mg PO DAILY 01/06/23 Pregabalin [Lyrica] 150 mg PO BID 01/06/23 lisinopriL [Lisinopril] 10 mg PO QPM 01/06/23 Acetaminophen [Aphen] 1 tab PO BID PRN 01/30/23 oxyBUTYnin chloride [Oxybutynin Chloride ER] 15 mg PO DAILY 01/30/23 Exam: Temperature 36.4. Heart rate is 88. Blood pressure is 131/56. Respirations 16. She is on 2 L nasal cannula for comfort. On room air she is 93%. She has just come back from CT scanner. CT of the head is been requested because of a headache. Headache has been for weeks now. She is tachypneic, tachycardic, uncomfortable with just exertion of being transferred from the [facility] to her bed. She is wheezing. Much more comfortable right now at this moment than she was yesterday evening when I examined her. Regular rate and rhythm Abdomen is obese, very large pannus. But normal bowel sounds, nontender. Extremities have only trace edema. Alert, oriented, normal speech patterns. No focal deficits. Lab: Sodium 132. Potassium 4.3. BUN 33, creatinine 1.7. On admission her BUN was 41, creatinine 3.4. Glucose 216. Lactic acid 0.8. CBC has a normal white cell count of 7.1. Hemoglobin shows chronic stable anemia of 8.6. When she was in the hospital in December she was 11.2 and 10.2. She has been anemic most of 2022 on her lab work. The last time she was normal was in 2019. Radiology: Head CT is without contrast. Within normal limits for age. No change from prior head CT January 05, 2023. No hemorrhage. No hydrocephalus. Conclusion/Plan - Problem List (1) Acute respiratory failure with hypoxia Conclusion/Plan: Due to exacerbation of reactive airways disease. In the ER, she did respond to nebulizers and oxygen in that her O2 sat started in the 70s on room air and improved to the low 90s with oxygen. But she was still actively wheezing, not at baseline. Dr. Bentley and I did discuss the possibility of a PE and thus why venous Dopplers were done and negative. We could not do a CT pulmonary angiogram because of her creatinine. I placed her in observation status to treat her with nebs and steroids.And assessing her several hours after the ER admissio n, she was much better. Off oxygen and 93% on room air. She had a deep bronchitic cough once but was very comfortable. This morning nursing reports that deep bronchitic cough is much more often. Off and on all morning long. She is not tachypneic and wheezing again. She is observation status. She is tearful and would like to go home. Plan: She is to remain in observation status. I explained to her that I really want us to keep her until her wheezing is better and she is able to get in and out of a chair without respiratory distress. She lives alone in her own home and I want her to be safe. She reluctantly agrees to stay 1 more night. I am continuing the Singulair at night. Albuterol neb every 4 hours as needed, DuoNeb and a thick schedule IV times a day, and I will add Solu-Medrol again. I had ordered 40 mg IV push for 3 doses only and she has completed those With her last dose at 6 AM today. (2) Reactive airway disease with acute exacerbation Conclusion/Plan: Had improved by last night, The ER doctor had given her nebulizer treatments, I added steroids. No evidence of URI, CHF. In coming home from the SNF, she does have a dog that lives with her. But she ihas lived with that dog for 5 years, so she does not think there is any allergy problems. She does live in a small trailer, a little bit crowded and probably not well clean. Son is very very concerned about all of this. Feels that there is a diagnosis that we have missed. I have gone over the work-up with him. And at this time I am not finding any other causes other than she may have obesity hypoventilation syndrome that is adding to this or obstructive sleep apnea. He says that he is not happy with my terminology when I described his mom as morbidly obese and I apologize. Yesterday evening I have already called in DuoNeb nebulized solution to [facility] in [place]. She has a machine at home and just needed a refill on the solutions. I also called in a prednisone Dosepak. I had preferred to use a Medrol Dosepak but it is not on her formulary. Plan: Observation status to continue. Hopefully can be discharged tomorrow. Qualifiers: Asthma severity: severe (3) Headache Conclusion/Plan: Is been ongoing for several months now. No history of traumatic brain injury. Does have photophobia but not unilateral. Is more all over her head.Repeat CT of head done. She had 1 in December when she was attended from sepsis. And she had another CT this morning. Both have normal signs of aging and no other findings.Headache is not present at this moment. Plan: Follow-up with PCP in the outpatient setting Qualifiers: Headache type: new daily persistent Qualified Code(s): G44.52 - New daily persistent headache (NDPH) (4) Acute kidney injury Conclusion/Plan: My suspicion is this patient has had 2 problems causing pre-renal failure. One is hypotension that the home health nurse noted yesterday. And the other is diarrhea with dehydration. No diarrhea On the day of admission, or today so I am will not be ordering stool studies. I initially ordered only 1 L of IV fluids. But I gave her 2 L instead and her creatinine has improved with nml BP and good hydration. BMP shows a creatinine that is responding to this. Most like she did last month. (5) Hypokalemia Conclusion/Plan: Due to diarrhea. 20 mEq p.o. last night, and 20 mEq p.o. this morning Potassium is normal this am. (6) Hypertension Conclusion/Plan: At home she takes lisinopril 10 mg daily and metoprolol XL 25 mg daily. Norvasc 5 mg daily. I have resumed her usual home meds since her blood pressure is coming up. Diastolic was as high as 125 later this afternoon. But this woman has very large arms, and I have asked nursing to do manual blood pressures. Qualifiers: Hypertension type: primary hypertension Qualified Code(s): I10 - Essential (primary) hypertension (7) Diarrhea Conclusion/Plan: She says that she did not have any diarrhea in the snf facility. It started the first day she got home. 3 bowel movements that day, and then 5 bowel movements the date after that. None 01/30 or today. There is no blood. No fever. No tenesmus. If she has further diarrhea I will order stool studies Qualifiers: Diarrhea type: unspecified type Qualified Code(s): R19.7 - Diarrhea, unspecified
[2023-01-31] MEDS: AMITRIPTYLINE 10 MG TABLET PO SCH (20:20)
[2023-01-31] MEDS: lisinopriL 5 MG TABLET PO SCH (20:20)
[2023-01-31] MEDS: MONTELUKAST 10 MG TABLET PO SCH (20:20)
[2023-01-31] MEDS: NYSTATIN CREAM 15 GM TUBE TOP SCH (20:21)
[2023-01-31] MEDS: ATORVASTATIN 40 MG TABLET PO SCH (20:21)
[2023-01-31] MEDS ORDERED: CALCIUM CARBONATE CHEW 500 MG TABLET PO PRN (21:14)
[2023-02-01] MEDS: methylPREDNISolone SUCCINATE 40 MG/ML VIAL IVP SCH (06:05)
[2023-02-01] MEDS ORDERED: PANTOPRAZOLE 40 MG TABLET PO SCH (07:00)
[2023-02-01] MEDS: IPRATROPIUM/ALBUTEROL 3 ML NEB INH SCH (07:20)
[2023-02-01 08:13] LABS: BASOPHILS % (AUTO) 0.1 %; EOSINOPHILS % (AUTO) 0.1 %; HCT - HEMATOCRIT 29.8 % (37.0-47.0); HGB - HEMOGLOBIN 9.2 g/dL (12.0-16.0); LYMPHOCYTES # (AUTO) 1.3 10^3/uL (1.5-3.5); LYMPHOCYTES % (AUTO) 11.6 %; MEAN CORPUSCULAR HEMOGLOBIN 27.3 pg (27.0-31.0); MEAN CORPUSCULAR HGB CONC 30.9 g/dL (32.0-36.0); MEAN CORPUSCULAR VOLUME 88.4 fL (81.0-99.0); MEAN PLATELET VOLUME 12.6 fL (7.9-10.8); MONOCYTES # (AUTO) 0.4 10^3/uL (0.0-1.0); MONOCYTES % (AUTO) 3.9 %; NEUTROPHILS # (AUTO) 9.4 10^3/uL (1.5-6.6); NEUTROPHILS % (AUTO) 83.1 %; NRBC ABSOLUTE COUNT (AUTO) 0.02 x10^3/uL; NUCLEATED RED BLOOD CELLS AUTO 0.2 /100WBC; PLT - PLATELET COUNT 148 10^3/uL (130-450); RED BLOOD COUNT 3.37 10^6/uL (4.20-5.40); RED CELL DISTRIBUTION WIDTH 19.9 % (12.0-15.0); WHITE BLOOD COUNT 11.3 x10^3/uL (4.8-10.8)
[2023-02-01 08:38] LABS: CALCIUM 10.4 mg/dL (8.5-10.3); CREATININE 1.3 mg/dL (0.6-1.3); POTASSIUM 5.2 mmol/L (3.5-4.5)
[2023-02-01] MEDS: amLODIPine 5 MG TABLET PO SCH (08:51)
[2023-02-01] MEDS: PREGABALIN 25 MG CAPSULE PO SCH (08:51)
[2023-02-01] MEDS: SOLIFENACIN SUCCINATE 5 MG TABLET PO SCH (08:52)
[2023-02-01] MEDS: PREGABALIN 100 MG CAPSULE PO SCH (08:52)
[2023-02-01] MEDS: METOPROLOL SUCCINATE 25 MG TABLET PO SCH (08:52)
[2023-02-01] MEDS: NYSTATIN CREAM 15 GM TUBE TOP SCH (08:53)
[2023-02-01] MEDS: ENOXAPARIN 40 MG/0.4 ML SYRINGE SUBQ SCH (08:53)
[2023-02-01] MEDS: SODIUM CHLORIDE FLUSH 0.9% 10 ML SYRINGE IVP SCH (08:54)
[2023-02-01] MEDS: POTASSIUM CHLORIDE 10 MEQ CAPSULE PO SCH (08:56)
--- NOTE | 2023-02-01 09:12 | Discharge Plan ---
Discharge Plan Problem Reviewed?: Yes Disposition: Home, Self Care Condition: Fair Prescriptions: Ipratropium/Albuterol [Duoneb] 3 ml INH Q6H #120 ml predniSONE [Prednisone 21-TAB dose pack] 10 mg PO UD #1 each Diet: Low Sodium Activity Restrictions: Activity as Tolerated Shower Restrictions: No Driving Restrictions: No Health Concerns: You have longstanding asthma. Is been part of your life for very long time. But you are rarely seen in the emergency room for this. Maybe once every 2 or 3 years. Your inhaler use is minimal. You had not used it most of the month you were in the prison. The night before you left the prison, you started having severe wheezing and you needed to start taking your inhaler. You were discharged and you continued needing your inhaler to the point that you were severely short of breath. You felt like the inhaler was not working. You were brought to the emergency room and had a severe, severe asthma attack with low oxygen. Your legs have been swollen for the last few days. We checked you out for heart attack and you were not having one. You were did not have pneumonia. You did not have congestive heart failure. We gave you nebulizers [id number], intravenous steroids. It took you 2 days but you are now off oxygen, you are not coughing, and he feels ready to go home. You were complaining of headaches for the last few weeks. A CAT scan was negative. There were no bleeding, tumors. You are also concerned because of leg edema and headache. The most common side effects of your blood pressure medicine, Norvasc, is leg edema and headache. Plan of Treatment: We are sending you home on nebulized solution. You said you have a nebulizer machine but do not have the solution so we called that into your pharmacy. We are also sending you home on a tapered dose of steroids Make sure you see your primary care provider, Brigida Thrasher. Ask Ms. thrasher if you need to go on a long acting bronchodilator. Right now I do not think you need to. But if you find that you are using your nebulizer solution more than once a day on a regular basis, you may be a candidate for the long-acting bronchodilator. She may also want to change her blood pressure medicine to see if the Norvasc is giving you your leg edema and headache. Care Goals: Since you have just returned from a prison stay for rehab, your main goal is to stay at home as long as possible. You really just want to take a break from all this medical stuff. Assessment: Patient is alert, oriented, self determining. She promises to follow through with seeing her nurse practitioner No Smoking: If you smoke, Please STOP! Call for help. Follow-up with: Maryjane Thrasher ARNP [Credentialed Staff Provider] -
--- NOTE | 2023-02-01 09:16 | DISCHARGE SUMMARY ---
"Discharge Summary Admit Date: 01/30/23 Discharge Date: 02/01/23 Discharging Provider: Harini Harkins MD Primary Care Provider: BEBETO Mcpherson Code Status: Attempt Resuscitation Condition at Discharge: Fair Discharge Disposition: 01 Home, Self Care - DIAGNOSES Discharge Diagnoses with Status of Each Condition: 1. Acute respiratory failure with hypoxia 2. Reactive airways disease with acute exacerbation 3. Headache (felt to be side effect of Norvasc) 4. Acute kidney injury Due to dehydration 5. Bilateral lower extremity edema (felt to be side effect of Norvasc) 6. Hypokalemia 7. Hypertension 8. Diarrhea - HPI History of Present Illness: This is a 67-year-old female who was just recently discharged from group home facility for physical rehab after a hospital stay dated January 05 through January 14. That hospital stay was for sepsis from a UTI. She had a metabolic encephalopathy, was found down, and required IV antibiotics and pressors for short time. She was found to be deconditioned due to the nature of her illness and sent to a rehab facility. She was just discharged this last week and has been home. She does have a history of reactive airways disease. She has been seen in the emergency room a few times over the last 10 years. But she has never been intubated and never hospitalized. Her medication is out of [id number] antihistamines, and a rescue inhaler. She is not on a LABA nor has she been ever on prolonged steroids. With this current exacerbation she states that there is no antecedent illness. There is no fever, chills, sore throat or indications of a URI. There is no phlegm production. She had an abrupt onset of wheezing on FridayJanuary 25 when she was still in the SNF. It woke her up in the middle of the night. Before that episode, she had not needed to use an inhaler at all the entire time she was there. They gave her some nebulizers and she was fine and she went home on Friday. The . But prior to the wheezing, she had bilateral leg edema for the last week or so. She does not have a history of heart disease. An echocardiogram done with her sepsis admission (associated with syncope) had normal ventricular ejection fraction, and no valvular heart disease. She was seen by home health nurse yesterday. No wheezing then. Was complaining of the edema. She had had some diarrhea the day before yesterday and had 3 liquid bowel movements that day. Then yesterday she had 5 liquid bowel movements. Today she has not had any. The home health nurse noted that her blood pressure was 84 systolic and 1 arm, and 98 systolic and another arm. [facility] her blood pressure was normal and she knows that it was over 1 20 there. The only other complaint that she has is that of a headache. Its intermittent. Almost daily. Its been ongoing for weeks now. It is a new problem. She has no history of migraines. No photophobia. That will be abrupt in onset, and very uncomfortable. Sometimes to Tylenol takes it away, sometimes it does not. There is no antecedent fall or blow to the head. In the emergency room temperature was 36.6. Heart rate 99. Blood pressure 123/100. Respirations 34 and she was 74% on room air. After nebulizers, high flow nasal cannula oxygen she was satting 100% on 4 L. Respiratory rate had come down to 20. However she still wheezing. Chest x-ray has mild increased vascularity suggestive of edema. Venous duplex was done and there are no DVTs. Her BMP shows mild hyponatremia at 133, a low potassium at 3.3. Her baseline creatinine is 0.9 and she is 3.4. She did the same thing with her sepsis admission where she was admitted at 3.3 and was 0.9 by the time of discharge. G lucose is 125. Magnesium is low at 1.2. Lactic acid is 0.8. White cell count is normal at 10.8. Hemoglobin with chronic anemia of 9.4 and MCV of 87.BNP was 83.She did have an echo with her stay for sepsis last month and her echocardiogram was normal. The emergency room provider and I discussed the case. We both feel that she does not have any indications of congestive heart failure but more exacerbation of reactive airways disease. As such I am placing her in observation status to see if she improves with continue nebulizers, and pulse dose steroids. - CONSULTS | PROCEDURES Procedures: Chest x-ray has a mild appearance of increased vascularity suggestive of edema Venous duplex is without DVT Head CT has chronic microvascular changes of aging. No intracranial hemorrhage. Compared to January 05, [address] there are no changes. - HOSPITAL COURSE Hospital Course: CongestiveWe did entertain the idea that she had heart failure. But in the view of a recently normal echo, and a BNP that was 83, I think that the chest x-ray reading of possible vascular congestion had more to do with technique than true CHF. By the evening of the first day, when she was on MedSurg, she had improved quite a bit. Still on 2 L but no wheezing no tachypnea no respiratory distress. The next morning she was in severe respiratory distress again. Needing more oxygen, wheezing, tearful. There is a dynamic going on between she and her son and her daughter that was really upsetting to her. As such I did not discharge her and kept her in observation status. On the day of discharge she is comfortable, alert, cheerful. Feels like she is back to baseline would like to go home. She only uses her inhaler rarely. For the [facility] she [facility] she said she hardly ever used it. She only started using it the night before discharge. When she is at home, and she is not sick, she also rarely uses inhaler. I explained to her that sometimes people need addition of a longer acting bronchodilator. At this time I am not can to be doing that for her. But to keep a diary of how often she uses her inhaler and take it with her to her visit to her primary care provider office. Her primary care provider can then administrative law judge whether this patient needs a LABA or a long inhaled steroid. She will be discharged on DuoNeb solution for nebulizer. She says she has a machine at home but she has not used nebulized solution for very long time. She finds it when she is upset or short of breath she really cannot use her handheld inhaler effectively. I am also sending her home on tapered prednisone. I did prefer Medrol Dosepak but it is a level 2 or not covered on her insurance formulary. During her stay, she complained of a daily headache that is new for the last few weeks. She was also worried about her leg edema. CT of the head was done and negative. She is on Norvasc 10 mg a day. The most common side effects of Norvasc are headache and edema. I asked her to mention this to her primary care provider to see if maybe a different blood pressure medication could be used.I do not feel she is having congestive heart failure. At discharge she is an alert oriented short morbidly obese female. Oriented. The chorioathetoid head movement is much calmer today than admission. I am wondering if her primary care provider should send her for evaluation of a possible early movement disorder. Temperature is 36.6. Heart rate is 88. Blood pressure 147/61. Respirations 22 on 95% room air. Neck is supple. Completely clear lungs right now. No increased respiratory effort, no wheezing, comfortable laying at 45 degrees. Irregular rate and rhythm. And abdomen that is obese, soft, protuberant with normal bowel sounds. Nontender to palpation. Extremities have absolutely no edema. She is discharged in stable condition. This document was made in part using voice recognition software. While efforts are made to proofread this document, sound alike and grammatical errors may occur. - ALLERGIES Allergies/Adverse Reactions: Allergies Allergy/AdvReac Type Severity Reaction Status Date / Time morphine Allergy Severe Rash Verified 01/30/23 08:01 Penicillins Allergy Intermediate Rash Verified 01/30/23 08:01 - MEDICATIONS Home Medications: Ambulatory Orders Medication Instructions Recorded Confirmed Albuterol Sulfate [Proair 1 puffs INH Q4H PRN 11/09/15 01/30/23 Respiclick] Atorvastatin Calcium [Lipitor] 80 mg PO QPM 01/06/23 01/30/23 Cyclobenzaprine [Flexeril] 10 mg PO TID PRN 01/06/23 01/30/[address] [Voltaren] 75 mg PO BID PRN 01/06/23 01/30/23 Metoprolol Succinate [Toprol Xl] 25 mg PO DAILY 01/06/23 01/30/23 Pregabalin [Lyrica] 150 mg PO BID 01/06/23 01/30/23 lisinopriL [Lisinopril] 10 mg PO QPM 01/06/23 01/30/23 Amitriptyline [Elavil] 10 mg PO HS #30 tablet 01/14/23 01/30/23 amLODIPine [Norvasc] 10 mg PO DAILY #30 tab 01/14/23 01/30/23 Acetaminophen [Aphen] 1 tab PO BID PRN 01/30/23 01/30/23 oxyBUTYnin chloride [Oxybutynin 15 mg PO DAILY 01/30/23 01/30/23 Chloride ER] Ipratropium/Albuterol [Duoneb] 3 ml INH Q6H #120 ml 01/31/23 predniSONE [Prednisone 21-TAB dose 10 mg PO UD #1 each 01/31/23 pack] - LABS Result Diagrams: 02/01/23 08:00 02/01/23 08:00"
[2023-02-01 11:31] VITALS: BP 128/50
== END 2023-02-01 14:00 | disposition home or self-care (01) ==
LOC: ED 07:46 → EEVIPCON 13:01 → MS2 13:01
PROVIDERS: ADMIT Specialist; ATTEND Specialist
DX: J96.01 Acute respiratory failure with hypoxia (principal); J45.901 Unspecified asthma with (acute) exacerbation; E86.0 Dehydration; N17.9 Acute kidney failure, unspecified; R60.0 Localized edema; E87.6 Hypokalemia; I10 Essential (primary) hypertension; R19.7 Diarrhea, unspecified; Z66 Do not resuscitate; G44.40 Drug-induced headache, not elsewhere classified, not intractable; T46.1X5A Adverse effect of calcium-channel blockers, initial encounter; Z20.822 Contact with and (suspected) exposure to COVID-19; E66.01 Morbid (severe) obesity due to excess calories; Z68.41 Body mass index [BMI] 40.0-44.9, adult; E11.9 Type 2 diabetes mellitus without complications; R00.0 Tachycardia, unspecified; I95.9 Hypotension, unspecified
CPT/HCPCS: 36415; 70450; 71045; 80048; 80053; 83605; 83690; 83735; 83880; 84484; 85025; 85379; 87633; 93005; 93970; 94640; 94664; 96365; 96372; 96375; 96376; 99285; 99291; A9270; G0378; J1650

== ENCOUNTER 2023-02-10 20:15 | Outpatient (CLI) | payer MEDICARE, MEDICAID | END 2023-02-10 23:59 | disposition short-term general hospital (02) | LOC: EMS 20:15 | DX: R09.89 Other specified symptoms and signs involving the circulatory and respiratory systems (principal); R50.9 Fever, unspecified; R41.0 Disorientation, unspecified; R05.9 Cough, unspecified; R35.0 Frequency of micturition | CPT/HCPCS: A0425; A0427 ==

== ENCOUNTER 2023-03-08 18:11 | Outpatient (CLI) | payer MEDICARE, MEDICAID | END 2023-03-08 23:59 | disposition critical access hospital (66) | LOC: EMS 18:11 | DX: R41.0 Disorientation, unspecified (principal); R06.02 Shortness of breath; R19.7 Diarrhea, unspecified; I10 Essential (primary) hypertension; R00.0 Tachycardia, unspecified | CPT/HCPCS: A0425; A0429 ==

== ENCOUNTER 2023-03-08 18:25 | Inpatient (IN) | payer MEDICARE, MEDICAID ==
[2023-03-08] MEDS ORDERED: IPRATROPIUM/ALBUTEROL 3 ML NEB INH STA (18:32)
[2023-03-08] MEDS ORDERED: SODIUM CHLORIDE 0.9% 1,000 ML IV STA ×4 (18:32→21:01)
[2023-03-08 18:54] LABS: HGB - HEMOGLOBIN 9.6 g/dL (12.0-16.0); MEAN CORPUSCULAR VOLUME 87.4 fL (81.0-99.0); MEAN PLATELET VOLUME 13.8 fL (7.9-10.8); VBG BASE EXCESS -0.6 mmol/L (-2 - +2); VBG HCO3 23.8 mmol/L (23-28); VBG OXYGEN SATURATION 49.4 % (60-80); VBG PCO2 38.3 mmHg (41-51); VBG PH 7.411 (7.31-7.41)
[2023-03-08 18:57] LABS: BASOPHILS % (AUTO) 0.4 %; EOSINOPHILS % (AUTO) 0.4 %; HCT - HEMATOCRIT 31.1 % (37.0-47.0); LYMPHOCYTES % (AUTO) 8.6 %; MEAN CORPUSCULAR HGB CONC 30.9 g/dL (32.0-36.0); MONOCYTES % (AUTO) 9.2 %; PLT - PLATELET COUNT 150 10^3/uL (130-450); RED BLOOD COUNT 3.56 10^6/uL (4.20-5.40); WHITE BLOOD COUNT 17.1 x10^3/uL (4.8-10.8)
[2023-03-08 19:00] LABS: ABNORMAL LYMPHS % (MANUAL) 0 %
--- OUTSIDE RECORDS SUMMARY | 2023-03-08 19:05 | EXTERNAL MEDICAL SUMMARY RPT | Continuity of Care Document ---
Author Name Unknown Address [address] [place] [address] Phone Organization [place] Address [address] [place] [address] Phone Results/Labs test date facility value unit notes
[2023-03-08 19:21] LABS: ACETAMINOPHEN 5.3 ug/mL; ALBUMIN 3.9 g/dL (3.2-5.5); ALBUMIN/GLOBULIN RATIO 1.6 (1.0-2.2); ALKALINE PHOSPHATASE 79 IU/L (42-121); ALT ALANINE AMINOTRANSFERASE 37 IU/L (10-60); AST ASPARTATE AMINOTRANSFERASE 39 IU/L (10-42); BILIRUBIN,TOTAL 0.5 mg/dL (0.2-1.0); BUN - BLOOD UREA NITROGEN 26 mg/dL (6-20); CALCIUM 11.3 mg/dL (8.5-10.3); CARBON DIOXIDE - CO2 25 mmol/L (21-32); CHLORIDE 100 mmol/L (101-111); CK- CREATINE KINASE 743 IU/L (30-223); ETOH - ETHANOL < 10.0 mg/dL; GFR - MDRD 11 (>89); GLUCOSE 181 mg/dL (74-104); POTASSIUM 4.1 mmol/L (3.5-4.5); SODIUM 134 mmol/L (135-145); TOTAL PROTEIN 6.4 g/dL (6.4-8.9)
[2023-03-08 19:29] LABS: BAND NEUTROPHILS % (MANUAL) 3 %; BASOPHILS # (MANUAL) 0.2 10^3/uL (0-0.1); BASOPHILS % (MANUAL) 1 %; LYMPHOCYTES # (MANUAL) 1.7 10^3/uL (1.5-3.5); LYMPHOCYTES % (MANUAL) 10 %; MONOCYTES # (MANUAL) 2.1 10^3/uL (0.0-1.0); NEUTROPHILS # (MANUAL) 13.2 10^3/uL (1.5-6.6)
[2023-03-08 19:30] LABS: DIFFERENTIAL COMMENT MANUAL DIFFERENTIAL; PLATELET ESTIMATE, MANUAL NORMAL (130-450,000) (NORMAL); PLATELET MORPHOLOGY NORMAL APPEARANCE (NORMAL)
--- NOTE | 2023-03-08 19:30 | XRAY Report ---
PROCEDURE: Chest 1 View X-Ray INDICATIONS: dyspnea TECHNIQUE: One view of the chest was acquired. COMPARISON: None. FINDINGS: Surgical changes and devices: None. Lungs and pleura: No pleural effusions or pneumothorax. Lungs are clear. Mediastinum: Mediastinal contours appear normal. Heart size is normal. Bones and chest wall: No suspicious bony lesions. Overlying soft tissues appear unremarkable. IMPRESSION: No acute cardiopulmonary process. Reviewed by: Brando Rodriguez on 03/08/2023 7:29 PM PDT Approved by: Brando Rodriguez on 03/08/2023 7:29 PM PDT Station ID: [id number]
[2023-03-08] MEDS ORDERED: MAGNESIUM SULFATE 2 GRAM 2 GM/50 ML BAG IV ONE (19:31)
[2023-03-08 19:32] LABS: LIPASE 9 U/L (11-82); THYROID STIMULATING HORMONE 2.35 uIU/mL (0.34-5.60)
[2023-03-08 19:56] LABS: B. PARAPERTUSSIS- RESP PCR PAN NOT DETECTED; B. PERTUSSIS- RESP PCR PANEL NOT DETECTED; C. PNEUMONIAE- RESP PCR PANEL NOT DETECTED; CORONAVIRUS 229E-RESP PCR NOT DETECTED; CORONAVIRUS HKU1-RESP PCR NOT DETECTED; CORONAVIRUS NL63-RESP PCR NOT DETECTED; CORONAVIRUS OC43-RESP PCR NOT DETECTED; HUMAN METAPNEUMOVIRUS NOT DETECTED; INFLUENZA A- RESP PCR PANEL NOT DETECTED; INFLUENZA B - RESP PCR PANEL NOT DETECTED; M. PNEUMONIAE- RESP PCR PANEL NOT DETECTED; PARAINFLUENZA VIRUS 1 NOT DETECTED; PARAINFLUENZA VIRUS 2 NOT DETECTED; PARAINFLUENZA VIRUS 3 NOT DETECTED; PARAINFLUENZA VIRUS 4 NOT DETECTED; RHINOVIRUS/ENTEROVIRUS NOT DETECTED; RSV- RESP PCR PANEL NOT DETECTED; SARS-CoV-2 -RESP PCR PANEL NOT DETECTED
[2023-03-08 19:57] LABS: SALICYLATE < 1.5 mg/dL
--- NOTE | 2023-03-08 20:06 | ED Physician Documentation ---
History of Present Illness - Stated complaint Stated Complaint: AMS/SOA - Chief complaint Chief Complaint: Neuro - History obtained from History obtained from: Patient, Family, EMS - History of Present Illness Timing: Today Pain level max: 0 Pain level now: 0 - Additonal information Additional information: Patient is a 67-year-old female who presents to the emergency department with decreased responsiveness today. Initial report from EMS was hypertension, patient is hypotensive here. IV fluids were started. Patient states that she has had diarrhea since yesterday. Decreased oral intake yesterday and today. She has been admitted to the [facility] x in the past 2 months for similar. She was admitted here twice and at [facility] once. Family states that she just got out of a snf facility 4 days ago. They state that since that time she has gone "downhill". Review of Systems Unable to obtain: AMS Constitutional: denies: Fever, Chills GI: reports: Diarrhea. 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 () : Incontinence, Frequency HEENT: None Psych: Anxiety, Panic attacks Musculoskeletal: Other (generalized w shoulder impingment, hip pain, intermitt back pain) Derm: None - Past Surgical History Past Surgical History: Yes General: Appendectomy, Colonoscopy Ortho: Hip replacement - Present Medications Home Medications: Ambulatory Orders Medication Instructions Recorded Confirmed Albuterol Sulfate [Proair 1 puffs INH Q4H PRN 11/09/15 01/30/23 Respiclick] Atorvastatin Calcium [Lipitor] 80 mg PO QPM 01/06/23 01/30/23 Cyclobenzaprine [Flexeril] 10 mg PO TID PRN 01/06/23 01/30/[address] [Voltaren] 75 mg PO BID PRN 01/06/23 01/30/23 Metoprolol Succinate [Toprol Xl] 25 mg PO DAILY 01/06/23 01/30/23 Pregabalin [Lyrica] 150 mg PO BID 01/06/23 01/30/23 lisinopriL [Lisinopril] 10 mg PO QPM 01/06/23 01/30/23 Amitriptyline [Elavil] 10 mg PO HS #30 tablet 01/14/23 01/30/23 amLODIPine [Norvasc] 10 mg PO DAILY #30 tab 01/14/23 01/30/23 Acetaminophen [Aphen] 1 tab PO BID PRN 01/30/23 01/30/23 oxyBUTYnin chloride [Oxybutynin 15 mg PO DAILY 01/30/23 01/30/23 Chloride ER] Ipratropium/Albuterol [Duoneb] 3 ml INH Q6H #120 ml 01/31/23 predniSONE [Prednisone 21-TAB dose 10 mg PO UD #1 each 01/31/23 pack] - Allergies Allergies/Adverse Reactions: Allergies Allergy/AdvReac Type Severity Reaction Status Date / Time morphine Allergy Severe Rash Verified 01/30/23 08:01 Penicillins Allergy Intermediate Rash Verified 01/30/23 08:01 - Social History Does the pt smoke?: No Smoking Status: Never smoker Does the pt drink ETOH?: No Does the pt have substance abuse?: No - Immunizations Immunizations are current?: No Immunizations: TDAP >10years/unknown - POLST Patient has POLST: No POLST Status: DNR (Daughter is in the room when mom says she wants to be DNR, DNI) PD ED PE NORMAL - Vitals Vital signs reviewed: Yes - General General: No acute distress, Other (drowsy, but arousable.) - HEENT HEENT: Atraumatic, PERRL, EOMI, Moist mucous membranes - Neck Neck: Supple, no meningeal sign, No bony TTP - Cardiac Cardiac: RRR - Respiratory Respiratory: No respiratory distress, Clear bilaterally - Abdomen Abdomen: Soft, Non tender, Non distended - Derm Derm: Warm and dry - Extremities Extremities: No calf tenderness / cord, Other (1+ B edema) - Neuro Neuro: Other (drowsy, but arousable and oriented x 3) Results - Vitals Vitals: Vital Signs - 24 hr 03/08/23 03/08/23 03/08/23 18:30 18:50 19:18 Temperature 36.4 C L Heart Rate 104 H 99 105 H Respiratory 20 18 19 Rate Blood Pressure 73/40 L 52/40 L O2 Saturation 96 94 03/08/23 03/08/23 03/08/23 19:19 19:30 19:59 Temperature Heart Rate 99 100 98 Respiratory 17 18 15 Rate Blood Pressure 98/72 102/43 L 87/46 L O2 Saturation 100 98 97 03/08/23 03/08/23 03/08/23 20:30 21:00 22:00 Temperature 37.2 C Heart Rate 94 95 103 H Respiratory 15 15 16 Rate Blood Pressure 78/39 L 77/40 L 98/45 L O2 Saturation 94 96 93 Oxygen O2 Source Room air - Labs Labs: Laboratory Tests 03/08/23 03/08/23 03/08/23 18:31 18:47 18:47 WBC 17.1 H RBC 3.56 L Hgb 9.6 L Hct 31.1 L MCV 87.4 MCH 27.0 MCHC 30.9 L RDW 16.0 H Plt Count 150 MPV 13.8 H Neut # (Auto) Not Reportable Lymph # (Auto) Not Reportable [place] # (Auto) Not Reportable Eos # (Auto) Not Reportable Baso # (Auto) Not Reportable Absolute Nucleated RBC Not Reportable Total Counted 100 Band Neuts % (Manual) 3 Abnorm Lymph % (Manual) 0 Nucleated RBC % Not Reportable Neutrophils # (Manual) 13.2 H Lymphocytes # (Manual) 1.7 Monocytes # (Manual) 2.1 H Eosinophils # (Manual) 0.0 Basophils # (Manual) 0.2 H Differential Comment MANUAL DIFFERENTIAL Platelet Estimate NORMAL (130-450,000) Platelet Morphology NORMAL APPEARANCE RBC Morph Micro Appear 1+ POLYCHROMASIA VBG pH VBG pCO2 VBG pO2 VBG HCO3 VBG Total CO2 VBG O2 Saturation VBG Base Excess Sodium 134 L Potassium 4.1 Chloride 100 L Carbon Dioxide 25 Anion Gap 9.0 BUN 26 H Creatinine 4.0 H Estimated GFR (MDRD) 11 L Glucose 181 H POC Whole Bld Glucose 165 H Lactic Acid Calcium 11.3 H Magnesium 1.0 L* Total Bilirubin 0.5 AST 39 ALT 37 Alkaline Phosphatase 79 Total Creatine Kinase 743 H Total Protein 6.4 Albumin 3.9 Globulin 2.5 Albumin/Globulin Ratio 1.6 Lipase 9 L TSH 2.35 Nasal Adenovirus (PCR) Nasal B. parapertussis DNA (PCR) Nasal Coronavir 229E PCR Nasal Coronavir HKU1 PCR Nasal Coronavir NL63 PCR Nasal Coronavir OC43 PCR Nasal Enterovir/Rhinovir PCR Nasal Influenza B PCR Nasal Influenza A PCR Nasal Parainfluen 1 PCR Nasal Parainfluen 2 PCR Nasal Parainfluen 3 PCR Nasal Parainfluen 4 PCR Nasal RSV (PCR) Nasal B.pertussis DNA PCR Nasal C.pneumoniae (PCR) Robinson Human Metapneumo PCR Nasal M.pneumoniae (PCR) Nasal SARS-CoV-2 (PCR) Salicylates < 1.5 Acetaminophen 5.3 Ethyl Alcohol < 10.0 03/08/23 03/08/23 03/08/23 18:47 18:47 18:50 WBC RBC Hgb Hct MCV MCH MCHC RDW Plt Count MPV Neut # (Auto) Lymph # (Auto) [place] # (Auto) Eos # (Auto) Baso # (Auto) Absolute Nucleated RBC Total Counted Band Neuts % (Manual) Abnorm Lymph % (Manual) Nucleated RBC % Neutrophils # (Manual) Lymphocytes # (Manual) Monocytes # (Manual) Eosinophils # (Manual) Basophils # (Manual) Differential Comment Platelet Estimate Platelet Morphology RBC Morph Micro Appear VBG pH 7.411 H VBG pCO2 38.3 L VBG pO2 25.0 VBG HCO3 23.8 VBG Total CO2 25.0 VBG O2 Saturation 49.4 L VBG Base Excess -0.6 Sodium Potassium Chloride Carbon Dioxide Anion Gap BUN Creatinine Estimated GFR (MDRD) Glucose POC Whole Bld Glucose Lactic Acid 1.9 Calcium Magnesium Total Bilirubin AST ALT Alkaline Phosphatase Total Creatine Kinase Total Protein Albumin Globulin Albumin/Globulin Ratio Lipase TSH Nasal Adenovirus (PCR) NOT DETECTED Nasal B. parapertussis DNA (PCR) NOT DETECTED Nasal Coronavir 229E PCR NOT DETECTED Nasal Coronavir HKU1 PCR NOT DETECTED Nasal Coronavir NL63 PCR NOT DETECTED Nasal Coronavir OC43 PCR NOT DETECTED Nasal Enterovir/Rhinovir PCR NOT DETECTED Nasal Influenza B PCR NOT DETECTED Nasal Influenza A PCR NOT DETECTED Nasal Parainfluen 1 PCR NOT DETECTED Nasal Parainfluen 2 PCR NOT DETECTED Nasal Parainfluen 3 PCR NOT DETECTED Nasal Parainfluen 4 PCR NOT DETECTED Nasal RSV (PCR) NOT DETECTED Nasal B.pertussis DNA PCR NOT DETECTED Nasal C.pneumoniae (PCR) NOT DETECTED Robinson Human Metapneumo PCR NOT DETECTED Nasal M.pneumoniae (PCR) NOT DETECTED Nasal SARS-CoV-2 (PCR) NOT DETECTED Salicylates Acetaminophen Ethyl Alcohol PD Medical Decision Making - ED course Complexity details: reviewed results, re-evaluated patient, considered d ifferential, d/w patient, d/w family ED course: Patient is a 67-year-old female with decreased mental status, hypotension, significant dehydration. Loza catheter was placed with no urine return. She was given 3 L of IV fluid and started to have urine output again. She does remain drowsy but is arousable and does speak coherently. No indication for emergent head CT. No trauma. Has had multiple similar events over the past 2 months. Attempted to get records from her recent admission at [facility] [place], but they state there is no one in medical records until Friday. Her lactate is normal, white blood cell count is elevated. No evidence of pneumonia. No fever here. The patient will be signed out to Dr. Reed pending admission, urinalysis is still pending, given that she has had urosepsis, I think this is important to obtain before admission. When her creatinine has improved, she may benefit from a abdomen pelvis CT with contrast. The patient is full code. Blood pressure improved with IV fluids. We will hold off on a central line and pressors at this time, as she is improving, her BP is improving and her mentation is stable. This document was made in part using voice recognition software. While efforts are made to proofread this document, sound alike and grammatical errors may occur. Patient was significantly hypomagnesemic. This was replaced. Departure - Departure Disposition: 67 [facility] DC/Xfer Clinical Impression: Dehydration, Acute kidney injury, Hypomagnesemia Hypotension Qualifiers: Hypotension type: unspecified hypotension type Qualified Code(s): I95.9 - Hypotension, unspecified Diarrhea Qualifiers: Diarrhea type: unspecified type Qualified Code(s): R19.7 - Diarrhea, unspecified Condition: Stable Forms: PCP List
[2023-03-08 22:23] LABS: MUDS CUTOFF CONCENTRATIONS CUTOFF CONC BELOW:
[2023-03-08 22:25] LABS: BILIRUBIN,URINE NEGATIVE (NEGATIVE); GLUCOSE, URINE (UA) NEGATIVE (NEGATIVE); KETONES,URINE (UA) NEGATIVE (NEGATIVE); LEUKOCYTE ESTERASE, URINE TRACE (NEGATIVE); NITRITE,URINE NEGATIVE (NEGATIVE); OCCULT BLOOD,URINE NEGATIVE (NEGATIVE); PROTEIN,URINE TRACE mg/dL (NEGATIVE); UROBILINOGEN,URINE 0.2 (NORMAL) E.U./dL (NORMAL)
[2023-03-08 22:30] LABS: CLARITY,URINE HAZY (CLEAR)
[2023-03-08 22:36] LABS: BACTERIA,URINE Moderate /HPF (None Seen); RBC,URINE 0-5 /HPF (0-5); SQUAMOUS EPITHELIAL CELL,UR RARE Squamous (<= Few)
[2023-03-08 22:37] LABS: AMPHETAMINE SCREEN,URINE POSITIVE (NEGATIVE); BARBITURATE SCREEN,UR NEGATIVE (NEGATIVE); BENZODIAZEPINES SCREEN, URINE NEGATIVE (NEGATIVE); COCAINE SCREEN URINE NEGATIVE (NEGATIVE); METHADONE SCREEN, URINE NEGATIVE (NEGATIVE); METHAMPHETAMINES SCREEN, URINE POSITIVE (NEGATIVE); MUCUS,URINE Moderate Strands; OPIATE SCREEN, URINE NEGATIVE (NEGATIVE); OXYCODONE SCREEN, URINE NEGATIVE (NEGATIVE); PROPOXYPHENE SCREEN, URINE NEGATIVE (NEGATIVE); THC CANNABINOID SCREEN, URINE NEGATIVE (NEGATIVE); TRICYCLIC ANTIDEPRESSANT,URINE POSITIVE (NEGATIVE)
[2023-03-08] MEDS ORDERED: cefTRIAXone 1 GM in SODIUM CHLORIDE 0.9% MINIBAG 100 ML IV STA (22:54)
[2023-03-08] MEDS ORDERED: ONDANSETRON 4 MG/2 ML VIAL IVP PRN (22:59)
[2023-03-08] MEDS ORDERED: SODIUM CHLORIDE FLUSH 0.9% 10 ML SYRINGE IVP PRN (22:59)
--- NOTE | 2023-03-08 23:14 | HISTORY & PHYSICAL EXAMINATION ---
Chief Complaint - Chief Complaint Chief Complaint: AMS History of Present Illness - History of Present Illness HPI Comment/Other: 67 Y old female with PMH HTN, Hyperlipidemia, Anxiety, brought in by EMG due to decreases responsiveness. Pt is quite sleepy at this time so most of history from the ER physician. Apparently patient was dischsrged from a SNF about 4 days ago. History of poor oral intake. On presentaion, patient was hypotensive Labs showed WBC 17, Fuel Testing Technician 4.0, Mag 1, Ca 11.3, CPK 765, UA positive for WBC. 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 Mom in her 70s of complications of Parkinson's and renal failure. 2 siblings have . 1 of cancer, and the other one she was not close to and does not know what her sister of. Her remaining siblings do have high blood pressure, diabetes, thyroid, heart disease. 4 child roddy. 1 in an accident at the age of 18. 1 daughter has problems with alcoholism is in a 1 year rehab facility. Living Situation: Alone Social History Notes: Never smoked. Does not drink. Has no history of alcohol abuse and says "1 alcoholic in the family is enough". She has been for decades. She said she was from him longer than she was to him. On Social Security disability for decades now because of back pain and hip pain. No history of recreational substance abuse. - Substance History Use: Uses substance without health or social issues: NONE - POLST Patient has POLST: No POLST Status: DNR (Daughter is in the room when mom says she wants to be DNR, DNI) Meds/Allgy - Home Medications Home Medications: Ambulatory Orders Medication Instructions Recorded Confirmed Albuterol Sulfate [Proair 1 puffs INH Q4H PRN 11/09/15 01/30/23 Respiclick] Atorvastatin Calcium [Lipitor] 80 mg PO QPM 01/06/23 01/30/23 Cyclobenzaprine [Flexeril] 10 mg PO TID PRN 01/06/23 01/30/[address] [Voltaren] 75 mg PO BID PRN 01/06/23 01/30/23 Metoprolol Succinate [Toprol Xl] 25 mg PO DAILY 01/06/23 01/30/23 Pregabalin [Lyrica] 150 mg PO BID 01/06/23 01/30/23 lisinopriL [Lisinopril] 10 mg PO QPM 01/06/23 01/30/23 Amitriptyline [Elavil] 10 mg PO HS #30 tablet 01/14/23 01/30/23 amLODIPine [Norvasc] 10 mg PO DAILY #30 tab 01/14/23 01/30/23 Acetaminophen [Aphen] 1 tab PO BID PRN 01/30/23 01/30/23 oxyBUTYnin chloride [Oxybutynin 15 mg PO DAILY 01/30/23 01/30/23 Chloride ER] Ipratropium/Albuterol [Duoneb] 3 ml INH Q6H #120 ml 01/31/23 predniSONE [Prednisone 21-TAB dose 10 mg PO UD #1 each 01/31/23 pack] - Allergies Allergies/Adverse Reactions: Allergies Allergy/AdvReac Type Severity Reaction Status Date / Time morphine Allergy Severe Rash Verified 01/30/23 08:01 Penicillins Allergy Intermediate Rash Verified 01/30/23 08:01 Review of Systems - Constitutional Constitutional: reports: Weakness - Other Findings Other Findings: Unable to obtain as patient is quite sleepy at this time Exam - Vital Signs Vital Signs: Vital Signs x48h Temp Pulse Resp BP Pulse Ox O2 Flow Rate 03/08/23 23:00 104 H 16 102/84 H 94 2 03/08/23 22:30 102 H 16 98/43 L 92 03/08/23 22:00 37.2 C 105 H 16 98/45 L 94 03/08/23 21:30 100 16 110/34 L 95 03/08/23 21:00 95 15 77/40 L 96 03/08/23 20:30 94 15 78/39 L 94 03/08/23 19:59 98 15 87/46 L 97 03/08/23 19:30 100 18 102/43 L 98 03/08/23 19:19 99 17 98/72 100 03/08/23 19:18 105 H 19 52/40 L 94 03/08/23 18:50 99 18 03/08/23 18:30 36.4 C L 104 H 20 73/40 L 96 - Physical Exam General Appearance: positive: No acute distress Eyes Bilateral: positive: Normal inspection ENT: positive: ENT inspection nml Neck: positive: Nml inspection Respiratory: positive: Breath sounds nml Cardiovascular: positive: Regular rate & rhythm Abdomen: positive: Non-tender, Nml bowel sounds Skin: positive: No rash Neurologic/Psychiatric: positive: Motor nml Conclusion/Plan - Lab Results Fish Bones: 03/08/23 18:47 03/08/23 18:47 - Other Other Results/Comments: A: Severe sepsis UTI Acute encephalopathy Acute rhabdomyolysis BREANNA Dehydration Hypomagnesemia Hypercalcemia leukocytosis HTN Hyperlipidemia Utox positive for methamphetaime Plan: Admit in tele Follow cx Start NS @100 cc/h Start alfonsoephileila Messer lactic acid Repeat CBC, BMP in am NPO Swallow screen by RN Repeat CK in am Monitor i/o, electrolytes Replace mag DVT prophylaxic: SCD Full code Pt is admitted as inpatient as more than 2 midnight stay is expected
[2023-03-09] MEDS: SODIUM CHLORIDE FLUSH 0.9% 10 ML SYRINGE IVP SCH ×2 (01:20→15:43)
[2023-03-09] MEDS: SODIUM CHLORIDE 0.9% 1,000 ML IV SCH ×3 (01:20→20:35)
[2023-03-09 05:38] LABS: BASOPHILS # (AUTO) 0.1 10^3/uL (0.0-0.1); BASOPHILS % (AUTO) 0.5 %; EOSINOPHILS # (AUTO) 0.2 10^3/uL (0.0-0.7); EOSINOPHILS % (AUTO) 1.5 %; HCT - HEMATOCRIT 32.4 % (37.0-47.0); HGB - HEMOGLOBIN 9.5 g/dL (12.0-16.0); LYMPHOCYTES % (AUTO) 18.8 %; MEAN CORPUSCULAR HEMOGLOBIN 26.8 pg (27.0-31.0); MEAN CORPUSCULAR HGB CONC 29.3 g/dL (32.0-36.0); MEAN CORPUSCULAR VOLUME 91.3 fL (81.0-99.0); MONOCYTES # (AUTO) 1.1 10^3/uL (0.0-1.0); MONOCYTES % (AUTO) 10.1 %; NEUTROPHILS # (AUTO) 7.2 10^3/uL (1.5-6.6); NEUTROPHILS % (AUTO) 68.8 %; PLT - PLATELET COUNT 123 10^3/uL (130-450); RED BLOOD COUNT 3.55 10^6/uL (4.20-5.40); RED CELL DISTRIBUTION WIDTH 16.4 % (12.0-15.0); WHITE BLOOD COUNT 10.4 x10^3/uL (4.8-10.8)
[2023-03-09 05:53] LABS: CALCIUM 9.7 mg/dL (8.5-10.3); CREATININE 2.9 mg/dL (0.6-1.3); POTASSIUM 3.9 mmol/L (3.5-4.5)
[2023-03-09] MEDS: ACETAMINOPHEN 325 MG TABLET PO PRN ×2 (06:57→13:46)
--- NOTE | 2023-03-09 07:53 | PROVIDER PROGRESS NOTE ---
Assessment/Plan - Problem List (1) Sepsis Qualifiers: Sepsis type: sepsis due to unspecified organism Sepsis acute organ dysfunction status: with acute organ dysfunction Severe sepsis acute organ dysfunction type: acute renal failure Acute renal failure type: unspecified Severe sepsis shock status: without septic shock Assessment/Plan: A UTI is the source. She had elevated WBC 17, tachycardia HR 104, low BP 70/40, altered mental status and BREANNA creat 4. These are all improving (labs were all reviewed) Her last UTI grew claire-sens E coli Plan: Await urine culture and blood cultures to tailor antibiotics Continue with empiric IV ceftriaxone Follow WBC daily Continue gentle IV fluids (2) UTI (urinary tract infection) Qualifiers: Urinary tract infection type: site unspecified Hematuria presence: without hematuria Qualified Code(s): N39.0 - Urinary tract infection, site not specified Assessment/Plan: Many bacteria and high WBC on UA Her altered mental status could be from the infection on top of having had meth. She is minimally improved today Plan: Will do abdomen/pelvis CT imaging to recheck for the renal stone seen on prior CT scans. If it is present will plan to get a Urology consult Await urine and blood culture results to tailor antibiotics Continue with empiric IV ceftriaxone Will start probiotics (3) Acute kidney injury Assessment/Plan: She presented with a creatinine of 4.0. This is likely due to dehydration and her UTI Plan: Continue IV fluids Avoid nephrotoxins Follow BUN/creatinine daily (4) Rhabdomyolysis Assessment/Plan: Probably from laying for prolonged period of time. She has had this before Plan: Continue with IV fluids Follow CK daily (5) Hypomagnesemia Assessment/Plan: Likely from severely diminished oral intake for the last few days; family reported that when she got home from SNF 4 days ago, she immediately started to decline w/ less oral intake and became more weak Plan: Replace with magnesium IV rider Follow magnesium daily (6) Encephalopathy Assessment/Plan: Family reported that when she got home from SNF 4 days ago, she immediately started to decline w/ less oral intake and became more weak and sleepy. This is multifactorial: Probably from the sepsis and UTI but also from meth use and I suspect she is withdrawing from that currently with her somnolence and intermittent awakeningw/ confusion. Plan: Social work consult will be requested regarding pilar meth use, and to see why she has recurrent admissions shortly after being discharged from SNF. I suspect she may need more caregivers at home going forward. I discussed this with the son Ruben at bedside, her DPOA PT and OT evaluations to be ordered also. (7) Methamphetamine abuse Assessment/Plan: Her chart says there was no history of substance abuse. On this adm her tox screen shows positive meth as well as tricyclic's (she is on Amitriptyline) I spoke to the DPOA's significant other Lupe, outside the patient's room. Lupe said that the patient admitted to them she used meth 2 months ago but denied she used it recently. Lupe and the pt's son Ruben the DPOA have asked that her tox screen be retested to see if it is true or a lab error. The [facility] toxicology screen was repeated and has same result with (+) meth. I asked the pt where she is getting meth into her body and she said she "has no idea". I discussed the (new) positive meth finding with her son Ruben, the DPOA. He said he "thinks he knows where it is coming from". Currently the patient lives alone. Plan: Symptomatic treatment during her probable current withdrawal from meth, she is hypersomnolent today, only answers 2-word sentences, and awakens confused and irritable. Social work consult regarding substance abuse will be requested, when she is awake and able to interact more (8) History of essential hypertension Assessment/Plan: The patient presented hypotensive. She has received aggressive IV crystalloid replacement. Her blood pressure is now normal She carries a history of hypertension. I reviewed her EMR. The patient was unable to tolerate Norvasc because it caused headaches and side effect of leg edema Plan: We will resume blood pressure meds when appropriate, when the list is reconcil ed, no longer using Norvasc (9) Morbid obesity with BMI of 40.0-44.9, adult Assessment/Plan: This complicates all her care - Current Meds Current Meds: Current Medications Generic Name Dose Route Start Last Admin Trade Name Freq PRN Reason Stop Dose Admin Acetaminophen 650 mg 03/09/23 06:45 03/09/23 06:57 Acetaminophen 325 Mg Tablet PO 650 mg Q4HR PRN Administration Pain or Fever > 38C (100.4F) Sodium Chloride 1,000 mls @ 100 mls/hr 03/08/23 23:00 03/09/23 01:20 Normal Saline 0.9% IV 100 mls/hr .Q10H LESLEE Administration Sodium Chloride 10 ml 03/09/23 01:00 03/09/23 01:20 Sodium Chloride Flush 0.9% 10 Ml Syringe IVP 10 ml 0100,0900,1700 LESLEE Administration - Lab Result Fish Bone Diagrams: 03/09/23 05:30 03/09/23 05:30 - Additional Planning My Orders: My Active Orders 03/09/23 CULTURE, BLOOD #1 [RM] Stat 03/09/23 Breakfast Clear Liquid Diet [DIET] 03/09/23 05:00 MAGNESIUM [CHEM] Routine 03/09/23 07:49 Blood Glucose Checks - Eating [RC] 0800,1200,1700,2100 Initiate Hypoglycemia Protocol [RC] .protocol 03/09/23 08:00 Insulin Lispro [Humalog Kwikpen U-100] 1 - 5 unit SUBQ 0800,1200,1700,2100 03/09/23 Lunch DIET [Soft Mechanical Diet] [DIET] 03/10/23 05:00 BMP - BASIC METABOLIC PANEL [CHEM] DAILYLAB CBC - COMP BLD CT W/AUTO DIFF [HEME] DAILYLAB CK- CREATINE KINASE [CHEM] DAILYLAB HEMOGLOBIN A1c% [CHEM] DAILYLAB MAGNESIUM [CHEM] DAILYLAB 03/11/23 05:00 BMP - BASIC METABOLIC PANEL [CHEM] DAILYLAB CBC - COMP BLD CT W/AUTO DIFF [HEME] DAILYLAB CK- CREATINE KINASE [CHEM] DAILYLAB MAGNESIUM [CHEM] DAILYLAB 03/12/23 05:00 BMP - BASIC METABOLIC PANEL [CHEM] DAILYLAB CBC - COMP BLD CT W/AUTO DIFF [HEME] DAILYLAB CK- CREATINE KINASE [CHEM] DAILYLAB MAGNESIUM [CHEM] DAILYLAB 03/13/23 05:00 BMP - BASIC METABOLIC PANEL [CHEM] DAILYLAB CBC - COMP BLD CT W/AUTO DIFF [HEME] DAILYLAB MAGNESIUM [CHEM] DAILYLAB Subjective - Subjective Patient Reports: Other (Confused, mostly sleeping during the day) Objective Vital Signs: Vital Signs - 24 hr 03/08/23 03/08/23 03/08/23 18:30 18:50 19:18 Temperature 36.4 C L Heart Rate 104 H 99 105 H Heart Rate [ Brachial] Respiratory 20 18 19 Rate Blood Pressure 73/40 L 52/40 L Blood Pressure [Left Brachial artery] Blood Pressure [Right Brachial artery] O2 Saturation 96 94 If not protocol : Oxygen Flow, liters/minute 03/08/23 03/08/23 03/08/23 19:19 19:30 19:59 Temperature Heart Rate 99 100 98 Heart Rate [ Brachial] Respiratory 17 18 15 Rate Blood Pressure 98/72 102/43 L 87/46 L Blood Pressure [Left Brachial artery] Blood Pressure [Right Brachial artery] O2 Saturation 100 98 97 If not protocol : Oxygen Flow, liters/minute 03/08/23 03/08/23 03/08/23 20:30 21:00 21:30 Temperature Heart Rate 94 95 100 Heart Rate [ Brachial] Respiratory 15 15 16 Rate Blood Pressure 78/39 L 77/40 L 110/34 L Blood Pressure [Left Brachial artery] Blood Pressure [Right Brachial artery] O2 Saturation 94 96 95 If not protocol : Oxygen Flow, liters/minute 03/08/23 03/08/23 03/08/23 22:00 22:30 23:00 Temperature 37.2 C Heart Rate 105 H 102 H 104 H Heart Rate [ Brachial] Respiratory 16 16 16 Rate Blood Pressure 98/45 L 98/43 L 102/84 H Blood Pressure [Left Brachial artery] Blood Pressure [Right Brachial artery] O2 Saturation 94 92 94 If not protocol 2 : Oxygen Flow, liters/minute 03/09/23 03/09/23 03/09/23 00:15 00:16 04:26 Temperature 36.7 C 37.8 C Heart Rate Heart Rate [ 109 H 114 H Brachial] Respiratory 22 20 Rate Blood Pressure Blood Pressure 134/70 H [Left Brachial artery] Blood Pressure 122/93 H [Right Brachial artery] O2 Saturation 100 95 If not protocol 1 1 1 : Oxygen Flow, liters/minute 03/09/23 03/09/23 03/09/23 06:21 06:22 07:18 Temperature 39.3 C H 39.3 C H Heart Rate Heart Rate [ Brachial] Respiratory Rate Blood Pressure Blood Pressure [Left Brachial artery] Blood Pressure [Right Brachial artery] O2 Saturation If not protocol 1 : Oxygen Flow, liters/minute Oxygen O2 Source Room air I&O (Last 24 Hrs): Intake and Output Totals x24h 03/07/23 03/08/23 03/09/23 23:59 23:59 23:59 Intake Total 1000 100 Output Total 50 450 Balance 950 -350 General: Mild distress (Having intermittent agitation but is overall cooperative and really directable), Other (Disheveled. Obese.) HEENT: Mucous membr. moist/pink, Other (Skin laceration lateral to her right temp) Neck: Supple, No JVD Neuro: Disoriented (Intermittently confused. Answers with 1-2 word answers), Non Focal, Other (Hypersomnolent today, only answers 2-word sentences, and awakens confused and irritable.) Cardiovascular: Regular rate Respiratory: No respiratory distress Abdomen: Soft, Other (Obese with pannus) Genitourinary: Other (Has a Loza) Extremities: No clubbing, Other (1+ edema) - Results Results: Laboratory Results WBC 10.4 x10^3/uL (4.8-10.8) 03/09/23 05:30 RBC 3.55 10^6/uL (4.20-5.40) L 03/09/23 05:30 Hgb 9.5 g/dL (12.0-16.0) L 03/09/23 05:30 Hct 32.4 % (37.0-47.0) L 03/09/23 05:30 MCV 91.3 fL (81.0-99.0) 03/09/23 05:30 MCH 26.8 pg (27.0-31.0) L 03/09/23 05:30 MCHC 29.3 g/dL (32.0-36.0) L 03/09/23 05:30 RDW 16.4 % (12.0-15.0) H 03/09/23 05:30 Plt Count 123 10^3/uL (130-450) L 03/09/23 05:30 MPV 13.0 fL (7.9-10.8) H 03/09/23 05:30 Neut # (Auto) 7.2 10^3/uL (1.5-6.6) H 03/09/23 05:30 Lymph # (Auto) 2.0 10^3/uL (1.5-3.5) 03/09/23 05:30 [place] # (Auto) 1.1 10^3/uL (0.0-1.0) H 03/09/23 05:30 Eos # (Auto) 0.2 10^3/uL (0.0-0.7) 03/09/23 05:30 Baso # (Auto) 0.1 10^3/uL (0.0-0.1) 03/09/23 05:30 Absolute Nucleated RBC 0.00 x10^3/uL 03/09/23 05:30 Total Counted 100 03/08/23 18:47 Band Neuts % (Manual) 3 % (0-10) 03/08/23 18:47 Abnorm Lymph % (Manual) 0 % 03/08/23 18:47 Nucleated RBC % 0.0 /100WBC 03/09/23 05:30 Neutrophils # (Manual) 13.2 10^3/uL (1.5-6.6) H 03/08/23 18:47 Lymphocytes # (Manual) 1.7 10^3/uL (1.5-3.5) 03/08/23 18:47 Monocytes # (Manual) 2.1 10^3/uL (0.0-1.0) H 03/08/23 18:47 Eosinophils # (Manual) 0.0 10^3/uL (0-0.7) 03/08/23 18:47 Basophils # (Manual) 0.2 10^3/uL (0-0.1) H 03/08/23 18:47 Differential Comment MANUAL DIFFERENTIAL 03/08/23 18:47 Platelet Estimate NORMAL (130-450,000) (NORMAL) 03/08/23 18:47 Platelet Morphology NORMAL APPEARANCE (NORMAL) 03/08/23 18:47 RBC Morph Micro Appear 1+ ANISOCYTOSIS (NORMAL) 1+ POLYCHROMASIA (NORMAL) 03/08/23 18:47 RBC Morph Micro Appear 1+ ANISOCYTOSIS (NORMAL) 1+ POLYCHROMASIA (NORMAL) 03/08/23 18:47 VBG pH 7.411 (7.31-7.41) H 03/08/23 18:47 VBG pCO2 38.3 mmHg (41-51) L 03/08/23 18:47 VBG pO2 25.0 mmHg (25-47) 03/08/23 18:47 VBG HCO3 23.8 mmol/L (23-28) 03/08/23 18:47 VBG Total CO2 25.0 mmol/L (24-29) 03/08/23 18:47 VBG O2 Saturation 49.4 % (60-80) L 03/08/23 18:47 VBG Base Excess -0.6 mmol/L (-2 - +2) 03/08/23 18:47 Sodium 137 mmol/L (135-145) 03/09/23 05:30 Potassium 3.9 mmol/L (3.5-4.5) 03/09/23 05:30 Chloride 109 mmol/L (101-111) 03/09/23 05:30 Carbon Dioxide 21 mmol/L (21-32) 03/09/23 05:30 Anion Gap 7.0 (6-13) 03/09/23 05:30 BUN 24 mg/dL (6-20) H 03/09/23 05:30 Creatinine 2.9 mg/dL (0.6-1.3) H 03/09/23 05:30 Estimated GFR (MDRD) 16 (>89) L 03/09/23 05:30 Glucose 122 mg/dL (74-104) H 03/09/23 05:30 POC Whole Bld Glucose 165 mg/dL (70 - 100) H 03/08/23 18:31 Lactic Acid 1.8 mmol/L (0.5-2.2) 03/09/23 05:30 Calcium 9.7 mg/dL (8.5-10.3) 03/09/23 05:30 Magnesium 1.0 mg/dL (1.7-2.3) L* 03/08/23 18:47 Total Bilirubin 0.5 mg/dL (0.2-1.0) 03/08/23 18:47 AST 39 IU/L (10-42) 03/08/23 18:47 ALT 37 IU/L (10-60) 03/08/23 18:47 Alkaline Phosphatase 79 IU/L (42-121) 03/08/23 18:47 Total Creatine Kinase 582 IU/L (30-223) H 03/09/23 05:30 Total Protein 6.4 g/dL (6.4-8.9) 03/08/23 18:47 Albumin 3.9 g/dL (3.2-5.5) 03/08/23 18:47 Globulin 2.5 g/dL (2.1-4.2) 03/08/23 18:47 Albumin/Globulin Ratio 1.6 (1.0-2.2) 03/08/23 18:47 Lipase 9 U/L (11-82) L 03/08/23 18:47 TSH 2.35 uIU/mL (0.34-5.60) 03/08/23 18:47 Urine Color YELLOW 03/08/23 22:20 Urine Clarity HAZY (CLEAR) 03/08/23 22:20 Urine pH 5.0 PH (5.0-7.5) 03/08/23 22:20 Ur Specific [place] 1.015 (1.002-1.030) 03/08/23 22:20 Urine Protein TRACE mg/dL (NEGATIVE) 03/08/23 22:20 Urine Glucose (UA) NEGATIVE mg/dL (NEGATIVE) 03/08/23 22:20 Urine Ketones NEGATIVE mg/dL (NEGATIVE) 03/08/23 22:20 Urine Occult Blood NEGATIVE (NEGATIVE) 03/08/23 22:20 Urine Nitrite NEGATIVE (NEGATIVE) 03/08/23 22:20 Urine Bilirubin NEGATIVE (NEGATIVE) 03/08/23 22:20 Urine Urobilinogen 0.2 (NORMAL) E.U./dL (NORMAL) 03/08/23 22:20 Ur Leukocyte Esterase TRACE (NEGATIVE) H 03/08/23 22:20 Urine RBC 0-5 /HPF (0-5) 03/08/23 22:20 Urine WBC 6-10 /HPF (0-5) H 03/08/23 22:20 Ur Squamous Epith Cells RARE Squamous (<= Few) 03/08/23 22:20 Urine Bacteria Moderate /HPF (None Seen) H 03/08/23 22:20 Urine Mucus Moderate Strands 03/08/23 22:20 Ur Microscopic Review INDICATED 03/08/23 22:20 Urine Culture Comments INDICATED 03/08/23 22:20 Nasal Adenovirus (PCR) NOT DETECTED 03/08/23 18:50 Nasal B. parapertussis DNA (PCR) NOT DETECTED 03/08/23 18:50 Nasal Coronavir 229E PCR NOT DETECTED 03/08/23 18:50 Nasal Coronavir HKU1 PCR NOT DETECTED 03/08/23 18:50 Nasal Coronavir NL63 PCR NOT DETECTED 03/08/23 18:50 Nasal Coronavir OC43 PCR NOT DETECTED 03/08/23 18:50 Nasal Enterovir/Rhinovir PCR NOT DETECTED 03/08/23 18:50 Nasal Influenza B PCR NOT DETECTED 03/08/23 18:50 Nasal Influenza A PCR NOT DETECTED 03/08/23 18:50 Nasal Parainfluen 1 PCR NOT DETECTED 03/08/23 18:50 Nasal Parainfluen 2 PCR NOT DETECTED 03/08/23 18:50 Nasal Parainfluen 3 PCR NOT DETECTED 03/08/23 18:50 Nasal Parainfluen 4 PCR NOT DETECTED 03/08/23 18:50 Nasal RSV (PCR) NOT DETECTED 03/08/23 18:50 Nasal B.pertussis DNA PCR NOT DETECTED 03/08/23 18:50 Nasal C.pneumoniae (PCR) NOT DETECTED 03/08/23 18:50 [place] Human Metapneumo PCR NOT DETECTED 03/08/23 18:50 Nasal M.pneumoniae (PCR) NOT DETECTED 03/08/23 18:50 Nasal SARS-CoV-2 (PCR) NOT DETECTED 03/08/23 18:50 Salicylates < 1.5 mg/dL 03/08/23 18:47 Urine Opiates Screen NEGATIVE (NEGATIVE) 03/08/23 22:20 Ur Oxycodone Screen NEGATIVE (NEGATIVE) 03/08/23 22:20 Urine Methadone Screen NEGATIVE (NEGATIVE) 03/08/23 22:20 Ur Propoxyphene Screen NEGATIVE (NEGATIVE) 03/08/23 22:20 Acetaminophen 5.3 ug/mL 03/08/23 18:47 Ur Barbiturates Screen NEGATIVE (NEGATIVE) 03/08/23 22:20 Ur Tricyclics Screen POSITIVE (NEGATIVE) H 03/08/23 22:20 Ur Phencyclidine Scrn NEGATIVE (NEGATIVE) 03/08/23 22:20 Ur Amphetamine Screen POSITIVE (NEGATIVE) H 03/08/23 22:20 U Methamphetamines Scrn POSITIVE (NEGATIVE) H 03/08/23 22:20 U Benzodiazepines Scrn NEGATIVE (NEGATIVE) 03/08/23 22:20 Urine Cocaine Screen NEGATIVE (NEGATIVE) 03/08/23 22:20 U Cannabinoids Screen NEGATIVE (NEGATIVE) 03/08/23 22:20 Ethyl Alcohol < 10.0 mg/dL 03/08/23 18:47 - Procedures Procedures: Procedures EXCISION OF CECUM, ENDO (11/09/15) RESECTION OF GALLBLADDER, PERCUTANEOUS ENDOSCOPIC APPROACH (10/21/17) ABX Reporting Has patient been on IV antibiotics over the past 48 hours?: Yes
[2023-03-09] MEDS: INSULIN LISPRO 300 UNIT/3 ML PEN SUBQ SCH ×4 (08:54→21:05)
--- NOTE | 2023-03-09 09:15 | PHARMACY PROGRESS NOTE ---
- Best Possible Medication History Admit Date and Time: 03/08/23 7286 Processed by: Pharmacy Medication History completed: Yes Patient Interview: Pt unable to participate Secondary Source(s): Other family member, Pharmacy records, Insurance records As the person ultimately responsible for medication therapy, providers are able to order a medication from an existing home medication list in [facility] via the "Reconcile Routine" prior to Confirmation of that medication by business support professional. Such practice is discouraged except when the physician, in their clinical judgment, deems that a medical need exists for a medication without regard to previous use.
[2023-03-09] MEDS ORDERED: MAGNESIUM SULFATE 2 GRAM 2 GM/50 ML BAG IV ONE (10:09)
--- NOTE | 2023-03-09 10:22 | HISTORY & PHYSICAL EXAMINATION ---
Chief Complaint - Chief Complaint Chief Complaint: THIS IS A CORRECTION TO THE SAVED CODE STATUS: DNR removed, per DPOA today History - Past Medical History Cardiovascular: reports: Hypertension Respiratory: reports: Asthma, Shortness of breath Neuro: reports: None Endocrine/Autoimmune: reports: Type 2 diabetes GI: reports: GERD, Colon polyps, Chronic constipation, Other [employer]: reports: Other () : reports: Incontinence, Frequency HEENT: reports: None Psych: reports: Anxiety, Panic attacks Musculoskeletal: reports: Other Derm: reports: None MRSA Hx?: Yes - Past Surgical History General: reports: Appendectomy, Colonoscopy Ortho: reports: Hip replacement - Family & Social History Family History: Other family: Diabetes, Type 2, Hypertension Family History Comment/Other: She never knew her father so does not know anything about them. Mom in her 70s of complications of Parkinson's and renal failure. 2 siblings have . 1 of cancer, and the other one she was not close to and does not know what her sister of. Her remaining siblings do have high blood pressure, diabetes, thyroid, heart disease. 4 children. 1 in an accident at the age of 17. 1 daughter has problems with alcoholism is in a 1 year rehab facility. Living Situation: Alone Social History Notes: Never smoked. Does not drink. Has no history of alcohol abuse and says "1 alcoholic in the family is enough". She has been for decades. She said she was from him longer than she was to him. On Social Security disability for decades now because of back pain and hip pain. No history of recreational substance abuse. - Substance History Use: Uses substance without health or social issues: NONE Meds/Allgy - Home Medications Home Medications: Ambulatory Orders Medication Instructions Recorded Confirmed Albuterol Sulfate [Proair 1 puffs INH Q4H PRN 11/09/15 03/09/23 Respiclick] Atorvastatin Calcium [Lipitor] 80 mg PO QPM 01/06/23 03/09/23 Cyclobenzaprine [Flexeril] 10 mg PO TID PRN 01/06/23 03/09/23 Metoprolol Succinate [Toprol Xl] 25 mg PO DAILY 01/06/23 03/09/23 Pregabalin [Lyrica] 150 mg PO BID 01/06/23 03/09/23 lisinopriL [Lisinopril] 10 mg PO QPM 01/06/23 03/09/23 Amitriptyline [Elavil] 10 mg PO HS #30 tablet 01/14/23 03/09/23 oxyBUTYnin chloride [Oxybutynin 15 mg PO DAILY 01/30/23 03/09/23 Chloride ER] Ipratropium/Albuterol [Duoneb] 3 ml INH Q6H #120 ml 01/31/23 03/09/23 - Allergies Allergies/Adverse Reactions: Allergies Allergy/AdvReac Type Severity Reaction Status Date / Time morphine Allergy Severe Rash Verified 01/30/23 08:01 Penicillins Allergy Intermediate Rash Verified 01/30/23 08:01 Exam - Vital Signs Vital Signs: Vital Signs x48h Temp Pulse Resp BP Pulse Ox O2 Flow Rate 03/09/23 07:57 36.9 C 20 93/53 L 1 03/09/23 07:18 1 03/09/23 06:22 39.3 C H 03/09/23 06:21 39.3 C H 03/09/23 04:26 37.8 C 114 H 20 122/93 H 95 1 Conclusion/Plan - Problem List (1) Sepsis Qualifiers: Sepsis type: sepsis due to unspecified organism Sepsis acute organ dysfunction status: with acute organ dysfunction Severe sepsis acute organ dysfunction type: acute renal failure Acute renal failure type: unspecified Severe sepsis shock status: without septic shock Qualified Code(s): A41.9 - Sepsis, unspecified organism; R65.20 - Severe sepsis without septic shock; N17.9 - Acute kidney failure, unspecified (2) UTI (urinary tract infection) Qualifiers: Urinary tract infection type: site unspecified Hematuria presence: without hematuria Qualified Code(s): N39.0 - Urinary tract infection, site not s pecified - Lab Results Fish Bones: 03/09/23 05:30 03/09/23 05:30
[2023-03-09] MEDS: IPRATROPIUM/ALBUTEROL 3 ML NEB INH PRN (11:03)
[2023-03-09 11:05] LABS: MUDS CUTOFF CONCENTRATIONS CUTOFF CONC BELOW:
[2023-03-09 11:16] LABS: AMPHETAMINE SCREEN,URINE POSITIVE (NEGATIVE); BARBITURATE SCREEN,UR NEGATIVE (NEGATIVE); BENZODIAZEPINES SCREEN, URINE NEGATIVE (NEGATIVE); COCAINE SCREEN URINE NEGATIVE (NEGATIVE); METHADONE SCREEN, URINE NEGATIVE (NEGATIVE); METHAMPHETAMINES SCREEN, URINE POSITIVE (NEGATIVE); OPIATE SCREEN, URINE NEGATIVE (NEGATIVE); OXYCODONE SCREEN, URINE NEGATIVE (NEGATIVE); PROPOXYPHENE SCREEN, URINE NEGATIVE (NEGATIVE); THC CANNABINOID SCREEN, URINE NEGATIVE (NEGATIVE); TRICYCLIC ANTIDEPRESSANT,URINE POSITIVE (NEGATIVE)
[2023-03-09 11:28] LABS: ESTIMATED AVERAGE GLUCOSE 123 mg/dL (70-100); HEMOGLOBIN A1c% 5.9 % (4.27-6.07)
[2023-03-09] MEDS: PREGABALIN 100 MG CAPSULE PO SCH ×2 (11:43→20:35)
[2023-03-09] MEDS: PREGABALIN 25 MG CAPSULE PO SCH ×2 (11:44→20:35)
--- NOTE | 2023-03-09 12:12 | CT Report ---
PROCEDURE: CT abdomen pelvis without contrast INDICATIONS: Recurrent UTI suspect stone pyelonephritis TECHNIQUE: Helical axial CT of the abdomen and pelvis was obtained without intravenous contrast and reformatted in multiple planes. Radiation dose reduction was achieved utilizing automated exposure co ntrol or adjustment of mA and/or kV according to patient size. COMPARISON: 01/05/2023 FINDINGS: Lower thorax: Bibasilar atelectasis and or infiltrate Liver: Normal in size and attenuation. No contour deformity present. Biliary system: No calcified cholelithiasis or pericholecystic inflammation. No evidence of bile du ct dilatation. Pancreas: Unremarkable without mass or inflammation evident. Spleen: Normal in size and density. Adrenals: Normal morphology and density. Reproductive system: Hysterectomy Urinary system: Normal renal size and attenuation. Nonobstructing left renal calcification is stable . No hydronephrosis bilaterally. Straight catheter noted in the urethra or vaginal vault. Air in blad jonah may be related to recent instrumentation. Gastrointestinal system: The bowel appears unremarkable with no evidence of bowel obstruction or inf lammation. The stomach appears unremarkable. There is now fluid distention of the colon and mild calvin colonic inflammatory change of the descending colon. No obstruction or abscess present. Appendix: No findings to suggest acute appendicitis. Peritoneal spaces: No mesenteric or retroperitoneal adenopathy. No free air. No free fluid. Vasculature: The IVC, aorta and iliac vasculature are unremarkable. Abdominal Wall: Periumbilical ventral hernia contains fat without bowel involvement Musculoskeletal: Bilateral hip prosthesis limits assessment of several images in the pelvis IMPRESSION: Colitis without abscess or obstruction. Fluid distention and mild pericolonic inflammatory change not ed in the left colon near the hepatic flexure. Loza catheter noted in the distal urethra. Urinary bladder is decompressed. Consider catheter reposi tioning Reviewed by: Micah Greenfield MD on 03/09/2023 11:10 AM [email or web address] Approved by: Micah Greenfield MD on 03/09/2023 11:10 AM AKDT Station ID: [id number]
[2023-03-09] MEDS: SACCHAROMYCES BOULARDII 250 MG CAPSULE PO SCH ×2 (16:54→17:43)
[2023-03-09] MEDS: AMITRIPTYLINE 10 MG TABLET PO SCH (20:35)
[2023-03-09] MEDS: cefTRIAXone 1 GM in SODIUM CHLORIDE 0.9% MINIBAG 100 ML IV SCH (20:54)
[2023-03-10 05:13] LABS: BASOPHILS # (AUTO) 0.1 10^3/uL (0.0-0.1); BASOPHILS % (AUTO) 0.5 %; EOSINOPHILS # (AUTO) 0.3 10^3/uL (0.0-0.7); HCT - HEMATOCRIT 26.6 % (37.0-47.0); HGB - HEMOGLOBIN 7.9 g/dL (12.0-16.0); LYMPHOCYTES # (AUTO) 2.4 10^3/uL (1.5-3.5); LYMPHOCYTES % (AUTO) 24.7 %; MEAN CORPUSCULAR HEMOGLOBIN 26.9 pg (27.0-31.0); MEAN CORPUSCULAR HGB CONC 29.7 g/dL (32.0-36.0); MEAN CORPUSCULAR VOLUME 90.5 fL (81.0-99.0); MEAN PLATELET VOLUME 13.8 fL (7.9-10.8); MONOCYTES # (AUTO) 0.8 10^3/uL (0.0-1.0); MONOCYTES % (AUTO) 8.4 %; NEUTROPHILS % (AUTO) 63.1 %; PLT - PLATELET COUNT 106 10^3/uL (130-450); RED BLOOD COUNT 2.94 10^6/uL (4.20-5.40); RED CELL DISTRIBUTION WIDTH 16.7 % (12.0-15.0); WHITE BLOOD COUNT 9.6 x10^3/uL (4.8-10.8)
[2023-03-10 05:34] LABS: CALCIUM 9.4 mg/dL (8.5-10.3); CREATININE 1.5 mg/dL (0.6-1.3); MAGNESIUM 1.7 mg/dL (1.7-2.3); POTASSIUM 4.1 mmol/L (3.5-4.5)
[2023-03-10] MEDS: SODIUM CHLORIDE FLUSH 0.9% 10 ML SYRINGE IVP SCH ×3 (06:35→19:37)
[2023-03-10] MEDS: SODIUM CHLORIDE 0.9% 1,000 ML IV SCH ×2 (08:28→19:37)
[2023-03-10] MEDS: INSULIN LISPRO 300 UNIT/3 ML PEN SUBQ SCH (09:09)
[2023-03-10] MEDS: SACCHAROMYCES BOULARDII 250 MG CAPSULE PO SCH ×2 (09:10→17:18)
[2023-03-10] MEDS: PREGABALIN 25 MG CAPSULE PO SCH ×2 (09:10→20:53)
[2023-03-10] MEDS: CYCLOBENZAPRINE 10 MG TABLET PO PRN (09:10)
[2023-03-10] MEDS: SOLIFENACIN SUCCINATE 5 MG TABLET PO SCH (09:10)
[2023-03-10] MEDS: PREGABALIN 100 MG CAPSULE PO SCH ×2 (09:10→20:53)
[2023-03-10] MEDS: ACETAMINOPHEN 325 MG TABLET PO PRN (09:10)
--- NOTE | 2023-03-10 10:09 | PROVIDER PROGRESS NOTE ---
Assessment/Plan - Problem List (1) UTI due to Klebsiella species Assessment/Plan: Many bacteria and high WBC on UA. The urine cx is growing Klebsiella The abdomen/pelvis CT imaging did show a persistent renal stone, seen on prior CT scans. Plan: Await urine sens and and blood culture results to tailor antibiotics Continue with empiric IV ceftriaxone Cont probiotics (2) Kidney stone Assessment/Plan: CT scan done yesterday did confirm that she has a kidney stone. I am concerned that this is the nidus of her recurrent UTIs which she had 2 months ago then 1 months ago and now currently Plan: Urology consult has been ordered (3) Cough Assessment/Plan: She has an increasing cough, as she becomes more more awake, that sounds like croup. She tested negative for parainfluenza virus at admission 48 hrs ago Plan: Sputum culture ordered Will get CXR PA and Lat (4) Acute kidney injury Assessment/Plan: She presented with a creatinine of 4.0. This is likely due to dehydration and rhabdo. All labs were reviewed and te creat is declining daily, is 2.9 today Plan: Continue IV fluids Avoid nephrotoxins Follow BUN/creatinine daily (5) Rhabdomyolysis Assessment/Plan: Probably from laying for prolonged period of time. She has had this before Plan: Continue with IV fluids Follow CK daily (6) Hypomagnesemia Assessment/Plan: Likely from severely diminished oral intake for the last few days; family repo rted that when she got home from SNF 4 days previously, she immediately started to decline w/ less oral intake and became more weak. All labs reviewed and she still has low Mg after replacement yesterday Plan: Replace with magnesium IV rider Follow magnesium daily (7) Encephalopathy Assessment/Plan: IMPROVING Family reported that when she got home from SNF 4 days ago, she immediately started to decline w/ less oral intake and became more weak and sleepy. This is multifactorial: Probably from the sepsis and UTI but also from meth withdrawal causing hypersomnolence Plan: Social work consult will be requested regarding her meth use, when she is medically cleared. I suspect she may need more caregivers at home going forward and I have discussed this with the son Ruben, her DPOA PT and OT evaluations to be done today (8) Methamphetamine abuse Assessment/Plan: Her chart says there was no history of substance abuse. On this adm her tox screen shows positive meth as well as tricyclic's (she is on Amitriptyline) I spoke to the DPOA's significant other Lupe, outside the patient's room. Lupe said that the patient admitted to them she used meth 2 months ago but denied she used it recently. Lupe and the pt's son Ruben the DPOA have asked that her tox screen be retested to see if it is true or a lab error. The [facility] toxicology screen was repeated and has same result with (+) meth. I asked the pt where she is getting meth into her body and she said she "has no idea". I discussed the (new) positive meth finding with her son Ruben, the DPOA. He said he "thinks he knows where it is coming from". Currently the patient lives alone. Plan: Symptomatic treatment during her probable current withdrawal from meth, she was hypersomnolent, then awakens irritable. Social work consult regarding substance abuse will be requested, when she is awake and able to interact more, and medically cleared (9) History of essential hypertension Assessment/Plan: The patient presented hypotensive. She has received aggressive IV crystalloid replacement. Her blood pressure is now normal She carries a history of hypertension. I reviewed her EMR. The patient was unable to tolerate Norvasc because it caused headaches and side effect of leg edema Plan: We will resume blood pressure meds when appropriate, when the list is reconciled, no longer to use Norvasc (10) Morbid obesity with BMI of 40.0-44.9, adult Assessment/Plan: This complicates all her care (11) Sepsis Qualifiers: Sepsis type: sepsis due to unspecified organism Sepsis acute organ dysfunction status: with acute organ dysfunction Severe sepsis acute organ dysfunction type: acute renal failure Acute renal failure type: unspecified Severe sepsis shock status: without septic shock Assessment/Plan: A UTI is the source. She had elevated WBC 17, tachycardia HR 104, low BP 70/40, altered mental status and BREANNA creat 4. These are all improving (labs were all reviewed) Her last UTI grew claire-sens E coli Plan: Await urine culture and blood cultures to tailor antibiotics Continue with empiric IV ceftriaxone Follow WBC daily Continue gentle IV fluids - Current Meds Current Meds: Current Medications Generic Name Dose Route Start Last Admin Trade Name Freq PRN Reason Stop Dose Admin Acetaminophen 650 mg 03/09/23 06:45 03/10/23 09:10 Acetaminophen 325 Mg Tablet PO 650 mg Q4HR PRN Administration Pain or Fever > 38C (100.4F) Albuterol/Ipratropium 3 ml 03/09/23 10:28 03/09/23 11:03 Ipratropium/Albuterol 3 Ml Neb INH 3 ml Q6H PRN Administration Wheezing Amitriptyline HCl 10 mg 03/09/23 21:00 03/09/23 20:35 Amitriptyline 10 Mg Tablet PO 10 mg HS LESLEE Administration Cyclobenzaprine HCl 10 mg 03/09/23 10:28 03/10/23 09:10 Cyclobenzaprine 10 Mg Tablet PO 10 mg TID PRN Administration Spasms Sodium Chloride 1,000 mls @ 100 mls/hr 03/08/23 23:00 03/10/23 08:28 Normal Saline 0.9% IV 100 mls/hr .Q10H LESLEE Administration Ceftriaxone Sodium 1 gm/ 100 mls @ 200 mls/hr 03/09/23 21:00 03/09/23 22:03 Sodium Chloride IV Infused Q24H LESLEE Infusion Pregabalin 100 mg 03/09/23 11:00 03/10/23 09:10 Pregabalin 100 Mg Capsule PO 100 mg BID LESLEE Administration Pregabalin 50 mg 03/09/23 11:00 03/10/23 09:10 Pregabalin 25 Mg Capsule PO 50 mg BID LESLEE Administration Saccharomyces Boulardii 250 mg 03/09/23 17:00 03/10/23 09:10 Saccharomyces Boulardii 250 Mg Capsule PO 250 mg BIDWM LESLEE Administration Sodium Chloride 10 ml 03/09/23 01:00 03/10/23 09:10 Sodium Chloride Flush 0.9% 10 Ml Syringe IVP 10 ml 0100,0900,1700 LESLEE Administration Solifenacin 10 mg 03/10/23 09:00 03/10/23 09:10 Solifenacin Succinate 5 Mg Tablet PO 10 mg DAILY LESLEE Administration - Lab Result Fish Bone Diagrams: 03/10/23 04:31 03/10/23 04:31 - Additional Planning My Orders: My Active Orders 03/09/23 10:28 Cyclobenzaprine [Flexeril] 10 mg PO TID PRN Ipratropium/Albuterol [Duoneb] 3 ml INH Q6H PRN 03/09/23 10:30 Nebulizer/MDI Tx. [RC] QID 03/09/23 11:00 Pregabalin [Lyrica] 100 mg PO BID Pregabalin [Lyrica] 50 mg PO BID 03/09/23 Dinner DIET [Soft Mechanical Diet] [DIET] 03/09/23 17:00 Saccharomyces Boulardii [Florastor] 250 mg PO BIDWM 03/09/23 21:00 Amitriptyline [Elavil] 10 mg PO HS 03/10/23 Consult [Urology Consult] [CONS] Routine 03/10/23 09:00 Solifenacin Succinate [Vesicare] 10 mg PO DAILY 03/11/23 05:00 BMP - BASIC METABOLIC PANEL [CHEM] DAILYLAB CBC - COMP BLD CT W/AUTO DIFF [HEME] DAILYLAB CK- CREATINE KINASE [CHEM] DAILYLAB MAGNESIUM [CHEM] DAILYLAB 03/12/23 05:00 BMP - BASIC METABOLIC PANEL [CHEM] DAILYLAB CBC - COMP BLD CT W/AUTO DIFF [HEME] DAILYLAB CK- CREATINE KINASE [CHEM] DAILYLAB MAGNESIUM [CHEM] DAILYLAB 03/13/23 05:00 BMP - BASIC METABOLIC PANEL [CHEM] DAILYLAB CBC - COMP BLD CT W/AUTO DIFF [HEME] DAILYLAB MAGNESIUM [CHEM] DAILYLAB Subjective - Subjective Nursing Reports: Other (More awake and alert and communicative but falls back asleep napping most of the day) Objective Vital Signs: Vital Signs - 24 hr 03/09/23 03/09/23 03/09/23 11:06 13:32 16:00 Temperature 39 C H 37.8 C Heart Rate 78 Heart Rate [ 109 H 102 H Brachial] Respiratory 16 24 20 Rate Blood Pressure 112/40 L [Right Brachial artery] Blood Pressure 85/67 L [Right Radial artery] O2 Saturation 93 96 If not protocol 1 1 1 : Oxygen Flow, liters/minute 03/09/23 03/09/23 03/09/23 16:18 21:00 23:43 Temperature 37.3 C 36.8 C 37.7 C Heart Rate Heart Rate [ 100 98 105 H Brachial] Respiratory 20 20 Rate Blood Pressure 131/51 H [Right Brachial artery] Blood Pressure 102/50 L 92/69 [Right Radial artery] O2 Saturation 94 92 If not protocol : Oxygen Flow, liters/minute 03/10/23 07:52 Temperature 36.3 C L Heart Rate Heart Rate [ 98 Brachial] Respiratory 20 Rate Blood Pressure 127/44 L [Right Brachial artery] Blood Pressure [Right Radial artery] O2 Saturation 92 If not protocol : Oxygen Flow, liters/minute Oxygen O2 Source Room air I&O (Last 24 Hrs): Intake and Output Totals x24h 03/08/23 03/09/23 03/10/23 23:59 23:59 23:59 Intake Total 1000 5503.334 1063.333 Output Total 50 1275 2700 Balance 950 4228.334 -1636.667 General: Alert, Oriented x3 HEENT: Mucous membr. moist/pink, Other (Disheveled, has skin tear R caodaism area) Neck: Supple Neuro: Alert, Non Focal, Other (Lethargic) Cardiovascular: No murmurs (Distant heart sounds due to obesity) Respiratory: No respiratory distress, Other (Poor air movement in all lung mancini but no wheezes or rales) Abdomen: Soft, Other (Obese with pannus) Genitourinary: Other (Has Loza) Extremities: No clubbing, No edema - Results Results: Laboratory Results WBC 9.6 x10^3/uL (4.8-10.8) 03/10/23 04:31 RBC 2.94 10^6/uL (4.20-5.40) L 03/10/23 04:31 Hgb 7.9 g/dL (12.0-16.0) L 03/10/23 04:31 Hct 26.6 % (37.0-47.0) L 03/10/23 04:31 MCV 90.5 fL (81.0-99.0) 03/10/23 04:31 MCH 26.9 pg (27.0-31.0) L 03/10/23 04:31 MCHC 29.7 g/dL (32.0-36.0) L 03/10/23 04:31 RDW 16.7 % (12.0-15.0) H 03/10/23 04:31 Plt Count 106 10^3/uL (130-450) L 03/10/23 04:31 MPV 13.8 fL (7.9-10.8) H 03/10/23 04:31 Neut # (Auto) 6.0 10^3/uL (1.5-6.6) 03/10/23 04:31 Lymph # (Auto) 2.4 10^3/uL (1.5-3.5) 03/10/23 04:31 [place] # (Auto) 0.8 10^3/uL (0.0-1.0) 03/10/23 04:31 Eos # (Auto) 0.3 10^3/uL (0.0-0.7) 03/10/23 04:31 Baso # (Auto) 0.1 10^3/uL (0.0-0.1) 03/10/23 04:31 Absolute Nucleated RBC 0.00 x10^3/uL 03/10/23 04:31 Total Counted 100 03/08/23 18:47 Band Neuts % (Manual) 3 % (0-10) 03/08/23 18:47 Abnorm Lymph % (Manual) 0 % 03/08/23 18:47 Nucleated RBC % 0.0 /100WBC 03/10/23 04:31 Neutrophils # (Manual) 13.2 10^3/uL (1.5-6.6) H 03/08/23 18:47 Lymphocytes # (Manual) 1.7 10^3/uL (1.5-3.5) 03/08/23 18:47 Monocytes # (Manual) 2.1 10^3/uL (0.0-1.0) H 03/08/23 18:47 Eosinophils # (Manual) 0.0 10^3/uL (0-0.7) 03/08/23 18:47 Basophils # (Manual) 0.2 10^3/uL (0-0.1) H 03/08/23 18:47 Differential Comment MANUAL DIFFERENTIAL 03/08/23 18:47 Platelet Estimate NORMAL (130-450,000) (NORMAL) 03/08/23 18:47 Platelet Morphology NORMAL APPEARANCE (NORMAL) 03/08/23 18:47 RBC Morph Micro Appear 1+ ANISOCYTOSIS (NORMAL) 1+ POLYCHROMASIA (NORMAL) 03/08/23 18:47 RBC Morph Micro Appear 1+ ANISOCYTOSIS (NORMAL) 1+ POLYCHROMASIA (NORMAL) 03/08/23 18:47 VBG pH 7.411 (7.31-7.41) H 03/08/23 18:47 VBG pCO2 38.3 mmHg (41-51) L 03/08/23 18:47 VBG pO2 25.0 mmHg (25-47) 03/08/23 18:47 VBG HCO3 23.8 mmol/L (23-28) 03/08/23 18:47 VBG Total CO2 25.0 mmol/L (24-29) 03/08/23 18:47 VBG O2 Saturation 49.4 % (60-80) L 03/08/23 18:47 VBG Base Excess -0.6 mmol/L (-2 - +2) 03/08/23 18:47 Sodium 140 mmol/L (135-145) 03/10/23 04:31 Potassium 4.1 mmol/L (3.5-4.5) 03/10/23 04:31 Chloride 114 mmol/L (101-111) H 03/10/23 04:31 Carbon Dioxide 23 mmol/L (21-32) 03/10/23 04:31 Anion Gap 3.0 (6-13) L 03/10/23 04:31 BUN 17 mg/dL (6-20) 03/10/23 04:31 Creatinine 1.5 mg/dL (0.6-1.3) H 03/10/23 04:31 Estimated GFR (MDRD) 35 (>89) L 03/10/23 04:31 Glucose 102 mg/dL (74-104) 03/10/23 04:31 POC Whole Bld Glucose 93 mg/dL (70 - 100) 03/10/23 07:46 Estimat Average Glucose 123 mg/dL (70-100) H 03/09/23 08:17 Hemoglobin A1c % 5.9 % (4.27-6.07) 03/09/23 08:17 Lactic Acid 1.8 mmol/L (0.5-2.2) 03/09/23 05:30 Calcium 9.4 mg/dL (8.5-10.3) 03/10/23 04:31 Magnesium 1.7 mg/dL (1.7-2.3) 03/10/23 04:31 Total Bilirubin 0.5 mg/dL (0.2-1.0) 03/08/23 18:47 AST 39 IU/L (10-42) 03/08/23 18:47 ALT 37 IU/L (10-60) 03/08/23 18:47 Alkaline Phosphatase 79 IU/L (42-121) 03/08/23 18:47 Total Creatine Kinase 568 IU/L (30-223) H 03/10/23 04:31 Total Protein 6.4 g/dL (6.4-8.9) 03/08/23 18:47 Albumin 3.9 g/dL (3.2-5.5) 03/08/23 18:47 Globulin 2.5 g/dL (2.1-4.2) 03/08/23 18:47 Albumin/Globulin Ratio 1.6 (1.0-2.2) 03/08/23 18:47 Lipase 9 U/L (11-82) L 03/08/23 18:47 TSH 2.35 uIU/mL (0.34-5.60) 03/08/23 18:47 Urine Color YELLOW 03/08/23 22:20 Urine Clarity HAZY (CLEAR) 03/08/23 22:20 Urine pH 5.0 PH (5.0-7.5) 03/08/23 22:20 Ur Specific Rescue 1.015 (1.002-1.030) 03/08/23 22:20 Urine Protein TRACE mg/dL (NEGATIVE) 03/08/23 22:20 Urine Glucose (UA) NEGATIVE mg/dL (NEGATIVE) 03/08/23 22:20 Urine Ketones NEGATIVE mg/dL (NEGATIVE) 03/08/23 22:20 Urine Occult Blood NEGATIVE (NEGATIVE) 03/08/23 22:20 Urine Nitrite NEGATIVE (NEGATIVE) 03/08/23 22:20 Urine Bilirubin NEGATIVE (NEGATIVE) 03/08/23 22:20 Urine Urobilinogen 0.2 (NORMAL) E.U./dL (NORMAL) 03/08/23 22:20 Ur Leukocyte Esterase TRACE (NEGATIVE) H 03/08/23 22:20 Urine RBC 0-5 /HPF (0-5) 03/08/23 22:20 Urine WBC 6-10 /HPF (0-5) H 03/08/23 22:20 Ur Squamous Epith Cells RARE Squamous (<= Few) 03/08/23 22:20 Urine Bacteria Moderate /HPF (None Seen) H 03/08/23 22:20 Urine Mucus Moderate Strands 03/08/23 22:20 Ur Microscopic Review INDICATED 03/08/23 22:20 Urine Culture Comments INDICATED 03/08/23 22:20 Nasal Adenovirus (PCR) NOT DETECTED 03/08/23 18:50 Nasal B. parapertussis DNA (PCR) NOT DETECTED 03/08/23 18:50 Nasal Coronavir 229E PCR NOT DETECTED 03/08/23 18:50 Nasal Coronavir HKU1 PCR NOT DETECTED 03/08/23 18:50 Nasal Coronavir NL63 PCR NOT DETECTED 03/08/23 18:50 Nasal Coronavir OC43 PCR NOT DETECTED 03/08/23 18:50 Nasal Enterovir/Rhinovir PCR NOT DETECTED 03/08/23 18:50 Nasal Influenza B PCR NOT DETECTED 03/08/23 18:50 Nasal Influenza A PCR NOT DETECTED 03/08/23 18:50 Nasal Parainfluen 1 PCR NOT DETECTED 03/08/23 18:50 Nasal Parainfluen 2 PCR NOT DETECTED 03/08/23 18:50 Nasal Parainfluen 3 PCR NOT DETECTED 03/08/23 18:50 Nasal Parainfluen 4 PCR NOT DETECTED 03/08/23 18:50 Nasal RSV (PCR) NOT DETECTED 03/08/23 18:50 Nasal B.pertussis DNA PCR NOT DETECTED 03/08/23 18:50 Nasal C.pneumoniae (PCR) NOT DETECTED 03/08/23 18:50 [place] Human Metapneumo PCR NOT DETECTED 03/08/23 18:50 Nasal M.pneumoniae (PCR) NOT DETECTED 03/08/23 18:50 Nasal SARS-CoV-2 (PCR) NOT DETECTED 03/08/23 18:50 Salicylates < 1.5 mg/dL 03/08/23 18:47 Urine Opiates Screen NEGATIVE (NEGATIVE) 03/09/23 10:55 Ur Oxycodone Screen NEGATIVE (NEGATIVE) 03/09/23 10:55 Urine Methadone Screen NEGATIVE (NEGATIVE) 03/09/23 10:55 Ur Propoxyphene Screen NEGATIVE (NEGATIVE) 03/09/23 10:55 Acetaminophen 5.3 ug/mL 03/08/23 18:47 Ur Barbiturates Screen NEGATIVE (NEGATIVE) 03/09/23 10:55 Ur Tricyclics Screen POSITIVE (NEGATIVE) H 03/09/23 10:55 Ur Phencyclidine Scrn NEGATIVE (NEGATIVE) 03/09/23 10:55 Ur Amphetamine Screen POSITIVE (NEGATIVE) H 03/09/23 10:55 U Methamphetamines Scrn POSITIVE (NEGATIVE) H 03/09/23 10:55 U Benzodiazepines Scrn NEGATIVE (NEGATIVE) 03/09/23 10:55 Urine Cocaine Screen NEGATIVE (NEGATIVE) 03/09/23 10:55 U Cannabinoids Screen NEGATIVE (NEGATIVE) 03/09/23 10:55 Ethyl Alcohol < 10.0 mg/dL 03/08/23 18:47 - Procedures Procedures: Procedures EXCISION OF CECUM, ENDO (11/09/15) RESECTION OF GALLBLADDER, PERCUTANEOUS ENDOSCOPIC APPROACH (10/21/17)
--- NOTE | 2023-03-10 10:16 | CONSULTATION NOTE ---
Referring Provider Name of Referring Provider:: Breann Consult Date: 03/10/23 Chief Complaint - Chief Complaint Chief Complaint: UTI History of Present Illness - Admitted From Admitted From:: Hospital - History Obtained From Records Reviewed: Hospital History obtained from: Records, patient - History of Present Illness HPI Comment/Other: Judi is a morbidly obese, diabetic 67yo F with recent hx of UTI, now admitted again with a UTI. She had a CT Scan which showed a non obstructing left renal stone. She has a hx of stones treated in [place] per her many years ago. Denies current flank pain. 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 Mom in her 70s of complications of Parkinson's and renal failure. 2 siblings have . 1 of cancer, and the other one she was not close to and does not know what her sister of. Her remaining siblings do have high blood pressure, diabetes, thyroid, heart disease. 4 children. 1 in an accident at the age of 17. 1 daughter has problems with alcoholism is in a 1 year rehab facility. Living Situation: Alone Social History Notes: Never smoked. Does not drink. Has no history of alcohol abuse and says "1 alcoholic in the family is enough". She has been for decades. She said she was from him longer than she was to him. On Social Security disability for decades now because of back pain and hip pain. No history of recreational substance abuse. - Substance History Use: Uses substance without health or social issues: NONE - POLST Patient has POLST: No POLST Status: DNR (Daughter is in the room when mom says she wants to be DNR, DNI) Meds/Allgy - Home Medications Home Medications: Ambulatory Orders Medication Instructions Recorded Confirmed Albuterol Sulfate [Proair 1 puffs INH Q4H PRN 11/09/15 03/09/23 Respiclick] Atorvastatin Calcium [Lipitor] 80 mg PO QPM 01/06/23 03/09/23 Cyclobenzaprine [Flexeril] 10 mg PO TID PRN 01/06/23 03/09/23 Metoprolol Succinate [Toprol Xl] 25 mg PO DAILY 01/06/23 03/09/23 Pregabalin [Lyrica] 150 mg PO BID 01/06/23 03/09/23 lisinopriL [Lisinopril] 10 mg PO QPM 01/06/23 03/09/23 Amitriptyline [Elavil] 10 mg PO HS #30 tablet 01/14/23 03/09/23 oxyBUTYnin chloride [Oxybutynin 15 mg PO DAILY 01/30/23 03/09/23 Chloride ER] Ipratropium/Albuterol [Duoneb] 3 ml INH Q6H #120 ml 01/31/23 03/09/23 - Allergies Allergies/Adverse Reactions: Allergies Allergy/AdvReac Type Severity Reaction Status Date / Time morphine Allergy Severe Rash Verified 01/30/23 08:01 Penicillins Allergy Intermediate Rash Verified 01/30/23 08:01 Exam - Vital Signs Vital Signs: Vital Signs x48h Temp Pulse Resp BP Pulse Ox 03/10/23 07:52 36.3 C L 98 20 127/44 L 92 Conclusion and Plan - Lab Results Microbiology Results 03/08/23 22:20 Urine,Catheterized Urine Culture - Final Klebsiella Pneumoniae Laboratory Results 03/10/23 07:46: POC Whole Bld Glucose 93 03/10/23 04:31: Sodium 140, Potassium 4.1, Chloride 114 H, Carbon Dioxide 23, Anion Gap 3.0 L, BUN 17, Creatinine 1.5 H, Estimated GFR (MDRD) 35 L, Glucose 102, Calcium 9.4, Magnesium 1.7, Total Creatine Kinase 568 H 03/10/23 04:31: WBC 9.6, RBC 2.94 L, Hgb 7.9 L, Hct 26.6 L, MCV 90.5, MCH 26.9 L, MCHC 29.7 L, RDW 16.7 H, Plt Count 106 L, MPV 13.8 H, Neut # (Auto) 6.0, Lymph # (Auto) 2.4, [place] # (Auto) 0.8, Eos # (Auto) 0.3, Baso # (Auto) 0.1, Absolute Nucleated RBC 0.00, Nucleated RBC % 0.0 03/09/23 21:00: POC Whole Bld Glucose 109 H 03/09/23 16:43: POC Whole Bld Glucose 106 H 03/09/23 11:46: POC Whole Bld Glucose 136 H 03/09/23 10:55: Urine Opiates Screen NEGATIVE, Ur Oxycodone Screen NEGATIVE, Urine Methadone Screen NEGATIVE, Ur Propoxyphene Screen NEGATIVE, Ur Barbiturates Screen NEGATIVE, Ur Tricyclics Screen POSITIVE H, Ur Phencyclidine Scrn NEGATIVE, Ur Amphetamine Screen POSITIVE H, U Methamphetamines Scrn POSITIVE H, U Benzodiazepines Scrn NEGATIVE, Urine Cocaine Screen NEGATIVE, U Cannabinoids Screen NEGATIVE 03/09/23 08:17: Estimat Average Glucose 123 H, Hemoglobin A1c % 5.9 03/09/23 08:01: POC Whole Bld Glucose 116 H 03/09/23 05:30: Magnesium 1.4 L 03/09/23 05:30: Sodium 137, Potassium 3.9, Chloride 109, Carbon Dioxide 21, Anion Gap 7.0, BUN 24 H, Creatinine 2.9 H, Estimated GFR (MDRD) 16 L, Glucose 122 H, Calcium 9.7, Total Creatine Kinase 582 H 03/09/23 05:30: WBC 10.4, RBC 3.55 L, Hgb 9.5 L, Hct 32.4 L, MCV 91.3, MCH 26.8 L, MCHC 29.3 L, RDW 16.4 H, Plt Count 123 L, MPV 13.0 H, Neut # (Auto) 7.2 H, Ly mph # (Auto) 2.0, [place] # (Auto) 1.1 H, Eos # (Auto) 0.2, Baso # (Auto) 0.1, Absolute Nucleated RBC 0.00, Nucleated RBC % 0.0 03/09/23 05:30: Lactic Acid 1.8 03/08/23 22:20: Urine Color YELLOW, Urine Clarity HAZY, Urine pH 5.0, Ur Specific [place] 1.015, Urine Protein TRACE, Urine Glucose (UA) NEGATIVE, Urine Ketones NEGATIVE, Urine Occult Blood NEGATIVE, Urine Nitrite NEGATIVE, Urine Bilirubin NEGATIVE, Urine Urobilinogen 0.2 (NORMAL), Ur Leukocyte Esterase TRACE H, Urine RBC 0-5, Urine WBC 6-10 H, Ur Squamous Epith Cells RARE Squamous, Urine Bacteria Moderate H, Urine Mucus Moderate Strands, Ur Microscopic Review INDICATED, Urine Culture Comments INDICATED, Urine Opiates Screen NEGATIVE, Ur Oxycodone Screen NEGATIVE, Urine Methadone Screen NEGATIVE, Ur Propoxyphene Screen NEGATIVE, Ur Barbiturates Screen NEGATIVE, Ur Tricyclics Screen POSITIVE H, Ur Phencyclidine Scrn NEGATIVE, Ur Amphetamine Screen POSITIVE H, U Methamphetamines Scrn POSITIVE H, U Benzodiazepines Scrn NEGATIVE, Urine Cocaine Screen NEGATIVE, U Cannabinoids Screen NEGATIVE 03/08/23 18:50: Nasal Adenovirus (PCR) NOT DETECTED, Nasal B. parapertussis DNA (PCR) NOT DETECTED, Nasal Coronavir 229E PCR NOT DETECTED, Nasal Coronavir HKU1 PCR NOT DETECTED, Nasal Coronavir NL63 PCR NOT DETECTED, Nasal Coronavir OC43 PCR NOT DETECTED, Nasal Enterovir/Rhinovir PCR NOT DETECTED, Nasal Influenza B PCR NOT DETECTED, Nasal Influenza A PCR NOT DETECTED, Nasal Parainfluen 1 PCR NOT DETECTED, Nasal Parainfluen 2 PCR NOT DETECTED, Nasal Parainfluen 3 PCR NOT DETECTED, Nasal Parainfluen 4 PCR NOT DETECTED, Nasal RSV (PCR) NOT DETECTED, Nasal B.pertussis DNA PCR NOT DETECTED, Nasal C.pneumoniae (PCR) NOT DETECTED, [place] Human Metapneumo PCR NOT DETECTED, Nasal M.pneumoniae (PCR) NOT DETECTED, Nasal SARS-CoV-2 (PCR) NOT DETECTED 03/08/23 18:47: Lactic Acid 1.9 03/08/23 18:47: VBG pH 7.411 H, VBG pCO2 38.3 L, VBG pO2 25.0, VBG HCO3 23.8, VBG Total CO2 25.0, VBG O2 Saturation 49.4 L, VBG Base Excess -0.6 03/08/23 18:47: Sodium 134 L, Potassium 4.1, Chloride 100 L, Carbon Dioxide 25, Anion Gap 9.0, BUN 26 H, Creatinine 4.0 H, Estimated GFR (MDRD) 11 L, Glucose 181 H, Calcium 11.3 H, Magnesium 1.0 L*, Total Bilirubin 0.5, AST 39, ALT 37, Alkaline Phosphatase 79, Total Creatine Kinase 743 H, Total Protein 6.4, Albumin 3.9, Globulin 2.5, Albumin/Globulin Ratio 1.6, Lipase 9 L, TSH 2.35, Salicylates < 1.5, Acetaminophen 5.3, Ethyl Alcohol < 10.0 03/08/23 18:47: WBC 17.1 H, RBC 3.56 L, Hgb 9.6 L, Hct 31.1 L, MCV 87.4, MCH 27.0, MCHC 30.9 L, RDW 16.0 H, Plt Count 150, MPV 13.8 H, Neut # (Auto) Not Reportable, Lymph # (Auto) Not Reportable, [place] # (Auto) Not Reportable, Eos # (Auto) Not Reportable, Baso # (Auto) Not Reportable, Absolute Nucleated RBC Not Reportable, Total Counted 100, Band Neuts % (Manual) 3, Abnorm Lymph % (Manual) 0, Nucleated RBC % Not Reportable, Neutrophils # (Manual) 13.2 H, Lymphocytes # (Manual) 1.7, Monocytes # (Manual) 2.1 H, Eosinophils # (Manual) 0.0, Basophils # (Manual) 0.2 H, Differential Comment MANUAL DIFFERENTIAL, Platelet Estimate NORMAL (130-450,000), Platelet Morphology NORMAL APPEARANCE, RBC Morph Micro Appear 1+ POLYCHROMASIA 03/08/23 18:31: POC Whole Bld Glucose 165 H - Diagnosis Diagnosis: UTI - Consultation Note Consultation Note: 67yo F with DM, obesity, concern for methamphetamine abuse, with two separate infectious UTIs (different species). Has a kidney stone which as been present and stable since at least 2010. - Plan Plan: No acute intervention Followup with as an outpatient
--- NOTE | 2023-03-10 16:50 | XRAY Report ---
PROCEDURE: Chest 2 View X-Ray INDICATIONS: Coupy cough TECHNIQUE: 2 views of the chest were acquired. COMPARISON: 03/08/2023 FINDINGS: Surgical changes and devices: None. Lungs and pleura: No pleural effusions or pneumothorax. Lungs are clear. Mediastinum: Mediastinal contours appear normal. Heart size is normal. Bones and chest wall: No suspicious bony lesions. Overlying soft tissues appear unremarkable. IMPRESSION: No acute process. Reviewed by: Moreno Herrera MD on 03/10/2023 4:49 PM PDT Approved by: Moreno Herrera MD on 03/10/2023 4:49 PM PDT Station ID: [id number]
[2023-03-10] MEDS: cefTRIAXone 1 GM in SODIUM CHLORIDE 0.9% MINIBAG 100 ML IV SCH (20:51)
[2023-03-10] MEDS: AMITRIPTYLINE 10 MG TABLET PO SCH (20:53)
[2023-03-10] MEDS ORDERED: CALCIUM CARBONATE CHEW 500 MG TABLET PO PRN (22:09)
[2023-03-11] MEDS: SODIUM CHLORIDE FLUSH 0.9% 10 ML SYRINGE IVP SCH ×3 (00:04→17:02)
[2023-03-11 05:19] LABS: BASOPHILS # (AUTO) 0.1 10^3/uL (0.0-0.1); BASOPHILS % (AUTO) 0.8 %; EOSINOPHILS # (AUTO) 0.3 10^3/uL (0.0-0.7); HCT - HEMATOCRIT 26.5 % (37.0-47.0); HGB - HEMOGLOBIN 8.2 g/dL (12.0-16.0); LYMPHOCYTES # (AUTO) 1.8 10^3/uL (1.5-3.5); LYMPHOCYTES % (AUTO) 27.5 %; MEAN CORPUSCULAR HEMOGLOBIN 27.3 pg (27.0-31.0); MEAN CORPUSCULAR HGB CONC 30.9 g/dL (32.0-36.0); MEAN CORPUSCULAR VOLUME 88.3 fL (81.0-99.0); MEAN PLATELET VOLUME 13.6 fL (7.9-10.8); MONOCYTES # (AUTO) 0.5 10^3/uL (0.0-1.0); MONOCYTES % (AUTO) 7.8 %; NEUTROPHILS # (AUTO) 3.7 10^3/uL (1.5-6.6); NEUTROPHILS % (AUTO) 58.4 %; PLT - PLATELET COUNT 100 10^3/uL (130-450); RED CELL DISTRIBUTION WIDTH 16.1 % (12.0-15.0); WHITE BLOOD COUNT 6.4 x10^3/uL (4.8-10.8)
[2023-03-11 05:37] LABS: CALCIUM 9.7 mg/dL (8.5-10.3); CREATININE 0.9 mg/dL (0.6-1.3); MAGNESIUM 1.5 mg/dL (1.7-2.3)
[2023-03-11] MEDS: SODIUM CHLORIDE 0.9% 1,000 ML IV SCH ×2 (05:41→14:28)
[2023-03-11] MEDS ORDERED: PANTOPRAZOLE 40 MG TABLET PO STA (08:31)
[2023-03-11] MEDS: IPRATROPIUM/ALBUTEROL 3 ML NEB INH PRN (08:54)
[2023-03-11] MEDS: SOLIFENACIN SUCCINATE 5 MG TABLET PO SCH (09:34)
[2023-03-11] MEDS: SACCHAROMYCES BOULARDII 250 MG CAPSULE PO SCH ×2 (09:34→17:02)
[2023-03-11] MEDS: PREGABALIN 25 MG CAPSULE PO SCH ×2 (09:34→20:35)
[2023-03-11] MEDS: PREGABALIN 100 MG CAPSULE PO SCH ×2 (09:35→20:35)
[2023-03-11] MEDS: CYCLOBENZAPRINE 10 MG TABLET PO PRN ×2 (12:14→20:36)
[2023-03-11] MEDS: MAGNESIUM OXIDE 400 MG TABLET PO SCH (12:14)
[2023-03-11] MEDS: guaiFENesin 600 MG TABLET PO SCH ×2 (15:07→20:35)
[2023-03-11] MEDS: ACETAMINOPHEN 325 MG TABLET PO PRN (17:02)
--- NOTE | 2023-03-11 17:40 | PROVIDER PROGRESS NOTE ---
Assessment/Plan - Problem List (1) UTI due to Klebsiella species Assessment/Plan: She had abn UA at admision. The urine cx is growing Klebsiella The abdomen/pelvis CT imaging did show a persistent renal stone in the parenchyma of the kidney, seen on prior CT scans. Plan: Change IV ceftriaxone to oral Cipro. Plan a 7 day total course of antibx Cont probiotics (2) Kidney stone Assessment/Plan: CT scan did confirm that she has a kidney stone in the parenchyma of the kidney. I was concerned that this is the nidus of her recurrent UTIs which she had 2 months ago then 1 months ago and now currently Urology consult done by Dr Jacobs and he wrote that no Inpt special order is needed, to see him as an oupt Plan: Outpatient urology will be advised because of the presence of the stone and recurrent UTI and today we learned she is incontinent of urine and unaware of that (3) Cough Assessment/Plan: She has a wet, rattly cough, that sounds like croup. She tested negative for parainfluenza virus at admission CXR PA and Lat was repeated and showed no acute pulm disease Plan: Sputum culture ordered, if she makes sputum I will order Mucinex twice daily for expectorant, since this is probably bronchitis (4) Acute kidney injury Assessment/Plan: She presented with a creatinine of 4.0. This is likely due to dehydration and rhabdo. All labs were reviewed and te creat is declining daily, is normal at 0.9 today Plan: I will taper her IV fluids to off Avoid nephrotoxins Follow BUN/creatinine daily (5) Rhabdomyolysis Assessment/Plan: RESOLVED Probably from laying for prolonged period of time. She has had this before Plan: Stop daily CK labs I will taper her IV fluids to off (6) Hypomagnesemia Assessment/Plan: Likely from severely diminished oral intake for the last few days; family reported that when she got home from SNF 4 days previously, she immediately started to decline w/ less oral intake and became more weak. All labs reviewed and she still has low Mg after replacement yesterday Plan: Replace with magnesium IV rider Follow magnesium daily (7) Encephalopathy Assessment/Plan: RESOLVED Family reported that when she got home from SNF 4 days ago, she immediately started to decline w/ less oral intake and became more weak and sleepy. This was multifactorial: Probably from the sepsis and UTI but also from uremia and the meth withdrawal causing hypersomnolence Plan: Social work consult will be requested regarding her meth use,can be done today. I suspect she may need more caregivers at home going forward and I have discussed this with the son Ruben, her DPOA PT and OT to work with her. She may need rehab at a SNF again (8) Methamphetamine abuse Assessment/Plan: Her chart says there was no history of substance abuse. On this adm her tox screen shows positive meth as well as tricyclic's (she is on Amitriptyline) I spoke to the DPOA's significant other Lupe, who said that the patient admitted to them she used meth 2 months ago but denied she used it recently. Her tox screen was retested to see if she had a lab error. The repeat [facility] toxicology screen was (+) for meth. I asked the pt where she is getting meth into her body and she said she "has no idea". I discussed the (new) positive meth finding with her son Ruben, the DPOA. He said he "thinks he knows where it is coming from". SW descibed that patient lives alone in a trailer that has broken floor and rats. Plan: Social work consult will be requested regarding her meth use,can be done today. (9) History of essential hypertension Assessment/Plan: The patient presented hypotensive. She has received aggressive IV crystalloid replacement. Her blood pressure is now normal She carries a history of hypertension. I reviewed her EMR. The patient was unable to tolerate Norvasc because it caused headaches and side effect of leg edema Plan: We will resume blood pressure meds when appropriate, but when the list is reconciled, no longer to use Norvasc (as tghe 10 mg dose gave her severe leg e zeinab) (10) Morbid obesity with BMI of 40.0-44.9, adult Assessment/Plan: This complicates all her care (11) Sepsis Qualifiers: Sepsis type: sepsis due to unspecified organism Sepsis acute organ dysfunction status: with acute organ dysfunction Severe sepsis acute organ dysfunction type: acute renal failure Acute renal failure type: unspecified Severe sepsis shock status: without septic shock Assessment/Plan: RESOLVED - Current Meds Current Meds: Current Medications Generic Name Dose Route Start Last Admin Trade Name Freq PRN Reason Stop Dose Admin Acetaminophen 650 mg 03/09/23 06:45 03/11/23 17:02 Acetaminophen 325 Mg Tablet PO 650 mg Q4HR PRN Administration Pain or Fever > 38C (100.4F) Albuterol/Ipratropium 3 ml 03/09/23 10:28 03/11/23 08:54 Ipratropium/Albuterol 3 Ml Neb INH 3 ml Q6H PRN Administration Wheezing Amitriptyline HCl 10 mg 03/09/23 21:00 03/10/23 20:53 Amitriptyline 10 Mg Tablet PO 10 mg HS LESLEE Administration Calcium Carbonate/Glycine 500 mg 03/10/23 22:09 03/10/23 22:39 Calcium Carbonate Chew 500 Mg Tablet PO 500 mg BID PRN Administration Heartburn Cyclobenzaprine HCl 10 mg 03/09/23 10:28 03/11/23 12:14 Cyclobenzaprine 10 Mg Tablet PO 10 mg TID PRN Administration Spasms Guaifenesin 600 mg 03/11/23 15:00 03/11/23 15:07 Guaifenesin 600 Mg Tablet PO 600 mg BID LESLEE Administration Sodium Chloride 1,000 mls @ 100 mls/hr 03/08/23 23:00 03/11/23 14:28 Normal Saline 0.9% IV 100 mls/hr .Q10H LESLEE Administration Ceftriaxone Sodium 1 gm/ 100 mls @ 200 mls/hr 03/09/23 21:00 03/10/23 21:21 Sodium Chloride IV Infused Q24H LESLEE Infusion Magnesium Oxide 400 mg 03/11/23 12:00 03/11/23 12:14 Magnesium Oxide 400 Mg Tablet PO 400 mg DAILYWM LESLEE Administration Pregabalin 100 mg 03/09/23 11:00 03/11/23 09:35 Pregabalin 100 Mg Capsule PO 100 mg BID LESLEE Administration Pregabalin 50 mg 03/09/23 11:00 03/11/23 09:34 Pregabalin 25 Mg Capsule PO 50 mg BID LESLEE Administration Saccharomyces Boulardii 250 mg 03/09/23 17:00 03/11/23 17:02 Saccharomyces Boulardii 250 Mg Capsule PO 250 mg BIDWM LESLEE Administration Sodium Chloride 10 ml 03/09/23 01:00 03/11/23 17:02 Sodium Chloride Flush 0.9% 10 Ml Syringe IVP 10 ml 0100,0900,1700 LESLEE Administration Solifenacin 10 mg 03/10/23 09:00 03/11/23 09:34 Solifenacin Succinate 5 Mg Tablet PO 10 mg DAILY LESLEE Administration - Lab Result Fish Bone Diagrams: 03/11/23 04:51 03/11/23 04:51 - Additional Planning My Orders: My Active Orders 03/11/23 Evaluate and Treat OT [OT] Routine 03/11/23 12:00 Magnesium Oxide [Mag Ox] 400 mg PO DAILYWM 03/11/23 15:00 guaiFENesin [Mucinex] 600 mg PO BID 03/12/23 05:00 BMP - BASIC METABOLIC PANEL [CHEM] DAILYLAB CBC - COMP BLD CT W/AUTO DIFF [HEME] DAILYLAB MAGNESIUM [CHEM] DAILYLAB 03/12/23 07:00 Pantoprazole [Protonix] 40 mg PO QDAC 03/13/23 05:00 BMP - BASIC METABOLIC PANEL [CHEM] DAILYLAB CBC - COMP BLD CT W/AUTO DIFF [HEME] DAILYLAB MAGNESIUM [CHEM] DAILYLAB Subjective - Subjective Patient Reports: Feeling Better (She is up in a chair, able to walk several st eps, communicating normally. She cries easily when she is in distress, pain or nervous.) Objective Vital Signs: Vital Signs - 24 hr 03/10/23 03/11/23 03/11/23 23:53 07:55 08:55 Temperature 36.9 C 36.7 C Heart Rate 90 Heart Rate [ 92 Brachial] Heart Rate [ 91 Radial] Respiratory 18 18 22 Rate Blood Pressure 146/52 H [Left Brachial artery] Blood Pressure 148/59 H [Right Radial artery] O2 Saturation 92 93 03/11/23 16:00 Temperature 36.8 C Heart Rate Heart Rate [ 94 Brachial] Heart Rate [ Radial] Respiratory 16 Rate Blood Pressure 147/57 H [Left Brachial artery] Blood Pressure [Right Radial artery] O2 Saturation 95 Oxygen O2 Source Room air I&O (Last 24 Hrs): Intake and Output Totals x24h 03/09/23 03/10/23 03/11/23 23:59 23:59 23:59 Intake Total 5503.334 3597.666 2040.000 Output Total 1275 4400 2400 Balance 4228.334 -802.334 -360.000 General: Alert, Oriented x3 HEENT: Mucous membr. moist/pink, Other (Disheveled) Neck: Supple Neuro: Alert, Non Focal Cardiovascular: Regular rate Respiratory: Breath sounds nml, Other (Tachypneic from just walking 3 steps) Abdomen: Soft, Other (Obese) Extremities: No clubbing, Other (1+ pretibial edema) - Results Results: Laboratory Results WBC 6.4 x10^3/uL (4.8-10.8) 03/11/23 04:51 RBC 3.00 10^6/uL (4.20-5.40) L 03/11/23 04:51 Hgb 8.2 g/dL (12.0-16.0) L 03/11/23 04:51 Hct 26.5 % (37.0-47.0) L 03/11/23 04:51 MCV 88.3 fL (81.0-99.0) 03/11/23 04:51 MCH 27.3 pg (27.0-31.0) 03/11/23 04:51 MCHC 30.9 g/dL (32.0-36.0) L 03/11/23 04:51 RDW 16.1 % (12.0-15.0) H 03/11/23 04:51 Plt Count 100 10^3/uL (130-450) L 03/11/23 04:51 MPV 13.6 fL (7.9-10.8) H 03/11/23 04:51 Neut # (Auto) 3.7 10^3/uL (1.5-6.6) 03/11/23 04:51 Lymph # (Auto) 1.8 10^3/uL (1.5-3.5) 03/11/23 04:51 [place] # (Auto) 0.5 10^3/uL (0.0-1.0) 03/11/23 04:51 Eos # (Auto) 0.3 10^3/uL (0.0-0.7) 03/11/23 04:51 Baso # (Auto) 0.1 10^3/uL (0.0-0.1) 03/11/23 04:51 Absolute Nucleated RBC 0.00 x10^3/uL 03/11/23 04:51 Total Counted 100 03/08/23 18:47 Band Neuts % (Manual) 3 % (0-10) 03/08/23 18:47 Abnorm Lymph % (Manual) 0 % 03/08/23 18:47 Nucleated RBC % 0.0 /100WBC 03/11/23 04:51 Neutrophils # (Manual) 13.2 10^3/uL (1.5-6.6) H 03/08/23 18:47 Lymphocytes # (Manual) 1.7 10^3/uL (1.5-3.5) 03/08/23 18:47 Monocytes # (Manual) 2.1 10^3/uL (0.0-1.0) H 03/08/23 18:47 Eosinophils # (Manual) 0.0 10^3/uL (0-0.7) 03/08/23 18:47 Basophils # (Manual) 0.2 10^3/uL (0-0.1) H 03/08/23 18:47 Differential Comment MANUAL DIFFERENTIAL 03/08/23 18:47 Platelet Estimate NORMAL (130-450,000) (NORMAL) 03/08/23 18:47 Platelet Morphology NORMAL APPEARANCE (NORMAL) 03/08/23 18:47 RBC Morph Micro Appear 1+ ANISOCYTOSIS (NORMAL) 1+ POLYCHROMASIA (NORMAL) 03/08/23 18:47 RBC Morph Micro Appear 1+ ANISOCYTOSIS (NORMAL) 1+ POLYCHROMASIA (NORMAL) 03/08/23 18:47 VBG pH 7.411 (7.31-7.41) H 03/08/23 18:47 VBG pCO2 38.3 mmHg (41-51) L 03/08/23 18:47 VBG pO2 25.0 mmHg (25-47) 03/08/23 18:47 VBG HCO3 23.8 mmol/L (23-28) 03/08/23 18:47 VBG Total CO2 25.0 mmol/L (24-29) 03/08/23 18:47 VBG O2 Saturation 49.4 % (60-80) L 03/08/23 18:47 VBG Base Excess -0.6 mmol/L (-2 - +2) 03/08/23 18:47 Sodium 141 mmol/L (135-145) 03/11/23 04:51 Potassium 4.0 mmol/L (3.5-4.5) 03/11/23 04:51 Chloride 113 mmol/L (101-111) H 03/11/23 04:51 Carbon Dioxide 24 mmol/L (21-32) 03/11/23 04:51 Anion Gap 4.0 (6-13) L 03/11/23 04:51 BUN 8 mg/dL (6-20) 03/11/23 04:51 Creatinine 0.9 mg/dL (0.6-1.3) 03/11/23 04:51 Estimated GFR (MDRD) 63 (>89) L 03/11/23 04:51 Glucose 92 mg/dL (74-104) 03/11/23 04:51 POC Whole Bld Glucose 93 mg/dL (70 - 100) 03/10/23 20:56 Estimat Average Glucose 123 mg/dL (70-100) H 03/09/23 08:17 Hemoglobin A1c % 5.9 % (4.27-6.07) 03/09/23 08:17 Lactic Acid 1.8 mmol/L (0.5-2.2) 03/09/23 05:30 Calcium 9.7 mg/dL (8.5-10.3) 03/11/23 04:51 Magnesium 1.5 mg/dL (1.7-2.3) L 03/11/23 04:51 Total Bilirubin 0.5 mg/dL (0.2-1.0) 03/08/23 18:47 AST 39 IU/L (10-42) 03/08/23 18:47 ALT 37 IU/L (10-60) 03/08/23 18:47 Alkaline Phosphatase 79 IU/L (42-121) 03/08/23 18:47 Total Creatine Kinase 191 IU/L (30-223) 03/11/23 04:51 Total Protein 6.4 g/dL (6.4-8.9) 03/08/23 18:47 Albumin 3.9 g/dL (3.2-5.5) 03/08/23 18:47 Globulin 2.5 g/dL (2.1-4.2) 03/08/23 18:47 Albumin/Globulin Ratio 1.6 (1.0-2.2) 03/08/23 18:47 Lipase 9 U/L (11-82) L 03/08/23 18:47 TSH 2.35 uIU/mL (0.34-5.60) 03/08/23 18:47 Urine Color YELLOW 03/08/23 22:20 Urine Clarity HAZY (CLEAR) 03/08/23 22:20 Urine pH 5.0 PH (5.0-7.5) 03/08/23 22:20 Ur Specific [place] 1.015 (1.002-1.030) 03/08/23 22:20 Urine Protein TRACE mg/dL (NEGATIVE) 03/08/23 22:20 Urine Glucose (UA) NEGATIVE mg/dL (NEGATIVE) 03/08/23 22:20 Urine Ketones NEGATIVE mg/dL (NEGATIVE) 03/08/23 22:20 Urine Occult Blood NEGATIVE (NEGATIVE) 03/08/23 22:20 Urine Nitrite NEGATIVE (NEGATIVE) 03/08/23 22:20 Urine Bilirubin NEGATIVE (NEGATIVE) 03/08/23 22:20 Urine Urobilinogen 0.2 (NORMAL) E.U./dL (NORMAL) 03/08/23 22:20 Ur Leukocyte Esterase TRACE (NEGATIVE) H 03/08/23 22:20 Urine RBC 0-5 /HPF (0-5) 03/08/23 22:20 Urine WBC 6-10 /HPF (0-5) H 03/08/23 22:20 Ur Squamous Epith Cells RARE Squamous (<= Few) 03/08/23 22:20 Urine Bacteria Moderate /HPF (None Seen) H 03/08/23 22:20 Urine Mucus Moderate Strands 03/08/23 22:20 Ur Microscopic Review INDICATED 03/08/23 22:20 Urine Culture Comments INDICATED 03/08/23 22:20 Nasal Adenovirus (PCR) NOT DETECTED 03/08/23 18:50 Nasal B. parapertussis DNA (PCR) NOT DETECTED 03/08/23 18:50 Nasal Coronavir 229E PCR NOT DETECTED 03/08/23 18:50 Nasal Coronavir HKU1 PCR NOT DETECTED 03/08/23 18:50 Nasal Coronavir NL63 PCR NOT DETECTED 03/08/23 18:50 Nasal Coronavir OC43 PCR NOT DETECTED 03/08/23 18:50 Nasal Enterovir/Rhinovir PCR NOT DETECTED 03/08/23 18:50 Nasal Influenza B PCR NOT DETECTED 03/08/23 18:50 Nasal Influenza A PCR NOT DETECTED 03/08/23 18:50 Nasal Parainfluen 1 PCR NOT DETECTED 03/08/23 18:50 Nasal Parainfluen 2 PCR NOT DETECTED 03/08/23 18:50 Nasal Parainfluen 3 PCR NOT DETECTED 03/08/23 18:50 Nasal Parainfluen 4 PCR NOT DETECTED 03/08/23 18:50 Nasal RSV (PCR) NOT DETECTED 03/08/23 18:50 Nasal B.pertussis DNA PCR NOT DETECTED 03/08/23 18:50 Nasal C.pneumoniae (PCR) NOT DETECTED 03/08/23 18:50 [place] Human Metapneumo PCR NOT DETECTED 03/08/23 18:50 Nasal M.pneumoniae (PCR) NOT DETECTED 03/08/23 18:50 Nasal SARS-CoV-2 (PCR) NOT DETECTED 03/08/23 18:50 Stl C. diff Tox B Gene NEGATIVE (NEGATIVE) 03/10/23 08:45 Salicylates < 1.5 mg/dL 03/08/23 18:47 Urine Opiates Screen NEGATIVE (NEGATIVE) 03/09/23 10:55 Ur Oxycodone Screen NEGATIVE (NEGATIVE) 03/09/23 10:55 Urine Methadone Screen NEGATIVE (NEGATIVE) 03/09/23 10:55 Ur Propoxyphene Screen NEGATIVE (NEGATIVE) 03/09/23 10:55 Acetaminophen 5.3 ug/mL 03/08/23 18:47 Ur Barbiturates Screen NEGATIVE (NEGATIVE) 03/09/23 10:55 Ur Tricyclics Screen POSITIVE (NEGATIVE) H 03/09/23 10:55 Ur Phencyclidine Scrn NEGATIVE (NEGATIVE) 03/09/23 10:55 Ur Amphetamine Screen POSITIVE (NEGATIVE) H 03/09/23 10:55 U Methamphetamines Scrn POSITIVE (NEGATIVE) H 03/09/23 10:55 U Benzodiazepines Scrn NEGATIVE (NEGATIVE) 03/09/23 10:55 Urine Cocaine Screen NEGATIVE (NEGATIVE) 03/09/23 10:55 U Cannabinoids Screen NEGATIVE (NEGATIVE) 03/09/23 10:55 Ethyl Alcohol < 10.0 mg/dL 03/08/23 18:47 - Procedures Procedures: Procedures EXCISION OF CECUM, ENDO (11/09/15) RESECTION OF GALLBLADDER, PERCUTANEOUS ENDOSCOPIC APPROACH (10/21/17)
[2023-03-11] MEDS ORDERED: SODIUM CHLORIDE 0.9% 1,000 ML IV SCH (17:41)
[2023-03-11] MEDS: CIPROFLOXACIN 250 MG TABLET PO SCH (20:35)
[2023-03-11] MEDS: AMITRIPTYLINE 10 MG TABLET PO SCH (20:36)
[2023-03-12 05:16] LABS: BASOPHILS # (AUTO) 0.1 10^3/uL (0.0-0.1); BASOPHILS % (AUTO) 1.4 %; EOSINOPHILS # (AUTO) 0.3 10^3/uL (0.0-0.7); EOSINOPHILS % (AUTO) 5.7 %; HCT - HEMATOCRIT 28.2 % (37.0-47.0); HGB - HEMOGLOBIN 8.7 g/dL (12.0-16.0); LYMPHOCYTES # (AUTO) 1.6 10^3/uL (1.5-3.5); LYMPHOCYTES % (AUTO) 30.9 %; MEAN CORPUSCULAR HEMOGLOBIN 26.9 pg (27.0-31.0); MEAN CORPUSCULAR HGB CONC 30.9 g/dL (32.0-36.0); MEAN PLATELET VOLUME 13.7 fL (7.9-10.8); MONOCYTES # (AUTO) 0.5 10^3/uL (0.0-1.0); MONOCYTES % (AUTO) 9.8 %; NEUTROPHILS # (AUTO) 2.6 10^3/uL (1.5-6.6); NEUTROPHILS % (AUTO) 51.4 %; PLT - PLATELET COUNT 116 10^3/uL (130-450); RED BLOOD COUNT 3.24 10^6/uL (4.20-5.40); WHITE BLOOD COUNT 5.1 x10^3/uL (4.8-10.8)
[2023-03-12 05:28] LABS: CALCIUM 10.2 mg/dL (8.5-10.3); CREATININE 0.9 mg/dL (0.6-1.3); MAGNESIUM 1.3 mg/dL (1.7-2.3); POTASSIUM 3.9 mmol/L (3.5-4.5)
[2023-03-12] MEDS: PANTOPRAZOLE 40 MG TABLET PO SCH (06:02)
[2023-03-12] MEDS: SODIUM CHLORIDE FLUSH 0.9% 10 ML SYRINGE IVP SCH ×4 (06:02→16:00)
[2023-03-12] MEDS ORDERED: MAGNESIUM SULFATE 2 GRAM 2 GM/50 ML BAG IV ONE (08:23)
[2023-03-12] MEDS: SACCHAROMYCES BOULARDII 250 MG CAPSULE PO SCH ×2 (08:35→15:59)
[2023-03-12] MEDS: guaiFENesin 600 MG TABLET PO SCH ×2 (08:35→21:25)
[2023-03-12] MEDS: CIPROFLOXACIN 250 MG TABLET PO SCH ×2 (08:35→21:25)
[2023-03-12] MEDS: PREGABALIN 25 MG CAPSULE PO SCH ×2 (08:35→21:25)
[2023-03-12] MEDS: SOLIFENACIN SUCCINATE 5 MG TABLET PO SCH (08:35)
[2023-03-12] MEDS: MAGNESIUM OXIDE 400 MG TABLET PO SCH (08:35)
[2023-03-12] MEDS: PREGABALIN 100 MG CAPSULE PO SCH ×2 (08:36→21:25)
--- NOTE | 2023-03-12 14:04 | PROVIDER PROGRESS NOTE ---
Assessment/Plan - Problem List (1) UTI due to Klebsiella species Assessment/Plan: She had abn UA at admision. The urine cx grew Klebsiella The abdomen/pelvis CT imaging did show a persistent renal stone in the parenchyma of the kidney, seen on prior CT scans. Plan: Will change IV ceftriaxone to oral Cipro. Plan a 7 day total course of antibx Cont probiotics (2) Kidney stone Assessment/Plan: CT scan did confirm that she has a kidney stone in the parenchyma of the kidney. I was concerned that this is the nidus of her recurrent UTIs which she had 2 months ago then 1 months ago and now currently Urology consult done by Dr Jacobs and he wrote that no Inpt special management is needed, and to see him as an oupt Plan: Outpatient urology will be advised because of the presence of the stone and recurrent UTI and today we learned she is incontinent of urine and unaware of that (3) Cough Assessment/Plan: She has a wet, rattly cough, that sounds like croup. She tested negative for parainfluenza virus at admission CXR PA and Lat was repeated and showed no acute pulm disease Plan: Sputum culture ordered, but she has made no sputum to send off I will order Mucinex twice daily for expectorant, since this is probably bro nchitis (4) Generalized weakness She has become very weak presumably from 3 hospital stays over 3 mos, however had just got home from a SNF 4 days before this admission. She has been seen by PT and OT, who advised rehab at a SNF. She refuses that. When I asked her today why, she answered "because I want to go home". I pointed out that she liked SNF recently and benefitted from SNF, she said "I want to go home". I then called her son, OSCAR and we discussed this. The son stated that his sister is signing out of her inpatient substance abuse facility and will be living with the patient and will be her caregiver. Plan: I will ask SW to confirm with the daughter Antoinette (son provided latrell cell phone #), that she will be the live-in caregiver, if pt is discharged tomorrow. (5) Hypomagnesemia Assessment/Plan: Likely from severely diminished oral intake for the last few days; family reported that when she got home from SNF 4 days previously, she immediately started to decline w/ less oral intake and became more weak. All labs reviewed and she still has low Mg after replacement yesterday Plan: Replace with magnesium IV rider Follow magnesium daily (6) Methamphetamine abuse Assessment/Plan: Her chart says there was no history of substance abuse. On this adm her tox screen shows positive meth as well as tricyclic's (she is on Amitriptyline) I spoke to the DPOA's significant other Lupe at admission in person, who said that the patient admitted to them she used meth 2 months ago but denied she used it recently. Her tox screen was retested to see if she had a lab error. The repeat [facility] toxicology screen was (+) for meth. I told the son and his SOA this result. I asked the pt where she is getting meth into her body and she said she "has no idea". When I discussed the (new) positive meth finding with her son Ruben, the OSCAR. He said he "thinks he knows where it is coming from" and will dispose of it. TOAN descibed that patient lives alone in a trailer that has broken floor and rats. Today the pt admitted to me she was in fact using meth, because she "had it around the house". Social work consult was requested regarding her meth use, can be done today. Plan: As per SW recommendations (7) History of essential hypertension Assessment/Plan: The patient presented hypotensive. She has received aggressive IV crystalloid replacement. Her blood pressure is now normal She carries a history of hypertension. I reviewed her EMR. The patient was unable to tolerate Norvasc because it caused headaches and side effect of leg edema Plan: We will resume blood pressure meds when appropriate, but when the list is reconciled, no longer to use Norvasc (as the 10 mg dose gave her severe leg edema) (8) Morbid obesity with BMI of 40.0-44.9, adult Assessment/Plan: This complicates all her care (9) Sepsis Qualifiers: Sepsis type: sepsis due to unspecified organism Sepsis acute organ dysfunction status: with acute organ dysfunction Severe sepsis acute organ dysfunction type: acute renal failure Acute renal failure type: unspecified Severe sepsis shock status: without septic shock Assessment/Plan: RESOLVED (10) Encephalopathy Assessment/Plan: RESOLVED Family reported that when she got home from SNF 4 days ago, she immediately started to decline w/ less oral intake and became more weak and sleepy. This was multifactorial: Probably from the sepsis and UTI but also from uremia a nd the meth withdrawal causing hypersomnolence Plan: Social work consult will be requested regarding her meth use,can be done today. I suspect she may need more caregivers at home going forward and I have discussed this with the son Ruben, her DPOA PT and OT to work with her. She may need rehab at a SNF again (11) Rhabdomyolysis Assessment/Plan: RESOLVED Probably from laying for prolonged period of time. She has had this before Plan: Stop daily CK labs I have tapered her IV fluids to off (12) Acute kidney injury Assessment/Plan: RESOLVED She presented with a creatinine of 4.0. This is likely due to dehydration and rhabdo. All labs were reviewed and the creat is declining daily, is normal at 0.9 today Plan: I have tapered her IV fluids to off Avoid nephrotoxins - Current Meds Current Meds: Current Medications Generic Name Dose Route Start Last Admin Trade Name Freq PRN Reason Stop Dose Admin Acetaminophen 650 mg 03/09/23 06:45 03/11/23 17:02 Acetaminophen 325 Mg Tablet PO 650 mg Q4HR PRN Administration Pain or Fever > 38C (100.4F) Albuterol/Ipratropium 3 ml 03/09/23 10:28 03/11/23 08:54 Ipratropium/Albuterol 3 Ml Neb INH 3 ml Q6H PRN Administration Wheezing Amitriptyline HCl 10 mg 03/09/23 21:00 03/11/23 20:36 Amitriptyline 10 Mg Tablet PO 10 mg HS LESLEE Administration Calcium Carbonate/Glycine 500 mg 03/10/23 22:09 03/10/23 22:39 Calcium Carbonate Chew 500 Mg Tablet PO 500 mg BID PRN Administration Heartburn Ciprofloxacin 500 mg 03/11/23 21:00 03/12/23 08:35 Ciprofloxacin 250 Mg Tablet PO 500 mg BID LESLEE Administration Cyclobenzaprine HCl 10 mg 03/09/23 10:28 03/11/23 20:36 Cyclobenzaprine 10 Mg Tablet PO 10 mg TID PRN Administration Spasms Guaifenesin 600 mg 03/11/23 15:00 03/12/23 08:35 Guaifenesin 600 Mg Tablet PO 600 mg BID LESLEE Administration Magnesium Oxide 400 mg 03/11/23 12:00 03/12/23 08:35 Magnesium Oxide 400 Mg Tablet PO 400 mg DAILYWM LESLEE Administration Pantoprazole Sodium 40 mg 03/12/23 07:00 03/12/23 06:02 Pantoprazole 40 Mg Tablet PO 40 mg QDAC LESLEE Administration Pregabalin 100 mg 03/09/23 11:00 03/12/23 08:36 Pregabalin 100 Mg Capsule PO 100 mg BID LESLEE Administration Pregabalin 50 mg 03/09/23 11:00 03/12/23 08:35 Pregabalin 25 Mg Capsule PO 50 mg BID LESLEE Administration Saccharomyces Boulardii 250 mg 03/09/23 17:00 03/12/23 08:35 Saccharomyces Boulardii 250 Mg Capsule PO 250 mg BIDWM LESLEE Administration Sodium Chloride 10 ml 03/09/23 01:00 03/12/23 10:52 Sodium Chloride Flush 0.9% 10 Ml Syringe IVP Not Given 0100,0900,1700 LESLEE Solifenacin 10 mg 03/10/23 09:00 03/12/23 08:35 Solifenacin Succinate 5 Mg Tablet PO 10 mg DAILY LESLEE Administration - Lab Result Fish Bone Diagrams: 03/13/23 04:27 03/13/23 04:27 - Additional Planning My Orders: My Active Orders 03/11/23 15:00 guaiFENesin [Mucinex] 600 mg PO BID 03/11/23 21:00 Ciprofloxacin [Cipro] 500 mg PO BID 03/12/23 Home Health Referral [CONS] Routine 03/12/23 07:00 Pantoprazole [Protonix] 40 mg PO QDAC 03/13/23 05:00 BMP - BASIC METABOLIC PANEL [CHEM] DAILYLAB CBC - COMP BLD CT W/AUTO DIFF [HEME] DAILYLAB MAGNESIUM [CHEM] DAILYLAB Subjective - Subjective Patient Reports: Feeling Better (Prefers to be in bed rather than in chair. Thinks she can go home with no caregivers and does not want to go to a SNF (despite saying she liked SNF rehab).) Objective Vital Signs: Vital Signs - 24 hr 03/11/23 03/11/23 03/12/23 16:00 23:40 07:42 Temperature 36.8 C 36.9 C 36.9 C Heart Rate [ 94 Brachial] Heart Rate [ 82 88 Radial] Respiratory 16 18 18 Rate Blood Pressure 147/57 H [Left Brachial artery] Blood Pressure 150/58 H 160/59 H [Right Radial artery] O2 Saturation 95 92 92 Oxygen O2 Source Room air I&O (Last 24 Hrs): Intake and Output Totals x24h 03/10/23 03/11/23 03/12/23 23:59 23:59 23:59 Intake Total 3597.666 3073.000 1010 Output Total 4400 5400 2075 Balance -802.334 -2327.000 -1065 General: Alert, Oriented x3 HEENT: Mucous membr. moist/pink, Other (Disheveled) Neck: Supple, No JVD Neuro: Alert, Non Focal, Other (Speaks with no eye contact. looking away.) Cardiovascular: Other (Distant heart sounds due to morbid obesity) Respiratory: No respiratory distress Abdomen: Soft, Other (Obese with a pannus) Extremities: Other (1+ edema to mid shins) - Results Results: Laboratory Results WBC 5.1 x10^3/uL (4.8-10.8) 03/12/23 05:06 RBC 3.24 10^6/uL (4.20-5.40) L 03/12/23 05:06 Hgb 8.7 g/dL (12.0-16.0) L 03/12/23 05:06 Hct 28.2 % (37.0-47.0) L 03/12/23 05:06 MCV 87.0 fL (81.0-99.0) 03/12/23 05:06 MCH 26.9 pg (27.0-31.0) L 03/12/23 05:06 MCHC 30.9 g/dL (32.0-36.0) L 03/12/23 05:06 RDW 16.0 % (12.0-15.0) H 03/12/23 05:06 Plt Count 116 10^3/uL (130-450) L 03/12/23 05:06 MPV 13.7 fL (7.9-10.8) H 03/12/23 05:06 Neut # (Auto) 2.6 10^3/uL (1.5-6.6) 03/12/23 05:06 Lymph # (Auto) 1.6 10^3/uL (1.5-3.5) 03/12/23 05:06 [place] # (Auto) 0.5 10^3/uL (0.0-1.0) 03/12/23 05:06 Eos # (Auto) 0.3 10^3/uL (0.0-0.7) 03/12/23 05:06 Baso # (Auto) 0.1 10^3/uL (0.0-0.1) 03/12/23 05:06 Absolute Nucleated RBC 0.00 x10^3/uL 03/12/23 05:06 Total Counted 100 03/08/23 18:47 Band Neuts % (Manual) 3 % (0-10) 03/08/23 18:47 Abnorm Lymph % (Manual) 0 % 03/08/23 18:47 Nucleated RBC % 0.0 /100WBC 03/12/23 05:06 Neutrophils # (Manual) 13.2 10^3/uL (1.5-6.6) H 03/08/23 18:47 Lymphocytes # (Manual) 1.7 10^3/uL (1.5-3.5) 03/08/23 18:47 Monocytes # (Manual) 2.1 10^3/uL (0.0-1.0) H 03/08/23 18:47 Eosinophils # (Manual) 0.0 10^3/uL (0-0.7) 03/08/23 18:47 Basophils # (Manual) 0.2 10^3/uL (0-0.1) H 03/08/23 18:47 Differential Comment MANUAL DIFFERENTIAL 03/08/23 18:47 Platelet Estimate NORMAL (130-450,000) (NORMAL) 03/08/23 18:47 Platelet Morphology NORMAL APPEARANCE (NORMAL) 03/08/23 18:47 RBC Morph Micro Appear 1+ ANISOCYTOSIS (NORMAL) 1+ POLYCHROMASIA (NORMAL) 03/08/23 18:47 RBC Morph Micro Appear 1+ ANISOCYTOSIS (NORMAL) 1+ POLYCHROMASIA (NORMAL) 03/08/23 18:47 VBG pH 7.411 (7.31-7.41) H 03/08/23 18:47 VBG pCO2 38.3 mmHg (41-51) L 03/08/23 18:47 VBG pO2 25.0 mmHg (25-47) 03/08/23 18:47 VBG HCO3 23.8 mmol/L (23-28) 03/08/23 18:47 VBG Total CO2 25.0 mmol/L (24-29) 03/08/23 18:47 VBG O2 Saturation 49.4 % (60-80) L 03/08/23 18:47 VBG Base Excess -0.6 mmol/L (-2 - +2) 03/08/23 18:47 Sodium 142 mmol/L (135-145) 03/12/23 05:06 Potassium 3.9 mmol/L (3.5-4.5) 03/12/23 05:06 Chloride 112 mmol/L (101-111) H 03/12/23 05:06 Carbon Dioxide 25 mmol/L (21-32) 03/12/23 05:06 Anion Gap 5.0 (6-13) L 03/12/23 05:06 BUN 5 mg/dL (6-20) L 03/12/23 05:06 Creatinine 0.9 mg/dL (0.6-1.3) 03/12/23 05:06 Estimated GFR (MDRD) 63 (>89) L 03/12/23 05:06 Glucose 104 mg/dL (74-104) 03/12/23 05:06 POC Whole Bld Glucose 93 mg/dL (70 - 100) 03/10/23 20:56 Estimat Average Glucose 123 mg/dL (70-100) H 03/09/23 08:17 Hemoglobin A1c % 5.9 % (4.27-6.07) 03/09/23 08:17 Lactic Acid 1.8 mmol/L (0.5-2.2) 03/09/23 05:30 Calcium 10.2 mg/dL (8.5-10.3) 03/12/23 05:06 Magnesium 1.3 mg/dL (1.7-2.3) L 03/12/23 05:06 Total Bilirubin 0.5 mg/dL (0.2-1.0) 03/08/23 18:47 AST 39 IU/L (10-42) 03/08/23 18:47 ALT 37 IU/L (10-60) 03/08/23 18:47 Alkaline Phosphatase 79 IU/L (42-121) 03/08/23 18:47 Total Creatine Kinase 191 IU/L (30-223) 03/11/23 04:51 Total Protein 6.4 g/dL (6.4-8.9) 03/08/23 18:47 Albumin 3.9 g/dL (3.2-5.5) 03/08/23 18:47 Globulin 2.5 g/dL (2.1-4.2) 03/08/23 18:47 Albumin/Globulin Ratio 1.6 (1.0-2.2) 03/08/23 18:47 Lipase 9 U/L (11-82) L 03/08/23 18:47 TSH 2.35 uIU/mL (0.34-5.60) 03/08/23 18:47 Urine Color YELLOW 03/08/23 22:20 Urine Clarity HAZY (CLEAR) 03/08/23 22:20 Urine pH 5.0 PH (5.0-7.5) 03/08/23 22:20 Ur Specific [place] 1.015 (1.002-1.030) 03/08/23 22:20 Urine Protein TRACE mg/dL (NEGATIVE) 03/08/23 22:20 Urine Glucose (UA) NEGATIVE mg/dL (NEGATIVE) 03/08/23 22:20 Urine Ketones NEGATIVE mg/dL (NEGATIVE) 03/08/23 22:20 Urine Occult Blood NEGATIVE (NEGATIVE) 03/08/23 22:20 Urine Nitrite NEGATIVE (NEGATIVE) 03/08/23 22:20 Urine Bilirubin NEGATIVE (NEGATIVE) 03/08/23 22:20 Urine Urobilinogen 0.2 (NORMAL) E.U./dL (NORMAL) 03/08/23 22:20 Ur Leukocyte Esterase TRACE (NEGATIVE) H 03/08/23 22:20 Urine RBC 0-5 /HPF (0-5) 03/08/23 22:20 Urine WBC 6-10 /HPF (0-5) H 03/08/23 22:20 Ur Squamous Epith Cells RARE Squamous (<= Few) 03/08/23 22:20 Urine Bacteria Moderate /HPF (None Seen) H 03/08/23 22:20 Urine Mucus Moderate Strands 03/08/23 22:20 Ur Microscopic Review INDICATED 03/08/23 22:20 Urine Culture Comments INDICATED 03/08/23 22:20 Nasal Adenovirus (PCR) NOT DETECTED 03/08/23 18:50 Nasal B. parapertussis DNA (PCR) NOT DETECTED 03/08/23 18:50 Nasal Coronavir 229E PCR NOT DETECTED 03/08/23 18:50 Nasal Coronavir HKU1 PCR NOT DETECTED 03/08/23 18:50 Nasal Coronavir NL63 PCR NOT DETECTED 03/08/23 18:50 Nasal Coronavir OC43 PCR NOT DETECTED 03/08/23 18:50 Nasal Enterovir/Rhinovir PCR NOT DETECTED 03/08/23 18:50 Nasal Influenza B PCR NOT DETECTED 03/08/23 18:50 Nasal Influenza A PCR NOT DETECTED 03/08/23 18:50 Nasal Parainfluen 1 PCR NOT DETECTED 03/08/23 18:50 Nasal Parainfluen 2 PCR NOT DETECTED 03/08/23 18:50 Nasal Parainfluen 3 PCR NOT DETECTED 03/08/23 18:50 Nasal Parainfluen 4 PCR NOT DETECTED 03/08/23 18:50 Nasal RSV (PCR) NOT DETECTED 03/08/23 18:50 Nasal B.pertussis DNA PCR NOT DETECTED 03/08/23 18:50 Nasal C.pneumoniae (PCR) NOT DETECTED 03/08/23 18:50 [place] Human Metapneumo PCR NOT DETECTED 03/08/23 18:50 Nasal M.pneumoniae (PCR) NOT DETECTED 03/08/23 18:50 Nasal SARS-CoV-2 (PCR) NOT DETECTED 03/08/23 18:50 Stl C. diff Tox B Gene NEGATIVE (NEGATIVE) 03/10/23 08:45 Salicylates < 1.5 mg/dL 03/08/23 18:47 Urine Opiates Screen NEGATIVE (NEGATIVE) 03/09/23 10:55 Ur Oxycodone Screen NEGATIVE (NEGATIVE) 03/09/23 10:55 Urine Methadone Screen NEGATIVE (NEGATIVE) 03/09/23 10:55 Ur Propoxyphene Screen NEGATIVE (NEGATIVE) 03/09/23 10:55 Acetaminophen 5.3 ug/mL 03/08/23 18:47 Ur Barbiturates Screen NEGATIVE (NEGATIVE) 03/09/23 10:55 Ur Tricyclics Screen POSITIVE (NEGATIVE) H 03/09/23 10:55 Ur Phencyclidine Scrn NEGATIVE (NEGATIVE) 03/09/23 10:55 Ur Amphetamine Screen POSITIVE (NEGATIVE) H 03/09/23 10:55 U Methamphetamines Scrn POSITIVE (NEGATIVE) H 03/09/23 10:55 U Benzodiazepines Scrn NEGATIVE (NEGATIVE) 03/09/23 10:55 Urine Cocaine Screen NEGATIVE (NEGATIVE) 03/09/23 10:55 U Cannabinoids Screen NEGATIVE (NEGATIVE) 03/09/23 10:55 Ethyl Alcohol < 10.0 mg/dL 03/08/23 18:47 - Procedures Procedures: Procedures EXCISION OF CECUM, ENDO (11/09/15) RESECTION OF GALLBLADDER, PERCUTANEOUS ENDOSCOPIC APPROACH (10/21/17)
[2023-03-12] MEDS: ACETAMINOPHEN 325 MG TABLET PO PRN (15:59)
[2023-03-12] MEDS: AMITRIPTYLINE 10 MG TABLET PO SCH (21:25)
[2023-03-13] MEDS: SODIUM CHLORIDE FLUSH 0.9% 10 ML SYRINGE IVP SCH ×3 (00:37→15:28)
[2023-03-13 05:08] LABS: BASOPHILS # (AUTO) 0.1 10^3/uL (0.0-0.1); BASOPHILS % (AUTO) 1.2 %; EOSINOPHILS # (AUTO) 0.3 10^3/uL (0.0-0.7); EOSINOPHILS % (AUTO) 5.6 %; HCT - HEMATOCRIT 28.8 % (37.0-47.0); HGB - HEMOGLOBIN 8.9 g/dL (12.0-16.0); LYMPHOCYTES % (AUTO) 40.9 %; MEAN CORPUSCULAR HEMOGLOBIN 26.7 pg (27.0-31.0); MEAN CORPUSCULAR HGB CONC 30.9 g/dL (32.0-36.0); MEAN CORPUSCULAR VOLUME 86.5 fL (81.0-99.0); MONOCYTES # (AUTO) 0.6 10^3/uL (0.0-1.0); MONOCYTES % (AUTO) 11.4 %; NEUTROPHILS # (AUTO) 1.9 10^3/uL (1.5-6.6); NEUTROPHILS % (AUTO) 38.9 %; PLT - PLATELET COUNT 126 10^3/uL (130-450); RED BLOOD COUNT 3.33 10^6/uL (4.20-5.40); RED CELL DISTRIBUTION WIDTH 15.9 % (12.0-15.0)
[2023-03-13 05:25] LABS: CALCIUM 10.5 mg/dL (8.5-10.3); CREATININE 0.9 mg/dL (0.6-1.3); MAGNESIUM 1.5 mg/dL (1.7-2.3); POTASSIUM 3.8 mmol/L (3.5-4.5)
[2023-03-13] MEDS: PANTOPRAZOLE 40 MG TABLET PO SCH (06:03)
[2023-03-13] MEDS: MAGNESIUM OXIDE 400 MG TABLET PO SCH (08:19)
[2023-03-13] MEDS: PREGABALIN 100 MG CAPSULE PO SCH (08:19)
[2023-03-13] MEDS: PREGABALIN 25 MG CAPSULE PO SCH (08:19)
[2023-03-13] MEDS: CIPROFLOXACIN 250 MG TABLET PO SCH (08:19)
[2023-03-13] MEDS: SACCHAROMYCES BOULARDII 250 MG CAPSULE PO SCH ×2 (08:19→16:01)
[2023-03-13] MEDS: SOLIFENACIN SUCCINATE 5 MG TABLET PO SCH (08:19)
[2023-03-13] MEDS: guaiFENesin 600 MG TABLET PO SCH (08:19)
--- NOTE | 2023-03-13 08:59 | Discharge Plan ---
Discharge Plan Problem Reviewed?: Yes Disposition: 06 Home Health Service Condition: Fair Prescriptions: Ciprofloxacin [Cipro] 500 mg PO BID #16 tab Saccharomyces Boulardii [Florastor] 250 mg PO DAILY #4 cap Magnesium Oxide [Mag Ox] 400 mg PO DAILY #14 tab guaiFENesin [Mucinex] 600 mg PO BID #14 tab Diet: Low Sodium Activity Restrictions: Activity as Tolerated Shower Restrictions: No Driving Restrictions: Yes Assistance Devices: Walker Weight Bearing: Full Weight Instruction Topics: Kidney Stones Tx Remove, Abuse Meth Abuse and Addiction Health Concerns: You were hospitalized because you had an infection that made you sleepy and weak, and the the source of infection was another urinary tract infection. There is a stone in your kidney which has not moved, so it could be the reason of your repeat infections. You received IV antibiotics and have now been transitioned to antibiotics by mouth. A new prescription for Cipro has been electronically sent to your [facility] pharmacy in [place], along with a daily probiotic to take while you take the antibiotic. Also a prescription for daily magnesium supplement was sent in, because you were magnesium deficient, and a prescription for Mucinex, to help with your cough. You were also very sleepy for 2 days as the methamphetamine was passing through your system. An order has been placed for a Home Health agency to give you rehab for strengthening at home, and also to monitor that you are not too sleepy or using any more meth, and that you are improving by taking your antibiotics. We were told that your daughter Antoinette will now be moving in with you to help you in your home. It is recommended that you have close supervision from your daughter when you do all activities, like getting out of bed, walking, toileting, and bathing, because you are at risk of falls. You need to be seen by a Urologist to have a plan for managing that kidney stone. Please contact the office of Dr. Endy Jacobs at [phone], to schedule an appointment. Plan of Treatment: As above. Please also resume all your previous medications. Care Goals: Improvement in symptoms and stabilization are the goals. Assessment: The patient understands and is agreeable with the plan. Additional Instructions or Follow Up instructions: If you have new or worsening symptoms, call your primary care provider for advice, or come to the ER. Follow-Up Care: Home Health - RN, Home Health - PT, Home Health - OT No Smoking: If you smoke, Please STOP! Call for help. Follow-up with: Maryjane Thrasher ARNP [Credentialed Staff Provider] -
--- NOTE | 2023-03-13 11:18 | DISCHARGE SUMMARY ---
Discharge Summary Admit Date: 03/08/23 Discharge Date: 03/13/23 Discharging Provider: Dr Breann Ugalde Primary Care Provider: COLETTE Thrasher Condition at Discharge: Fair Discharge Disposition: Home Health Service - [facility] History of Present Illness: 67 Y old female with PMH HTN, Hyperlipidemia, anxiety, brought in by EMD due to decreases responsiveness. Pt is quite sleepy at this time so most of history from the ER physician. Apparently patient was discharged from a SNF about 4 days ago. History of poor oral intake over those 4 days. On presentaion, patient was hypotensive and lethargic. Labs showed WBC 17, Heel Seat Fitter Machine 4.0, Mag 1, Ca 11.3, CPK 765, UA positive for WBC, Urine tox positive for meth, CXR neg. In ER, patient was given empiric IV rocephin and started on iv fluids. Patient is admitted due to severe sepsis, UTI, Acute encephalopathy, Acute rhabdomyolysis, BREANNA, Hypomagnesemia, and dehydration. - HOSPITAL COURSE Hospital Course: (1) Sepsis A UTI was the source. She had elevated WBC 17, tachycardia HR 104, low BP 70/40, altered mental status and BREANNA creat 4. All improved with treatment. (2) UTI due to Klebsiella She had abn UA with many bacteria and high WBC, at admission. The urine cx grew Klebsiella. Her altered mental status was felt to be from the infection on top of meth withdrawal. The abdomen/pelvis CT imaging did show a persistent renal stone in the parenchyma of the kidney, seen on prior CT scans. She was put on empiric IV ceftriaxone, then changed to oral Cipro with plan for a 7 day total course of antibx. (3) Kidney stone CT scan did confirm that she has a kidney stone in the parenchyma of the kidney. I was concerned that this is the nidus of her recurrent UTIs which she had 2 months ago then 1 months ago and now currently. Urology consult was done by Dr Jacobs and he wrote that no Inpt special management was needed, and to see him as an outpatient. Outpt Urology is advised because of the presence of the stone and recurrent UTI, and we learned she is incontinent of urine and unaware of it. (4) Acute kidney injury She presented with a creatinine of 4.0. This was likely due to dehydration and rhabdo. She got many days of gentle hydration and the creat normalized. (5) Rhabdomyolysis Probably from laying for prolonged period of time. She has had this before. She got many days of gentle hydration and the CK normalized. (6) Encephalopathy Family reported that when she got home from SNF 4 days previously, she immediately started to decline w/ less oral intake and became more weak and sleepy. This was felt to be multifactorial: from the sepsis and UTI but also from uremia and the meth withdrawal causing hypersomnolence. Her alertness slowly improved. Social work was consulted regarding her meth use, and she denied she was using. I suspect she may need more caregivers at home going forward. I discussed this with the son Ruben at bedside, her DPOA (7) Methamphetamine abuse She was hypersomnolent for 3 days, only answered 2-word sentences, and awoke confused and irritable. Her chart says there was no history of substance abuse. On this admission her tox screen shows positive meth as well as tricyclic's (she is on Amitriptyline). I spoke to the [facility]'s significant other Lupe at admission in person, who said that the patient admitted to them she used meth 2 months ago but denied she used it recently. Her tox screen was retested to see if she had a lab error. The repeat [facility] toxicology screen was (+) for meth. I asked the pt where she is getting meth into her body and she said she "has no idea". When I discussed the repeat positive meth finding with her son Ruben, the DPOA, he said he "thinks he knows where it is coming from" and will dispose of it. SW described that patient lives alone in a trailer that has broken floor and rats. On the day before discharge, the pt admitted to me she was in fact using meth, because she "had it around the house". Social work consult was requested regarding her meth use and she wanted no assistance. (8) Hypomagnesemia Likely from severely diminished oral intake for days; family reported that when she got home from SNF, she immediately started to decline w/ less oral intake and became more weak. We replaced with magnesium IV riders. (9) Generalized weakness She had become very weak presumably from 3 hospital stays over 3 mos, however had just got home from a SNF 4 days before this admission. She was seen by PT and OT, who advised rehab at a SNF. She refused that saying "because I want to go home". I discussed this with her son, OSCAR, and he stated that his sister is signing out of her inpatient substance abuse facility and will be living with the patient and will be her caregiver. SW confirmed that would be the plan after discharge. (10) Cough She had a wet, rattly cough, that sounds like croup. She tested negative for parainfluenza virus at admission. A CXR (PA and Lat) was repeated and showed no acute pulm disease. Sputum culture was ordered, but she made no sputum to send off. I ordered Mucinex which helped. (11) HTN The patient presented hypotensive. She received aggressive IV crystalloid replacement. Her blood pressure normalized. She carries a history of hypertension. (The patient has been unable to tolerate Norvasc because it caused headaches and side effect of leg edema). We resumed her antihypertensives several days before discharge, no longer using Norvasc (12) Morbid obesity with BMI of 40.0-44.9, adult This complicates all her care - ALLERGIES Allergies/Adverse Reactions: Allergies Allergy/AdvReac Type Severity Reaction Status Date / Time morphine Allergy Severe Rash Verified 01/30/23 08:01 Penicillins Allergy Intermediate Rash Verified 01/30/23 08:01 - MEDICATIONS Home Medications: Ambulatory Orders Medication Instructions Recorded Confirmed Albuterol Sulfate [Proair 1 puffs INH Q4H PRN 11/09/15 03/09/23 Respiclick] Atorvastatin Calcium [Lipitor] 80 mg PO QPM 01/06/23 03/09/23 Cyclobenzaprine [Flexeril] 10 mg PO TID PRN 01/06/23 03/09/23 Metoprolol Succinate [Toprol Xl] 25 mg PO DAILY 01/06/23 03/09/23 Pregabalin [Lyrica] 150 mg PO BID 01/06/23 03/09/23 lisinopriL [Lisinopril] 10 mg PO QPM 01/06/23 03/09/23 Amitriptyline [Elavil] 10 mg PO HS #30 tablet 01/14/23 03/09/23 oxyBUTYnin chloride [Oxybutynin 15 mg PO DAILY 01/30/23 03/09/23 Chloride ER] Ipratropium/Albuterol [Duoneb] 3 ml INH Q6H #120 ml 01/31/23 03/09/23 Ciprofloxacin [Cipro] 500 mg PO BID #16 tab 03/13/23 Magnesium Oxide [Mag Ox] 400 mg PO DAILY #14 tab 03/13/23 Saccharomyces Boulardii [Florastor] 250 mg PO DAILY #4 cap 03/13/23 guaiFENesin [Mucinex] 600 mg PO BID #14 tab 03/13/23 - PHYSICAL EXAM AT DISCHARGE General Appearance: positive: No acute distress, Alert, Other (Obese female, disheveled.) Eyes Bilateral: positive: Normal inspection, EOMI ENT: positive: ENT inspection nml, No signs of dehydration, Other (dentition) Neck: positive: Nml inspection, No JVD Respiratory: positive: No respiratory distress, Breath sounds nml Cardiovascular: positive: Regular rate & rhythm, No murmur (distant health sounds due to obesity.) Abdomen: positive: Non-tender, Nml bowel sounds, Other (Obese with a pannus.) Skin: positive: Warm, Dry Extremities: positive: Other (1+ tibial edema, tenderness shins.) Neurologic/Psychiatric: positive: Oriented x3, Motor nml - LABS Result Diagrams: 03/13/23 04:27 03/13/23 04:27 - DIAGNOSTIC IMAGING Diagnostic Imaging Results: Final report reviewed - FOLLOW UP Follow Up: See PCP and Urologist in 1-2 weeks for a hospital follow-up visit. - TIME SPENT Time Spent in Discharge (Minutes): 40
[2023-03-13 15:41] VITALS: BP 176/82; O2SAT 96
[2023-03-13] MEDS ORDERED: lisinopriL 5 MG TABLET PO SCH (17:00)
[2023-03-14] MEDS ORDERED: METOPROLOL SUCCINATE 25 MG TABLET PO SCH (09:00)
--- NOTE | 2023-04-08 08:41 | ED Physician Documentation ---
ED Addendum - Addendum Addendum: 04/08/23 08:40 Care of patient signed to myself by Dr. Jenkins on 03/09/2023. Labs and imaging reviewed. UA significant for UTI. Rocephin ordered for coverage. Admitted to hospitalist service for further treatment of her condition. Hemodynamically stable at time of admission.
== END 2023-03-13 16:41 | disposition home health service (06) | DRG 872 ==
LOC: ED 18:25 → MS2 22:59
PROVIDERS: ADMIT Internal Medicine; ATTEND Internal Medicine
DX: I95.9 Hypotension, unspecified (principal); E86.0 Dehydration; A41.59 Other Gram-negative sepsis; R41.82 Altered mental status, unspecified; N17.9 Acute kidney failure, unspecified; M62.82 Rhabdomyolysis; G93.40 Encephalopathy, unspecified; F15.13 Other stimulant abuse with withdrawal; Z20.822 Contact with and (suspected) exposure to COVID-19; Z66 Do not resuscitate; Z68.41 Body mass index [BMI] 40.0-44.9, adult; N20.0 Calculus of kidney; E83.42 Hypomagnesemia; I10 Essential (primary) hypertension; E66.01 Morbid (severe) obesity due to excess calories; J45.909 Unspecified asthma, uncomplicated; E11.9 Type 2 diabetes mellitus without complications; R65.20 Severe sepsis without septic shock; D72.829 Elevated white blood cell count, unspecified; E78.5 Hyperlipidemia, unspecified; R05.9 Cough, unspecified; Z79.899 Other long term (current) drug therapy; Z88.0 Allergy status to penicillin; Z88.5 Allergy status to narcotic agent
CPT/HCPCS: 36415; 51702; 71045; 71046; 74176; 80048; 80053; 80306; 80307; 81001; 82550; 82803; 83036; 83605; 83690; 83735; 84443; 85025; 87040; 87077; 87086; 87181; 87493; 87633; 93005; 94640; 96360; 97116; 97162; 97166; 97530; 99284; 99285; A9270; G0480; 80320; 80329; 81003

== ENCOUNTER 2023-04-29 08:00 | Outpatient (CLI) | payer MEDICARE, MEDICAID ==
--- NOTE | 2023-04-29 15:32 | XRAY Report ---
PROCEDURE: Shoulder 3 View LT INDICATIONS: LEFT SHOULDER PAIN TECHNIQUE: 4 views of the shoulder were acquired. COMPARISON: Left shoulder x-ray 01/15/2022 FINDINGS: Bones: No fractures or dislocations. Severe degenerative changes of the left glenohumeral joint wit h joint space narrowing, subchondral sclerosis and osteophyte formation. Moderate acromioclavicular j oint degeneration. No suspicious bony lesions. Visualized ribs appear intact. Soft tissues: No suspicious soft tissue calcifications. The visualized lungs are within normal limi ts. IMPRESSION: Severe degenerative changes of the left glenohumeral joint and moderate of the left acromioclavicular joint. Reviewed by: Gael Pacheco MD on 04/29/2023 3:30 PM PDT Approved by: Gael Pacheco MD on 04/29/2023 3:30 PM PDT Station ID: [id number]
== END 2023-04-29 23:59 | disposition home or self-care (01) ==
LOC: DI.WOS 08:00
PROVIDERS: ATTEND Physician Assistant Surgical
DX: M19.012 Primary osteoarthritis, left shoulder (principal)

== ENCOUNTER 2023-09-09 09:01 | Outpatient (CLI) | payer MEDICARE, MEDICAID ==
[2023-09-09 15:20] LABS: BASOPHILS # (AUTO) 0.1 10^3/uL (0.0-0.1); BASOPHILS % (AUTO) 0.8 %; EOSINOPHILS # (AUTO) 0.7 10^3/uL (0.0-0.7); EOSINOPHILS % (AUTO) 8.4 %; LYMPHOCYTES # (AUTO) 3.6 10^3/uL (1.5-3.5); MEAN CORPUSCULAR HEMOGLOBIN 24.9 pg (27.0-31.0); MEAN CORPUSCULAR HGB CONC 28.6 g/dL (32.0-36.0); MEAN CORPUSCULAR VOLUME 87.3 fL (81.0-99.0); MEAN PLATELET VOLUME 12.9 fL (7.9-10.8); MONOCYTES # (AUTO) 0.6 10^3/uL (0.0-1.0); MONOCYTES % (AUTO) 7.2 %; NEUTROPHILS # (AUTO) 3.4 10^3/uL (1.5-6.6); NEUTROPHILS % (AUTO) 40.4 %; PLT - PLATELET COUNT 207 10^3/uL (130-450); RED BLOOD COUNT 4.01 10^6/uL (4.20-5.40); RED CELL DISTRIBUTION WIDTH 16.6 % (12.0-15.0); WHITE BLOOD COUNT 8.4 x10^3/uL (4.8-10.8)
[2023-09-09 16:24] LABS: PLATELET ESTIMATE, MANUAL NORMAL (130-450,000) (NORMAL); PLATELET MORPHOLOGY NORMAL APPEARANCE (NORMAL); SLIDE REVIEW? Indicated
[2023-09-09 16:34] LABS: CHOLESTEROL 141 mg/dL; HDL CHOLESTEROL 28 mg/dL; LDL CHOLESTEROL,CALCULATED 43 mg/dL; LDL/HDL RATIO 1.5 (<4.4); TRIGLYCERIDES 350 mg/dL (48-352); VLDL CHOLESTEROL 70 mg/dL
[2023-09-09 16:39] LABS: THYROID STIMULATING HORMONE 4.35 uIU/mL (0.34-5.60)
[2023-09-09 17:08] LABS: ALBUMIN 4.2 g/dL (3.2-5.5); ALBUMIN/GLOBULIN RATIO 1.5 (1.0-2.2); ALKALINE PHOSPHATASE 70 IU/L (42-121); ALT ALANINE AMINOTRANSFERASE 22 IU/L (10-60); AST ASPARTATE AMINOTRANSFERASE 21 IU/L (10-42); BILIRUBIN,TOTAL 0.3 mg/dL (0.2-1.0); BUN - BLOOD UREA NITROGEN 23 mg/dL (6-20); CALCIUM 11.3 mg/dL (8.5-10.3); CARBON DIOXIDE - CO2 31 mmol/L (21-32); CHLORIDE 106 mmol/L (101-111); CREATININE 1.3 mg/dL (0.6-1.3); GFR - MDRD 41 (>89); GLUCOSE 105 mg/dL (74-104); POTASSIUM 4.4 mmol/L (3.5-4.5); SODIUM 141 mmol/L (135-145)
== END 2023-09-09 09:02 | disposition home or self-care (01) ==
LOC: LAB.S 09:01
PROVIDERS: ATTEND Registered Nurse
DX: Z13.228 Encounter for screening for other metabolic disorders (principal); Z13.220 Encounter for screening for lipoid disorders; Z13.29 Encounter for screening for other suspected endocrine disorder; Z13.0 Encounter for screening for diseases of the blood and blood-forming organs and certain disorders involving the immune mechanism
CPT/HCPCS: 36415; 80053; 80061; 83721; 84443; 85025

== ENCOUNTER 2023-09-15 11:07 | Outpatient (CLI) | payer MEDICARE, MEDICAID ==
--- NOTE | 2023-09-15 14:21 | XRAY Report ---
PROCEDURE: Chest 2V INDICATIONS: DYSPNEA,MILD TECHNIQUE: 2 views of the chest were acquired. COMPARISON: 03/10/2023. FINDINGS: Surgical changes and devices: None. Lungs and pleura: No pleural effusions or pneumothorax. Possible left midlung zone opacity, may repr esent atelectasis, scarring or infection. Mediastinum: Mediastinal contours appear normal. Heart size is normal. Bones and chest wall: No suspicious bony lesions. Overlying soft tissues appear unremarkable. IMPRESSION: Possible left midlung zone opacity, may represent linear atelectasis, scarring or infection. Recommen d follow-up radiograph in 6-12 weeks to assess stability or resolution. Reviewed by: Gael Pacheco MD on 09/15/2023 2:20 PM PDT Approved by: Gael Pacheco MD on 09/15/2023 2:20 PM PDT Station ID: [id number]
[2023-09-15 15:16] LABS: BASOPHILS # (AUTO) 0.1 10^3/uL (0.0-0.1); BASOPHILS % (AUTO) 0.8 %; EOSINOPHILS # (AUTO) 0.4 10^3/uL (0.0-0.7); EOSINOPHILS % (AUTO) 6.2 %; HCT - HEMATOCRIT 32.6 % (37.0-47.0); HGB - HEMOGLOBIN 9.8 g/dL (12.0-16.0); LYMPHOCYTES # (AUTO) 2.6 10^3/uL (1.5-3.5); LYMPHOCYTES % (AUTO) 37.1 %; MEAN CORPUSCULAR HEMOGLOBIN 25.8 pg (27.0-31.0); MEAN CORPUSCULAR HGB CONC 30.1 g/dL (32.0-36.0); MEAN CORPUSCULAR VOLUME 85.8 fL (81.0-99.0); MEAN PLATELET VOLUME 13.3 fL (7.9-10.8); MONOCYTES # (AUTO) 0.5 10^3/uL (0.0-1.0); MONOCYTES % (AUTO) 6.6 %; NEUTROPHILS # (AUTO) 3.5 10^3/uL (1.5-6.6); PLT - PLATELET COUNT 180 10^3/uL (130-450); RED CELL DISTRIBUTION WIDTH 16.8 % (12.0-15.0); WHITE BLOOD COUNT 7.1 x10^3/uL (4.8-10.8)
[2023-09-15 16:21] LABS: FERRITIN 5.7 ng/mL (11.0-306.8)
== END 2023-09-15 11:08 | disposition home or self-care (01) ==
LOC: DI.S 11:07
PROVIDERS: ATTEND Registered Nurse
DX: R06.00 Dyspnea, unspecified (principal); E83.52 Hypercalcemia; D64.9 Anemia, unspecified
CPT/HCPCS: 36415; 82306; 82330; 82607; 82728; 82746; 83540; 83970; 84466; 85025

== ENCOUNTER 2023-10-14 10:47 | Outpatient (CLI) | payer MEDICARE, MEDICAID ==
[2023-10-14] MEDS: ALBUTEROL 1 PUFF INH STA (12:19)
== END 2023-10-14 10:48 | disposition home or self-care (01) ==
LOC: RT 10:47
PROVIDERS: ATTEND Registered Nurse
DX: R06.00 Dyspnea, unspecified (principal)
CPT/HCPCS: 94060; 94729

== ENCOUNTER 2023-10-24 19:30 | Emergency (ER) | payer MEDICARE, MEDICAID ==
--- NOTE | 2023-10-24 20:33 | ED Physician Documentation ---
History of Present Illness - Stated complaint Stated Complaint: SOA - Chief complaint Chief Complaint: Resp - History obtained from History obtained from: Patient - Additonal information Additional information: 68yF with pmh dm2, asthma p/w soa X few weeks with worsening today, along with nonproductive cough and fatigue. denies fever, hemoptysis, leg swelling, orthopnea, cp. +TURNER. also with clear rhinorrhea. 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 HEENT: None Psych: Anxiety, Panic attacks Musculoskeletal: Other Derm: None - Past Surgical History Past Surgical History: Yes General: Appendectomy, Colonoscopy Ortho: Hip replacement - Present Medications Home Medications: Ambulatory Orders Medication Instructions Recorded Confirmed Albuterol Sulfate [Proair 1 puffs INH Q4H PRN 11/09/15 03/09/23 Respiclick] Atorvastatin Calcium [Lipitor] 80 mg PO QPM 01/06/23 03/09/23 Cyclobenzaprine [Flexeril] 10 mg PO TID PRN 01/06/23 03/09/23 Metoprolol Succinate [Toprol Xl] 25 mg PO DAILY 01/06/23 03/09/23 Pregabalin [Lyrica] 150 mg PO BID 01/06/23 03/09/23 lisinopriL [Lisinopril] 10 mg PO QPM 01/06/23 03/09/23 Amitriptyline [Elavil] 10 mg PO HS #30 tablet 01/14/23 03/09/23 oxyBUTYnin chloride [Oxybutynin 15 mg PO DAILY 01/30/23 03/09/23 Chloride ER] Ipratropium/Albuterol [Duoneb] 3 ml INH Q6H #120 ml 01/31/23 03/09/23 Ciprofloxacin [Cipro] 500 mg PO BID #16 tab 03/13/23 Magnesium Oxide [Mag Ox] 400 mg PO DAILY #14 tab 03/13/23 Saccharomyces Boulardii [Florastor] 250 mg PO DAILY #4 cap 03/13/23 guaiFENesin [Mucinex] 600 mg PO BID #14 tab 03/13/23 levoFLOXacin [Levofloxacin] 750 mg PO QDAC #14 tablet 10/24/23 - Allergies Allergies/Adverse Reactions: Allergies Allergy/AdvReac Type Severity Reaction Status Date / Time morphine Allergy Severe Rash Verified 10/24/23 19:42 Penicillins Allergy Intermediate Rash Verified 10/24/23 19:42 - Social History Does the pt smoke?: No Smoking Status: Never smoker Does the pt drink ETOH?: No Does the pt have substance abuse?: No - Immunizations Immunizations are current?: No Immunizations: TDAP >10years/unknown - POLST Patient has POLST: No POLST Status: DNR (Daughter is in the room when mom says she wants to be DNR, DNI) Results - Vitals Vitals: Vital Signs - 24 hr 10/24/23 19:35 Temperature 36.5 C Heart Rate 108 H Respiratory 25 H Rate Blood Pressure 120/93 H O2 Saturation 100 Oxygen O2 Source Room air - Labs Labs: Laboratory Tests 10/24/23 10/24/23 10/24/23 20:00 20:00 20:00 WBC 11.7 H RBC 3.96 L Hgb 10.3 L Hct 34.6 L MCV 87.4 MCH 26.0 L MCHC 29.8 L RDW 18.0 H Plt Count 202 MPV 12.7 H Neut # (Auto) 6.1 Lymph # (Auto) 3.7 H [place] # (Auto) 0.8 Eos # (Auto) 1.0 H Baso # (Auto) 0.1 Absolute Nucleated RBC 0.00 Nucleated RBC % 0.0 VBG pH VBG pCO2 VBG pO2 VBG HCO3 VBG Total CO2 VBG O2 Saturation VBG Base Excess Sodium 140 Potassium 4.2 Chloride 105 Carbon Dioxide 29 Anion Gap 6.0 BUN 23 H Creatinine 2.1 H Estimated GFR (MDRD) 23 L Glucose 117 H Lactic Acid Calcium 11.8 H Total Bilirubin 0.3 AST 22 ALT 27 Alkaline Phosphatase 75 Total Protein 6.8 Albumin 4.4 Globulin 2.4 Albumin/Globulin Ratio 1.8 Lipase 13 Nasal Adenovirus (PCR) NOT DETECTED Nasal B. parapertussis DNA (PCR) NOT DETECTED Nasal Coronavir 229E PCR NOT DETECTED Nasal Coronavir HKU1 PCR NOT DETECTED Nasal Coronavir NL63 PCR NOT DETECTED Nasal Coronavir OC43 PCR NOT DETECTED Nasal Enterovir/Rhinovir PCR NOT DETECTED Nasal Influenza B PCR NOT DETECTED Nasal Influenza A PCR NOT DETECTED Nasal Parainfluen 1 PCR NOT DETECTED Nasal Parainfluen 2 PCR NOT DETECTED Nasal Parainfluen 3 PCR NOT DETECTED Nasal Parainfluen 4 PCR NOT DETECTED Nasal RSV (PCR) NOT DETECTED Nasal B.pertussis DNA PCR NOT DETECTED Nasal C.pneumoniae (PCR) NOT DETECTED Robinson Human Metapneumo PCR NOT DETECTED Nasal M.pneumoniae (PCR) NOT DETECTED Nasal SARS-CoV-2 (PCR) NOT DETECTED 10/24/23 10/24/23 20:41 20:41 WBC RBC Hgb Hct MCV MCH MCHC RDW Plt Count MPV Neut # (Auto) Lymph # (Auto) [place] # (Auto) Eos # (Auto) Baso # (Auto) Absolute Nucleated RBC Nucleated RBC % VBG pH 7.379 VBG pCO2 46.8 VBG pO2 31.1 VBG HCO3 27.0 VBG Total CO2 28.4 VBG O2 Saturation 61.9 VBG Base Excess 1.5 Sodium Potassium Chloride Carbon Dioxide Anion Gap BUN Creatinine Estimated GFR (MDRD) Glucose Lactic Acid 1.5 Calcium Total Bilirubin AST ALT Alkaline Phosphatase Total Protein Albumin Globulin Albumin/Globulin Ratio Lipase Nasal Adenovirus (PCR) Nasal B. parapertussis DNA (PCR) Nasal Coronavir 229E PCR Nasal Coronavir HKU1 PCR Nasal Coronavir NL63 PCR Nasal Coronavir OC43 PCR Nasal Enterovir/Rhinovir PCR Nasal Influenza B PCR Nasal Influenza A PCR Nasal Parainfluen 1 PCR Nasal Parainfluen 2 PCR Nasal Parainfluen 3 PCR Nasal Parainfluen 4 PCR Nasal RSV (PCR) Nasal B.pertussis DNA PCR Nasal C.pneumoniae (PCR) Robinson Human Metapneumo PCR Nasal M.pneumoniae (PCR) Nasal SARS-CoV-2 (PCR) PD Medical Decision Making - ED course ED course: 68yF p/w cough X 2 weeks with crackles and decreased breath sounds in RLL on lung auscultation. CXR official read showed no disease but given clinical picture I am treating for pneumonia. offered inpatient admission but patient declined therefore strict return precautions given. plan to f/u with pcp promptly. breanna discussed and need for hydration. Departure - Departure Disposition: 01 Home, Self Care Clinical Impression: Pneumonia, BREANNA (acute kidney injury) Condition: Stable Instructions: Pneumonia Dc, Injury Acute Kidney Dc Prescriptions: levoFLOXacin [Levofloxacin] 750 mg PO QDAC #14 tablet Comments: You were seen in the emergency department for pneumonia and kidney injury. Please follow up with your doctor this week or with walk in clinic for recheck. Antibiotics sent electronically to [place] [facility]. Please follow-up with your primary care provider and return to the emergency department if you have any new or worsening symptoms or other concerns. Forms: PCP List
[2023-10-24 20:39] LABS: BASOPHILS # (AUTO) 0.1 10^3/uL (0.0-0.1); BASOPHILS % (AUTO) 0.7 %; EOSINOPHILS % (AUTO) 8.3 %; HCT - HEMATOCRIT 34.6 % (37.0-47.0); HGB - HEMOGLOBIN 10.3 g/dL (12.0-16.0); LYMPHOCYTES # (AUTO) 3.7 10^3/uL (1.5-3.5); LYMPHOCYTES % (AUTO) 31.5 %; MEAN CORPUSCULAR HGB CONC 29.8 g/dL (32.0-36.0); MEAN CORPUSCULAR VOLUME 87.4 fL (81.0-99.0); MEAN PLATELET VOLUME 12.7 fL (7.9-10.8); MONOCYTES # (AUTO) 0.8 10^3/uL (0.0-1.0); MONOCYTES % (AUTO) 6.7 %; NEUTROPHILS # (AUTO) 6.1 10^3/uL (1.5-6.6); NEUTROPHILS % (AUTO) 52.3 %; PLT - PLATELET COUNT 202 10^3/uL (130-450); RED BLOOD COUNT 3.96 10^6/uL (4.20-5.40); WHITE BLOOD COUNT 11.7 x10^3/uL (4.8-10.8)
[2023-10-24 20:48] LABS: ALBUMIN 4.4 g/dL (3.2-5.5); ALBUMIN/GLOBULIN RATIO 1.8 (1.0-2.2); BILIRUBIN,TOTAL 0.3 mg/dL (0.2-1.0); CALCIUM 11.8 mg/dL (8.5-10.3); CREATININE 2.1 mg/dL (0.6-1.3); POTASSIUM 4.2 mmol/L (3.5-4.5); TOTAL PROTEIN 6.8 g/dL (6.4-8.9)
[2023-10-24 20:53] LABS: VBG BASE EXCESS 1.5 mmol/L (-2 - +2); VBG OXYGEN SATURATION 61.9 % (60-80); VBG PCO2 46.8 mmHg (41-51); VBG PH 7.379 (7.31-7.41); VBG PO2 31.1 mmHg (25-47); VBG TOTAL CO2 28.4 mmol/L (24-29)
[2023-10-24] MEDS: SODIUM CHLORIDE 0.9% 500 ML IV STA (20:54)
--- NOTE | 2023-10-24 21:08 | XRAY Report ---
PROCEDURE: Chest 2V INDICATIONS: soa, cough X few weeks TECHNIQUE: 2 views of the chest were acquired. COMPARISON: 09/15/2023. FINDINGS: Surgical changes and devices: None. Lungs and pleura: No pleural effusions or pneumothorax. Lungs are clear. Mediastinum: Mediastinal contours appear normal. Heart size is normal. Bones and chest wall: No suspicious bony lesions. Overlying soft tissues appear unremarkable. IMPRESSION: No acute cardiopulmonary process. No focal airspace disease. Reviewed by: Jarred Clemens MD on 10/24/2023 9:07 PM PDT Approved by: Jarred Clemens MD on 10/24/2023 9:07 PM PDT Station ID: [id number]
[2023-10-24 22:08] LABS: B. PARAPERTUSSIS- RESP PCR PAN NOT DETECTED; B. PERTUSSIS- RESP PCR PANEL NOT DETECTED; C. PNEUMONIAE- RESP PCR PANEL NOT DETECTED; CORONAVIRUS 229E-RESP PCR NOT DETECTED; CORONAVIRUS HKU1-RESP PCR NOT DETECTED; CORONAVIRUS NL63-RESP PCR NOT DETECTED; CORONAVIRUS OC43-RESP PCR NOT DETECTED; HUMAN METAPNEUMOVIRUS NOT DETECTED; INFLUENZA A- RESP PCR PANEL NOT DETECTED; INFLUENZA B - RESP PCR PANEL NOT DETECTED; M. PNEUMONIAE- RESP PCR PANEL NOT DETECTED; PARAINFLUENZA VIRUS 1 NOT DETECTED; PARAINFLUENZA VIRUS 2 NOT DETECTED; PARAINFLUENZA VIRUS 3 NOT DETECTED; PARAINFLUENZA VIRUS 4 NOT DETECTED; RHINOVIRUS/ENTEROVIRUS NOT DETECTED; RSV- RESP PCR PANEL NOT DETECTED; SARS-CoV-2 -RESP PCR PANEL NOT DETECTED
[2023-10-24] MEDS: levoFLOXacin 750 MG/150 ML 750 MG/150 ML BAG IV STA (22:09)
[2023-10-24 23:39] VITALS: BP 151/94; O2SAT 98
== END 2023-10-25 00:06 | disposition home or self-care (01) ==
LOC: ED 19:30
DX: J18.9 Pneumonia, unspecified organism (principal); N17.9 Acute kidney failure, unspecified; Z66 Do not resuscitate
CPT/HCPCS: 36415; 80053; 82803; 83605; 83690; 85025; 87040; 87633; 96365; 96366; 99284

== ENCOUNTER 2023-10-28 09:05 | Outpatient (CLI) | payer MEDICARE, MEDICAID ==
[2023-10-28 15:33] LABS: BASOPHILS # (AUTO) 0.1 10^3/uL (0.0-0.1); BASOPHILS % (AUTO) 0.8 %; EOSINOPHILS % (AUTO) 9.9 %; HCT - HEMATOCRIT 36.9 % (37.0-47.0); LYMPHOCYTES # (AUTO) 3.2 10^3/uL (1.5-3.5); LYMPHOCYTES % (AUTO) 32.4 %; MEAN CORPUSCULAR HEMOGLOBIN 26.3 pg (27.0-31.0); MEAN CORPUSCULAR HGB CONC 29.8 g/dL (32.0-36.0); MEAN CORPUSCULAR VOLUME 88.3 fL (81.0-99.0); MEAN PLATELET VOLUME 13.7 fL (7.9-10.8); MONOCYTES # (AUTO) 0.6 10^3/uL (0.0-1.0); MONOCYTES % (AUTO) 6.3 %; NEUTROPHILS # (AUTO) 4.9 10^3/uL (1.5-6.6); NEUTROPHILS % (AUTO) 49.8 %; PLT - PLATELET COUNT 200 10^3/uL (130-450); RED BLOOD COUNT 4.18 10^6/uL (4.20-5.40); RED CELL DISTRIBUTION WIDTH 18.8 % (12.0-15.0); WHITE BLOOD COUNT 9.8 x10^3/uL (4.8-10.8)
[2023-10-28 16:10] LABS: ALBUMIN 4.6 g/dL (3.2-5.5); ALBUMIN/GLOBULIN RATIO 1.8 (1.0-2.2); BILIRUBIN,TOTAL 0.3 mg/dL (0.2-1.0); CREATININE 1.2 mg/dL (0.6-1.3); POTASSIUM 4.3 mmol/L (3.5-4.5); TOTAL PROTEIN 7.2 g/dL (6.4-8.9)
== END 2023-10-28 09:06 | disposition home or self-care (01) ==
LOC: LAB.S 09:05
PROVIDERS: ATTEND Registered Nurse
DX: D72.829 Elevated white blood cell count, unspecified (principal); R00.0 Tachycardia, unspecified; N28.9 Disorder of kidney and ureter, unspecified; R06.00 Dyspnea, unspecified
CPT/HCPCS: 36415; 80053; 85025

== ENCOUNTER 2023-10-28 18:29 | Emergency (ER) | payer MEDICARE, MEDICAID ==
[2023-10-28 18:55] VITALS: BP 175/90
--- NOTE | 2023-10-28 19:57 | ED Physician Documentation ---
History of Present Illness - Stated complaint Stated Complaint: ABNORMAL LABS - Chief complaint Chief Complaint: General - History obtained from History obtained from: Patient - Additonal information Additional information: 68-year-old woman presents at the behest of the clinic regarding abnormal labs. She was seen here 4 days ago for a pneumonia. At that time she had a white count of 11 and some BREANNA with a creatinine of 2.1, it is usually around 1.2 or so. She was advised to have her creatinine rechecked and she went to the clinic today where was rechecked but it was much better at 1.2 but they sent her here for hypercalcemia at 12. She is feeling much better, and looking back in the notes her calcium is chronically high and has been in this range in the past. 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 HEENT: None Psych: Anxiety, Panic attacks Musculoskeletal: Other Derm: None - Past Surgical History Past Surgical History: Yes General: Cholecystectomy, Appendectomy, Colonoscopy Ortho: Hip replacement - Present Medications Home Medications: Ambulatory Orders Medication Instructions Recorded Confirmed Albuterol Sulfate [Proair 1 puffs INH Q4H PRN 11/09/15 03/09/23 Respiclick] Atorvastatin Calcium [Lipitor] 80 mg PO QPM 01/06/23 03/09/23 Cyclobenzaprine [Flexeril] 10 mg PO TID PRN 01/06/23 03/09/23 Metoprolol Succinate [Toprol Xl] 25 mg PO DAILY 01/06/23 03/09/23 Pregabalin [Lyrica] 150 mg PO BID 01/06/23 03/09/23 lisinopriL [Lisinopril] 10 mg PO QPM 01/06/23 03/09/23 Amitriptyline [Elavil] 10 mg PO HS #30 tablet 01/14/23 03/09/23 oxyBUTYnin chloride [Oxybutynin 15 mg PO DAILY 01/30/23 03/09/23 Chloride ER] Ipratropium/Albuterol [Duoneb] 3 ml INH Q6H #120 ml 01/31/23 03/09/23 Ciprofloxacin [Cipro] 500 mg PO BID #16 tab 03/13/23 Magnesium Oxide [Mag Ox] 400 mg PO DAILY #14 tab 03/13/23 Saccharomyces Boulardii [Florastor] 250 mg PO DAILY #4 cap 03/13/23 guaiFENesin [Mucinex] 600 mg PO BID #14 tab 03/13/23 levoFLOXacin [Levofloxacin] 750 mg PO QDAC #14 tablet 10/24/23 - Allergies Allergies/Adverse Reactions: Allergies Allergy/AdvReac Type Severity Reaction Status Date / Time morphine Allergy Severe Rash Verified 10/28/23 18:39 Penicillins Allergy Intermediate Rash Verified 10/28/23 18:39 - Social History Does the pt smoke?: No Smoking Status: Never smoker Does the pt drink ETOH?: No Does the pt have substance abuse?: Yes Substance Use and Type: Meth - Immunizations Immunizations are current?: No Immunizations: TDAP >10years/unknown, Other immun not current - POLST Patient has POLST: No POLST Status: DNR (Daughter is in the room when mom says she wants to be DNR, DNI) PD ED PE NORMAL - Vitals Vital signs reviewed: Yes - General General: Alert and oriented X 3, No acute distress - Cardiac Cardiac: RRR, No murmur - Respiratory Respiratory: Other (Nonlabored breathing, mildly diminished at the right base. Her vape pen is at the bedside.) - Extremities Extremities: No edema - Neuro Neuro: Alert and oriented X 3 Results - Vitals Vitals: Vital Signs - 24 hr 10/28/23 18:40 Temperature 36.6 C Heart Rate 99 Respiratory 20 Rate Blood Pressure 175/90 H O2 Saturation 98 Oxygen O2 Source Room air PD Medical Decision Making - ED course ED course: She presents from the clinic with concern for hypercalcemia but review of the chart shows this is a chronic issue. Her renal function has improved. No emergency medical condition is present. Departure - Departure Disposition: 01 Home, Self Care Clinical Impression: Hypercalcemia Condition: Good Record reviewed to determine appropriate education?: Yes Comments: Your kidney function has improved but your calcium level is high, that said review of the chart shows that premature calcium level is always high. As such there is no emergency medical condition and this can be worked up with your primary care physician. Please follow-up with them for next available appointment. In the interim drink plenty of liquids. Return if worse. Also probably avoid much in the way of calcium containing substances such as milk, or calcium containing antacids like Tums.
[2023-10-28 20:12] VITALS: O2SAT 94
== END 2023-10-28 20:04 | disposition home or self-care (01) ==
LOC: ED 18:29
DX: E83.52 Hypercalcemia (principal); E11.9 Type 2 diabetes mellitus without complications; I10 Essential (primary) hypertension; F41.9 Anxiety disorder, unspecified; J45.909 Unspecified asthma, uncomplicated; K21.9 Gastro-esophageal reflux disease without esophagitis
CPT/HCPCS: 36415; 80053; 85025; 99281; 99283

== ENCOUNTER 2023-11-08 13:53 | Outpatient (CLI) | payer MEDICARE, MEDICAID | END 2023-11-08 23:59 | disposition critical access hospital (66) | LOC: EMS 13:53 | DX: R53.1 Weakness (principal); H53.8 Other visual disturbances; R19.8 Other specified symptoms and signs involving the digestive system and abdomen; R03.1 Nonspecific low blood-pressure reading; Z91.81 History of falling | CPT/HCPCS: A0425; A0427 ==

== ENCOUNTER 2023-11-08 14:36 | Emergency (ER) | payer MEDICARE, MEDICAID ==
--- NOTE | 2023-11-08 14:54 | ED Physician Documentation ---
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 HEENT: None Psych: Anxiety, Panic attacks Musculoskeletal: Other Derm: None - Past Surgical History Past Surgical History: Yes General: Cholecystectomy, Appendectomy, Colonoscopy Ortho: Hip replacement - Present Medications Home Medications: Ambulatory Orders Medication Instructions Recorded Confirmed Albuterol Sulfate [Proair 1 puffs INH Q4H PRN 11/09/15 03/09/23 Respiclick] Atorvastatin Calcium [Lipitor] 80 mg PO QPM 01/06/23 03/09/23 Cyclobenzaprine [Flexeril] 10 mg PO TID PRN 01/06/23 03/09/23 Metoprolol Succinate [Toprol Xl] 25 mg PO DAILY 01/06/23 03/09/23 Pregabalin [Lyrica] 150 mg PO BID 01/06/23 03/09/23 lisinopriL [Lisinopril] 10 mg PO QPM 01/06/23 03/09/23 Amitriptyline [Elavil] 10 mg PO HS #30 tablet 01/14/23 03/09/23 oxyBUTYnin chloride [Oxybutynin 15 mg PO DAILY 01/30/23 03/09/23 Chloride ER] Ipratropium/Albuterol [Duoneb] 3 ml INH Q6H #120 ml 01/31/23 03/09/23 Ciprofloxacin [Cipro] 500 mg PO BID #16 tab 03/13/23 Magnesium Oxide [Mag Ox] 400 mg PO DAILY #14 tab 03/13/23 Saccharomyces Boulardii [Florastor] 250 mg PO DAILY #4 cap 03/13/23 guaiFENesin [Mucinex] 600 mg PO BID #14 tab 03/13/23 levoFLOXacin [Levofloxacin] 750 mg PO QDAC #14 tablet 10/24/23 - Allergies Allergies/Adverse Reactions: Allergies Allergy/AdvReac Type Severity Reaction Status Date / Time morphine Allergy Severe Rash Verified 10/28/23 18:39 Penicillins Allergy Intermediate Rash Verified 10/28/23 18:39 - Social History Does the pt smoke?: No Smoking Status: Never smoker Does the pt drink ETOH?: No Does the pt have substance abuse?: Yes - Immunizations Immunizations are current?: No Immunizations: TDAP >10years/unknown, Other immun not current - POLST Patient has POLST: No POLST Status: DNR (Daughter is in the room when mom says she wants to be DNR, DNI) Results - Vitals Vitals: Oxygen O2 Source Room air
[2023-11-08 15:26] LABS: BASOPHILS % (AUTO) 0.2 %; EOSINOPHILS % (AUTO) 0.1 %; HCT - HEMATOCRIT 31.8 % (37.0-47.0); HGB - HEMOGLOBIN 9.7 g/dL (12.0-16.0); LYMPHOCYTES % (AUTO) 8.1 %; MEAN CORPUSCULAR HEMOGLOBIN 26.3 pg (27.0-31.0); MEAN CORPUSCULAR HGB CONC 30.5 g/dL (32.0-36.0); MEAN CORPUSCULAR VOLUME 86.2 fL (81.0-99.0); MEAN PLATELET VOLUME 13.4 fL (7.9-10.8); NEUTROPHILS % (AUTO) 82.9 %; PLT - PLATELET COUNT 160 10^3/uL (130-450); RED BLOOD COUNT 3.69 10^6/uL (4.20-5.40); RED CELL DISTRIBUTION WIDTH 19.6 % (12.0-15.0); WHITE BLOOD COUNT 20.5 x10^3/uL (4.8-10.8)
--- NOTE | 2023-11-08 15:34 | ED Physician Documentation ---
History of Present Illness - Stated complaint Stated Complaint: GENERALIZED WEAKNESS - Chief complaint Chief Complaint: General - History obtained from History obtained from: Patient, Family - History of Present Illness Timing: How many days ago (2) - Additonal information Additional information: 68-year-old female with a history of COPD and pneumonia has had a recent bout of pneumonia and she felt that she had cleared that was feeling well and subsequently she has become ill again with worsening cough and shortness of breath and as well as generalized weakness. Review of Systems Constitutional: reports: Fever Eyes: denies: Decreased vision Ears: denies: Ear pain Nose: reports: Congestion Throat: denies: Sore throat Cardiac: denies: Chest pain / pressure, Palpitations Respiratory: reports: Dyspnea, Cough, Wheezing GI: reports: Diarrhea. 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 : Incontinence, Frequency HEENT: None Psych: Anxiety, Panic attacks Musculoskeletal: Other Derm: None - Past Surgical History Past Surgical History: Yes General: Cholecystectomy, Appendectomy, Colonoscopy Ortho: Hip replacement - Present Medications Home Medications: Ambulatory Orders Medication Instructions Recorded Confirmed Albuterol Sulfate [Proair 1 puffs INH Q4H PRN 11/09/15 11/09/23 Respiclick] Atorvastatin Calcium [Lipitor] 80 mg PO QPM 01/06/23 11/09/23 Cyclobenzaprine [Flexeril] 10 mg PO TID PRN 01/06/23 11/09/23 Metoprolol Succinate [Toprol Xl] 25 mg PO DAILY 01/06/23 11/09/23 Pregabalin [Lyrica] 150 mg PO BID 01/06/23 11/09/23 lisinopriL [Lisinopril] 10 mg PO QPM 01/06/23 11/09/23 Amitriptyline [Elavil] 10 mg PO HS #30 tablet 01/14/23 11/09/23 oxyBUTYnin chloride [Oxybutynin 15 mg PO DAILY 01/30/23 11/09/23 Chloride ER] Ipratropium/Albuterol [Duoneb] 3 ml INH Q6H #120 ml 01/31/23 11/09/23 Omeprazole 20 mg PO DAILY 11/09/23 11/09/23 diphenhydrAMINE [Benadryl] 25 mg PO Q4-6H 11/09/23 11/09/23 hydroCHLOROthiazide [Hydrodiuril] 12.5 mg PO DAILY 11/09/23 11/09/23 - Allergies Allergies/Adverse Reactions: Allergies Allergy/AdvReac Type Severity Reaction Status Date / Time morphine Allergy Severe Rash Verified 11/08/23 14:55 Penicillins Allergy Intermediate Rash Verified 11/08/23 14:55 - Social History Does the pt smoke?: No Smoking Status: Never smoker Does the pt drink ETOH?: No Does the pt have substance abuse?: Yes - Immunizations Immunizations are current?: No Immunizations: TDAP >10years/unknown, Other immun not current - POLST Patient has POLST: No POLST Status: DNR (Daughter is in the room when mom says she wants to be DNR, DNI) PD ED PE NORMAL - Vitals Vital signs reviewed: Yes (Tachycardic and hypotensive) - General General: No acute distress, Well developed/nourished - HEENT HEENT: Atraumatic, PERRL, EOMI, Other (dry mucous membranes ) - Neck Neck: Supple, no meningeal sign, No bony TTP - Cardiac Cardiac: No murmur, Other (tachy to 100) - Respiratory Respiratory: Other (tachyneic at rest with transmitted upper airway sounds. ) - Abdomen Abdomen: Soft, Non tender - Back Back: No CVA TTP, No spinal TTP - Derm Derm: Normal color, Warm and dry, No rash - Extremities Extremities: No deformity, No edema - Neuro Neuro: Alert and oriented X 3, access tech 2-12 intact, No motor deficit, No sensory deficit, Normal speech Eye Opening: Spontaneous Motor: Obeys Commands Verbal: Oriented GCS Score: 15 - Psych Psych: Normal mood, Normal affect Results - Vitals Vitals: Vital Signs - 24 hr 11/08/23 11/08/23 11/08/23 19:35 20:30 21:30 Temperature Heart Rate 128 H 119 H 109 H Respiratory 20 19 19 Rate Blood Pressure 120/74 113/49 L O2 Saturation 98 95 If not protocol 4 4 : Oxygen Flow, liters/minute 11/08/23 11/08/23 11/08/23 22:00 22:53 23:12 Temperature 38.6 C H 37.3 C 37.3 C Heart Rate 105 H Respiratory 20 Rate Blood Pressure 107/63 O2 Saturation 95 If not protocol 5 : Oxygen Flow, liters/minute 11/09/23 11/09/23 11/09/23 01:35 03:00 04:00 Temperature Heart Rate 93 93 95 Respiratory 18 18 15 Rate Blood Pressure 115/100 H 116/61 90/48 L O2 Saturation 95 95 95 If not protocol 4 5 : Oxygen Flow, liters/minute 11/09/23 11/09/23 11/09/23 04:30 04:45 05:01 Temperature Heart Rate 89 88 88 Respiratory 15 14 15 Rate Blood Pressure 74/35 L 82/50 L 86/38 L O2 Saturation 98 94 95 If not protocol : Oxygen Flow, liters/minute 11/09/23 11/09/23 11/09/23 06:00 08:00 09:00 Temperature Heart Rate 86 90 91 Respiratory 18 17 14 Rate Blood Pressure 115/101 H 117/79 81/59 L O2 Saturation 95 98 97 If not protocol 3 2 2 : Oxygen Flow, liters/minute 11/09/23 11/09/23 11/09/23 09:03 10:00 11:00 Temperature 36.3 C L Heart Rate 89 90 91 Respiratory 13 14 16 Rate Blood Pressure 108/55 L 110/56 L 117/81 H O2 Saturation 98 97 97 If not protocol 2 2 2 : Oxygen Flow, liters/minute Oxygen O2 Source Nasal cannula - Labs Labs: Microbiology 11/08/23 15:30 Blood Culture - Preliminary Blood - Right Arm NO GROWTH AFTER 1 DAY 11/08/23 15:20 Blood Culture - Preliminary Blood NO GROWTH AFTER 1 DAY 11/09/23 00:16 Urine Culture - Preliminary Urine,Random Laboratory Tests 11/08/23 11/08/23 11/08/23 15:20 15:20 15:20 WBC 20.5 H RBC 3.69 L Hgb 9.7 L Hct 31.8 L MCV 86.2 MCH 26.3 L MCHC 30.5 L RDW 19.6 H Plt Count 160 MPV 13.4 H Neut # (Auto) Not Reportable Lymph # (Auto) Not Reportable Story # (Auto) Not Reportable Eos # (Auto) Not Reportable Baso # (Auto) Not Reportable Absolute Nucleated RBC Not Reportable Total Counted 100 Band Neuts % (Manual) 10 Abnorm Lymph % (Manual) 0 Nucleated RBC % Not Reportable Neutrophils # (Manual) 16.8 H Lymphocytes # (Manual) 0.8 L Monocytes # (Manual) 2.9 H Eosinophils # (Manual) 0.0 Basophils # (Manual) 0.0 Differential Comment MANUAL DIFFERENTIAL Manual Slide Review Indicated Platelet Estimate NORMAL (130-450,000) Platelet Morphology NORMAL APPEARANCE RBC Morph Micro Appear 1+ OVALOCYTES VBG pH VBG pCO2 VBG pO2 VBG HCO3 VBG Total CO2 VBG O2 Saturation VBG Base Excess Sodium 138 Potassium 4.6 H Chloride 107 Carbon Dioxide 19 L Anion Gap 12.0 BUN 63 H Creatinine 4.0 H Estimated GFR (MDRD) 11 L Glucose 149 H Lactic Acid 2.8 H Calcium 9.8 Magnesium 2.1 Total Bilirubin 0.5 AST 30 ALT 15 Alkaline Phosphatase 76 Total Creatine Kinase Total Protein 5.5 L Albumin 3.4 Globulin 2.1 Albumin/Globulin Ratio 1.6 Lipase < 10 L Urine Color Urine Clarity Urine pH Ur Specific [place] Urine Protein Urine Glucose (UA) Urine Ketones Urine Occult Blood Urine Nitrite Urine Bilirubin Urine Urobilinogen Ur Leukocyte Esterase Urine RBC Urine WBC Ur Epithelial Cells Ur Squamous Epith Cells Amorphous Sediment Urine Bacteria Ur Microscopic Review Urine Culture Comments SARS-CoV-2 (PCR) 11/08/23 11/09/23 11/09/23 23:35 00:16 00:16 WBC RBC Hgb Hct MCV MCH MCHC RDW Plt Count MPV Neut # (Auto) Lymph # (Auto) Story # (Auto) Eos # (Auto) Baso # (Auto) Absolute Nucleated RBC Total Counted Band Neuts % (Manual) Abnorm Lymph % (Manual) Nucleated RBC % Neutrophils # (Manual) Lymphocytes # (Manual) Monocytes # (Manual) Eosinophils # (Manual) Basophils # (Manual) Differential Comment Manual Slide Review Platelet Estimate Platelet Morphology RBC Morph Micro Appear VBG pH 7.286 L VBG pCO2 38.0 L VBG pO2 81.7 H VBG HCO3 17.7 L VBG Total CO2 18.9 L VBG O2 Saturation 95.1 H VBG Base Excess -8.1 L Sodium 139 Potassium 4.0 Chloride 110 Carbon Dioxide 19 L Anion Gap 10.0 BUN 65 H Creatinine 3.8 H Estimated GFR (MDRD) 12 L Glucose 160 H Lactic Acid Calcium 9.3 Magnesium Total Bilirubin AST ALT Alkaline Phosphatase Total Creatine Kinase Total Protein Albumin Globulin Albumin/Globulin Ratio Lipase Urine Color DARK YELLOW Urine Clarity HAZY Urine pH 5.0 Ur Specific [place] >=1.030 H Urine Protein 30 H Urine Glucose (UA) 100 H Urine Ketones TRACE Urine Occult Blood TRACE-LYSE Urine Nitrite POSITIVE H Urine Bilirubin MODERATE H Urine Urobilinogen 1 (NORMAL) Ur Leukocyte Esterase NEGATIVE Urine RBC 0-5 Urine WBC 4-5 Ur Epithelial Cells RARE Transitional Ur Squamous Epith Cells FEW Squamous Amorphous Sediment Rare Urine Bacteria Moderate H Ur Microscopic Review INDICATED Urine Culture Comments INDICATED SARS-CoV-2 (PCR) 11/09/23 11/09/23 11/09/23 00:50 05:46 05:46 WBC RBC Hgb Hct MCV MCH MCHC RDW Plt Count MPV Neut # (Auto) Lymph # (Auto) Story # (Auto) Eos # (Auto) Baso # (Auto) Absolute Nucleated RBC Total Counted Band Neuts % (Manual) Abnorm Lymph % (Manual) Nucleated RBC % Neutrophils # (Manual) Lymphocytes # (Manual) Monocytes # (Manual) Eosinophils # (Manual) Basophils # (Manual) Differential Comment Manual Slide Review Platelet Estimate Platelet Morphology RBC Morph Micro Appear VBG pH VBG pCO2 VBG pO2 VBG HCO3 VBG Total CO2 VBG O2 Saturation VBG Base Excess Sodium Potassium Chloride Carbon Dioxide Anion Gap BUN Creatinine Estimated GFR (MDRD) Glucose Lactic Acid 1.4 Calcium Magnesium Total Bilirubin AST ALT Alkaline Phosphatase Total Creatine Kinase 2901 H* Total Protein Albumin Globulin Albumin/Globulin Ratio Lipase Urine Color Urine Clarity Urine pH Ur Specific [place] Urine Protein Urine Glucose (UA) Urine Ketones Urine Occult Blood Urine Nitrite Urine Bilirubin Urine Urobilinogen Ur Leukocyte Esterase Urine RBC Urine WBC Ur Epithelial Cells Ur Squamous Epith Cells Amorphous Sediment Urine Bacteria Ur Microscopic Review Urine Culture Comments SARS-CoV-2 (PCR) NOT DETECTED - Rads (name of study) chest Relevant Findings:: Prelim report reviewed (Impression: No acute cardiopulmonary findings), EMP independent interpretation of test (On my evaluation of the patient's chest x-ray I am finding a retrocardiac infiltrate.) Procedures - IVC sono (time) 1520 Bedside IVC sono: IVC measures (cm) (0.82), Dehydration (est 2 liter deficit) PD Medical Decision Making - ED course Complexity details: reviewed results, re-evaluated patient, considered differential, d/w patient, d/w family Reviewed Lab Results: We reviewed a complete blood cell count showing an elevated white blood cell count of 20,500 a depressed hemoglobin of 9.7 most recently being 11.0 hematocrit of 31.8 with her most recent being 36.9 platelets are normal at 160,000 differential shows 10% bands. Chemistries show BUN elevated at 63 creatinine elevated at 4.0 lactic acid elevated at 2.8. potassium is elevated at 4.6. Liver functions appear normal. I interpret these laboratory studies to indicate the patient has likely an overwhelming infection she also appears significantly dehydrated on interrogation of the IVC with POCUS. This may be accounting for part of the patient's elevation in BUN and creatinine as well as the elevation in potassium. Patient's BUN and creatinine were normal 11 days ago. ED course: 68-year-old female presenting to the emergency department with generalized weakness a worsening cough fever and evidence of significant dehydration. She was administered intravenous saline and an x-ray of her chest was obtained I reviewed this film myself found there to be a retrocardiac infiltrate that was not present on her prior film. The patient developed increasing cough she was administered a DuoNeb treatment 10 mg of dexamethasone and a gram of Rocephin intravenously. Still waiting for urine. Patient is left in the care of Dr. Debbie Reed at shift change She was administered additional fluids and her BMP was rechecked without significant improvement and decision to transfer was made. The patient had further decline pressure dropped and she required placement of a central line and pressers. Arrangements were made to transfer the patient to [facility] in [place]. On the afternoon of 11-09-23 she was transferred in improved condition. Departure - Departure Disposition: 02 Transfer Acute Care Hosp Clinical Impression: Dehydration, Acute kidney injury Reactive airway disease with acute exacerbation Qualifiers: Asthma severity: moderate Asthma persistence: persistent Qualified Code(s): J45.41 - Moderate persistent asthma with (acute) exacerbation Pneumonia Qualifiers: Pneumonia type: due to unspecified organism Laterality: unspecified laterality Lung location: unspecified part of lung Qualified Code(s): J18.9 - Pneumonia, unspecified organism Condition: Fair Forms: PCP List Discharge Date/Time: 11/09/23 11:12
[2023-11-08 15:36] LABS: MAGNESIUM 2.1 mg/dL (1.7-2.3)
[2023-11-08 15:42] LABS: ALBUMIN 3.4 g/dL (3.2-5.5); ALBUMIN/GLOBULIN RATIO 1.6 (1.0-2.2); ALKALINE PHOSPHATASE 76 IU/L (42-121); ALT ALANINE AMINOTRANSFERASE 15 IU/L (10-60); AST ASPARTATE AMINOTRANSFERASE 30 IU/L (10-42); BILIRUBIN,TOTAL 0.5 mg/dL (0.2-1.0); BUN - BLOOD UREA NITROGEN 63 mg/dL (6-20); CALCIUM 9.8 mg/dL (8.5-10.3); CARBON DIOXIDE - CO2 19 mmol/L (21-32); CHLORIDE 107 mmol/L (101-111); GFR - MDRD 11 (>89); GLUCOSE 149 mg/dL (74-104); LIPASE < 10 U/L (11-82); POTASSIUM 4.6 mmol/L (3.5-4.5); SODIUM 138 mmol/L (135-145); TOTAL PROTEIN 5.5 g/dL (6.4-8.9)
[2023-11-08 15:48] LABS: SLIDE REVIEW? Indicated
[2023-11-08 15:49] LABS: ABNORMAL LYMPHS % (MANUAL) 0 %
[2023-11-08] MEDS: SODIUM CHLORIDE 0.9% 1,000 ML IV STA ×2 (16:00→21:56)
[2023-11-08 16:27] LABS: BAND NEUTROPHILS % (MANUAL) 10 %; LYMPHOCYTES # (MANUAL) 0.8 10^3/uL (1.5-3.5); LYMPHOCYTES % (MANUAL) 4 %; MONOCYTES # (MANUAL) 2.9 10^3/uL (0.0-1.0); NEUTROPHILS # (MANUAL) 16.8 10^3/uL (1.5-6.6)
[2023-11-08 16:28] LABS: PLATELET MORPHOLOGY NORMAL APPEARANCE (NORMAL); RBC MORPHOLOGY (MULTIPLE) 1+ OVALOCYTES (NORMAL)
[2023-11-08 16:29] LABS: DIFFERENTIAL COMMENT MANUAL DIFFERENTIAL; PLATELET ESTIMATE, MANUAL NORMAL (130-450,000) (NORMAL)
--- NOTE | 2023-11-08 17:45 | XRAY Report ---
PROCEDURE: Chest 2V INDICATIONS: SOa TECHNIQUE: 2 views of the chest were obtained. COMPARISON: 10/24/2023 FINDINGS: Surgical changes and devices: None. Lungs and pleura: No pleural effusions or pneumothorax. Lungs are clear. Mediastinum: Mediastinal contours appear normal. Heart size is normal. Bones and chest wall: No suspicious bony lesions. Overlying soft tissues appear unremarkable. IMPRESSION: No acute cardio pulmonic findings Reviewed by: Micah Greenfield MD on 11/08/2023 4:44 PM AKDT Approved by: Micah Greenfield MD on 11/08/2023 4:44 PM AKDT Station ID: [id number]
[2023-11-08] MEDS ORDERED: cefTRIAXone 1 GM VIAL ONE (19:16)
[2023-11-08] MEDS: cefTRIAXone 1 GM in SODIUM CHLORIDE 0.9% MINIBAG 100 ML IV STA (19:17)
[2023-11-08] MEDS: DEXAMETHASONE 10 MG/ML VIAL IVP STA (19:33)
[2023-11-08] MEDS: IPRATROPIUM/ALBUTEROL 3 ML NEB INH STA (19:35)
[2023-11-08] MEDS: AZITHROMYCIN INJ 500 MG in SODIUM CHLORIDE 0.9% 250 ML IV STA (21:48)
--- NOTE | 2023-11-08 21:55 | ED Physician Documentation ---
ED Addendum - Addendum Addendum: 11/08/23 21:54 Care of patient signed out to me by Dr. Bolton at 2100. Independent review of patient and chart performed. Patient appears to have BREANNA versus acute renal failure with new creatinine of 4, baseline of approximately 1. Loza placed to monitor urine output. 2 L IV fluids ordered and then will recheck BMP. If creatinine improved with fluids then can keep patient here for treatment, however if there is no improvement and patient has little urine output then she will need to be transferred for acute kidney failure. Repeat BMP shows no improvement. Loza with barely 100 cc of brownish urine output despite several liters of IV fluids. VBG shows pH of 7.286. Bicarb drip initiated. Spoke with accepting hospitalist at outside facility, however shortly after patient was accepted to a med/tele bed her blood pressure dropped to 80s systolic with MAP in the 50s. Despite numerous retakes the MAP continue to be below 65, prompting necessity for a central line. Levophed started to have goal MAP of 65. Patient accepted at [facility] ICU by Dr. Myers. Hemodynamically stable, on low-dose Levophed. Care of patient turned back over to Dr. Bolton at 0700 pending transport to outside hospital 11/09/23 05:56 11/09/23 07:16
[2023-11-08] MEDS: ACETAMINOPHEN 325 MG TABLET PO STA (22:23)
[2023-11-09 00:01] LABS: CALCIUM 9.3 mg/dL (8.5-10.3); CREATININE 3.8 mg/dL (0.6-1.3)
[2023-11-09 00:25] LABS: BILIRUBIN,URINE MODERATE (NEGATIVE); GLUCOSE, URINE (UA) 100 mg/dL (NEGATIVE); KETONES,URINE (UA) TRACE mg/dL (NEGATIVE); LEUKOCYTE ESTERASE, URINE NEGATIVE (NEGATIVE); NITRITE,URINE POSITIVE (NEGATIVE); OCCULT BLOOD,URINE TRACE-LYSE (NEGATIVE); PROTEIN,URINE 30 mg/dL (NEGATIVE); UROBILINOGEN,URINE 1 (NORMAL) E.U./dL (NORMAL)
[2023-11-09 00:39] LABS: CLARITY,URINE HAZY (CLEAR)
[2023-11-09 00:41] LABS: AMORPHOUS SEDIMENT,UR Rare /LPF; BACTERIA,URINE Moderate /HPF (None Seen); EPITHELIAL CELLS,UR RARE Transitional /HPF (<= Few); RBC,URINE 0-5 /HPF (0-5); SQUAMOUS EPITHELIAL CELL,UR FEW Squamous (<= Few)
[2023-11-09 01:24] LABS: VBG BASE EXCESS -8.1 mmol/L (-2 - +2); VBG HCO3 17.7 mmol/L (23-28); VBG OXYGEN SATURATION 95.1 % (60-80); VBG PH 7.286 (7.31-7.41); VBG PO2 81.7 mmHg (25-47); VBG TOTAL CO2 18.9 mmol/L (24-29)
--- NOTE | 2023-11-09 01:55 | CT Report ---
PROCEDURE: Abdomen/Pelvis WO INDICATIONS: SEPSIS, NEW RENAL FAILURE, STONE? TECHNIQUE: A CT scan of the abdomen and pelvis was performed without the use of intravenous contrast. Images we re recorded and evaluated at appropriate window settings. Reformats: coronal and sagittal. For radiat ion dose reduction, the following was used: automated exposure control, adjustment of mA and/or kV ac cording to patient size. COMPARISON: 03/09/2023 FINDINGS: Image quality: Metallic streak artifact is seen, which is reduced by the metal suppression algorithm. Lower chest: Dependent atelectasis can be seen. Liver: No contour-deforming mass. Gallbladder and biliary tree: Cholecystectomy. Spleen: No splenomegaly. Pancreas: No pancreatic ductal dilation. Adrenals: No adrenal nodule. Kidneys and ureters: No hydronephrosis. No renal cystic lesion which requires follow up. No solid mas s. There is a nonobstructing stone seen within the inferior left kidney that measures 1 cm and 900 Ho unsfield units. Stomach, bowel and peritoneum: Liquid stool can be seen within the colon, including distally. No patricia tional colonic abnormality is seen. No dilated loops of small bowel are seen. Lymph nodes: No central or retroperitoneal adenopathy. Vessels: No infrarenal aortic aneurysm. PELVIS Reproductive organs: Unremarkable. Bladder: A Loza catheter seen, which decompresses the bladder. Pelvic lymph nodes: No pelvic adenopathy by size criteria. Bones: No aggressive osseous abnormality. Bilateral hip arthroplasty hardware can be seen. Age-approp riate degenerative changes are seen. Other: There is a moderate fat-containing periumbilical hernia. IMPRESSION: There is a nonobstructing 1 cm left-sided kidney stone inferiorly. No ureteral stones or hydronephrosis can be seen. Liquid stool can be seen throughout the colon. Please correlate with clinical diarrhea. Additional findings: Cholecystectomy Loza catheter Bilateral hip arthroplasty hardware Reviewed by: Danny Holder MD on 11/09/2023 12:54 AM MIN Approved by: Danny Holder MD on 11/09/2023 12:54 AM MIN Station ID: [id number]
[2023-11-09] MEDS ORDERED: SODIUM BICARBONATE 8.4% 50 MEQ/50 ML VIAL ONE (02:27)
[2023-11-09] MEDS ORDERED: DEXTROSE 5% 1,000 ML IV ONE (02:42)
[2023-11-09] MEDS: SODIUM BICARBONATE 150 MEQ in DEXTROSE 5% 1,000 ML IV SCH (02:44)
[2023-11-09] MEDS ORDERED: NOREPINEPHRINE/0.9 % NS 8 MG/250 ML BAG IV ONE (05:02)
[2023-11-09 10:14] VITALS: O2SAT 97
--- NOTE | 2023-11-09 10:27 | XRAY Report ---
PROCEDURE: Chest for Line Placement INDICATIONS: confirm central line placement TECHNIQUE: One view of the chest was acquired. COMPARISON: 11/08/2023 FINDINGS: Surgical changes and devices: Right IJ central venous line tip in the upper SVC. No pneumothorax Lungs and pleura: No pleural effusions or pneumothorax. Lungs are clear. Mediastinum: Mediastinal contours appear normal. Heart size is normal. Bones and chest wall: No suspicious bony lesions. Overlying soft tissues appear unremarkable. IMPRESSION: Right IJ central venous line tip in the upper SVC Note: This final report is concordant with the preliminary after-hours interpretation provided by [facility], [employer] Reviewed by: Micah Greenfield MD on 11/09/2023 9:26 AM MIN Approved by: Micah Greenfield MD on 11/09/2023 9:26 AM MIN Station ID: [id number]
[2023-11-09] MEDS: ACETAMINOPHEN 325 MG TABLET PO STA (10:45)
[2023-11-09 11:46] VITALS: BP 117/81
== END 2023-11-09 11:12 | disposition short-term general hospital (02) ==
LOC: EDUNIT# → ED 14:36
DX: J18.9 Pneumonia, unspecified organism (principal); E86.0 Dehydration; N17.9 Acute kidney failure, unspecified; J45.41 Moderate persistent asthma with (acute) exacerbation; J44.9 Chronic obstructive pulmonary disease, unspecified; E11.9 Type 2 diabetes mellitus without complications
CPT/HCPCS: 36415; 51702; 71046; 74176; 80048; 80053; 81001; 82550; 82803; 83605; 83690; 83735; 85025; 87040; 87086; 87635; 96365; 96367; 96375; 99285; A9270; 81003